=== PATIENT | female | born 1945 | race Caucasian/White ===

== ENCOUNTER 2017-05-29 00:51 | Inpatient (IN) | payer MEDICARE, MEDICAID ==
[2017-05-29] MEDS ORDERED: NS 0.9% 1000 ML* 1,000 ML IV SCH (01:30)
[2017-05-29 01:50] LABS: Hematocrit 33 % (35-47); Hemoglobin 10.8 g/dl (12.0-16.0); Mean Corpuscular HGB Conc 33 g/dl (31-36); Mean Corpuscular Hemoglobin 31 pg (27-31); Mean Corpuscular Volume 93 fL (80-97); Mean Platelet Volume 8 um3 (7.4-10.4); Red Blood Count 3.54 10^6/ul (4.0-5.4); Red Cell Distribution Width 16 % (10.5-15); White Blood Count 6.8 10^3/ul (3.5-10.8)
[2017-05-29 02:04] LABS: ALT 17 U/L (7-52); AST 16 U/L (13-39); Albumin 3.9 g/dL (3.2-5.2); Alkaline Phosphatase 51 U/L (34-104); Anion Gap 7 mmol/L (2-11); BUN/Creatinine Ratio 25.5 (8-20); Blood Urea Nitrogen 26 mg/dL (6-24); C Reactive Protein < 1.00 mg/L (< 5.00); CO2 Carbon Dioxide 28 mmol/L (22-32); Calcium 9.3 mg/dL (8.6-10.3); Chloride 97 mmol/L (101-111); Creatine Kinase 62 U/L (10-223); EGFR African American 68.3 (>60); EGFR Non-African American 53.1 (>60); Globulin 3.1 g/dL (2-4); Glucose 83 mg/dL (70-100); Lipase 15 U/L (11.0-82.0); Magnesium 1.9 mg/dL (1.9-2.7); Potassium 4.2 mmol/L (3.5-5.0); Sodium 132 mmol/L (133-145)
[2017-05-29 02:05] LABS: Troponin I 0.02 ng/mL (<0.04)
--- NOTE | 2017-05-29 02:15 | HP ---
H&P (Free Text) History and Physical: PCP: Mario Gordon MD Cardiology: Drew Perez MD Date/Time of Evaluation: 05/29/2017 CC: SOB HPI: Mrs Randhawa is a 71YO female HX CAD/stent x14, DM2 presenting with 2 days of increasing SOB, severe with lying flat and mild/mod with sitting up. She has had some mild nausea without emesis, subjective fevers without chills, sweats, generalized weakness, light-headedness without syncope, normal bowel/bladder, no rash/open wounds, and no cough/congestion. She has had to remove her rings 2nd swelling. She denies HX of similar. PMedHx CAD/LA/stent x14 chronic diastolic HF DM2 HX thyroid CA s/p thyroidectomy on surveillance for concern of recurrence hypothyroidism, post-surgical HTN HLD GERD depression Ambulatory Orders Nursing to reconcile. Levothyroxine TAB* [Synthroid 100 MCG TAB*] 200 mcg PO DAILY 03/16/14 metFORMIN* [Glucophage*] 500 mg PO BID 03/16/14 zzInsulin inj LISPRO* [Humalog*] 125 units SUBCUT DAILY 03/16/14 Aspirin EC Low Dose* [Ecotrin EC Low Dose*] 81 mg PO DAILY 03/12/16 Losartan Potassium 100 mg PO DAILY 03/12/16 Nitroglycerin TAB 0.4 MG* 0.4 mg SL Q5M PRN 03/12/16 Ranolazine [Ranexa] 1,000 mg PO BID 03/12/16 Isosorbide Mononitrate [Isosorbide Mononitrate ER] 60 mg PO 04/20/16 Lubiprostone (NF) [Amitiza (NF)] 8 mcg PO Q12HR 04/20/16 Benzonatate CAP* [Tessalon 100 MG CAP*] 200 mg PO TID PRN 05/29/17 Budesonide/Formote 160/4.5(NF) [Symbicort 160/4.5 (NF)] 1 puff INH PRN 05/29/17 Cholecalciferol [Vitamin D] 2,000 unit PO DAILY 05/29/17 Clopidogrel TAB* [Plavix TAB*] 75 mg PO DAILY 05/29/17 Esomeprazole Magnesium [Nexium] 40 mg PO DAILY 05/29/17 Gabapentin CAP(*) [Neurontin 300 CAP(*)] 600 mg PO TID 05/29/17 Hydrochlorothiazide TAB* [Hydrodiuril TAB*] 25 mg PO DAILY 05/29/17 Lovastatin [Altoprev] 80 mg PO BEDTIME 05/29/17 Metoprolol Succinate XL TAB* [Toprol XL TAB*] 25 mg PO BEDTIME 05/29/17 Metoprolol Succinate XL TAB* [Toprol XL TAB*] 50 mg PO DAILY 05/29/17 Rosuvastatin Calcium 20 mg PO BEDTIME 05/29/17 Sitagliptin Phosphate [Januvia] 100 mg PO DAILY 05/29/17 buPROPion TAB* [Wellbutrin TAB*] 300 mg PO BID 05/29/17 Allergies Morphine Allergy (Severe, Verified 05/29/17 00:56) Hives Penicillins Allergy (Severe, Verified 05/29/17 00:56) Rash And Itching Propoxyphene [From Darvon] Allergy (Verified 05/29/17 00:56) Hives PSurgHx OU cataract extractions tonsillectomy thyroidectomy for CA cardiac stents x14 lumbar surgery hysterectomy B TKA R bunionectomy SocHx: quit smoking ~15years ago w/ 30PYHX, no significant alcohol, denies recreational drug use; lives with a male friend; full code status FamHx: Mother: of CVA in her 80s; Father: HX CAD, of lung CA in his 60s; Brother: of [place] in his 50s; Brother2: CAD/CABG, cardiomyopathy/AICD; Sister: pacer ROS: as above, otherwise reviewed and all were negative Constitutional: NAD, normally developed, obese elderly white female Vital Signs Temp 36.4 C 05/29/17 01:00 Pulse 52 05/29/17 02:00 Resp 18 05/29/17 02:35 BP 163/65 05/29/17 02:00 Pulse Ox 96 05/29/17 02:00 Intake & Output 05/28/17 05/28/17 05/29/17 11:59 23:59 11:59 Weight 104.326 kg HEENM: atraumatic; sclera/conjunctiva: non-icteric/clear; hearing: clinically intact; oropharynx: clear, mucosa moist Neck: soft tissue: non-tender; thyroid: normal Pulmonary: clear to auscultation bilaterally, good aeration, no accessory muscle use CV: RR/RR, normal S1S2, no carotid bruit, no jugular venous distention, 2+ B DP/ PT, trace BLE edema Abdominal: soft, non-distended, non-tender, no rebound/guarding/rigidity, normoactive bowel sounds, no hepatosplenomegaly or masses, no costovertebral angle tenderness Musculoskeletal: general: grossly intact; gait: stable Integumental: normal appearance and texture of exposed skin Psychiatric orientation: AA&O to PPS affect: calm mood: cooperative eye contact: good content: reliable responses: timely insight: good Testing: Lab Results 05/29/17 05/29/17 05/29/17 Range/Units 01:33 01:33 01:33 WBC 6.8 (3.5-10.8) 10^3/ul RBC 3.54 L (4.0-5.4) 10^6/ul Hgb 10.8 L (12.0-16.0) g/dl Hct 33 L (35-47) % MCV 93 (80-97) fL MCH 31 (27-31) pg MCHC 33 (31-36) g/dl RDW 16 H (10.5-15) % Plt Count 192 (150-450) 10^3/ul MPV 8 (7.4-10.4) um3 Neut % (Auto) 51.8 (38-83) % Lymph % (Auto) 35.9 (25-47) % Rowan % (Auto) 9.7 H (1-9) % Eos % (Auto) 2.0 (0-6) % Baso % (Auto) 0.6 (0-2) % Absolute Neuts (auto) 3.5 (1.5-7.7) 10^3/ul Absolute Lymphs (auto) 2.5 (1.0-4.8) 10^3/ul Absolute Monos (auto) 0.7 (0-0.8) 10^3/ul Absolute Eos (auto) 0.1 (0-0.6) 10^3/ul Absolute Basos (auto) 0 (0-0.2) 10^3/ul Absolute Nucleated RBC 0 10^3/ul Nucleated RBC % 0 INR (Anticoag Therapy) 0.92 (0.89-1.11) APTT 49.8 H (26.0-36.3) seconds Sodium 132 L (133-145) mmol/L Potassium 4.2 (3.5-5.0) mmol/L Chloride 97 L (101-111) mmol/L Carbon Dioxide 28 (22-32) mmol/L Anion Gap 7 (2-11) mmol/L BUN 26 H (6-24) mg/dL Creatinine 1.02 H (0.51-0.95) mg/dL Est GFR ( Amer) 68.3 (>60) Est GFR (Non-Af Amer) 53.1 (>60) BUN/Creatinine Ratio 25.5 H (8-20) Glucose 83 (70-100) mg/dL Lactic Acid (0.5-2.0) mmol/L Calcium 9.3 (8.6-10.3) mg/dL Magnesium 1.9 (1.9-2.7) mg/dL Total Bilirubin 0.40 (0.2-1.0) mg/dL AST 16 (13-39) U/L ALT 17 (7-52) U/L Alkaline Phosphatase 51 (34-104) U/L Total Creatine Kinase 62 (10-223) U/L CK-MB (CK-2) 1.8 (0.6-6.3) ng/mL Troponin I 0.02 (<0.04) ng/mL C-Reactive Protein < 1.00 (< 5.00) mg/L B-Natriuretic Peptide ( - 100) pg/mL Total Protein 7.0 (6.4-8.9) g/dL Albumin 3.9 (3.2-5.2) g/dL Globulin 3.1 (2-4) g/dL Albumin/Globulin Ratio 1.3 (1-3) Lipase 15 (11.0-82.0) U/L TSH 2.00 (0.34-5.60) mcIU/mL 05/29/17 05/29/17 Range/Units 01:33 01:33 WBC (3.5-10.8) 10^3/ul RBC (4.0-5.4) 10^6/ul Hgb (12.0-16.0) g/dl Hct (35-47) % MCV (80-97) fL MCH (27-31) pg MCHC (31-36) g/dl RDW (10.5-15) % Plt Count (150-450) 10^3/ul MPV (7.4-10.4) um3 Neut % (Auto) (38-83) % Lymph % (Auto) (25-47) % Rowan % (Auto) (1-9) % Eos % (Auto) (0-6) % Baso % (Auto) (0-2) % Absolute Neuts (auto) (1.5-7.7) 10^3/ul Absolute Lymphs (auto) (1.0-4.8) 10^3/ul Absolute Monos (auto) (0-0.8) 10^3/ul Absolute Eos (auto) (0-0.6) 10^3/ul Absolute Basos (auto) (0-0.2) 10^3/ul Absolute Nucleated RBC 10^3/ul Nucleated RBC % INR (Anticoag Therapy) (0.89-1.11) APTT (26.0-36.3) seconds Sodium (133-145) mmol/L Potassium (3.5-5.0) mmol/L Chloride (101-111) mmol/L Carbon Dioxide (22-32) mmol/L Anion Gap (2-11) mmol/L BUN (6-24) mg/dL Creatinine (0.51-0.95) mg/dL Est GFR ( Amer) (>60) Est GFR (Non-Af Amer) (>60) BUN/Creatinine Ratio (8-20) Glucose (70-100) mg/dL Lactic Acid 1.6 (0.5-2.0) mmol/L Calcium (8.6-10.3) mg/dL Magnesium (1.9-2.7) mg/dL Total Bilirubin (0.2-1.0) mg/dL AST (13-39) U/L ALT (7-52) U/L Alkaline Phosphatase (34-104) U/L Total Creatine Kinase (10-223) U/L CK-MB (CK-2) (0.6-6.3) ng/mL Troponin I (<0.04) ng/mL C-Reactive Protein (< 5.00) mg/L B-Natriuretic Peptide 206 H ( - 100) pg/mL Total Protein (6.4-8.9) g/dL Albumin (3.2-5.2) g/dL Globulin (2-4) g/dL Albumin/Globulin Ratio (1-3) Lipase (11.0-82.0) U/L TSH (0.34-5.60) mcIU/mL ECG, personally reviewed: junctional bradycardia rate 37, no ischemia CXR, personally reviewed: mild pulmonary vascular congestion w/o focal infiltrate ECHO (03/14/2016): Conclusions: The study is technically limited due to patient body habitus. Off axis parasternal views , suboptimal for interrogation. Moderate concentric left ventricular hypertrophy is observed. The left ventricle appears hyperdynamic. Abnormal left ventricular diastolic filling is observed, consistent with impaired relaxation. The left atrium is mildly dilated. There is trace to mild mitral regurgitation. There is mild mitral stenosis. Moderate mitral annular calcification present. There is trace tricuspid regurgitation. Compared to report of study from 03/17/2014 there is no significant change. Impression: 71F HX CAD/stent x13, DM2, HTN, HLD presents with acute on chronic diastolic HF 2nd junctional bradycardia DIAGNOSIS & PLAN Primary symptomatic junctional bradycardia : D/C metoprolol : telemetry : trend troponin : maintain pacer pads w/ generator attached for emergency use : NPO x/ meds w/ sips H2O : consult cardiology in AM : supplemental oxygen : supportive care acute on chronic diastolic HF 2nd junctional bradycardia : furosemide diuresis : strict I&Os : daily weights Secondary CAD/LA/stent x14 : continue aspirin, clopidogrel, ranolazine DM2 : hold sitagliptin : update A1c : NPO x/ meds w/ sips H2O, as above : basal/correctional insulin HTN : continue losartan : hold HCTZ HLD : continue rosuvastatin hypothyroidism : continue levothyroxine GERD : continue esomeprazole depression : continue bupropion XL Admission Rational: inpatient for symptomatic bradycardia w/ 2nd AoC diastolic HF at risk of terminal decompensation; inappropriate for outpatient setting DVTp: SCDs Code Status: full HCP: daughter, Payton Mcmullen (primary); domestic partner, Rusty Jean Baptiste ( secondary)
--- NOTE | 2017-05-29 03:37 | ED ---
Satya Urbina Rebecca, scribed for Luis Ventura MD on 05/29/17 at 0128 . Shortness of Breath - HPI Summary HPI Summary: Pt is a 71 y/o F who presents to ED c/o SOB. SOB has been present for the last 2 nights, characterized as dyspnea at rest. Sx aggravated by laying down, alleviated by nothing. Additionally c/o bilateral hand numbness and edema. Denies calf pain and chest pain. No prior similar episodes. Takes Metoprolol 25 mg 3x per day. PMHx [place]. - History of Current Complaint Chief Complaint: EDShortnessOfBreath Time Seen by Provider: 05/29/17 01:22 Hx Obtained From: Patient Onset/Duration: Lasting Days - 2 days, Still Present Timing: Intermittent Episodes Lasting: - Present at night Dyspnea At: Rest Aggrevating Factors: Recumbent Position - Laying down Alleviating Factors: Nothing Associated Signs & Symptoms: Edema - Allergy/Home Medications Allergies/Adverse Reactions: Allergies Allergy/AdvReac Type Severity Reaction Status Date / Time Morphine Allergy Severe Hives Verified 05/29/17 00:56 Penicillins Allergy Severe Rash And Verified 05/29/17 00:56 Itching Propoxyphene [From Darvon] Allergy Hives Verified 05/29/17 00:56 PMH/Surg Hx/FS Hx/Imm Hx Endocrine/Hematology History: Reports: Hx Diabetes Cardiovascular History: Reports: Hx Angina, Hx Coronary Artery Disease - 14 STENTS, Hx Hypercholesterolemia, Hx Hypertension, Hx Myocardial Infarction Denies: Hx Congestive Heart Failure, Hx Pacemaker/ICD Respiratory History: Denies: Hx Asthma History: Denies: Hx Renal Disease Sensory History: Denies: Hx Hearing Aid Psychiatric History: Denies: Hx Panic Disorder - Cancer History Cancer Type, Location and Year: THYROID 2009 - Surgical History Surgery Procedure, Year, and Place: THYROIDECTOMY -BILATERAL CATARACTS. 05/04/11 -4 CARDIAC STENTS [facility]. 01/20/16-2 CARDIAC STENTS RESOLUTE INTEGRITY-ALL STENTS APPROVE FOR 1.5 OR 3T AND WILL BE SCANNED IN NORMAL MODE-INFO IN OTHER FACILITY INFO. BACK SURGERY MANY YEARS [id number] KNEE REPLACEMENT-BILATERAL FEET SURGERY Infectious Disease History: No Infectious Disease History: Denies: Traveled Outside the [place] in Last 30 Days - Family History Known Family History: Positive: Cardiac Disease - Brother with CAD/[place] at 50 - Social History Alcohol Use: None Substance Use Type: Reports: None Hx Tobacco Use: Yes Smoking Status (MU): Former Smoker Type: Cigarettes Have You Smoked in the Last Year: No Review of Systems Negative: Chest Pain Positive: Shortness Of Breath Positive: Edema, Other - Denies calf pain Positive: Numbness - Bilateral hand numbness All Other Systems Reviewed And Are Negative: Yes Physical Exam - Summary Physical Exam Summary: General: well-appearing, no pain distress Skin: warm, color reflects adequate perfusion, dry Head: normal Eyes: EOMI, ALEXA ENT: normal Neck: supple, nontender Respiratory: CTA, breath sounds present Cardiovascular: Bradycardic Abdomen: soft, nontender Bowel: present Musculoskeletal: strength/ROM intact, bilateral pedal edema Neurological: normal, sensory/motor intact, A&O x3 Psychological: affect/mood appropriate Triage Information Reviewed: Yes Vital Signs On Initial Exam: Initial Vitals Temp Pulse Resp BP Pulse Ox 97.6 F 59 16 157/121 97 05/29/17 00:56 05/29/17 00:56 05/29/17 00:56 05/29/17 00:56 05/29/17 00:56 Vital Signs Reviewed: Yes Diagnostics - Vital Signs Vital Signs Temp Pulse Resp BP Pulse Ox 05/29/17 01:00 97.6 F 59 16 157/121 98 05/29/17 00:56 97.6 F 59 16 157/121 97 - Laboratory Lab Results: Lab Results 05/29/17 05/29/17 05/29/17 Range/Units 01:33 01:33 01:33 WBC 6.8 (3.5-10.8) 10^3/ul RBC 3.54 L (4.0-5.4) 10^6/ul Hgb 10.8 L (12.0-16.0) g/dl Hct 33 L (35-47) % MCV 93 (80-97) fL MCH 31 (27-31) pg MCHC 33 (31-36) g/dl RDW 16 H (10.5-15) % Plt Count 192 (150-450) 10^3/ul MPV 8 (7.4-10.4) um3 Neut % (Auto) 51.8 (38-83) % Lymph % (Auto) 35.9 (25-47) % Coles % (Auto) 9.7 H (1-9) % Eos % (Auto) 2.0 (0-6) % Baso % (Auto) 0.6 (0-2) % Absolute Neuts (auto) 3.5 (1.5-7.7) 10^3/ul Absolute Lymphs (auto) 2.5 (1.0-4.8) 10^3/ul Absolute Monos (auto) 0.7 (0-0.8) 10^3/ul Absolute Eos (auto) 0.1 (0-0.6) 10^3/ul Absolute Basos (auto) 0 (0-0.2) 10^3/ul Absolute Nucleated RBC 0 10^3/ul Nucleated RBC % 0 INR (Anticoag Therapy) 0.92 (0.89-1.11) APTT 49.8 H (26.0-36.3) seconds Sodium 132 L (133-145) mmol/L Potassium 4.2 (3.5-5.0) mmol/L Chloride 97 L (101-111) mmol/L Carbon Dioxide 28 (22-32) mmol/L Anion Gap 7 (2-11) mmol/L BUN 26 H (6-24) mg/dL Creatinine 1.02 H (0.51-0.95) mg/dL Est GFR ( Amer) 68.3 (>60) Est GFR (Non-Af Amer) 53.1 (>60) BUN/Creatinine Ratio 25.5 H (8-20) Glucose 83 (70-100) mg/dL Lactic Acid (0.5-2.0) mmol/L Calcium 9.3 (8.6-10.3) mg/dL Magnesium 1.9 (1.9-2.7) mg/dL Total Bilirubin 0.40 (0.2-1.0) mg/dL AST 16 (13-39) U/L ALT 17 (7-52) U/L Alkaline Phosphatase 51 (34-104) U/L Total Creatine Kinase 62 (10-223) U/L CK-MB (CK-2) 1.8 (0.6-6.3) ng/mL Troponin I 0.02 (<0.04) ng/mL C-Reactive Protein < 1.00 (< 5.00) mg/L B-Natriuretic Peptide ( - 100) pg/mL Total Protein 7.0 (6.4-8.9) g/dL Albumin 3.9 (3.2-5.2) g/dL Globulin 3.1 (2-4) g/dL Albumin/Globulin Ratio 1.3 (1-3) Lipase 15 (11.0-82.0) U/L TSH 2.00 (0.34-5.60) mcIU/mL 05/29/17 05/29/17 Range/Units 01:33 01:33 WBC (3.5-10.8) 10^3/ul RBC (4.0-5.4) 10^6/ul Hgb (12.0-16.0) g/dl Hct (35-47) % MCV (80-97) fL MCH (27-31) pg MCHC (31-36) g/dl RDW (10.5-15) % Plt Count (150-450) 10^3/ul MPV (7.4-10.4) um3 Neut % (Auto) (38-83) % Lymph % (Auto) (25-47) % Coles % (Auto) (1-9) % Eos % (Auto) (0-6) % Baso % (Auto) (0-2) % Absolute Neuts (auto) (1.5-7.7) 10^3/ul Absolute Lymphs (auto) (1.0-4.8) 10^3/ul Absolute Monos (auto) (0-0.8) 10^3/ul Absolute Eos (auto) (0-0.6) 10^3/ul Absolute Basos (auto) (0-0.2) 10^3/ul Absolute Nucleated RBC 10^3/ul Nucleated RBC % INR (Anticoag Therapy) (0.89-1.11) APTT (26.0-36.3) seconds Sodium (133-145) mmol/L Potassium (3.5-5.0) mmol/L Chloride (101-111) mmol/L Carbon Dioxide (22-32) mmol/L Anion Gap (2-11) mmol/L BUN (6-24) mg/dL Creatinine (0.51-0.95) mg/dL Est GFR ( Amer) (>60) Est GFR (Non-Af Amer) (>60) BUN/Creatinine Ratio (8-20) Glucose (70-100) mg/dL Lactic Acid 1.6 (0.5-2.0) mmol/L Calcium (8.6-10.3) mg/dL Magnesium (1.9-2.7) mg/dL Total Bilirubin (0.2-1.0) mg/dL AST (13-39) U/L ALT (7-52) U/L Alkaline Phosphatase (34-104) U/L Total Creatine Kinase (10-223) U/L CK-MB (CK-2) (0.6-6.3) ng/mL Troponin I (<0.04) ng/mL C-Reactive Protein (< 5.00) mg/L B-Natriuretic Peptide 206 H ( - 100) pg/mL Total Protein (6.4-8.9) g/dL Albumin (3.2-5.2) g/dL Globulin (2-4) g/dL Albumin/Globulin Ratio (1-3) Lipase (11.0-82.0) U/L TSH (0.34-5.60) mcIU/mL Result Diagrams: 05/29/17 01:33 05/29/17 01:33 Lab Statement: Any lab studies that have been ordered have been reviewed, and results considered in the medical decision making process. - Radiology CXR Xray Interpretation: Positive (See Comments) - CHF with cephalizationof vasculature Radiology Interpretation Completed By: ED Physician - EKG 0120 Cardiac Rate: Bradycardia - [address] Segment: Normal Ectopy: None EKG Interpretation: Junctional rhythm at 33 bpm Course/Dx - Course Course Of Treatment: ADMIT DUE TO SYMPTOMATIC JUNCTIONAL BRADYCARDIA. PACER PADS PLACED ON PATIENT IN ED. - Diagnoses Provider Diagnoses: Bradycardia, Junctional cardiac arrhythmia, CHF (congestive heart failure) - Physician Notifications Discussed Care of Patient With: Ricardo Miller Time Discussed With Above Provider: 02:12 Instructed by Provider To: Other - Accepts pt for admission. - Critical Care Time Critical Care Time: 30-74 min Discharge - Discharge Plan Condition: Guarded Disposition: ADMITTED TO [facility] documentation as recorded by the Satya victor Rebecca accurately reflects the service I personally performed and the decisions made by , Luis Ventura MD.
[2017-05-29] MEDS ORDERED: Furosemide IV* 10 MG/ML VIAL (40 MG) IV ONE (03:59)
[2017-05-29] MEDS: Insulin LISPRO* 1 UNITS UNIT SUBCUT SCH ×6 (04:35→21:26)
[2017-05-29 05:05] LABS: Urine Bilirubin Negative (Negative); Urine Glucose Negative (Negative); Urine Nitrite Negative (Negative)
[2017-05-29] MEDS: Levothyroxine TAB* 100 MCG TAB PO SCH (06:02)
[2017-05-29 06:07] LABS: Hematocrit 33 % (35-47); Hemoglobin 10.7 g/dl (12.0-16.0); Mean Corpuscular HGB Conc 33 g/dl (31-36); Mean Corpuscular Hemoglobin 31 pg (27-31); Mean Corpuscular Volume 94 fL (80-97); Mean Platelet Volume 8 um3 (7.4-10.4); Red Blood Count 3.49 10^6/ul (4.0-5.4); Red Cell Distribution Width 16 % (10.5-15); White Blood Count 6.8 10^3/ul (3.5-10.8)
[2017-05-29 06:25] LABS: Troponin I 0.01 ng/mL (<0.04)
[2017-05-29 06:26] LABS: BUN/Creatinine Ratio 25.8 (8-20); Calcium 9.4 mg/dL (8.6-10.3); EGFR African American 72.4 (>60); EGFR Non-African American 56.3 (>60); Potassium 4.1 mmol/L (3.5-5.0)
--- NOTE | 2017-05-29 07:48 | RAD ---
INDICATION: Shortness of breath. COMPARISON: Comparison is made with prior chest x-ray studies from March 15, 2012 and March 12, 2016. TECHNIQUE: A portable view of the chest was obtained. FINDINGS: Cardiac and mediastinal contours appear to be within normal limits. The lungs are clear. No pleural effusion is seen. IMPRESSION: NO EVIDENCE FOR ACUTE DISEASE.
[2017-05-29] MEDS: Gabapentin CAP(*) 300 MG PO SCH ×3 (08:00→21:25)
[2017-05-29] MEDS: BuPROPion XL* 300 MG TAB.XL PO SCH (08:00)
[2017-05-29] MEDS: Aspirin EC Low Dose* 81 MG TAB.EC PO SCH (08:00)
[2017-05-29] MEDS: Clopidogrel TAB* 75 MG PO SCH (08:00)
[2017-05-29] MEDS: Losartan TAB* 25 MG PO SCH (08:00)
[2017-05-29] MEDS: Furosemide IV* 10 MG/ML 2 ML VIAL (20 MG) IV SCH ×2 (08:00→12:15)
[2017-05-29] MEDS: CMCS: Pantoprazole TAB (NF) 40 MG TAB PO SCH (08:01)
[2017-05-29] MEDS ORDERED: Albuterol 2.5 MG/3 ML NEB.SOL* (0.083%) INH PRN (08:18)
[2017-05-29] MEDS ORDERED: Perflutren Lipid Microsphere* 3 ML VIAL ONE (09:31)
[2017-05-29] MEDS: RANOLAZINE 1000 MG PO SCH ×2 (09:45→21:28)
[2017-05-29] MEDS: LUBIPROSTONE 8 MCG PO SCH ×2 (09:55→21:27)
[2017-05-29] MEDS: Ranolazine (NF) 500 MG TAB PO SCH ×2 (09:57→10:21)
[2017-05-29] MEDS ORDERED: Acetaminophen TAB* 325 MG PO PRN (11:47)
[2017-05-29] MEDS ORDERED: hydrALAZINE IV* 20 MG/ML VIAL IV SLOW PU PRN (11:48)
--- NOTE | 2017-05-29 13:23 | ECHO ---
Patient: MARY SWAIN [facility] Rec#: [id number] : 1945 Date: 05/29/2017 Age: 71y Height: 170.18 cm / 67.0 in Weight: 113.4 kg / 249.9 lbs Sex: F BSA: 2.22 Room#: ICU 2 Admit Date#: 05/29/2017 Type: Inpatient Referring: Brandi Laughlin MD Reading: Dalia Luke MD Channel Director: Brittnee Talley RDCS,RDMS CC: Sade Gordon MD Transthoracic Echocardiogram Indication: CHF, SOB BP: 128/43 HR: 55 Rhythm: Bradycardia Findings History: CAD, PCI, CHF, DM, HTN, HLD Technical Comments: The study quality is fair. Completed 1015 Left Ventricle: The left ventricular chamber size is normal. Mild concentric left ventricular hypertrophy is observed. Basal interventricular septum shows moderate thickening. There is normal left ventricular systolic function. The estimated ejection fraction is 55-60%. Abnormal left ventricular diastolic filling is observed, consistent with impaired relaxation. Left Atrium: The left atrium is mildly dilated. Right Ventricle: The right ventricular chamber size and systolic function are within normal limits. Right Atrium: The right atrial cavity size is normal. Aortic Valve: The aortic valve structure is not well visualized. There is aortic annular calcification. There is no evidence of aortic regurgitation. There is mild aortic stenosis. The mean gradient of the aortic valve is 11 mmHg. The aortic valve area, by peak velocities, is calculated at 1.7 cm2. Mitral Valve: Moderate mitral annular calcification present. The mitral valve leaflets are mildly thickened. Mitral valve leaflet mobility is mildly restricted. There is mild mitral regurgitation. There is mild mitral stenosis. The mitral valve area, by pressure half time, is calculated at 2.5 cm2. Tricuspid Valve: The tricuspid valve leaflets are normal. There is trace tricuspid regurgitation. Unable to estimate the right ventricular systolic pressure. Pulmonic Valve: The pulmonic valve structure is not well visualized. Pericardium: There is no significant pericardial effusion. Aorta: The ascending aorta is not well visualized. There is no dilatation of the aortic arch. The aortic root is normal in size. There is plaque visualized in the transverse aorta. Pulmonary Artery: The main pulmonary artery is not well visualized. Venous: The inferior vena cava is dilated. There is less than 50% respiratory change in the inferior vena cava dimension. Contrast: Definity was used to optimize study. A total of 4 ml was used Conclusions Mild concentric left ventricular hypertrophy is observed. The left ventricular chamber size is lower limits of normal. There is normal left ventricular systolic function. The estimated ejection fraction is 55-60%. Abnormal left ventricular diastolic filling is observed, consistent with impaired relaxation. The right ventricular chamber size and systolic function are within normal limits. There is mild aortic stenosis: mean gradient is 11 mmHg, EVY by peak velocity is 1.7 cm2. Moderate mitral annular calcification present. Mitral valve leaflet mobility is mildly restricted, atnerior leaflet moves well. There is mild mitral regurgitation. There is mild mitral stenosis, mean gradient 3.7 mmHg, MVA P 1/2 is 2.5 cm2. There is trace tricuspid regurgitation. Compared with prior echo of 03/14/16, LVH previously moderate, LVEF is stable, MV deceleration time has progressed minimally, previously 309 ms. Mild new, peak gradient has increased from 10 to 19 mmmHg. Measurements Name Value Normal Range RVIDd (AP) 2D 3.2 cm (0.9 - 2.6) RVDdMajor (2D) 3.7 cm (2.2 - 4.4) RAd ISD 4CH 4.2 cm (3.4 - 4.9) RA (A4C)W 3.6 cm (2.9 - 4.6) IVSd (2D) 1.8 cm (0.6 - 1) LVPWd (2D) 1.2 cm (0.6 - 1) LVIDd (2D) 3.7 cm (3.6 - 5.4) LVIDs (2D) 2.4 cm - LV FS (2D) 36 % (25 - 45) Aortic Annulus 2 cm (1.4 - 2.6) Ao root diameter (2D) 2.4 cm (2.1 - 3.5) Aortic arch 2.5 cm (1.8 - 3.4) LA dimension (AP) 2D 4.1 cm (2.3 - 3.8) LAd ISD 4CH 5.9 cm (2.9 - 5.3) LA ISD 4CH W 4.3 cm (2.5 - 4.5) Name Value Normal Range LA ESV SP 4CH (A/L) 91.69 ml - LA ESV SP 2CH (A/L) 71.58 ml - LA ESV BP (A/L) 81.14 ml - LA ESV BP (A/L) index 36.4 ml/m2 - LA ESV SP 4CH (MOD) 87.54 ml - LA ESV SP 2CH (MOD) 68.74 ml - Name Value Normal Range MV E-wave Vmax 1.2 m/sec - MV deceleration time 330 msec - MV A-wave Vmax 1.4 m/sec - MV E:A ratio 0.9 ratio - P. vein S-wave Vmax 0.4 m/sec - P. vein D-wave Vmax 0.4 m/sec - P. vein S:D Vmax ratio 1 ratio - P. vein A-wave duration 166 msec - LV septal e' Vmax 0.05 m/sec - LV lateral e' Vmax 0.06 m/sec - LV E:e' septal ratio 24 ratio - LV E:e' lateral ratio 20 ratio - Name Value Normal Range AV Vmax 2.2 m/sec - AV VTI 57 cm - AV peak gradient 19 mmHg - AV mean gradient 11 mmHg - LVOT diameter 2 cm - LVOT Vmax 1.2 m/sec - LVOT VTI 30 cm - LVOT peak gradient 6 mmHg - LVOT mean gradient 2.9 mmHg - DOI (VTI) 0.5 ratio - EVY (continuity Vmax) 1.7 cm2 - EVY (continuity VTI) 1.7 cm2 - Name Value Normal Range MV Vmax 1.6 m/sec - MV VTI 63 cm - MV peak gradient 10 mmHg - MV mean gradient 3.7 mmHg - MV PHT 89 msec - MVA (PHT) 2.5 cm2 - MVA (continuity VTI) 1.5 cm2 - Name Value Normal Range RAP 8 mmHg - IVC diameter 2.6 cm - Name Value Normal Range PV Vmax 1.3 m/sec - PV peak gradient 7 mmHg -
[2017-05-29] MEDS ORDERED: Dextrose 50% Syringe 50 ML* 25 GM/50 ML SYRINGE IV PUSH PRN (13:38)
[2017-05-29] MEDS ORDERED: Insulin LISPRO* FOR INSULIN PUMP SUBCUT SCH (15:00)
--- NOTE | 2017-05-29 16:09 | PN ---
Subjective Date of Service: 05/29/17 Interval History: HOSPITALIST PROGRESS NOTE Patient seen and examined at bedside. She feels better this AM, as long as her HOB is elevated. She tells me a couple months ago she started to have progressive dyspnea on exertion, followed by PND and orthopnea over the past week. Denies CP or pressure. Describes episodes of her "heart flopping" in her chest and then returning to normal. Family History: Unchanged from Admission Social History: Unchanged from Admission Past Medical History: Unchanged from Admission Objective Active Medications: Acetaminophen (Tylenol Tab*) 650 mg PO Q6H PRN PRN Reason: pain/fever Last Admin: 05/29/17 12:15 Dose: 650 mg Albuterol (Ventolin 2.5 Mg/3 Ml Neb.Betty*) 2.5 mg INH Q4H PRN PRN Reason: SOB/WHEEZING Aspirin (Aspirin Ec Low Dose*) 81 mg PO DAILY [facility] Last Admin: 05/29/17 08:00 Dose: 81 mg Atorvastatin Calcium (Lipitor*) 40 mg PO BEDTIME JB PRN Reason: Protocol Bupropion HCl (Bupropion Xl*) 300 mg PO DAILY [facility] Last Admin: 05/29/17 08:00 Dose: 300 mg Clopidogrel Bisulfate (Plavix Tab*) 75 mg PO DAILY [facility] Last Admin: 05/29/17 08:00 Dose: 75 mg Dextrose (D50w Syringe 50 Ml*) 12.5 gm IV PUSH .FOR FS < 60 - SS PRN PRN Reason: FS < 60 Furosemide (Lasix Iv*) 20 mg IV 0800,1200 [facility] Last Admin: 05/29/17 12:15 Dose: 20 mg Gabapentin (Neurontin Cap(*)) 600 mg PO TID [facility] Last Admin: 05/29/17 12:15 Dose: 600 mg Hydralazine HCl (Apresoline Iv*) 5 mg IV SLOW PU Q6H PRN PRN Reason: SBP>180 Last Admin: 05/29/17 12:15 Dose: 5 mg Insulin Human Lispro (Humalog*) 0 units SUBCUT AC JB PRN Reason: Protocol Insulin Human Lispro (Humalog*) 0 units SUBCUT ACHS JB PRN Reason: Protocol Insulin Human Lispro (Humalog*) 0 units SUBCUT .SEE PROTOCOL JB PRN Reason: Protocol Levothyroxine Sodium (Synthroid Tab*) 200 mcg PO 0600 [facility] Last Admin: 05/29/17 06:02 Dose: 200 mcg Losartan Potassium (Cozaar Tab*) 100 mg PO DAILY [facility] Last Admin: 05/29/17 08:00 Dose: 100 mg Lubiprostone (Amitiza (Nf)) 8 mcg PO Q12HR [facility] Last Admin: 05/29/17 09:55 Dose: 8 mcg Pantoprazole Sodium (Protonix Tab (Nf)) 40 mg PO DAILY [facility] Last Admin: 05/29/17 08:01 Dose: 40 mg Ranolazine (Ranexa) 1,000 mg PO BID [facility] Last Admin: 05/29/17 09:45 Dose: 1,000 mg Vital Signs 05/29/17 05/29/17 05/29/17 10:58 11:00 11:12 Temperature 98.4 F Pulse Rate 55 Respiratory 15 14 Rate Blood Pressure 163/64 (mmHg) O2 Sat by Pulse 95 Oximetry Oxygen Devices in Use Now: Nasal Cannula Appearance: Pleasant elderly lady sitting up in bed in [facility]. Eyes: No Scleral Icterus Ears/Nose/Mouth/Throat: Mucous Membranes Moist Neck: Trachea Midline Respiratory: Symmetrical Chest Expansion and Respiratory Effort, - - BS+ bilaterally with bilateral crackles Cardiovascular: RRR - Normal S1 and S2 Abdominal: NL Sounds; No Tenderness; No Distention Extremities: - - Mild bilateral LE edema Neurological: Alert and Oriented x 3, NL Muscle Strength and Tone Lines/Tubes/Other Access: Clean, Dry and Intact Peripheral IV Nutrition: Taking PO's Result Diagrams: 05/29/17 05:45 05/29/17 05:45 Assess/Plan/Problems-Billing Assessment: Mrs. Randhawa is a 71yo F with PMH of CAD s/p 14 stents (last one in January 2016) , HLD, HTN, diastolic CHF, type 2 DM, thyroid CA s/p thyroidectomy with post surgical hypothyroidism, GERD, depression, obesity, who presented to ED with c/ o dyspnea, found to have CHF exacerbation and significant bradycardia. - Patient Problems (1) Acute diastolic CHF (congestive heart failure) Comment: - Echo shows EF 55-60%, mild , mild MR. - Continue diuresis with Furosemide. - Monitor I/Os and daily weights. - Dietary education. (2) Bradycardia Comment: - There was concern for junctional bradycardia on admission and she's now in sinus bradycardia. - Metoprolol on hold, but with her h/o significant CAD with 14 stents and episodes of "heart flopping around", she'll need beta-blockers again. Cardiology considering pacemaker placement. - Continue to monitor on Telemetry. (3) CAD (coronary artery disease) Comment: - Continue Aspirin, Plavix, and Atorvastatin. (4) Diabetes Comment: - Continue insulin pump with current settings and cover with Lispro SS. - A1c is 8.5. (5) HTN (hypertension) Comment: - Elevated. - Continue Losartan, add Amlodipine and Hydralazine PRN. (6) DVT prophylaxis Comment: - SQ heparin and SCDs. (7) Full code status Status and Disposition: Inpatient.
[2017-05-29] MEDS: amLODIPine TAB* 5 MG PO SCH (17:15)
[2017-05-29] MEDS ORDERED: Furosemide TAB* 40 MG PO SCH (20:00)
[2017-05-29] MEDS ORDERED: Insulin GLARGINE(*) 1 UNITS UNIT SUBCUT SCH (21:00)
[2017-05-29] MEDS: Atorvastatin* 40 MG TAB PO SCH (21:25)
[2017-05-29] MEDS: Heparin VIAL(*) 5000 UNITS/ML VIAL (FIVE THOUSAND) SUBCUT SCH (21:28)
--- NOTE | 2017-05-29 22:36 | CONS ---
CC: Bebeto Perez MD; Primary Care Physician; Hospitalist * CARDIOLOGY CONSULTATION: DATE OF CONSULT: 05/29/17 REASON FOR CONSULTATION: Shortness of breath and bradycardia. HISTORY OF PRESENT ILLNESS: Mrs. Randhawa is a 71-year-old woman followed by my partner, Dr. Perez, with extensive atherosclerotic heart disease and multiple atherosclerotic procedures. The patient states that for 2 months, she has had exertional dyspnea and over the last 2 days, it has progressed to include orthopnea and PND. She presented to the emergency department yesterday and was found in to be in a junctional bradycardia and on clinical exam, there was concern for congestive heart failure. Her beta-nadya was held and she overnight resumed normal sinus rhythm and she was treated with intravenous Lasix and she said there is some improvement in her exertional dyspnea, but she still got winded just getting from the bed to the chair next to the bed in the ICU. The patient does take nitroglycerin occasionally, but she has not taken any in the last 2 months. The patient has occasional flip-flops, but is vague about if these come on. It does not sound like there has been any recent progression or any sustained palpitations. The patient now realizes she eats salty foods things such as tomato soup and other processed foods that are naturally high in salt, but she does not think she has changed her diet recently. Her was present during the exam and concurred with the above reports. PAST MEDICAL HISTORY: 1. The patient has a past medical history of pamunkey atherosclerotic heart disease: In 2006, multiple stents to the right coronary artery, occluded the same year and stayed on medical management, dependent on collateral flow. In 2010, dyspnea on exertion with abnormal stress test and cardiac catheterization at [facility] with eventual transfer to [facility]: LAD less than 50%, left main patent, circumflex non-dominant nominal disease, right coronary artery dominant large PDA with a 90% occlusion, mid and distal RCA and PDA due to severe in-stent restenosis. Distal PDA collateralized from the left. Underwent angioplasty to the PDA, unable to deploy stents, eventually 4 stents placed in the PDA and right coronary artery. 2. Hypertension. 3. Dyslipidemia. 4. Diabetes, insulin dependent. 5. Thyroid disease. 6. Obesity. 7. Reflux. 8. COPD/asthma. 9. Depression. PAST SURGICAL HISTORY: 1. Thyroidectomy. 2. Lumbar surgery. 3. Total knee replacement. 4. Multiple cardiac interventions. MEDICATIONS: Current inpatient medications include: 1. Albuterol inhaler. 2. Tylenol p.r.n. 3. Aspirin 81 mg a day. 4. Lipitor 40 mg a day. 5. Bupropion 300 mg a day. 6. Plavix 75 mg a day. 7. IV Lasix 20 mg since admission. 8. Neurontin 600 mg t.i.d. 9. Subcutaneous heparin. 10. Hydralazine p.r.n. 11. Humalog insulin. 12. Lispro insulin. 13. Synthroid 200 mcg a day. 14. Amitiza 8 mcg q.12 hours. 15. Protonix 40 mg a day. 16. Ranexa 1000 mg b.i.d. ALLERGIES: Include MORPHINE, PENICILLIN and DARVON. FAMILY HISTORY: Significant for diabetes with her brother and sister. Lung cancer (father). Brother with lymphoma. Coronary artery disease (mother of a heart attack, 2 brothers with coronary artery disease). SOCIAL HISTORY: The patient stopped smoking over a decade ago. Lives with her . No active alcohol intake. REVIEW OF SYSTEMS: See history of present illness. No recent dietary changes or travel. She denies recent fevers, chills, sweats, change in bowel or bladder habits. She does admit that her Symbicort, she has not been using regularly because of friends telling her she can develop osteoporosis. She states she has been using other medications regularly including her hydrochlorothiazide. The patient denies bloody stools or black stool. Other review of systems negative. PHYSICAL EXAMINATION: On exam, the patient is 5 feet 7 inches, weighs 249 pounds with a BMI of 39. Vitals on presentation to the emergency department, blood pressure 157/121, pulse was 59, respiratory rate 16, she was afebrile, oxygen saturation 97%. Currently, blood pressure 137/78, pulse is 60, oxygen saturation is 95%, respiratory rate is 14. General Appearance: Morbidly obese elderly woman, lying at 70 degrees and appears reasonably comfortable. Psychologically, pleasant and cooperative. Neurologically, awake, alert, and oriented to person, place, and time. Cranial nerves II through XII intact. Grossly normal sensory and motor function on bed examination, ambulation not observed. HEENT: Pupils are equal and round. Mucous membranes moist. Neck without appreciable increased JVP, although thick palpable carotid pulses without audible bruits. Breath sounds crackles in the bases bilaterally and some fine wheezes in the apex of the lungs. Coronary: Distant S1, S2, regular, did not appreciate murmurs or rubs. Abdomen: Distended and obese, nontender with active bowel sounds. Lower extremities are thick with trace edema. DIAGNOSTIC STUDIES/LAB DATA: Cardiac catheterization, [address] Perez, left main patent LAD, 25% to 30% occlusion, circumflex non-dominant mild disease up to 40% in OM branch; right coronary artery, multiple stents noted, acute OM branch stented, but obstructed with [id number] collateral and competitive flow from collateralization from diagonal branch off the LAD. [place] right coronary artery, mild in-stent restenosis, mid port vessel more distally, significant in-stent stenosis at 65% to 70% followed by a 90% lesion near the posterior left ventricular branch, status post balloon angioplasty and ION drug-eluting stent. Echocardiogram today shows mild left ventricular hypertrophy, left ventricular diameter lower limits of normal, ejection fraction 55% to 60% with abnormal diastolic fillings, mild aortic stenosis, mean gradient 11 mmHg, mitral annular calcification, mildly restricted mitral leaflets, mild mitral insufficiency; mild mitral stenosis, mean gradient 3.7 mmHg. ECG on admission today, 1:20 in the morning shows evidence of sick sinus syndrome with wandering atrial pacer and junctional escape beats at a rate of 37 beats per minute. At 7 o'clock this morning, ECG shows normal sinus rhythm, 55 beats per minute, QRS axis 0, normal AV and IV conduction times and normal ST segments, early transition of her R-waves. Labs, white count 6.8, hemoglobin 10.7, hematocrit 33, platelets 192. INR 0.92 , PTT 50. Sodium 134, potassium 4.1, chloride 98, BUN 25, creatinine 0.97, glucose 115, hemoglobin A1c 8.5, AST 16, ALT 17, troponin 0.02, 0.01, BNP of 206 , TSH 2.0. Urinalysis, leukocyte esterase negative. Chest x-ray reported as no acute disease. Pulmonary function test from 08/10/16 showed FEV1 at 81% of predicted, FVC 92% of predicted, diffusion capacity 81% of predicted and interpretation by Dr. Mcclain showed mild obstructive ventilatory defect with reversibility on bronchodilators. IMPRESSION AND PLAN: In summary, Taylor Randhawa is a 71-year-old woman presenting with a 2-month history of progressive dyspnea on exertion which escalated over the last 48 hours with orthopnea and PND. In the ED, she was found to have evidence of sick sinus syndrome with intermittent junctional beats and this has resolved with beta-blockers held. The patient on exam has evidence of congestive heart failure with some clinical improvement with diuresis. Confounding factors include renal insufficiency. She has evidence of diastolic dysfunction and left sided valvular disease on echo. I think congestive heart failure is the patient's primary problem and it is diastolic related to left ventricular diastolic dysfunction, valvular heart and renal insufficiency. I recommend converting her outpatient hydrochlorothiazide to oral Lasix, I agree with the IV Lasix given today. She may need potassium and/or magnesium replacement. Dietary education for salt in food should provided to the patient and her . The sick sinus syndrome was likely contributing to her symptoms, but I do not think it was the full answer especially considering that she remains very dyspneic despite being in sinus rhythm. There may be a chronotropic incompetence that we have not been able to evaluate to date. I do not feel there is an urgent need for a pacemaker and I do not think she has not demonstrated that she can lie flat yet, but after discussions with her regular operations accountant, Dr. Perez, he feels she will need beta-nadya for protection for her extensive atherosclerotic heart disease and risk of overwhelming her collateral flow, so ultimately she will benefit from a pacemaker implantation, but I do not think it needs to be done urgently, especially considering her normal troponins and lack of using nitroglycerin over the last couple of months despite the above dyspnea and stress. The patient's anemia is mild, but it is new and I think it should worked up as this could also be contributing to her symptoms. It may be delusional, but she is certainly at risk for other etiologies including loss on chronic anticoagulation. With the wheezing in the apices, there may be a contribution of her dyspnea from obstructive disease and I would like to resume her Symbicort round the clock for a couple of months and see how she does. To further summarize, I think the patient's predominant symptomatology is congestive heart failure as above. I would like to more aggressively diurese her. I would like to ambulate her off her beta-nadya on a low level stress test to look for the possibility of chronotropic incompetence and and look at her functional ability and look for inducible ischemia by EKG criteria. If she is able to be discharged to home after this, we could then bring her in electively for a pacemaker implantation. Additional recommendations will be made pending response to the above measures. The patient was quite hypertensive on admission as well and hypertensive heart disease and elevated LVEDP could well be contributing and I agree with Dr. Christensen that more aggressive antihypertensive regimen may also decrease diastolic and exertional failure. [id number]/[facility] #: [id number] MTDD
[2017-05-30] MEDS: Levothyroxine TAB* 100 MCG TAB PO SCH (05:14)
[2017-05-30] MEDS: Heparin VIAL(*) 5000 UNITS/ML VIAL (FIVE THOUSAND) SUBCUT SCH ×2 (05:15→12:50)
[2017-05-30 05:35] LABS: BUN/Creatinine Ratio 24.7 (8-20); Calcium 9.2 mg/dL (8.6-10.3); EGFR Non-African American 59.1 (>60); Potassium 4.3 mmol/L (3.5-5.0)
[2017-05-30 06:02] LABS: Ferritin 19.6 ng/mL (11-307)
[2017-05-30 06:05] LABS: Folate 17.68 ng/mL (>3.99)
[2017-05-30] MEDS: Furosemide IV* 10 MG/ML VIAL (40 MG) IV SCH ×2 (09:02→12:54)
[2017-05-30] MEDS: BuPROPion XL* 300 MG TAB.XL PO SCH (09:05)
[2017-05-30] MEDS: Aspirin EC Low Dose* 81 MG TAB.EC PO SCH (09:05)
[2017-05-30] MEDS: Gabapentin CAP(*) 300 MG PO SCH ×3 (09:05→21:05)
[2017-05-30] MEDS: amLODIPine TAB* 5 MG PO SCH (09:05)
[2017-05-30] MEDS: Losartan TAB* 25 MG PO SCH (09:05)
[2017-05-30] MEDS: CMCS: Pantoprazole TAB (NF) 40 MG TAB PO SCH (09:05)
[2017-05-30] MEDS: Clopidogrel TAB* 75 MG PO SCH (09:05)
[2017-05-30] MEDS: LUBIPROSTONE 8 MCG PO SCH ×2 (09:06→21:09)
[2017-05-30] MEDS: RANOLAZINE 1000 MG PO SCH ×2 (09:07→21:08)
[2017-05-30] MEDS: Mometasone/Formoter 200/5 MDI INH SCH ×2 (09:08→19:48)
[2017-05-30] MEDS: Insulin LISPRO* 1 UNITS UNIT SUBCUT SCH ×7 (09:26→21:11)
--- NOTE | 2017-05-30 15:51 | PN ---
Subjective Date of Service: 05/30/17 Interval History: Patient feels much better 4 L net negative UOP yesterday laid flat for 10 minutes, conversational on room air 02 sats maintain 95% no chest pain tele: sr Medications Active Medications: Acetaminophen (Tylenol Tab*) 650 mg PO Q6H PRN PRN Reason: pain/fever Last Admin: 05/29/17 12:15 Dose: 650 mg Albuterol (Ventolin 2.5 Mg/3 Ml Neb.Betty*) 2.5 mg INH Q4H PRN PRN Reason: SOB/WHEEZING Amlodipine Besylate (Norvasc Tab*) 10 mg PO DAILY [facility] Last Admin: 05/30/17 09:05 Dose: 10 mg Aspirin (Aspirin Ec Low Dose*) 81 mg PO DAILY [facility] Last Admin: 05/30/17 09:05 Dose: 81 mg Atorvastatin Calcium (Lipitor*) 40 mg PO BEDTIME [facility] PRN Reason: Protocol Last Admin: 05/29/17 21:25 Dose: 40 mg Bupropion HCl (Bupropion Xl*) 300 mg PO DAILY [facility] Last Admin: 05/30/17 09:05 Dose: 300 mg Clopidogrel Bisulfate (Plavix Tab*) 75 mg PO DAILY [facility] Last Admin: 05/30/17 09:05 Dose: 75 mg Dextrose (D50w Syringe 50 Ml*) 12.5 gm IV PUSH .FOR FS < 60 - SS PRN PRN Reason: FS < 60 Furosemide (Lasix Iv*) 40 mg IV DAILY@0900,1400 [facility] Last Admin: 05/30/17 12:54 Dose: 40 mg Gabapentin (Neurontin Cap(*)) 600 mg PO TID [facility] Last Admin: 05/30/17 12:49 Dose: 600 mg Heparin Sodium (Porcine) (Heparin Vial(*)) 5,000 units SUBCUT ONCE ONE Stop: 05/30/17 22:01 Hydralazine HCl (Apresoline Iv*) 5 mg IV SLOW PU Q6H PRN PRN Reason: SBP>180 Last Admin: 05/29/17 12:15 Dose: 5 mg Insulin Human Lispro (Humalog*) 0 units SUBCUT AC JB PRN Reason: Protocol Last Admin: 05/30/17 12:48 Dose: 4 unit Insulin Human Lispro (Humalog*) 0 units SUBCUT ACHS [facility] PRN Reason: Protocol Last Admin: 05/30/17 11:54 Dose: 6 units Insulin Human Lispro (Humalog*) 0 units SUBCUT .SEE PROTOCOL JB PRN Reason: Protocol Levothyroxine Sodium (Synthroid Tab*) 200 mcg PO 0600 [facility] Last Admin: 05/30/17 05:14 Dose: 200 mcg Losartan Potassium (Cozaar Tab*) 100 mg PO DAILY [facility] Last Admin: 05/30/17 09:05 Dose: 100 mg Lubiprostone (Amitiza (Nf)) 8 mcg PO Q12HR [facility] Last Admin: 05/30/17 09:06 Dose: 8 mcg Mometasone Furoate/Formoterol Fumar (Dulera 200/5 Mdi*) 2 puff INH BID [facility] PRN Reason: Protocol Last Admin: 05/30/17 09:08 Dose: 2 puff Pantoprazole Sodium (Protonix Tab (Nf)) 40 mg PO DAILY [facility] Last Admin: 05/30/17 09:05 Dose: 40 mg Ranolazine (Ranexa) 1,000 mg PO BID [facility] Last Admin: 05/30/17 09:07 Dose: 1,000 mg Objective Vital Signs: Temp Pulse Resp BP Pulse Ox 98.2 F 62 20 117/66 96 05/30/17 11:34 05/30/17 11:34 05/30/17 14:31 05/30/17 11:34 05/30/17 11:34 Oxygen Devices in Use Now: Nasal Cannula Appearance: obese, pleasant Neck: Trachea Midline, - - uncertain jvp Respiratory: Symmetrical Chest Expansion and Respiratory Effort, - - b/l basilar crackles Cardiovascular: RRR - distant Abdominal: NL Sounds; No Tenderness; No Distention Extremities: No Clubbing, Cyanosis Neurological: Alert and Oriented x 3 Laboratory Results: 05/29/17 05:45 05/30/17 05:00 INR (Anticoag Therapy) 0.92 (0.89-1.11) 05/29/17 01:33 APTT 49.8 seconds (26.0-36.3) H 05/29/17 01:33 Total Bilirubin 0.40 mg/dL (0.2-1.0) 05/29/17 01:33 AST 16 U/L (13-39) 05/29/17 01:33 ALT 17 U/L (7-52) 05/29/17 01:33 Alkaline Phosphatase 51 U/L (34-104) 05/29/17 01:33 CK-MB (CK-2) 1.8 ng/mL (0.6-6.3) 05/29/17 01:33 B-Natriuretic Peptide 206 pg/mL (-100) H 05/29/17 01:33 Total Protein 7.0 g/dL (6.4-8.9) 05/29/17 01:33 Albumin 3.9 g/dL (3.2-5.2) 05/29/17 01:33 Globulin 3.1 g/dL (2-4) 05/29/17 01:33 Albumin/Globulin Ratio 1.3 (1-3) 05/29/17 01:33 TSH 2.00 mcIU/mL (0.34-5.60) 05/29/17 01:33 05/29/17 05/29/17 01:33 05:45 Troponin I 0.02 0.01 Assessment/Plan HISTORY OF PRESENT ILLNESS: Mrs. Randhawa is a 71-year-old woman extensive atherosclerotic heart disease and multiple PCI and known collaterals, DM on insulin pump, HTN, obesity has had exertional dyspnea for months, had an episode of exertional syncope 2 months ago. She was admitted with new onset ADHF (diastolic HF) and junctional escape rhythm while on modest dose of 75 mg toprol. - I think patient will need a beta-nadya usp given her known residual obstructive CAD. The exertional syncope 2 months ago is concerning for bradycardia related symptoms. I think the junctional rhythm was probably accumulating to fluid accumulation. Her breathing status significantly improved and is stable enough to receive a permanent pacemaker tomorrow. She is on aspirin and plavix. I discontinued the SQ heparin prophylaxis after tonight. Dr. Allison will adjust the insulin infusion. Can continue with diuresis, she will need a loop diuretic in place of a thiazide at discharge. Discussed with Dr. Luke and Dr. Allison regarding pacemaker tomorrow Thank you for allowing me to participate in the cardiovascular care of this patient. Please do not hesitate to contact me with questions or concerns.
--- NOTE | 2017-05-30 17:25 | PN ---
Subjective Date of Service: 05/30/17 Interval History: HOSPITALIST PROGRESS NOTE Patient seen and examined at bedside. She feels better today. Breathing is easier, but still has dyspnea on exertion. When I saw her in AM she could not lay flat yet, but when evaluated by Dr. Mitchell in the afternoon, she was able to tolerate it well. Family History: Unchanged from Admission Social History: Unchanged from Admission Past Medical History: Unchanged from Admission Objective Active Medications: Acetaminophen (Tylenol Tab*) 650 mg PO Q6H PRN PRN Reason: pain/fever Last Admin: 05/29/17 12:15 Dose: 650 mg Albuterol (Ventolin 2.5 Mg/3 Ml Neb.Betty*) 2.5 mg INH Q4H PRN PRN Reason: SOB/WHEEZING Amlodipine Besylate (Norvasc Tab*) 10 mg PO DAILY [facility] Last Admin: 05/30/17 09:05 Dose: 10 mg Aspirin (Aspirin Ec Low Dose*) 81 mg PO DAILY [facility] Last Admin: 05/30/17 09:05 Dose: 81 mg Atorvastatin Calcium (Lipitor*) 40 mg PO BEDTIME JB PRN Reason: Protocol Last Admin: 05/29/17 21:25 Dose: 40 mg Bupropion HCl (Bupropion Xl*) 300 mg PO DAILY [facility] Last Admin: 05/30/17 09:05 Dose: 300 mg Clopidogrel Bisulfate (Plavix Tab*) 75 mg PO DAILY [facility] Last Admin: 05/30/17 09:05 Dose: 75 mg Dextrose (D50w Syringe 50 Ml*) 12.5 gm IV PUSH .FOR FS < 60 - SS PRN PRN Reason: FS < 60 Furosemide (Lasix Iv*) 40 mg IV DAILY@0900,1400 [facility] Last Admin: 05/30/17 12:54 Dose: 40 mg Gabapentin (Neurontin Cap(*)) 600 mg PO TID [facility] Last Admin: 05/30/17 12:49 Dose: 600 mg Heparin Sodium (Porcine) (Heparin Vial(*)) 5,000 units SUBCUT ONCE ONE Stop: 05/30/17 22:01 Hydralazine HCl (Apresoline Iv*) 5 mg IV SLOW PU Q6H PRN PRN Reason: SBP>180 Last Admin: 05/29/17 12:15 Dose: 5 mg Dextrose (D10w 1000 Ml Bag*) 1,000 mls @ 50 mls/hr IV PER RATE [facility] Insulin Human Lispro (Humalog*) 0 units SUBCUT AC JB PRN Reason: Protocol Last Admin: 05/30/17 12:48 Dose: 4 unit Insulin Human Lispro (Humalog*) 0 units SUBCUT ACHS JB PRN Reason: Protocol Last Admin: 05/30/17 16:56 Dose: 2 units Insulin Human Lispro (Humalog*) 0 units SUBCUT .SEE PROTOCOL JB PRN Reason: Protocol Levothyroxine Sodium (Synthroid Tab*) 200 mcg PO 0600 [facility] Last Admin: 05/30/17 05:14 Dose: 200 mcg Losartan Potassium (Cozaar Tab*) 100 mg PO DAILY JB Last Admin: 05/30/17 09:05 Dose: 100 mg Lubiprostone (Amitiza (Nf)) 8 mcg PO Q12HR [facility] Last Admin: 05/30/17 09:06 Dose: 8 mcg Mometasone Furoate/Formoterol Fumar (Dulera 200/5 Mdi*) 2 puff INH BID [facility] PRN Reason: Protocol Last Admin: 05/30/17 09:08 Dose: 2 puff Pantoprazole Sodium (Protonix Tab (Nf)) 40 mg PO DAILY [facility] Last Admin: 05/30/17 09:05 Dose: 40 mg Ranolazine (Ranexa) 1,000 mg PO BID [facility] Last Admin: 05/30/17 09:07 Dose: 1,000 mg Vital Signs 05/30/17 05/30/17 05/30/17 11:28 11:34 12:49 Temperature 98.2 F Pulse Rate 62 Respiratory 20 20 18 Rate Blood Pressure 117/66 (mmHg) O2 Sat by Pulse 96 Oximetry Oxygen Devices in Use Now: Nasal Cannula Appearance: Pleasant elderly lady sitting up in bed in [facility]. Eyes: No Scleral Icterus Ears/Nose/Mouth/Throat: Mucous Membranes Moist Neck: Trachea Midline Respiratory: Symmetrical Chest Expansion and Respiratory Effort, - - BS+ bilaterally with bibasilar crackles Cardiovascular: RRR - Normal S1 and S2 Abdominal: NL Sounds; No Tenderness; No Distention Extremities: - - Trace bilateral LE edema Neurological: Alert and Oriented x 3, NL Muscle Strength and Tone Lines/Tubes/Other Access: Clean, Dry and Intact Peripheral IV Nutrition: Taking PO's Result Diagrams: 05/29/17 05:45 05/30/17 05:00 Assess/Plan/Problems-Billing Assessment: Mrs. Randhawa is a 71yo F with PMH of CAD s/p 14 stents (last one in January 2016) , HLD, HTN, diastolic CHF, type 2 DM, thyroid CA s/p thyroidectomy with post surgical hypothyroidism, GERD, depression, obesity, who presented to ED with c/ o dyspnea, found to have CHF exacerbation and significant bradycardia. - Patient Problems (1) Acute diastolic CHF (congestive heart failure) Comment: - Echo shows EF 55-60%, mild , mild MR. - Continue diuresis with Furosemide. - Monitor I/Os and daily weights. - Dietary education. (2) Bradycardia Comment: - There was concern for junctional bradycardia on admission and she's now in sinus bradycardia. - Metoprolol on hold, but with her h/o significant CAD with 14 stents and episodes of "heart flopping around", she'll need beta-blockers again. - Continue to monitor on Telemetry. - D/w Dr. Mitchell - since she can now lay flat, will plan for pacemaker placement tomorrow. (3) CAD (coronary artery disease) Comment: - Continue Aspirin, Plavix, and Atorvastatin. (4) Diabetes Comment: - Continue insulin pump with current settings and cover with Lispro SS. - A1c is 8.5. - As she will be NPO after MN, I discussed with Dr. Pisano - his recommendation is to continue her current insulin pump settings, start D10W at 50ml/h at midnight , and check FS q4h starting at midnight. (5) HTN (hypertension) Comment: - Better controlled. - Continue Losartan, Amlodipine and Hydralazine PRN. (6) DVT prophylaxis Comment: - SQ heparin on hold tonight for procedure tomorrow. - Continue SCDs. (7) Full code status Status and Disposition: Inpatient.
[2017-05-30] MEDS: Atorvastatin* 40 MG TAB PO SCH (21:05)
[2017-05-30] MEDS ORDERED: Heparin VIAL(*) 5000 UNITS/ML VIAL (FIVE THOUSAND) SUBCUT ONE (22:00)
[2017-05-30] MEDS ORDERED: D10W 1000 ML BAG* 1,000 ML IV SCH (23:59)
[2017-05-31] MEDS ORDERED: Insulin LISPRO* FOR INSULIN PUMP SUBCUT SCH
[2017-05-31] MEDS ORDERED: D5W 1000 ML BAG* 1,000 ML IV SCH (05:00)
[2017-05-31 05:35] LABS: EGFR African American 69.9 (>60); EGFR Non-African American 54.3 (>60); Potassium 3.9 mmol/L (3.5-5.0)
[2017-05-31] MEDS: Levothyroxine TAB* 100 MCG TAB PO SCH (05:50)
[2017-05-31] MEDS ORDERED: NS 0.9% 1000 ML* 1,000 ML IV SCH (07:00)
[2017-05-31] MEDS: Insulin LISPRO* 1 UNITS UNIT SUBCUT SCH ×7 (07:45→22:32)
[2017-05-31] MEDS: Mometasone/Formoter 200/5 MDI INH SCH ×2 (08:27→19:51)
[2017-05-31] MEDS: Losartan TAB* 25 MG PO SCH (11:13)
[2017-05-31] MEDS: CMCS: Pantoprazole TAB (NF) 40 MG TAB PO SCH (11:13)
[2017-05-31] MEDS: Aspirin EC Low Dose* 81 MG TAB.EC PO SCH (11:13)
[2017-05-31] MEDS: Gabapentin CAP(*) 300 MG PO SCH ×3 (11:13→21:21)
[2017-05-31] MEDS: RANOLAZINE 1000 MG PO SCH ×2 (11:14→21:22)
[2017-05-31] MEDS: LUBIPROSTONE 8 MCG PO SCH ×2 (11:14→21:23)
[2017-05-31] MEDS: BuPROPion XL* 300 MG TAB.XL PO SCH (11:14)
[2017-05-31] MEDS: amLODIPine TAB* 5 MG PO SCH (11:14)
[2017-05-31] MEDS: Clopidogrel TAB* 75 MG PO SCH (12:07)
[2017-05-31] MEDS: Furosemide IV* 10 MG/ML VIAL (40 MG) IV SCH ×2 (12:07→14:59)
[2017-05-31] MEDS ORDERED: Clindamycin 900 MG IVPREMIX(* 900 MG/50 ML SDV IV ONE (14:45)
[2017-05-31] MEDS ORDERED: Midazolam* 1 MG/ML 5 ML VIAL (5 MG) ONE ×2 (15:36→16:59)
[2017-05-31] MEDS ORDERED: fentaNYL* 50 MCG/ML 2 ML VIAL (100 MCG VIAL) ONE (15:36)
[2017-05-31] MEDS ORDERED: Iohexol 300 (CONTRAST) 10 ML SDV ONE (15:37)
[2017-05-31] MEDS ORDERED: Lidocaine 1% INJ* 10 MG/ML 30 ML SDV ONE ×2 (15:37→16:32)
[2017-05-31] MEDS ORDERED: Naloxone* 0.4 MG/ML 1 ML VIAL ONE (15:38)
[2017-05-31] MEDS ORDERED: Flumazenil* 0.1 MG/ML 5 ML MDV ONE (15:38)
--- NOTE | 2017-05-31 16:03 | PN ---
Subjective Date of Service: 05/31/17 Interval History: HOSPITALIST PROGRESS NOTE Patient seen and examined at bedside. She feels much better today. Was able to lay flat to sleep, ambulating around the unit without dyspnea. Denies CP or palpitations. Family History: Unchanged from Admission Social History: Unchanged from Admission Past Medical History: Unchanged from Admission Objective Active Medications: Acetaminophen (Tylenol Tab*) 650 mg PO Q6H PRN PRN Reason: pain/fever Last Admin: 05/29/17 12:15 Dose: 650 mg Albuterol (Ventolin 2.5 Mg/3 Ml Neb.Betty*) 2.5 mg INH Q4H PRN PRN Reason: SOB/WHEEZING Amlodipine Besylate (Norvasc Tab*) 10 mg PO DAILY [facility] Last Admin: 05/31/17 11:14 Dose: 10 mg Aspirin (Aspirin Ec Low Dose*) 81 mg PO DAILY [facility] Last Admin: 05/31/17 11:13 Dose: 81 mg Atorvastatin Calcium (Lipitor*) 40 mg PO BEDTIME JB PRN Reason: Protocol Last Admin: 05/30/17 21:05 Dose: 40 mg Bupropion HCl (Bupropion Xl*) 300 mg PO DAILY [facility] Last Admin: 05/31/17 11:14 Dose: 300 mg Clopidogrel Bisulfate (Plavix Tab*) 75 mg PO DAILY [facility] Last Admin: 05/31/17 12:07 Dose: Not Given Dextrose (D50w Syringe 50 Ml*) 12.5 gm IV PUSH .FOR FS < 60 - SS PRN PRN Reason: FS < 60 Furosemide (Lasix Iv*) 40 mg IV DAILY@0900,1400 [facility] Last Admin: 05/31/17 14:59 Dose: Not Given Gabapentin (Neurontin Cap(*)) 600 mg PO TID [facility] Last Admin: 05/31/17 13:59 Dose: 600 mg Hydralazine HCl (Apresoline Iv*) 5 mg IV SLOW PU Q6H PRN PRN Reason: SBP>180 Last Admin: 05/29/17 12:15 Dose: 5 mg Dextrose (D5w 1000 Ml Bag*) 1,000 mls @ 50 mls/hr IV PER RATE [facility] Last Admin: 05/31/17 04:50 Dose: 50 mls/hr Insulin Human Lispro (Humalog*) 0 units SUBCUT AC JB PRN Reason: Protocol Last Admin: 05/31/17 13:12 Dose: Not Given Insulin Human Lispro (Humalog*) 0 units SUBCUT ACHS JB PRN Reason: Protocol Last Admin: 05/31/17 13:08 Dose: 1.5 units Insulin Human Lispro (Humalog*) 0 units SUBCUT .SEE PROTOCOL JB PRN Reason: Protocol Levothyroxine Sodium (Synthroid Tab*) 200 mcg PO 0600 JB Last Admin: 05/31/17 05:50 Dose: 200 mcg Losartan Potassium (Cozaar Tab*) 100 mg PO DAILY [facility] Last Admin: 05/31/17 11:13 Dose: 100 mg Lubiprostone (Amitiza (Nf)) 8 mcg PO Q12HR JB Last Admin: 05/31/17 11:14 Dose: 8 mcg Mometasone Furoate/Formoterol Fumar (Dulera 200/5 Mdi*) 2 puff INH BID JB PRN Reason: Protocol Last Admin: 05/31/17 08:27 Dose: 2 puff Pantoprazole Sodium (Protonix Tab (Nf)) 40 mg PO DAILY [facility] Last Admin: 05/31/17 11:13 Dose: 40 mg Ranolazine (Ranexa) 1,000 mg PO BID [facility] Last Admin: 05/31/17 11:14 Dose: 1,000 mg Vital Signs 05/31/17 05/31/17 05/31/17 11:20 11:28 11:30 Temperature 97.6 F Pulse Rate 67 Respiratory 4 16 16 Rate Blood Pressure 131/73 (mmHg) O2 Sat by Pulse 94 Oximetry Oxygen Devices in Use Now: None Appearance: Pleasant elderly lady sitting up in bed in [facility]. Eyes: No Scleral Icterus Ears/Nose/Mouth/Throat: Mucous Membranes Moist Neck: Trachea Midline Respiratory: Symmetrical Chest Expansion and Respiratory Effort, - - BS+ bilaterally with minimal bibasilar rales Cardiovascular: RRR - Normal S1 and S2 Abdominal: NL Sounds; No Tenderness; No Distention Extremities: No Edema Neurological: Alert and Oriented x 3, NL Muscle Strength and Tone Lines/Tubes/Other Access: Clean, Dry and Intact Peripheral IV Nutrition: - - NPO Result Diagrams: 05/29/17 05:45 05/31/17 05:04 Assess/Plan/Problems-Billing Assessment: Mrs. Randhawa is a 71yo F with PMH of CAD s/p 14 stents (last one in January 2016) , HLD, HTN, diastolic CHF, type 2 DM, thyroid CA s/p thyroidectomy with post surgical hypothyroidism, GERD, depression, obesity, who presented to ED with c/ o dyspnea, found to have CHF exacerbation and significant bradycardia. - Patient Problems (1) Acute diastolic CHF (congestive heart failure) Comment: - Echo shows EF 55-60%, mild , mild MR. - Responded well to diuresis with Furosemide - will d/c IV for now, and resume PO after pacer placement. - Monitor I/Os and daily weights. - Dietary education. (2) Bradycardia Comment: - There was concern for junctional bradycardia on admission and she's now in sinus bradycardia. - Metoprolol on hold, but with her h/o significant CAD with 14 stents and episodes of "heart flopping around", she'll need beta-blockers again. - For pacer placement today. (3) CAD (coronary artery disease) Comment: - Continue Aspirin, Plavix, and Atorvastatin. (4) Diabetes Comment: - Continue insulin pump with current settings and cover with Lispro SS. - A1c is 8.5. (5) HTN (hypertension) Comment: - Better controlled. - Continue Losartan, Amlodipine and Hydralazine PRN. (6) DVT prophylaxis Comment: - SQ heparin on hold for now for procedure. - Continue SCDs. (7) Full code status Status and Disposition: Inpatient.
[2017-05-31] MEDS ORDERED: diPHENhydraMINE IV* 50 MG/ML 1 ml VIAL (BENADRYL) ONE (16:52)
[2017-05-31] MEDS ORDERED: Acetaminophen TAB* 325 MG PO PRN (17:55)
--- NOTE | 2017-05-31 19:03 | RAD ---
HISTORY: Status post device implant COMPARISONS: May 29, 2017 VIEWS:1: Single frontal portable view of the chest at 6:45 PM FINDINGS: LINES AND TUBES: A left-sided pacemaker is noted. Leads are intact. CARDIOMEDIASTINAL SILHOUETTE: The cardiomediastinal silhouette is normal for portable technique. PLEURA: The costophrenic angles are sharp. No pleural abnormalities are noted. There is no appreciable pneumothorax. LUNG PARENCHYMA: The lungs are clear. ABDOMEN: The upper abdomen is clear. There is no subphrenic gas. BONES AND SOFT TISSUES: No bone or soft tissue abnormalities are noted. IMPRESSION: STATUS POST PACEMAKER PLACEMENT. NO ACTIVE CARDIOPULMONARY DISEASE.
--- NOTE | 2017-05-31 19:20 | PN ---
Subjective Date of Service: 05/31/17 - CC: SOB Interval History: Breathing continues to improve. Able to lie flat. I initially saw the patient at 7:45 AM, discussed risks and benefits and details of pacemaker implantation. Pt and amenable to proceding. The patient is now s/p dual chamber pacer implant, no complications. Medications Active Medications: Acetaminophen (Tylenol Tab*) 650 mg PO Q4H PRN PRN Reason: PAIN Albuterol (Ventolin 2.5 Mg/3 Ml Neb.Betty*) 2.5 mg INH Q4H PRN PRN Reason: SOB/WHEEZING Amlodipine Besylate (Norvasc Tab*) 10 mg PO DAILY [facility] Last Admin: 05/31/17 11:14 Dose: 10 mg Aspirin (Aspirin Ec Low Dose*) 81 mg PO DAILY [facility] Last Admin: 05/31/17 11:13 Dose: 81 mg Atorvastatin Calcium (Lipitor*) 40 mg PO BEDTIME [facility] PRN Reason: Protocol Last Admin: 05/30/17 21:05 Dose: 40 mg Bupropion HCl (Bupropion Xl*) 300 mg PO DAILY [facility] Last Admin: 05/31/17 11:14 Dose: 300 mg Dextrose (D50w Syringe 50 Ml*) 12.5 gm IV PUSH .FOR FS < 60 - SS PRN PRN Reason: FS < 60 Furosemide (Lasix Iv*) 40 mg IV DAILY@0900,1400 [facility] Last Admin: 05/31/17 14:59 Dose: Not Given Gabapentin (Neurontin Cap(*)) 600 mg PO TID [facility] Last Admin: 05/31/17 13:59 Dose: 600 mg Hydralazine HCl (Apresoline Iv*) 5 mg IV SLOW PU Q6H PRN PRN Reason: SBP>180 Last Admin: 05/29/17 12:15 Dose: 5 mg Dextrose (D5w 1000 Ml Bag*) 1,000 mls @ 50 mls/hr IV PER RATE [facility] Last Admin: 05/31/17 04:50 Dose: 50 mls/hr Clindamycin HCl/Dextrose (Cleocin 600 Mg Ivpremix(*) Sdv) 600 mg in 50 mls @ 100 mls/hr IV Q6H [facility] Insulin Human Lispro (Humalog*) 0 units SUBCUT AC JB PRN Reason: Protocol Last Admin: 05/31/17 13:12 Dose: Not Given Insulin Human Lispro (Humalog*) 0 units SUBCUT ACHS JB PRN Reason: Protocol Last Admin: 05/31/17 13:08 Dose: 1.5 units Insulin Human Lispro (Humalog*) 0 units SUBCUT .SEE PROTOCOL JB PRN Reason: Protocol Levothyroxine Sodium (Synthroid Tab*) 200 mcg PO 0600 [facility] Last Admin: 05/31/17 05:50 Dose: 200 mcg Losartan Potassium (Cozaar Tab*) 100 mg PO DAILY [facility] Last Admin: 05/31/17 11:13 Dose: 100 mg Lubiprostone (Amitiza (Nf)) 8 mcg PO Q12HR [facility] Last Admin: 05/31/17 11:14 Dose: 8 mcg Mometasone Furoate/Formoterol Fumar (Dulera 200/5 Mdi*) 2 puff INH BID [facility] PRN Reason: Protocol Last Admin: 05/31/17 08:27 Dose: 2 puff Pantoprazole Sodium (Protonix Tab (Nf)) 40 mg PO DAILY [facility] Last Admin: 05/31/17 11:13 Dose: 40 mg Ranolazine (Ranexa) 1,000 mg PO BID [facility] Last Admin: 05/31/17 11:14 Dose: 1,000 mg Objective Vital Signs: Temp Pulse Resp BP Pulse Ox 97.4 F 64 16 136/58 92 05/31/17 18:29 05/31/17 18:29 05/31/17 18:29 05/31/17 18:29 05/31/17 18:29 Oxygen Devices in Use Now: Nasal Cannula Appearance: obese, pleasant, lying, comfortable. Eyes: No Scleral Icterus, PERRLA Ears/Nose/Mouth/Throat: Clear Oropharnyx, Mucous Membranes Moist Neck: NL Appearance and Movements; NL JVP, Trachea Midline, - Respiratory: Symmetrical Chest Expansion and Respiratory Effort, Clear to Auscultation, - - b/l basilar crackles Cardiovascular: RRR - distant, no murmers appreciated Abdominal: NL Sounds; No Tenderness; No Distention Extremities: No Clubbing, Cyanosis Skin: No Rash or Ulcers Neurological: Alert and Oriented x 3 Lines/Tubes/Other Access: Clean, Dry and Intact Peripheral IV Laboratory Results: 05/31/17 05:04 INR (Anticoag Therapy) 0.92 (0.89-1.11) 05/29/17 01:33 APTT 49.8 seconds (26.0-36.3) H 05/29/17 01:33 Total Bilirubin 0.40 mg/dL (0.2-1.0) 05/29/17 01:33 AST 16 U/L (13-39) 05/29/17 01:33 ALT 17 U/L (7-52) 05/29/17 01:33 Alkaline Phosphatase 51 U/L (34-104) 05/29/17 01:33 CK-MB (CK-2) 1.8 ng/mL (0.6-6.3) 05/29/17 01:33 B-Natriuretic Peptide 206 pg/mL (-100) H 05/29/17 01:33 Total Protein 7.0 g/dL (6.4-8.9) 05/29/17 01:33 Albumin 3.9 g/dL (3.2-5.2) 05/29/17 01:33 Globulin 3.1 g/dL (2-4) 05/29/17 01:33 Albumin/Globulin Ratio 1.3 (1-3) 05/29/17 01:33 TSH 2.00 mcIU/mL (0.34-5.60) 05/29/17 01:33 Diagnostic Imaging: CXR post implant: good A and V lead placement, no pneumothorax. EKG Data: A pacing. Assessment/Plan HISTORY OF PRESENT ILLNESS: Mrs. Randhawa is a 71-year-old woman extensive atherosclerotic heart disease and multiple PCI and known collaterals, DM on insulin pump, HTN, obesity admitted for progressive SOB found in both CHF and junctional bradycardia. Beta nadya initially held, aggressive diereses and now PO dual chamber pacemaker implantation. -Will resume metoprolol. -Will likely need out patient lasix (to replace HCTZ), but with hyponatremia and at or close to euvolemic can decrease dose.
[2017-05-31 20:15] LABS: Hematocrit 35 % (35-47); Hemoglobin 11.3 g/dl (12.0-16.0); Mean Corpuscular HGB Conc 32 g/dl (31-36); Mean Corpuscular Hemoglobin 30 pg (27-31); Mean Corpuscular Volume 94 fL (80-97); Mean Platelet Volume 8 um3 (7.4-10.4); Red Blood Count 3.75 10^6/ul (4.0-5.4); Red Cell Distribution Width 16 % (10.5-15)
[2017-05-31 20:29] LABS: EGFR Non-African American 48.2 (>60)
[2017-05-31] MEDS: Clindamycin 600 MG IVPREMIX(* 600 MG/50 ML SDV IV SCH (21:11)
[2017-05-31] MEDS: Atorvastatin* 40 MG TAB PO SCH (21:21)
[2017-05-31] MEDS: Heparin VIAL(*) 5000 UNITS/ML VIAL (FIVE THOUSAND) SUBCUT SCH (21:25)
[2017-06-01] MEDS: Clindamycin 600 MG IVPREMIX(* 600 MG/50 ML SDV IV SCH ×3 (02:00→15:46)
[2017-06-01 04:58] LABS: Calcium 8.9 mg/dL (8.6-10.3); EGFR African American 69.9 (>60); EGFR Non-African American 54.3 (>60)
[2017-06-01 05:28] LABS: Potassium 4.1 mmol/L (3.5-5.0)
[2017-06-01] MEDS: Levothyroxine TAB* 100 MCG TAB PO SCH (05:45)
--- NOTE | 2017-06-01 08:13 | RAD ---
INDICATION: Status post pacemaker placement. COMPARISON: Comparison is made with prior chest x-ray studies from May 29, 2017 and May 31, 2017. TECHNIQUE: Dual-energy PA and lateral views of the chest were obtained. FINDINGS: There is a dual-chamber transvenous pacemaker present. The heart is within normal limits in size. Mediastinal and hilar contours appear to be within normal limits. The lungs are clear. No pleural effusion or pneumothorax is seen. There is flattening of the diaphragms suggestive of chronic obstructive pulmonary disease. IMPRESSION: STATUS POST CARDIAC PACEMAKER PLACEMENT, NO EVIDENCE FOR ACUTE FINDING.
[2017-06-01] MEDS: Insulin LISPRO* 1 UNITS UNIT SUBCUT SCH ×4 (08:15→13:06)
[2017-06-01] MEDS: Heparin VIAL(*) 5000 UNITS/ML VIAL (FIVE THOUSAND) SUBCUT SCH (08:16)
[2017-06-01] MEDS: Losartan TAB* 25 MG PO SCH (08:16)
[2017-06-01] MEDS: Gabapentin CAP(*) 300 MG PO SCH ×2 (08:16→15:46)
[2017-06-01] MEDS: Aspirin EC Low Dose* 81 MG TAB.EC PO SCH (08:17)
[2017-06-01] MEDS: amLODIPine TAB* 5 MG PO SCH (08:17)
[2017-06-01] MEDS: Mometasone/Formoter 200/5 MDI INH SCH (08:31)
[2017-06-01] MEDS ORDERED: Metoprolol Succinate XL TAB* 25 MG PO SCH (09:00)
[2017-06-01 09:03] LABS: Magnesium 2.1 mg/dL (1.9-2.7)
[2017-06-01] MEDS: CMCS: Pantoprazole TAB (NF) 40 MG TAB PO SCH (09:13)
[2017-06-01] MEDS: LUBIPROSTONE 8 MCG PO SCH (09:13)
[2017-06-01] MEDS: BuPROPion XL* 300 MG TAB.XL PO SCH (09:13)
[2017-06-01] MEDS: RANOLAZINE 1000 MG PO SCH (09:17)
[2017-06-01] MEDS ORDERED: Bisacodyl EC TAB* 5 MG PO SCH (10:00)
[2017-06-01] MEDS ORDERED: Polyethylene Glycol 3350* 17 GM PACKET PO SCH (10:00)
[2017-06-01 12:07] VITALS: BP 132/52
--- NOTE | 2017-06-01 12:23 | PN ---
Subjective Date of Service: 06/01/17 - CC: SOB Interval History: Breathing continues to improve, she loves her pacemaker. No new c/o. Lot's of pacemaker related questions. Pt seen with her , daughter Eileen and niece. Medications Active Medications: Acetaminophen (Tylenol Tab*) 650 mg PO Q4H PRN PRN Reason: PAIN Last Admin: 06/01/17 05:45 Dose: 650 mg Albuterol (Ventolin 2.5 Mg/3 Ml Neb.Betty*) 2.5 mg INH Q4H PRN PRN Reason: SOB/WHEEZING Amlodipine Besylate (Norvasc Tab*) 10 mg PO DAILY [facility] Last Admin: 06/01/17 08:17 Dose: 10 mg Aspirin (Aspirin Ec Low Dose*) 81 mg PO DAILY [facility] Last Admin: 06/01/17 08:17 Dose: 81 mg Atorvastatin Calcium (Lipitor*) 40 mg PO BEDTIME JB PRN Reason: Protocol Last Admin: 05/31/17 21:21 Dose: 40 mg Bisacodyl (Dulcolax Ec Tab*) 10 mg PO DAILY [facility] Last Admin: 06/01/17 10:53 Dose: 10 mg Bupropion HCl (Bupropion Xl*) 300 mg PO DAILY [facility] Last Admin: 06/01/17 09:13 Dose: 300 mg Dextrose (D50w Syringe 50 Ml*) 12.5 gm IV PUSH .FOR FS < 60 - SS PRN PRN Reason: FS < 60 Gabapentin (Neurontin Cap(*)) 600 mg PO TID [facility] Last Admin: 06/01/17 08:16 Dose: 600 mg Heparin Sodium (Porcine) (Heparin Vial(*)) 5,000 units SUBCUT Q12HR [facility] Last Admin: 06/01/17 08:16 Dose: 5,000 units Hydralazine HCl (Apresoline Iv*) 5 mg IV SLOW PU Q6H PRN PRN Reason: SBP>180 Last Admin: 05/29/17 12:15 Dose: 5 mg Clindamycin HCl/Dextrose (Cleocin 600 Mg Ivpremix(*) Sdv) 600 mg in 50 mls @ 100 mls/hr IV Q6H [facility] Last Admin: 06/01/17 08:14 Dose: 100 mls/hr Insulin Human Lispro (Humalog*) 0 units SUBCUT AC JB PRN Reason: Protocol Last Admin: 06/01/17 09:12 Dose: 5 unit Insulin Human Lispro (Humalog*) 0 units SUBCUT ACHS JB PRN Reason: Protocol Last Admin: 06/01/17 08:15 Dose: 3 units Insulin Human Lispro (Humalog*) 0 units SUBCUT .SEE PROTOCOL JB PRN Reason: Protocol Levothyroxine Sodium (Synthroid Tab*) 200 mcg PO 0600 [facility] Last Admin: 06/01/17 05:45 Dose: 200 mcg Losartan Potassium (Cozaar Tab*) 100 mg PO DAILY [facility] Last Admin: 06/01/17 08:16 Dose: 100 mg Lubiprostone (Amitiza (Nf)) 8 mcg PO Q12HR [facility] Last Admin: 06/01/17 09:13 Dose: 8 mcg Metoprolol Succinate (Toprol Xl Tab*) 25 mg PO DAILY [facility] Last Admin: 06/01/17 08:17 Dose: 25 mg Mometasone Furoate/Formoterol Fumar (Dulera 200/5 Mdi*) 2 puff INH BID [facility] PRN Reason: Protocol Last Admin: 06/01/17 08:31 Dose: 2 puff Pantoprazole Sodium (Protonix Tab (Nf)) 40 mg PO DAILY [facility] Last Admin: 06/01/17 09:13 Dose: 40 mg Polyethylene Glycol/Electrolytes (Miralax*) 17 gm PO DAILY [facility] Last Admin: 06/01/17 10:53 Dose: 17 gm Ranolazine (Ranexa) 1,000 mg PO BID [facility] Last Admin: 06/01/17 09:17 Dose: Not Given Objective Vital Signs: Temp Pulse Resp BP Pulse Ox 97.4 F 62 14 132/52 97 06/01/17 11:36 06/01/17 11:36 06/01/17 12:00 06/01/17 11:36 06/01/17 11:36 Oxygen Devices in Use Now: Nasal Cannula Appearance: obese, pleasant, lying, comfortable. Eyes: No Scleral Icterus, PERRLA Ears/Nose/Mouth/Throat: Clear Oropharnyx, Mucous Membranes Moist Neck: NL Appearance and Movements; NL JVP, Trachea Midline, - Respiratory: Symmetrical Chest Expansion and Respiratory Effort, - - b/l basilar crackles, improved. Cardiovascular: RRR - distant, no murmers appreciated Abdominal: NL Sounds; No Tenderness; No Distention Extremities: No Clubbing, Cyanosis Skin: No Rash or Ulcers, - - Incision Left subclavian fossa no hematoma, miminal eccymosis, no evidence of infection. Neurological: Alert and Oriented x 3 Lines/Tubes/Other Access: Clean, Dry and Intact Peripheral IV Laboratory Results: 05/31/17 19:44 06/01/17 04:15 INR (Anticoag Therapy) 1.03 (0.89-1.11) 05/31/17 19:44 APTT 46.9 seconds (26.0-36.3) H 05/31/17 19:44 Total Bilirubin 0.40 mg/dL (0.2-1.0) 05/29/17 01:33 AST 16 U/L (13-39) 05/29/17 01:33 ALT 17 U/L (7-52) 05/29/17 01:33 Alkaline Phosphatase 51 U/L (34-104) 05/29/17 01:33 CK-MB (CK-2) 1.8 ng/mL (0.6-6.3) 05/29/17 01:33 B-Natriuretic Peptide 206 pg/mL (-100) H 05/29/17 01:33 Total Protein 7.0 g/dL (6.4-8.9) 05/29/17 01:33 Albumin 3.9 g/dL (3.2-5.2) 05/29/17 01:33 Globulin 3.1 g/dL (2-4) 05/29/17 01:33 Albumin/Globulin Ratio 1.3 (1-3) 05/29/17 01:33 TSH 2.00 mcIU/mL (0.34-5.60) 05/29/17 01:33 Diagnostic Imaging: CXR post implant 06/01/17: good A and V lead placement, no pneumothorax. EKG Data: Monitor: A pace, [place] QRS alternating with SVT and V tracking. Pacemaker interogation: A sense: 1.6 mv Apace: 1.125 V @ 0.4 ms A impedance: 380 Oms. V sense: 12.4 mF V pace: 0.625V @ 0.4 ms V impedence: 741 Ohms Assessment/Plan HISTORY OF PRESENT ILLNESS: Mrs. Randhawa is a 71-year-old woman extensive atherosclerotic heart disease and multiple PCI and known collaterals, DM on insulin pump, HTN, obesity admitted for progressive SOB found in both CHF and junctional bradycardia. Beta nadya initially held, aggressive diereses and now PO dual chamber pacemaker implantation. Metoprolol resumed at lower dose, SVT noted. -Pacer site, CXR and thresholds good. Recommendations: OK to discharge from a cardiac standpoint. Increase metoprolol XL to 50 mg/day Replace PO lasix for PO HCTZ as out patient. Daily outpatient weights. Needs wound check with me next week. 4 days of oral Clindamycin. Resume Plavix Saturday. ASA and other usual meds OK.
--- NOTE | 2017-06-02 07:34 | DS ---
CC: Dr. Sade Gordon; Dr. Perez; Dr. Luke DISCHARGE SUMMARY: DATE OF ADMISSION: 05/29/17 DATE OF DISCHARGE: 06/01/17 PRIMARY CARE PROVIDER: Dr. Sade Gordon. DEVELOPMENT GEOLOGIST: Dr. Perez. CONSULTING DEVELOPMENT GEOLOGIST: Dr. Luke. DISCHARGE DIAGNOSES: 1. Acute diastolic congestive heart failure exacerbation. 2. Junctional bradycardia, status post pacemaker placement. SECONDARY DIAGNOSES: 1. Coronary artery disease, status post 14 stents. 2. Hyperlipidemia. 3. Hypertension. 4. Diastolic congestive heart failure. 5. Type 2 diabetes. 6. Thyroid carcinoma, status post thyroidectomy with postsurgical hypothyroidism. 7. Gastroesophageal reflux disease. 8. Depression. 9. Obesity with a BMI of 38. MEDICATION LIST: 1. Lispro insulin, on insulin pump with current settings of 3.5 units an hour from midnight to 11 a .m., 2.5 units an hour from 11 a.m. to 3 p.m., and 2.75 units an hour from 3 p.m. to midnight, and t o continue correctional insulin with carb counting like she was doing before. 2. Isosorbide mononitrate 60 mg p.o. daily. 3. Symbicort 160/4.5 one puff inhaled b.i.d. 4. Bupropion XL 300 mg p.o. daily. 5. Cholecalciferol 2000 units p.o. daily. 6. Lovastatin 80 mg p.o. at bedtime. 7. Nexium 40 mg p.o. daily. 8. Januvia 100 mg p.o. daily. 9. Metoprolol succinate 50 mg p.o. daily. 10. Gabapentin 600 mg p.o. t.i.d. 11. Benzonatate 200 mg p.o. t.i.d. as needed for cough. 12. Losartan 100 mg p.o. daily. 13. Nitroglycerin 0.4 mg sublingual q.5 minutes p.r.n. chest pain. 14. Amitiza 8 mcg p.o. q.12h. 15. Levothyroxine 200 mcg p.o. daily. 16. Metformin 500 mg p.o. b.i.d. 17. Ranexa 1000 mg p.o. b.i.d. 18. Aspirin 81 mg p.o. daily. 19. Plavix 75 mg p.o. daily to be resumed on June 03, 2017. NEW MEDICATIONS: 1. Amlodipine 5 mg p.o. daily. 2. Potassium chloride 20 mEq p.o. daily. 3. Furosemide 20 mg p.o. daily. 4. Clindamycin 300 mg p.o. q.6h. for 4 more days. 5. Hydrochlorothiazide was discontinued. HOSPITAL COURSE: Ms. Randhawa is a 71-year-old lady with a past medical history as stated above, evelin t presented to the emergency room with complaints of a couple of months of progressive exertional dy spnea that had progressed to orthopnea and PND for a couple of days prior to admission. The shortne ss of breath became more severe on the day she presented to the hospital, and she was found to be br adycardic and in the emergency room, there was concern for junctional bradycardia. For more details of her presentation, I refer you to her history and physical. The patient was admitted to the intensive care unit and she underwent a transthoracic echocardiogram that showed mild concentric LVH with normal left ventricular systolic function, ejection fraction o f 55% to 60% with abnormal left ventricular diastolic filling observed consistent with impaired rela xation. There was mild aortic stenosis, moderate mitral calcification, with mild mitral regurgitati on, and mild mitral stenosis. The patient was diuresed with furosemide with a good response. Initially, the plan was to continue diuresis and probably pursue a pacemaker as outpatient as at [facility] point, the patient was not able to lay flat, but with further diuresis, she was able to be release d from supplemental oxygen and able to lay flat for a procedure. She was seen in consultation by Dr. Luke and in summary she felt that the patient was 71-year-old woman presenting with a 2-month history of progressive dyspnea on exertion which escalated over the last 48 hours with orthopnea and PND. In the emergency room, she was found to have evidence of sick sinus syndrome with intermittent junctional beats and this has resolved with discontinuation of bet a- nadya. The patient on exam had evidence of congestive heart failure with some clinical improve ment with diuresis. Confounding factors include renal insufficiency. She has evidence of diastolic dysfunction and left-sided valvular disease on echo. Dr. Luke felt that congestive heart failur e was the patient's primary problem and it is diastolic related to left ventricular diastolic dysfun ction, valvular heart, and renal insufficiency. She recommended converting her outpatient hydrochlo rothiazide to oral Lasix with potassium supplementation. Dietary education was fundamental to the anish collins and her . The sick sinus syndrome was likely contributing to her symptoms, but Dr. Luke felt it was not the full answer, especially considering she remained dyspneic despite being in sinus rhythm. It was f elt after discussion with Dr. Perez that the patient would need beta nadya for protection for her extensive atherosclerotic heart disease, so Dr. Luke felt that ultimately the patient would bene fit from a pacemaker implantation. Initially, she did not think this needed to be done urgently jannette ecially considering her normal troponins and lack of use of nitroglycerin over the last couple of mo nths. The patient continued to improve and then the plan changed to have a pacemaker placed as inpatient a nd this was performed on May [address] Luke. The patient underwent a dual-chamber pacemaker i mplantation and did well after the procedure. Dr. Luke recommended resuming her metoprolol. On telemetry, there was concern for possible episode of V-tach, but in reviewing the rhythm with Dr. Glynn okeefe, the impression was that she had SVT with ventricular pacing. She also recommended transition ing from hydrochlorothiazide to p.o. Lasix as outpatient and to receive 4 more days of clindamycin. The patient will be discharged home today. She will see Dr. Luke next week for pacemaker check a nd then she will resume her followup with Dr. Perez. PHYSICAL EXAMINATION: Vital Signs: Temperature 97.4, heart rate is 65, respiratory rate 16, oxygen saturation 95% on room air, blood pressure is 132/52. General: The patient is a pleasant, obese la dy, sitting up in bed in no acute distress. CVS: Normal S1 and S2. Regular rate and rhythm. Ches t: Breath sounds present bilaterally with minimal crackles in both bases. Abdomen: Obese, bowel s ounds are present. Extremities: No edema. Neuro: She is alert and oriented x3, able to move all 4 extremities. DIET: Consistent carb, heart healthy diet. Avoid caffeine. ACTIVITY: As tolerated. The patient received education about the physical limitations in the postop period after pacemaker p lacement. DISPOSITION: To home. STATUS WHILE IN THE HOSPITAL: Inpatient. Please keep in mind that this is a summarized version of this patient's hospital stay. If you need more information, please feel free to call me at [phone] or please obtain the full medical carmen rds. TIME SPENT: Approximately 50 minutes was spent to complete this discharge. [id number]/[facility] #: [id number]
--- NOTE | 2017-06-03 09:58 | OP ---
CC: Dr. Bebeto Perez; primary care physician, Nahomy Gordon MD * DUAL-CHAMBER PACEMAKER IMPLANTATION: DATE OF OPERATION: 05/31/17 - ROOM #441 DATE OF : 41 SURGEON: Dalia Luke MD ANESTHESIA: MAC. PROCEDURE: Dual-chamber pacemaker implantation. PRE-OP DIAGNOSIS: Sick sinus syndrome, symptomatic. POST-OP DIAGNOSIS: Sick sinus syndrome, symptomatic. INDICATIONS: Risks and benefits of the procedure have been discussed with the patient in the presence of her and daughter, they were amenable to proceeding. Questions were answered. On the day of procedure additional questions were answered. DESCRIPTION OF PROCEDURE: The patient's right hand and the left subclavian fossa was prepped and draped in the usual sterile fashion. Following a time- out procedure, the patient received 10 cc of radiopaque dye in the left upper extremity outlying the left axillary and left subclavian vein. Following this the patient received 15 cc of 1% lidocaine for local anesthesia and additionally the patient received 25 mg of Benadryl as well as 5 mg of Versed and 75 mcg of Fentanyl for sedation. Using a 10-blade knife a 2.5 cm incision was made in left subclavian fossa and using Bovie and blunt dissection the incision was then extended . Additional lidocaine was infused medially and using blunt dissection a small pocket was fashioned. Using a modified Seldinger technique and fluoroscopic guidance, the left subclavian vein was cannulated and a guidewire inserted using fluoroscopic guidance and the procedure repeated using a second guidewire. Using an introducer technique, the right ventricular lead was guided into the right ventricular apex, was actively fixed in placed. Pacing thresholds were high and required repositioning. Using the second guidewire and an introducer technique the right atrial lead was guided into the right atrial appendage actively fixed in place, but thresholds were not adequate. The lead was then repositioned with good pacing and sensing thresholds. Following this both leads were sutured in place to the pocket using 0 silk suture. The pocket was copiously irrigated. Leads were attached to the generator. The generator was placed in the pocket and the incision was closed with 2 layers of absorbable suture, 2-0 followed by 4-0 followed by quyen and an external dressing. FINDINGS: The system is a Chel[employer]ile MRI compatible system. The device is a Medtronic Advisa DRMRI model 82DR01, serial number [id number]. The ventricular lead is a Medtronic model 5076-52, serial number [id number], R- wave were sensed at 11 millivolts with a ventricular lead impedance of 1222 ohms and ventricular pacing threshold of 1.1 volts at 0.5 milliseconds. The atrial lead is a Medtronic model 5076-45 serial number [id number] with P-waves sensed at 3.5 millivolts and atrial lead impedance of 452 ohms and an atrial pacing threshold of 1.2 volts at 0.5 milliseconds. The patient's estimated blood loss is less than 5 cc. The patient was hemodynamically stable throughout the procedure. She would intermittently wake up and require additional sedation but this was done easily without complications. The patient was stable in Recovery and on transfer to floor. [id number]/[facility] #: [id number] [facility] MEDICAL CENTERMiranda
== END 2017-06-01 15:19 | disposition home health service (06) | DRG 242 ==
LOC: ED 00:51 → ICU 02:15 → OBSVTOIN 08:14 → MEDTELE 05-30 10:53
PROVIDERS: ADMIT Hospitalist; ATTEND Internal Medicine
PROC: 02H63JZ Insertion of Pacemaker Lead into Right Atrium, Percutaneous Approach (ICD-10-PCS; 2017-05-31)
PROC: 02HK3JZ Insertion of Pacemaker Lead into Right Ventricle, Percutaneous Approach (ICD-10-PCS; 2017-05-31)
PROC: 0JH606Z Insertion of Pacemaker, Dual Chamber into Chest Subcutaneous Tissue and Fascia, Open Approach (ICD-10-PCS; principal; 2017-05-31 14:00)
DX: I49.5 Sick sinus syndrome (principal); I50.33 Acute on chronic diastolic (congestive) heart failure; I47.2 Ventricular tachycardia; E66.01 Morbid (severe) obesity due to excess calories; E11.9 Type 2 diabetes mellitus without complications; F32.9 Major depressive disorder, single episode, unspecified; D64.9 Anemia, unspecified; J44.9 Chronic obstructive pulmonary disease, unspecified; I08.0 Rheumatic disorders of both mitral and aortic valves; Z88.0 Allergy status to penicillin; Z88.5 Allergy status to narcotic agent; Z88.8 Allergy status to other drugs, medicaments and biological substances; I25.10 Atherosclerotic heart disease of native coronary artery without angina pectoris; Z95.5 Presence of coronary angioplasty implant and graft; E78.5 Hyperlipidemia, unspecified; Z79.4 Long term (current) use of insulin; K21.9 Gastro-esophageal reflux disease without esophagitis; Z96.659 Presence of unspecified artificial knee joint; Z83.3 Family history of diabetes mellitus; Z80.1 Family history of malignant neoplasm of trachea, bronchus and lung; Z80.7 Family history of other malignant neoplasms of lymphoid, hematopoietic and related tissues; Z82.49 Family history of ischemic heart disease and other diseases of the circulatory system; Z87.891 Personal history of nicotine dependence; Z68.39 Body mass index [BMI] 39.0-39.9, adult; N28.9 Disorder of kidney and ureter, unspecified; I11.0 Hypertensive heart disease with heart failure; Z85.850 Personal history of malignant neoplasm of thyroid; E89.0 Postprocedural hypothyroidism; Y83.6 Removal of other organ (partial) (total) as the cause of abnormal reaction of the patient, or of later complication, without mention of misadventure at the time of the procedure; Z79.52 Long term (current) use of systemic steroids; Z79.82 Long term (current) use of aspirin; Z79.02 Long term (current) use of antithrombotics/antiplatelets
CPT/HCPCS: 33208; 36415; 71010; 71020; 80048; 80053; 81003; 82550; 82553; 82565; 82607; 82668; 82728; 82746; 83036; 83540; 83550; 83605; 83690; 83735; 83880; 84443; 84484; 84520; 85025; 85027; 85610; 85730; 86140; 87641; 93005; 93306; 94640; 94760; 99156; 99157; A9270-GY; C1785; C1898; C8929; G0378; J0360; J1200; J1644; J1940; J2001; J2250; J2310; J3010; Q9967

== ENCOUNTER 2017-06-01 19:12 | Emergency (ER) | payer MEDICARE, MEDICAID ==
--- NOTE | 2017-06-01 20:01 | ED ---
Damien Urbina Benjamin, scribed for Forest Del Cid MD on 06/01/17 at 1954 . HPI Diabetic - HPI Summary HPI Summary: 71yo female BIBA for confusion and altered mental status today. Pt is diabetic, and per family, EMS told her she had low blood glucose level. BG was 34 at scene, then was subsequently brought up to 56 then 82. Pt never had similar episode before. Pt states that symptoms are resolved and that she feels fine now. - History Of Current Complaint Chief Complaint: EDDiabeticProb Time Seen by Provider: 06/01/17 19:46 Hx Obtained From: Patient Onset/Duration: Lasting Hours, Resolved Timing: Constant Severity Initially: Moderate Severity Currently: None Character: Comatose, Confused Aggravating: Other - low BG Alleviating: EMS Treatment Associated Signs & Symptoms: Decreased Level of Conciousness Related History: DM II, Insulin Requiring, Insulin Pump - Allergies/Home Medications Allergies/Adverse Reactions: Allergies Allergy/AdvReac Type Severity Reaction Status Date / Time Morphine Allergy Severe Hives Verified 05/29/17 00:56 Penicillins Allergy Severe Rash And Verified 05/29/17 00:56 Itching Propoxyphene [From Darvon] Allergy Hives Verified 05/29/17 00:56 PMH/Surg Hx/FS Hx/Imm Hx Endocrine/Hematology History: Reports: Hx Diabetes, Hx Thyroid Disease - thyroidectomy Cardiovascular History: Reports: Hx Angina, Hx Coronary Artery Disease - 14 STENTS, Hx Hypercholesterolemia, Hx Hypertension, Hx Myocardial Infarction, Hx Pacemaker/ICD, Other Cardiovascular Problems/Disorders - CAD Denies: Hx Congestive Heart Failure Respiratory History: Denies: Hx Asthma GI History: Reports: Hx Gastroesophageal Reflux Disease History: Denies: Hx Renal Disease Sensory History: Reports: Hx Contacts or Glasses Denies: Hx Hearing Aid Opthamlomology History: Reports: Hx Contacts or Glasses Psychiatric History: Reports: Hx Depression Denies: Hx Panic Disorder - Cancer History Cancer Type, Location and Year: THYROID 2009 - Surgical History Surgery Procedure, Year, and Place: THYROIDECTOMY -BILATERAL CATARACTS. 05/04/11 -4 CARDIAC STENTS XIENCE V. 01/20/16-2 CARDIAC STENTS RESOLUTE INTEGRITY-ALL STENTS APPROVE FOR 1.5 OR 3T AND WILL BE SCANNED IN NORMAL MODE-INFO IN OTHER FACILITY INFO. BACK SURGERY MANY YEARS [id number] KNEE REPLACEMENT-BILATERAL FEET SURGERY Infectious Disease History: Denies: Hx of Known/Suspected MRSA, Traveled Outside the [place] in Last 30 Days - Family History Known Family History: Positive: Cardiac Disease - Brother with CAD/VA at 50 - Social History Occupation: Retired Lives: With Family Alcohol Use: None Substance Use Type: Reports: None Hx Tobacco Use: Yes Smoking Status (MU): Former Smoker Type: Cigarettes Have You Smoked in the Last Year: No Review of Systems Constitutional: Negative Eyes: Negative ENT: Negative Cardiovascular: Negative Respiratory: Negative Gastrointestinal: Negative Genitourinary: Negative Musculoskeletal: Negative Skin: Negative Neurological: Other - AMS earlier, now resolved Psychological: Normal All Other Systems Reviewed And Are Negative: Yes Physical Exam Triage Information Reviewed: Yes Vital Signs On Initial Exam: Initial Vitals Temp Pulse Resp BP Pulse Ox 96.4 F 64 16 147/77 99 06/01/17 19:37 06/01/17 19:37 06/01/17 19:37 06/01/17 19:37 06/01/17 19:37 Vital Signs Reviewed: Yes Appearance: Positive: Well-Appearing, No Pain Distress Skin: Positive: Warm Head/Face: Positive: Normal Head/Face Inspection Eyes: Positive: ALEXA ENT: Positive: Hearing grossly normal Neck: Positive: Supple Respiratory/Lung Sounds: Positive: Breath Sounds Present Cardiovascular: Positive: RRR Abdomen Description: Positive: Nontender, Soft Musculoskeletal: Positive: Strength/ROM Intact Neurological: Positive: Alert, Oriented to Person Place, Time Diagnostics - Vital Signs Vital Signs Temp Pulse Resp BP Pulse Ox 06/01/17 19:37 96.4 F 64 16 147/77 99 - Laboratory Lab Results: Lab Results 06/01/17 Range/Units 19:23 POC Glucose (mg/dL) 82 (74-106) mg/dL Result Diagrams: 06/01/17 20:00 06/01/17 20:00 Lab Statement: Any lab studies that have been ordered have been reviewed, and results considered in the medical decision making process. Re-Evaluation - Re-Evaluation First Eval Change: Improved Diabetic Course/Dx - Diagnoses Provider Diagnoses: Hypoglycemia Discharge - Discharge Plan Condition: Stable Disposition: HOME Patient Education Materials: Hypoglycemia in a Person with Diabetes (ED) Referrals: Sade Gordon MD [Primary Care Provider] - The documentation as recorded by the scribe, Quezaad,Artis accurately reflects the service I personally performed and the decisions made by me, Forest Del Cid MD.
[2017-06-01 20:12] LABS: Hematocrit 34 % (35-47); Hemoglobin 11.2 g/dl (12.0-16.0); Mean Corpuscular HGB Conc 33 g/dl (31-36); Mean Corpuscular Hemoglobin 30 pg (27-31); Mean Corpuscular Volume 92 fL (80-97); Mean Platelet Volume 8 um3 (7.4-10.4); Red Blood Count 3.73 10^6/ul (4.0-5.4); Red Cell Distribution Width 16 % (10.5-15); White Blood Count 11.6 10^3/ul (3.5-10.8)
[2017-06-01 20:29] LABS: EGFR African American 63.3 (>60); EGFR Non-African American 49.2 (>60); Potassium 3.5 mmol/L (3.5-5.0)
[2017-06-01 20:34] LABS: Albumin 3.9 g/dL (3.2-5.2); BUN/Creatinine Ratio 22.9 (8-20); Calcium 9.2 mg/dL (8.6-10.3); Globulin 3.6 g/dL (2-4); Total Bilirubin 0.5 mg/dL (0.2-1.0); Total Protein 7.5 g/dL (6.4-8.9)
[2017-06-01 21:05] VITALS: BP 131/53
== END 2017-06-01 21:16 | disposition home or self-care (01) ==
LOC: ED 19:12
DX: E11.649 Type 2 diabetes mellitus with hypoglycemia without coma (principal); Z79.4 Long term (current) use of insulin; I25.10 Atherosclerotic heart disease of native coronary artery without angina pectoris; I10 Essential (primary) hypertension; E78.00 Pure hypercholesterolemia, unspecified; I25.2 Old myocardial infarction; Z95.0 Presence of cardiac pacemaker; K21.9 Gastro-esophageal reflux disease without esophagitis; Z88.5 Allergy status to narcotic agent; Z88.0 Allergy status to penicillin; F32.9 Major depressive disorder, single episode, unspecified; Z87.891 Personal history of nicotine dependence; Z85.850 Personal history of malignant neoplasm of thyroid
CPT/HCPCS: 36415; 80053; 85025; 96360; 96372; 99285

== ENCOUNTER 2017-12-08 23:42 | Observation (INO) | payer MEDICARE, MEDICAID ==
[2017-12-09] MEDS: Aspirin Low Dose CHEW TAB* 81 MG PO ONE ×2 (00:18→00:19)
[2017-12-09] MEDS ORDERED: Nitroglycerin 2% OINT* 1 GM PAK TOPICAL ONE (00:22)
[2017-12-09 00:24] LABS: Hematocrit 37 % (35-47); Hemoglobin 12.1 g/dl (12.0-16.0); Mean Corpuscular HGB Conc 33 g/dl (31-36); Mean Corpuscular Hemoglobin 29 pg (27-31); Mean Corpuscular Volume 89 fL (80-97); Mean Platelet Volume 8 um3 (7.4-10.4); Platelet Count 251 10^3/ul (150-450); Red Blood Count 4.13 10^6/ul (4.0-5.4); Red Cell Distribution Width 18 % (10.5-15); White Blood Count 6.9 10^3/ul (3.5-10.8)
[2017-12-09 00:35] LABS: EGFR Non-African American 52.5 (>60)
[2017-12-09] MEDS ORDERED: Acetaminophen TAB* 325 MG PO ONE (00:51)
[2017-12-09] MEDS ORDERED: Heparin DRIP 25,000 UNITS(*) 25,000 UNITS/500 ML BAG IVPB SCH (01:00)
[2017-12-09] MEDS ORDERED: Heparin VIAL(*) 5000 UNITS/ML VIAL (FIVE THOUSAND) IV SCH (01:00)
[2017-12-09 01:03] LABS: ABS Basophils 0 10^3/ul (0-0.2); ABS Eosinophils 0.1 10^3/ul (0-0.6); ABS Lymphocytes 3.2 10^3/ul (1.0-4.8); ABS Monocytes 0.6 10^3/ul (0-0.8); ABS Neutrophils 2.9 10^3/ul (1.5-7.7); ABS Nucleated RBC 0 10^3/ul; Eosinophil % 2.1 % (0-6); Lymphocyte % 46.6 % (25-47); Nucleated Red Blood Cells % 0.1
[2017-12-09] MEDS ORDERED: Iodixanol* (CONTRAST) 320 MG/ML 100 ML SDV IV ONE (02:32)
--- NOTE | 2017-12-09 02:41 | ED ---
Pam Urbina Thomas, scribed for Yuri Castellano on 12/09/17 at 0014 . HPI Chest Pain - HPI Summary HPI Summary: The patient is a 71 year old female complaining of substernal chest pain that began one hour prior to arrival. The pain radiates to her back and jaw. The pain is rated 7/10. She took SL NTG x3 prior to arrival to no relief of her pain. She took ASA 81 this morning. The patient denies dizziness, nausea, shortness of breath, and diaphoresis. Past medical history includes MT, DM, HTN , and HLD. Past surgical history includes stents and pacer. - History of Current Complaint Chief Complaint: EDChestPainROMI Time Seen by Provider: 12/09/17 00:01 Hx Obtained From: Patient Onset/Duration: Started Hours Ago - 1, Still Present Current Severity: Severe Pain Intensity: 7 Pain Scale Used: 0-10 Numeric Chest Pain Location: Discrete at: - Substernal Chest Pain Radiates: Yes Chest Pain Radiates To:: Back, Jaw Alleviating Factor(s): Nothing - NTG does not alleviate Associated Signs and Symptoms: Positive: Chest Pain. Negative: Other: Related History: Obesity - Additional Pertinent History Primary Care Physician: [id number] - Allergy/Home Medications Allergies/Adverse Reactions: Allergies Allergy/AdvReac Type Severity Reaction Status Date / Time Morphine Allergy Severe Hives Verified 09/05/17 09:57 Penicillins Allergy Severe Rash And Verified 09/05/17 09:57 Itching Propoxyphene [From Darvon] Allergy Hives Verified 09/05/17 09:57 PMH/Surg Hx/FS Hx/Imm Hx Endocrine/Hematology History: Reports: Hx Diabetes, Hx Thyroid Disease - thyroidectomy Cardiovascular History: Reports: Hx Angina, Hx Coronary Artery Disease - 14 STENTS, Hx Hypercholesterolemia, Hx Hypertension, Hx Myocardial Infarction, Hx Pacemaker/ICD, Other Cardiovascular Problems/Disorders - CAD Denies: Hx Congestive Heart Failure Respiratory History: Denies: Hx Asthma GI History: Reports: Hx Gastroesophageal Reflux Disease History: Denies: Hx Renal Disease Sensory History: Reports: Hx Contacts or Glasses Denies: Hx Hearing Aid Opthamlomology History: Reports: Hx Contacts or Glasses Psychiatric History: Reports: Hx Depression Denies: Hx Panic Disorder - Cancer History Cancer Type, Location and Year: THYROID 2009 - Surgical History Surgery Procedure, Year, and Place: THYROIDECTOMY -BILATERAL CATARACTS. 05/04/11 -4 CARDIAC STENTS XIENCE V. 01/20/16-2 CARDIAC STENTS RESOLUTE INTEGRITY-ALL STENTS APPROVE FOR 1.5 OR 3T AND WILL BE SCANNED IN NORMAL MODE-INFO IN OTHER FACILITY INFO. BACK SURGERY MANY YEARS [id number] KNEE REPLACEMENT-BILATERAL FEET SURGERY. PACEMAKER Infectious Disease History: No Infectious Disease History: Denies: Hx of Known/Suspected MRSA, Traveled Outside the [place] in Last 30 Days - Family History Known Family History: Positive: Cardiac Disease - Brother with CAD/MT at 50 - Social History Alcohol Use: None Substance Use Type: Reports: None Hx Tobacco Use: Yes Smoking Status (MU): Former Smoker Type: Cigarettes Have You Smoked in the Last Year: No Review of Systems Negative: Skin Diaphoresis Positive: Chest Pain Negative: Shortness Of Breath Negative: Nausea Neurological: Negative - dizziness All Other Systems Reviewed And Are Negative: Yes Physical Exam - Summary Physical Exam Summary: Appearance: Well appearing, no pain distress Skin: warm, dry, reflects adequate perfusion Head/face: normal Eyes: EOMI, ALEXA ENT: normal Neck: supple, non-tender Respiratory: CTA, breath sounds present Cardiovascular: RRR, pulses symmetrical Abdomen: non-tender, soft Bowel: present Musculoskeletal: normal, strength/ROM intact Neuro: normal, sensory motor intact, A&Ox3 Triage Information Reviewed: Yes Vital Signs On Initial Exam: Initial Vitals Temp Pulse Resp BP Pulse Ox 97.3 F 62 18 160/99 97 12/08/17 23:51 12/08/17 23:51 12/08/17 23:51 12/08/17 23:51 12/08/17 23:51 Vital Signs Reviewed: Yes Diagnostics - Vital Signs Vital Signs Temp Pulse Resp BP Pulse Ox 12/09/17 00:08 96 12/08/17 23:51 97.3 F 62 18 160/99 97 - Laboratory Lab Results: Lab Results 12/09/17 12/09/17 12/09/17 Range/Units 00:04 00:04 00:04 WBC 6.9 (3.5-10.8) 10^3/ul RBC 4.13 (4.0-5.4) 10^6/ul Hgb 12.1 (12.0-16.0) g/dl Hct 37 (35-47) % MCV 89 (80-97) fL MCH 29 (27-31) pg MCHC 33 (31-36) g/dl RDW 18 H (10.5-15) % Plt Count 251 (150-450) 10^3/ul MPV 8 (7.4-10.4) um3 Neut % (Auto) 41.5 (38-83) % Lymph % (Auto) 46.6 (25-47) % Swift % (Auto) 9.1 H (1-9) % Eos % (Auto) 2.1 (0-6) % Baso % (Auto) 0.7 (0-2) % Absolute Neuts (auto) 2.9 (1.5-7.7) 10^3/ul Absolute Lymphs (auto) 3.2 (1.0-4.8) 10^3/ul Absolute Monos (auto) 0.6 (0-0.8) 10^3/ul Absolute Eos (auto) 0.1 (0-0.6) 10^3/ul Absolute Basos (auto) 0 (0-0.2) 10^3/ul Absolute Nucleated RBC 0 10^3/ul Nucleated RBC % 0.1 APTT (26.0-36.3) seconds Sodium 132 L (133-145) mmol/L Potassium 4.5 (3.5-5.0) mmol/L Chloride 97 L (101-111) mmol/L Carbon Dioxide 28 (22-32) mmol/L Anion Gap 7 (2-11) mmol/L BUN 24 (6-24) mg/dL Creatinine 1.03 H (0.51-0.95) mg/dL Est GFR ( Amer) 67.6 (>60) Est GFR (Non-Af Amer) 52.5 (>60) BUN/Creatinine Ratio 23.3 H (8-20) Glucose 273 H (70-100) mg/dL Lactic Acid 1.5 (0.5-2.0) mmol/L Calcium 10.2 (8.6-10.3) mg/dL Total Bilirubin 0.30 (0.2-1.0) mg/dL AST 17 (13-39) U/L ALT 20 (7-52) U/L Alkaline Phosphatase 67 (34-104) U/L Troponin I 0.01 (<0.04) ng/mL Total Protein 7.7 (6.4-8.9) g/dL Albumin 4.3 (3.2-5.2) g/dL Globulin 3.4 (2-4) g/dL Albumin/Globulin Ratio 1.3 (1-3) 12/09/17 Range/Units 00:04 WBC (3.5-10.8) 10^3/ul RBC (4.0-5.4) 10^6/ul Hgb (12.0-16.0) g/dl Hct (35-47) % MCV (80-97) fL MCH (27-31) pg MCHC (31-36) g/dl RDW (10.5-15) % Plt Count (150-450) 10^3/ul MPV (7.4-10.4) um3 Neut % (Auto) (38-83) % Lymph % (Auto) (25-47) % Swift % (Auto) (1-9) % Eos % (Auto) (0-6) % Baso % (Auto) (0-2) % Absolute Neuts (auto) (1.5-7.7) 10^3/ul Absolute Lymphs (auto) (1.0-4.8) 10^3/ul Absolute Monos (auto) (0-0.8) 10^3/ul Absolute Eos (auto) (0-0.6) 10^3/ul Absolute Basos (auto) (0-0.2) 10^3/ul Absolute Nucleated RBC 10^3/ul Nucleated RBC % APTT 53.8 H (26.0-36.3) seconds Sodium (133-145) mmol/L Potassium (3.5-5.0) mmol/L Chloride (101-111) mmol/L Carbon Dioxide (22-32) mmol/L Anion Gap (2-11) mmol/L BUN (6-24) mg/dL Creatinine (0.51-0.95) mg/dL Est GFR ( Amer) (>60) Est GFR (Non-Af Amer) (>60) BUN/Creatinine Ratio (8-20) Glucose (70-100) mg/dL Lactic Acid (0.5-2.0) mmol/L Calcium (8.6-10.3) mg/dL Total Bilirubin (0.2-1.0) mg/dL AST (13-39) U/L ALT (7-52) U/L Alkaline Phosphatase (34-104) U/L Troponin I (<0.04) ng/mL Total Protein (6.4-8.9) g/dL Albumin (3.2-5.2) g/dL Globulin (2-4) g/dL Albumin/Globulin Ratio (1-3) Result Diagrams: 12/09/17 00:04 12/09/17 00:04 Lab Statement: Any lab studies that have been ordered have been reviewed, and results considered in the medical decision making process. - Radiology CXR Xray Interpretation: No Acute Changes - Negative CXR Radiology Interpretation Completed By: ED Physician - EKG 23:57 Cardiac Rate: NL EKG Rhythm: Sinus Rhythm - at 67 BPM EKG Interpretation: ST changes in the lateral leads. Chest Pain Course/Dx - Course Assessment/Plan: The patient is a 71 year old female complaining of substernal chest pain that began one hour prior to arrival. Past medical history includes MT, DM, HTN, and HLD. Past surgical history includes stents and pacer. In the ED course the patient was given ASA, heparin, and NTG. Bloodwork was obtained. EKG shows sinus rhythm with ST changes in the lateral leads. CXR is negative. The patient is diagnosed with ACS and chest pain. The patient will be admitted by Dr. Serna. 35 minutes of critical care time. - Chest Pain Differential Diagnosis/HQI/PQRI: Acute MT, ACS, CHF, Lower Respiratory Infection , Pulmonary Edema - Diagnoses Provider Diagnoses: ACS (acute coronary syndrome), Chest pain - Provider Notifications Discussed Care Of Patient With: Steve Sheridan Time Discussed With Above Provider: 00:15 Instructed by Provider To: Other - I asked Dr. Sheridan to look at the EKG. He does not think that the EKG is a STEMI. The patient will be admitted to Dr. Serna, hospitalist. - Critical Care Time Critical Care Time: 30-74 min - 35 minutes Discharge - Discharge Plan Condition: Fair Disposition: ADMITTED TO [facility] Referrals: Sade Gordon MD [Primary Care Provider] - The documentation as recorded by the Pam victor Thomas accurately reflects the service I personally performed and the decisions made by me, Yuri Castellano.
[2017-12-09] MEDS ORDERED: Al Hydrox/Mg Hydrox/Simet LIQ* 30 ML UDC PO PRN (03:57)
[2017-12-09] MEDS ORDERED: Docusate CAP* 100 MG PO PRN (03:57)
[2017-12-09] MEDS ORDERED: Senna TAB PO PRN (03:57)
[2017-12-09] MEDS ORDERED: Acetaminophen TAB* 325 MG PO PRN (03:57)
[2017-12-09] MEDS ORDERED: Ondansetron INJ* 2 MG/ML VIAL IV PRN (03:57)
[2017-12-09] MEDS ORDERED: CMCS Pantoprazole TAB (NF) 40 MG TAB PO SCH (06:00)
[2017-12-09] MEDS ORDERED: Levothyroxine TAB* 100 MCG TAB PO SCH (06:00)
--- NOTE | 2017-12-09 07:58 | RAD ---
Indication: Chest pain. Single frontal view of the chest performed at 0025 hours was reviewed. Comparison is made with previous exam dated July 17, 2017. No mediastinal shift is noted. Heart is of normal size and configuration. Lung humphries appear clear. IMPRESSION: NO ACTIVE CARDIOPULMONARY DISEASE IS NOTED.
--- NOTE | 2017-12-09 08:16 | RAD ---
HISTORY: Chest pain, back pain COMPARISONS: March 15, 2012 TECHNIQUE: Multiple contiguous axial CT scans of the chest were obtained after the administration of nonionic intravenous contrast, timed to the pulmonary arterial phase of contrast enhancement.. Coronal and sagittal multiplanar reformations are also submitted for review. FINDINGS: NECK AND THYROID: The lower neck and thyroid are unremarkable. CHEST WALL: There is no lower cervical, axillary, or supraclavicular lymphadenopathy by size criteria. A left-sided pacemaker is noted. HEART AND PERICARDIUM: Coronary and valvular cardiac calcifications are noted. AORTA AND PULMONARY VASCULATURE: There is no pulmonary arterial filling defect to suggest pulmonary embolism. There is no linear filling defect within the aorta to suggest aortic dissection. There is atherosclerosis of the thoracic aorta. MEDIASTINUM: There is no mediastinal lymphadenopathy by size criteria. ZOIE: There is no hilar lymphadenopathy by size criteria. AIRWAY AND ESOPHAGUS: The airway is unremarkable, without endobronchial filling defect. The esophagus is grossly normal. LUNG PARENCHYMA: There is mild interlobular epididymis change. PLEURA: No pleural abnormalities are noted. UPPER ABDOMEN: There is a 1.5 cm left adrenal nodule measuring 2 Hounsfield units consistent with an adenoma. There is a punctate nonobstructing left renal calyceal stone. BONES AND SOFT TISSUES: No bone or soft tissue abnormalities are noted. OTHER: None. IMPRESSION: 1. NO PULMONARY ARTERIAL FILLING DEFECT TO SUGGEST PULMONARY EMBOLISM. 2. EMPHYSEMA. 3. ATHEROSCLEROSIS. 4. LEFT ADRENAL ADENOMA, STABLE. 5. PUNCTATE LEFT RENAL CALYCEAL STONE.
[2017-12-09] MEDS ORDERED: Isosorbide Mononitrate ER TAB* 60 MG PO SCH (09:00)
[2017-12-09] MEDS ORDERED: LUBIPROSTONE 8 MCG PO SCH (09:00)
[2017-12-09] MEDS ORDERED: CMC:Ranolazine (NF) 500 MG TAB PO SCH (09:00)
[2017-12-09] MEDS ORDERED: BuPROPion XL* 300 MG TAB.XL PO SCH (09:00)
[2017-12-09] MEDS ORDERED: Losartan TAB* 25 MG PO SCH (09:00)
[2017-12-09] MEDS ORDERED: Clopidogrel TAB* 75 MG PO SCH (09:00)
[2017-12-09] MEDS ORDERED: Aspirin EC Low Dose* 81 MG TAB.EC PO SCH (09:00)
[2017-12-09] MEDS ORDERED: amLODIPine TAB* 5 MG PO SCH (09:00)
[2017-12-09] MEDS ORDERED: Metoprolol Succinate XL TAB* 50 MG PO SCH (09:00)
[2017-12-09] MEDS ORDERED: Mometasone/Formoter 200/5 MDI INH SCH (09:00)
[2017-12-09] MEDS: Gabapentin CAP(*) 300 MG PO SCH ×2 (10:08→14:06)
--- NOTE | 2017-12-09 10:26 | HP ---
CC: Sade Gordon MD; Bebeto Perez MD HISTORY AND PHYSICAL: DATE OF ADMISSION: 12/09/17 TIME OF EVALUATION: 0200. PRIMARY CARE PHYSICIAN: Saed Gordon MD CROP PULLER: Bebeto Perez MD CHIEF COMPLAINT: Chest pain. HISTORY OF PRESENT ILLNESS: This is a 71-year-old female with a past medical history of coronary artery disease, status post 14 stents, who presents to the emergency room with acute onset of chest pain. The patient states this evening she was watching TV when she became acutely uncomfortable with chest pain radiating to her back and up into her jaw. She did have some nausea and feeling of heartburn. No shortness of breath or diaphoresis. She took 3 nitro and still had a discomfort and came to the emergency room for further evaluation. In the emergency room, she was given 81 mg of aspirin, Tylenol, and an inch of nitro paste. She still has the back discomfort, but the chest discomfort has resolved. The patient states she has gained about 5 pounds over the past few weeks. She denies any leg swelling, but states her rings are tight. No fevers or chills. No recent viral illness, abdominal pain, or urinary symptoms. She states that she does not have a medication list, but no med changes to last admission back in May except for decreasing her Klor-Con. She states she is not sure when her last nuclear stress test was, but she had a very hard time doing it and was very reluctant to have it done again. Otherwise , review of systems is negative. The patient was referred to the hospitalist service for further evaluation. PAST MEDICAL HISTORY: 1. History of diastolic congestive heart failure. 2. History of sick sinus syndrome, status post pacemaker placement in May 2017. 3. Coronary artery disease, status post 14 stents. 4. Hyperlipidemia. 5. Hypertension. 6. Diabetes. 7. History of thyroid carcinoma, status post thyroidectomy with postsurgical hypothyroidism. 8. GERD. 9. Depression. 10. Morbid obesity. 11. Peripheral neuropathy. 12. COPD. MEDICATIONS: From her discharge summary from 05/27/17: 1. Insulin pump with continued correctional insulin scale. 2. Isosorbide mononitrate 60 mg p.o. daily. 3. Symbicort 160/4.5 mg one puff inhaled b.i.d. 4. Bupropion XL 200 mg p.o. daily. 5. Cholecalciferol 1000 units p.o. daily. 6. Rosuvastatin 80 mg p.o. at bedtime. 7. Nexium 40 mg daily. 8. Januvia 100 mg p.o. daily. 9. Metoprolol succinate 50 mg p.o. daily. 10. Gabapentin 600 mg p.o. t.i.d. 11. Benzonatate 200 mg p.o. t.i.d., as needed for cough. 12. Losartan 100 mg p.o. daily. 13. Nitro 0.4 mg sublingual q.5 minutes as needed for chest pain. 14. Amitiza 8 mcg p.o. q.12. 15. Levothyroxine 200 mg p.o. daily. 16. Metformin 500 mg p.o. b.i.d. 17. Ranexa 1000 mg p.o. b.i.d. 18. Aspirin 81 mg p.o. daily. 19. Plavix 75 mg p.o. daily. 20. Amlodipine 5 mg daily. 21. Potassium chloride 20 mEq p.o. daily. 22. Lasix 20 mg p.o. daily. ALLERGIES: MORPHINE, PENICILLIN, PROPOXYPHENE. FAMILY HISTORY: Mother in her 80s from a stroke. Father from lung cancer in his 60s. She has a significant family history with her brother having an OR in his 50s, her other brother has coronary artery disease and a sister with pacemaker. SOCIAL HISTORY: The patient lives at home with her partner, Lucas. She is independent in her ADLs. Lucas is her healthcare proxy. She quit smoking 16 years ago, [id number] history, no alcohol use, no illicit drug use. CODE STATUS: I discussed this with her. She is hesitant to be a full code, her partner wants her to be. She is a full code for now. I gave her MOLST form to review. REVIEW OF SYSTEMS: A 14-point review of systems as mentioned in the HPI, otherwise negative. PHYSICAL EXAMINATION GENERAL: No acute distress. Resting comfortably with her at the bedside. VITAL SIGNS: Temp 97.3, pulse rate 60, respiratory rate 17, oxygen saturation 98% on 2 L, blood pressure 143/60. HEENT: Head: Normocephalic. Pupils equal and reactive. Oropharynx: Mucous membranes are moist. NECK: Supple. No lymphadenopathy. RESPIRATORY: Diminished breath sounds. No wheezing, rhonchi, or rales. CARDIAC: Regular rate and rhythm. Soft systolic murmur heard throughout. ABDOMEN: Soft, nontender, nondistended EXTREMITIES: No clubbing, cyanosis. Trace edema. NEUROLOGIC: Alert and oriented x3. No gross focal neurologic deficits. DIAGNOSTIC STUDIES/LAB DATA: White count 6.9, hemoglobin 12.1, hematocrit 37, platelets 251. PTT is 53. Sodium 132, potassium 4.5, chloride 97, bicarb 28, BUN 24, creatinine 1.03, glucose 273. Troponin 0.01. Chest x-ray: Mildly prominent interstitial markings. EKG: Unable to obtain in the computer or paper chart at this time. We are repeating it now. Dr. Castellano had Dr. Sheridan review the EKG and it was found unremarkable per Dr. Sheridan. ASSESSMENT AND PLAN: This is a 71-year-old female with past medical history of known coronary disease with multiple stents presents to the emergency room with chest pain radiating into her back and her jaw. Chest pain. Assessment: Still with persistent back pain, concern for dissection. Her blood pressures are creeping up as well. Also, concern for unstable angina versus non -ST elevation myocardial infarction. The patient will start her on heparin drip in the emergency room. Plan: We will get a CT of the chest to rule out dissection prior to admission. We will trend her troponins and obtain an echo and consider consulting Cardiology if any abnormalities are seen. Will order stress test if she rules out for ACS. CHRONIC MEDICAL PROBLEMS: 1. Diabetes: As mentioned, we will continue and have her manage her insulin pump and resume her home medication list. 2. FEN. We will keep her n.p.o. 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 3. DVT prophylaxis. The patient is currently on a heparin drip. She was moderate risk. 4. Code status. The patient initially is a Full Code. I recommend discussing with her partner and her primary to readdress this. I gave her a blank MOLST form. PATIENT TIME: Greater than 70 minutes was spent doing the history and physical , more than half the time spent in direct patient contact. [id number]/[facility] #: [id number] [facility] HOSPITALMiranda
--- NOTE | 2017-12-09 12:16 | CONS ---
CC: Dr. Sade Gordon, [facility] on [facility] in [place] * CARDIOLOGY CONSULTATION: DATE OF CONSULT: 12/09/17 REASON FOR CONSULT: Asked by Dr. Munira Serna to see the patient for evaluation of chest discomfort as the patient refusing Lexiscan stress test. HISTORY OF PRESENT ILLNESS: The patient is a pleasant 71-year-old female, known to me from a prior cardiac history. She states that she was in the usual state of health, lying in a slightly recumbent position at 12 midnight, watching TV, and developed the onset of chest discomfort, like a pressure burning discomfort, also going to the back. With it, she denied any profound diaphoresis or nausea or vomiting, but did admit to having a sour taste in her mouth. She has history of regurgitation as well, but was concerned because in the past with one of her heart attacks, she had the same acid taste symptom as well. She tried multiple nitroglycerin without relief and quickly presented to the emergency room. She received more nitroglycerin and Tylenol. Her discomfort, she believes, continued for some 2 hours. Her stated that it was better, but not completely relieved but eventually as of now, she has no discomfort. Overnight, her cardiac enzyme showed troponins of 0.01 x3. Her EKG showed no acute ST-segment changes and on repeat this morning, did not show any progression. Her cardiac history is extensive in nature and I would refer you to my office note for complete details. Back in 2010, she underwent multiple interventions at the [facility] with placements of stents in her distal right coronary artery with multiple bare-metal stents placed. She had restenosis and underwent drug-eluting stents following that at the [facility]. In March of 2012, she presented to [facility] and was found to have significant in-stent restenosis in the distal portion of the right coronary artery into the posterior left ventricular branch with total occlusion of an acute marginal branch, supplying a [id number] septal perforated area with excellent collateralization to mid diagonal branch of the LAD. This appeared to be a chronic collateralization. She underwent intervention to distal right coronary artery with again a drug-eluting stent. In 2015, she presented in [facility] with acute coronary syndrome and cardiac catheterization revealed a high-grade stenosis involving the superior limb of the distal obtuse marginal branch with 100% occlusion of the right PDA with well- established collaterals from left to right. She underwent PTCA and placement of 2.5 x 12 mm long Resolute drug-eluting stent in the superior portion of the third OM. She underwent iFR measurement of the distal right coronary artery and was found to be non-significant and as such, no further intervention was done. Since that time to now, she has not been hospitalized to undergo any cardiac catheterizations. She also has history of sick sinus syndrome with junctional bradycardia and required a permanent pacemaker placement in 2017, most recently checked the pacemaker was working well. Her last echocardiogram from May 2017 showed normal LV function. She has mild aortic stenosis with mild mitral regurgitation , mild mitral stenosis. Her last stress test from 2015 showed regadenoson with no evidence of ischemia or infarction with an EF of 72%. PAST MEDICAL HISTORY: Significant for essential hypertension. She has reported history of underlying asthma and chronic obstructive lung disease. She has a history of hypothyroidism as well as hyperlipidemia and insulin- requiring diabetes mellitus. MEDICATIONS: From home when I last saw her in September included: 1. Clopidogrel 75 mg a day. 2. Isosorbide mononitrate 60 mg a day. 3. Ranexa 1000 mg twice a day. 4. Metoprolol 25 mg twice a day. 5. Metformin 1000 mg twice a day. 6. Humalog. 7. Gabapentin 600 mg t.i.d. p.r.n. 8. Levothyroxine 200 mcg a day. 9. Aspirin 81 mg a day. 10. Losartan 100 mg a day. 11. Bupropion 300 mg a day. 12. Amitiza 8 mcg twice a day. 13. Crestor 20 mg a day. 14. Norvasc 5 mg a day. 15. Lasix 20 mg a day. 16. Vitamin D. 17. Potassium supplement. ALLERGIES: DARVON, PENICILLIN, MORPHINE. SOCIAL HISTORY: The patient is a nonsmoker, but did smoke in the past. She is , lives with her and retired. She denies any excessive alcohol or drug usage. REVIEW OF SYSTEMS: Per HPI. PHYSICAL EXAMINATION: When I see her, reveals an obese female, in no acute distress. Vital signs reveal blood pressure 119/74, pulse is 59, respirations 14, O2 saturation 100% on room air, afebrile. Neck is supple. There is no increased JVP. Carotid with good upstroke and volume. There were no definite bruits or transmitted murmur. Conjunctivae pink. Sclerae clear. Lungs reveal no accessory muscle usage. There is fair excursion. There are no active rales , rhonchi, or wheezes. Heart reveals no visible heaves, no palpable heaves or thrills. Regular rate and rhythm are noted. Soft systolic murmur at the right upper sternal border is noted without change. Abdomen is obese, soft, nontender. Extremities are without edema. Peripheral pulses are intact. Femoral pulses present on the right without bruit. Neuro: The patient is alert , oriented, with normal mentation. Musculoskeletal: The patient moves all extremities appropriate. Psychological: The patient with normal affect. DIAGNOSTIC STUDIES/LAB DATA: Laboratory results revealed hemoglobin and hematocrit of 12.1 and 37, platelet count 251,000, white count 6900. Sodium 132 , potassium 4.5, chloride 97, bicarb 28, BUN and creatinine 24 and 1.03. Troponins 0.01 x3. Her cholesterol profile reveals a total cholesterol of 133, triglycerides of 80, LDL of 65, HDL of 51. LFTs show SGOT of 17, SGPT of 20, total bili of 0.3. CTA of the chest, no pulmonary filling defects to suggest pulmonary embolism, emphysema noted, left atrial adenoma reported as stable and punctate left renal calculi stones noted. Chest x-ray report revealed no active cardiopulmonary disease. OVERALL ASSESSMENT: Taylor presents with atypical sounding symptoms, but disconcerting in nature given the fact that she has had multiple presentations of acute coronary syndrome. Clearly, the current one does not seem to show any progression in her EKG or any cardiac enzymes suggestive of an issue. At this point in time, she is now willing after I discussed with her to proceed with Lexiscan stress test and we will adjust management pending results. If there is a profound area of reversible ischemia, a consideration for need of cardiac catheterization may be entertained. If there are no areas of large ischemia, I would perhaps presume more aggressive therapy for gastroesophageal reflux. [id number]/[facility] #: [id number]/[facility] #: [id number] MAGALY
--- NOTE | 2017-12-09 12:16 | CONS ---
CC: Sade Gordon MD ADDENDUM: SOCIAL HISTORY: The patient is a nonsmoker, but did smoke in the past. She is , lives with h er and retired. She denies any excessive alcohol or drug usage. REVIEW OF SYSTEMS: Per HPI. PHYSICAL EXAMINATION: When I see her, reveals an obese female, in no acute distress. Vital signs re veal blood pressure 119/74, pulse is 59, respirations 14, O2 saturation 100% on room air, afebrile. Neck is supple. There is no increased JVP. Carotid with good upstroke and volume. There were no de finite bruits or transmitted murmur. Conjunctivae pink. Sclerae clear. Lungs reveal no accessory m uscle usage. There is fair excursion. There are no active rales, rhonchi, or wheezes. Heart reveal s no visible heaves, no palpable heaves or thrills. Regular rate and rhythm are noted. Soft systoli c murmur at the right upper sternal border is noted without change. Abdomen is obese, soft, nontende r. Extremities are without edema. Peripheral pulses are intact. Femoral pulses present on the righ t without bruit. Neuro: The patient is alert, oriented, with normal mentation. Musculoskeletal: Th e patient moves all extremities appropriate. Psychological: The patient with normal affect. DIAGNOSTIC STUDIES/LAB DATA: Laboratory results revealed hemoglobin and hematocrit of 12.1 and 37, p latelet count 251,000, white count 6900. Sodium 132, potassium 4.5, chloride 97, bicarb 28, BUN and creatinine 24 and 1.03. Troponins 0.01 x3. Her cholesterol profile reveals a total cholesterol of 13 3, triglycerides of 80, LDL of 65, HDL of 51. LFTs show SGOT of 17, SGPT of 20, total bili of 0.3. CTA of the chest, no pulmonary filling defects to suggest pulmonary embolism, emphysema noted, left a trial adenoma reported as stable and punctate left renal calculi stones noted. Chest x-ray report re vealed no active cardiopulmonary disease. OVERALL ASSESSMENT: Taylor presents with atypical sounding symptoms, but disconcerting in nature given the fact that she has had multiple presentations of acute coronary syndrome. Clearly, the current o ne does not seem to show any progression in her EKG or any cardiac enzymes suggestive of an issue. A t this point in time, she is now willing after I discussed with her to proceed with Lexiscan stress t est and we will adjust management pending results. If there is a profound area of reversible ischemi a, a consideration for need of cardiac catheterization may be entertained. If there are no areas of large ischemia, I would perhaps presume more aggressive therapy for gastroesophageal reflux. [id number]/[facility] #: [id number]
[2017-12-09] MEDS ORDERED: Dextrose 50% Syringe 50 ML* 25 GM/50 ML SYRINGE IV PUSH PRN (12:18)
[2017-12-09] MEDS ORDERED: Regadenoson* 0.4 MG/5 ML SYRINGE ONE (12:19)
[2017-12-09] MEDS ORDERED: Aminophylline IV* 25 MG/ML 10 ML VIAL ONE (12:19)
--- NOTE | 2017-12-09 14:19 | PN ---
Hospitalist Progress Note Date of Service: 12/09/17 I have seen and examined Ms. Randhawa with her at the bedside. She presented with atypical chest pain, though the pain is also not consistent with a GI source, and given her extensive cardiac history, she undergoing a stress test. ACS ruled out with troponins and ekg. Cardiology following. Will follow up results of stress test. We discussed her code status, and she wishes to be DNR. A MOLST was completed to reflect this.
--- NOTE | 2017-12-09 14:23 | RAD ---
Edited for charges. INDICATION: Chest pain. COMPARISON: Comparison is made with prior study from February 28, 2016. Technique: A single day myocardial perfusion stress study was performed. Initially the resting study was performed. The patient was given an intravenous injection of 10.2 mCi of technetium 99m tetrofosmin and and the heart was imaged in multiple projections. The patient returned later in the day and under the direction of Dr. Perez, the patient was given intervenous injection of Lexiscan. Subsequently the patient was given intravenous injection of 25.7 mCi of technetium 99m tetrofosmin and the heart was imaged in multiple projections. Images were reconstructed in the axial, sagittal and coronal planes and in a 3- D format. FINDINGS: There appears to be normal wall motion and myocardial thickening. The left ventricular ejection fraction was calculated to be 67%. Review of the images demonstrates mild decreased activity in the anterior wall on the post pharmacologic stress images which appears less prominent on the resting set of images suggestive of a small area of ischemia. IMPRESSION: FINDINGS SUGGESTIVE OF A SMALL AREA OF ISCHEMIA IN THE ANTERIOR WALL. ASSESSMENT: Low risk. Based on imaging criteria from ACC/AHA 2002 Guideline Update for the Management of Patients With Chronic Stable Angina Table 23. Noninvasive Risk Stratification. MTDD
[2017-12-09 15:41] VITALS: BP 144/56
[2017-12-09] MEDS ORDERED: Atorvastatin* 10 MG TAB PO SCH (17:00)
--- NOTE | 2017-12-10 10:52 | DS ---
DISCHARGE SUMMARY: DATE OF ADMISSION: 12/09/17 DATE OF DISCHARGE: 12/09/17 PRIMARY CARE PHYSICIAN: Dr. Sade Gordon. GOLF BALL INSPECTOR: Dr. Perez. ATTENDING PHYSICIAN: Dr. Madiha Solorzano. PRINCIPAL DISCHARGE DIAGNOSIS: Gastroesophageal reflux disease. SECONDARY DISCHARGE DIAGNOSES: 1. Coronary artery disease. 2. Chronic diastolic heart failure. 3. Sick sinus syndrome, status post pacemaker. 4. Hyperlipidemia. 5. Hypertension. 6. Type 1 diabetes, with insulin pump. 7. Thyroid carcinoma, status post thyroidectomy. 8. Depression. 9. Obesity. 10. Peripheral neuropathy. MEDICATIONS CHANGED ON THIS ADMISSION: New medications: 1. Pantoprazole 40 mg b.i.d. 2. Maalox 30 mL q.6 p.r.n. indigestion. Discontinued medications on this admission: 1. Nexium daily. Home medications unchanged from admission: 1. Insulin pump with continued correctional insulin scale. 2. Imdur 60 mg daily. 3. Symbicort 1 puff b.i.d. 4. Bupropion XL 200 mg daily. 5. Cholecalciferol 1000 units daily. 6. Rosuvastatin 80 mg at bedtime. 7. Januvia 100 mg daily. 8. Metoprolol succinate 50 mg daily. 9. Gabapentin 600 mg t.i.d. 10. Losartan 100 mg daily. 11. Nitro 0.4 sublingual q.5 minutes p.r.n. chest pain. 12. Amitiza 8 mcg q.12. 13. Levothyroxine 200 mcg daily. 14. Metformin 500 mg b.i.d. 15. Ranexa 1000 mg b.i.d. 16. Aspirin 81 mg daily. 17. Plavix 75 mg daily. 18. Amlodipine 5 mg daily. 19. KCl 20 mEq daily. 20. Lasix 20 mg daily. HOSPITAL COURSE BY PROBLEM: 1. Atypical chest pain. Ms. Randhawa was admitted for an acute coronary syndrome rule out, serial troponins and an EKG ruled out ACS; however, given her extensive coronary artery disease history, she was seen by Dr. Perez, who recommended a nuclear stress test. Nuclear stress test on 12/09/17 showed findings suggestive of a small area of ischemia in the anterior wall. This was discussed with Dr. Perez, who did not believe this to be the cause of Ms. Randhawa's chest pain. He suggested increasing her GERD medications and following up with him closely. As such, I am considering her a Nexium failure and discontinuing her Nexium and switching to Protonix b.i.d. instead of once daily, which she was taking with Nexium. I am recommending that she do this for 1 month and if her heartburn persists, she should follow up with her primary care physician for consideration of an EGD. I am also prescribing Maalox p.r.n. I encouraged her to avoid spicy foods and caffeine and to remain upright for 30 minutes after meals and provided education on gastroesophageal reflux disease. Still I emphasized the need for attention to chest pain and should her pain returns despite nitro and Maalox, she should return to the emergency department. I have arranged for followup with Dr. Perez in 1 week from today. Regarding her coronary artery disease, I continued her home medications of Ranexa, aspirin, statin, Plavix, Imdur, metoprolol, and p.r.n. nitroglycerin. 2. Coronary artery disease, status post 14 stents, managed as above. 3. Type 1 diabetes with an insulin pump. She was maintained on her home insulin regimen. This was not changed at this admission. 4. Sick sinus syndrome, status post pacemaker noted. 5. Postsurgical hypothyroidism. She was continued on her home dose of levothyroxine. 6. Chronic diastolic heart failure. She was euvolemic on this admission and continued on her usual dose of Lasix. CODE STATUS: A code discussion was had with her on this admission and she decided that she would like to be DNR/DNI. I completed the new MOLST with her and her . FOLLOWUP NEEDED: Ms. Randhawa is being discharged with 1-month supply of b.i.d. PPI after which she should follow up with her primary care provider to evaluate the efficacy of the PPI and if it is not effective, she should be referred for an EGD. I have arranged followup with Dr. Perez for her for 1 week from today. I instructed her to come to the emergency department with any further chest pain that does not resolve with nitro and Maalox. [id number]/[facility] #: [id number] [facility] CENTERMiranda
== END 2017-12-09 17:47 | disposition home or self-care (01) ==
LOC: ED 23:42 → INTOOBSV 12-09 03:57 → MEDTELE 12-09 03:57
PROVIDERS: ADMIT Pediatrics; ATTEND Internal Medicine
DX: R07.9 Chest pain, unspecified (principal); Z87.891 Personal history of nicotine dependence; I24.9 Acute ischemic heart disease, unspecified
CPT/HCPCS: 36415; 71045; 71275; 78452; 80053; 80061; 83605; 84484; 85025; 85730; 93005; 93017; 94640; 96374; 99284; A9270-GY; A9502; G0378; J0280; J1644; J2785; Q9967

== ENCOUNTER 2018-05-06 09:23 | Inpatient (IN) | payer MEDICARE, MEDICAID ==
[~2018-05-06 09:23] MED LIST: Buffered Lidocaine 0.9% SYRIN* 5 ML/SYR SYRINGE INTRADERM ONE; Famotidine IV* 10 MG/ML 2 ML (20 mg) IV ONE
[2018-05-06] MEDS ORDERED: Famotidine IV* 10 MG/ML 2 ML (20 mg) ONE (09:46)
[2018-05-06] MEDS ORDERED: Clindamycin 900 MG IVPREMIX(* 900 MG/50 ML SDV IV ONE (09:46)
[2018-05-06] MEDS ORDERED: Ondansetron ODT TAB* 4 MG ONE (09:55)
[2018-05-06] MEDS ORDERED: Propofol* 10 MG/ML 20 ML BTL IV PUSH ONE (09:55)
[2018-05-06] MEDS ORDERED: Lidocaine 2% PF * 5 ML VIAL ONE (09:55)
[2018-05-06] MEDS ORDERED: Dexamethasone IV* 4 MG/ML 1 ML (4 MG) ONE (09:55)
[2018-05-06] MEDS ORDERED: Phenylephrine INJ* 10 MG/ML 1 ML VIAL (10 MG) ONE (09:55)
[2018-05-06] MEDS ORDERED: Cisatracurium* 2 MG/ML MDV 5 ML ONE (09:56)
[2018-05-06] MEDS ORDERED: Midazolam* 1 MG/ML 5 ML VIAL (5 MG) ONE (09:56)
[2018-05-06] MEDS ORDERED: fentaNYL* 50 MCG/ML 2 ML VIAL (100 MCG VIAL) ONE ×2 (09:56→17:02)
[2018-05-06] MEDS ORDERED: KETAMINE HCL* 50 MG/ML 10 ML VIAL ONE (09:56)
[2018-05-06] MEDS ORDERED: Lidocaine 1% MPF wEPI 200,000* 30 ML SDV ONE (10:39)
[2018-05-06] MEDS ORDERED: Bacitracin IV* 50,000 UNITS INJ ONE (10:39)
[2018-05-06] MEDS ORDERED: Thrombin 5,000 UNITS* 1 APPLIC KIT - topical use - TOPICAL ONE (10:39)
[2018-05-06] MEDS ORDERED: VASOPRESSIN 20 UNITS/ML 1 ML VIAL ONE (12:53)
[2018-05-06] MEDS ORDERED: DiMENhydriNATE IV* 50 MG/ML VIAL IV PUSH PRN (13:11)
[2018-05-06] MEDS ORDERED: Naloxone* 0.4 MG/ML 1 ML VIAL IV PRN (13:11)
[2018-05-06] MEDS ORDERED: fentaNYL* 50 MCG/ML 2 ML VIAL (100 MCG VIAL) IV PRN (13:11)
[2018-05-06] MEDS ORDERED: Ondansetron 40 MG VIAL* 2 MG/ML 20 ML VIAL IV PRN (13:53)
[2018-05-06] MEDS ORDERED: Albuterol HFA INHALER* 8 gm MDI INH PRN (13:58)
[2018-05-06] MEDS ORDERED: Nitroglycerin TAB 0.4 MG* 0.4 MG TAB SL PRN (13:58)
[2018-05-06] MEDS ORDERED: Ketorolac INJ* 30 MG/ML 1 ML VIAL ONE (14:53)
[2018-05-06] MEDS ORDERED: EPHEDrine (Pressors)* 50 MG/ML VIAL ONE (15:02)
[2018-05-06] MEDS ORDERED: diPHENhydraMINE IV* 50 MG/ML 1 ml VIAL (BENADRYL) ONE (15:28)
[2018-05-06] MEDS: Gabapentin CAP(*) 300 MG PO SCH ×2 (17:16→19:42)
[2018-05-06] MEDS: Atorvastatin* 40 MG TAB PO SCH (18:11)
[2018-05-06] MEDS: Mometasone/Formoter 200/5 MDI INH SCH (20:27)
[2018-05-06] MEDS: Metoprolol Succinate XL TAB* 25 MG PO SCH (20:27)
[2018-05-06] MEDS: CMC:Ranolazine (NF) 500 MG TAB PO SCH (20:28)
[2018-05-06] MEDS: Acetaminophen TAB* 325 MG PO PRN (23:04)
[2018-05-07] MEDS ORDERED: traMADol TAB* 50 MG ONE (00:21)
[2018-05-07] MEDS: Acetaminophen TAB* 325 MG PO PRN ×4 (02:58→20:41)
[2018-05-07] MEDS: traMADol TAB* 50 MG PO PRN ×5 (04:37→22:09)
[2018-05-07] MEDS: Levothyroxine TAB* 100 MCG TAB PO SCH (04:51)
[2018-05-07] MEDS: Losartan TAB* 25 MG PO SCH (08:45)
[2018-05-07] MEDS: Gabapentin CAP(*) 300 MG PO SCH ×3 (08:45→20:40)
[2018-05-07] MEDS: Isosorbide Mononitrate ER TAB* 60 MG PO SCH (08:46)
[2018-05-07] MEDS: BuPROPion XL* 300 MG TAB.XL PO SCH (08:46)
[2018-05-07] MEDS: CMC:Ranolazine (NF) 500 MG TAB PO SCH ×2 (08:46→20:40)
[2018-05-07] MEDS: Omeprazole CAP* 20 MG PO SCH (08:47)
[2018-05-07] MEDS: Metoprolol Succinate XL TAB* 25 MG PO SCH ×2 (08:47→20:40)
[2018-05-07] MEDS: amLODIPine TAB* 5 MG PO SCH (08:47)
[2018-05-07] MEDS: Furosemide TAB* 20 MG PO SCH (08:47)
[2018-05-07] MEDS: Potassium Chlor TAB* 20 MEQ TAB.ER PO SCH (08:47)
[2018-05-07] MEDS: Mometasone/Formoter 200/5 MDI INH SCH ×2 (08:48→20:39)
[2018-05-07] MEDS: Atorvastatin* 40 MG TAB PO SCH (17:49)
--- NOTE | 2018-05-08 00:45 | OP ---
DATE OF OPERATION: 05/06/18 - ROOM #338 DATE OF : 41 PRIMARY SURGEON: Andrea Diez MD. SOD STRIPPER: SHARON Savage. ANESTHESIA: General. PRE-OP DIAGNOSIS: Lumbar spinal stenosis, L2-L3. POST-OP DIAGNOSIS: Lumbar spinal stenosis, L2-L3. OPERATIVE PROCEDURE: Decompression with lumbar laminectomy, L2-L3. DESCRIPTION OF PROCEDURE: After satisfactory general anesthesia was obtained, the patient was placed on the operating table in the prone position with the chest supported on the Michael frame and the back slightly flexed. The lumbar region was then clipped, prepped and draped in a sterile manner for lumbar laminectomy and the skin incision outlined from L2 to L3. The had had a previous large decompression below the L2 level. The large spinous process of L2 was skeletonized and self- retaining retractors were placed to facilitate exposure. The spinous process of L2 was then removed with a combination of Midas Luis drill and Leksell rongeurs. The inferior aspect over the remaining portion of the base of the spinous process of L2 and medial facet complex were then thinned out with the Midas Luis drill. There was noted to be marked facet hypertrophy at this level with her facets practically meeting in the midline. Kerrison rongeurs were then used to perform a decompression at this level. This was carried superiorly until the ligamentum flavum was detached. The ligamentum flavum was thickened and very vertically oriented. The decompression was then carried out inferiorly and a remaining ridge of bone at L3 was encountered. In the trying to get beneath this ridge of bone left from her decompression, the dura was noted to be quite adherent and an open was made in the dura inferiorly. Attempts were made to go out laterally to get to normal dura to enable repair of this area; however, the dura beneath the vestigial remaining portions of L3 appeared to be densely adherent. The decision was made at this point to not try to dissect further inferiorly due to a lack any type of normal tissue plane. A piece of DuraGen artificial dura was cut to fit over her exposed nerve roots. DuraSeal tissue adhesive was then placed on top of the DuraGen. It was felt that a satisfactory decompression had been achieved at this level. The fascia was then tightly reapproximated with interrupted 0 Vicryl sutures. The subcutaneous tissues were reapproximated with 3-0 Vicryl suture and the skin was closed with a running locking nylon suture. The estimated blood loss was less than 50 cc and the final sponge, padding and needle counts were correct. The patient was taken to the recovery room, extubated and in stable condition. [id number]/[facility] #: [id number] MTDD
[2018-05-08] MEDS: traMADol TAB* 50 MG PO PRN ×5 (03:55→23:25)
[2018-05-08] MEDS: Levothyroxine TAB* 100 MCG TAB PO SCH (05:42)
[2018-05-08] MEDS: Acetaminophen TAB* 325 MG PO PRN ×4 (07:39→23:26)
[2018-05-08] MEDS: Mometasone/Formoter 200/5 MDI INH SCH ×2 (08:13→19:51)
--- NOTE | 2018-05-08 09:26 | PN ---
Progress Note - Progress Note Date of Service: 05/08/18 SOAP: Subjective: [S/p L2-3 decompression complicated with CSF leak repaired immediately. Patient reports mild headache yesterday with sitting up. Denies headache and nausea today. Complains of low back and buttock pain. No headache with sitting up this AM. Eating and drinking without difficulty. ] Objective: [ Vital Signs: Temp Pulse Resp BP Pulse Ox 99.3 F 60 20 127/47 93 05/08/18 07:15 05/08/18 08:13 05/08/18 09:38 05/08/18 07:15 05/08/18 08:13 General: Alert and laying supine in bed. No acute pain. Neuro: Motor and sensory intact ] Assessment: [Satisfactory post-op.] Plan: [1. Discontinue elliott catheter today. 2. PT consult. 3. Up out of bed. 4. Raise HOB 5. Continue pain management.]
[2018-05-08] MEDS: CMC:SitaGLIPtin (NF) 100 MG TAB PO SCH (09:36)
[2018-05-08] MEDS: amLODIPine TAB* 5 MG PO SCH (09:37)
[2018-05-08] MEDS: CMC:Ranolazine (NF) 500 MG TAB PO SCH ×2 (09:37→20:30)
[2018-05-08] MEDS: Furosemide TAB* 20 MG PO SCH (09:37)
[2018-05-08] MEDS: Metoprolol Succinate XL TAB* 25 MG PO SCH ×2 (09:37→20:28)
[2018-05-08] MEDS: Omeprazole CAP* 20 MG PO SCH (09:38)
[2018-05-08] MEDS: BuPROPion XL* 300 MG TAB.XL PO SCH (09:38)
[2018-05-08] MEDS: Gabapentin CAP(*) 300 MG PO SCH ×3 (09:38→20:31)
[2018-05-08] MEDS: Potassium Chlor TAB* 20 MEQ TAB.ER PO SCH (09:39)
[2018-05-08] MEDS: Isosorbide Mononitrate ER TAB* 60 MG PO SCH (09:44)
[2018-05-08] MEDS: Losartan TAB* 25 MG PO SCH (09:47)
[2018-05-08] MEDS: Methocarbamol TAB* 500 MG PO PRN ×2 (12:45→20:32)
[2018-05-08] MEDS: Clopidogrel TAB* 75 MG PO SCH (15:02)
[2018-05-08] MEDS: Aspirin EC TAB* 81 MG TAB.EC PO SCH (15:02)
[2018-05-08] MEDS: Polyethylene Glycol 3350* 17 GM PACKET PO PRN (15:02)
[2018-05-08 16:21] LABS: ABS Basophils 0.1 10^3/ul (0-0.2); ABS Eosinophils 0 10^3/ul (0-0.6); ABS Lymphocytes 1.8 10^3/ul (1.0-4.8); ABS Monocytes 1.2 10^3/ul (0-0.8); ABS Nucleated RBC 0 10^3/ul; Eosinophil % 0.4 % (0-6); Hematocrit 35 % (35-47); Hemoglobin 11.7 g/dl (12.0-16.0); Lymphocyte % 16.4 % (25-47); Mean Corpuscular HGB Conc 33 g/dl (31-36); Mean Corpuscular Hemoglobin 31 pg (27-31); Mean Corpuscular Volume 94 fL (80-97); Mean Platelet Volume 8.3 um3 (7.4-10.4); Nucleated Red Blood Cells % 0; Platelet Count 193 10^3/ul (150-450); Red Blood Count 3.73 10^6/ul (4.00-5.40); Red Cell Distribution Width 17 % (10.5-15); White Blood Count 11.1 10^3/ul (3.5-10.8)
[2018-05-08 16:36] LABS: EGFR Non-African American 53.6 (>60)
[2018-05-08] MEDS: Atorvastatin* 40 MG TAB PO SCH (17:10)
--- NOTE | 2018-05-08 18:17 | CONS ---
CC: Dr. Diez; Dr. Jerry De La Fuente; Dr. Sade Gordon * CONSULTATION REPORT: DATE OF CONSULT: 05/08/18 CONSULTING PROVIDER: Dr. Diez. MY ATTENDING WHILE IN THE HOSPITAL: Dr. Jerry De La Fuente. PRIMARY CARE PROVIDER: Dr. Sade Gordon REASON FOR CONSULTATION: Co-management of comorbid medical conditions, status post spinal surgery. HISTORY OF PRESENT ILLNESS: Ms. Randhawa is a 71-year-old female with past medical history significant for coronary artery disease, status post 14 stents; type 1 diabetes mellitus, on insulin pump; sick sinus syndrome; diastolic heart failure; hyperlipidemia; hypertension and lumbar spinal stenosis who is currently admitted, status post L2-L3 decompression with Dr. Diez, complicated by CSF leak with initial headache, particularly with sitting up and persistent lower extremity pain shooting down her the back of her legs bilaterally with left lower extremity weakness, particularly with hip flexion and dorsiflexion of the foot. The patient states the patient has gotten worse since her surgery and has significantly changed in character. The patient denies saddle anesthesia, loss of bowel control. The patient has a Aslmeron catheter inserted. The patient denies fevers, chills, nausea, vomiting. The patient has not had a headache since yesterday. The patient denies chest pain, shortness of breath. The patient has not had bowel movement in 3 days. The patient is currently on Amitiza and MiraLAX, which she has not been receiving while in the hospital. The patient is currently on significant amount of opioid pain medication as well as muscle relaxants. The patient's blood sugars have been moderately well controlled. The patient takes Januvia and metformin at home. The patient has an insulin pump, which implies both carb counting and sliding scale with an unknown predetermined ratio, which is controlled by the patient's violin maker hand, Dr. Durbin in [place]. This information sign will be found on the patient's insulin pump. The patient's blood pressure has been low at 85/73 and then 99/36 today. The patient had no other episodes of hypotension. The patient is currently asymptomatic. The patient was able to stand up with physical therapy, but was unable to participate meaningfully due to pain. The patient did not take her clopidogrel 5 days prior to surgery and took her aspirin up until surgery. PAST MEDICAL HISTORY: Coronary artery disease, status post 14 stents, normal stress test in November 2017; sick sinus syndrome, status post pacemaker; diastolic congestive heart failure; hyperlipidemia; hypertension; diabetes mellitus type 1; history of thyroid carcinoma, status post thyroidectomy, postsurgical hypothyroidism; GERD; depression; morbid obesity; peripheral neuropathy; COPD; lumbar spinal stenosis; previous decompression at L4-L5 and L5 -S1. MEDICATIONS: Reconciliation for this hospitalization: 1. Levothyroxine 200 mcg p.o. q.a.m. 2. Metformin 1000 mg p.o. b.i.d. 3. Insulin lispro 125 units subcutaneous daily via insulin pump. 4. Aspirin 81 mg p.o. q.a.m. 5. Nitroglycerin 0.4 mg sublingual q.5 minutes as needed. 6. Amitiza 8 mcg p.o. q.12 hours. 7. Metoprolol succinate 25 mg p.o. b.i.d. 8. Gabapentin 600 mg p.o. t.i.d. 9. Januvia 100 mg p.o. q.a.m. 10. Vitamin D 2000 units p.o. q.a.m. 11. Symbicort 1 puff inhalation b.i.d. 12. Bupropion 300 mg p.o. q.a.m. 13. Amlodipine 5 mg p.o. q.a.m. 14. Losartan 200 mg p.o. q.a.m. 15. Rosuvastatin 20 mg p.o. q.p.m. 16. Nexium 40 mg p.o. q.a.m. 17. Ranolazine 1000 mg p.o. b.i.d. 18. Imdur 60 mg p.o. q.a.m. 19. Tramadol 50 mg p.o. b.i.d. 20. Albuterol 2 puffs inhalation q.4 hours as needed. 21. Potassium chloride 20 mEq p.o. q.a.m. 22. Furosemide 20 mg p.o. q.a.m. 23. Clopidogrel 75 mg p.o. q.a.m. ALLERGIES: MORPHINE, PENICILLIN, RIFAXIMIN. FAMILY HISTORY: Based on previous records, the patient's mother was in her 80s from stroke. The patient's father of lung cancer in 60s. The patient had a brother who had OK in his 50s as well as a brother with a coronary artery disease and a sister with pacemaker. SOCIAL HISTORY: The patient lives with her , Lucas. The patient had a significant 50-year smoking history, quit smoking 16 years ago. The patient denies alcohol or drug use. The patient would like her surrogate decision maker to be her , Lucas. REVIEW OF SYSTEMS: A 14-point review of systems was reviewed and is negative, except as above in the HPI. PHYSICAL EXAMINATION: General: The patient is a 72-year-old female, who appears her stated age, sitting in the bed, in moderate distress from increased pain. Vitals: At the time of evaluation, temperature 98.9, pulse rate 62, respiratory rate 19, oxygen saturation 92% on room air, blood pressure 99/36. HEENT: Head is normocephalic, atraumatic. Sclerae anicteric. No conjunctival injection. Oral mucosa dry. No pharyngeal erythema, discharge or exudate. Neck: Supple, nontender. No lymphadenopathy. No carotid bruit auscultated. Scars consistent with previous thyroidectomy. No JVD. Cardiac: Regular rate and rhythm. No clicks, murmurs, gallops or rubs. Pulses are 2+ in the bilateral dorsalis pedis, posterior tibialis and radial areas. Trace edema in the bilateral lower extremities. Respiratory: Clear to auscultation bilaterally. No wheezes, rales or rhonchi. Good air exchange bilaterally. Abdomen: Soft, nontender, nondistended. Bowel sounds present and hypoactive in all 4 quadrants. No hepatosplenomegaly. No abdominal bruits auscultated. No hepatojugular reflux. Skin: Surgical incision in the lower back not visualized due to pain. No other rash or ulcers. Genitourinary: Salmeron catheter in place draining clear yellow urine. No suprapubic or CVA tenderness. Neuro: Cranial nerves II through XII intact. 4-/5 strength with hip flexion and foot dorsiflexion in the left leg, 5/5 in the right leg. No other focal deficits. No baseline decrease in sensation to light touch bilateral feet. Reflexes 1+ in bilateral biceps and Achilles areas and not detectable in bilateral patellar areas. Psychiatric: Pleasant and cooperative. ASSESSMENT AND PLAN/IMPRESSION: Ms. Randhawa is a 72-year-old female with past medical history significant for type 1 diabetes mellitus; coronary artery disease, status post 14 stents; history of sick sinus syndrome; history of diastolic congestive heart failure; hypertension; hyperlipidemia and lumbar spinal stenosis who is status post L2-L3 decompression surgery. The patient has had relatively uncontrolled blood sugars and significantly increased pain in her left lower extremity after surgery as well as headaches related to a spinal leak. 1. Postoperative state management per primary team. The patient has new weakness and pain in her left lower extremity to my exam. This has been discussed with the primary team and steroids will not be instituted at this time. It is unlikely the patient will need repeat surgery. The patient's headache has resolved likely due to resolution of the CSF leak. Continue pain control, bowel regimen of Amitiza, docusate, MiraLAX and Temodar. We will order labs to monitor for acute blood loss anemia as well as acute kidney injury and other postoperative complications. Physical therapy and occupational therapy when tolerated. 2. Coronary artery disease, status post 14 stents. The patient had a preoperative clearance from her outpatient trust advisor, Dr. Bebeto Perez who stated that she should not have her aspirin stopped and should have her Plavix resumed as soon as possible after surgery. This will be resumed today. Continue statin, amlodipine, Imdur, losartan, metoprolol, nitroglycerin as needed and ranolazine. 3. History of sick sinus syndrome, status post pacemaker. It is noted the patient is in paced rhythm on telemetry monitoring. Continue telemetry monitoring. 4. History of diastolic congestive heart failure. The patient appears euvolemic. We will use fluids judiciously. The patient is eating and drinking well. No shortness of breath. 5. Diabetes mellitus type 1. The patient's blood glucoses have been between 173 and 356. Continue control with the patient's insulin pump. The patient takes Januvia and metformin at home. Januvia will be continued at this time and metformin will be resumed after results of BMP are available to assess for acute kidney injury. The patient has not received contrast during this hospitalization. 6. History of thyroid carcinoma. Postsurgical hypothyroidism. Continue levothyroxine. 7. Gastroesophageal reflux disease. The patient will be switched to pantoprazole from home. Nexium while in the hospital. We would recommend this be a long-term change due to interaction between clopidogrel and esomeprazole, which decreases the effectiveness, which is an important interaction due to the patient's numerous stents. 8. Constipation. Continue Amitiza, MiraLAX, docusate and tea. Encouraged ambulation when tolerated. 9. Depression. Continue bupropion. 10. Peripheral neuropathy. Continue gabapentin. 11. Chronic obstructive pulmonary disease. Continue Symbicort. 12. DVT prophylaxis. SCDs only at this time. 13. FEN. The patient will have a consistent carbohydrate diet with no fluids indicated at this time. 14. Disposition. The patient is admitted inpatient. Disposition per primary team. TIME SPENT: Approximately 75 minutes were spent on this consult, 45 of which was spent [id number] with the patient obtaining history and physical and discussing treatment plan. Thank you very much for this consult. SHARON BATISTA [id number]/[facility] #: [id number] MAGALY
[2018-05-08] MEDS: Docusate CAP* 100 MG PO SCH (20:28)
[2018-05-08] MEDS: metFORMIN* 1,000 MG TAB PO SCH (20:30)
[2018-05-08] MEDS: NF:Lubiprostone (NF) 8 MCG CAP PO SCH (21:42)
[2018-05-09] MEDS: Methocarbamol TAB* 500 MG PO PRN ×2 (04:44→13:32)
[2018-05-09] MEDS: Levothyroxine TAB* 100 MCG TAB PO SCH (06:03)
[2018-05-09] MEDS: traMADol TAB* 50 MG PO PRN ×3 (06:04→16:49)
--- NOTE | 2018-05-09 07:39 | PN ---
Progress Note - Progress Note Date of Service: 05/09/18 SOAP: Subjective: []POD # 3 C/O leg pain LT > RT Having difficulty with transfers No c/o headache Objective: []Dressing dry Wound flat Neuro intact Assessment: []Very slow progress Plan: []Cont to mobilize
[2018-05-09] MEDS: Mometasone/Formoter 200/5 MDI INH SCH ×2 (08:12→19:44)
[2018-05-09] MEDS ORDERED: Clopidogrel TAB* 75 MG PO SCH (09:00)
[2018-05-09] MEDS: Losartan TAB* 25 MG PO SCH (10:16)
[2018-05-09] MEDS: Docusate CAP* 100 MG PO SCH ×2 (10:17→21:42)
[2018-05-09] MEDS: Gabapentin CAP(*) 300 MG PO SCH ×3 (10:17→21:43)
[2018-05-09] MEDS: Metoprolol Succinate XL TAB* 25 MG PO SCH ×2 (10:18→22:03)
[2018-05-09] MEDS: Aspirin EC TAB* 81 MG TAB.EC PO SCH (10:18)
[2018-05-09] MEDS: Potassium Chlor TAB* 20 MEQ TAB.ER PO SCH (10:18)
[2018-05-09] MEDS: amLODIPine TAB* 5 MG PO SCH (10:18)
[2018-05-09] MEDS: Furosemide TAB* 20 MG PO SCH (10:18)
[2018-05-09] MEDS: metFORMIN* 1,000 MG TAB PO SCH (10:18)
[2018-05-09] MEDS: Clopidogrel TAB* 75 MG PO SCH (10:18)
[2018-05-09] MEDS: CMC:Ranolazine (NF) 500 MG TAB PO SCH ×2 (10:40→22:03)
[2018-05-09] MEDS: Acetaminophen TAB* 325 MG PO PRN ×2 (10:40→20:01)
[2018-05-09] MEDS: Isosorbide Mononitrate ER TAB* 60 MG PO SCH (10:40)
[2018-05-09] MEDS: CMC:SitaGLIPtin (NF) 100 MG TAB PO SCH (10:40)
[2018-05-09] MEDS: BuPROPion XL* 300 MG TAB.XL PO SCH (10:41)
[2018-05-09] MEDS: NF:Lubiprostone (NF) 8 MCG CAP PO SCH ×2 (10:41→22:08)
[2018-05-09] MEDS: CMC:Pantoprazole TAB (NF) 40 MG TAB PO SCH (10:41)
--- NOTE | 2018-05-09 13:54 | PN ---
Subjective Date of Service: 05/09/18 Interval History: Patient is continuing to have significant pain B/L LE and groin. Patient also has feeling of constipation and has not had a BM in 4 days. Patient denies CP, SOB, N/V, Dizziness, Palpitations, F/C, new weakness, numbness or tingling, saddle anesthesia, or loss of bowel or bladder control. Family History: Unchanged from Admission Social History: Unchanged from Admission Past Medical History: Unchanged from Admission Objective Active Medications: Acetaminophen (Tylenol Tab*) 650 mg PO Q4H PRN PRN Reason: PAIN Last Admin: 05/09/18 10:40 Dose: 650 mg Albuterol (Ventolin Hfa Inhaler*) 2 puff INH Q4HR PRN PRN Reason: Asthma Last Admin: 05/07/18 08:16 Dose: 2 puff Amlodipine Besylate (Norvasc Tab*) 5 mg PO QAM [facility] Last Admin: 05/09/18 10:18 Dose: 5 mg Aspirin (Aspirin Ec Tab*) 81 mg PO DAILY [facility] Last Admin: 05/09/18 10:18 Dose: 81 mg Atorvastatin Calcium (Lipitor*) 40 mg PO QPM [facility]; Protocol Last Admin: 05/08/18 17:10 Dose: 40 mg Bupropion HCl ([facility]ion Xl*) [facility] Last Admin: 05/09/18 10:41 Dose: 300 mg Clopidogrel Bisulfate (Plavix Tab*) 75 mg PO DAILY [facility] Last Admin: 05/09/18 10:18 Dose: 75 mg Docusate Sodium (Colace Cap*) 200 mg PO BID [facility] Last Admin: 05/09/18 10:17 Dose: 200 mg Furosemide (Lasix Tab*) 20 mg PO QAM [facility] Last Admin: 05/09/18 10:18 Dose: 20 mg Gabapentin (Neurontin Cap(*)) 600 mg PO TID [facility] Last Admin: 05/09/18 13:31 Dose: 600 mg Isosorbide Mononitrate (Imdur Er Tab*) 60 [facility] Last Admin: 05/09/18 10:40 Dose: 60 mg Levothyroxine Sodium (Synthroid Tab*) 200 mcg PO 0600 [facility] Last Admin: 05/09/18 06:03 Dose: 200 mcg Losartan Potassium (Cozaar Tab*) 100 mg PO DAILY [facility] Last Admin: 05/09/18 10:16 Dose: 100 mg Lubiprostone (Amitiza (Nf)) 8 mcg PO Q12HR [facility] Last Admin: 05/09/18 10:41 Dose: Not Given Metformin HCl (Glucophage*) 1,000 mg PO BID [facility] Last Admin: 05/09/18 10:18 Dose: 1,000 mg Methocarbamol (Robaxin Tab*) 500 mg PO TID PRN PRN Reason: muscle spasms Last Admin: 05/09/18 13:32 Dose: 500 mg Metoprolol Succinate (Toprol Xl Tab*) 25 mg PO BID [facility] Last Admin: 05/09/18 10:18 Dose: 25 mg Mometasone Furoate/Formoterol Fumar (Dulera 200/5 Mdi*) 2 puff INH BID [facility]; Protocol Last Admin: 05/09/18 08:12 Dose: 2 puff Nitroglycerin (Nitroglycerin Tab 0.4 Mg*) 0.4 mg SL Q5M PRN PRN Reason: PAIN - CHEST Ondansetron HCl (Zofran 40 Mg Vial*) 4 mg IV Q6H PRN PRN Reason: NAUSEA/VOMITING Pantoprazole Sodium (Protonix Tab (Nf)) 40 mg PO DAILY [facility] Last Admin: 05/09/18 10:41 Dose: 40 mg Polyethylene Glycol/Electrolytes (Miralax*) 17 gm PO DAILY PRN PRN Reason: CONSTIPATION Last Admin: 05/08/18 15:02 Dose: 17 gm Potassium Chloride (Klor Con Er Tab*) 20 meq PO QAM [facility] Last Admin: 05/09/18 10:18 Dose: 20 meq Ranolazine (Ranexa (Nf)) 1,000 mg PO BID [facility] Last Admin: 05/09/18 10:40 Dose: 1,000 mg Sitagliptin Phosphate (Januvia (Nf)) 100 mg PO QAM [facility]; Protocol Last Admin: 05/09/18 10:40 Dose: 100 mg Tramadol HCl (Ultram*) 50 mg PO Q4H PRN PRN Reason: PAIN Last Admin: 05/09/18 10:16 Dose: 50 mg Vital Signs - 8 hr 05/09/18 05/09/18 05/09/18 06:04 07:45 08:12 Temperature 98.4 F Pulse Rate 60 79 Respiratory 18 16 14 Rate Blood Pressure 110/36 (mmHg) O2 Sat by Pulse 93 93 Oximetry 05/09/18 05/09/18 05/09/18 08:16 10:16 10:17 Temperature Pulse Rate Respiratory 16 18 18 Rate Blood Pressure (mmHg) O2 Sat by Pulse Oximetry 05/09/18 05/09/18 05/09/18 10:36 12:09 13:31 Temperature Pulse Rate Respiratory 18 18 18 Rate Blood Pressure (mmHg) O2 Sat by Pulse Oximetry 05/09/18 13:32 Temperature Pulse Rate Respiratory 18 Rate Blood Pressure (mmHg) O2 Sat by Pulse Oximetry Oxygen Devices in Use Now: None Appearance: Patient is a 72yo female who appears stated age and is sitting in the chair in NAD. Eyes: No Scleral Icterus, PERRLA Ears/Nose/Mouth/Throat: NL Teeth, Lips, Gums, Clear Oropharnyx, Mucous Membranes Moist Neck: NL Appearance and Movements; NL JVP, Trachea Midline Respiratory: Symmetrical Chest Expansion and Respiratory Effort, Clear to Auscultation Cardiovascular: NL Sounds; No Murmurs; No JVD, RRR, No Edema Abdominal: No Hepatosplenomegaly, - - Hypoactive bowel sounds. Lymphatic: No Cervical Adenopathy Extremities: No Edema, No Clubbing, Cyanosis Skin: No Rash or Ulcers, No Nodules or Sclerosis Neurological: Alert and Oriented x 3, NL Sensation, - - CN II-XII intact. Result Diagrams: 05/08/18 16:06 05/08/18 16:06 Assess/Plan/Problems-Billing Assessment: Patient is a 72yo female with a PMH for CAD, DM I, CHF, SSS, HLD, HTN, COPD here after a lumbar decompression complicated by CSF leak which has resolved who still has uncontrolled pain. Patient initially had uncontrolled blood sugars which have improved with the reintroduction of oral medications. - Patient Problems (1) Post-operative state Current Visit: Yes Status: Acute Code(s): Z98.890 - OTHER SPECIFIED POSTPROCEDURAL STATES SNOMED Code(s): 63879975 Comment: Managment per primary team. Monitor H/H. VSS. Pain uncontrolled. Unable to tolerate steroids. Complicated by CSF leak. Bowel regimen with Miralax, Docusate , Amitizia if available, and Senna. Salmeron removed without urination yet. (2) CAD (coronary artery disease) Current Visit: No Status: Acute Code(s): I25.10 - ATHSCL HEART DISEASE OF [place] CORONARY ARTERY W/O ANG PCTRS SNOMED Code(s): 61894916 Comment: No CP. Continue ASA, Plavix, Ranolazine, Atorvastatin, Metoprolol, Losartan, and Imdur. S/P 14 stents. (3) Diabetes Current Visit: No Status: Acute Code(s): E11.9 - TYPE 2 DIABETES MELLITUS WITHOUT COMPLICATIONS SNOMED Code(s): 95777716 Comment: Continue insulin pump with current settings and Januvia and metformin. Improved control after reintroduction of oral meds. (4) COPD (chronic obstructive pulmonary disease) Current Visit: Yes Status: Acute Code(s): J44.9 - CHRONIC OBSTRUCTIVE PULMONARY DISEASE, UNSPECIFIED SNOMED Code(s): 23213282 Comment: No exacerbation. Continue dulera and albuterol. (5) HLD (hyperlipidemia) Current Visit: Yes Status: Acute Code(s): E78.5 - HYPERLIPIDEMIA, UNSPECIFIED SNOMED Code(s): 50151836 Comment: Continue Lipitor. (6) Postsurgical hypothyroidism Current Visit: Yes Status: Acute Code(s): E89.0 - POSTPROCEDURAL HYPOTHYROIDISM SNOMED Code(s): 80252388 Comment: Continue levothyroxine. (7) GERD (gastroesophageal reflux disease) Current Visit: No Status: Acute Code(s): K21.9 - GASTRO-ESOPHAGEAL REFLUX DISEASE WITHOUT ESOPHAGITIS SNOMED Code(s): 541155538 Comment: Continue Omeprazole. (8) HTN (hypertension) Current Visit: No Status: Acute Code(s): I10 - ESSENTIAL (PRIMARY) HYPERTENSION SNOMED Code(s): 96209871 Comment: Normotensive. Continue medications as above. (9) DVT prophylaxis Current Visit: No Status: Acute Code(s): CGI0492 - SNOMED Code(s): 029594510 Comment: Heparin SubQ. SCDs (10) Full code status Current Visit: No Status: Acute Code(s): Z78.9 - OTHER SPECIFIED HEALTH STATUS SNOMED Code(s): 969713969 Status and Disposition: Inpatient. Disposition per primary team.
[2018-05-09] MEDS: Atorvastatin* 40 MG TAB PO SCH (16:49)
[2018-05-09] MEDS: Senna TAB PO PRN (16:49)
[2018-05-09] MEDS ORDERED: LORazepam INJ* 2 MG/ML 1 ML VIAL IV PUSH PRN (18:01)
--- NOTE | 2018-05-09 18:33 | RAD ---
Indication: Mental status change. Shivering. Comparison: December 09, 2017 CT. Technique: Upright AP 1814 hours mild prominence of interstitial markings. Mild patchy alveolar infiltrate throughout the RIGHT upper lung zone. Negative for pleural effusion or pneumothorax. RIGHT atrial and RIGHT ventricular level pacemaker leads. Probable RIGHT coronary artery stent. Negative for cardiomegaly. Unremarkable central pulmonary vasculature. Negative for free air beneath the diaphragm. Report: Suggestion of mild alveolar infiltrate at the RIGHT upper lung zone concerning for pneumonia.
[2018-05-09 18:36] LABS: ABS Basophils 0.1 10^3/ul (0-0.2); ABS Eosinophils 0 10^3/ul (0-0.6); ABS Lymphocytes 1.4 10^3/ul (1.0-4.8); ABS Monocytes 1.2 10^3/ul (0-0.8); ABS Neutrophils 11.2 10^3/ul (1.5-7.7); ABS Nucleated RBC 0 10^3/ul; Eosinophil % 0.2 % (0-6); Hematocrit 39 % (35-47); Lymphocyte % 10.1 % (25-47); Mean Corpuscular HGB Conc 34 g/dl (31-36); Mean Corpuscular Hemoglobin 32 pg (27-31); Mean Corpuscular Volume 94 fL (80-97); Mean Platelet Volume 8.3 um3 (7.4-10.4); Nucleated Red Blood Cells % 0; Platelet Count 205 10^3/ul (150-450); Red Blood Count 4.09 10^6/ul (4.00-5.40); Red Cell Distribution Width 17 % (10.5-15); White Blood Count 13.9 10^3/ul (3.5-10.8)
[2018-05-09 18:48] LABS: EGFR Non-African American 47.1 (>60)
[2018-05-09] MEDS ORDERED: Dextrose 50% Syringe 50 ML* 25 GM/50 ML SYRINGE IV PUSH PRN (18:56)
[2018-05-09 18:57] LABS: Urine Appearance Clear; Urine Blood Negative (Negative); Urine Color Yellow; Urine Ketones Negative (Negative); Urine Protein 1+(30 mg/dL) (Negative); Urine Red Blood Cell Absent (Absent); Urine Specific Gravity 1.016 (1.010-1.030); Urine Urobilinogen Negative (Negative); Urine White Blood Cell Trace(0-5/hpf) (Absent)
[2018-05-09] MEDS: NS 0.9% 1000 ML* 1,000 ML IV SCH (19:51)
[2018-05-09] MEDS: cefTRIAXone(*) 1 GM in NS 0.9% 50 ML* 50 ML IVPB SCH (19:57)
--- NOTE | 2018-05-09 20:03 | PN ---
Hospitalist Progress Note Date of Service: 05/09/18 Paged at 1755 for tremors and subjective chills. At that time patient was alert and fully oriented with blood sugar consistent with previous. Due to chills and post-operative state Septic workup was obtained including urinalysis, CXR, Blood Cultures, and lactic acid obtained. CXR showed infiltrate and CAP treatment started. Lactic acid 2.2, fluids started and metformin stopped in the setting of worsening renal function. Paged again at 1374 for mental status change. Patient was still talking and alert but confused about details or where she is. Tremor decreased and patient not as subjectively cold. FSBG 90. AMS likely due to hypoglycemia. No vital sign abnormalities. Given juice and instructed to recheck Q1H for 3 hours. Insulin Pump discontinued and SSI ordered Q4H as well as carbohydrate counting for meals. Discussed Case with Dr. Miller the Event Specialist Food Demonstrator.
[2018-05-09] MEDS ORDERED: Insulin LISPRO* 1 UNITS UNIT SUBCUT SCH (21:00)
[2018-05-09] MEDS: Insulin LISPRO* 1 UNITS UNIT SUBCUT SCH (21:40)
[2018-05-09] MEDS: Azithromycin IV(*) 500 MG in NS 0.9% 250 ML* 250 ML IVPB SCH (21:53)
[2018-05-10] MEDS: Insulin LISPRO* 1 UNITS UNIT SUBCUT SCH ×9 (02:49→21:52)
[2018-05-10] MEDS ORDERED: Insulin LISPRO* 1 UNITS UNIT SUBCUT ONE ×2 (05:13→06:00)
[2018-05-10] MEDS: Senna TAB PO PRN (05:20)
[2018-05-10] MEDS: traMADol TAB* 50 MG PO PRN ×4 (05:21→22:17)
[2018-05-10] MEDS: Levothyroxine TAB* 100 MCG TAB PO SCH (05:21)
[2018-05-10] MEDS: Mometasone/Formoter 200/5 MDI INH SCH ×2 (07:52→19:15)
[2018-05-10] MEDS: NS 0.9% 1000 ML* 1,000 ML IV SCH (09:00)
[2018-05-10] MEDS: Gabapentin CAP(*) 300 MG PO SCH ×3 (09:01→21:35)
[2018-05-10] MEDS: Clopidogrel TAB* 75 MG PO SCH (09:02)
[2018-05-10] MEDS: BuPROPion XL* 300 MG TAB.XL PO SCH (09:02)
[2018-05-10] MEDS: Docusate CAP* 100 MG PO SCH ×2 (09:02→21:35)
[2018-05-10] MEDS: Aspirin EC TAB* 81 MG TAB.EC PO SCH (09:02)
[2018-05-10] MEDS: Losartan TAB* 25 MG PO SCH (09:02)
[2018-05-10] MEDS: Furosemide TAB* 20 MG PO SCH (09:02)
[2018-05-10] MEDS: Potassium Chlor TAB* 20 MEQ TAB.ER PO SCH (09:02)
[2018-05-10] MEDS: CMC:Ranolazine (NF) 500 MG TAB PO SCH ×2 (09:02→22:05)
[2018-05-10] MEDS: CMC:Pantoprazole TAB (NF) 40 MG TAB PO SCH (09:02)
[2018-05-10] MEDS: CMC:SitaGLIPtin (NF) 100 MG TAB PO SCH (09:03)
[2018-05-10] MEDS: Isosorbide Mononitrate ER TAB* 60 MG PO SCH (09:03)
[2018-05-10] MEDS: Acetaminophen TAB* 325 MG PO PRN ×3 (09:03→19:14)
[2018-05-10] MEDS: Metoprolol Succinate XL TAB* 25 MG PO SCH ×2 (09:03→21:51)
[2018-05-10] MEDS: Polyethylene Glycol 3350* 17 GM PACKET PO PRN (09:03)
[2018-05-10] MEDS: amLODIPine TAB* 5 MG PO SCH (09:07)
[2018-05-10] MEDS: NF:Lubiprostone (NF) 8 MCG CAP PO SCH (09:14)
[2018-05-10] MEDS: Bisacodyl SUPP* 10 MG SUPP PR PRN (09:32)
[2018-05-10] MEDS: LUBIPROSTONE 8 MCG PO SCH ×2 (12:29→22:05)
[2018-05-10] MEDS: Atorvastatin* 40 MG TAB PO SCH (17:56)
--- NOTE | 2018-05-10 18:03 | PN ---
Subjective Date of Service: 05/10/18 Interval History: Patient reports she is doing better today but getting OOB was "exhausting and now I am very tired". She did get OOB with PT and walked around the room and did well and sat in a chair for a while, she did have to be put back in bed with the easy stand. She reports now she is exhausted. She denies any LE numbness, tingling, loss of bowel/bladder. Good ROM in LEs. Per her confusion that was present yesterday has resolved. reports her appetite is improving. no SOB/CP, orthopnea. No LE edema. Family History: Unchanged from Admission Social History: Unchanged from Admission Past Medical History: Unchanged from Admission Objective Active Medications: Acetaminophen (Tylenol Tab*) 650 mg PO Q4H PRN PRN Reason: PAIN Last Admin: 05/10/18 15:02 Dose: 650 mg Albuterol (Ventolin Hfa Inhaler*) 2 puff INH Q4HR PRN PRN Reason: Asthma Last Admin: 05/07/18 08:16 Dose: 2 puff Amlodipine Besylate (Norvasc Tab*) 5 mg PO QAM [facility] Last Admin: 05/10/18 09:07 Dose: 5 mg Aspirin (Aspirin Ec Tab*) 81 mg PO DAILY [facility] Last Admin: 05/10/18 09:02 Dose: 81 mg Atorvastatin Calcium (Lipitor*) 40 mg PO QPM [facility]; Protocol Last Admin: 05/09/18 16:49 Dose: 40 mg Bisacodyl (Dulcolax Supp*) 10 mg [place] DAILY PRN PRN Reason: CONSTIPATION Last Admin: 05/10/18 09:32 Dose: 10 mg Bupropion HCl (Bupropion Xl*) 300 mg PO QAM [facility] Last Admin: 05/10/18 09:02 Dose: 300 mg Clopidogrel Bisulfate (Plavix Tab*) 75 mg PO DAILY [facility] Last Admin: 05/10/18 09:02 Dose: 75 mg Dextrose (D50w Syringe 50 Ml*) 12.5 gm IV PUSH .FOR FS < 60 - SS PRN PRN Reason: FS < 60 Docusate Sodium (Colace Cap*) 200 mg PO BID [facility] Last Admin: 05/10/18 09:02 Dose: 200 mg Furosemide (Lasix Tab*) 20 mg PO QAM [facility] Last Admin: 05/10/18 09:02 Dose: 20 mg Gabapentin (Neurontin Cap(*)) 600 mg PO TID [facility] Last Admin: 05/10/18 15:02 Dose: 600 mg Ceftriaxone Sodium 1 gm/ (Sodium Chloride) 50 mls @ 200 mls/hr IVPB Q24H [facility] Last Admin: 05/09/18 19:57 Dose: 200 mls/hr Azithromycin 500 mg/ Sodium (Chloride) 250 mls @ 250 mls/hr IVPB Q24H [facility] Last Admin: 05/09/18 21:53 Dose: 250 mls/hr Sodium Chloride (Ns 0.9% 1000 Ml*) 1,000 mls @ 100 mls/hr IV PER RATE [facility] Last Admin: 05/10/18 09:00 Dose: 100 mls/hr Insulin Human Lispro (Humalog*) 0 units SUBCUT ACHS [facility]; Protocol Last Admin: 05/10/18 14:59 Dose: 9 units Insulin Human Lispro (Humalog*) 0 units SUBCUT AC [facility]; Protocol Last Admin: 05/10/18 15:01 Dose: 6 unit Isosorbide Mononitrate (Imdur Er Tab*) 60 mg PO QAM [facility] Last Admin: 05/10/18 09:03 Dose: 60 mg Levothyroxine Sodium (Synthroid Tab*) 200 mcg PO 0600 [facility] Last Admin: 05/10/18 05:21 Dose: 200 mcg Lorazepam (Ativan Inj*) 0.5 mg IV PUSH Q4H PRN PRN Reason: ANXIETY Losartan Potassium (Cozaar Tab*) 100 mg PO DAILY [facility] Last Admin: 05/10/18 09:02 Dose: 100 mg Lubiprostone (Amitiza (Nf)) 8 mcg PO Q12HR [facility] Last Admin: 05/10/18 12:29 Dose: 8 mcg Methocarbamol (Robaxin Tab*) 500 mg PO TID PRN PRN Reason: muscle spasms Last Admin: 05/09/18 13:32 Dose: 500 mg Metoprolol Succinate (Toprol Xl Tab*) 25 mg PO BID [facility] Last Admin: 05/10/18 09:03 Dose: 25 mg Mometasone Furoate/Formoterol Fumar (Dulera 200/5 Mdi*) 2 puff INH BID [facility]; Protocol Last Admin: 05/10/18 07:52 Dose: 2 puff Nitroglycerin (Nitroglycerin Tab 0.4 Mg*) 0.4 mg SL Q5M PRN PRN Reason: PAIN - CHEST Ondansetron HCl (Zofran 40 Mg Vial*) 4 mg IV Q6H PRN PRN Reason: NAUSEA/VOMITING Pantoprazole Sodium (Protonix Tab (Nf)) 40 mg PO DAILY [facility] Last Admin: 05/10/18 09:02 Dose: 40 mg Polyethylene Glycol/Electrolytes (Miralax*) 17 gm PO DAILY PRN PRN Reason: CONSTIPATION Last Admin: 05/10/18 09:03 Dose: 17 gm Potassium Chloride (Klor Con Er Tab*) 20 meq PO QAM [facility] Last Admin: 05/10/18 09:02 Dose: 20 meq Ranolazine (Ranexa (Nf)) 1,000 mg PO BID [facility] Last Admin: 05/10/18 09:02 Dose: 1,000 mg Senna (Senokot Tab*) 1 tab PO DAILY PRN PRN Reason: CONSTIPATION Last Admin: 05/10/18 05:20 Dose: 1 tab Sitagliptin Phosphate (Januvia (Nf)) 100 mg PO QAM [facility]; Protocol Last Admin: 05/10/18 09:03 Dose: 100 mg Tramadol HCl (Ultram*) 50 mg PO Q4H PRN PRN Reason: PAIN Last Admin: 05/10/18 12:35 Dose: 50 mg Vital Signs - 8 hr 05/10/18 05/10/18 05/10/18 10:32 11:00 11:25 Temperature 98.1 F Pulse Rate 66 Respiratory 16 16 Rate Blood Pressure 136/47 127/37 (mmHg) O2 Sat by Pulse 94 Oximetry 05/10/18 05/10/18 05/10/18 12:35 14:35 15:02 Temperature Pulse Rate Respiratory 16 16 16 Rate Blood Pressure (mmHg) O2 Sat by Pulse Oximetry 05/10/18 15:18 Temperature 97.8 F Pulse Rate 59 Respiratory 20 Rate Blood Pressure 114/32 (mmHg) O2 Sat by Pulse 99 Oximetry Oxygen Devices in Use Now: Nasal Cannula Appearance: elderly female laying in bed in NAD. A+O x3 Eyes: No Scleral Icterus, PERRLA Ears/Nose/Mouth/Throat: NL Teeth, Lips, Gums, Mucous Membranes Moist Neck: NL Appearance and Movements; NL JVP Respiratory: Symmetrical Chest Expansion and Respiratory Effort, Clear to Auscultation Cardiovascular: NL Sounds; No Murmurs; No JVD, RRR, No Edema Abdominal: NL Sounds; No Tenderness; No Distention, - - obese Extremities: No Edema, No Clubbing, Cyanosis Skin: No Rash or Ulcers, No Nodules or Sclerosis Neurological: Alert and Oriented x 3, NL Sensation, NL Muscle Strength and Tone Lines/Tubes/Other Access: Clean, Dry and Intact Peripheral IV Nutrition: Taking PO's Result Diagrams: 05/09/18 18:24 05/09/18 18:24 Microbiology and Other Data: Microbiology 05/09/18 18:15 Urine Culture - Preliminary Urine Enterococcus Faecalis Assess/Plan/Problems-Billing Assessment: Patient is a 72yo female with a PMH for CAD, DM I, CHF, SSS, HLD, HTN, COPD here after a lumbar decompression complicated by CSF leak which has resolved who still has uncontrolled pain. - Patient Problems (1) Status post lumbar spine surgery for decompression of spinal cord Comment: - complicated with a CSF leak (repaired) - Dispo per NS team - No WAYNE/Nausea - pt OOB today, Little reserve and tired easily - pain controlled (2) Pneumonia Comment: - concern for pneumonia on 05/09 with confusion, leukocytosis, elevated lactic and chest xray showing "suggestion of mild alveolar infiltrate at the right upper lung zone concerning for pneumonia". - yesterday developed confusion, leukocytosis, elevated lactic last night and was started on azithro and ceftriaxone with concerning chest xray. Also has had a positive urine cx that was sent last evening. -Patient is much better today and has had resolution of confusion. On room air. Little reserve. Plan to recheck lactic acid now and send labs in am. - continue NS @ 75 ml/hr - continue ceftriaxone - Blood cx pending (3) ARF (acute renal failure) Comment: - appears to be above baseline, continue IVFs. - Hold lasix - recheck BMP in am (4) UTI (urinary tract infection) Comment: - positive enterococcus UTI, awaiting RADHA and blood cx - continue ceftriaxone, start Vanco - await RADHA (5) Diabetes Comment: - type 2 on insulin pump with Januvia and metformin at home. Insulin pump DC last evening after she was confused (now resolved). Continues to have uncontrolled FSBG. Plan to DC oral med Januvia (metformin already on hold0 and start Lantus this evening. - FSBG AC+HS. (6) COPD (chronic obstructive pulmonary disease) Comment: No exacerbation. Continue dulera and albuterol. (7) HLD (hyperlipidemia) Comment: Continue Lipitor. (8) CAD (coronary artery disease) Comment: No CP. Continue ASA, Plavix, Ranolazine, Atorvastatin, Metoprolol, Losartan, and Imdur. S/P 14 stents. (9) HTN (hypertension) Comment: Normotensive. Continue medications as stated above Hold lasix (10) GERD (gastroesophageal reflux disease) Comment: Continue Omeprazole. (11) DVT prophylaxis Comment: Heparin SubQ. SCDs (12) Full code status Status and Disposition: Inpatient. Disposition per primary team.
[2018-05-10] MEDS: Azithromycin IV(*) 500 MG in NS 0.9% 250 ML* 250 ML IVPB SCH (18:16)
[2018-05-10] MEDS ORDERED: NS 0.9% 1000 ML* 1,000 ML IV SCH ×2 (18:17→19:09)
[2018-05-10] MEDS ORDERED: Vancomycin per Pharmacy* NOTE FOLLOW UP SCH (19:00)
[2018-05-10] MEDS: cefTRIAXone(*) 1 GM in NS 0.9% 50 ML* 50 ML IVPB SCH (19:18)
[2018-05-10] MEDS ORDERED: Insulin GLARGINE(*) 1 UNITS UNIT SUBCUT SCH ×2 (21:00)
[2018-05-10] MEDS ORDERED: Vancomycin(*) 1,500 MG in NS 0.9% 250 ML* 250 ML IVPB ONE (21:00)
[2018-05-10] MEDS: Phenazopyridine TAB* 100 MG PO SCH (21:34)
[2018-05-11] MEDS: traMADol TAB* 50 MG PO PRN ×3 (04:08→17:55)
[2018-05-11] MEDS: Levothyroxine TAB* 100 MCG TAB PO SCH (05:01)
[2018-05-11 05:42] LABS: ABS Basophils 0 10^3/ul (0-0.2); ABS Eosinophils 0 10^3/ul (0-0.6); ABS Lymphocytes 1.3 10^3/ul (1.0-4.8); ABS Monocytes 1.2 10^3/ul (0-0.8); ABS Neutrophils 8.9 10^3/ul (1.5-7.7); ABS Nucleated RBC 0 10^3/ul; Eosinophil % 0.2 % (0-6); Hematocrit 32 % (35-47); Hemoglobin 10.7 g/dl (12.0-16.0); Lymphocyte % 11.2 % (25-47); Mean Corpuscular HGB Conc 34 g/dl (31-36); Mean Corpuscular Hemoglobin 32 pg (27-31); Mean Corpuscular Volume 95 fL (80-97); Mean Platelet Volume 8.7 um3 (7.4-10.4); Nucleated Red Blood Cells % 0; Platelet Count 178 10^3/ul (150-450); Red Blood Count 3.39 10^6/ul (4.00-5.40); Red Cell Distribution Width 16 % (10.5-15); White Blood Count 11.4 10^3/ul (3.5-10.8)
[2018-05-11] MEDS: Acetaminophen TAB* 325 MG PO PRN ×2 (05:58→21:02)
[2018-05-11 06:07] LABS: EGFR Non-African American 69.1 (>60)
[2018-05-11] MEDS ORDERED: Vancomycin(*) 1,000 MG in NS 0.9% 250 ML* 250 ML IVPB SCH (09:00)
[2018-05-11] MEDS: Insulin GLARGINE(*) 1 UNITS UNIT SUBCUT SCH (09:33)
[2018-05-11] MEDS: Insulin LISPRO* 1 UNITS UNIT SUBCUT SCH ×7 (09:33→21:06)
[2018-05-11] MEDS: Phenazopyridine TAB* 100 MG PO SCH ×3 (09:34→21:04)
[2018-05-11] MEDS: Metoprolol Succinate XL TAB* 25 MG PO SCH ×2 (09:34→21:03)
[2018-05-11] MEDS: Aspirin EC TAB* 81 MG TAB.EC PO SCH (09:34)
[2018-05-11] MEDS: Potassium Chlor TAB* 20 MEQ TAB.ER PO SCH (09:34)
[2018-05-11] MEDS: Losartan TAB* 25 MG PO SCH (09:34)
[2018-05-11] MEDS: Gabapentin CAP(*) 300 MG PO SCH ×3 (09:35→21:02)
[2018-05-11] MEDS: Clopidogrel TAB* 75 MG PO SCH (09:35)
[2018-05-11] MEDS: amLODIPine TAB* 5 MG PO SCH (09:35)
[2018-05-11] MEDS: Docusate CAP* 100 MG PO SCH ×2 (09:35→21:03)
[2018-05-11] MEDS: LUBIPROSTONE 8 MCG PO SCH ×2 (09:35→21:19)
[2018-05-11] MEDS: BuPROPion XL* 300 MG TAB.XL PO SCH (09:36)
[2018-05-11] MEDS: CMC:Ranolazine (NF) 500 MG TAB PO SCH ×2 (09:37→21:19)
[2018-05-11] MEDS: CMC:Pantoprazole TAB (NF) 40 MG TAB PO SCH (09:37)
[2018-05-11] MEDS: Mometasone/Formoter 200/5 MDI INH SCH ×2 (09:37→19:14)
[2018-05-11] MEDS: Isosorbide Mononitrate ER TAB* 60 MG PO SCH (09:37)
--- NOTE | 2018-05-11 09:56 | PN ---
Subjective Date of Service: 05/11/18 Interval History: Pt c/o pulling pain in her back when she moves left arm. also left leg feels weaker to pt Family History: Unchanged from Admission Social History: Unchanged from Admission Past Medical History: Unchanged from Admission Objective Active Medications: Acetaminophen (Tylenol Tab*) 650 mg PO Q4H PRN PRN Reason: PAIN Last Admin: 05/11/18 05:58 Dose: 650 mg Albuterol (Ventolin Hfa Inhaler*) 2 puff INH Q4HR PRN PRN Reason: Asthma Last Admin: 05/07/18 08:16 Dose: 2 puff Amlodipine Besylate (Norvasc Tab*) 5 mg PO QAM [facility] Last Admin: 05/10/18 09:07 Dose: 5 mg Aspirin (Aspirin Ec Tab*) 81 mg PO DAILY [facility] Last Admin: 05/10/18 09:02 Dose: 81 mg Atorvastatin Calcium (Lipitor*) 40 mg PO QPM [facility]; Protocol Last Admin: 05/10/18 17:56 Dose: 40 mg Bisacodyl (Dulcolax Supp*) 10 mg [place] DAILY PRN PRN Reason: CONSTIPATION Last Admin: 05/10/18 09:32 Dose: 10 mg Bupropion HCl (Bupropion Xl*) 300 mg PO QAM [facility] Last Admin: 05/10/18 09:02 Dose: 300 mg Clopidogrel Bisulfate (Plavix Tab*) 75 mg PO DAILY [facility] Last Admin: 05/10/18 09:02 Dose: 75 mg Dextrose (D50w Syringe 50 Ml*) 12.5 gm IV PUSH .FOR FS < 60 - SS PRN PRN Reason: FS < 60 Docusate Sodium (Colace Cap*) 200 mg PO BID [facility] Last Admin: 05/10/18 21:35 Dose: 200 mg Gabapentin (Neurontin Cap(*)) 600 mg PO TID [facility] Last Admin: 05/10/18 21:35 Dose: 600 mg Heparin Sodium (Porcine) (Heparin Vial(*)) 5,000 units SUBCUT Q8HR [facility] Vancomycin HCl 1,000 mg/ (Sodium Chloride) 250 mls @ 166.667 mls/hr IVPB Q12H [facility] Levofloxacin/Dextrose (Levaquin 500 Mg Ivpremix(*)) 500 mg in 100 mls @ 100 mls /hr IVPB Q24H [facility] Insulin Glargine (Lantus(*)) 30 units SUBCUT Q24H [facility] Insulin Human Lispro (Humalog*) 0 units SUBCUT ACHS [facility]; Protocol Last Admin: 05/10/18 21:52 Dose: 9 units Insulin Human Lispro (Humalog*) 0 units SUBCUT AC [facility]; Protocol Last Admin: 05/10/18 17:58 Dose: 6 unit Isosorbide Mononitrate (Imdur Er Tab*) 60 mg PO QAM [facility] Last Admin: 05/10/18 09:03 Dose: 60 mg Levothyroxine Sodium (Synthroid Tab*) 200 mcg PO 0600 [facility] Last Admin: 05/11/18 05:01 Dose: 200 mcg Lorazepam (Ativan Inj*) 0.5 mg IV PUSH Q4H PRN PRN Reason: ANXIETY Losartan Potassium (Cozaar Tab*) 100 mg PO DAILY [facility] Last Admin: 05/10/18 09:02 Dose: 100 mg Lubiprostone (Amitiza (Nf)) 8 mcg PO Q12HR [facility] Last Admin: 05/10/18 22:05 Dose: 8 mcg Metoprolol Succinate (Toprol Xl Tab*) 25 mg PO BID [facility] Last Admin: 05/10/18 21:51 Dose: 25 mg Mometasone Furoate/Formoterol Fumar (Dulera 200/5 Mdi*) 2 puff INH BID [facility]; Protocol Last Admin: 05/10/18 19:15 Dose: 2 puff Nitroglycerin (Nitroglycerin Tab 0.4 Mg*) 0.4 mg SL Q5M PRN PRN Reason: PAIN - CHEST Ondansetron HCl (Zofran 40 Mg Vial*) 4 mg IV Q6H PRN PRN Reason: NAUSEA/VOMITING Pantoprazole Sodium (Protonix Tab (Nf)) 40 mg PO DAILY [facility] Last Admin: 05/10/18 09:02 Dose: 40 mg Pharmacy Profile Note (Vancomycin Trough Check) 1 note FOLLOW UP ONCE ONE Stop: 05/12/18 08:31 Phenazopyridine HCl (Pyridium Tab*) 100 mg PO TID [facility] Last Admin: 05/10/18 21:34 Dose: 100 mg Polyethylene Glycol/Electrolytes (Miralax*) 17 gm PO DAILY PRN PRN Reason: CONSTIPATION Last Admin: 05/10/18 09:03 Dose: 17 gm Potassium Chloride (Klor Con Er Tab*) 20 meq PO QAM [facility] Last Admin: 05/10/18 09:02 Dose: 20 meq Ranolazine (Ranexa (Nf)) 1,000 mg PO BID [facility] Last Admin: 05/10/18 22:05 Dose: 1,000 mg Senna (Senokot Tab*) 1 tab PO DAILY PRN PRN Reason: CONSTIPATION Last Admin: 05/10/18 05:20 Dose: 1 tab Tramadol HCl (Ultram*) 50 mg PO Q4H PRN PRN Reason: PAIN Last Admin: 05/11/18 04:08 Dose: 50 mg Vital Signs - 8 hr 05/11/18 05/11/18 05/11/18 03:36 04:08 06:13 Temperature 98.8 F Pulse Rate 68 Respiratory 16 18 18 Rate Blood Pressure 152/94 (mmHg) O2 Sat by Pulse 95 Oximetry 05/11/18 05/11/18 07:16 07:49 Temperature 98.0 F Pulse Rate 64 Respiratory 16 16 Rate Blood Pressure 138/46 (mmHg) O2 Sat by Pulse 95 95 Oximetry Oxygen Devices in Use Now: None Appearance: 72 yo F in nAD, aAOx3, poor recall of recent events, was not aware of PNA dx Eyes: No Scleral Icterus, PERRLA Ears/Nose/Mouth/Throat: NL Teeth, Lips, Gums, Mucous Membranes Moist Neck: NL Appearance and Movements; NL JVP, Trachea Midline Respiratory: Symmetrical Chest Expansion and Respiratory Effort, Clear to Auscultation Cardiovascular: NL Sounds; No Murmurs; No JVD, RRR Abdominal: NL Sounds; No Tenderness; No Distention, No Hepatosplenomegaly Lymphatic: No Cervical Adenopathy Extremities: No Edema, No Clubbing, Cyanosis Skin: No Nodules or Sclerosis, - - post op incision covered with dressings in lumbar area-not removed Neurological: Alert and Oriented x 3, - - left LE minimally weaker than R, but also pt is experiencing pain with movement of L LE that may be the reason of subjective weakness Result Diagrams: 05/11/18 05:13 05/11/18 05:13 Microbiology and Other Data: Microbiology 05/09/18 18:15 Urine Culture - Preliminary Urine Enterococcus Faecalis Assess/Plan/Problems-Billing Assessment: Patient is a 72yo female with a PMH for CAD, DM I, CHF, SSS, HLD, HTN, COPD here after a lumbar decompression complicated by CSF leak which has resolved who still has uncontrolled pain. - Patient Problems (1) Hyponatremia Comment: worsening of chronic. will d/c IVF and cont to hold Lasix (2) ARF (acute renal failure) Comment: resolved ofter gentle IVF. will d/c Salmeron today, check post void residuals Lasix held on 05/10/18, will cont to hold, but d/c IVF (3) GERD (gastroesophageal reflux disease) Comment: protonix (4) Pneumonia Comment: Dx of pneumonia on 05/09 with encephalopathy, leukocytosis, elevated lactic and chest xray showing "suggestion of mild alveolar infiltrate at the right upper lung zone concerning for pneumonia". Levaquin started on , Ceftriaxone and Vanc d/c'd (5) UTI (urinary tract infection) Comment: positive enterococcus UTI. Will d/c Vanc/Ceftriaxone and start Levaquin (6) CAD (coronary artery disease) Comment: No CP. Continue ASA, Plavix, Ranolazine, Atorvastatin, Metoprolol, Losartan, and Imdur. S/P 14 stents. (7) Diabetes Comment: - type 2 on insulin pump with Januvia and metformin at home. -insulin pump d/c'd when pt was confused on 05/09/18 -will cont Lantus for now with increased dose -plan to restart insulin pump in AM (8) DVT prophylaxis Comment: Heparin SubQ. SCDs Status and Disposition: Inpatient. Disposition per primary team.
[2018-05-11] MEDS: Levofloxacin 500 MG IVPREMIX(* 500 MG/100 ML BAG IVPB SCH (11:40)
[2018-05-11] MEDS: Heparin VIAL(*) 5000 UNITS/ML VIAL (FIVE THOUSAND) SUBCUT SCH ×2 (13:32→21:20)
[2018-05-11] MEDS ORDERED: Insulin GLARGINE(*) 1 UNITS UNIT SUBCUT ONE (14:26)
--- NOTE | 2018-05-11 14:58 | PN ---
Progress Note - Progress Note Date of Service: 05/11/18 SOAP: Subjective: []Finally beginning to improve Sitting up in chair Had large BM yesterday Still c/o groin spasms with movement Objective: []Dressing dry Neuro intact Catheter in place Assessment: []Making slow post op progress Plan: []Increase activity
[2018-05-11] MEDS: Atorvastatin* 40 MG TAB PO SCH (17:55)
[2018-05-12] MEDS: Heparin VIAL(*) 5000 UNITS/ML VIAL (FIVE THOUSAND) SUBCUT SCH ×3 (05:45→22:07)
[2018-05-12] MEDS: Levothyroxine TAB* 100 MCG TAB PO SCH (05:46)
[2018-05-12] MEDS: traMADol TAB* 50 MG PO PRN ×2 (05:47→16:19)
[2018-05-12 06:11] LABS: ABS Basophils 0 10^3/ul (0-0.2); ABS Eosinophils 0 10^3/ul (0-0.6); ABS Lymphocytes 1.3 10^3/ul (1.0-4.8); ABS Neutrophils 8.5 10^3/ul (1.5-7.7); ABS Nucleated RBC 0 10^3/ul; Eosinophil % 0.3 % (0-6); Hematocrit 32 % (35-47); Hemoglobin 10.6 g/dl (12.0-16.0); Lymphocyte % 11.9 % (25-47); Mean Corpuscular HGB Conc 34 g/dl (31-36); Mean Corpuscular Hemoglobin 32 pg (27-31); Mean Corpuscular Volume 95 fL (80-97); Mean Platelet Volume 8.6 um3 (7.4-10.4); Nucleated Red Blood Cells % 0; Platelet Count 171 10^3/ul (150-450); Red Blood Count 3.33 10^6/ul (4.00-5.40); Red Cell Distribution Width 16 % (10.5-15); White Blood Count 10.8 10^3/ul (3.5-10.8)
[2018-05-12 06:55] LABS: EGFR Non-African American 76.7 (>60)
[2018-05-12] MEDS: Mometasone/Formoter 200/5 MDI INH SCH ×2 (07:43→21:41)
[2018-05-12] MEDS ORDERED: Vancomycin Trough Check NOTE FOLLOW UP ONE (08:30)
[2018-05-12] MEDS: Acetaminophen TAB* 325 MG PO PRN ×2 (09:15→17:56)
[2018-05-12] MEDS: Gabapentin CAP(*) 300 MG PO SCH ×3 (09:16→21:25)
[2018-05-12] MEDS: amLODIPine TAB* 5 MG PO SCH (09:18)
[2018-05-12] MEDS: Aspirin EC TAB* 81 MG TAB.EC PO SCH (09:18)
[2018-05-12] MEDS: BuPROPion XL* 300 MG TAB.XL PO SCH (09:18)
[2018-05-12] MEDS: Clopidogrel TAB* 75 MG PO SCH (09:19)
[2018-05-12] MEDS: Docusate CAP* 100 MG PO SCH ×2 (09:19→21:26)
[2018-05-12] MEDS: Isosorbide Mononitrate ER TAB* 60 MG PO SCH (09:20)
[2018-05-12] MEDS: Losartan TAB* 25 MG PO SCH (09:20)
[2018-05-12] MEDS: LUBIPROSTONE 8 MCG PO SCH ×2 (09:21→21:26)
[2018-05-12] MEDS: CMC:Pantoprazole TAB (NF) 40 MG TAB PO SCH (09:22)
[2018-05-12] MEDS: Metoprolol Succinate XL TAB* 25 MG PO SCH ×2 (09:22→21:25)
[2018-05-12] MEDS: Phenazopyridine TAB* 100 MG PO SCH ×2 (09:23→14:34)
[2018-05-12] MEDS: Potassium Chlor TAB* 20 MEQ TAB.ER PO SCH (09:23)
[2018-05-12] MEDS: Insulin GLARGINE(*) 1 UNITS UNIT SUBCUT SCH (09:24)
[2018-05-12] MEDS: CMC:Ranolazine (NF) 500 MG TAB PO SCH ×2 (09:24→21:26)
--- NOTE | 2018-05-12 09:49 | PN ---
Progress Note - Progress Note Date of Service: 05/12/18 SOAP: Subjective: [S/p L2-3 decompression complicated with CSF leak. Persistent low back incisional pain and intermittent sharp pain in the lower extremities and groin, worse with movement. Was up to chair yesterday, requires assistance. States that she is feeling unwell in general today. Denies headache, nausea, dizziness. ] Objective: [ Vital Signs: Temp Pulse Resp BP Pulse Ox 99.8 F 105 18 153/47 90 05/12/18 07:34 05/12/18 07:34 05/12/18 09:16 05/12/18 07:34 05/12/18 07:34 General: Resting comfortably upon entrance to room. Neuro: Alert and oriented. Speech is clear. Strength 5/5 bilateral dorsiflextion , plantarflexion, quadriceps and hip flexors. Difficulty lifting leg straight off bed. Sensation intact. Incision: Intact and without swelling or drainage. ] Assessment: [Slow progress post-operatively. Will likely require CINDY. ] Plan: [1. Physical therapy 2. Encourage up out of bed to chair at least BID. 3. Continue pain management.]
[2018-05-12] MEDS: Insulin LISPRO* 1 UNITS UNIT SUBCUT SCH ×6 (10:28→17:41)
[2018-05-12] MEDS: Levofloxacin 500 MG IVPREMIX(* 500 MG/100 ML BAG IVPB SCH (10:30)
--- NOTE | 2018-05-12 16:58 | PN ---
Subjective Date of Service: 05/12/18 Interval History: Pt feels better. Needs 2 person assist with walking. Failed Salmeron discontinuation yesterday Family History: Unchanged from Admission Social History: Unchanged from Admission Past Medical History: Unchanged from Admission Objective Active Medications: Acetaminophen (Tylenol Tab*) 650 mg PO Q4H PRN PRN Reason: PAIN Last Admin: 05/12/18 09:15 Dose: 650 mg Albuterol (Ventolin Hfa Inhaler*) 2 puff INH Q4HR PRN PRN Reason: Asthma Last Admin: 05/07/18 08:16 Dose: 2 puff Amlodipine Besylate (Norvasc Tab*) 5 mg PO QAM [facility] Last Admin: 05/12/18 09:18 Dose: 5 mg Aspirin (Aspirin Ec Tab*) 81 mg PO DAILY [facility] Last Admin: 05/12/18 09:18 Dose: 81 mg Atorvastatin Calcium (Lipitor*) 40 mg PO QPM [facility]; Protocol Last Admin: 05/11/18 17:55 Dose: 40 mg Bisacodyl (Dulcolax Supp*) 10 mg [place] DAILY PRN PRN Reason: CONSTIPATION Last Admin: 05/10/18 09:32 Dose: 10 mg Bupropion HCl (Bupropion Xl*) 300 mg PO QAM [facility] Last Admin: 05/12/18 09:18 Dose: 300 mg Clopidogrel Bisulfate (Plavix Tab*) 75 mg PO DAILY [facility] Last Admin: 05/12/18 09:19 Dose: 75 mg Dextrose (D50w Syringe 50 Ml*) 12.5 gm IV PUSH .FOR FS < 60 - SS PRN PRN Reason: FS < 60 Docusate Sodium (Colace Cap*) 200 mg PO BID [facility] Last Admin: 05/12/18 09:19 Dose: 200 mg Gabapentin (Neurontin Cap(*)) 600 mg PO TID [facility] Last Admin: 05/12/18 14:30 Dose: 600 mg Heparin Sodium (Porcine) (Heparin Vial(*)) 5,000 units SUBCUT Q8HR [facility] Last Admin: 05/12/18 14:34 Dose: 5,000 units Levofloxacin/Dextrose (Levaquin 500 Mg Ivpremix(*)) 500 mg in 100 mls @ 100 mls /hr IVPB Q24H [facility] Last Admin: 05/12/18 10:30 Dose: 100 mls/hr Insulin Glargine (Lantus(*)) 30 units SUBCUT Q24H [facility] Last Admin: 05/12/18 09:24 Dose: 30 units Insulin Human Lispro (Humalog*) 0 units SUBCUT ACHS [facility]; Protocol Last Admin: 05/12/18 14:31 Dose: 12 units Insulin Human Lispro (Humalog*) 0 units SUBCUT AC [facility]; Protocol Last Admin: 05/12/18 14:33 Dose: 8 unit Isosorbide Mononitrate (Imdur Er Tab*) 60 mg PO QAM [facility] Last Admin: 05/12/18 09:20 Dose: 60 mg Levothyroxine Sodium (Synthroid Tab*) 200 mcg PO 0600 [facility] Last Admin: 05/12/18 05:46 Dose: 200 mcg Lorazepam (Ativan Inj*) 0.5 mg IV PUSH Q4H PRN PRN Reason: ANXIETY Last Admin: 05/11/18 11:46 Dose: 0.5 mg Losartan Potassium (Cozaar Tab*) 100 mg PO DAILY [facility] Last Admin: 05/12/18 09:20 Dose: 100 mg Lubiprostone (Amitiza (Nf)) 8 mcg PO Q12HR [facility] Last Admin: 05/12/18 09:21 Dose: 8 mcg Metoprolol Succinate (Toprol Xl Tab*) 25 mg PO BID [facility] Last Admin: 05/12/18 09:22 Dose: 25 mg Mometasone Furoate/Formoterol Fumar (Dulera 200/5 Mdi*) 2 puff INH BID [facility]; Protocol Last Admin: 05/12/18 07:43 Dose: 2 puff Nitroglycerin (Nitroglycerin Tab 0.4 Mg*) 0.4 mg SL Q5M PRN PRN Reason: PAIN - CHEST Pantoprazole Sodium (Protonix Tab (Nf)) 40 mg PO DAILY [facility] Last Admin: 05/12/18 09:22 Dose: 40 mg Polyethylene Glycol/Electrolytes (Miralax*) 17 gm PO DAILY PRN PRN Reason: CONSTIPATION Last Admin: 05/10/18 09:03 Dose: 17 gm Potassium Chloride (Klor Con Er Tab*) 20 meq PO QAM [facility] Last Admin: 05/12/18 09:23 Dose: 20 meq Ranolazine (Ranexa (Nf)) 1,000 mg PO BID [facility] Last Admin: 05/12/18 09:24 Dose: 1,000 mg Senna (Senokot Tab*) 1 tab PO DAILY PRN PRN Reason: CONSTIPATION Last Admin: 05/10/18 05:20 Dose: 1 tab Tramadol HCl (Ultram*) 50 mg PO Q4H PRN PRN Reason: PAIN Last Admin: 05/12/18 16:19 Dose: 50 mg Vital Signs - 8 hr 05/12/18 05/12/18 05/12/18 09:16 11:18 14:24 Temperature 97.9 F Pulse Rate 67 Respiratory 18 16 18 Rate Blood Pressure 144/42 (mmHg) O2 Sat by Pulse 93 Oximetry 05/12/18 05/12/18 05/12/18 14:26 14:30 16:19 Temperature Pulse Rate Respiratory 18 18 18 Rate Blood Pressure (mmHg) O2 Sat by Pulse Oximetry Oxygen Devices in Use Now: None Appearance: 72 yo F in nAD, aAOx3 Eyes: No Scleral Icterus, PERRLA Ears/Nose/Mouth/Throat: NL Teeth, Lips, Gums, Mucous Membranes Moist Neck: NL Appearance and Movements; NL JVP, Trachea Midline Respiratory: Symmetrical Chest Expansion and Respiratory Effort, Clear to Auscultation Cardiovascular: NL Sounds; No Murmurs; No JVD, RRR Abdominal: NL Sounds; No Tenderness; No Distention, No Hepatosplenomegaly Lymphatic: No Cervical Adenopathy Extremities: No Edema, No Clubbing, Cyanosis Skin: No Nodules or Sclerosis, - - back incision covered, not examined Neurological: Alert and Oriented x 3, - - left LE at 4+/5, otherwise motor strength is intact Result Diagrams: 05/12/18 05:35 05/12/18 05:35 Microbiology and Other Data: Microbiology 05/09/18 18:15 Urine Culture - Preliminary Urine Enterococcus Faecalis Assess/Plan/Problems-Billing Assessment: Patient is a 72yo female with a PMH for CAD, DM I, CHF, SSS, HLD, HTN, COPD here after a lumbar decompression complicated by CSF leak which has resolved who still has uncontrolled pain. - Patient Problems (1) Hyponatremia Comment: worsening of chronic, likley due to elevated glucose (2) ARF (acute renal failure) Comment: resolved ofter gentle IVF. (3) GERD (gastroesophageal reflux disease) Comment: protonix (4) Pneumonia Comment: Dx of pneumonia on 6/29 with encephalopathy, leukocytosis, elevated lactic and chest xray showing "suggestion of mild alveolar infiltrate at the right upper lung zone concerning for pneumonia". Levaquin started on 05/11/18, Ceftriaxone and Vanc d/c'd (5) UTI (urinary tract infection) Comment: positive enterococcus UTI. Levaquin (6) CAD (coronary artery disease) Comment: No CP. Continue ASA, Plavix, Ranolazine, Atorvastatin, Metoprolol, Losartan, and Imdur. S/P 14 stents. (7) Diabetes Comment: - type 2 on insulin pump with Januvia and metformin at home. -insulin pump d/c'd when pt was confused on 05/09/18 -will cont Lantus for now with increased dose -plan to restart insulin pump as soon as family brings it from home (8) Urinary retention Comment: acut post op, failed Salmeron discontinuation trial 3 times. will cont Salmeron for now. Likely will go to STR with Salmeron [facility] (9) DVT prophylaxis Comment: Heparin SubQ. SCDs Status and Disposition: Inpatient. Disposition per primary team.
[2018-05-12] MEDS: Atorvastatin* 40 MG TAB PO SCH (18:02)
[2018-05-13] MEDS: Acetaminophen TAB* 325 MG PO PRN ×4 (05:41→22:19)
[2018-05-13] MEDS: Levothyroxine TAB* 100 MCG TAB PO SCH (05:42)
[2018-05-13] MEDS: Heparin VIAL(*) 5000 UNITS/ML VIAL (FIVE THOUSAND) SUBCUT SCH ×3 (05:47→22:16)
[2018-05-13 06:57] LABS: ABS Basophils 0 10^3/ul (0-0.2); ABS Eosinophils 0 10^3/ul (0-0.6); ABS Lymphocytes 1.5 10^3/ul (1.0-4.8); ABS Nucleated RBC 0 10^3/ul; Eosinophil % 0.4 % (0-6); Hematocrit 32 % (35-47); Hemoglobin 10.9 g/dl (12.0-16.0); Lymphocyte % 16.1 % (25-47); Mean Corpuscular HGB Conc 34 g/dl (31-36); Mean Corpuscular Hemoglobin 32 pg (27-31); Mean Corpuscular Volume 93 fL (80-97); Mean Platelet Volume 8.6 um3 (7.4-10.4); Nucleated Red Blood Cells % 0; Platelet Count 196 10^3/ul (150-450); Red Blood Count 3.44 10^6/ul (4.00-5.40); Red Cell Distribution Width 17 % (10.5-15); White Blood Count 9.5 10^3/ul (3.5-10.8)
[2018-05-13 07:15] LABS: EGFR Non-African American 84.6 (>60)
[2018-05-13] MEDS: Insulin LISPRO* 1 UNITS UNIT SUBCUT SCH ×3 (07:20→16:48)
[2018-05-13] MEDS: traMADol TAB* 50 MG PO PRN ×3 (08:24→20:10)
[2018-05-13] MEDS: Mometasone/Formoter 200/5 MDI INH SCH ×2 (09:01→20:43)
[2018-05-13] MEDS: Losartan TAB* 25 MG PO SCH (10:53)
[2018-05-13] MEDS: Potassium Chlor TAB* 20 MEQ TAB.ER PO SCH (10:53)
[2018-05-13] MEDS: Docusate CAP* 100 MG PO SCH ×2 (10:54→20:10)
[2018-05-13] MEDS: Gabapentin CAP(*) 300 MG PO SCH ×3 (10:54→20:09)
[2018-05-13] MEDS: LUBIPROSTONE 8 MCG PO SCH ×2 (10:54→20:10)
[2018-05-13] MEDS: Aspirin EC TAB* 81 MG TAB.EC PO SCH (10:54)
[2018-05-13] MEDS: CMC:Pantoprazole TAB (NF) 40 MG TAB PO SCH (10:54)
[2018-05-13] MEDS: Clopidogrel TAB* 75 MG PO SCH (10:54)
[2018-05-13] MEDS: Metoprolol Succinate XL TAB* 25 MG PO SCH ×2 (10:54→20:10)
[2018-05-13] MEDS: amLODIPine TAB* 5 MG PO SCH (10:55)
[2018-05-13] MEDS: BuPROPion XL* 300 MG TAB.XL PO SCH (10:55)
[2018-05-13] MEDS: Isosorbide Mononitrate ER TAB* 60 MG PO SCH (10:55)
[2018-05-13] MEDS: Insulin GLARGINE(*) 1 UNITS UNIT SUBCUT SCH ×2 (10:59→12:09)
[2018-05-13] MEDS: Levofloxacin 500 MG IVPREMIX(* 500 MG/100 ML BAG IVPB SCH (11:00)
[2018-05-13] MEDS: CMC:Ranolazine (NF) 500 MG TAB PO SCH ×2 (11:19→20:11)
--- NOTE | 2018-05-13 15:16 | PN ---
Subjective Date of Service: 05/13/18 Interval History: Pt feels better and stronger. Being evaluated for PMRU today Family History: Unchanged from Admission Social History: Unchanged from Admission Past Medical History: Unchanged from Admission Objective Active Medications: Acetaminophen (Tylenol Tab*) 650 mg PO Q4H PRN PRN Reason: PAIN Last Admin: 05/13/18 10:55 Dose: 650 mg Albuterol (Ventolin Hfa Inhaler*) 2 puff INH Q4HR PRN PRN Reason: Asthma Last Admin: 05/07/18 08:16 Dose: 2 puff Amlodipine Besylate (Norvasc Tab*) 5 mg PO QAM [facility] Last Admin: 05/13/18 10:55 Dose: 5 mg Aspirin (Aspirin Ec Tab*) 81 mg PO DAILY [facility] Last Admin: 05/13/18 10:54 Dose: 81 mg Atorvastatin Calcium (Lipitor*) 40 mg PO QPM [facility]; Protocol Last Admin: 05/12/18 18:02 Dose: 40 mg Bisacodyl (Dulcolax Supp*) 10 mg UT DAILY PRN PRN Reason: CONSTIPATION Last Admin: 05/10/18 09:32 Dose: 10 mg Bupropion HCl (Bupropion Xl*) 300 mg PO QAM [facility] Last Admin: 05/13/18 10:55 Dose: 300 mg Clopidogrel Bisulfate (Plavix Tab*) 75 mg PO DAILY [facility] Last Admin: 05/13/18 10:54 Dose: 75 mg Dextrose (D50w Syringe 50 Ml*) 12.5 gm IV PUSH .FOR FS < 60 - SS PRN PRN Reason: FS < 60 Docusate Sodium (Colace Cap*) 200 mg PO BID [facility] Last Admin: 05/13/18 10:54 Dose: 200 mg Gabapentin (Neurontin Cap(*)) 600 mg PO TID [facility] Last Admin: 05/13/18 14:56 Dose: 600 mg Heparin Sodium (Porcine) (Heparin Vial(*)) 5,000 units SUBCUT Q8HR [facility] Last Admin: 05/13/18 14:57 Dose: 5,000 units Levofloxacin/Dextrose (Levaquin 500 Mg Ivpremix(*)) 500 mg in 100 mls @ 100 mls /hr IVPB Q24H [facility] Last Admin: 05/13/18 11:00 Dose: 100 mls/hr Insulin Glargine (Lantus(*)) 30 units SUBCUT Q24H [facility] Last Admin: 05/13/18 12:09 Dose: 30 units Insulin Human Lispro (Humalog*) 0 units SUBCUT AC [facility]; Protocol Last Admin: 05/13/18 12:42 Dose: Not Given Isosorbide Mononitrate (Imdur Er Tab*) 60 mg PO QAM [facility] Last Admin: 05/13/18 10:55 Dose: 60 mg Levothyroxine Sodium (Synthroid Tab*) 200 mcg PO 0600 [facility] Last Admin: 05/13/18 05:42 Dose: 200 mcg Lorazepam (Ativan Inj*) 0.5 mg IV PUSH Q4H PRN PRN Reason: ANXIETY Last Admin: 05/11/18 11:46 Dose: 0.5 mg Losartan Potassium (Cozaar Tab*) 100 mg PO DAILY [facility] Last Admin: 05/13/18 10:53 Dose: 100 mg Lubiprostone (Amitiza (Nf)) 8 mcg PO Q12HR [facility] Last Admin: 05/13/18 10:54 Dose: 8 mcg Metoprolol Succinate (Toprol Xl Tab*) 25 mg PO BID [facility] Last Admin: 05/13/18 10:54 Dose: 25 mg Mometasone Furoate/Formoterol Fumar (Dulera 200/5 Mdi*) 2 puff INH BID [facility]; Protocol Last Admin: 05/13/18 09:01 Dose: 2 puff Nitroglycerin (Nitroglycerin Tab 0.4 Mg*) 0.4 mg SL Q5M PRN PRN Reason: PAIN - CHEST Pantoprazole Sodium (Protonix Tab (Nf)) 40 mg PO DAILY [facility] Last Admin: 05/13/18 10:54 Dose: 40 mg Polyethylene Glycol/Electrolytes (Miralax*) 17 gm PO DAILY PRN PRN Reason: CONSTIPATION Last Admin: 05/10/18 09:03 Dose: 17 gm Potassium Chloride (Klor Con Er Tab*) 20 meq PO QAM [facility] Last Admin: 05/13/18 10:53 Dose: 20 meq Ranolazine (Ranexa (Nf)) 1,000 mg PO BID [facility] Last Admin: 05/13/18 11:19 Dose: 1,000 mg Senna (Senokot Tab*) 1 tab PO DAILY PRN PRN Reason: CONSTIPATION Last Admin: 05/10/18 05:20 Dose: 1 tab Tramadol HCl (Ultram*) 50 mg PO Q4H PRN PRN Reason: PAIN Last Admin: 05/13/18 14:57 Dose: 50 mg Vital Signs - 8 hr 05/13/18 05/13/18 05/13/18 07:48 08:24 09:03 Temperature Pulse Rate 60 Respiratory 18 18 Rate Blood Pressure 151/53 (mmHg) O2 Sat by Pulse 92 Oximetry 05/13/18 05/13/18 05/13/18 10:00 10:54 11:19 Temperature 98.5 F Pulse Rate 66 Respiratory 16 16 24 Rate Blood Pressure 141/44 (mmHg) O2 Sat by Pulse 95 Oximetry 05/13/18 05/13/18 05/13/18 13:54 14:56 14:57 Temperature Pulse Rate Respiratory 16 16 16 Rate Blood Pressure (mmHg) O2 Sat by Pulse Oximetry Oxygen Devices in Use Now: None Appearance: 72 yo F in nAD, aAOx3 Eyes: No Scleral Icterus, PERRLA Ears/Nose/Mouth/Throat: NL Teeth, Lips, Gums, Mucous Membranes Moist Neck: NL Appearance and Movements; NL JVP, Trachea Midline Respiratory: Symmetrical Chest Expansion and Respiratory Effort, - - mild bibasiliar crackles noted Cardiovascular: NL Sounds; No Murmurs; No JVD, RRR Abdominal: NL Sounds; No Tenderness; No Distention Lymphatic: No Cervical Adenopathy Extremities: No Edema, No Clubbing, Cyanosis Skin: No Nodules or Sclerosis, - - lumbar spine incision not examined Neurological: Alert and Oriented x 3, - - L LE at 4+/5 Result Diagrams: 05/13/18 06:09 05/13/18 06:09 Microbiology and Other Data: Microbiology 05/09/18 18:15 Urine Culture - Preliminary Urine Enterococcus Faecalis Assess/Plan/Problems-Billing Assessment: Patient is a 72yo female with a PMH for CAD, DM I, CHF, SSS, HLD, HTN, COPD here after a lumbar decompression complicated by CSF leak which has resolved who still has uncontrolled pain. - Patient Problems (1) Hyponatremia Comment: improving (2) ARF (acute renal failure) Comment: resolved after gentle IVF. today pt has crackles on lung exam-will restart home Lasix (3) GERD (gastroesophageal reflux disease) Comment: protonix (4) Pneumonia Comment: Dx of pneumonia on 05/09 with encephalopathy, leukocytosis, elevated lactic and chest xray showing "suggestion of mild alveolar infiltrate at the right upper lung zone concerning for pneumonia". Levaquin started on 05/11/18, Ceftriaxone and Vanc d/c'd (5) UTI (urinary tract infection) Comment: positive enterococcus UTI. Levaquin (6) CAD (coronary artery disease) Comment: No CP. Continue ASA, Plavix, Ranolazine, Atorvastatin, Metoprolol, Losartan, and Imdur. S/P 14 stents. (7) Diabetes Comment: - type 2 on insulin pump with Januvia and metformin at home. -insulin pump d/c'd when pt was confused on 05/09/18, restarted on 05/12/18. will restart metformin today (8) Urinary retention Comment: acut post op, failed Salmeron discontinuation trial 3 times. will cont Salmeron for now. Likely will go to STR with Salmeron in place (9) DVT prophylaxis Comment: Heparin SubQ. SCDs Status and Disposition: Inpatient. Disposition per primary team.
[2018-05-13] MEDS: metFORMIN* 1,000 MG TAB PO SCH (16:40)
[2018-05-13] MEDS: Atorvastatin* 40 MG TAB PO SCH (16:41)
[2018-05-13] MEDS: Furosemide TAB* 20 MG PO SCH (16:41)
[2018-05-14] MEDS: traMADol TAB* 50 MG PO PRN (00:27)
[2018-05-14] MEDS: Acetaminophen TAB* 325 MG PO PRN ×3 (06:07→21:02)
[2018-05-14] MEDS: Levothyroxine TAB* 100 MCG TAB PO SCH (06:09)
[2018-05-14] MEDS: Heparin VIAL(*) 5000 UNITS/ML VIAL (FIVE THOUSAND) SUBCUT SCH ×3 (06:09→21:04)
[2018-05-14] MEDS: Losartan TAB* 25 MG PO SCH (08:16)
[2018-05-14] MEDS: Docusate CAP* 100 MG PO SCH ×2 (08:16→21:03)
[2018-05-14] MEDS: Clopidogrel TAB* 75 MG PO SCH (08:16)
[2018-05-14] MEDS: Aspirin EC TAB* 81 MG TAB.EC PO SCH (08:16)
[2018-05-14] MEDS: metFORMIN* 1,000 MG TAB PO SCH ×2 (08:16→16:49)
[2018-05-14] MEDS: Gabapentin CAP(*) 300 MG PO SCH ×3 (08:16→21:02)
[2018-05-14] MEDS: Potassium Chlor TAB* 20 MEQ TAB.ER PO SCH (08:17)
[2018-05-14] MEDS: LUBIPROSTONE 8 MCG PO SCH ×2 (08:17→21:02)
[2018-05-14] MEDS: Isosorbide Mononitrate ER TAB* 60 MG PO SCH (08:17)
[2018-05-14] MEDS: BuPROPion XL* 300 MG TAB.XL PO SCH (08:17)
[2018-05-14] MEDS: CMC:Pantoprazole TAB (NF) 40 MG TAB PO SCH (08:17)
[2018-05-14] MEDS: Furosemide TAB* 20 MG PO SCH (08:17)
[2018-05-14] MEDS: Metoprolol Succinate XL TAB* 25 MG PO SCH ×2 (08:17→21:02)
[2018-05-14] MEDS: amLODIPine TAB* 5 MG PO SCH (08:17)
[2018-05-14] MEDS: CMC:Ranolazine (NF) 500 MG TAB PO SCH ×2 (08:17→21:03)
[2018-05-14] MEDS: Mometasone/Formoter 200/5 MDI INH SCH ×3 (08:18→19:20)
[2018-05-14] MEDS: Levofloxacin 500 MG IVPREMIX(* 500 MG/100 ML BAG IVPB SCH (10:40)
--- NOTE | 2018-05-14 14:30 | PN ---
Subjective Date of Service: 05/14/18 Interval History: Pt feels :"so much better". the post op back pain is "just a twitch" today. Salmeron was discontinued. Pt walked with assistance today Family History: Unchanged from Admission Social History: Unchanged from Admission Past Medical History: Unchanged from Admission Objective Active Medications: Acetaminophen (Tylenol Tab*) 650 mg PO Q4H PRN PRN Reason: PAIN Last Admin: 05/14/18 13:55 Dose: 650 mg Albuterol (Ventolin Hfa Inhaler*) 2 puff INH Q4HR PRN PRN Reason: Asthma Last Admin: 05/07/18 08:16 Dose: 2 puff Amlodipine Besylate (Norvasc Tab*) 5 mg PO QAM [facility] Last Admin: 05/14/18 08:17 Dose: 5 mg Aspirin (Aspirin Ec Tab*) 81 mg PO DAILY [facility] Last Admin: 05/14/18 08:16 Dose: 81 mg Atorvastatin Calcium (Lipitor*) 40 mg PO QPM [facility]; Protocol Last Admin: 05/13/18 16:41 Dose: 40 mg Bisacodyl (Dulcolax Supp*) 10 mg OR DAILY PRN PRN Reason: CONSTIPATION Last Admin: 05/10/18 09:32 Dose: 10 mg Bupropion HCl (Bupropion Xl*) 300 mg PO QAM [facility] Last Admin: 05/14/18 08:17 Dose: 300 mg Clopidogrel Bisulfate (Plavix Tab*) 75 mg PO DAILY [facility] Last Admin: 05/14/18 08:16 Dose: 75 mg Dextrose (D50w Syringe 50 Ml*) 12.5 gm IV PUSH .FOR FS < 60 - SS PRN PRN Reason: FS < 60 Docusate Sodium (Colace Cap*) 200 mg PO BID [facility] Last Admin: 05/14/18 08:16 Dose: 200 mg Furosemide (Lasix Tab*) 20 mg PO DAILY [facility] Last Admin: 05/14/18 08:17 Dose: 20 mg Gabapentin (Neurontin Cap(*)) 600 mg PO TID [facility] Last Admin: 05/14/18 13:54 Dose: 600 mg Heparin Sodium (Porcine) (Heparin Vial(*)) 5,000 units SUBCUT Q8HR [facility] Last Admin: 05/14/18 13:55 Dose: 5,000 units Isosorbide Mononitrate (Imdur Er Tab*) 60 mg PO QAM [facility] Last Admin: 05/14/18 08:17 Dose: 60 mg Levofloxacin (Levaquin Tab*) 500 mg PO Q24H [facility] Stop: 05/16/18 23:59 Levothyroxine Sodium (Synthroid Tab*) 200 mcg PO 0600 [facility] Last Admin: 05/14/18 06:09 Dose: 200 mcg Lorazepam (Ativan Inj*) 0.5 mg IV PUSH Q4H PRN PRN Reason: ANXIETY Last Admin: 05/11/18 11:46 Dose: 0.5 mg Losartan Potassium (Cozaar Tab*) 100 mg PO DAILY [facility] Last Admin: 05/14/18 08:16 Dose: 100 mg Lubiprostone (Amitiza (Nf)) 8 mcg PO Q12HR [facility] Last Admin: 05/14/18 08:17 Dose: 8 mcg Metformin HCl (Glucophage*) 1,000 mg PO 0800,1700 [facility] Last Admin: 05/14/18 08:16 Dose: 1,000 mg Metoprolol Succinate (Toprol Xl Tab*) 25 mg PO BID [facility] Last Admin: 05/14/18 08:17 Dose: 25 mg Mometasone Furoate/Formoterol Fumar (Dulera 200/5 Mdi*) 2 puff INH BID [facility]; Protocol Last Admin: 05/14/18 08:18 Dose: 2 puff Nitroglycerin (Nitroglycerin Tab 0.4 Mg*) 0.4 mg SL Q5M PRN PRN Reason: PAIN - CHEST Pantoprazole Sodium (Protonix Tab (Nf)) 40 mg PO DAILY [facility] Last Admin: 05/14/18 08:17 Dose: 40 mg Polyethylene Glycol/Electrolytes (Miralax*) 17 gm PO DAILY PRN PRN Reason: CONSTIPATION Last Admin: 05/10/18 09:03 Dose: 17 gm Potassium Chloride (Klor Con Er Tab*) 20 meq PO QAM [facility] Last Admin: 05/14/18 08:17 Dose: 20 meq Ranolazine (Ranexa (Nf)) 1,000 mg PO BID [facility] Last Admin: 05/14/18 08:17 Dose: 1,000 mg Senna (Senokot Tab*) 1 tab PO DAILY PRN PRN Reason: CONSTIPATION Last Admin: 05/10/18 05:20 Dose: 1 tab Vital Signs - 8 hr 07/04/18 07/04/18 07/04/18 07:36 08:16 10:43 Temperature 98.1 F Pulse Rate 60 Respiratory 18 16 15 Rate Blood Pressure 146/43 (mmHg) O2 Sat by Pulse 94 Oximetry 05/14/18 05/14/18 11:37 13:54 Temperature 97.7 F Pulse Rate 58 Respiratory 16 16 Rate Blood Pressure 128/48 (mmHg) O2 Sat by Pulse 98 Oximetry Oxygen Devices in Use Now: None Appearance: 72 yo F in nAD, aAOx3 Eyes: No Scleral Icterus, PERRLA Ears/Nose/Mouth/Throat: NL Teeth, Lips, Gums, Mucous Membranes Moist Neck: NL Appearance and Movements; NL JVP Respiratory: Symmetrical Chest Expansion and Respiratory Effort, Clear to Auscultation Cardiovascular: NL Sounds; No Murmurs; No JVD, RRR Abdominal: NL Sounds; No Tenderness; No Distention Lymphatic: No Cervical Adenopathy Extremities: No Edema, No Clubbing, Cyanosis Skin: No Rash or Ulcers, No Nodules or Sclerosis, - - post op incision not inspected Neurological: Alert and Oriented x 3, NL Muscle Strength and Tone Result Diagrams: 05/13/18 06:09 05/13/18 06:09 Microbiology and Other Data: Microbiology 05/09/18 18:15 Urine Culture - Preliminary Urine Enterococcus Faecalis Assess/Plan/Problems-Billing Assessment: Patient is a 72yo female with a PMH for CAD, DM I, CHF, SSS, HLD, HTN, COPD here after a lumbar decompression complicated by CSF leak which has resolved who still has uncontrolled pain. - Patient Problems (1) Pneumonia Comment: Dx of pneumonia on 05/09 with encephalopathy, leukocytosis, elevated lactic and chest xray showing "suggestion of mild alveolar infiltrate at the right upper lung zone concerning for pneumonia". Levaquin started on 05/11/18, Ceftriaxone and Vanc d/c'd. Plan for 1 more day PO Levaquin , then d/c (2) Diabetes Comment: - type 2 on insulin pump with Januvia and metformin at home. -insulin pump d/c'd when pt was confused on 05/09/18, restarted on 05/12/18. Metformin restarted on 05/13/18 (3) Hyponatremia Comment: improving (4) ARF (acute renal failure) Comment: resolved after gentle IVF. (5) GERD (gastroesophageal reflux disease) Comment: protonix (6) UTI (urinary tract infection) Comment: positive enterococcus UTI. Levaquin (7) CAD (coronary artery disease) Comment: No CP. Continue ASA, Plavix, Ranolazine, Atorvastatin, Metoprolol, Losartan, and Imdur. S/P 14 stents. (8) Urinary retention Comment: acut post op, failed Salmeron discontinuation trial 3 times. D/c'd today again by neurosurgical service. cont to monitor (9) DVT prophylaxis Comment: Heparin SubQ. SCDs Status and Disposition: Inpatient. Disposition per primary team. Will sign off. Meds for home unchanged from admission Last dose of Levaquin on 05/15/18 please call with questions
[2018-05-14] MEDS: Atorvastatin* 40 MG TAB PO SCH (16:49)
[2018-05-15] MEDS: Levothyroxine TAB* 100 MCG TAB PO SCH (05:48)
[2018-05-15] MEDS: Acetaminophen TAB* 325 MG PO PRN ×2 (05:49→09:51)
[2018-05-15] MEDS: Heparin VIAL(*) 5000 UNITS/ML VIAL (FIVE THOUSAND) SUBCUT SCH ×2 (05:50→14:35)
[2018-05-15] MEDS: Bisacodyl SUPP* 10 MG SUPP PR PRN (07:39)
[2018-05-15] MEDS: Gabapentin CAP(*) 300 MG PO SCH ×2 (07:41→14:34)
[2018-05-15] MEDS: Clopidogrel TAB* 75 MG PO SCH (07:41)
[2018-05-15] MEDS: Furosemide TAB* 20 MG PO SCH (07:41)
[2018-05-15] MEDS: metFORMIN* 1,000 MG TAB PO SCH ×2 (07:41→17:12)
[2018-05-15] MEDS: Docusate CAP* 100 MG PO SCH (07:42)
[2018-05-15] MEDS: CMC:Pantoprazole TAB (NF) 40 MG TAB PO SCH (07:42)
[2018-05-15] MEDS: Aspirin EC TAB* 81 MG TAB.EC PO SCH (07:42)
[2018-05-15] MEDS: Mometasone/Formoter 200/5 MDI INH SCH (08:27)
[2018-05-15] MEDS: BuPROPion XL* 300 MG TAB.XL PO SCH (09:50)
[2018-05-15] MEDS: amLODIPine TAB* 5 MG PO SCH (09:50)
[2018-05-15] MEDS: Potassium Chlor TAB* 20 MEQ TAB.ER PO SCH (09:50)
[2018-05-15] MEDS: Isosorbide Mononitrate ER TAB* 60 MG PO SCH (09:50)
[2018-05-15] MEDS: CMC:Ranolazine (NF) 500 MG TAB PO SCH (09:51)
[2018-05-15] MEDS: Metoprolol Succinate XL TAB* 25 MG PO SCH (09:51)
[2018-05-15] MEDS: LUBIPROSTONE 8 MCG PO SCH (09:51)
[2018-05-15] MEDS: Losartan TAB* 25 MG PO SCH (09:51)
[2018-05-15] MEDS ORDERED: Levofloxacin TAB* 500 MG PO SCH (10:00)
--- NOTE | 2018-05-15 13:33 | PN ---
Progress Note - Progress Note Date of Service: 05/15/18 SOAP: Subjective: []No events ON. Feels better. Ambulates, Voids. No H/A Objective: []VSS Wound s,c,d AAOx3, PATRICIA 4-5/5 Sensory grossly intact ti light touch. Assessment: []72 yof sp lumbar decompression Plan: []Monitor VS, Neurochecks. Appreciate IM consult. DC planning. Balbir Peralta MD
[2018-05-15 16:45] VITALS: BP 148/49
[2018-05-15] MEDS: Atorvastatin* 40 MG TAB PO SCH (17:12)
== END 2018-05-15 17:30 | disposition home health service (06) | DRG 518 ==
LOC: OR 09:23 → SSU 13:42 → OBSVTOIN 05-07 07:43
PROVIDERS: ADMIT Neurological Surgery; ATTEND Neurological Surgery
PROC: 01NB0ZZ Release Lumbar Nerve, Open Approach (ICD-10-PCS; principal; 2018-05-07)
PROC: 00QT0ZZ Repair Spinal Meninges, Open Approach (ICD-10-PCS; 2018-05-07)
DX: M48.062 Spinal stenosis, lumbar region with neurogenic claudication (principal); J18.9 Pneumonia, unspecified organism; G93.40 Encephalopathy, unspecified; I50.32 Chronic diastolic (congestive) heart failure; G96.0 Cerebrospinal fluid leak; E87.1 Hypo-osmolality and hyponatremia; N17.9 Acute kidney failure, unspecified; N39.0 Urinary tract infection, site not specified; I25.10 Atherosclerotic heart disease of native coronary artery without angina pectoris; F32.9 Major depressive disorder, single episode, unspecified; E78.2 Mixed hyperlipidemia; G47.00 Insomnia, unspecified; I25.9 Chronic ischemic heart disease, unspecified; I11.0 Hypertensive heart disease with heart failure; J43.9 Emphysema, unspecified; K21.9 Gastro-esophageal reflux disease without esophagitis; E10.65 Type 1 diabetes mellitus with hyperglycemia; E89.0 Postprocedural hypothyroidism; K59.00 Constipation, unspecified; Z96.659 Presence of unspecified artificial knee joint; I08.3 Combined rheumatic disorders of mitral, aortic and tricuspid valves; E10.36 Type 1 diabetes mellitus with diabetic cataract; E66.01 Morbid (severe) obesity due to excess calories; E10.42 Type 1 diabetes mellitus with diabetic polyneuropathy; Z82.3 Family history of stroke; Z80.1 Family history of malignant neoplasm of trachea, bronchus and lung; Z95.0 Presence of cardiac pacemaker; Z85.850 Personal history of malignant neoplasm of thyroid; Z82.49 Family history of ischemic heart disease and other diseases of the circulatory system; Z87.891 Personal history of nicotine dependence; Z95.5 Presence of coronary angioplasty implant and graft; Z88.5 Allergy status to narcotic agent; Z88.0 Allergy status to penicillin; Z88.8 Allergy status to other drugs, medicaments and biological substances; Z83.3 Family history of diabetes mellitus; Z68.36 Body mass index [BMI] 36.0-36.9, adult; Z90.710 Acquired absence of both cervix and uterus; R51 Headache; B95.2 Enterococcus as the cause of diseases classified elsewhere; R33.9 Retention of urine, unspecified
CPT/HCPCS: 36415; 71045; 80048; 80202; 81003; 81015; 83605; 85025; 87040; 87077; 87086; 87186; 93005; 94640; A9270-GY; G8978-GP-CL; G8979-GP-CI; G8987-GO-CM; G8988-GO-CI; G8989-GO-CI; J0456; J0696; J1100; J1200; J1644; J1885; J1956; J2001; J2060; J2250; J2704; J3010; J3370

== ENCOUNTER 2018-07-09 13:57 | Inpatient (IN) | payer MEDICARE, MEDICAID ==
--- OUTSIDE RECORDS SUMMARY | 2018-07-09 14:36 | XMS REPORT ---
:1945 External Reference #:[id number] Author Organization [employer] Address [address] [place] [address] [place] [address] Phone [phone] Care Team Providers Name Role Phone Sade Gordon MD Primary Care Physician Unavailable Payers Type Date Identification Numbers Payment Provider Subscriber Medicare Primary Effective: Policy Number: Medicare Taylor Radnhawa 2000 [id number] PayID: [id number] [address] [place] [address] Medigap Part B Policy Number: [id number] Medicaid Taylor Randhawa PayID: [id number] [address] [place] [address] Commercial Effective: 2015 Policy Number: 100% [facility] Taylor Carmona Edis Expires: 2017 PayID: [id number] [address] Problems Date Description Provider Status Onset: 03/26/2012 Coronary arteriosclerosis Jill Plata M.D. Active Onset: 03/26/2012 Type II diabetes mellitus Jill Plata M.D. Active uncontrolled Onset: 03/26/2012 Depressive disorder Jill Plata M.D. Active Onset: 03/26/2012 Mixed hyperlipidemia Jill Plata M.D. Active Onset: 03/26/2012 Insomnia Jill Plata M.D. Active Onset: 03/26/2012 Obesity Jill Plata M.D. Active Onset: 03/27/2012 History of malignant neoplasm of Jill Plata M.D. Active thyroid Onset: 09/02/2013 Chronic ischemic heart disease Bebeto Perez M.D., [facility], Active [facility] Onset: 09/02/2013 Essential hypertension Bebeto Perez M.D., [facility], Active [facility] Onset: 09/02/2013 Hyperlipidemia Bebeto Perez M.D., [facility], Active [facility] Onset: 03/09/2014 Preoperative cardiovascular Bebeto Perez M.D., [facility], Active examination [facility] Onset: 09/22/2015 Chronic ischemic heart disease, Bebeto Perez M.D., [facility], Active unspecified [facility] Onset: 02/29/2016 Heart murmur Bebeto Perez M.D., [facility], Active [facility] Onset: 02/29/2016 Mitral valve disorder Bebeto Perez M.D., [facility], Active [facility] Onset: 03/19/2016 Dyspnea Bebeto Perez M.D., [facility], Active [facility] Onset: 08/10/2016 Full respiratory system Soledad Mcclain MD Active examination Onset: 08/10/2016 Emphysema, unspecified Soledad Mcclain MD Active Onset: 06/07/2017 Cardiac pacemaker in situ Dalia Luke M.D. Active Onset: 07/11/2017 Chronic diastolic heart failure Bebeto Perez M.D., [facility], Active [facility] Onset: 09/11/2017 Unspecified diastolic (congestive) Bebeto Perez M.D., [facility] , Active heart failure [facility] Onset: 12/30/2017 Chest pain Bebeto Perez M.D., [facility], Active [facility] Onset: 04/16/2018 Neurogenic claudication Andrea Diez M.D. Active co-occurrent and due to spinal stenosis of lumbar region Onset: 05/21/2018 Convalescence after surgery Andrea Diez M.D. Active Family History Date Family Member(s) Problem(s) Comments General Heart Disease General Diabetes General Cancer Father Lung cancer at age 62 Father due to cancer () Mother Heart issues at ?84 or 89 Children 5 Siblings 6 2 brothers have passed ; 1 from lymp cancer ; other from CAD Other siblings w/heart issues , still alive Social History Type Date Description Comments Marital Status Lives With Occupation Retired Cigarette Use Quit 14 years ago as of 2016 ETOH Use Denies alcohol use Smoking Patient is a former smoker Recreational Drug Use Denies Drug Use Smoking Heavy tobacco smoker (more than 1 1/2 PPD x 20+ years 10 cigarettes/day) Daily Caffeine Consumes on average 3 cups of 1/2 caff decaff coffee per day Exercise Type/Frequency Does not exercise Allergies, Adverse Reactions, Alerts Date Description Reaction Status Severity Comments 03/25/2012 Darvon active 03/25/2012 Penicillin active 03/25/2012 Morphine active Medications Medication Date Status Form Strength Qnty SIG Indications Ordering Provider Tramadol HCL 05/21 Active Tablets 50mg 60tab 1 by mouth Z48.89 s every 6 Shafer, hours as M.D. needed pain Clopidogrel 03/19 Active Tablets 75mg 90tab 1 by mouth R06.02 Bebeto Bisulfate s every day Thaddeus Perez, [facility] Isosorbide 03/09 Active Tablets ER 60mg 90tab 1 by mouth Bebeto Mononitrate 24HR s every day Thaddeus Perez, [facility] Nitrostat 06/18 Active Tablets Sub 0.4mg 25tab 1 sl Pedro S. s q5mins x3 Mitchell, as needed DO [facility] for chest pain, if no relief call 911 Etouch Ultra Test 09/22 Active Strips 500un test as 250.02 Jill Strips its directed Plata, up to 4-5 M.D. times a day Onetouch Lancets 09/22 Active Misc 500un test 4-5 250.02 Jill its times x Plata, per day M.D. Ranexa 09/03 Active Tablets ER 1000mg 180ta 1 by mouth Bebeto 12HR bs twice a [place], roland Travis, [facility] BD Pen Iva 05/05 Active Misc 31G X 8 540un for use Jill Short/Ultrafine/ mm its with Plata, 1G X 5/16" insulin M.D. pens as directed Metoprolol Active Tablets ER 25mg 270ta take 1 tab Bebeto Succinate ER /0000 24HR bs in the [place], morning M.D., and 1 tab F[facility], [facility] Metformin HCL Active Tablets 1000mg 60tab 1 po bid Unknown /0000 s Humalog Active 100Units/ use via Unknown /0000 ML pump max 125 per day Gabapentin Active Tablets 600mg 1 tab po [place], /0000 tid prn MD [place] Levothyroxine Active Tablets 200mcg 30tab 1 by mouth 244.0 Unknown Sodium /0000 s every day Aspirin Active Tablets 81mg 1 by mouth Unknown /0000 every day Losartan Active Tablets 100mg 1 by mouth Unknown Potassium /0000 every day Bupropion HCL ER Active Tablets ER 300mg one tab [place], (XL) / 24HR daily MD [place] Amitiza Active Capsules 8mcg twice [place], / daily EUSEBIO Yun Crestor Active Tablets 20mg 1 by mouth Unknown /0000 every day Norvasc Active Tablets 5mg 1 tablet Unknown /0000 by mouth every day Lasix Active Tablets 20mg 1 by mouth Unknown /0000 every day Vitamin D3 Active Capsules 5000Unit 1 by mouth Unknown Maximum Strength /0000 every day Klor-Con Active Tablets ER 20Meq 1 by mouth Unknown /0000 every day Maalox Max Active Suspension 400-400-4 30ml by Unknown /0000 0mg/5ML mouth every 4 hours as needed heartburn Januvia Active Tablets 100mg 1 by mouth Unknown /0000 every day Symbicort Active Aerosol 160-4.5mc 2 puff Unknown /0000 g/Act twice a day Nexium Active Capsules DR 40mg 1 by mouth Unknown /0000 every day Tramadol HCL 04/17 Hx Tablets 50mg 60tab 1 by mouth s every 6 Shafer, - hours as M.D. 06/13 /2017 pain Sulfamethoxazole/ 08/14 Hx Tablets 800-160mg 60tab 1 by mouth M86.172 Aj Trimethoprim s twice D. - daily [place], 07/27 M.D. /2015 Hydrochlorothiazi 06/30 Hx Tablets 25mg 30tab one pill a Bebeto de s day Cindy Perez M.D., 06/03 [facility] Clopidogrel 03/19 Hx Tablets 300mg 1tabs take one R06.02 Bebeto Bisulf today Cindy Perez M.D., 08/26 [facility] [place] 08/10 Hx Tablets 5-325mg 30tab 1 by mouth Romeo s twice a Michael, - day as Thaddeus 02/25 pain Atorvastatin 01/24 Hx Tablets 80mg 90tab 1 by mouth Bebeto Christianson s every day Cindy Perez M.D., 07/27 [facility] Clopidogrel 05/12 Hx Tablets 75mg 90tab 1 tab by Bebeto Sneed s mouth Chris, - every day MTrinaDTrina, 02/25 [facility] Naproxen 12/02 Hx Tablets 500mg 60tab 1 po bid s prn Cindy Renae M.D. 03/21 [place] 12/02 Hx Tablets 5-325mg 60tab 1-2 tabs s po q4-6 h [place], - prn pain Kavin.DTrina 03/08 Aspirin 09/02 Hx Tablets 81mg 1 po qd Cindy Perez M.D., 12/02 [facility] Clopidogrel 03/25 Hx Tablets 75mg 90tab 1 tab by Bebeto s mouth Chris, - every day Thaddeus, 05/12 [facility] Onetouch Ultra 09/22 Hx Strips 450un test as 250.02 Jill its directed Boni - up to five M.D. 09/22 times a day Novolog Flexpen 09/22 Hx Solution 100Unit/M 20Fle 20 units 250.02 L xpens sq tid Cindy Plata M.D. 09/02 Onetouch Lancets 09/22 Hx Misc 450un test 3 x 250.02 its per day Cindy Plata M.D. 09/22 Accu-Chek Comfort 09/19 Hx Strips 150un five times Mian Curve Test Strips /2011 its a day Cindy Patel M.D.,FACP 09/22 Novolog Flexpen 09/17 Hx Solution 100Unit/M 5unit 20 units 250.02 L s sq tid Cindy Plata M.D. 09/22 Wellbutrin XL 09/17 Hx Tablets ER 150mg 180ta 1 po bid 311 24HR bs Cindy Plata M.D. 09/02 Combivent 08/25 Hx Aerosol 18-103mcg 1unit 2 puff q 6 [place] /2011 / s hours as Chad knowles M.D. 12/02 Levemir Flexpen 08/15 Hx Solution 100Unit/M 30uni Inject 32 L ts Units Boni, - Under The M.DTrina 09/02 Skin In The Morning And 40 Units In The Evening Ureacin-20 08/05 Hx Cream 20% 1box apply on 700 soles of Boni, - feet every M.D. 09/02 Levothyroxine 08/05 Hx Tablets 175mcg 90tab 1 po daily 244.0 Jill Sodium /2011 s Cindy Plata M.D. 09/02 Accu-Chek 06/26 Hx Strips 4boxe check BS 250.02 Jill Advantage Test /2011 s 4-5 times Boni, Strips - /day M.D. 09/22 Accu-Chek 06/26 Hx Misc 4boxe test 4-5 250.02 Jill Softclix Lancets /2011 s times a Boni, - day M.D. 09/22 Wellbutrin SR 06/18 Hx Tablets ER 100mg 60tab 1 po bid 311 Jill /2012 12HR s Cindy Plata M.D. 09/17 Wellbutrin SR 05/19 Hx Tablets ER 100mg 30tab 1 po qd 311 Jill /2012 12HR s Cindy Plata M.D. 08/05 Levothyroxine 05/19 Hx Tablets 150mcg 90tab 1 po qd 244.0 Jill Sodium s Cindy Plata M.D. 09/18 Micardis HCT 05/19 Hx Tablets 80-12.5mg 30tab 1 po daily 782.3 Jill /2012 s Cindy Plata M.D. 06/18 Lunesta 05/19 Hx Tablets 2mg 30tab 1 po hs as s needed Cindy Plata M.D. 09/02 Levothyroxine 05/19 Hx Tablets 150mcg 30tab Take One 244.0 Jill s Tablet By Cindy Plata Mouth Thaddeus 06/24 Every Day Levothyroxine 04/20 Hx Tablets 175mcg 40tab 1 po qod Jill s Cindy Plata M.D. 06/24 Ambien 04/10 Hx Tablets 10mg 30tab 1 po qhs 780.52 s prn Cindy Sharma insomnia Thaddeus 05/19 Plavix 03/25 Hx Tablets 75mg 90tab 1 po qd Cindy Townsend M.D., 03/25 [facility] Ambien 03/25 Hx Tablets 5mg 30tab as needed 780.52 Jill /2012 s before Cindy Plata M.D. 04/10 Ibuprofen 10/09 Hx Tablets 600mg 90tab 1 po tid s Cindy Lovett M.D. 09/02 Vicodin 05/29 Hx Tablets 5-500mg 60tab 1-2 by s megan Fernandes - every 4-6 M.DTrina needed for pain Levothyroxine Hx Tablets 200mcg 90tab 1 po qd Unknown Sodium / s - 05/[address] 40mg 90cap 1 po qd Jill / iCndy Rivera M.D. 02/25 Renexa Hx 1000mg 2x daily Unknown /0000 - 09/17 Micardis Hx Tablets 80mg 30tab 1 po qd Unknown /0000 s - 08/05 Levemir Hx Solution 100Unit/M 6pens take 32 Jill L units sq Plata, - Am and 40 M.D. 08/15 units Nitroglycerin Hx Tab 0.4mg 1Bott 1 under Unknown /0000 le tounge, - march repeat 06/18 Citalopram Hx Tablets 40mg 30tab 1 po qd Unknown Hydrobromide / s - 05/19 Novolog Hx Solution 100Unit/M 1bott 20 units Jill /0000 L le tid as Boni, - directed M.D. 09/22 Lovastatin Hx Tablets 40mg 180ta 2 tabs by Bebeto /0000 bs mouth [place], - every day M.D., 03/15 [facility] Aspirin Hx Tablets DR 325mg 1 po qd Unknown / - 09/02 Isosorbide Hx Tablets ER 30mg 90tab 1 tab by Bebeto Mononitrate ER /0000 24HR s mouth [place], - every day M.D., 03/09 [facility] Fish Oil Hx Capsules 1000mg 1 po bid Unknown Burp-Less /0000 - 12/02 Micardis HCT Hx Tablets 80-25mg 90tab 1 tab by Bebeto /0000 s mouth [place], - every day M.D., 06/30 [facility] Micardis HCT Hx Tablets 80-12.5mg 90tab Take One Jill /0000 s Tablet By Boni, - Mouth M.D. 09/17 Novolog Hx Solution 100Unit/M 1bott uses 250.02 Unknown /0000 L le novolog - insulin 12/02 Levothyroxine Hx Tablets 200mcg 90tab 1 po qd 244.0 Unknown Sodium / s - 03/[address] 60mg 90cap 1 po bid Unknown / Part s - 03/16 Tramadol HCL Hx Tablets 50mg 1 tab po [place], /0000 qid Cindy Tang MD 03/21 Escitalopram Hx Tablets 20mg 1 tab po [place], Oxalate daily Cindy Tang MD 09/21 Lipitor 00/00 Hx Tablets 80mg 30tab 1 by mouth Unknown /0000 s every - night at 03/21 Lovastatin 00/00 Hx Tablets 40mg 30tab 2 by mouth Unknown /0000 s every - night at 01/24 Trazodone HCL 00/00 Hx Tablets 50mg 30tab 1-2 Unknown /0000 s tablets at - bedtime as 09/21 Hydrochlorothiazi 00/ Hx Tablets 25mg 1 by mouth Unknown de /0000 every day - 02/25 Amitiza / Hx Capsules 8mcg 1 by mouth Unknown /0000 twice a - day 02/25 Brilinta / Hx Tablets 90mg 1 tab by Unknown /0000 mouth - twice a Duloxetine HCL 00/[address] 60mg 1 by mouth Unknown /0000 Part bid - 08/13 Cephalexin 00 Hx Tablets 500mg 1 tab po Unknown /0000 qid - 08/13 Bactrim DS Hx Tablets 800-160mg 1 by mouth Unknown /0000 twice a - day 07/27 Lovastatin 00/00 Hx Tablets 40mg take one Unknown /0000 tab PO - daily 06/[address] 40mg 1 by mouth Unknown Sodium /0000 twice - daily 12/29 Lovastatin 00/00 Hx Tablets 40mg take 2 Unknown /0000 tablet by - mouth at 12/28 Influenza Virus 00 Active Injection Unknown Vaccine /0000 Immunizations CPT Code Status Date Vaccine Lot # [id number] Given 08/05/2012 Zoster (Zostavax) [id number] Given 07/11/2012 Pneumonia Vaccine [id number] Given 07/11/2012 Influenza Virus 3Yrs & Over [id number] Ordered 07/11/2012 Pneumonia Vaccine Vital Signs Date Vital Result Comment 06/13/2018 Height 67 inches 5'7" Weight 232.00 lb BP Systolic Sitting 122 mmHg BP Diastolic Sitting 80 mmHg Pain Level 4 BMI (Body Mass Index) 36.3 kg/m2 05/21/2018 Height 67 inches 5'7" Weight 232.00 lb BP Systolic Sitting 124 mmHg BP Diastolic Sitting 70 mmHg Body Temperature 98.0 F BMI (Body Mass Index) 36.3 kg/m2 04/30/2018 Height 67 inches 5'7" Weight 232.00 lb Heart Rate 68 /min BP Systolic Sitting 122 mmHg lue lg cuff BP Diastolic Sitting 62 mmHg lue lg cuff BP Systolic Standing 122 mmHg lue lg cuff BP Diastolic Standing 62 mmHg lue lg cuff Respiratory Rate 20 /min BMI (Body Mass Index) 36.3 kg/m2 Ejection Fraction 55-60% echo 05/29/17 04/16/2018 Height 67 inches 5'7" Weight 232.00 lb BP Systolic Sitting 124 mmHg BP Diastolic Sitting 80 mmHg Pain Level 6 BMI (Body Mass Index) 36.3 kg/m2 03/26/2018 Height 67 inches 5'7" Weight 232.00 lb BP Systolic Sitting 140 mmHg BP Diastolic Sitting 80 mmHg Pain Level 7 BMI (Body Mass Index) 36.3 kg/m2 12/30/2017 Height 67 inches 5'7" Weight 232.00 lb Heart Rate 64 /min BP Systolic Sitting 137 mmHg lue large cuff BP Diastolic Sitting 78 mmHg lue large cuff BP Systolic Standing 138 mmHg lue large cuff BP Diastolic Standing 80 mmHg lue large cuff Respiratory Rate 18 /min BMI (Body Mass Index) 36.3 kg/m2 Ejection Fraction 55-60% 10/01/2017 Height 67 inches 5'7" Weight 228.00 lb stated by pt, Heart Rate 62 /min BP Systolic Sitting 132 mmHg lue large cuff BP Diastolic Sitting 78 mmHg lue large cuff BP Systolic Standing 124 mmHg lue large cuff BP Diastolic Standing 70 mmHg lue large cuff Respiratory Rate 18 /min BMI (Body Mass Index) 35.7 kg/m2 Ejection Fraction 55-60% echo 05/29/17 09/11/2017 Height 67 inches 5'7" Weight 222.00 lb pt states weighed earlier today Heart Rate 66 /min BP Systolic Sitting 118 mmHg rue large cuff BP Diastolic Sitting 48 mmHg rue large cuff BP Systolic Standing 90 mmHg rue large cuff BP Diastolic Standing 40 mmHg rue large cuff Respiratory Rate 20 /min BMI (Body Mass Index) 34.8 kg/m2 Ejection Fraction 55-60% echo 05/29/17 07/11/2017 Height 67 inches 5'7" Weight 226.00 lb w/shoes Heart Rate 60 /min 60 standing BP Systolic Sitting 124 mmHg Ra lg cuff BP Diastolic Sitting 60 mmHg Ra lg cuff BP Systolic Standing 120 mmHg Ra lg cuff BP Diastolic Standing 58 mmHg Ra lg cuff BMI (Body Mass Index) 35.4 kg/m2 Ejection Fraction 55-60% Echo 05/29/17 06/07/2017 Height 67 inches 5'7" Weight 237.00 lb Heart Rate 64 /min BP Systolic Sitting 112 mmHg Lue large cuff BP Diastolic Sitting 68 mmHg Lue large cuff BP Systolic Standing 112 mmHg Lue BP Diastolic Standing 66 mmHg Lue Respiratory Rate 16 /min BMI (Body Mass Index) 37.1 kg/m2 Ejection Fraction 55-60% 05/29/17 09/26/2016 Height 67 inches 5'7" Weight 241.00 lb w/ shoes Heart Rate 80 /min reg BP Systolic Sitting 116 mmHg Lue, lg cuff BP Diastolic Sitting 74 mmHg Lue, lg cuff BP Systolic Standing 114 mmHg Lue BP Diastolic Standing 70 mmHg Lue Respiratory Rate 16 /min BMI (Body Mass Index) 37.7 kg/m2 Ejection Fraction > 65% as of 03/14/16 echo 08/28/2016 Height 67 inches 5'7" Weight 240.00 lb Heart Rate 72 /min BP Systolic Sitting 124 mmHg BP Diastolic Sitting 60 mmHg Respiratory Rate 14 /min Body Temperature 97.7 F BMI (Body Mass Index) 37.6 kg/m2 08/15/2016 Height 67 inches 5'7" Weight 235.00 lb Heart Rate 60 /min BP Systolic 128 mmHg BP Diastolic 64 mmHg Respiratory Rate 14 /min O2 % BldC Oximetry 96 % BMI (Body Mass Index) 36.8 kg/m2 08/14/2016 Height 67 inches 5'7" Weight 235.00 lb Heart Rate 62 /min BP Systolic Sitting 124 mmHg BP Diastolic Sitting 60 mmHg Respiratory Rate 16 /min Body Temperature 97.9 F BMI (Body Mass Index) 36.8 kg/m2 08/10/2016 Height 67 inches 5'7" Weight 235.00 lb Heart Rate 50 /min BP Systolic Sitting 142 mmHg BP Diastolic Sitting 80 mmHg Respiratory Rate 18 /min O2 % BldC Oximetry 96 % BMI (Body Mass Index) 36.8 kg/m2 03/19/2016 Height 67 inches 5'7" Weight 232.00 lb Heart Rate 72 /min 76 BP Systolic Sitting 136 mmHg right arm, large cuff BP Diastolic Sitting 76 mmHg right arm, large cuff BP Systolic Standing 124 mmHg right arm, large cuff BP Diastolic Standing 74 mmHg right arm, large cuff Respiratory Rate 16 /min BMI (Body Mass Index) 36.3 kg/m2 Ejection Fraction >65% 03/14/16 02/29/2016 Height 67 inches 5'7" Weight 232.00 lb Heart Rate 78 /min 82 BP Systolic Sitting 144 mmHg right arm, large cuff BP Diastolic Sitting 82 mmHg right arm, large cuff BP Systolic Standing 122 mmHg right arm, large cuff BP Diastolic Standing 78 mmHg right arm, large cuff Respiratory Rate 20 /min BMI (Body Mass Index) 36.3 kg/m2 Ejection Fraction 65% 03/17/14 02/27/2016 Height 67 inches 5'7" Weight 233.00 lb Heart Rate 72 /min 76 BP Systolic Sitting 140 mmHg right arm, reg cuff BP Diastolic Sitting 80 mmHg right arm, reg cuff BP Systolic Standing 146 mmHg right arm, reg cuff BP Diastolic Standing 84 mmHg right arm, reg cuff Respiratory Rate 20 /min BMI (Body Mass Index) 36.5 kg/m2 Ejection Fraction 65% 03/17/14 09/22/2015 Height 67 inches 5'7" Weight 230.00 lb per patient Heart Rate 66 /min 70 BP Systolic Sitting 124 mmHg right arm, large cuff BP Diastolic Sitting 76 mmHg right arm, large cuff BP Systolic Standing 118 mmHg right arm, large cuff BP Diastolic Standing 76 mmHg right arm, large cuff Respiratory Rate 16 /min BMI (Body Mass Index) 36.0 kg/m2 Ejection Fraction >65% 03/17/14 08/31/2015 Height 67 inches 5'7" Weight 220.00 lb Pain Level 7 BMI (Body Mass Index) 34.5 kg/m2 08/10/2015 Height 67 inches 5'7" Weight 220.00 lb Heart Rate 69 /min BP Systolic 116 mmHg BP Diastolic 64 mmHg BMI (Body Mass Index) 34.5 kg/m2 09/24/2014 Height 67 inches 5'7" Weight 227.00 lb Heart Rate 76 /min 78 BP Systolic 132 mmHg Home BP Cuff BP Diastolic 82 mmHg Home BP Cuff BP Systolic Sitting 124 mmHg left arm, large BP Diastolic Sitting 84 mmHg left arm, large BP Systolic Standing 120 mmHg left arm, large cuff BP Diastolic Standing 80 mmHg left arm, large cuff Respiratory Rate 16 /min BMI (Body Mass Index) 35.5 kg/m2 03/22/2014 Height 67 inches 5'7" Weight 230.00 lb Heart Rate 70 /min 74 BP Systolic Sitting 140 mmHg left arm, large cuff BP Diastolic Sitting 84 mmHg left arm, large cuff BP Systolic Standing 142 mmHg left arm, large cuff BP Diastolic Standing 84 mmHg left arm, large cuff Respiratory Rate 16 /min BMI (Body Mass Index) 36.0 kg/m2 03/09/2014 Height 67 inches 5'7" Weight 222.00 lb with shoes Heart Rate 76 /min BP Systolic Sitting 174 mmHg Ra lg cuff BP Diastolic Sitting 90 mmHg Ra lg cuff BP Systolic Standing 160 mmHg Ra lg cuff BP Diastolic Standing 90 mmHg Ra lg cuff Respiratory Rate 17 /min BMI (Body Mass Index) 34.8 kg/m2 12/02/2013 Heart Rate 72 /min BP Systolic 126 mmHg BP Diastolic 80 mmHg 09/02/2013 Heart Rate 7880 /min BP Systolic Sitting 122 mmHg right arm, large cuff BP Diastolic Sitting 78 mmHg right arm, large cuff BP Systolic Standing 118 mmHg right arm, large cuff BP Diastolic Standing 78 mmHg right arm, large cuff Respiratory Rate 16 /min 09/17/2012 Height 66 inches 5'6" Weight 225.00 lb Heart Rate 76 /min BP Systolic Sitting 142 mmHg BP Diastolic Sitting 90 mmHg BMI (Body Mass Index) 36.3 kg/m2 08/05/2012 Height 66 inches 5'6" Weight 218.00 lb Heart Rate 84 /min BP Systolic Sitting 120 mmHg BP Diastolic Sitting 72 mmHg BMI (Body Mass Index) 35.2 kg/m2 06/18/2012 Height 66 inches 5'6" Weight 223.00 lb Heart Rate 76 /min BP Systolic Sitting 120 mmHg BP Diastolic Sitting 70 mmHg BMI (Body Mass Index) 36.0 kg/m2 05/19/2012 Height 66 inches 5'6" Weight 224.00 lb Heart Rate 80 /min BP Systolic Sitting 130 mmHg BP Diastolic Sitting 80 mmHg BMI (Body Mass Index) 36.2 kg/m2 04/10/2012 Height 66 inches 5'6" Weight 218.00 lb Heart Rate 72 /min BP Systolic Sitting 120 mmHg l BP Diastolic Sitting 68 mmHg l BMI (Body Mass Index) 35.2 kg/m2 03/25/2012 Height 66 inches 5'6" Weight 218.00 lb Heart Rate 68 /min BP Systolic Sitting 116 mmHg BP Diastolic Sitting 62 mmHg BMI (Body Mass Index) 35.2 kg/m2 Results Test Date Test Result H/L Range Note Laboratory test finding 05/06/2018 Point of Care 201 mg/dL High 70-100 1 Glucose Laboratory test finding 05/06/2018 Point of Care 173 mg/dL High 70-100 2 Glucose Laboratory test finding 05/06/2018 Point of Care 179 mg/dL High 70-100 3 Glucose Laboratory test finding 05/06/2018 Point of Care 195 mg/dL High 70-100 4 Glucose CBC No Diff 04/29/2018 White Blood Count 6.7 10^3/uL 3.5-10.8 Red Blood Count 4.19 10^6/uL 4.00-5.40 Hemoglobin 13.5 g/dL 12.0-16.0 Hematocrit 39 % 35-47 Mean Corpuscular Volume 94 fL 80-97 Mean Corpuscular Hemoglobin 32 pg High 27-31 Mean Corpuscular HGB Conc 34 g/dL 31-36 Red Cell Distribution Width 18 % High 10.5-15 Platelet Count 213 10^3/uL 150-450 Mean Platelet Volume 8.7 um3 7.4-10.4 Basic Metabolic Panel 04/29/2018 Sodium 138 mmol/L 135-145 Potassium 4.5 mmol/L 3.5-5.0 Chloride 100 mmol/L Low 101-111 Co2 Carbon Dioxide 27 mmol/L 22-32 Anion Gap 11 mmol/L 2-11 Glucose 246 mg/dL High 70-100 Blood Urea Nitrogen 32 mg/dL High 6-24 Creatinine 1.08 mg/dL High 0.51-0.95 BUN/Creatinine Ratio 29.6 High 8-20 Calcium 9.9 mg/dL 8.6-10.3 Egfr Non- 49.6 >60 Egfr 63.8 >60 5 Basic Metabolic Panel 07/12/2017 Sodium 135 mmol/L 133-145 Potassium 4.4 mmol/L 3.5-5.0 Chloride 99 mmol/L Low 101-111 Co2 Carbon Dioxide 29 mmol/L 22-32 Anion Gap 7 mmol/L 2-11 Glucose 103 mg/dL High 70-100 Blood Urea Nitrogen 19 mg/dL 6-24 Creatinine 1.01 mg/dL High 0.51-0.95 BUN/Creatinine Ratio 18.8 8-20 Calcium 10.2 mg/dL 8.6-10.3 Egfr Non- 53.7 >60 Egfr 69.1 >60 6 Laboratory test finding 07/12/2017 B-Type Natriuretic Peptide 102 pg/mL High 7 BNP Laboratory test finding 10/09/2016 Alt 24 U/L 7-52 8 Ast 22 U/L 13-39 8 Lipid Profile (Trig/Chol/HDL) 10/09/2016 Triglycerides 124 mg/dL 8, 9 Cholesterol 135 mg/dL 8, 10 HDL Cholesterol 44.8 mg/dL 8, 11 LDL Cholesterol 65 mg/dL 8, 12 Comp Metabolic Panel 10/09/2016 Sodium 135 mmol/L 133-145 8 Potassium 4.3 mmol/L 3.5-5.0 8 Chloride 100 mmol/L Low 101-111 8 Co2 Carbon Dioxide 29 mmol/L 22-32 8 Anion Gap 6 mmol/L 2-11 8 Glucose 75 mg/dL 70-100 8 Blood Urea Nitrogen 16 mg/dL 6-24 8 Creatinine 0.74 mg/dL 0.51-0.95 8 BUN/Creatinine Ratio 21.6 High 8-20 8 Calcium 9.4 mg/dL 8.6-10.3 8 Total Protein 7.0 g/dL 6.4-8.9 8 Albumin 3.8 g/dL 3.2-5.2 8 Globulin 3.2 g/dL 2-4 8 Albumin/Globulin Ratio 1.2 1-3 8 Total Bilirubin 0.40 mg/dL 0.2-1.0 8 Alkaline Phosphatase 60 U/L 34-104 8 Egfr Non- 77.1 >60 8 Egfr 99.2 >60 8, 13 Laboratory test 10/09/2016 TSH (Thyroid Stim 0.21 mcIU/mL Low 0.34-5.60 8 , 14 finding Horm) Hemoglobin A1c (Glyco HGB) 8.1 % High Less than 6.0 8, 15 Vitamin D Total 25(Oh) 38.5 ng/mL 30-50 8, 16 C-Peptide 0.5 ng/mL 1.1 - 4.4 8, 17 Islet Antigen 2 Antibody 0.00 nmol/L <=0.02 8, 18 Laboratory test finding 08/28/2016 Point of Care Glucose 201 mg/dL High 74 -106 19 Laboratory test finding 08/27/2016 Point of Care Glucose 143 mg/dL High 74 -106 20 Laboratory test finding 08/27/2016 Point of Care Glucose 270 mg/dL High 74 -106 21 Laboratory test finding 08/24/2016 Point of Care Glucose 205 mg/dL High 74 -106 22 Laboratory test finding 08/24/2016 Point of Care Glucose 372 mg/dL High 74 -106 23 Laboratory test finding 08/23/2016 Point of Care Glucose 330 mg/dL High 74 -106 24 Laboratory test finding 08/23/2016 Point of Care Glucose 347 mg/dL High 74 -106 25 Laboratory test finding 08/22/2016 Point of Care Glucose 104 mg/dL 74- 106 26 Laboratory test finding 08/22/2016 Point of Care Glucose 131 mg/dL High 74 -106 27 Laboratory test finding 08/21/2016 Point of Care Glucose 110 mg/dL High 74 -106 28 Laboratory test finding 08/21/2016 Point of Care Glucose 236 mg/dL High 74 -106 29 Laboratory test finding 08/14/2016 C Reactive Protein < 1.00 mg/L < 5.00 30 Arterial Blood Gas 08/10/2016 Fio2 21 PH Arterial 7.40 7.35-7.45 Pco2 Arterial 36 mmHg 35-45 Po2 Arterial 91 mmHg 80-100 O2 Saturation Arterial 96.5 % 95-98 Base Excess Arterial -2.0 -2.0-2.0 31 Hco3 Arterial 23.3 mmol/L 19-31 Laboratory test 08/07/2016 Point of Care Glucose 70 mg/dL Low 74-106 32 finding Laboratory test 03/19/2016 D Dimer Quantitative < 200 ng/mL Less Than 230 33 finding Laboratory test 02/27/2016 Troponin-I (TnI) 0.01 ng/mL <0.03 34 finding Creatine Kinase(CK) 104 U/L 10-223 CKMB 02/27/2016 CKMB ng/mL 3.9 ng/mL 0.6-6.3 Comp Metabolic Panel 02/27/2016 Sodium 131 mmol/L Low 133-145 Potassium 4.5 mmol/L 3.5-5.0 Chloride 98 mmol/L Low 101-111 Co2 Carbon Dioxide 27 mmol/L 22-32 Anion Gap 6 mmol/L 2-11 Glucose 193 mg/dL High 70-100 Blood Urea Nitrogen 30 mg/dL High 6-24 Creatinine 0.80 mg/dL 0.51-0.95 BUN/Creatinine Ratio 37.5 High 8-20 Calcium 9.5 mg/dL 8.6-10.3 Total Protein 6.9 g/dL 6.4-8.9 Albumin 4.0 g/dL 3.2-5.2 Globulin 2.9 g/dL 2-4 Albumin/Globulin Ratio 1.4 1-3 Total Bilirubin 0.50 mg/dL 0.2-1.0 Alkaline Phosphatase 74 U/L 34-104 Alt 18 U/L 7-52 Ast 16 U/L 13-39 Egfr Non- 70.5 >60 Egfr 90.7 >60 35 CBC Auto Diff 02/27/2016 White Blood Count 6.0 10^3/uL 3.5-10.8 Red Blood Count 3.98 10^6/uL Low 4.0-5.4 Hemoglobin 12.8 g/dL 12.0-16.0 Hematocrit 38 % 35-47 Mean Corpuscular Volume 94 fL 80-97 Mean Corpuscular Hemoglobin 32 pg High 27-31 Mean Corpuscular HGB Conc 34 g/dL 31-36 Red Cell Distribution Width 14 % 10.5-15 Platelet Count 219 10^3/uL 150-450 Mean Platelet Volume 8 um3 7.4-10.4 Abs Neutrophils 3.7 10^3/uL 1.5-7.7 Abs Lymphocytes 1.7 10^3/uL 1.0-4.8 Abs Monocytes 0.5 10^3/uL 0-0.8 Abs Eosinophils 0.1 10^3/uL 0-0.6 Abs Basophils 0 10^3/uL 0-0.2 Abs Nucleated RBC 0 10^3/uL Granulocyte % 61.1 % 38-83 Lymphocyte % 28.6 % 25-47 Monocyte % 7.7 % 1-9 Eosinophil % 1.9 % 0-6 Basophil % 0.7 % 0-2 Nucleated Red Blood Cells % 0 Laboratory test finding 03/12/2014 B Type Natriuretic Peptide 199 pg/mL 36, 37 D Dimer Quantitative 343 ng/mL High Less Than 230 36, 38 Basic Metabolic Panel 03/12/2014 Sodium 134 mmol/L 133-145 36 Potassium 4.4 mmol/L 3.7-5.6 36 Chloride 101 mmol/L 101-111 36 Co2 Carbon Dioxide 27 mmol/L 22-32 36 Anion Gap 6 mmol/L 2-11 36 Glucose 230 mg/dL High 70-100 36 Blood Urea Nitrogen 16 mg/dL 6-24 36 Creatinine 0.71 mg/dL 0.51-0.95 36 BUN/Creatinine Ratio 22.5 High 8-20 36 Calcium 9.6 mg/dL 8.6-10.3 36 Egfr Non- 81.4 >60 36 Egfr 104.7 >60 36, 39 Laboratory test finding 09/04/2013 Alt 33 U/L 14-54 Ast 25 U/L 12-42 Lipid Profile (Trig/Chol/HDL) 09/04/2013 Triglycerides 105 mg/dL 40-200 Cholesterol 162 mg/dL Less than 200 HDL Cholesterol 43 mg/dL 40-60 40 Cholesterol/HDL Ratio 3.8 Average 1-4.44 LDL Cholesterol 98.0 Less Than 100 41 Laboratory test finding 09/17/2012 TSH (Thyroid Stimulating 2.42 MIU/ML 0.34-5.60 Horm) Free T4 1.05 NG/ML 0.61-1.24 Laboratory test 09/17/2012 Free T3 3.02 pg/mL 2.39-6.79 finding Laboratory test 08/04/2012 Hemoglobin A1c 8.7 % High Less Than 6.0 42 finding Urine Microalbumin 08/04/2012 Microalbumin (MG/L) 9.0 mg/L Random Urine Creatinine 83.7 mg/dL Maury Alb/Creatinine Ratio 10.8 UG/MG Less Than 30 43 Liver Function Panel 08/04/2012 Total Protein 6.7 GM/DL 6.2-8.1 Albumin 4.3 GM/DL 3.2-5.2 Globulin 2.4 GM/DL 2-4 Albumin/Globulin Ratio 1.8 1-3 Bilirubin Total 0.7 mg/dL 0.4-1.5 44 Bilirubin Direct 0.1 mg/dL 0.1-0.5 Indirect Bilirubin 0.6 mg/dL 0.3-1.0 45 Alkaline Phosphatase 85 U/L 30-110 Alt (SGPT) 36 U/L 14-54 Ast (Sgot) 25 U/L 12-42 Laboratory test finding 08/04/2012 CPK (Creatine Kinase) 64 U/L 0-170 Vitamin D, 25 Hydroxy 08/04/2012 25-Hydroxy Vitamin D2 <4.0 ng/mL () 25-Hydroxy Vitamin D3 49 ng/mL () 25-Hydroxy Vitamin D Total 49 ng/mL () 46 PTH Intact, Inc Total Calcium 08/04/2012 PTH Intact 1.9 PMOL/L 1.3-9.3 Calcium For Pthi 9.5 mg/dL 8.1-9.9 47 Laboratory test finding 08/04/2012 TSH 2.13 MIU/ML 0.34-5.60 Thyroxine Free 1.08 ng/dL 0.61-1.24 T3 Free 3.62 pg/mL 2.39-6.79 Laboratory test finding 05/16/2012 TSH 3.58 MIU/ML 0.34-5.60 Thyroxine Free 0.75 ng/dL 0.61-1.24 T3 Free 2.70 pg/mL 2.39-6.79 Laboratory test finding 04/22/2012 Potassium 4.9 mmol/L 3.5-5.0 Laboratory test finding 04/18/2012 TSH 0.02 MIU/ML Low 0.34-5.60 Thyroxine Free 1.41 ng/dL High 0.61-1.24 T3 Free 3.10 pg/mL 2.39-6.79 Lipid Profile (Trig/Chol/HDL) 04/18/2012 Triglyceride 84 mg/dL 40-200 Cholesterol 124 mg/dL Less Than 200 48 High Density Lipoprotein 36 mg/dL Low 40-60 49 Cholesterol/HDL Ratio 3.44 AVERAGE 1-4.44 Low Density Lipoprotein 71 mg/dL Less Than 100 50 Comp Metabolic Panel 04/18/2012 Sodium 130 mmol/L Low 135-145 Potassium 5.5 mmol/L High 3.5-5.0 Chloride 98 mmol/L Low 101-111 Co2 (Carbon Dioxide) 25.0 mmol/L 22-32 Anion Gap 7.0 mmol/L 2-11 51 Glucose 226 mg/dL High 70-100 BUN 22 mg/dL 6-24 Creatinine 0.8 mg/dL 0.50-1.40 One Over Creatinine 1.25 BUN/Creatinine Ratio 27.5 High 8-20 Calcium 9.4 mg/dL 8.1-9.9 Total Protein 6.4 GM/DL 6.2-8.1 Albumin 3.7 GM/DL 3.2-5.2 Globulin 2.7 GM/DL 2-4 Albumin/Globulin Ratio 1.4 1-3 Bilirubin Total 0.6 mg/dL 0.4-1.5 52 Alkaline Phosphatase 94 U/L 30-110 Alt (SGPT) 18 U/L 14-54 Ast (Sgot) 22 U/L 12-42 eGFR Non- 71.3 > 60 eGFR 91.7 > 60 53 Laboratory test finding 04/10/2012 Hemoglobin A1c 7.5 High 5-7 1 Elect Equip Maint Eng: [id number] 2 Elect Equip Maint Eng: [id number] 3 Elect Equip Maint Eng: [id number] 4 Elect Equip Maint Eng: [id number] 5 Because ethnic data is not always readily available, this report includes an eGFR for both -Americans and non- Americans. The National Kidney Disease Education Program (NKDEP) does not endorse the use of the MDRD equation for patients that are not between the ages of 18 and 70, are , have extremes of body size, muscle mass, or nutritional status, or are non- or non-. According to the National Kidney Foundation, irrespective of diagnosis, the stage of the disease is based on the level of kidney function: Stage Description GFR(mL/min/1.73 m(2)) 1 Kidney damage with normal or decreased GFR 90 2 Kidney damage with mild decrease in GFR 60-89 3 Moderate decrease in GFR 30-59 4 Severe decrease in GFR 15-29 5 Kidney failure <15 (or dialysis) 6 Because ethnic data is not always readily available, this report includes an eGFR for both -Americans and non- Americans. The National Kidney Disease Education Program (NKDEP) does not endorse the use of the MDRD equation for patients that are not between the ages of 18 and 70, are , have extremes of body size, muscle mass, or nutritional status, or are non- or non-. According to the National Kidney Foundation, irrespective of diagnosis, the stage of the disease is based on the level of kidney function: Stage Description GFR(mL/min/1.73 m(2)) 1 Kidney damage with normal or decreased GFR 90 2 Kidney damage with mild decrease in GFR 60-89 3 Moderate decrease in GFR 30-59 4 Severe decrease in GFR 15-29 5 Kidney failure <15 (or dialysis) 7 >100 to <200 pg/mL: likely compensated congestive heart failure (CHF) 200 to 400 pg/mL: likely moderate CHF >400 pg/mL: likely moderate to severe CHF 8 FASTING 9 Desirable <150 Borderline high 150-199 High 200-499 Very High >500 10 Desirable <200 Borderline high 200-239 High >239 11 Low <40 Desirable: 40-60 High: >60 12 Desirable: <100 mg/dL Near Optimal: 100-129 mg/dL Borderline High: 130-159 mg/dL High: 160-189 mg/dL Very High: >189 mg/dL 13 Because ethnic data is not always readily available, this report includes an eGFR for both -Americans and non- Americans. The National Kidney Disease Education Program (NKDEP) does not endorse the use of the MDRD equation for patients that are not between the ages of 18 and 70, are , have extremes of body size, muscle mass, or nutritional status, or are non- or non-. According to the National Kidney Foundation, irrespective of diagnosis, the stage of the disease is based on the level of kidney function: Stage Description GFR(mL/min/1.73 m(2)) 1 Kidney damage with normal or decreased GFR 90 2 Kidney damage with mild decrease in GFR 60-89 3 Moderate decrease in GFR 30-59 4 Severe decrease in GFR 15-29 5 Kidney failure <15 (or dialysis) 14 FASTING 15 Therapeutic target for the treatment of diabetes Mellitus patients is <7% HBA1C, and in selective patients <6.0%.Please refer to [place] [employer] Diabetic care guidelines for further information. 16 FASTING 17 Test Performed by: [place] [address] Sap Basis Administrator: Luis Escobedo II, M.D., Ph.D. 18 ADDITIONAL INFORMATION This test was developed and its performance characteristics determined by [facility] in a manner consistent with CLIA requirements. This test has not been cleared or approved by the U.S. Food and Drug Administration. Test Performed by: [place] [address] Sap Basis Administrator: Luis Escobedo II, M.D., Ph.D. 19 Elect Equip Maint Eng: [id number] MOLIVIATIS GITA 20 Elect Equip Maint Eng: [id number] MOLIVIATIS GITA 21 Elect Equip Maint Eng: [id number] MOLIVIATIS GITA 22 Elect Equip Maint Eng: [id number] MOLIVIATIS GITA 23 Elect Equip Maint Eng: [id number] MOLIVIATIS GITA 24 Elect Equip Maint Eng: [id number] MEIXELL ROMELIA 25 Elect Equip Maint Eng: [id number] MEIXELL ROMELIA 26 Elect Equip Maint Eng: [id number] PARLETT EBONY R 27 Elect Equip Maint Eng: [id number] PARLETT EBONY R 28 Elect Equip Maint Eng: [id number] RANDI PELAYO 29 Elect Equip Maint Eng: [id number] RANDI PELAYO 30 Acute inflammation: >10.00 31 Reference ranges based on room air. 32 Elect Equip Maint Eng: YUE PELAYO 33 Please note: The following may produce a false positive D Dimer test: - Rheumatoid factor greater than 60 IU/ml - Plasma hemoglobin greater than 0.05 gm/dl - Bilirubin greater than 50 mg/dl - Lipids greater than 1000 mg/dl - FDP greater than 20 ug/ml 34 Reference Range and Interpretation: TnI (ng/mL) Interpretation Less Than 0.03 ng/mL Not supportive of diagnosis of VA 0.03 - 0.50 ng/mL Indeterminate: suggest serial studies if clinically indicated. Greater than 0.5 ng/mL Consistent with diagnosis of VA 35 Because ethnic data is not always readily available, this report includes an eGFR for both -Americans and non- Americans. The National Kidney Disease Education Program (NKDEP) does not endorse the use of the MDRD equation for patients that are not between the ages of 18 and 70, are , have extremes of body size, muscle mass, or nutritional status, or are non- or non-. According to the National Kidney Foundation, irrespective of diagnosis, the stage of the disease is based on the level of kidney function: Stage Description GFR(mL/min/1.73 m(2)) 1 Kidney damage with normal or decreased GFR 90 2 Kidney damage with mild decrease in GFR 60-89 3 Moderate decrease in GFR 30-59 4 Severe decrease in GFR 15-29 5 Kidney failure <15 (or dialysis) 36 Verbal to CRYSTAL by [id number] at 0928 on 03/12/14.~Results read back accurately. 37 >100 to <200 pg/mL: likely compensated congestive heart failure (CHF) 200 to 400 pg/mL: likely moderate CHF >400 pg/mL: likely moderate to severe CHF [facility] 38 Please note: The following may produce a false positive D Dimer test: - Rheumatoid factor greater than 60 IU/ml - Plasma hemoglobin greater than 0.05 gm/dl - Bilirubin greater than 50 mg/dl - Lipids greater than 1000 mg/dl - FDP greater than 20 ug/ml 39 Because ethnic data is not always readily available, this report includes an eGFR for both -Americans and non- Americans. The National Kidney Disease Education Program (NKDEP) does not endorse the use of the MDRD equation for patients that are not between the ages of 18 and 70, are , have extremes of body size, muscle mass, or nutritional status, or are non- or non-. According to the National Kidney Foundation, irrespective of diagnosis, the stage of the disease is based on the level of kidney function: Stage Description GFR(mL/min/1.73 m(2)) 1 Kidney damage with normal or decreased GFR 90 2 Kidney damage with mild decrease in GFR 60-89 3 Moderate decrease in GFR 30-59 4 Severe decrease in GFR 15-29 5 Kidney failure <15 (or dialysis) 40 HDL Interpretation: Undesirable: High Risk: Less than 40 mg/dL Desirable: Low Risk: Greater than 60 mg/dL 41 LDL Interpretation: Low Risk Optimal Level: LDL Less than 100 mg/dL Near or Above Optimal: LDL 100-129 mg/dL Borderline High Risk: LDL 130-159 mg/dL High Risk: LDL 160-189 mg/dL Very High Risk: LDL Greater than 189 mg/dL 42 THERAPEUTIC TARGET FOR THE TREATMENT OF DIABETES MELLITUS PATIENTS IS <7% HBA1C, AND IN SELECTIVE PATIENTS <6.0%. PLEASE REFER TO [place] [employer] DIABETIC CARE GUIDELINES FOR FURTHER INFORMATION. 43 MICROALBUMINURIA IN A RANDOM SAMPLE IS DEFINED : MICROALBUMIN/CREATININE RATIO OF 30-299 ug/mg. . 44 A metabolite of Naproxen, O-desmethylnaproxen, has been shown to interfere with the Jendrassik-Funkley method for measuring total bilirubin. Samples from patients who have taken Naproxen have shown spurious elevation in total bilirubin levels. 45 Please note updated reference range, effective 06/01/10 46 -- REFERENCE VALUE -- 25-HYDROXY D TOTAL (D2+D3) Optimum levels in the normal population are 25-80 Test Performed by: [address] [address] Sap Basis Administrator: Pan Maravilla III, M.D. 47 Please note change in reference range effective 08 . 48 CHOLESTEROL INTERPRETATION: Desirable: Less than 200 MG/DL Borderline-High Risk: 200-239 MG/DL High-Risk: 240 MG/DL and over 49 HDL INTERPRETATION: Undesirable: High Risk: Less than 40 MG/DL Desirable: Low Risk: Greater than 60 MG/DL 50 LDL INTERPRETATION: Low Risk Optimal Level: LDL Less than 100 MG/DL Near or Above Optimal: LDL 100-129 MG/DL Borderline High Risk: LDL 130-159 MG/DL High Risk: LDL 160-189 MG/DL Very High Risk: LDL Greater than 189 MG/DL 51 Anion gap measurement may be of limited value in the presence of any alkalosis, especially in a combined acid base disorder. . 52 A metabolite of Naproxen, O-desmethylnaproxen, has been shown to interfere with the Jendrassik-Leyla method for measuring total bilirubin. Samples from patients who have taken Naproxen have shown spurious elevation in total bilirubin levels. 53 Because ethnic data is not always readily available, this report includes an eGFR for both -Americans and non- Americans. The National Kidney Disease Education Program (NKDEP) does not endorse the use of the MDRD equation for patients that are not between the ages of 18 and 70, are , have extremes of body size, muscle mass, or nutritional status, or are non- or non-. According to the National Kidney Foundation, irrespective of diagnosis, the stage of the disease is based on the level of kidney function: Stage Description GFR(mL/min/1.73 m(2)) 1 Kidney damage with normal or decreased GFR 90 2 Kidney damage with mild decrease in GFR 60-89 3 Moderate decrease in GFR 30-59 4 Severe decrease in GFR 15-29 5 Kidney failure <15 (or dialysis) Procedures Date CPT Code Description Status 06/09/2018 45210 Pace Maker Eval W/Iterative Adjment Dual Lead Completed 05/06/2018 47738 Grijalva/Facet/Foraminotomy;Vertebral Segment; Lumbar Completed 05/06/2018 59968 Grijalva/Facet/Foraminotomy;Vertebral Segment; Lumbar Completed 04/30/2018 95928 EKG Tracing & Interpretation Completed 12/30/2017 01312 EKG Tracing & Interpretation Completed 12/09/2017 44659 Treadmill Interp/Report Only Completed 12/09/2017 03731 Stress Test Supervsn W/Out I/R Completed 12/09/2017 81660 EKG, Interpretation Only Completed 12/08/2017 88246 EKG, Interpretation Only Completed 12/06/2017 33216 Pace Maker Eval W/Iterative Adjment Dual Lead Completed 12/06/2017 13990 Pace Maker Eval W/Iterative Adjment Dual Lead Completed 09/11/2017 00861 EKG Tracing & Interpretation Completed 08/30/2017 24217 Pace Maker Eval W/Iterative Adjment Dual Lead Completed 08/30/2017 45030 Pace Maker Eval W/Iterative Adjment Dual Lead Completed 07/30/2017 58821 Pace Maker Eval W/Iterative Adjment Dual Lead Completed 07/09/2017 42494 Pacemaker Check Remote Up To 90Days Completed Single,Dual,Multiple Lead 07/09/2017 02667 Icd Eval Sing,Dual,Multi Lead Remote Recpt Transm Tech Completed Rev Tech S 06/01/2017 49932 EKG, Interpretation Only Completed 05/31/2017 60300 Perm Pacemaker Av Sequential Atrial And Ventricular Completed 05/29/2017 65893 ECHO Transthorasic Realtime 2D W Doppler & Color Flow Completed Hosp 05/29/2017 18140 EKG, Interpretation Only Completed 08/28/2016 83784 Apply Total Contact Leg Cast Completed 08/24/2016 67920 Hyperbaric Oxygen Therapy By Physician Completed 08/23/2016 10945 Hyperbaric Oxygen Therapy By Physician Completed 08/22/2016 65615 Hyperbaric Oxygen Therapy By Physician Completed 08/21/2016 52059 Hyperbaric Oxygen Therapy By Physician Completed 08/21/2016 68566 Removal Devitalization Tissue Wound Less Than Equal 20 Completed Square 08/14/2016 80488 Removal Devitalization Tissue Wound Less Than Equal 20 Completed Square 08/10/2016 72995 Diffusing Capacity Completed 08/10/2016 55392 Plethysmography Determination Lung Volumes & Per Airway Completed Resist 08/10/2016 84203 Pulmonary Function><Bronchodil Completed 08/09/2016 15723 Apply Total Contact Leg Cast Completed 08/07/2016 27130 Removal Devitalization Tissue Wound Less Than Equal 20 Completed Square 08/02/2016 54895 Removal Devitalization Tissue Wound Less Than Equal 20 Completed Square 07/24/2016 70607 Removal Devitalization Tissue Wound Less Than Equal 20 Completed Square 03/14/2016 89326 ECHO Transthorasic Realtime 2D W Doppler & Color Flow Completed Hosp 02/28/2016 64933 Treadmill Interp/Report Only Completed 02/28/2016 23832 Stress Test Supervsn W/Out I/R Completed 02/27/2016 32115 EKG Tracing & Interpretation Completed 09/22/2015 25092 EKG Tracing & Interpretation Completed 08/10/2015 94052 FX Metatarsal Care Completed 09/24/2014 76628 EKG Tracing & Interpretation Completed 03/17/2014 65872 ECHO Transthorasic Realtime 2D W Doppler & Color Flow Completed Hosp 03/17/2014 76407 Treadmill Interp/Report Only Completed 03/17/2014 45394 Stress Test Supervsn W/Out I/R Completed 03/09/2014 98418 EKG Tracing & Interpretation Completed 01/01/2014 09762 Rad Exam; Foot Limited Completed 01/01/2014 79452 Rad Exam; Foot Limited Completed 12/09/2013 30397 Rad Exam; Foot Limited Completed 12/02/2013 55496 FX Metatarsal Care Completed 12/02/2013 86791 FX Metatarsal Care Completed 09/02/2013 26384 EKG Tracing & Interpretation Completed 02/11/2013 00634 EKG Tracing & Interpretation Completed 06/20/2012 Bone Mineral Density Test Completed 04/15/2012 Diabetic Foot Exam Completed 04/03/2012 Diabetic Retinal Eye Exam Completed 10/09/2011 22388 Rad Shoulder Comp, Min. 2 Views Completed 10/09/2011 73658 Rad Shoulder Comp, Min. 2 Views Completed 10/09/2011 26766 Rad Shoulder Comp, Min. 2 Views Completed 09/18/2011 99965 Closed trtmt prox humeral fx Completed 09/06/2011 72567 Rad Shoulder Comp, Min. 2 Views Completed 09/06/2011 93176 Closed trtmt prox humeral fx Completed 06/13/2011 93394 Rad Exam; Ankle Comp Completed 05/29/2011 84857 CLSD TX Distal Fib FX (Lateral Malleolus) w/o Completed manipulation Encounters Type Date Location Provider CPT E/M Dx Office Visit 05/14/2018 donal Carbajal M.D. 44398 E11.9 9:19a Hospitalists B95.2 N39.0 Office Visit 05/13/2018 9:18a donal Carbajal, 28272 E11.9 Hospitalists M.D. N39.0 B95.2 Office Visit 05/12/2018 9:07a [facility], Laura Augustin, 03046 E11.9 Hospitalists M.DTrina N17.9 E87.1 B95.2 N39.0 J18.9 Office Visit 05/11/2018 1:15p [facility], Laura Augustin, 21564 M54.5 Hospitalists M.DTrina E87.1 N39.0 B95.2 Office Visit 05/10/2018 9:06a [facility],pc Karla Chapman, OPS MANAGER 13721 E11.9 Hospitalists N39.0 M79.662 Office Visit 05/08/2018 9:06a [facility],pc Luis Alexander, 20000 M79.662 Hospitalists [place] E11.9 I25.10 Z98.1 Office Visit 04/30/2018 3:20p [facility] Molly Perez M.D., 73283 Z01.810 Butadiene Convertor Operator AT [facility] Z95.0 I25.10 M48.062 Office Visit 04/16/2018 1:50p Neurosurgery Services Andrea Diez, 89012 M48.062 Of [facility] Office Visit 03/26/2018 1:45p Neurosurgery Services Susie Kan PA-C 44916 M48.062 Of [facility] M51.36 R09.89 Z95.0 Office Visit 12/30/2017 11:20a [facility] Molly Perez M.D., 17387 R07.9 [employer]adiene Convertor Operator AT [facility] I10 E78.2 I25.10 Office Visit 12/09/2017 3:14p [facility] Molly Perez M.D., 22020 Butadiene Convertor Operator AT [facility] Office Visit 10/01/2017 10:30a [facility] Of Nurse Visit 46741 I10 [employer] Convertor Operator [place] [facility] Office Visit 09/30/2017 10:00a [facility] Molly Perez M.D., 71657 I10 [employer]adiene Convertor Operator AT [facility] Office Visit 09/11/2017 11:40a [facility] Of Bebeto Perez M.D., 84797 R06.02 Butadiene Convertor Operator AT [facility] Z95.0 I25.9 E78.5 I50.30 I10 Office Visit 07/11/2017 3:40p [facility] Of Bebeto Perez M.D., 24069 Z95.0 [employer]ene Convertor Operator AT [facility] I25.10 I50.32 R06.02 Office Visit 06/07/2017 11:30a [facility] Of Dalia Luke M.D. 60358 R00.1 [facility] Z95.0 I25.10 E16.2 I50.9 Office Visit 06/01/2017 2:08p [facility], Brandi Allison, 71427 R00.1 Hospitalists Thaddeus I50.33 I25.10 E11.9 Office Visit 05/31/2017 2:06p [facility], Brandi Allison, 42045 R00.1 Hospitalists Thaddeus I25.10 I50.33 E11.9 Office Visit 05/30/2017 2:06p [facility], Brandi Allison, 04446 R00.1 Hospitalists Thaddeus I25.10 I50.33 E11.9 Office Visit 05/29/2017 3:46p [facility] Of Dalia Luke M.D. 05267 Z95.0 [facility] I49.5 I50.30 Office Visit 05/29/2017 [facility] [address] R00.1 Assoc, Hospitalists Thaddeus I25.10 I50.33 E11.9 Office Visit 09/26/2016 2:00p [facility] Of [facility] Bebeto Perez M.D., 31171 I10 AT [facility] I25.10 E78.2 E66.9 Office Visit 09/11/2016 8:26a [facility] AT Andrea Chen, 41031 E11.621 [facility] Thaddeus Office Visit 08/28/2016 8:50a [facility] Devorah Johnson 01404 E11.621 Infectious Diseases Thaddeus Calzada Office Visit 08/15/2016 12:00p [facility] [place] [address] Z01.811 Services Of [employer] Convertor Operator Office Visit [facility]/14[facility]2016 [facility] [address]159 M86.172 Infectious Diseases Thaddeus Calzada E11.40 Office Visit 08/10/2016 7:30a [facility]ology [place] [address] J43.9 Services Of [employer] Convertor Operator Z01.811 E11.621 L97.529 Office Visit 07/24/2016 11:33a W[facility] Care [facility] AT Andrea Jhon MulliganGustavo, 65975 E11.621 [facility] Thadedus Office Visit 03/19/2016 3:00p [facility] Molly Perez M.D., 81243 I34.0 [employer] Convertor Operator AT [facility] I25.10 I34.2 R06.02 Office Visit 03/12/2016 2:40p [facility], Kim Hernandez N.P. 14304 R07.9 Hospitalists I25.10 K21.9 Office Visit 02/29/2016 9:40a [facility] Molly Perez M.D., 74007 I25.9 [employer] Convertor Operator AT [facility] I34.0 Office Visit 02/27/2016 10:40a [facility] Bebeto Perez M.D., 23850 I10 AT [facility] HEALTH, FSCAI E78.5 I25.9 Office Visit 09/22/2015 11:00a [facility] Molly Perez M.D., 93107 I25.9 [employer] AT [facility], [facility] I10 E78.5 E66.9 Office Visit 09/24/2014 3:20p [facility] Molly Perez M.D., 92307 414.9 [employer] [facility] AT [facility], [facility]SC[facility] 401.9 272.4 Office Visit 03/22/2014 3:15p [facility] Molly Perez M.D., 88524 V72.81 [employer] AT [facility], [facility]SC[facility] 414.9 401.9 272.4 Office Visit 03/09/2014 3:30p [facility] Molly Perez M.D., 33874 414.9 [employer] AT [facility], [facility]SC[facility] 401.9 272.4 V72.81 Office Visit 09/02/2013 2:45p [facility] Of Bebeto Perez M.D., 72497 414.9 [facility] AT [facility], FSCAI 401.9 272.4 Office Visit 02/11/2013 3:30p [facility] Bebeto Perez M.D., 17669 414.9 [facility] AT [facility], FSCAI 401.9 Office Visit 09/17/2012 10:10a [facility] Internal Medicine Jill Plata M.D. 74277 244.0 - Amigo 787.02 401.9 311 799.81 Office Visit 08/05/2012 10:30a [facility] Internal Medicine Jill Plata 63407 250.02 - Kimberly Travis 244.0 700 787.02 733.90 401.9 V04.89 Office Visit 06/18/2012 12:10p [facility] Internal Medicine Jill Plata 53389 250.02 - Kimberly Travis 311 781.91 Office Visit 05/19/2012 10:00a [facility] Internal Medicine Jill Plata 96915 250.02 - Kimberly Vale.Elizabeth 311 244.0 782.3 327.02 Office Visit 04/10/2012 10:30a [facility] Internal Medicine Jill Plata 02281 250.02 - Kimberly Travis 272.2 780.52 V10.87 244.0 735.4 Office Visit 03/25/2012 10:00a [facility] Internal Medicine Jill Plata 66003 250.02 - Amigo Kavin.Elizabeth 311 401.9 414.01 272.2 780.52 278.00 Office Visit 10/09/2011 1:45p [facility] Quincy Carrillo 06552 812.03 Of Reuben Vera 812.09 Office Visit 09/21/2011 9:00a [facility] Shanique Adorno 78200 812.00 Of Richard Travis Office Visit 09/18/2011 9:00a [facility] Aldair Fernandes M.D. 72715 812.09 Of Richard 812.00 Office Visit 09/06/2011 9:30a [facility] uQincy Carrillo 75665 812.09 Of Reuben Vera 812.00 Plan of Care 06/13/2018 - Andrea Diez M.D.Z48.89 Encounter for other specified surgical aftercareFollow up:As needed
--- NOTE | 2018-07-09 15:01 | RAD ---
INDICATION: Left ankle injury. TECHNIQUE: 2 views of the left ankle were obtained. FINDINGS: There is diffuse soft tissue swelling. There is an oblique slightly comminuted intra-articular fracture of the medial malleolus. The distal fragment is displaced lateral relative to the proximal fragment. There is also an oblique intra-articular fracture of the distal fibula. The distal fragment is displaced lateral and posterior approximately one half shaft diameter. There is widening of the ankle mortise and medial subluxation of the tibia relative to the talus. IMPRESSION: BIMALLEOLAR FRACTURE SUBLUXATION OF THE ANKLE.
[2018-07-09] MEDS ORDERED: NS 0.9% 1000 ML* 1,000 ML IV ONE (15:16)
[2018-07-09 15:33] LABS: ABS Basophils 0 10^3/ul (0-0.2); ABS Eosinophils 0.1 10^3/ul (0-0.6); ABS Lymphocytes 0.9 10^3/ul (1.0-4.8); ABS Monocytes 0.6 10^3/ul (0-0.8); ABS Nucleated RBC 0 10^3/ul; Eosinophil % 0.5 % (0-6); Hematocrit 39 % (35-47); Lymphocyte % 8.9 % (25-47); Mean Corpuscular HGB Conc 34 g/dl (31-36); Mean Corpuscular Hemoglobin 33 pg (27-31); Mean Corpuscular Volume 98 fL (80-97); Mean Platelet Volume 7.6 um3 (7.4-10.4); Nucleated Red Blood Cells % 0; Platelet Count 225 10^3/ul (150-450); Red Blood Count 3.93 10^6/ul (4.00-5.40); Red Cell Distribution Width 15 % (10.5-15); White Blood Count 10.6 10^3/ul (3.5-10.8)
[2018-07-09 15:45] LABS: INR 0.98 (0.77-1.02)
[2018-07-09 15:49] LABS: EGFR Non-African American 37.1 (>60)
[2018-07-09] MEDS ORDERED: Magnesium Sulfate 2 GM IV* 2 GM/50 ML BAG IVPB ONE (15:55)
[2018-07-09] MEDS ORDERED: Albuterol 0.5% CONC NEB.SOL* 5 MG/ML 20 ml BOT INH ONE (15:56)
[2018-07-09] MEDS ORDERED: fentaNYL* 50 MCG/ML 2 ML VIAL (100 MCG VIAL) IV SLOW PU ONE (15:58)
--- NOTE | 2018-07-09 16:09 | ED ---
Complex/Multi-Sys Presentation - HPI Summary HPI Summary: Patient presents with multiple symptoms today. She is here in the ED for left ankle pain and swelling after falling prior to arrival. She denies change in numbness of her feet as she does have diabetic neuropathy. Denies weakness or tingling but does have swelling and bruising and has difficulty moving her toes without pain. She denies any other injury to this area including her knee hip or back as a result of fall. This was her initial chief complaint however upon asking more questions she reveals she believes she had lightheadedness and possibly syncopized prior to the event of falling - reports feeling very weak before this happened. Currently she denies numbness, tingling, weakness or WAYNE, change in vision, slurred speech. She admits she's had progressive weakness over the past couple of days and had planned on going to her doctor's office today to have this evaluated. She's also had B/L lower extremity weakness and back pain since her surgery April [address] Diez. Initially she reported she felt better after surgery but now states she is concerned her legs are feeling weak. Difficult to discern if this is generalized body weakness or focal weakness of the lower extremities. reports she did not need her walker after surgery but has been relying on it heavily the past few weeks. She denies any change in bowel or bladder habits. She reports a one time episode of vomiting yesterday although admits this is not abnormal for her and she takes nausea medicine as needed. She's not quite sure but thinks she may have gastroparesis. She's also had multiple stents placed, has CHF, and COPD - uses breathing tx's at home but feels breathing is fine now. She reports she handled anesthesia well during her surgery in April. She has an allergy to morphine which includes body wide itching. She's had fentanyl in the past without difficulty. She admits her mouth is very dry today and she's not sure why. She has taken her pain meds which include gabapentin and others. Denies head injury with fall. - History Of Current Complaint Chief Complaint: EDExtremityLower Time Seen by Provider: 07/09/18 14:20 Hx Obtained From: Patient, Family/Paper Hanger - - Allergies/Home Medications Allergies/Adverse Reactions: Allergies Allergy/AdvReac Type Severity Reaction Status Date / Time morphine Allergy Severe Hives Verified 05/06/18 10:03 Penicillins Allergy Severe Rash And Verified 05/06/18 10:03 Itching propoxyphene Allergy Severe Hives Verified 05/06/18 10:03 PMH/Surg Hx/FS Hx/Imm Hx Previously Healthy: Yes Endocrine/Hematology History: Reports: Hx Diabetes - Insulin pump, and oral diabetic medications, Hx Thyroid Disease - Thyroid cancer 2009, Thyroidectomy Cardiovascular History: Reports: Hx Angina, Hx Congestive Heart Failure - 2017, Diastolic congestive heart failure, Hx Coronary Artery Disease - 14 stents placed, Hx Hypercholesterolemia, Hx Hypertension, Hx Myocardial Infarction, Hx Pacemaker/ICD - A2DR[address] SORIANO [employer] PACEMAKER, Sick Sinus Syndrome, Other Cardiovascular Problems/Disorders - CAD Denies: Hx Peripheral Vascular Disease, Hx Rheumatic Fever, Hx Valvular Heart Disease Respiratory History: Reports: Hx Asthma, Hx Chronic Obstructive Pulmonary Disease (COPD), Other Respiratory Problems/Disorders - wants her to have a sleep study done for sleep apnea Denies: Hx Pulmonary Edema, Hx Pulmonary Embolism GI History: Reports: Hx Gastroesophageal Reflux Disease - on medication, Hx Hiatal Hernia, Hx Irritable Bowel - on medication Denies: Other GI Disorders History: Reports: Other Problems/Disorders - urinates frequently, states due to furosemide Denies: Hx Dialysis, Hx Renal Disease Musculoskeletal History: Reports: Hx Arthritis Denies: Hx Tendonitis, Other Musculoskeletal History Sensory History: Reports: Hx Cataracts - Bilateral, removed 05/05/07, Hx Contacts or Glasses - Glasses, Hx Vision Problem Denies: Hx Hearing Aid, Hx Hearing Problem Opthamlomology History: Reports: Hx Cataracts - Bilateral, removed 05/05/07, Hx Contacts or Glasses - Glasses, Hx Vision Problem Neurological History: Reports: Hx Nerve Disease - Diabetic Neuropathy Denies: Other Neuro Impairments/Disorders Psychiatric History: Reports: Hx Depression - on medication Denies: Hx Panic Disorder - Cancer History Cancer Type, Location and Year: THYROID 2009 Hx Chemotherapy: Yes - Thyroid cancer Hx Radiation Therapy: No - Surgical History Surgery Procedure, Year, and Place: A2DR01 ADVISA DR SORIANO [employer] PAC[facility] . THYROIDECTOMY 2009. BILATERAL CATARACTS 2006. 05/04/11-4 CARDIAC STENTS [facility] V. 01/20/16-2 CARDIAC STENTS RESOLUTE INTEGRITY-ALL STENTS APPROVE FOR 1.5 OR 3T AND WILL BE SCANNED IN NORMAL MODE-INFO IN OTHER FACILITY INFO. BACK SURGERY MANY YEARS [id number] KNEE REPLACEMENT-BILATERAL FOOT SURGERY-Bunionectomy. Hysterectomy Hx Anesthesia Reactions: No Infectious Disease History: No Infectious Disease History: Denies: Hx of Known/Suspected MRSA, Traveled Outside the [place] in Last 30 Days - Family History Known Family History: Positive: Cardiac Disease - Brother with CAD/MA at 50 - Social History Occupation: Retired Lives: With Family - Alcohol Use: Occasionally Hx Substance Use: No Substance Use Type: Reports: None Hx Tobacco Use: Yes - not currently Smoking Status (MU): Former Smoker Type: Cigarettes Amount Used/How Often: 1 -2 PPD for 40 years Have You Smoked in the Last Year: No Review of Systems Positive: Fatigue Eyes: Negative ENT: Negative Cardiovascular: Negative Negative: Chest Pain Respiratory: Negative Negative: Shortness Of Breath Gastrointestinal: Negative Negative: Abdominal Pain, Vomiting, Diarrhea, Nausea Genitourinary: Negative Positive: Arthralgia, Myalgia, Decreased ROM, Edema Positive: Bruising Positive: Weakness - generalized Psychological: Normal All Other Systems Reviewed And Are Negative: Yes Physical Exam Triage Information Reviewed: Yes Vital Signs On Initial Exam: Initial Vitals Temp Pulse Resp BP Pulse Ox 97.5 F 63 17 99/43 95 07/09/18 14:08 07/09/18 14:08 07/09/18 14:08 07/09/18 14:08 07/09/18 14:08 Vital Signs Reviewed: Yes Appearance: Positive: Ill-Appearing - appears to have generalized pallor, dry oral mucosa, Pain Distress - mild to moderate Skin: Positive: Warm, Skin Color Reflects Adequate Perfusion, Dry - ecchymosis, edema about the Lt ankle - no skin breakdown Head/Face: Positive: Normal Head/Face Inspection Eyes: Positive: Normal, EOMI, ALEXA, Conjunctiva Clear ENT: Positive: Hearing grossly normal, Pharynx normal - mucosa very dry. Negative: Nasal congestion Dental: Positive: Other - DENTURES. Negative: Dental Fracture @ Neck: Positive: Supple, Nontender Respiratory/Lung Sounds: Positive: Clear to Auscultation, Breath Sounds Present. Negative: Rales, Rhonchi, Wheezes Cardiovascular: Positive: Pulses are Symmetrical in both Upper and Lower Extremities, S1 - paced, S2. Negative: Leg Edema Left, Leg Edema Right Abdomen Description: Positive: Nontender, Soft Musculoskeletal: Positive: Limited @ - Lt ankle - pain w/ moving toes (can wiggle) - does not move ankle which is edematous and deformed, Pain @ - ankle TTP Neurological: Positive: Sensory/Motor Intact - admits to baseline neuropathy, Alert, Oriented to Person Place, Time, CN Intact II-III, Facial Symmetry, Speech Normal - No slurring but lip gets caught on dentures as mouth is very dry - pt reports this occurs from time to time. Negative: Pronator Drift Present Psychiatric: Positive: Normal Diagnostics - Vital Signs Vital Signs Temp Pulse Resp BP Pulse Ox 07/09/18 14:08 97.5 F 63 17 99/43 95 - Laboratory Lab Results: Lab Results 07/09/18 07/09/18 07/09/18 Range/Units 15:23 15:23 15:23 WBC 10.6 (3.5-10.8) 10^3/ul RBC 3.93 L (4.00-5.40) 10^6/ul Hgb 13.0 (12.0-16.0) g/dl Hct 39 (35-47) % MCV 98 H (80-97) fL MCH 33 H (27-31) pg MCHC 34 (31-36) g/dl RDW 15 (10.5-15) % Plt Count 225 (150-450) 10^3/ul MPV 7.6 (7.4-10.4) um3 Neut % (Auto) 85.0 H (38-83) % Lymph % (Auto) 8.9 L (25-47) % [place] % (Auto) 5.3 (0-7) % Eos % (Auto) 0.5 (0-6) % Baso % (Auto) 0.3 (0-2) % Absolute Neuts (auto) 9.0 H (1.5-7.7) 10^3/ul Absolute Lymphs (auto) 0.9 L (1.0-4.8) 10^3/ul Absolute Monos (auto) 0.6 (0-0.8) 10^3/ul Absolute Eos (auto) 0.1 (0-0.6) 10^3/ul Absolute Basos (auto) 0 (0-0.2) 10^3/ul Absolute Nucleated RBC 0 10^3/ul Nucleated RBC % 0 INR (Anticoag Therapy) 0.98 (0.77-1.02) APTT 49.3 H (26.0-36.3) seconds Sodium 129 L (135-145) mmol/L Potassium 6.5 H* (3.5-5.0) mmol/L Chloride 95 L (101-111) mmol/L Carbon Dioxide 23 (22-32) mmol/L Anion Gap 11 (2-11) mmol/L BUN 31 H (6-24) mg/dL Creatinine 1.39 H (0.51-0.95) mg/dL Est GFR ( Amer) 44.8 (>60) Est GFR (Non-Af Amer) 37.1 (>60) BUN/Creatinine Ratio 22.3 H (8-20) Glucose 283 H (70-100) mg/dL Calcium 9.2 (8.6-10.3) mg/dL Magnesium 1.4 L (1.9-2.7) mg/dL Total Bilirubin 0.50 (0.2-1.0) mg/dL AST 10 L (13-39) U/L ALT 10 (7-52) U/L Alkaline Phosphatase 56 (34-104) U/L Troponin I Pending Total Protein 7.2 (6.4-8.9) g/dL Albumin 4.0 (3.2-5.2) g/dL Globulin 3.2 (2-4) g/dL Albumin/Globulin Ratio 1.3 (1-3) TSH Pending Result Diagrams: 07/09/18 15:23 07/09/18 15:23 Lab Statement: Any lab studies that have been ordered have been reviewed, and results considered in the medical decision making process. Complex Multi-Symp Course/Dx Course Of Treatment: Patient presented with left ankle pain and deformity after falling prior to arrival. This was initially her main complaint however after further investigation, she reports she's had progressive weakness over the past few weeks especially today. She reports lightheadedness with possible syncope prior to falling however she does not recall the details. She had a doctor's appointment today to follow up with Dr. Diez status post spine surgery in April 2018. She also plan to see her PCP today for her generalized weakness symptoms. Patient's ankle x-ray reveals a bimalleolar fracture of the left ankle with mild displacement. Discussed with Dr. Wilkins in regards to her other medical issues and she agrees to reduce and splint the ankle here in the emergency department prior to admission. Patient will be admitted as she appears dehydrated. Labs indicate normal H&H however she has a sodium of 129, potassium 6.5, chloride 95, bun 31, creatinine 1.39, magnesium 1.4, AST 10, troponin 0.01, TSH 1.56. She's also had an EKG, chest x-ray and brain CT (fall on plavix) ordered however results are pending. To initially treat her hyperkalemia, continuous albuterol was ordered. She was also ordered to have 500 mL of normal saline (a lower quantity was ordered due to her CHF). She reports an allergy to morphine of itching and so fentanyl 50 g was ordered ( Dr. Wilkins aware and approved). Dr. Wilkins, Dr. Hdz and myself will reduce ankle prior to admission - conscious sedation as appropriate however will take other medical conditions into consideration. Discussed w/ Dr. Chowdhury who agrees to admit. - Diagnoses Provider Diagnoses: Closed bimalleolar fracture of left ankle, Hyperkalemia, Hyponatremia, Hypomagnesemia, Generalized weakness, Syncope Discharge - Sign-Out/Discharge Documenting (check all that apply): Patient Departure - Discharge Plan Condition: Guarded Disposition: ADMITTED TO [facility] - Billing Disposition and Condition Condition: GUARDED Disposition: Admitted to [facility]
--- NOTE | 2018-07-09 16:14 | RAD ---
INDICATION: Syncope COMPARISON: May 09, 2018 TECHNIQUE: An AP portable view obtained at 1600 hours is submitted. FINDINGS: Bones/Soft Tissues: There are no acute bony findings. There is left-sided cardiac pacemaker, unchanged Cardiomediastinal: The cardiomediastinal silhouette is normal. Lungs: There are no infiltrates. Pleura: There are no pleural effusions. Other: None IMPRESSION: NO ACTIVE DISEASE.
[2018-07-09] MEDS ORDERED: Sodium Polystyrene ORAL.SOL* 15 GM/60 ML BTL PO ONE ×2 (16:42→21:17)
[2018-07-09] MEDS ORDERED: oxyCODONE TAB* 5 MG TAB PO PRN (16:53)
[2018-07-09] MEDS ORDERED: NS 0.9% 1000 ML* 1,000 ML IV SCH (17:00)
[2018-07-09] MEDS ORDERED: Lidocaine 1% INJ* 10 MG/ML 30 ML SDV INJ ONE (17:09)
[2018-07-09] MEDS ORDERED: traMADol TAB* 50 MG PO PRN (17:17)
[2018-07-09] MEDS ORDERED: Dextrose 50% Syringe 50 ML* 25 GM/50 ML SYRINGE IV PUSH PRN (17:27)
--- NOTE | 2018-07-09 17:40 | RAD ---
INDICATION: Traumatic displaced bimalleolar fracture status post external reduction. COMPARISON: Comparison is made with the prior study of the same date. TECHNIQUE: 3 views of the left ankle were obtained. FINDINGS: The bones are visualized through a plaster cast limiting much of the bony detail. The patient is status post external reduction of the previously noted bimalleolar fracture subluxation. The bones are in improved alignment and positioning. IMPRESSION: STATUS POST EXTERNAL REDUCTION AND IMPROVED ALIGNMENT AND POSITIONING.
--- NOTE | 2018-07-09 19:36 | CONSULT ---
Consult Consult: Orthopedic Surgery Consultation Date: 07/09/2018 Requesting Service: ER Chief Complaint: Left ankle pain. History: 72-year-old female who fell on the grass because she was lightheaded. She had immediate pain and deformity of the left ankle. No prior problems with the left ankle. She was brought into the emergency room by EMS. The pain is located at the left ankle and is constant moderate, sharp. Pain worse with ankle ROM and lessened when rested. Review of Systems: 14 pt ROS negative except for recent weakness and lightheadedness. PMH: CAD s/p 14 stents, sick sinus syndrome, pacemaker, CHF, HL, HTN, DM, h/o thyroid ca, GERD, depression, COPD, peripheral neuropathy, PSH: Recent lumbar spine surgery [place] [facility] [place], thyroidectomy, L TKA, multiple cardiac procedures and stents Medications: Levothyroxine, metformin, insulin, aspirin, nitroglycerin, metoprolol, amitiza, gabapentin, januvia, vitamin D, Symbicort, bupropion, amlodipine, losartan, rosuvastatin, Nexium, Ranolazine, Imdur, tramadol, albuterol, potassium, furosemide, Plavix Allergies:morphine, PCN, rifaximin SH: Lives with Lucas. Former smoker. No alcohol. FH: stroke, lung cancer, CAD Physical Examination: Constitutional: Temp Pulse Resp BP Pulse Ox 97.4 F 60 19 126/55 94 07/09/18 18:32 07/09/18 18:32 07/09/18 18:32 07/09/18 18:32 07/09/18 18:32 General appearance is healthy and non-septic in no acute distress. Cardiovascular: Pulse examination demonstrates positive pedal pulses with brisk capillary refill. There are no varicosities. Abdomen: Soft and nontender Lymphatic: No lymphadenopathy appreciated. Skin: Bilateral upper and lower extremity examination demonstrates no ulcerative lesions. Psychiatric / Neurological: Appropriate affect. Alert and oriented to person, place and time. There is no significant abnormality in coordination appreciated. Normoreflexive deep tendon reflex of the affected extremity. Musculoskeletal: Bilateral upper extremities and contralateral lower extremity show full range of motion with no evidence of instability and no tenderness with palpation and 5 /5 strength. There is no gross deformity. There is a deformity at the ankle Skin intact 5/5 motor strength with intact sensation to light touch There is no global swelling, edema, or varicosities. TTP at ankle Palpable DP pulse. Flexes and extends ankle and toes. Imaging: X-rays were obtained, and independently interpreted and show an ankle fracture dislocation Labs: WBC 10.6 HCT 39 Platelets 225 Cr 1.39 INR 0.98 Impression and Plan: Left ankle fracture dislocation. Verbal consent was obtained for an ankle hematoma block, ankle closed reduction and placement of a short leg plaster splint. The procedure was well tolerated and post-reduction xrays showed satisfactory alignment. We discussed both nonoperative and operative treatment options. My recommendation is surgical intervention. We discussed the risks/benefits and pros/cons of both options. After this discussion, we came to the decision that we would move forward with surgery. For now, nonweightbearing in the affected extremity, rest and elevation. We will make a plan for surgical fixation once she is cleared medically. I recommend chemical DVT prophylaxis. Samy Collins MD
--- NOTE | 2018-07-09 19:54 | HP ---
CC: Dr. Gordon * HISTORY AND PHYSICAL: DATE OF ADMISSION: 07/09/18 PROVIDER: Thi Ordaz NP ATTENDING PHYSICIAN: Brisa Chowdhury DO * (report dictated by Thi Ordaz NP). PRIMARY CARE PROVIDER: Dr. Gordon. CHIEF COMPLAINT: Fall, left ankle pain, generalized weakness. HISTORY OF PRESENT ILLNESS: Ms. Randhawa is a 72-year-old female with a past medical history of coronary artery disease, status post 14 stents; history of diastolic congestive heart failure; sick sinus syndrome, status post pacemaker; hyperlipidemia; hypertension; insulin-dependent type 2 diabetes; history of thyroid carcinoma, status post thyroidectomy with postsurgical hypothyroidism; morbid obesity; COPD; and recent decompressive lumbar laminectomy L2-L3 on 05/[address] Diez, who presented to the emergency department today with report of fall with subsequent left ankle pain and generalized weakness for 2 to 3 days. Ms. Randhawa reports today she was on her way to a doctor's appointment in which she was to see her primary care provider as well as Dr. Diez for a followup. The patient reports that both followup appointments were due to that over the past several weeks she has had increased generalized weakness, over the course of the last 3 days she feels that her weakness in her lower extremities has worsened. She also reports that she has noted she has been hyperglycemic with blood sugar in the 200s. Today, she ambulated with her walker out to get into the passenger's side of the car when she let go of her walker and went to reach to get into the car and she tripped landing on her left ankle. In the emergency department, she was found to have a left bimalleolar fracture and subluxation of the ankle. As well, she was found to have sodium of 129, potassium of 6.5, and a creatinine above her baseline at 1.39. In the emergency department, she was seen and evaluated and her is at the bedside. Again, she reports over the past 2 to 3 days, she has had increased generalized weakness. She denies any low back pain, numbness or weakness in her legs. Denies incontinence of urine or stool. She denies any fevers or chills. No upper respiratory symptoms such as cough, runny nose, headache, or sore throat. The patient reports "dark urine;" however, she denies increased urinary frequency or burning with urination. No noted hematuria. Denies abdominal pain. No nausea, vomiting, diarrhea. She reports at her baseline since taking the tramadol after her back surgery she reports constipation. She denies shortness of breath, cough, or chest pain. Denies lower extremity swelling or orthopnea. Denies body aches. She reports good appetite. PAST MEDICAL HISTORY: 1. Lumbar spinal stenosis L2-L3, status post decompressive lumbar laminectomy 05/07/18. 2. History of coronary artery disease, status post 14 stents. 3. Hyperlipidemia. 4. Hypertension. 5. Insulin-dependent type 2 diabetes in which she uses an insulin pump. 6. History of thyroid carcinoma, status post thyroidectomy with postsurgical hypothyroidism. 7. History of sick sinus syndrome, status post pacemaker placement in May 2017. 8. Diastolic congestive heart failure. 9. GERD. 10. Depression. 11. Morbid obesity. 12. Peripheral neuropathy. 13. COPD. MEDICATIONS: Home medications: 1. Lispro insulin pump. 2. Metformin 1000 mg p.o. b.i.d. 3. Norvasc 5 mg p.o. q.a.m. 4. Tramadol 50 mg p.o. b.i.d. 5. Januvia 100 mg p.o. q.a.m. 6. Rosuvastatin 20 mg p.o. q.p.m. 7. Ranolazine 1000 mg p.o. b.i.d. 8. Potassium chloride 20 mEq p.o. q.a.m. 9. Nitroglycerin 0.4 mg sublingual q.5 minutes p.r.n. 10. Nexium 40 mg p.o. q.a.m. 11. Metoprolol succinate XL 25 mg p.o. b.i.d. 12. Lubiprostone 8 mcg p.o. q.8 hours. 13. Losartan potassium 100 mg p.o. q.a.m. 14. Synthroid 200 mcg p.o. q.a.m. 15. Isosorbide mononitrate 60 mg p.o. q.a.m. 16. Gabapentin 600 mg p.o. t.i.d. 17. Lasix 20 mg p.o. q.a.m. 18. Plavix 75 mg p.o. q.a.m. 19. Vitamin D3 of 2000 units p.o. q.a.m. 20. Symbicort 160/4.5 one puff INH b.i.d. 21. Bupropion XL 300 mg p.o. q.a.m. 22. Aspirin 81 mg p.o. q.a.m. 23. Albuterol HFA inhaler 2 puffs INH q.4 hours p.r.n. ALLERGIES: MORPHINE causes severe hives; PENICILLIN, rash and itching; and PROPOXYPHENE causes severe hives. FAMILY HISTORY: The patient's mother in her 80s from a CVA. Father had lung cancer, dying in his 60s. The patient has significant family history with her brother having an PR in his 50s and another brother with coronary artery disease. She reports her sister has a pacemaker. SOCIAL HISTORY: The patient reports she quit smoking approximately 16 years ago , having a 50-pack year history. Denies alcohol use. She currently lives at home with her , Lucas, who is her healthcare proxy. The patient reports that she is a DNR. REVIEW OF SYSTEMS: A 14-point review of systems was performed. All the pertinent positives and negatives are mentioned in the history of present illness. Otherwise are negative. PHYSICAL EXAMINATION GENERAL APPEARANCE: A 72-year-old female, lying in the emergency department stretcher, alert and oriented x3, in no acute distress. VITAL SIGNS: Temperature 97.5, heart rate 63, respirations 18, pulse oximetry 98 % on room air, blood pressure 130/72. HEENT: Head is normocephalic, atraumatic. Pupils are equal and reactive to light. Oropharynx is clear. Dry mucous membranes. NECK: Supple. LUNGS: Clear to auscultation bilaterally. Good aeration throughout. No accessory muscle use. CARDIAC: S1, S2. Regular rate and rhythm. No murmur, rub, or gallop appreciated. No lower extremity edema noted. ABDOMEN: Obese, soft, nontender, nondistended. Normal bowel sounds throughout. No CVA tenderness. EXTREMITIES: The patient's left ankle is resting on a pillow with an ice pack. She is able to wiggle her toes. Extremity is warm and pink and well perfused. There is noted generalized edema of the ankle and foot. 2+ DP pulses bilaterally. All other extremities, she has full range of motion. Strength is 5 /5 throughout. She is guarded with her left ankle. NEURO: Alert and oriented x3. No gross focal deficits noted. Speech is clear. Tongue is midline. No facial droop noted. [employer] Equipment [employer]r are equal. Finger-to- nose test intact. No pronator drift. DIAGNOSTIC STUDIES/LAB DATA: WBC is 10.6, RBC 3.93, HGB 13.0, HCT 39, MCV 98, MCH 33, MCHC 34, RDW 15, platelet count 225. INR 0.98, PTT 49.3. Sodium 129, potassium 6.5, chloride 95, carbon dioxide 23, anion gap 11, BUN 31, creatinine 1.39, glucose 283, calcium 9.2, magnesium 1.9. Total bilirubin 0.50, AST 10, ALT 10, alkaline phosphatase 56. Troponin 0.01. Total protein 7.2, albumin 4.0. TSH 1.56. Ankle x-ray, impression: Bimalleolar fracture and subluxation of the left ankle. EKG pending. ASSESSMENT AND PLAN: Ms. Randhawa is a 72-year-old female with a complex past medical history who had a mechanical fall today while getting in her car, unfortunately suffering a fractured left ankle. As well, Ms. Randhawa reports 2 to 3 days of not feeling well with generalized weakness, found to be hyponatremic, hyperkalemic and acute kidney injury. 1. Left ankle fracture. Disposition per orthopedic team. Dr. Collins is seeing the patient in the emergency department and will reduce the ankle and recommends surgery. Pain management, the patient reports that she has tolerated tramadol well in the past. The patient recently had spinal surgery in which she did have some slow recovery after surgery and her hospitalization was complicated by developing pneumonia as well as CSF leak. The patient's preoperative risk score places her at a class 4 risk placing her at 11% risk of major cardiac event. The patient's last echocardiogram was in May 2017, which showed an EF of 50% to 55% with normal left ventricular systolic function, but did show abnormal left ventricular diastolic filling consistent with impaired relaxation, there is mild aortic stenosis and mild mitral stenosis and regurgitation with trace tricuspid regurgitation. The patient reports she occasionally has angina, which she has had for many years. She denies any worsening symptoms of chest pain or shortness of breath with exertion. No recent episodes of congestive heart failure. The patient certainly is at high risk due to her comorbidities, but I do not recommend any further cardiac testing at this time. However, due to the patient's hyperkalemia, this should be resolved prior to going to surgery. I will continue to monitor her on telemetry to optimize her cardiac function. 2. Hyperkalemia. The patient will be monitored on telemetry. The emergency department gave her an albuterol nebulizer. She will receive 15 g of Kayexalate and repeat her potassium this evening. Repeat EKG in the morning. The patient does take potassium chloride as a daily supplement. This will be held. 3. Acute renal failure. The patient's creatinine is 1.39, much above her baseline of 0.68, suspect in the setting of dehydration. The patient appears very dry on exam and also presents with a sodium of 129. Plan to give IV fluids overnight and repeat BMP in the morning. Due to being a very hot week with 90-degree weather, the patient also reports that she only drinks 2 small glasses of water a day. 4. Hypomagnesemia. Plan to replace magnesium. Repeat level in the morning. 5. Insulin-dependent type 2 diabetes. Plan to hold the patient's insulin pump , start fingerstick blood glucose a.c. and h.s. with lispro sliding scale. The patient reports that she has been hyperglycemic the last 2 to 3 days, unclear at this point if she has an infection; however, there is no obvious infection noted on evaluation or during exam. We will send urine and blood cultures to further investigate. Hold oral diabetic medications, metformin, and Januvia. 6. Coronary artery disease. The patient has had significant cardiac disease with reporting 14 stents. Her med rec needs to be completed; however, in reviewing with the patient, she will continue on her beta-nadya, isosorbide mononitrate, Norvasc, and plan to hold her Plavix and aspirin for surgery. 7. Hypertension. Her blood pressures are stable in the emergency department systolically in the 120s and 130s on my evaluation. We will continue her home medications. 8. Hypothyroidism. TSH within normal limits. Continue Synthroid 200 mcg p.o. q.a.m. 9. Peripheral neuropathy. Continue gabapentin 600 mg p.o. t.i.d. 10. History of diastolic congestive heart failure. At this time, she appears dry. Plan to hold daily Lasix. 11. Gastroesophageal reflux disease. Continue Nexium. 12. Chronic obstructive pulmonary disease. Does not appear to be in exacerbation. Continue Symbicort and albuterol HFA inhaler p.r.n. 13. Depression. Continue bupropion XL 300 mg p.o. q.a.m. 14. Hyperlipidemia. Continue rosuvastatin or may auto sub. 15. DVT prophylaxis: Heparin subcu. 16. Code status: DNR. TIME SPENT: Approximately 75 minutes was spent on this admission. THI ORDAZ NP [id number]/CPS #: [id number] MAGALY
[2018-07-09] MEDS ORDERED: Magnesium Sulfate 1 GM IV* 1 GM/100 ML BAG IV ONE (20:00)
[2018-07-09] MEDS ORDERED: Insulin LISPRO* 1 UNITS UNIT SUBCUT SCH (21:00)
[2018-07-09 21:09] LABS: EGFR Non-African American 46.6 (>60)
[2018-07-09] MEDS: Metoprolol Succinate XL TAB* 25 MG PO SCH (21:25)
[2018-07-09] MEDS: Gabapentin CAP(*) 300 MG PO SCH (21:26)
[2018-07-09] MEDS: Heparin VIAL(*) 5000 UNITS/ML VIAL (FIVE THOUSAND) SUBCUT SCH (21:27)
--- NOTE | 2018-07-09 21:47 | RAD ---
EXAM: CT Head Without Intravenous Contrast EXAM DATE/TIME: 07/09/2018 9:01 PM CLINICAL HISTORY: 72 years old, female; Signs and symptoms; Syncope and collapse; Additional info: Fall on plavix, syncope TECHNIQUE: Axial computed tomography images of the head/brain without intravenous contrast. All CT scans at this facility use at least one of these dose optimization techniques: automated exposure control; mA and/or kV adjustment per patient size (includes targeted exams where dose is matched to clinical indication); or iterative reconstruction. COMPARISON: BRAIN [facility] CT BRAIN W/W 09/06/2017 2:37 PM FINDINGS: Brain: Decreased attenuation of the supratentorial white matter is likely secondary to chronic microvascular ischemia. No hemorrhage. Ventricles: Ventricular and subarachnoid spaces are age appropriate. Bones/joints: Unremarkable. No acute fracture. Soft tissues: Unremarkable. Vasculature: Intracranial vascular calcification. Sinuses: Unremarkable as visualized. No acute sinusitis. Mastoid air cells: Unremarkable as visualized. No mastoid effusion. IMPRESSION: No acute intracranial abnormality.
[2018-07-09] MEDS: Acetaminophen TAB* 325 MG PO PRN (22:37)
[2018-07-10] MEDS: oxyCODONE/Acetamin 5/325 MG* TAB PO PRN ×4 (02:24→21:25)
[2018-07-10 02:28] LABS: Urine Appearance Clear; Urine Blood Negative (Negative); Urine Color Yellow; Urine Ketones Negative (Negative); Urine Protein Negative (Negative); Urine Red Blood Cell Absent (Absent); Urine Specific Gravity 1.013 (1.010-1.030); Urine Urobilinogen Negative (Negative); Urine White Blood Cell 1+(6-10/hpf) (Absent)
[2018-07-10 05:13] LABS: ABS Basophils 0 10^3/ul (0-0.2); ABS Eosinophils 0.1 10^3/ul (0-0.6); ABS Lymphocytes 1.7 10^3/ul (1.0-4.8); ABS Monocytes 0.6 10^3/ul (0-0.8); ABS Neutrophils 3.9 10^3/ul (1.5-7.7); ABS Nucleated RBC 0 10^3/ul; Eosinophil % 1.3 % (0-6); Hematocrit 32 % (35-47); Hemoglobin 10.9 g/dl (12.0-16.0); Lymphocyte % 26.4 % (25-47); Mean Corpuscular HGB Conc 35 g/dl (31-36); Mean Corpuscular Hemoglobin 33 pg (27-31); Mean Corpuscular Volume 96 fL (80-97); Mean Platelet Volume 7.6 um3 (7.4-10.4); Nucleated Red Blood Cells % 0.1; Platelet Count 182 10^3/ul (150-450); Red Blood Count 3.29 10^6/ul (4.00-5.40); Red Cell Distribution Width 15 % (10.5-15); White Blood Count 6.3 10^3/ul (3.5-10.8)
[2018-07-10 05:28] LABS: EGFR Non-African American 70.1 (>60)
[2018-07-10] MEDS: Levothyroxine TAB* 100 MCG TAB PO SCH (06:25)
[2018-07-10] MEDS: Heparin VIAL(*) 5000 UNITS/ML VIAL (FIVE THOUSAND) SUBCUT SCH ×3 (06:26→20:40)
[2018-07-10] MEDS ORDERED: Magnesium Sulfate 1 GM IV* 1 GM/100 ML BAG IV ONE (07:06)
[2018-07-10] MEDS: Isosorbide Mononitrate ER TAB* 60 MG PO SCH (08:05)
[2018-07-10] MEDS: BuPROPion XL* 300 MG TAB.XL PO SCH (08:06)
[2018-07-10] MEDS: Metoprolol Succinate XL TAB* 25 MG PO SCH ×2 (08:06→21:07)
[2018-07-10] MEDS: Gabapentin CAP(*) 300 MG PO SCH ×3 (08:07→21:06)
[2018-07-10] MEDS: amLODIPine TAB* 5 MG PO SCH (08:08)
--- NOTE | 2018-07-10 08:09 | PN ---
Subjective Date of Service: 07/10/18 Interval History: . Patient reports she had a hard time sleeping d/t pain but overall states she is "doing well". She denies CP/SOB. Denies fever/chills. Denies any difficulty urinating. Denies dysuria. No abdominal pain. Denies N/V/D. Objective Active Medications: Acetaminophen (Tylenol Tab*) 650 mg PO Q6H PRN PRN Reason: FEVER/PAIN Last Admin: 07/09/18 22:37 Dose: 650 mg Amlodipine Besylate ([facility]asc Tab*) [facility] [place] Admin: 07/10/18 08:08 Dose: 5 mg Bupropion HCl (Bupropion Xl*) [facility] [place] Last Admin: 07/10/18 08:06 Dose: 300 mg Dextrose (D50w Syringe 50 Ml*) 12.5 gm IV PUSH .FOR FS < 60 - SS PRN PRN Reason: FS < 60 Gabapentin (Neurontin Cap(*)) 600 mg PO TID [facility] Last Admin: 07/10/18 08:07 Dose: 600 mg Heparin Sodium (Porcine) (Heparin Vial(*)) 5,000 units SUBCUT Q8HR [facility] Last Admin: 07/10/18 06:26 Dose: 5,000 units Isosorbide Mononitrate (Imdur Er Tab*) [facility] [place] Admin: 07/10/18 08:05 Dose: 60 mg Levothyroxine Sodium (Synthroid Tab*) 200 mcg PO QA@0600 [facility] Last Admin: 07/10/18 06:25 Dose: 200 mcg Metoprolol Succinate (Toprol Xl Tab*) 25 mg PO BID [facility] Last Admin: 07/10/18 08:06 Dose: 25 mg Oxycodone/Acetaminophen (Percocet 5/325 Tab*) 1 tab PO Q6H PRN PRN Reason: PAIN Last Admin: 07/10/18 08:04 Dose: 1 tab Vital Signs - 8 hr 07/10/18 07/10/18 07/10/18 02:24 03:58 04:27 Temperature 97.5 F Pulse Rate 70 Respiratory 16 20 18 Rate Blood Pressure 140/54 (mmHg) O2 Sat by Pulse 95 Oximetry 07/10/18 07/10/18 07/10/18 07:32 08:04 08:07 Temperature 97.4 F Pulse Rate 69 Respiratory 16 20 20 Rate Blood Pressure 140/54 (mmHg) O2 Sat by Pulse 94 Oximetry Oxygen Devices in Use Now: None Appearance: elderly female laying in bed in NAD, A+O x3 Eyes: No Scleral Icterus, PERRLA Ears/Nose/Mouth/Throat: NL Teeth, Lips, Gums, Mucous Membranes Moist Neck: NL Appearance and Movements; NL JVP Respiratory: Symmetrical Chest Expansion and Respiratory Effort, Clear to Auscultation Cardiovascular: NL Sounds; No Murmurs; No JVD, RRR, No Edema Abdominal: NL Sounds; No Tenderness; No Distention, - - obese Extremities: No Edema - left ankle in cast reseting on pillow - extremity is warm and well perfused. wiggles toes. , No Clubbing, Cyanosis, - Neurological: Alert and Oriented x 3, NL Sensation, NL Muscle Strength and Tone Lines/Tubes/Other Access: Clean, Dry and Intact Peripheral IV Nutrition: Taking PO's Result Diagrams: 07/10/18 05:02 07/10/18 05:02 Additional Lab and Data: Lab Results 07/09/18 07/09/18 07/09/18 Range/Units 15:23 15:23 15:23 WBC 10.6 (3.5-10.8) 10^3/ul RBC 3.93 L (4.00-5.40) 10^6/ul Hgb 13.0 (12.0-16.0) g/dl Hct 39 (35-47) % MCV 98 H (80-97) fL MCH 33 H (27-31) pg MCHC 34 (31-36) g/dl RDW 15 (10.5-15) % Plt Count 225 (150-450) 10^3/ul MPV 7.6 (7.4-10.4) um3 Neut % (Auto) 85.0 H (38-83) % Lymph % (Auto) 8.9 L (25-47) % [place] % (Auto) 5.3 (0-7) % Eos % (Auto) 0.5 (0-6) % Baso % (Auto) 0.3 (0-2) % Absolute Neuts (auto) 9.0 H (1.5-7.7) 10^3/ul Absolute Lymphs (auto) 0.9 L (1.0-4.8) 10^3/ul Absolute Monos (auto) 0.6 (0-0.8) 10^3/ul Absolute Eos (auto) 0.1 (0-0.6) 10^3/ul Absolute Basos (auto) 0 (0-0.2) 10^3/ul Absolute Nucleated RBC 0 10^3/ul Nucleated RBC % 0 INR (Anticoag Therapy) 0.98 (0.77-1.02) APTT 49.3 H (26.0-36.3) seconds Sodium 129 L (135-145) mmol/L Potassium 6.5 H* (3.5-5.0) mmol/L Chloride 95 L (101-111) mmol/L Carbon Dioxide 23 (22-32) mmol/L Anion Gap 11 (2-11) mmol/L BUN 31 H (6-24) mg/dL Creatinine 1.39 H (0.51-0.95) mg/dL Est GFR ( Amer) 44.8 (>60) Est GFR (Non-Af Amer) 37.1 (>60) BUN/Creatinine Ratio 22.3 H (8-20) Glucose 283 H (70-100) mg/dL Calcium 9.2 (8.6-10.3) mg/dL Magnesium 1.4 L (1.9-2.7) mg/dL Total Bilirubin 0.50 (0.2-1.0) mg/dL AST 10 L (13-39) U/L ALT 10 (7-52) U/L Alkaline Phosphatase 56 (34-104) U/L Troponin I Pending Total Protein 7.2 (6.4-8.9) g/dL Albumin 4.0 (3.2-5.2) g/dL Globulin 3.2 (2-4) g/dL Albumin/Globulin Ratio 1.3 (1-3) TSH Pending Assess/Plan/Problems-Billing Assessment: Ms. Randhawa is a 72-year-old female with a past medical history of coronary artery disease, status post 14 stents; history of diastolic congestive heart failure; sick sinus syndrome, status post pacemaker; hyperlipidemia; hypertension; insulin-dependent type 2 diabetes; history of thyroid carcinoma, status post thyroidectomy with postsurgical hypothyroidism; morbid obesity; COPD ; and recent decompressive lumbar laminectomy L2-L3 on 05/07/[address] Diez , who presented to the emergency department today with report of fall with subsequent left ankle pain and generalized weakness for 2 to 3 days. - Patient Problems (1) Ankle fracture, left Comment: - Plan for OR today. Dispo per Ortho team - the patient is medically optimized to proceed with surgery. Electrolyte abnormalities have resolved. - NPO - start gentle IVFs (2) Weakness Comment: - unclear etiology of weakness prior to her fall - no obvious sign of infection. She appeared very dehydrated on admission and presented with hyperkalemia which could contributed to her not feeling well. Today besides her left ankle pain she reports she feels better. (3) Electrolyte abnormality Comment: Hyperkalemia resolved - suspect secondary to dehysration, potassium supplementation Mag replaced this am. Repeat BMP + Mg in am (4) ARF (acute renal failure) Comment: resolved after gentle IVF. (5) GERD (gastroesophageal reflux disease) Comment: protonix (6) CAD (coronary artery disease) Comment: No CP. Continue Hold ASA/Plavix for surgery restrated as soon as Ortho clears. Continue Atorvastatin, Metoprolol, norvasc, Ranolazine and Imdur - hold losartan and lasix (7) COPD (chronic obstructive pulmonary disease) Comment: No exacerbation. Continue dulera and albuterol. (8) Diabetes Comment: - type 2 on insulin pump with Januvia and metformin at home. -insulin pump d/c'd - continue lispro SS with FSBG Q4 hr (9) HLD (hyperlipidemia) Comment: Continue Lipitor. (10) HTN (hypertension) Comment: stable continue norvasc, Imdur, BB (11) DVT prophylaxis Comment: HSQ - hold prior to surgery Status and Disposition: Inpatient with fx left ankle requiring surgical intervention. Disposition to be decided post-op
[2018-07-10] MEDS ORDERED: Dextrose 50% Syringe 50 ML* 25 GM/50 ML SYRINGE IV PUSH PRN (08:15)
[2018-07-10] MEDS: Insulin LISPRO* 1 UNITS UNIT SUBCUT SCH ×4 (09:35→22:28)
[2018-07-10] MEDS: NS 0.9% 1000 ML* 1,000 ML IV SCH (13:00)
--- NOTE | 2018-07-10 13:41 | PN ---
Cardiology Progress Note Date of Service: 07/10/18 attention coders please do not bill for this encounter patient needs ankle surgery, not pacemaker dependent no changes or precautions for pacemaker needed
[2018-07-10] MEDS ORDERED: fentaNYL* 50 MCG/ML 2 ML VIAL (100 MCG VIAL) IV ONE ×2 (15:13→15:16)
[2018-07-10] MEDS ORDERED: Morphine VIAL* 10 MG/ML 1 ML VIAL ONE (15:13)
[2018-07-10] MEDS ORDERED: fentaNYL* 50 MCG/ML 2 ML VIAL (100 MCG VIAL) ONE ×2 (15:20→16:47)
[2018-07-10] MEDS ORDERED: Clindamycin 900 MG IVPREMIX(* 900 MG/50 ML SDV IV ONE (16:09)
[2018-07-10] MEDS ORDERED: Rocuronium* 10 MG/ML VIAL ONE (16:47)
[2018-07-10] MEDS ORDERED: Etomidate* 2 MG/ML 10 ML VIAL ONE (16:49)
[2018-07-10] MEDS ORDERED: Ropivacaine* 2 MG/ML 20 ML VIAL (0.2%) ONE (17:01)
[2018-07-10] MEDS ORDERED: ROPIVACAINE 5 MG/ML 30 ML BTL (0.5%) ONE (17:01)
[2018-07-10] MEDS ORDERED: HYDROmorphone INJ1* 1 MG/ML SYRINGE ONE (17:57)
[2018-07-10] MEDS ORDERED: Propofol* 10 MG/ML 20 ML BTL IV PUSH ONE (18:13)
[2018-07-10] MEDS ORDERED: Lidocaine 2% PF * 5 ML VIAL ONE (18:13)
[2018-07-10] MEDS ORDERED: Phenylephrine INJ* 10 MG/ML 1 ML VIAL (10 MG) ONE (18:13)
[2018-07-10] MEDS ORDERED: fentaNYL* 50 MCG/ML 2 ML VIAL (100 MCG VIAL) IV PRN (18:22)
[2018-07-10] MEDS ORDERED: DiMENhydriNATE IV* 50 MG/ML VIAL IV PUSH PRN (18:22)
[2018-07-10] MEDS ORDERED: HYDROmorphone INJ1* 1 MG/ML SYRINGE IV PRN (18:22)
[2018-07-10] MEDS ORDERED: diPHENhydraMINE IV* 50 MG/ML 1 ml VIAL (BENADRYL) IV PRN (18:22)
[2018-07-10] MEDS ORDERED: Ondansetron INJ* 2 MG/ML VIAL IV PRN (18:22)
[2018-07-10] MEDS ORDERED: Naloxone* 0.4 MG/ML 1 ML VIAL IV PRN (18:22)
[2018-07-10] MEDS ORDERED: Sugammadex * 200 MG/2 ML VIAL IV PUSH ONE (18:28)
[2018-07-10] MEDS ORDERED: Ondansetron INJ* 2 MG/ML VIAL ONE (18:35)
[2018-07-10] MEDS ORDERED: HYDROmorphone INJ* 1 MG/ML CARPUJECT SYRINGE IV SLOW PU PRN (19:04)
--- NOTE | 2018-07-10 19:13 | OP ---
Operative Report - Blank - Operative Report Date of Operation: 07/10/18 Note: PATIENT: Taylor Randhawa DATE OF : 1945 DATE OF SURGERY: 07/10/2018 SURGEON: Samy Collins MD [place] DISPENSER: SHARON Webb, whos assistance was necessary for positioning, retraction, help with instrumentation, and closure. ANESTHESIOLOGIST: Dr. Montez PREOPERATIVE DIAGNOSIS: Left bimalleolar ankle fracture POSTOPERATIVE DIAGNOSIS: Left bimalleolar ankle fracture OPERATION: 1. Left bimalleolar ankle fracture open reduction and internal fixation. 2. Left distal tibia-fibula syndesmosis open reduction and internal fixation. ANESTHESIA: GETA IMPLANTS: Arthrex ankle fracture set plates and screws TOURNIQUET TIME: Less than 1 hour with a well-padded thigh tourniquet at 250mmHg SPECIMENS: none ESTIMATED BLOOD LOSS: minimal COMPLICATIONS: none STATUS: Stable from the operating room to the recovery room and then back to the medical floor INDICATIONS FOR PROCEDURE: Taylor sustained a left bimalleolar ankle fracture dislocation. Both operative and non operative treatment alternatives were reviewed. Further, the nature and risks of surgery were reviewed in careful detail, in the office as well as the pre-operative holding area. Our discussions regarding the risks of surgery included, but were not limited to, infection, wound problems, nerve injury, neuroma, RSD, persistent symptoms, blood clot, nonunion, malunion, post- traumatic arthritis, hardware failure, failure of the surgery, and even the remote chance of catastrophic complication, including loss of limb. DESCRIPTION OF PROCEDURE: The patient was seen in the preoperative holding unit and informed written consent was obtained. The appropriate extremity was marked. The patient was then brought to the operating room and carefully positioned on the operating room table. Anesthesia was induced. All bony prominences were padded with great care. A well-padded thigh tourniquet was placed. A chlorhexidine based pre- scrub was performed followed by a chloraprep prep and drape in standard sterile fashion. A surgical safety pause was then conducted in which we confirmed the appropriate patient, extremity, planned procedure, availability of equipment, indication and administration of prophylactic antibiotics, and DVT prophylaxis in the form of a compression boot on the non-surgical extremity. I began with Esmarch exsanguination of the limb and inflated the tourniquet. I then utilized a laterally based incision overlying the distal fibula. Great care was taken to protect the superficial peroneal nerve, which was not visualized within the field of view. I dissected down through the soft tissue layers to expose the distal fibula. I then exposed the fracture. There was significant comminution of the fracture. Her bone was of very poor quality. Fracture hematoma was removed. I gained adequate reduction, given the degree of comminution, utilizing a pointed reduction clamp. I placed an anatomic Arthrex plate laterally and then confirmed the reduction and the position of the plate fluoroscopically. I placed screws to hold the plate to the bone. Given the very poor quality of her bone, diabetes, and likely difficulty with weightbearing restrictions, I decided to place syndesmotic screws. A large pointed reduction clamp was used to hold the syndesmosis reduced and two 3.5 mm syndesmotic screws were placed. The provisional fixation was removed and then I again confirmed fluoroscopically the appropriate position of the plate and screw lengths. At this point, I provisionally tacked the lateral incision closed while I turned my attention medially. I made an approximately 4cm incision over the medial malleolus. The fracture was exposed and hematoma was removed. Again, there was significant comminution of the fracture. Reduction of the medial malleolar fracture was obtained with a pointed reduction clamp. I placed guidewires for 4.0 mm cannulated screws. I confirmed the position of the guidewires fluoroscopically. I then overdrilled one of the wires and placed a partially threaded 4.0 mm cannulated screw. I then removed the guidewires and obtained fluoroscopic images. At this point, we irrigated copiously and then closed in layers meticulously utilizing 3-0 Monocryl for the deep and subdermal layers and quyen for the skin. A sterile dressing was then applied followed by a splint with the ankle in a neutral position. The patient was then awakened from anesthesia and transferred to the recovery room in stable condition. There were no complications. All needle and sponge counts were correct at the end of the case. ATTESTATION: I attest I was present and scrubbed and performed the critical portions of the procedure myself. POSTOPERATIVE PLAN: The postop plan is for [id number] for an anticipated duration of 8 weeks. From months 2-3, WBAT in the boot. Months 3-4 in regular shoes with an ankle brace. Follow-up will be in 2 weeks.
[2018-07-10] MEDS ORDERED: RANOLAZINE 500 MG PO SCH (21:00)
[2018-07-10] MEDS: Atorvastatin* 40 MG TAB PO SCH (21:06)
[2018-07-11] MEDS: oxyCODONE/Acetamin 5/325 MG* TAB PO PRN ×3 (01:25→19:57)
[2018-07-11] MEDS: Insulin LISPRO* 1 UNITS UNIT SUBCUT SCH ×6 (01:25→19:58)
[2018-07-11] MEDS ORDERED: HYDROmorphone INJ1* 1 MG/ML SYRINGE IV SLOW PU PRN (01:31)
[2018-07-11] MEDS: Clindamycin 600 MG IVPREMIX(* 600 MG/50 ML SDV IV SCH ×2 (01:39→11:11)
[2018-07-11] MEDS: Heparin VIAL(*) 5000 UNITS/ML VIAL (FIVE THOUSAND) SUBCUT SCH ×3 (04:57→20:04)
[2018-07-11] MEDS: Levothyroxine TAB* 100 MCG TAB PO SCH (05:10)
[2018-07-11 05:40] LABS: ABS Basophils 0 10^3/ul (0-0.2); ABS Eosinophils 0.1 10^3/ul (0-0.6); ABS Lymphocytes 1.3 10^3/ul (1.0-4.8); ABS Monocytes 0.9 10^3/ul (0-0.8); ABS Neutrophils 5.3 10^3/ul (1.5-7.7); ABS Nucleated RBC 0 10^3/ul; Eosinophil % 1.3 % (0-6); Hematocrit 34 % (35-47); Hemoglobin 11.4 g/dl (12.0-16.0); Lymphocyte % 16.7 % (25-47); Mean Corpuscular HGB Conc 33 g/dl (31-36); Mean Corpuscular Hemoglobin 33 pg (27-31); Mean Corpuscular Volume 99 fL (80-97); Nucleated Red Blood Cells % 0.1; Platelet Count 158 10^3/ul (150-450); Red Blood Count 3.46 10^6/ul (4.00-5.40); Red Cell Distribution Width 15 % (10.5-15); White Blood Count 7.5 10^3/ul (3.5-10.8)
[2018-07-11 05:59] LABS: EGFR Non-African American 76.7 (>60)
[2018-07-11] MEDS ORDERED: Magnesium Sulfate IV* 3 GM in NS 0.9% 100 ML* 100 ML IVPB ONE (07:28)
--- NOTE | 2018-07-11 07:58 | RAD ---
INDICATION: Left ankle ORIF COMPARISON: July 09, 2018 FINDINGS: 60.2 seconds of fluoroscopy were provided for the orthopedics department. Fluoroscopic spot imaging of the left ankle were obtained for operative control. CPT II Codes: G9500 (fluoro time doc)
[2018-07-11] MEDS: Metoprolol Succinate XL TAB* 25 MG PO SCH ×2 (09:05→19:56)
[2018-07-11] MEDS: amLODIPine TAB* 5 MG PO SCH (09:06)
[2018-07-11] MEDS: Isosorbide Mononitrate ER TAB* 60 MG PO SCH (09:06)
[2018-07-11] MEDS: Gabapentin CAP(*) 300 MG PO SCH ×3 (09:06→19:56)
[2018-07-11] MEDS: BuPROPion XL* 300 MG TAB.XL PO SCH (09:06)
[2018-07-11] MEDS: Acetaminophen TAB* 325 MG PO PRN ×2 (09:42→15:52)
--- NOTE | 2018-07-11 11:19 | PN ---
Progress Note - Progress Note Date of Service: 07/11/18 SOAP: Subjective: [Pt seen lying in bed today. Complains of some pain in the left ankle. States that medications are helping to manage the pain. Denies any chest pain, SOB, nausea or vomiting. ] Objective: [General: A&O x3, NAD MSK, LLE: Dressing is c/d/i. Pt is able to wiggle toes. Full sensation to light touch in all toes. Cap refill is less than 2 secs. ] Vital Signs Temp 98.0 F 07/11/18 07:52 Pulse 77 07/11/18 07:52 Resp 18 07/11/18 10:39 BP 126/57 07/11/18 07:52 Pulse Ox 96 07/11/18 08:00 Intake & Output 07/10/18 07/11/18 07/11/18 18:59 06:59 18:59 Intake Total 0 699.1 0 Output Total 800 30 Balance -800 669.1 0 Intake: IV Fluids 699.1 ABX - CLINDAMYCIN 54.1 LR 500 NS (0.9%) 145 Oral 0 0 0 Output: Urine 800 0 Estimated Blood Loss 30 Other: Estimated Void Large # Bowel Movements 0 # Voids 1 0 Assessment: [S/P 1. Left bimalleolar ankle fracture open reduction and internal fixation. 2. Left distal tibia-fibula syndesmosis open reduction and internal fixation.] Plan: [Continue with current pain medication NWB LLE Heparin for anticoagulation Hospitalist to evaluate ]
[2018-07-11] MEDS ORDERED: Insulin GLARGINE(*) 1 UNITS UNIT SUBCUT ONE (11:21)
--- NOTE | 2018-07-11 11:21 | PN ---
Subjective Date of Service: 07/11/18 Interval History: patient reports she feels better today compared to last night but reports left ankle pain 4/10. She denies fever/chills. Reports her appetite is improving. no abdominal pain/N/V/D. Denies difficulty urinating. She does not feel that she will be able to go home and would like to go to rehab Objective Active Medications: Acetaminophen (Tylenol Tab*) 650 mg PO Q6H PRN PRN Reason: FEVER/PAIN Last Admin: 07/11/18 09:42 Dose: 650 mg Amlodipine Besylate (Norvasc Tab*) 5 mg PO QAM [facility] Last Admin: 07/11/18 09:06 Dose: 5 mg Atorvastatin Calcium (Lipitor*) 40 mg PO QPM [facility]; Protocol Last Admin: 07/10/18 21:06 Dose: 40 mg Bupropion HCl (Bupropion Xl*) 300 mg PO QAM [facility] Last Admin: 07/11/18 09:06 Dose: 300 mg Dextrose (D50w Syringe 50 Ml*) 12.5 gm IV PUSH .FOR FS < 60 - SS PRN PRN Reason: FS < 60 Gabapentin (Neurontin Cap(*)) 600 mg PO TID [facility] Last Admin: 07/11/18 09:06 Dose: 600 mg Heparin Sodium (Porcine) (Heparin Vial(*)) 5,000 units SUBCUT Q8HR [facility] Last Admin: 07/11/18 04:57 Dose: Not Given Hydromorphone HCl (Dilaudid Inj1s*) 0.5 mg IV SLOW PU Q4H PRN PRN Reason: PAIN Last Admin: 07/11/18 09:02 Dose: 0.5 mg Sodium Chloride (Ns 0.9% 1000 Ml*) 1,000 mls @ 75 mls/hr IV PER RATE [facility] Last Admin: 07/10/18 13:00 Dose: 75 mls/hr Insulin Human Lispro (Humalog*) 0 units SUBCUT Q4H [facility]; Protocol Last Admin: 07/11/18 09:06 Dose: 15 units Isosorbide Mononitrate (Imdur Er Tab*) 60 mg PO QAM [facility] Last Admin: 07/11/18 09:06 Dose: 60 mg Levothyroxine Sodium (Synthroid Tab*) 200 mcg PO QAM@0600 [facility] Last Admin: 07/11/18 05:10 Dose: 200 mcg Metoprolol Succinate (Toprol Xl Tab*) 25 mg PO BID [facility] Last Admin: 07/11/18 09:05 Dose: 25 mg Oxycodone/Acetaminophen (Percocet 5/325 Tab*) 1 tab PO Q4H PRN PRN Reason: PAIN Last Admin: 07/11/18 05:32 Dose: 1 tab Vital Signs - 8 hr 07/11/18 07/11/18 07/11/18 03:48 03:49 05:32 Temperature Pulse Rate Respiratory 14 14 18 Rate Blood Pressure (mmHg) O2 Sat by Pulse Oximetry 07/11/18 07/11/18 07/11/18 07:52 08:00 08:18 Temperature 98.0 F Pulse Rate 77 Respiratory 20 18 18 Rate Blood Pressure 126/57 (mmHg) O2 Sat by Pulse 96 96 Oximetry 07/11/18 07/11/18 07/11/18 09:02 09:06 10:03 Temperature Pulse Rate Respiratory 18 18 18 Rate Blood Pressure (mmHg) O2 Sat by Pulse Oximetry 07/11/18 10:39 Temperature Pulse Rate Respiratory 18 Rate Blood Pressure (mmHg) O2 Sat by Pulse Oximetry Oxygen Devices in Use Now: Nasal Cannula Result Diagrams: 07/11/18 05:25 07/11/18 05:25 Additional Lab and Data: Lab Results 07/09/18 07/09/18 07/09/18 Range/Units 15:23 15:23 15:23 WBC 10.6 (3.5-10.8) 10^3/ul RBC 3.93 L (4.00-5.40) 10^6/ul Hgb 13.0 (12.0-16.0) g/dl Hct 39 (35-47) % MCV 98 H (80-97) fL MCH 33 H (27-31) pg MCHC 34 (31-36) g/dl RDW 15 (10.5-15) % Plt Count 225 (150-450) 10^3/ul MPV 7.6 (7.4-10.4) um3 Neut % (Auto) 85.0 H (38-83) % Lymph % (Auto) 8.9 L (25-47) % [place] % (Auto) 5.3 (0-7) % Eos % (Auto) 0.5 (0-6) % Baso % (Auto) 0.3 (0-2) % Absolute Neuts (auto) 9.0 H (1.5-7.7) 10^3/ul Absolute Lymphs (auto) 0.9 L (1.0-4.8) 10^3/ul Absolute Monos (auto) 0.6 (0-0.8) 10^3/ul Absolute Eos (auto) 0.1 (0-0.6) 10^3/ul Absolute Basos (auto) 0 (0-0.2) 10^3/ul Absolute Nucleated RBC 0 10^3/ul Nucleated RBC % 0 INR (Anticoag Therapy) 0.98 (0.77-1.02) APTT 49.3 H (26.0-36.3) seconds Sodium 129 L (135-145) mmol/L Potassium 6.5 H* (3.5-5.0) mmol/L Chloride 95 L (101-111) mmol/L Carbon Dioxide 23 (22-32) mmol/L Anion Gap 11 (2-11) mmol/L BUN 31 H (6-24) mg/dL Creatinine 1.39 H (0.51-0.95) mg/dL Est GFR ( Amer) 44.8 (>60) Est GFR (Non-Af Amer) 37.1 (>60) BUN/Creatinine Ratio 22.3 H (8-20) Glucose 283 H (70-100) mg/dL Calcium 9.2 (8.6-10.3) mg/dL Magnesium 1.4 L (1.9-2.7) mg/dL Total Bilirubin 0.50 (0.2-1.0) mg/dL AST 10 L (13-39) U/L ALT 10 (7-52) U/L Alkaline Phosphatase 56 (34-104) U/L Troponin I Pending Total Protein 7.2 (6.4-8.9) g/dL Albumin 4.0 (3.2-5.2) g/dL Globulin 3.2 (2-4) g/dL Albumin/Globulin Ratio 1.3 (1-3) TSH Pending Microbiology and Other Data: Microbiology 07/10/18 02:15 Urine Culture - Final Urine 07/10/18 05:02 Aerobic Blood Culture - Preliminary Blood Venous No Growth Day 1 Anaerobic Blood Culture - Preliminary No Growth Day 1 07/09/18 20:40 Aerobic Blood Culture - Preliminary Blood Venous No Growth Day 1 Assess/Plan/Problems-Billing Assessment: Ms. Randhawa is a 72-year-old female with a past medical history of coronary artery disease, status post 14 stents; history of diastolic congestive heart failure; sick sinus syndrome, status post pacemaker; hyperlipidemia; hypertension; insulin-dependent type 2 diabetes; history of thyroid carcinoma, status post thyroidectomy with postsurgical hypothyroidism; morbid obesity; COPD ; and recent decompressive lumbar laminectomy L2-L3 on 05/07/[address] Diez , who presented to the emergency department today with report of fall with subsequent left ankle pain and generalized weakness for 2 to 3 days. - Patient Problems (1) Ankle fracture, left Comment: - POD #1 Dispo per Ortho team - PT/OT - Pain management, bowel regimen - HH stable (2) Weakness Comment: - Resolved - unclear etiology of weakness prior to her fall - no obvious sign of infection. She appeared very dehydrated on admission and presented with hyperkalemia which could contributed to her not feeling well. (3) Electrolyte abnormality Comment: Hyperkalemia resolved - suspect secondary to dehydration and potassium supplementation Mag replaced this am. Repeat BMP + Mg in am (4) ARF (acute renal failure) Comment: resolved after gentle IVF. (5) GERD (gastroesophageal reflux disease) Comment: protonix (6) CAD (coronary artery disease) Comment: Stable Ok to restart ASA/Plavix per Ortho Continue Atorvastatin, Metoprolol, norvasc, Ranolazine and Imdur - hold losartan and lasix (7) COPD (chronic obstructive pulmonary disease) Comment: No exacerbation. Continue dulera and albuterol. (8) Diabetes Comment: - type 2 on insulin pump with Januvia and metformin at home - hold for now - Continue lispro SS with FSBG ACHS - one time dose lantus 5 units given today - consider restarting pump tomorrow (9) HLD (hyperlipidemia) Comment: Continue Lipitor. (10) HTN (hypertension) Comment: stable continue norvasc, Imdur, BB (11) DVT prophylaxis Comment: HSQ Status and Disposition: Inpatient with fx left ankle requiring surgical intervention. Disposition to be decided post-op
[2018-07-11] MEDS ORDERED: Aspirin 81 mg CHEW TAB* 81 MG TAB.CHEW PO ONE (12:45)
[2018-07-11] MEDS ORDERED: Clopidogrel TAB* 75 MG PO ONE (12:45)
--- NOTE | 2018-07-11 13:09 | RAD ---
INDICATION: Left knee pain COMPARISON: None TECHNIQUE: AP and crosstable lateral views were obtained. FINDINGS: There is left knee arthroplasty. The prosthesis appears normally seated. Soft tissues are intact IMPRESSION: LEFT KNEE ARTHROPLASTY. NO FINDINGS OF HARDWARE FAILURE.
[2018-07-11] MEDS: NS 0.9% 1000 ML* 1,000 ML IV SCH (16:32)
[2018-07-11] MEDS: Atorvastatin* 40 MG TAB PO SCH (18:00)
--- NOTE | 2018-07-11 18:27 | RAD ---
INDICATION: Hypoxia COMPARISON: Most recent comparison chest x-rays dated July 09, 2018 TECHNIQUE: Single AP portable view of the chest was obtained. FINDINGS: Image quality is compromised due to the relative inferiority of a portable chest x-ray. Again seen is a left upper chest cardiac pacemaker with 2 leads overlying the heart. The heart and mediastinum exhibit normal size and contour. Pulmonary vasculature appears engorged and indistinct. The lungs are otherwise adequately aerated. Visualized bones are normal for the patient's age. IMPRESSION: In the correct clinical setting chest x-ray findings could be compatible with pulmonary edema.
[2018-07-11] MEDS ORDERED: Furosemide IV* 10 MG/ML VIAL (40 MG) IV ONE (20:01)
[2018-07-12 05:42] LABS: ABS Basophils 0.1 10^3/ul (0-0.2); ABS Eosinophils 0 10^3/ul (0-0.6); ABS Lymphocytes 1.5 10^3/ul (1.0-4.8); ABS Monocytes 0.9 10^3/ul (0-0.8); ABS Nucleated RBC 0 10^3/ul; Eosinophil % 0.5 % (0-6); Hematocrit 31 % (35-47); Hemoglobin 10.6 g/dl (12.0-16.0); Lymphocyte % 15.8 % (25-47); Mean Corpuscular HGB Conc 35 g/dl (31-36); Mean Corpuscular Hemoglobin 33 pg (27-31); Mean Corpuscular Volume 96 fL (80-97); Mean Platelet Volume 7.9 um3 (7.4-10.4); Nucleated Red Blood Cells % 0; Platelet Count 176 10^3/ul (150-450); Red Blood Count 3.21 10^6/ul (4.00-5.40); Red Cell Distribution Width 15 % (10.5-15); White Blood Count 9.5 10^3/ul (3.5-10.8)
[2018-07-12 05:59] LABS: EGFR Non-African American 87.5 (>60)
[2018-07-12] MEDS: Levothyroxine TAB* 100 MCG TAB PO SCH (06:08)
[2018-07-12] MEDS: Heparin VIAL(*) 5000 UNITS/ML VIAL (FIVE THOUSAND) SUBCUT SCH ×3 (06:08→20:49)
[2018-07-12] MEDS ORDERED: Magnesium Sulfate 2 GM IV* 2 GM/50 ML BAG IVPB ONE (08:11)
[2018-07-12] MEDS: oxyCODONE/Acetamin 5/325 MG* TAB PO PRN ×4 (09:48→21:38)
[2018-07-12] MEDS: Metoprolol Succinate XL TAB* 25 MG PO SCH ×2 (09:49→20:48)
[2018-07-12] MEDS: Aspirin EC TAB* 81 MG TAB.EC PO SCH (09:49)
[2018-07-12] MEDS: BuPROPion XL* 300 MG TAB.XL PO SCH (09:49)
[2018-07-12] MEDS: Gabapentin CAP(*) 300 MG PO SCH ×3 (09:49→20:47)
[2018-07-12] MEDS: amLODIPine TAB* 5 MG PO SCH (09:49)
[2018-07-12] MEDS: Isosorbide Mononitrate ER TAB* 60 MG PO SCH (09:49)
[2018-07-12] MEDS: Clopidogrel TAB* 75 MG PO SCH (09:49)
[2018-07-12] MEDS: Insulin LISPRO* 1 UNITS UNIT SUBCUT SCH ×4 (09:51→21:04)
--- NOTE | 2018-07-12 17:22 | PN ---
Subjective Date of Service: 07/12/18 Interval History: Patient seen and examined. States her pain is controlled, but is tired. Denies SOB, no chest pain, no fevers or chills. Has not been OOB yet. at bedside. Remains on O2 for episodes of hypoxia to 82% on RA. Objective Active Medications: Acetaminophen (Tylenol Tab*) 650 mg PO Q6H PRN PRN Reason: FEVER/PAIN Last Admin: 07/11/18 15:52 Dose: 650 mg Amlodipine Besylate (Norvasc Tab*) 5 mg PO [facility] Last Admin: 07/12/18 09:49 Dose: 5 mg Aspirin (Aspirin Ec Tab*) 81 mg PO [facility] Last Admin: 07/12/18 09:49 Dose: 81 mg Atorvastatin Calcium (Lipitor*) 40 mg PO QPM [facility]; Protocol Last Admin: 07/11/18 18:00 Dose: 40 mg Bupropion HCl (Bupropion Xl*) 300 mg PO [facility] Last Admin: 07/12/18 09:49 Dose: 300 mg Clopidogrel Bisulfate (Plavix Tab*) 75 mg PO [facility] Last Admin: 07/12/18 09:49 Dose: 75 mg Dextrose (D50w Syringe 50 Ml*) 12.5 gm IV PUSH .FOR FS < 60 - SS PRN PRN Reason: FS < 60 Gabapentin (Neurontin Cap(*)) 600 mg PO TID [facility] Last Admin: 07/12/18 13:08 Dose: 600 mg Heparin Sodium (Porcine) (Heparin Vial(*)) 5,000 units SUBCUT Q8HR [facility] Last Admin: 07/12/18 13:08 Dose: 5,000 units Hydromorphone HCl (Dilaudid Inj1s*) 0.5 mg IV SLOW PU Q4H PRN PRN Reason: PAIN Last Admin: 07/11/18 09:02 Dose: 0.5 mg Insulin Human Lispro (Humalog*) 0 units SUBCUT [facility]; Protocol Last Admin: 07/12/18 13:08 Dose: 12 units Isosorbide Mononitrate (Imdur Er Tab*) 60 mg PO [facility] Last Admin: 07/12/18 09:49 Dose: 60 mg Levothyroxine Sodium (Synthroid Tab*) 200 mcg PO QAM@0600 [facility] Last Admin: 07/12/18 06:08 Dose: 200 mcg Metoprolol Succinate (Toprol Xl Tab*) 25 mg PO BID [facility] Last Admin: 07/12/18 09:49 Dose: 25 mg Oxycodone/Acetaminophen (Percocet 5/325 Tab*) 1 tab PO Q4H PRN PRN Reason: PAIN Last Admin: 07/12/18 09:48 Dose: 1 tab Vital Signs - 8 hr 07/12/18 07/12/18 07/12/18 09:48 09:49 10:57 Temperature 98.1 F Pulse Rate 68 Respiratory 18 18 20 Rate Blood Pressure 131/51 (mmHg) O2 Sat by Pulse 91 Oximetry 07/12/18 07/12/18 07/12/18 13:08 15:18 16:00 Temperature 98.5 F Pulse Rate 73 Respiratory 20 20 Rate Blood Pressure 136/49 (mmHg) O2 Sat by Pulse 100 96 Oximetry 07/12/18 16:09 Temperature Pulse Rate Respiratory 18 Rate Blood Pressure (mmHg) O2 Sat by Pulse Oximetry Oxygen Devices in Use Now: Nasal Cannula Appearance: Alert, but confused Eyes: No Scleral Icterus, PERRLA Ears/Nose/Mouth/Throat: NL Teeth, Lips, Gums, Mucous Membranes Moist Neck: NL Appearance and Movements; NL JVP, Trachea Midline Respiratory: Symmetrical Chest Expansion and Respiratory Effort, - - diminished bases Cardiovascular: NL Sounds; No Murmurs; No JVD, RRR, No Edema Abdominal: NL Sounds; No Tenderness; No Distention Extremities: No Clubbing, Cyanosis, - - splint LLE, good pulses, brisk cap refill Skin: No Rash or Ulcers Neurological: NL Sensation, - - weakness, forgetful, difficulty following commands Nutrition: Taking PO's Result Diagrams: 07/12/18 05:33 07/12/18 05:33 Additional Lab and Data: Lab Results 07/09/18 07/09/18 07/09/18 Range/Units 15:23 15:23 15:23 WBC 10.6 (3.5-10.8) 10^3/ul RBC 3.93 L (4.00-5.40) 10^6/ul Hgb 13.0 (12.0-16.0) g/dl Hct 39 (35-47) % MCV 98 H (80-97) fL MCH 33 H (27-31) pg MCHC 34 (31-36) g/dl RDW 15 (10.5-15) % Plt Count 225 (150-450) 10^3/ul MPV 7.6 (7.4-10.4) um3 Neut % (Auto) 85.0 H (38-83) % Lymph % (Auto) 8.9 L (25-47) % [place] % (Auto) 5.3 (0-7) % Eos % (Auto) 0.5 (0-6) % Baso % (Auto) 0.3 (0-2) % Absolute Neuts (auto) 9.0 H (1.5-7.7) 10^3/ul Absolute Lymphs (auto) 0.9 L (1.0-4.8) 10^3/ul Absolute Monos (auto) 0.6 (0-0.8) 10^3/ul Absolute Eos (auto) 0.1 (0-0.6) 10^3/ul Absolute Basos (auto) 0 (0-0.2) 10^3/ul Absolute Nucleated RBC 0 10^3/ul Nucleated RBC % 0 INR (Anticoag Therapy) 0.98 (0.77-1.02) APTT 49.3 H (26.0-36.3) seconds Sodium 129 L (135-145) mmol/L Potassium 6.5 H* (3.5-5.0) mmol/L Chloride 95 L (101-111) mmol/L Carbon Dioxide 23 (22-32) mmol/L Anion Gap 11 (2-11) mmol/L BUN 31 H (6-24) mg/dL Creatinine 1.39 H (0.51-0.95) mg/dL Est GFR ( Amer) 44.8 (>60) Est GFR (Non-Af Amer) 37.1 (>60) BUN/Creatinine Ratio 22.3 H (8-20) Glucose 283 H (70-100) mg/dL Calcium 9.2 (8.6-10.3) mg/dL Magnesium 1.4 L (1.9-2.7) mg/dL Total Bilirubin 0.50 (0.2-1.0) mg/dL AST 10 L (13-39) U/L ALT 10 (7-52) U/L Alkaline Phosphatase 56 (34-104) U/L Troponin I Pending Total Protein 7.2 (6.4-8.9) g/dL Albumin 4.0 (3.2-5.2) g/dL Globulin 3.2 (2-4) g/dL Albumin/Globulin Ratio 1.3 (1-3) TSH Pending Microbiology and Other Data: Microbiology 07/10/18 02:15 Urine Culture - Final Urine 07/10/18 05:02 Aerobic Blood Culture - Preliminary Blood Venous No Growth Day 1 Anaerobic Blood Culture - Preliminary No Growth Day 1 07/09/18 20:40 Aerobic Blood Culture - Preliminary Blood Venous No Growth Day 1 Assess/Plan/Problems-Billing Assessment: This is a 72-year-old female with a past medical history of coronary artery disease, status post 14 stents; history of diastolic congestive heart failure; sick sinus syndrome, status post pacemaker; hyperlipidemia; hypertension; insulin-dependent type 2 diabetes; history of thyroid carcinoma, status post thyroidectomy with postsurgical hypothyroidism; morbid obesity; COPD; and recent decompressive lumbar laminectomy L2-L3 on 05/07/[address] Diez, who presented to the emergency department with report of fall with ankle pain and weakness x 2-3 days, found to have left ankle fracture, currently s/p ORIF. - Patient Problems (1) Ankle fracture, left Code(s): S82.892A - OTH FRACTURE OF LEFT LOWER LEG, INIT FOR CLOS FX SNOMED Code(s): 67313052 Comment: - POD2, POC as per ortho - PT/OT recommends [place] albrecht on surgical side and is forgetful - Pain control, bowel regimen (2) Acute diastolic CHF (congestive heart failure) Code(s): I50.31 - ACUTE DIASTOLIC (CONGESTIVE) HEART FAILURE SNOMED Code(s): 523973185 Comment: - Had diastolic HF in 05/2017 with mild and mild MR, EF of 55-60% at that time - Currently hypoxic with vascular congestion on CXR, had lasix last night - Will order BNP, and continue lasix IV - Daily weights and strict I&Os (3) Weakness Code(s): R53.1 - WEAKNESS SNOMED Code(s): 93014897 Comment: - Etiology unclear, likely chronic disease and deconditioning since lumbar spine surgery - PT recommends STR (4) CAD (coronary artery disease) Code(s): I25.10 - ATHSCL HEART DISEASE OF [place] CORONARY ARTERY W/O ANG PCTRS SNOMED Code(s): 16360206 Comment: - No chest pain but is hypoxic - Restart ASA/Plavix per Ortho - Continue Atorvastatin, Metoprolol, norvasc, Ranolazine and Imdur, hold losartan - Restart lasix, as I am concern for acute on chronic HF, follow BNP and titrate O2 (5) COPD (chronic obstructive pulmonary disease) Code(s): J44.9 - CHRONIC OBSTRUCTIVE PULMONARY DISEASE, UNSPECIFIED SNOMED Code(s): 52818488 Comment: - No exacerbation. Continue dulera and albuterol PRN (6) Diabetes Code(s): E11.9 - TYPE 2 DIABETES MELLITUS WITHOUT COMPLICATIONS SNOMED Code(s) : 08869847 Comment: - type 2 on insulin pump with Januvia and metformin at home - hold for now - Continue lispro SS with FSBG ACHS - one time dose lantus 5 units given 07/11 - Restart pump in AM (7) HLD (hyperlipidemia) Code(s): E78.5 - HYPERLIPIDEMIA, UNSPECIFIED SNOMED Code(s): 22045388 Comment: - Continue Lipitor (8) HTN (hypertension) Current Visit: Yes Status: Chronic Code(s): I10 - ESSENTIAL (PRIMARY) HYPERTENSION SNOMED Code(s): 69958210 Comment: stable continue norvasc, Imdur, BB (9) Hyponatremia Code(s): E87.1 - HYPO-OSMOLALITY AND HYPONATREMIA SNOMED Code(s): 00516326 Comment: - Acute on chronic, improving (10) DVT prophylaxis Code(s): TQA0775 - SNOMED Code(s): 391832125 Comment: - HSQ (11) Full code status Code(s): Z78.9 - OTHER SPECIFIED HEALTH STATUS SNOMED Code(s): 044576296 Status and Disposition: Remain inpatient, will need STR as DC.
[2018-07-12] MEDS: Atorvastatin* 40 MG TAB PO SCH (17:38)
--- NOTE | 2018-07-12 19:28 | PN ---
Progress Note - Progress Note Date of Service: 07/12/18 SOAP: Subjective: Pt seen and examined at bedside. Pain well controlled. No new c/o. Denies F/C, N /T. Vital Signs: Temp Pulse Resp BP Pulse Ox 98.5 F 73 20 136/49 96 07/12/18 15:18 07/12/18 15:18 07/12/18 17:38 07/12/18 15:18 07/12/18 16:00 Laboratory Last Values WBC 9.5 10^3/ul (3.5-10.8) 07/12/18 05:33 RBC 3.21 10^6/ul (4.00-5.40) L 07/12/18 05:33 Hgb 10.6 g/dl (12.0-16.0) L 07/12/18 05:33 Hct 31 % (35-47) L 07/12/18 05:33 MCV 96 fL (80-97) 07/12/18 05:33 MCH 33 pg (27-31) H 07/12/18 05:33 MCHC 35 g/dl (31-36) 07/12/18 05:33 RDW 15 % (10.5-15) 07/12/18 05:33 Plt Count 176 10^3/ul (150-450) 07/12/18 05:33 MPV 7.9 um3 (7.4-10.4) 07/12/18 05:33 Neut % (Auto) 73.6 % (38-83) 07/12/18 05:33 Lymph % (Auto) 15.8 % (25-47) L 07/12/18 05:33 [place] % (Auto) 9.4 % (0-7) H 07/12/18 05:33 Eos % (Auto) 0.5 % (0-6) 07/12/18 05:33 Baso % (Auto) 0.7 % (0-2) 07/12/18 05:33 Absolute Neuts (auto) 7.0 10^3/ul (1.5-7.7) 07/12/18 05:33 Absolute Lymphs (auto) 1.5 10^3/ul (1.0-4.8) 07/12/18 05:33 Absolute Monos (auto) 0.9 10^3/ul (0-0.8) H 07/12/18 05:33 Absolute Eos (auto) 0 10^3/ul (0-0.6) 07/12/18 05:33 Absolute Basos (auto) 0.1 10^3/ul (0-0.2) 07/12/18 05:33 Absolute Nucleated RBC 0 10^3/ul 07/12/18 05:33 Nucleated RBC % 0 07/12/18 05:33 INR (Anticoag Therapy) 0.98 (0.77-1.02) 07/09/18 15:23 APTT 49.3 seconds (26.0-36.3) H 07/09/18 15:23 Sodium 133 mmol/L (135-145) L 07/12/18 05:33 Potassium 3.7 mmol/L (3.5-5.0) 07/12/18 05:33 Chloride 98 mmol/L (101-111) L 07/12/18 05:33 Carbon Dioxide 28 mmol/L (22-32) 07/12/18 05:33 Anion Gap 7 mmol/L (2-11) 07/12/18 05:33 BUN 12 mg/dL (6-24) 07/12/18 05:33 Creatinine 0.66 mg/dL (0.51-0.95) 07/12/18 05:33 Est GFR ( Amer) 105.9 (>60) 07/12/18 05:33 Est GFR (Non-Af Amer) 87.5 (>60) 07/12/18 05:33 BUN/Creatinine Ratio 18.2 (8-20) 07/12/18 05:33 Glucose 287 mg/dL (70-100) H 07/12/18 05:33 POC Glucose (mg/dL) 276 mg/dL (70-100) H 07/12/18 16:39 Calcium 8.8 mg/dL (8.6-10.3) 07/12/18 05:33 Magnesium 1.4 mg/dL (1.9-2.7) L 07/12/18 05:33 Total Bilirubin 0.50 mg/dL (0.2-1.0) 07/09/18 15:23 AST 10 U/L (13-39) L 07/09/18 15:23 ALT 10 U/L (7-52) 07/09/18 15:23 Alkaline Phosphatase 56 U/L (34-104) 07/09/18 15:23 Troponin I 0.01 ng/mL (<0.04) 07/09/18 15:23 B-Natriuretic Peptide 342 pg/mL (-100) H 07/12/18 05:30 Total Protein 7.2 g/dL (6.4-8.9) 07/09/18 15:23 Albumin 4.0 g/dL (3.2-5.2) 07/09/18 15:23 Globulin 3.2 g/dL (2-4) 07/09/18 15:23 Albumin/Globulin Ratio 1.3 (1-3) 07/09/18 15:23 TSH 1.56 mcIU/mL (0.34-5.60) 07/09/18 15:23 Urine Color Yellow 07/10/18 02:15 Urine Appearance Clear 07/10/18 02:15 Urine pH 5.0 (5-9) 07/10/18 02:15 Ur Specific [place] 1.013 (1.010-1.030) 07/10/18 02:15 Urine Protein Negative (Negative) 07/10/18 02:15 Urine Ketones Negative (Negative) 07/10/18 02:15 Urine Blood Negative (Negative) 07/10/18 02:15 Urine Nitrate Negative (Negative) 07/10/18 02:15 Urine Bilirubin Negative (Negative) 07/10/18 02:15 Urine Urobilinogen Negative (Negative) 07/10/18 02:15 Ur Leukocyte Esterase 1+ (Negative) A 07/10/18 02:15 Urine WBC (Auto) 1+(6-10/hpf) (Absent) A 07/10/18 02:15 Urine RBC (Auto) Absent (Absent) 07/10/18 02:15 Ur Squamous Epith Cells Present (Absent) A 07/10/18 02:15 Urine Bacteria 1+ (Absent) A 07/10/18 02:15 Hyaline Casts Present (Absent) A 07/10/18 02:15 Urine Glucose 1+(50 mg/dl) (Negative) A 07/10/18 02:15 Objective: Splint intact, NVI Assessment: s/p ORIF left ankle bimall fx Plan: NWB LLE Pain control DVT prophylaxis - Heparin Appreciate hospitalist input
[2018-07-12] MEDS: Furosemide IV* 10 MG/ML VIAL (40 MG) IV SCH (20:47)
[2018-07-12] MEDS: Magnesium Chloride EC TAB* 64 MG PO SCH (20:48)
[2018-07-13] MEDS: Heparin VIAL(*) 5000 UNITS/ML VIAL (FIVE THOUSAND) SUBCUT SCH ×3 (05:56→22:04)
[2018-07-13] MEDS: Levothyroxine TAB* 100 MCG TAB PO SCH (05:56)
[2018-07-13] MEDS: oxyCODONE/Acetamin 5/325 MG* TAB PO PRN (05:57)
[2018-07-13] MEDS: Acetaminophen TAB* 325 MG PO SCH ×3 (09:37→20:22)
[2018-07-13] MEDS: Gabapentin CAP(*) 300 MG PO SCH ×3 (09:38→20:23)
[2018-07-13] MEDS: amLODIPine TAB* 5 MG PO SCH (09:38)
[2018-07-13] MEDS: Metoprolol Succinate XL TAB* 25 MG PO SCH ×2 (09:38→20:23)
[2018-07-13] MEDS: Isosorbide Mononitrate ER TAB* 60 MG PO SCH (09:39)
[2018-07-13] MEDS: Clopidogrel TAB* 75 MG PO SCH (09:39)
[2018-07-13] MEDS: Magnesium Chloride EC TAB* 64 MG PO SCH (09:39)
[2018-07-13] MEDS: BuPROPion XL* 300 MG TAB.XL PO SCH (09:39)
[2018-07-13] MEDS: Aspirin EC TAB* 81 MG TAB.EC PO SCH (09:39)
[2018-07-13] MEDS: Furosemide IV* 10 MG/ML VIAL (40 MG) IV SCH (09:40)
[2018-07-13] MEDS: Insulin LISPRO* 1 UNITS UNIT SUBCUT SCH ×5 (09:40→20:24)
--- NOTE | 2018-07-13 10:14 | PN ---
Progress Note - Progress Note Date of Service: 07/13/18 SOAP: Subjective: Pt seen and examined at bedside. Pain well controlled. No new c/o. Denies F/C, N /T. It has been noted that she has been having trouble with WB status and has placed weight on it overnight 2 times. The nursing staff it trying to stop this from occurring. Objective: A&O, NAD Splint intact, NVI, able to wiggle toes, cap refill less than 2 seconds. Vital Signs Temp 97.3 F 07/13/18 07:38 Pulse 74 07/13/18 07:38 Resp 20 07/13/18 09:38 BP 138/60 07/13/18 07:38 Pulse Ox 100 07/13/18 07:38 Intake & Output 07/12/18 07/13/18 07/13/18 18:59 06:59 18:59 Intake Total 685 800 120 Output Total 100 Balance 585 800 120 Weight 230 lb Intake: IV Fluids 85 Mag 50 NS (0.9%) 35 Oral 600 800 120 Output: Urine 100 Other: Estimated Void Medium # Voids 2 Assessment: s/p ORIF left ankle bimall fx Plan: NWB LLE Pain control DVT prophylaxis - Heparin Hospitalists co -managing Await placement for rehab facility as the pt is unsafe and unable to follow WB status.
[2018-07-13] MEDS ORDERED: Magnesium Sulfate IV* 3 GM in NS 0.9% 100 ML* 100 ML IVPB ONE (12:03)
[2018-07-13] MEDS ORDERED: Polyethylene Glycol 3350* 17 GM PACKET PO PRN (12:03)
--- NOTE | 2018-07-13 15:22 | PN ---
Subjective Date of Service: 07/13/18 Interval History: Patient seen and examined. Had periods of confusion overnight. Lengthy discussion with patient and her regarding delerium. Patient states pain was intolerable overnight and had received IV pain meds. She is currently alert with no acute complaints. States general fatigue and throbbing pain in LLE but no SOB or cough. Remains on O2 now at 2LPM Objective Active Medications: Acetaminophen (Tylenol Tab*) 650 mg PO Q6H [facility] Last Admin: 07/13/18 13:31 Dose: 650 mg Amlodipine Besylate ([facility]asc [facility]*) [facility] [place] Admin: 07/13/18 09:38 Dose: 5 mg Aspirin (Aspirin Ec Tab*) [facility] [place] Admin: 07/13/18 09:39 Dose: 81 mg Atorvastatin Calcium (Lipitor*) 40 mg PO QPM [facility]; Protocol Last Admin: 07/12/18 17:38 Dose: 40 mg Bupropion HCl (Bupropion Xl*) 300 mg PO [facility] Last Admin: 07/13/18 09:39 Dose: 300 mg Clopidogrel Bisulfate (Plavix Tab*) [facility] [place] Admin: 07/13/18 09:39 Dose: 75 mg Dextrose (D50w Syringe 50 Ml*) 12.5 gm IV PUSH .FOR FS < 60 - SS PRN PRN Reason: FS < 60 Furosemide (Lasix Iv*) 40 mg IV DAILY [facility] Last Admin: 07/13/18 09:40 Dose: 40 mg Gabapentin (Neurontin Cap(*)) 600 mg PO TID [facility] Last Admin: 07/13/18 13:30 Dose: 600 mg Heparin Sodium (Porcine) (Heparin Vial(*)) 5,000 units SUBCUT Q8HR [facility] Last Admin: 07/13/18 13:32 Dose: 5,000 units Insulin Human Lispro (Humalog*) [address] [facility]; Protocol Last Admin: 07/13/18 13:32 Dose: 12 units Isosorbide Mononitrate (Imdur Er Tab*) 60 [facility] [place] Admin: 07/13/18 09:39 Dose: 60 mg Levothyroxine Sodium (Synthroid Tab*) 200 mcg PO QA@0600 [facility] Last Admin: 07/13/18 05:56 Dose: 200 mcg Magnesium Chloride (Slow Mag Ec Tab*) 64 mg PO DAILY [facility] Last Admin: 07/13/18 09:39 Dose: 64 mg Metoprolol Succinate (Toprol Xl Tab*) 25 mg PO BID [facility] Last Admin: 07/13/18 09:38 Dose: 25 mg Polyethylene Glycol/Electrolytes (Miralax*) 17 gm PO DAILY PRN PRN Reason: CONSTIPATION Last Admin: 07/13/18 12:09 Dose: 17 gm Tramadol HCl (Ultram*) 50 mg PO Q6H PRN PRN Reason: PAIN Vital Signs - 8 hr 07/13/18 07/13/18 07/13/18 07:38 08:00 09:38 Temperature 97.3 F Pulse Rate 74 Respiratory 20 18 20 Rate Blood Pressure 138/60 (mmHg) O2 Sat by Pulse 100 100 Oximetry 07/13/18 07/13/18 07/13/18 11:20 11:47 13:30 Temperature 98.2 F Pulse Rate 69 Respiratory 18 18 18 Rate Blood Pressure 143/61 (mmHg) O2 Sat by Pulse 98 Oximetry Oxygen Devices in Use Now: Nasal Cannula Appearance: Alert, NAD Eyes: No Scleral Icterus, PERRLA Ears/Nose/Mouth/Throat: NL Teeth, Lips, Gums, Mucous Membranes Moist Neck: NL Appearance and Movements; NL JVP, Trachea Midline Respiratory: Symmetrical Chest Expansion and Respiratory Effort, - - diminished bases Cardiovascular: NL Sounds; No Murmurs; No JVD, RRR Abdominal: NL Sounds; No Tenderness; No Distention Extremities: - - dressing/splint CDI Neurological: Alert and Oriented x 3 Nutrition: Taking PO's Result Diagrams: 07/12/18 05:33 07/12/18 05:33 Additional Lab and Data: Lab Results 07/09/18 07/09/18 07/09/18 Range/Units 15:23 15:23 15:23 WBC 10.6 (3.5-10.8) 10^3/ul RBC 3.93 L (4.00-5.40) 10^6/ul Hgb 13.0 (12.0-16.0) g/dl Hct 39 (35-47) % MCV 98 H (80-97) fL MCH 33 H (27-31) pg MCHC 34 (31-36) g/dl RDW 15 (10.5-15) % Plt Count 225 (150-450) 10^3/ul MPV 7.6 (7.4-10.4) um3 Neut % (Auto) 85.0 H (38-83) % Lymph % (Auto) 8.9 L (25-47) % [place] % (Auto) 5.3 (0-7) % Eos % (Auto) 0.5 (0-6) % Baso % (Auto) 0.3 (0-2) % Absolute Neuts (auto) 9.0 H (1.5-7.7) 10^3/ul Absolute Lymphs (auto) 0.9 L (1.0-4.8) 10^3/ul Absolute Monos (auto) 0.6 (0-0.8) 10^3/ul Absolute Eos (auto) 0.1 (0-0.6) 10^3/ul Absolute Basos (auto) 0 (0-0.2) 10^3/ul Absolute Nucleated RBC 0 10^3/ul Nucleated RBC % 0 INR (Anticoag Therapy) 0.98 (0.77-1.02) APTT 49.3 H (26.0-36.3) seconds Sodium 129 L (135-145) mmol/L Potassium 6.5 H* (3.5-5.0) mmol/L Chloride 95 L (101-111) mmol/L Carbon Dioxide 23 (22-32) mmol/L Anion Gap 11 (2-11) mmol/L BUN 31 H (6-24) mg/dL Creatinine 1.39 H (0.51-0.95) mg/dL Est GFR ( Amer) 44.8 (>60) Est GFR (Non-Af Amer) 37.1 (>60) BUN/Creatinine Ratio 22.3 H (8-20) Glucose 283 H (70-100) mg/dL Calcium 9.2 (8.6-10.3) mg/dL Magnesium 1.4 L (1.9-2.7) mg/dL Total Bilirubin 0.50 (0.2-1.0) mg/dL AST 10 L (13-39) U/L ALT 10 (7-52) U/L Alkaline Phosphatase 56 (34-104) U/L Troponin I Pending Total Protein 7.2 (6.4-8.9) g/dL Albumin 4.0 (3.2-5.2) g/dL Globulin 3.2 (2-4) g/dL Albumin/Globulin Ratio 1.3 (1-3) TSH Pending Microbiology and Other Data: Microbiology 07/10/18 02:15 Urine Culture - Final Urine 07/10/18 05:02 Aerobic Blood Culture - Preliminary Blood Venous No Growth Day 1 Anaerobic Blood Culture - Preliminary No Growth Day 1 07/09/18 20:40 Aerobic Blood Culture - Preliminary Blood Venous No Growth Day 1 Assess/Plan/Problems-Billing Assessment: This is a 72-year-old female with a past medical history of coronary artery disease, status post 14 stents; history of diastolic congestive heart failure; sick sinus syndrome, status post pacemaker; hyperlipidemia; hypertension; insulin-dependent type 2 diabetes; history of thyroid carcinoma, status post thyroidectomy with postsurgical hypothyroidism; morbid obesity; COPD; and recent decompressive lumbar laminectomy L2-L3 on 05/07/[address] Diez, who presented to the emergency department with report of fall with ankle pain and weakness x 2-3 days, found to have left ankle fracture, currently s/p ORIF. - Patient Problems (1) Ankle fracture, left Code(s): S82.892A - OTH FRACTURE OF LEFT LOWER LEG, INIT FOR CLOS FX SNOMED Code(s): 68113334 Comment: - POD3, POC as per ortho - PT/OT recommends trena NWB on surgical side and is forgetful and has difficulty following commands when directed to not stand on affected side - Adjust pain control given overnight delerium. Dilaudid and percocet discontinued. - Place on standing tylenol and tramadol PRN (2) Acute diastolic CHF (congestive heart failure) Code(s): I50.31 - ACUTE DIASTOLIC (CONGESTIVE) HEART FAILURE SNOMED Code(s): 752353087 Comment: - Had diastolic HF in 05/2017 with mild and mild MR, EF of 55-60% at that time - Currently hypoxic with vascular congestion on CXR, had lasix last night - BNP slightly elevated at 343 but weaning oxygen and diuresing well - Daily weights and strict I&Os (3) Weakness Code(s): R53.1 - WEAKNESS SNOMED Code(s): 90288214 Comment: - Etiology unclear, likely chronic disease and deconditioning since lumbar spine surgery - PT recommends STR (4) CAD (coronary artery disease) Code(s): I25.10 - ATHSCL HEART DISEASE OF [place] CORONARY ARTERY W/O ANG PCTRS SNOMED Code(s): 06207641 Comment: - No chest pain but is hypoxic likely 2/2 mild HF - Restart ASA/Plavix per Ortho - Continue Atorvastatin, Metoprolol, norvasc, Ranolazine and Imdur, hold losartan - Lasix restarted, continue to wean O2 (5) COPD (chronic obstructive pulmonary disease) Code(s): J44.9 - CHRONIC OBSTRUCTIVE PULMONARY DISEASE, UNSPECIFIED SNOMED Code(s): 08409154 Comment: - No exacerbation. Continue dulera and albuterol PRN (6) Diabetes Code(s): E11.9 - TYPE 2 DIABETES MELLITUS WITHOUT COMPLICATIONS SNOMED Code(s) : 62997477 Comment: - type 2 on insulin pump with Januvia and metformin at home - hold for now - Continue lispro SS with FSBG ACHS - one time dose lantus 5 units given 07/11 - Restart pump in AM (7) HLD (hyperlipidemia) Code(s): E78.5 - HYPERLIPIDEMIA, UNSPECIFIED SNOMED Code(s): 81813174 Comment: - Continue Lipitor (8) HTN (hypertension) Code(s): I10 - ESSENTIAL (PRIMARY) HYPERTENSION SNOMED Code(s): 92922336 Comment: - Stable on norvasc, Imdur, BB (9) Hyponatremia Code(s): E87.1 - HYPO-OSMOLALITY AND HYPONATREMIA SNOMED Code(s): 14245300 Comment: - Acute on chronic, improving (10) DVT prophylaxis Code(s): TUC6392 - SNOMED Code(s): 043399279 Comment: - HSQ (11) Full code status Code(s): Z78.9 - OTHER SPECIFIED HEALTH STATUS SNOMED Code(s): 013775786 Status and Disposition: Remain inpatient, will need STR at [place].
[2018-07-13] MEDS: Atorvastatin* 40 MG TAB PO SCH (17:54)
[2018-07-14] MEDS: Acetaminophen TAB* 325 MG PO SCH ×4 (02:05→20:04)
[2018-07-14] MEDS: Levothyroxine TAB* 100 MCG TAB PO SCH (05:32)
[2018-07-14] MEDS: Heparin VIAL(*) 5000 UNITS/ML VIAL (FIVE THOUSAND) SUBCUT SCH ×3 (05:33→22:06)
[2018-07-14 09:05] LABS: EGFR Non-African American 94.1 (>60)
--- NOTE | 2018-07-14 09:12 | PN ---
Subjective Date of Service: 07/14/18 Interval History: Patient seen and examined. No acute overnight events. No further confusion since being off IV narcotics. Patient denies SOB, no chest pain, remains on O2 but down to 1.5 liters. Objective Active Medications: Acetaminophen (Tylenol Tab*) 650 mg PO Q6H [facility] Last Admin: 07/14/18 02:05 Dose: 650 mg Amlodipine Besylate ([facility]asc [facility]*) [facility] [place] Last Admin: 07/13/18 09:38 Dose: 5 mg Aspirin (Aspirin Ec Tab*) [facility] [place] Last Admin: 07/13/18 09:39 Dose: 81 mg Atorvastatin Calcium (Lipitor*) 40 mg PO QPM [facility]; Protocol Last Admin: 07/13/18 17:54 Dose: 40 mg Bupropion HCl (Bupropion Xl*) [facility] [place] Last Admin: 07/13/18 09:39 Dose: 300 mg Clopidogrel Bisulfate (Plavix Tab*) 75 mg PO [facility] [place] Last Admin: 07/13/18 09:39 Dose: 75 mg Dextrose (D50w Syringe 50 Ml*) 12.5 gm IV PUSH .FOR FS < 60 - SS PRN PRN Reason: FS < 60 Furosemide (Lasix Iv*) 40 mg IV DAILY [facility] Last Admin: 07/13/18 09:40 Dose: 40 mg Gabapentin (Neurontin Cap(*)) 600 mg PO TID [facility] Last Admin: 07/13/18 20:23 Dose: 600 mg Heparin Sodium (Porcine) (Heparin Vial(*)) 5,000 units SUBCUT Q8HR [facility] Last Admin: 07/14/18 05:33 Dose: 5,000 units Insulin Human Lispro (Humalog*) 0 units SUBCUT ACHS [facility]; Protocol Last Admin: 07/13/18 20:24 Dose: Not Given Isosorbide Mononitrate (Imdur Er Tab*) [facility] [place] Last Admin: 07/13/18 09:39 Dose: 60 mg Levothyroxine Sodium (Synthroid Tab*) 200 mcg PO QAM@0600 [facility] Last Admin: 07/14/18 05:32 Dose: 200 mcg Magnesium Chloride (Slow Mag Ec Tab*) 64 mg PO DAILY [facility] Last Admin: 07/13/18 09:39 Dose: 64 mg Metoprolol Succinate (Toprol Xl Tab*) 25 mg PO BID [facility] Last Admin: 07/13/18 20:23 Dose: 25 mg Polyethylene Glycol/Electrolytes (Miralax*) 17 gm PO DAILY PRN PRN Reason: CONSTIPATION Last Admin: 07/13/18 12:09 Dose: 17 gm Tramadol HCl (Ultram*) 50 mg PO Q6H PRN PRN Reason: PAIN Vital Signs - 8 hr 07/14/18 07/14/18 03:11 03:15 Temperature 98.4 F Pulse Rate 59 Respiratory 16 Rate Blood Pressure 118/58 (mmHg) O2 Sat by Pulse 97 Oximetry Oxygen Devices in Use Now: Nasal Cannula Appearance: alert, nad Eyes: No Scleral Icterus, PERRLA Ears/Nose/Mouth/Throat: Clear Oropharnyx, Mucous Membranes Moist Neck: NL Appearance and Movements; NL JVP, Trachea Midline Respiratory: Symmetrical Chest Expansion and Respiratory Effort, Clear to Auscultation Cardiovascular: NL Sounds; No Murmurs; No JVD, RRR Abdominal: NL Sounds; No Tenderness; No Distention Extremities: No Edema, - - splint and dressing CDI, brisk cap refill Neurological: Alert and Oriented x 3, NL Sensation, - - general weakness Nutrition: Taking PO's Result Diagrams: 07/12/18 05:33 07/12/18 05:33 Additional Lab and Data: Lab Results 07/09/18 07/09/18 07/09/18 Range/Units 15:23 15:23 15:23 WBC 10.6 (3.5-10.8) 10^3/ul RBC 3.93 L (4.00-5.40) 10^6/ul Hgb 13.0 (12.0-16.0) g/dl Hct 39 (35-47) % MCV 98 H (80-97) fL MCH 33 H (27-31) pg MCHC 34 (31-36) g/dl RDW 15 (10.5-15) % Plt Count 225 (150-450) 10^3/ul MPV 7.6 (7.4-10.4) um3 Neut % (Auto) 85.0 H (38-83) % Lymph % (Auto) 8.9 L (25-47) % [place] % (Auto) 5.3 (0-7) % Eos % (Auto) 0.5 (0-6) % Baso % (Auto) 0.3 (0-2) % Absolute Neuts (auto) 9.0 H (1.5-7.7) 10^3/ul Absolute Lymphs (auto) 0.9 L (1.0-4.8) 10^3/ul Absolute Monos (auto) 0.6 (0-0.8) 10^3/ul Absolute Eos (auto) 0.1 (0-0.6) 10^3/ul Absolute Basos (auto) 0 (0-0.2) 10^3/ul Absolute Nucleated RBC 0 10^3/ul Nucleated RBC % 0 INR (Anticoag Therapy) 0.98 (0.77-1.02) APTT 49.3 H (26.0-36.3) seconds Sodium 129 L (135-145) mmol/L Potassium 6.5 H* (3.5-5.0) mmol/L Chloride 95 L (101-111) mmol/L Carbon Dioxide 23 (22-32) mmol/L Anion Gap 11 (2-11) mmol/L BUN 31 H (6-24) mg/dL Creatinine 1.39 H (0.51-0.95) mg/dL Est GFR ( Amer) 44.8 (>60) Est GFR (Non-Af Amer) 37.1 (>60) BUN/Creatinine Ratio 22.3 H (8-20) Glucose 283 H (70-100) mg/dL Calcium 9.2 (8.6-10.3) mg/dL Magnesium 1.4 L (1.9-2.7) mg/dL Total Bilirubin 0.50 (0.2-1.0) mg/dL AST 10 L (13-39) U/L ALT 10 (7-52) U/L Alkaline Phosphatase 56 (34-104) U/L Troponin I Pending Total Protein 7.2 (6.4-8.9) g/dL Albumin 4.0 (3.2-5.2) g/dL Globulin 3.2 (2-4) g/dL Albumin/Globulin Ratio 1.3 (1-3) TSH Pending Microbiology and Other Data: Microbiology 07/10/18 02:15 Urine Culture - Final Urine 07/10/18 05:02 Aerobic Blood Culture - Preliminary Blood Venous No Growth Day 1 Anaerobic Blood Culture - Preliminary No Growth Day 1 07/09/18 20:40 Aerobic Blood Culture - Preliminary Blood Venous No Growth Day 1 Assess/Plan/Problems-Billing Assessment: This is a 72-year-old female with a past medical history of coronary artery disease, status post 14 stents; history of diastolic congestive heart failure; sick sinus syndrome, status post pacemaker; hyperlipidemia; hypertension; insulin-dependent type 2 diabetes; history of thyroid carcinoma, status post thyroidectomy with postsurgical hypothyroidism; morbid obesity; COPD; and recent decompressive lumbar laminectomy L2-L3 on 05/07/[address] Diez, who presented to the emergency department with report of fall with ankle pain and weakness x 2-3 days, found to have left ankle fracture, currently s/p ORIF. - Patient Problems (1) Ankle fracture, left Code(s): S82.892A - OTH FRACTURE OF LEFT LOWER LEG, INIT FOR CLOS FX SNOMED Code(s): 52696560 Comment: - POD4, POC as per ortho, progressing - Continue NWB on affected side, patient is coherent and delerium has resolved , will defer to PT for further recs on trena vs physical assist - Continue standing tylenol and tramadol PRN, pain well controlled (2) Acute diastolic CHF (congestive heart failure) Code(s): I50.31 - ACUTE DIASTOLIC (CONGESTIVE) HEART FAILURE SNOMED Code(s): 844800883 Comment: - Had diastolic HF in 05/2017 with mild and mild MR, EF of 55-60% at that time - Hypoxia improved with lasix, wean O2 - Patient was "missing" the bedpan, there is no accurate record of total void - Continue daily weights and strict I&Os, weight down to 223 today from 230 yesterday (3) Weakness Code(s): R53.1 - WEAKNESS SNOMED Code(s): 05275199 Comment: - Etiology unclear, likely chronic disease and deconditioning since lumbar spine surgery - PT recommends STR (4) CAD (coronary artery disease) Code(s): I25.10 - ATHSCL HEART DISEASE OF [place] CORONARY ARTERY W/O ANG PCTRS SNOMED Code(s): 67279314 Comment: - No chest pain but is hypoxic likely 2/2 mild HF - Restart ASA/Plavix per Ortho - Continue Atorvastatin, Metoprolol, norvasc, Ranolazine and Imdur, hold losartan - Lasix restarted, continue to wean O2 (5) COPD (chronic obstructive pulmonary disease) Code(s): J44.9 - CHRONIC OBSTRUCTIVE PULMONARY DISEASE, UNSPECIFIED SNOMED Code(s): 02211361 Comment: - No exacerbation. Continue dulera and albuterol PRN (6) Diabetes Code(s): E11.9 - TYPE 2 DIABETES MELLITUS WITHOUT COMPLICATIONS SNOMED Code(s) : 63186999 Comment: - Pump restarted with basal rate and bolus. Nursing staff instructed to let patient bolus herself based on BG and record. SS on top of pump if needed but BG has been stable (7) HLD (hyperlipidemia) Code(s): E78.5 - HYPERLIPIDEMIA, UNSPECIFIED SNOMED Code(s): 24879182 Comment: - Continue Lipitor (8) HTN (hypertension) Code(s): I10 - ESSENTIAL (PRIMARY) HYPERTENSION SNOMED Code(s): 82780985 Comment: - Stable on norvasc, Imdur, BB (9) Hyponatremia Code(s): E87.1 - HYPO-OSMOLALITY AND HYPONATREMIA SNOMED Code(s): 82056375 Comment: - Acute on chronic, improving - Check BMP today (10) DVT prophylaxis Code(s): RXF4615 - SNOMED Code(s): 693577012 Comment: - HSQ (11) Full code status Code(s): Z78.9 - OTHER SPECIFIED HEALTH STATUS SNOMED Code(s): 031620894 Status and Disposition: Remain inpatient, will need STR at [place].
[2018-07-14] MEDS: Metoprolol Succinate XL TAB* 25 MG PO SCH ×2 (09:41→20:04)
[2018-07-14] MEDS: amLODIPine TAB* 5 MG PO SCH (09:42)
[2018-07-14] MEDS: Isosorbide Mononitrate ER TAB* 60 MG PO SCH (09:42)
[2018-07-14] MEDS: Clopidogrel TAB* 75 MG PO SCH (09:42)
[2018-07-14] MEDS: Aspirin EC TAB* 81 MG TAB.EC PO SCH (09:46)
[2018-07-14] MEDS: Gabapentin CAP(*) 300 MG PO SCH ×3 (09:47→20:04)
[2018-07-14] MEDS: Magnesium Chloride EC TAB* 64 MG PO SCH (09:47)
[2018-07-14] MEDS: Furosemide IV* 10 MG/ML VIAL (40 MG) IV SCH (09:48)
[2018-07-14] MEDS: BuPROPion XL* 300 MG TAB.XL PO SCH (09:54)
[2018-07-14] MEDS: Insulin LISPRO* 1 UNITS UNIT SUBCUT SCH ×4 (10:46→20:27)
--- NOTE | 2018-07-14 11:07 | PN ---
Progress Note - Progress Note Date of Service: 07/14/18 SOAP: Subjective: Pt seen and examined at bedside. Minimal complaint of pain. Complains of muscle spasms in upper left leg. Denies CP, SOB, F/C. Vital Signs: Temp Pulse Resp BP Pulse Ox 97.9 F 74 16 155/58 98 07/14/18 08:04 07/14/18 08:04 07/14/18 09:47 07/14/18 08:04 07/14/18 08:04 Laboratory Last Values WBC 9.5 10^3/ul (3.5-10.8) 07/12/18 05:33 RBC 3.21 10^6/ul (4.00-5.40) L 07/12/18 05:33 Hgb 10.6 g/dl (12.0-16.0) L 07/12/18 05:33 Hct 31 % (35-47) L 07/12/18 05:33 MCV 96 fL (80-97) 07/12/18 05:33 MCH 33 pg (27-31) H 07/12/18 05:33 MCHC 35 g/dl (31-36) 07/12/18 05:33 RDW 15 % (10.5-15) 07/12/18 05:33 Plt Count 176 10^3/ul (150-450) 07/12/18 05:33 MPV 7.9 um3 (7.4-10.4) 07/12/18 05:33 Neut % (Auto) 73.6 % (38-83) 07/12/18 05:33 Lymph % (Auto) 15.8 % (25-47) L 07/12/18 05:33 [place] % (Auto) 9.4 % (0-7) H 07/12/18 05:33 Eos % (Auto) 0.5 % (0-6) 07/12/18 05:33 Baso % (Auto) 0.7 % (0-2) 07/12/18 05:33 Absolute Neuts (auto) 7.0 10^3/ul (1.5-7.7) 07/12/18 05:33 Absolute Lymphs (auto) 1.5 10^3/ul (1.0-4.8) 07/12/18 05:33 Absolute Monos (auto) 0.9 10^3/ul (0-0.8) H 07/12/18 05:33 Absolute Eos (auto) 0 10^3/ul (0-0.6) 07/12/18 05:33 Absolute Basos (auto) 0.1 10^3/ul (0-0.2) 07/12/18 05:33 Absolute Nucleated RBC 0 10^3/ul 07/12/18 05:33 Nucleated RBC % 0 07/12/18 05:33 INR (Anticoag Therapy) 0.98 (0.77-1.02) 07/09/18 15:23 APTT 49.3 seconds (26.0-36.3) H 07/09/18 15:23 Sodium 133 mmol/L (135-145) L 07/14/18 08:25 Potassium 3.8 mmol/L (3.5-5.0) 07/14/18 08:25 Chloride 94 mmol/L (101-111) L 07/14/18 08:25 Carbon Dioxide 30 mmol/L (22-32) 07/14/18 08:25 Anion Gap 9 mmol/L (2-11) 07/14/18 08:25 BUN 12 mg/dL (6-24) 07/14/18 08:25 Creatinine 0.62 mg/dL (0.51-0.95) 07/14/18 08:25 Est GFR ( Amer) 113.9 (>60) 07/14/18 08:25 Est GFR (Non-Af Amer) 94.1 (>60) 07/14/18 08:25 BUN/Creatinine Ratio 19.4 (8-20) 07/14/18 08:25 Glucose 280 mg/dL (70-100) H 07/14/18 08:25 POC Glucose (mg/dL) 285 mg/dL (70-100) H 07/14/18 07:21 Calcium 9.2 mg/dL (8.6-10.3) 07/14/18 08:25 Magnesium 1.7 mg/dL (1.9-2.7) L 07/14/18 08:25 Total Bilirubin 0.60 mg/dL (0.2-1.0) 07/14/18 08:25 AST 11 U/L (13-39) L 07/14/18 08:25 ALT 11 U/L (7-52) 07/14/18 08:25 Alkaline Phosphatase 57 U/L (34-104) 07/14/18 08:25 Troponin I 0.01 ng/mL (<0.04) 07/09/18 15:23 B-Natriuretic Peptide 342 pg/mL (-100) H 07/12/18 05:30 Total Protein 6.7 g/dL (6.4-8.9) 07/14/18 08:25 Albumin 3.4 g/dL (3.2-5.2) 07/14/18 08:25 Globulin 3.3 g/dL (2-4) 07/14/18 08:25 Albumin/Globulin Ratio 1.0 (1-3) 07/14/18 08:25 TSH 1.56 mcIU/mL (0.34-5.60) 07/09/18 15:23 Urine Color Yellow 07/10/18 02:15 Urine Appearance Clear 07/10/18 02:15 Urine pH 5.0 (5-9) 07/10/18 02:15 Ur Specific [place] 1.013 (1.010-1.030) 07/10/18 02:15 Urine Protein Negative (Negative) 07/10/18 02:15 Urine Ketones Negative (Negative) 07/10/18 02:15 Urine Blood Negative (Negative) 07/10/18 02:15 Urine Nitrate Negative (Negative) 07/10/18 02:15 Urine Bilirubin Negative (Negative) 07/10/18 02:15 Urine Urobilinogen Negative (Negative) 07/10/18 02:15 Ur Leukocyte Esterase 1+ (Negative) A 07/10/18 02:15 Urine WBC (Auto) 1+(6-10/hpf) (Absent) A 07/10/18 02:15 Urine RBC (Auto) Absent (Absent) 07/10/18 02:15 Ur Squamous Epith Cells Present (Absent) A 07/10/18 02:15 Urine Bacteria 1+ (Absent) A 07/10/18 02:15 Hyaline Casts Present (Absent) A 07/10/18 02:15 Urine Glucose 1+(50 mg/dl) (Negative) A 07/10/18 02:15 Objective: splint intact. Calves soft, nontender. NVI Assessment: s/p ORIF left ankle bimall fx Plan: NWB LLE Pain control - Will add Flexeril for spasms DVT prophylaxis - Heparin Hospitalists co-managing D/C when STR bed available
[2018-07-14] MEDS: Cyclobenzaprine TAB* 10 MG PO PRN (11:33)
[2018-07-14] MEDS: traMADol TAB* 50 MG PO PRN ×2 (12:35→20:03)
[2018-07-14] MEDS: Atorvastatin* 40 MG TAB PO SCH (18:07)
[2018-07-15] MEDS: Acetaminophen TAB* 325 MG PO SCH ×2 (02:29→08:05)
[2018-07-15] MEDS: traMADol TAB* 50 MG PO PRN ×2 (02:59→09:48)
[2018-07-15] MEDS: Cyclobenzaprine TAB* 10 MG PO PRN ×2 (02:59→12:12)
[2018-07-15] MEDS: Levothyroxine TAB* 100 MCG TAB PO SCH (05:40)
[2018-07-15] MEDS: Heparin VIAL(*) 5000 UNITS/ML VIAL (FIVE THOUSAND) SUBCUT SCH (05:40)
[2018-07-15 07:37] VITALS: BP 149/56
[2018-07-15] MEDS: Aspirin EC TAB* 81 MG TAB.EC PO SCH (08:03)
[2018-07-15] MEDS: Metoprolol Succinate XL TAB* 25 MG PO SCH (08:04)
[2018-07-15] MEDS: BuPROPion XL* 300 MG TAB.XL PO SCH (08:04)
[2018-07-15] MEDS: Magnesium Chloride EC TAB* 64 MG PO SCH (08:04)
[2018-07-15] MEDS: amLODIPine TAB* 5 MG PO SCH (08:04)
[2018-07-15] MEDS: Isosorbide Mononitrate ER TAB* 60 MG PO SCH (08:04)
[2018-07-15] MEDS: Gabapentin CAP(*) 300 MG PO SCH (08:05)
[2018-07-15] MEDS: Clopidogrel TAB* 75 MG PO SCH (08:05)
[2018-07-15] MEDS: Furosemide IV* 10 MG/ML VIAL (40 MG) IV SCH (08:06)
[2018-07-15] MEDS: Insulin LISPRO* 1 UNITS UNIT SUBCUT SCH ×2 (08:19→13:09)
--- NOTE | 2018-07-15 14:05 | PN ---
Progress Note - Progress Note Date of Service: 07/15/18 SOAP: Subjective: []Patient seen and examined at bedside. She feels very well, though states her splint seems to be rubbing proximally as well as on her lateral foot. Denies CP , SOB, dizziness, nausea, fever, chills. Objective: []General: NAD LLE: splint intact. No skin breakdown at areas of perceived rubbing, padding added and patient confirmed complete resolution of discomfort in these areas. Sensation intact and capillary refill brisk distally. RLE calf supple and nontender without erythema or edema Assessment: s/p ORIF left ankle bimall fx Plan: NWB LLE DVT prophylaxis - lovenox at [place] Hospitalists co-managing D/C to PMRU today Vital Signs Temp 98.1 F 07/15/18 07:36 Pulse 61 07/15/18 07:36 Resp 20 07/15/18 12:12 BP 149/56 07/15/18 07:36 Pulse Ox 95 07/15/18 07:36 Intake & Output 07/14/18 07/15/18 07/15/18 18:59 06:59 18:59 Intake Total 720 580 250 Output Total 1700 1650 750 Balance -980 -1070 -500 Weight 227 lb 11.2 oz Intake: Oral 720 580 250 Output: Urine 1700 1650 750 Other: Estimated Void Large # Bowel Movements 0 # Voids 1 Laboratory Last Values WBC 9.5 10^3/ul (3.5-10.8) 07/12/18 05:33 RBC 3.21 10^6/ul (4.00-5.40) L 07/12/18 05:33 Hgb 10.6 g/dl (12.0-16.0) L 07/12/18 05:33 Hct 31 % (35-47) L 07/12/18 05:33 MCV 96 fL (80-97) 07/12/18 05:33 MCH 33 pg (27-31) H 07/12/18 05:33 MCHC 35 g/dl (31-36) 07/12/18 05:33 RDW 15 % (10.5-15) 07/12/18 05:33 Plt Count 176 10^3/ul (150-450) 07/12/18 05:33 MPV 7.9 um3 (7.4-10.4) 07/12/18 05:33 Neut % (Auto) 73.6 % (38-83) 07/12/18 05:33 Lymph % (Auto) 15.8 % (25-47) L 07/12/18 05:33 Moca % (Auto) 9.4 % (0-7) H 07/12/18 05:33 Eos % (Auto) 0.5 % (0-6) 07/12/18 05:33 Baso % (Auto) 0.7 % (0-2) 07/12/18 05:33 Absolute Neuts (auto) 7.0 10^3/ul (1.5-7.7) 07/12/18 05:33 Absolute Lymphs (auto) 1.5 10^3/ul (1.0-4.8) 07/12/18 05:33 Absolute Monos (auto) 0.9 10^3/ul (0-0.8) H 07/12/18 05:33 Absolute Eos (auto) 0 10^3/ul (0-0.6) 07/12/18 05:33 Absolute Basos (auto) 0.1 10^3/ul (0-0.2) 07/12/18 05:33 Absolute Nucleated RBC 0 10^3/ul 07/12/18 05:33 Nucleated RBC % 0 07/12/18 05:33 INR (Anticoag Therapy) 0.98 (0.77-1.02) 07/09/18 15:23 APTT 49.3 seconds (26.0-36.3) H 07/09/18 15:23 Sodium 133 mmol/L (135-145) L 07/14/18 08:25 Potassium 3.8 mmol/L (3.5-5.0) 07/14/18 08:25 Chloride 94 mmol/L (101-111) L 07/14/18 08:25 Carbon Dioxide 30 mmol/L (22-32) 07/14/18 08:25 Anion Gap 9 mmol/L (2-11) 07/14/18 08:25 BUN 12 mg/dL (6-24) 07/14/18 08:25 Creatinine 0.62 mg/dL (0.51-0.95) 07/14/18 08:25 Est GFR ( Amer) 113.9 (>60) 07/14/18 08:25 Est GFR (Non-Af Amer) 94.1 (>60) 07/14/18 08:25 BUN/Creatinine Ratio 19.4 (8-20) 07/14/18 08:25 Glucose 280 mg/dL (70-100) H 07/14/18 08:25 POC Glucose (mg/dL) 176 mg/dL (70-100) H 07/15/18 11:55 Calcium 9.2 mg/dL (8.6-10.3) 07/14/18 08:25 Magnesium 1.7 mg/dL (1.9-2.7) L 07/14/18 08:25 Total Bilirubin 0.60 mg/dL (0.2-1.0) 07/14/18 08:25 AST 11 U/L (13-39) L 07/14/18 08:25 ALT 11 U/L (7-52) 07/14/18 08:25 Alkaline Phosphatase 57 U/L (34-104) 07/14/18 08:25 Troponin I 0.01 ng/mL (<0.04) 07/09/18 15:23 B-Natriuretic Peptide 342 pg/mL (-100) H 07/12/18 05:30 Total Protein 6.7 g/dL (6.4-8.9) 07/14/18 08:25 Albumin 3.4 g/dL (3.2-5.2) 07/14/18 08:25 Globulin 3.3 g/dL (2-4) 07/14/18 08:25 Albumin/Globulin Ratio 1.0 (1-3) 07/14/18 08:25 TSH 1.56 mcIU/mL (0.34-5.60) 07/09/18 15:23 Urine Color Yellow 07/10/18 02:15 Urine Appearance Clear 07/10/18 02:15 Urine pH 5.0 (5-9) 07/10/18 02:15 Ur Specific [place] 1.013 (1.010-1.030) 07/10/18 02:15 Urine Protein Negative (Negative) 07/10/18 02:15 Urine Ketones Negative (Negative) 07/10/18 02:15 Urine Blood Negative (Negative) 07/10/18 02:15 Urine Nitrate Negative (Negative) 07/10/18 02:15 Urine Bilirubin Negative (Negative) 07/10/18 02:15 Urine Urobilinogen Negative (Negative) 07/10/18 02:15 Ur Leukocyte Esterase 1+ (Negative) A 07/10/18 02:15 Urine WBC (Auto) 1+(6-10/hpf) (Absent) A 07/10/18 02:15 Urine RBC (Auto) Absent (Absent) 07/10/18 02:15 Ur Squamous Epith Cells Present (Absent) A 07/10/18 02:15 Urine Bacteria 1+ (Absent) A 07/10/18 02:15 Hyaline Casts Present (Absent) A 07/10/18 02:15 Urine Glucose 1+(50 mg/dl) (Negative) A 07/10/18 02:15
--- NOTE | 2018-07-15 14:31 | DS ---
CC: Dr. Chowdhury; Dr. Gordon; Dr. Samy Collins * DISCHARGE SUMMARY: DATE OF ADMISSION: 07/09/18 DATE OF DISCHARGE: 07/15/18 PRIMARY CARE PROVIDER: Dr. Sade Gordon. ATTENDING FOR THIS ADMISSION: Dr. Chowdhury. MY ATTENDING FOR TODAY: Dr. Chowdhury.* (DICTATED BY ALIE STEIN NP) HOSPITAL COURSE: This is a 72-year-old female patient with a complex past medical history of coronary artery disease with 14 stents in the past; diastolic heart failure; sick sinus syndrome, pacemaker; hyperlipidemia; hypertension; insulin- dependent diabetes mellitus; history of thyroid carcinoma , now in remission status post thyroidectomy; COPD; and also degenerative lumbar spinal disease, status post lumbar decompression. The patient had undergone a spinal surgery with Dr. Rg ponce on 05/07/18; however, the patient was at home recuperating from her surgery. For approximately 2 to 3 days prior to admission to the emergency department, she began having generalized weakness and falling. The patient states that she thinks she twisted her ankle at one point, which made her even further unsteady on her feet. Patient reports when she was on her way to a doctor's appointment, when she was trying to get out of her car, when she did, she felt weak again, fell getting out of the passenger side and when she let go off her walker and tripped landing on her left ankle. After the patient was unable to bear weight , she was brought into the ED. Imaging in the emergency department showed a left bimalleolar fracture and subluxation of the left ankle. She was also found to be hyponatremic, hyperkalemic, with [id number] renal insufficiency. The patient was admitted. She was seen by Orthopedics. The patient underwent an open reduction and internal fixation of her left lower extremity on 07/10/18. Patient's postoperative course had some mild complications. She was having some delirium, likely secondary to Dilaudid, pain medication, and anesthesia; however, this resolved within approximately 24 hours after the patient was taken off narcotics and placed on standing Tylenol and then only tramadol as needed. The patient will have to maintain non- weightbearing status on the affected side. Initially, she was having trouble understanding this; however, she has progressed much further over the last couple of days and is doing better with her ambulation and transfers. The patient was evaluated by [facility] given her recent spine surgery and now with a new fracture, it was determined she was a candidate for acute rehab in our [facility]. The patient will be transferred to that unit today. The patient was having desaturations also during the postoperative period and was placed on oxygen. X- ray imaging of her chest showed some congestion and some mild pulmonary edema. The patient received IV Lasix. She does take Lasix p.o. at home; however, she was probably slightly fluid overloaded from the IV fluids given during the surgery. The patient responded well to her Lasix. Her BNP was mildly elevated at 342 and she did have a little bit of a weight gain; however, as of yesterday , she had lost, she has gone down from 230 pounds to 223. Breathing improved; initially, she was on 5 L nasal cannula, she is currently down to 1 L today. PAST MEDICAL HISTORY: The patient's past medical history is as above. REVIEW OF SYSTEMS: Today, the patient is not complaining of any fever, fatigue , or chills. No headache, no shortness of breath, no chest pain, no abdominal pain, no nausea, no vomiting, no diarrhea or constipation. She is having spasm- like pain in the left lower extremity, but no further constitutional complaints. PHYSICAL EXAMINATION: On day of discharge, vital signs are blood pressure 149/ 56, heart rate 61, respiratory rate 20, O2 saturation 95% on 1 L, temperature is 98.1. HEENT: The patient is atraumatic, normocephalic. PERRLA with nonicteric sclerae. Neck is supple and nontender, no JVD noted, no carotid bruit auscultated. Cardiovascular: S1, S2 are present. Rate is regular, sinus rhythm. No murmurs, gallops, or rubs noted. The lungs are clear at the apices bilaterally, slightly diminished at the bases, with no wheezing, rhonchi, or rales noted. Abdomen is soft, nontender, nondistended. Positive bowel sounds in all 4 quadrants. No organomegaly appreciated. is deferred. Musculoskeletal: There is no clubbing, no cyanosis, and no edema. She does have a rigid splint and Miguel wrap to the lower extremity. She has brisk cap refill on the affected side. Again, she is non- weightbearing on the left lower extremity. Neurologic: She is currently grossly intact, alert and oriented x4. No acute focal deficits noted. Psychiatric: She is cooperative and appropriate. LABORATORY DATA/DIAGNOSTIC STUDIES: Laboratories dated 07/12/18: WBC is 9.5, RBC is 3.21, hemoglobin 10.6, hematocrit 31, platelets 176. Sodium 133, which was improved from 129; potassium 3.8; chloride 94; BUN 12; creatinine 0.62, down from 1.39; GFR is 94.1; glucose is 191; calcium 9.2. Magnesium initially was 1.4, has been repleted multiple times, today is 1.7, and she is currently on supplementation. AST is 11, ALT 11, alk phos 57, protein 6.7, albumin 3.4, globulin 3.3, and TSH is 1.56. Chest x-ray, as noted above, with mild pulmonary congestion. Imaging of the ankle at admission showed diffuse tissue swelling, there is an oblique slightly comminuted intra-articular fracture of the medial malleolus, the distal fragment is displaced lateral relative to the proximal fragment, there is also an oblique intra-articular fracture of the distal fibula. The distal fragment is displaced lateral and posterior approximately one-half shaft diameter. DISCHARGE DIAGNOSES: 1. Status post mechanical fall with bimalleolar left lower extremity fracture, status post open reduction internal fixation. 2. Acute diastolic heart failure, now resolved. 3. General weakness and deconditioning, likely secondary to chronic disease, recent surgeries. 4. History of coronary heart disease, stable on home medications. 5. Chronic obstructive pulmonary disease, not in acute exacerbation. 6. Insulin-dependent diabetes mellitus, currently on insulin pump. 7. History of hyperlipidemia, maintained on Lipitor. 8. History of hypertension, stable on Norvasc, Imdur, and a beta-nadya. 9. [id number] hyponatremia, at baseline. DISPOSITION: The patient will be discharged to [facility] today. I have spoken with Soniya, the patient has been accepted. DISCHARGE MEDICATIONS: Include: 1. Tylenol 650 mg q.6 hours. 2. Albuterol inhaler 2 puffs q.4 hours as needed. 3. Baby aspirin 81 mg daily. 4. Bupropion XL 300 mg daily. 5. Symbicort 160/4.5 one puff inhaled 2 times a day. 6. Vitamin D3 2000 units daily. 7. Plavix 75 mg daily. 8. Flexeril 10 mg 3 times a day as needed. 9. Furosemide 20 mg daily. 10. Gabapentin 600 mg 3 times a day. 11. Isosorbide mononitrate 60 mg in the morning. 12. Levothyroxine 200 mcg in the morning. 13. Losartan 100 mg in the morning. 14. Amitiza 8 mcg p.o. q.8 hours. 15. Slow-Mag 64 mg daily. 16. Metoprolol succinate XL 25 mg 2 times a day. 17. Nexium 40 mg daily. 18. Nitro 0.4 mg sublingual q.5 minutes as needed. 19. MiraLax 17 g daily. 20. Potassium chloride 20 mEq daily. 21. Ranolazine 1000 mg 2 times a day. 22. Rosuvastatin 20 mg in the evening. 23. Januvia 100 mg daily. 24. Tramadol 50 mg q.6 hours as needed. 25. Metformin 1000 mg 2 times a day. 26. Insulin pump per patient's prior dosing schedule. The patient was discharged to [facility] in stable condition. All questions were answered. The patient stated her understanding of her discharge instructions and followups. The patient is instructed to follow up with the [facility] human resources compliance manager today for rehabilitation. The patient should also follow up with Dr. Gordon, her primary care provider, after she is released from rehab and also Orthopedics in 10 to 14 days for wound check and evaluation of surgical sites. ALIE STEIN NP [id number]/[facility] #: [id number] [facility]ICAL CENTERMiranda
== END 2018-07-15 12:59 | DRG 492 ==
LOC: ED 13:57 → MEDTELE 16:54
PROVIDERS: ADMIT Hospitalist; ATTEND Hospitalist
PROC: 0QSH04Z Reposition Left Tibia with Internal Fixation Device, Open Approach (ICD-10-PCS; 2018-07-10)
PROC: 0SSG04Z Reposition Left Ankle Joint with Internal Fixation Device, Open Approach (ICD-10-PCS; 2018-07-10)
PROC: 0QSK04Z Reposition Left Fibula with Internal Fixation Device, Open Approach (ICD-10-PCS; principal; 2018-07-10 17:30)
DX: S82.842A Displaced bimalleolar fracture of left lower leg, initial encounter for closed fracture (principal); I50.31 Acute diastolic (congestive) heart failure; E87.1 Hypo-osmolality and hyponatremia; N17.9 Acute kidney failure, unspecified; W18.39XA Other fall on same level, initial encounter; Y92.481 Parking lot as the place of occurrence of the external cause; I11.0 Hypertensive heart disease with heart failure; I25.10 Atherosclerotic heart disease of native coronary artery without angina pectoris; J44.9 Chronic obstructive pulmonary disease, unspecified; E11.9 Type 2 diabetes mellitus without complications; Z79.4 Long term (current) use of insulin; E78.5 Hyperlipidemia, unspecified; Z95.5 Presence of coronary angioplasty implant and graft; I49.5 Sick sinus syndrome; Z95.0 Presence of cardiac pacemaker; M48.061 Spinal stenosis, lumbar region without neurogenic claudication; Z85.850 Personal history of malignant neoplasm of thyroid; E87.5 Hyperkalemia; E03.9 Hypothyroidism, unspecified; E66.01 Morbid (severe) obesity due to excess calories; Z68.31 Body mass index [BMI] 31.0-31.9, adult; R53.1 Weakness; E86.0 Dehydration; Z79.84 Long term (current) use of oral hypoglycemic drugs; Z79.02 Long term (current) use of antithrombotics/antiplatelets; Z79.82 Long term (current) use of aspirin; Z79.899 Other long term (current) drug therapy; Z09 Encounter for follow-up examination after completed treatment for conditions other than malignant neoplasm; Z88.5 Allergy status to narcotic agent; Z88.0 Allergy status to penicillin; Z88.8 Allergy status to other drugs, medicaments and biological substances; Z82.3 Family history of stroke; Z82.49 Family history of ischemic heart disease and other diseases of the circulatory system; Z80.1 Family history of malignant neoplasm of trachea, bronchus and lung; Z87.891 Personal history of nicotine dependence
CPT/HCPCS: 36415; 70450; 71045; 76000; 80048; 80053; 81003; 81015; 83735; 83880; 84443; 84484; 85025; 85610; 85730; 87040; 87086; 93005; 99284; A9270-GY; G8978-GP-CM; G8979-GP-CI; G8987-GO-CL; G8988-GO-CI; J1170; J1644; J1940; J2270; J2405; J2704; J2795; J3010; J3475; J7611

== ENCOUNTER 2018-07-15 11:11 | Inpatient (IN) | payer MEDICARE, MEDICAID ==
--- OUTSIDE RECORDS SUMMARY | 2018-07-15 13:17 | XMS REPORT ---
:1945 External Reference #:[id number] Author Organization [employer] Address [address] [place] [address] [place] [address] Phone [phone] Care Team Providers Name Role Phone Sade Gordon MD Primary Care Physician Unavailable Payers Type Date Identification Numbers Payment Provider Subscriber Medicare Primary Effective: Policy Number: Medicare Taylor Randhawa 2000 [id number] PayID: [id number] [address] [place] [address] Medigap Part B Policy Number: [id number] Medicaid Taylor Randhawa PayID: [id number] [address] [place] [address] Commercial Effective: 2015 Policy Number: 100% [employer] Taylor Carmona Edis Expires: 2017 PayID: [id number] [address] Problems Date Description Provider Status Onset: 03/26/2012 [...] Chronic ischemic heart disease Bebeto Perez M.D., [facility], Active [facility] Onset: 09/02/2013 Essential hypertension Bebeto Perez M.D., [facility], Active [facility] Onset: 09/02/2013 Hyperlipidemia Bebeto Perez M.D., [facility], Active [facility] Onset: 03/09/2014 Preoperative cardiovascular Bebeto Perez M.D., [facility], Active examination [facility] Onset: 09/22/2015 Chronic ischemic heart disease, Bebeto Perez M.D., [facility], Active unspecified [facility] Onset: 02/29/2016 Heart murmur Bebeto Perez M.D., [facility], Active [facility] Onset: 02/29/2016 Mitral valve disorder Bebeto Perez M.D., [facility], Active [facility] Onset: 03/19/2016 Dyspnea Bebeto Perez M.D., [facility], Active [facility] Onset: 08/10/2016 Full respiratory system Soledad Mcclain MD Active examination Onset: 08/10/2016 Emphysema, unspecified Soledad Mcclain MD Active Onset: 06/07/2017 Cardiac pacemaker in situ Dalia Luke M.D. Active Onset: 07/11/2017 Chronic diastolic heart failure Bebeto Perez M.D., [facility], Active [facility] Onset: 09/11/2017 Unspecified diastolic (congestive) Bebeto Perez M.D., [facility] , Active heart failure [facility] Onset: 12/30/2017 Chest pain Bebeto Perez M.D., [facility], Active [facility] Onset: 04/16/2018 Neurogenic claudication Andrea [...] 1 by mouth Z48.89 s every 6 Rg, hours as M.D. needed pain Clopidogrel 03/19 Active Tablets 75mg 90tab 1 by mouth R06.02 Bebeto Bisulfate s every day Thaddeus Perez, [facility] Isosorbide 03/09 Active Tablets ER 60mg 90tab 1 by mouth Bebeto Mononitrate 24HR s every day Thaddeus Perez, [facility], [facility] Nitrostat 06/18 Active Tablets Sub 0.4mg 25tab 1 sl Pedro S. s q5mins x3 Mitchell, as needed DO [facility] for chest pain, if no relief call [...] 12HR bs twice a Flork, roland Travis, [facility] BD Pen Mcgrann 05/05 Active Misc 31G X 8 540un for use Jill Short/Ultrafine/ mm its with Plata, 1G X 5/16" insulin M.D. pens as directed Metoprolol Active Tablets ER 25mg 270ta take 1 tab Bebeto Succinate ER /0000 24HR bs in the Stefek, morning M.D., and 1 tab FACC, in the [facility] [place] Metformin HCL Active Tablets 1000mg 60tab 1 po bid Unknown /0000 s Humalog Active 100Units/ use via Unknown /0000 ML pump max 125 per day Gabapentin Active Tablets 600mg 1 tab po Walker, /0000 tid prn MD Clyde Levothyroxine Active Tablets 200mcg 30tab 1 by mouth 244.0 Unknown Sodium /0000 s every day Aspirin Active Tablets 81mg 1 by mouth Unknown /0000 every day Losartan Active Tablets 100mg 1 by mouth Unknown Potassium /0000 every day Bupropion HCL ER Active Tablets ER 300mg one tab Walker, (XL) / 24HR daily MD Clyde Amitiza Active Capsules 8mcg twice Gen[place], / daily EUSEBIO Yun Crestor Active Tablets [...] 60tab 1 by mouth s every 6 [place], - hours as M.D. 06/13 /2017 pain Sulfamethoxazole/ 08/14 Hx Tablets 800-160mg 60tab 1 by mouth M86.172 Aj Trimethoprim s twice D. - daily Papoqueen, 07/27 M.D. /2015 Hydrochlorothiazi 06/30 Hx Tablets 25mg 30tab one pill a Bebeto de s day Cindy Perez M.D., 06/03 [facility] Clopidogrel 03/19 Hx Tablets 300mg 1tabs take one R06.02 Bebeto Bisulf today Cindy Perez M.D., 08/26 [facility] [place] 08/10 Hx Tablets 5-325mg 30tab 1 by mouth Romeo s twice a Michael, - day as Thaddeus 02/25 pain Atorvastatin 01/24 Hx Tablets 80mg 90tab 1 by mouth Bebeto Christianson s every day Cindy Perez M.D., 07/27 [facility] Clopidogrel 05/12 Hx Tablets 75mg 90tab 1 tab by Bebeto Sneed s mouth Chris, - every day MTrinaDTrina, 02/25 [facility] Naproxen 12/02 Hx Tablets 500mg 60tab 1 po bid s prn Cindy Renae M.D. 03/21 [place] 12/02 Hx Tablets 5-325mg 60tab 1-2 tabs s po q4-6 h Batool, - prn pain Kavin.DTrina 03/08 Aspirin 09/02 Hx Tablets 81mg 1 po qd Cindy Perez M.D., 12/02 [facility] Clopidogrel 03/25 Hx Tablets 75mg 90tab 1 tab by Bebeto s mouth Chris, - every day Thaddeus, 05/12 [facility] Onetouch Ultra 09/22 Hx Strips 450un [...] Aerosol 18-103mcg 1unit 2 puff q 6 Ibrahima /2011 / s hours as Chad knowles [...] 1 po qd Cindy Townsend M.D., 03/25 [facility] Ambien 03/25 Hx Tablets 5mg 30tab [...] 40mg 90cap 1 po qd Jill / Cindy Rivera M.D. 02/25 Renexa Hx 1000mg 2x [...] mouth Stefek, - every day M.D., 03/15 [facility] Aspirin Hx Tablets DR 325mg 1 po qd Unknown / - 09/02 Isosorbide Hx Tablets ER 30mg 90tab 1 tab by Bebeto Mononitrate ER /0000 24HR s mouth Stefek, - every day M.D., 03/09 [facility] Fish Oil Hx Capsules 1000mg 1 po bid Unknown Burp-Less /0000 - 12/02 Micardis HCT Hx Tablets 80-25mg 90tab 1 tab by Bebeto /0000 s mouth Stefek, - every day M.D., 06/30 [facility] Micardis HCT Hx Tablets 80-12.5mg 90tab [...] HCL Hx Tablets 50mg 1 tab po Walker, /0000 qid Cindy Tagn MD 03/21 Escitalopram Hx Tablets 20mg 1 tab po Walker, Oxalate daily Cindy Tang MD 09/21 Lipitor [...] CPT Code Status Date Vaccine Lot # [id number] Given 08/05/2012 Zoster (Zostavax) [id number] Given 07/11/2012 Pneumonia Vaccine 36757 Given 07/11/2012 Influenza Virus 3Yrs & Over 92008 Ordered 07/11/2012 Pneumonia Vaccine Vital Signs Date [...] 04/10/2012 Hemoglobin A1c 7.5 High 5-7 1 Limousine Driver: [id number] 2 Limousine Driver: [id number] Limousine Driver: [id number] 4 Limousine Driver: [id number] 5 Because ethnic data is not always [...] and in selective patients <6.0%.Please refer to [place] [employer] Diabetic care guidelines for further information. 16 FASTING 17 Test Performed by: [place] [address] Conservation Policy Analyst: Luis Escobedo II, M.D., Ph.D. 18 ADDITIONAL INFORMATION This test was developed and its performance characteristics determined by [facility] in a manner consistent with CLIA requirements. This test has not been cleared or approved by the U.S. Food and Drug Administration. Test Performed by: [place] [address] Conservation Policy Analyst: Luis Escobedo II, M.D., Ph.D. 19 Limousine Driver: [id number] MOLIVIATIS GITA 20 Limousine Driver: [id number] MOLIVIATIS GITA 21 Limousine Driver: [id number] MOLIVIATIS GITA 22 Limousine Driver: [id number] MOLIVIATIS GITA 23 Limousine Driver: [id number] MOLIVIATIS GITA 24 Limousine Driver: [id number] MEIXELL ROMELIA 25 Limousine Driver: [id number] MEIXELL ROMELIA 26 Limousine Driver: [id number] PARLETT EBONY R 27 Limousine Driver: [id number] PARLETT EBONY R 28 Limousine Driver: [id number] RANDI PELAYO 29 Limousine Driver: [id number] RANDI PELAYO 30 Acute inflammation: >10.00 31 Reference ranges based on room air. 32 Limousine Driver: YUE PELAYO 33 Please note: The following [...] 0.03 ng/mL Not supportive of diagnosis of [place] 0.03 - 0.50 ng/mL Indeterminate: suggest serial studies if clinically indicated. Greater than 0.5 ng/mL Consistent with diagnosis of [place] 35 Because ethnic data is not always [...] (or dialysis) 36 Verbal to CRYSTAL by [id number] at 0928 on 03/12/14.~Results read back accurately. [...] IN SELECTIVE PATIENTS <6.0%. PLEASE REFER TO [place] [employer] DIABETIC CARE GUIDELINES FOR FURTHER INFORMATION. 43 MICROALBUMINURIA IN A RANDOM SAMPLE IS DEFINED : MICROALBUMIN/CREATININE RATIO OF 30-299 ug/mg. . 44 A metabolite of Naproxen, O-desmethylnaproxen, has been shown to interfere with the Jendrassik-Lonetree method for measuring total bilirubin. Samples from patients who have taken Naproxen have shown spurious elevation in total bilirubin levels. 45 Please note updated reference range, effective 06/01/10 46 -- REFERENCE VALUE -- 25-HYDROXY D TOTAL (D2+D3) Optimum levels in the normal population are 25-80 Test Performed by: [address] [address] Conservation Policy Analyst: Pan Maravilla III, M.D. 47 Please note [...] has been shown to interfere with the Jendrassik-Lonetree method for measuring total bilirubin. Samples from [...] Procedures Date CPT Code Description Status 06/09/2018 94883 Pace Maker Eval W/Iterative Adjment Dual Lead Completed 06/09/2018 79499 Pace Maker Eval W/Iterative Adjment Dual Lead Completed 05/06/2018 82359 Grijalva/Facet/Foraminotomy;Vertebral Segment; Lumbar Completed 05/06/2018 04040 Grijalva/Facet/Foraminotomy;Vertebral Segment; Lumbar Completed 04/30/2018 88778 EKG Tracing & Interpretation Completed 12/30/2017 40171 EKG Tracing & Interpretation Completed 12/09/2017 29175 EKG, Interpretation Only Completed 12/09/2017 13838 Stress Test Supervsn W/Out I/R Completed 12/09/2017 17305 Treadmill Interp/Report Only Completed 12/08/2017 54742 EKG, Interpretation Only Completed 12/06/2017 15025 Pace Maker Eval W/Iterative Adjment Dual Lead Completed 12/06/2017 20029 Pace Maker Eval W/Iterative Adjment Dual Lead Completed 09/11/2017 03017 EKG Tracing & Interpretation Completed 08/30/2017 32376 Pace Maker Eval W/Iterative Adjment Dual Lead Completed 08/30/2017 75923 Pace Maker Eval W/Iterative Adjment Dual Lead Completed 07/30/2017 03333 Pace Maker Eval W/Iterative Adjment Dual Lead Completed 07/09/2017 85736 Pacemaker Check Remote Up To 90Days Completed Single,Dual,Multiple Lead 07/09/2017 75606 Icd Eval Sing,Dual,Multi Lead Remote Recpt Transm Tech Completed Rev Tech S 06/01/2017 34995 EKG, Interpretation Only Completed 05/31/2017 40170 Perm Pacemaker Av Sequential Atrial And Ventricular Completed 05/29/2017 47802 ECHO Transthorasic Realtime 2D W Doppler & Color Flow Completed Hosp 05/29/2017 53907 EKG, Interpretation Only Completed 08/28/2016 24840 Apply Total Contact Leg Cast Completed 08/24/2016 84191 Hyperbaric Oxygen Therapy By Physician Completed 08/23/2016 50443 Hyperbaric Oxygen Therapy By Physician Completed 08/22/2016 31881 Hyperbaric Oxygen Therapy By Physician Completed 08/21/2016 91491 Hyperbaric Oxygen Therapy By Physician Completed 08/21/2016 26113 Removal Devitalization Tissue Wound Less Than Equal 20 Completed Square 08/14/2016 41391 Removal Devitalization Tissue Wound Less Than Equal 20 Completed Square CM 08/10/2016 56198 Diffusing Capacity Completed 08/10/2016 91673 Plethysmography Determination Lung Volumes & Per Airway Completed Resist 08/10/2016 41997 Pulmonary Function><Bronchodil Completed 08/09/2016 17706 Apply Total Contact Leg Cast Completed 08/07/2016 79083 Removal Devitalization Tissue Wound Less Than Equal 20 Completed Square CM 08/02/2016 45860 Removal Devitalization Tissue Wound Less Than Equal 20 Completed Square 07/24/2016 38107 Removal Devitalization Tissue Wound Less Than Equal 20 Completed Square CM 03/14/2016 96876 ECHO Transthorasic Realtime 2D W Doppler & Color Flow Completed Hosp 02/28/2016 09721 Treadmill Interp/Report Only Completed 02/28/2016 43460 Stress Test Supervsn W/Out I/R Completed 02/27/2016 60644 EKG Tracing & Interpretation Completed 09/22/2015 38124 EKG Tracing & Interpretation Completed 08/10/2015 19498 FX Metatarsal Care Completed 09/24/2014 30130 EKG Tracing & Interpretation Completed 03/17/2014 07365 ECHO Transthorasic Realtime 2D W Doppler & Color Flow Completed Hosp 03/17/2014 23157 Treadmill Interp/Report Only Completed 03/17/2014 37427 Stress Test Supervsn W/Out I/R Completed 03/09/2014 20168 EKG Tracing & Interpretation Completed 01/01/2014 72566 Rad Exam; Foot Limited Completed 01/01/2014 15751 Rad Exam; Foot Limited Completed 12/09/2013 84374 Rad Exam; Foot Limited Completed 12/02/2013 64785 FX Metatarsal Care Completed 12/02/2013 66802 FX Metatarsal Care Completed 09/02/2013 32783 EKG Tracing & Interpretation Completed 02/11/2013 76297 EKG Tracing & Interpretation Completed 06/20/2012 Bone Mineral Density Test Completed 04/15/2012 Diabetic Foot Exam Completed 04/03/2012 Diabetic Retinal Eye Exam Completed 10/09/2011 10578 Rad Shoulder Comp, Min. 2 Views Completed 10/09/2011 80834 Rad Shoulder Comp, Min. 2 Views Completed 10/09/2011 29244 Rad Shoulder Comp, Min. 2 Views Completed 09/18/2011 07628 Closed trtmt prox humeral fx Completed 09/06/2011 03586 Rad Shoulder Comp, Min. 2 Views Completed 09/06/2011 45054 Closed trtmt prox humeral fx Completed 06/13/2011 90362 Rad Exam; Ankle Comp Completed 05/29/2011 78982 CLSD TX Distal Fib FX (Lateral Malleolus) w/o Completed manipulation Encounters Type Date Location Provider CPT E/M Dx Office Visit 05/14/2018 [place] donal Nieves M.D. 02382 E11.9 9:19a Hospitalists B95.2 N39.0 Office Visit 05/13/2018 9:18a [facility], Laura Holderhn, 01884 E11.9 Hospitalists M.D. N39.0 B95.2 Office Visit 05/12/2018 9:07a [facility], Laura Holderhn, 81197 E11.9 Hospitalists M.D. N17.9 E87.1 B95.2 N39.0 J18.9 Office Visit 05/11/2018 1:15p [facility], Laura Holderhn, 25149 M54.5 Hospitalists M.D. E87.1 N39.0 B95.2 Office Visit 05/10/2018 9:06a [facility], [place] [address] E11.9 Hospitalists N39.0 M79.662 Office Visit 05/08/2018 9:06a [facility], Luis Alexander, 22252 M79.662 Hospitalists [place] E11.9 I25.10 Z98.1 Office Visit 04/30/2018 3:20p [facility] Molly Perez M.D., 98537 Z01.810 [employer] AT [facility] Z95.0 I25.10 M48.062 Office Visit 04/16/2018 1:50p [facility] Andrea Diez, 30001 M48.062 Of [place] Travis Office Visit 03/26/2018 1:45p [facility] Susie Kan PA-C 75724 M48.062 Of [facility] M51.36 R09.89 Z95.0 Office Visit 12/30/2017 11:20a [facility] Molly Perez M.D., 35003 R07.9 [employer] AT [facility] I10 E78.2 I25.10 Office Visit 12/09/2017 3:14p [facility] Molly Perez M.D., 31160 [employer] AT [facility] Office Visit 10/01/2017 10:30a [facility] [place] [address] I10 [employer] AT [facility] Office Visit 09/30/2017 10:00a [facility] Molly Perez M.D., 96446 I10 [employer] AT [facility] Office Visit 09/11/2017 11:40a [facility] Of Bebeto Perez M.D., 61346 R06.02 [employer] AT [facility] Z95.0 I25.9 E78.5 I50.30 I10 Office Visit 07/11/2017 3:40p [facility] Of Bebeto Perez M.D., 39677 Z95.0 [employer] AT [facility] I25.10 I50.32 R06.02 Office Visit 06/07/2017 11:30a [facility] Of Dalia Luke M.D. 54213 R00.1 [facility] Z95.0 I25.10 E16.2 I50.9 Office Visit 06/01/2017 2:08p [facility], Brandi Allison, 64840 R00.1 Hospitalists Thaddeus I50.33 I25.10 E11.9 Office Visit 05/31/2017 2:06p [facility], Brandi Allison, 17611 R00.1 Hospitalists [place] I25.10 I50.33 E11.9 [facility] Visit 05/30/2017 [facility], 27291 R00.1 Hospitalists [place] I25.10 I50.33 E11.9 Office Visit 05/29/2017 3:46p [facility] Of Dalia Luke M.D. 67062 Z95.0 [facility] I49.5 I50.30 Office Visit 05/29/2017 2:05p [facility] [place] [address] R00.1 Assoc, Hospitalists [place] I25.10 I50.33 E11.9 Office Visit 09/26/2016 2:00p [facility] Of [facility] Bebeto Perez M.D., 82996 I10 AT [facility] I25.10 E78.2 E66.9 Office Visit 09/11/2016 8:26a [facility] AT Andrea Chen, 56364 E11.621 [facility] MNiki Office Visit 08/28/2016 8:50a [facility] Aj Johnson 43951 E11.621 Infectious Diseases Thaddeus Calzada Office Visit 08/15/2016 12:00p [facility] [place] [address] Z01.811 Services Of [employer] Office Visit 08/14/2016 11:30a [facility] Aj Johnson 99771 M86.172 Infectious Diseases Thaddeus Calzada E11.40 Office Visit 08/10/2016 7:30a [facility] [place] [address] J43.9 Services Of [employer] Z01.811 E11.621 L97.529 Office Visit 07/24/2016 11:33a [facility] AT Andrea KevinTrina MulliganLake, 86512 E11.621 [facility] Thaddeus Office Visit 03/19/2016 3:00p [facility] Molly Perez M.D., 03484 I34.0 [employer] AT [facility] I25.10 I34.2 R06.02 Office Visit 03/12/2016 2:40p [facility], Kim Hernandez N.P. 88784 R07.9 Hospitalists I25.10 K21.9 Office Visit 02/29/2016 9:40a [facility] Molly Perez M.D., 10008 I25.9 [employer] AT [facility] I34.0 Office Visit 02/27/2016 10:40a [facility] Of [facility] Bbeeto Perez M.D., 43840 I10 AT [facility], [facility] E78.5 I25.9 Office Visit 09/22/2015 11:00a [facility] Molly Perez M.D., 47808 I25.9 [employer] AT [facility] I10 E78.5 E66.9 Office Visit 09/24/2014 3:20p [facility] Molly Perez M.D., 80324 414.9 [employer] AT [facility] 401.9 272.4 Office Visit 03/22/2014 3:15p [facility] Molly Perez M.D., 18706 V72.81 [employer] AT [facility] 414.9 401.9 272.4 Office Visit 03/09/2014 3:30p [facility] Of Bebeto Perez M.D., 27040 414.9 [facility] AT [facility] 401.9 272.4 V72.81 Office Visit 09/02/2013 2:45p [facility] Of Bebeto Perez M.D., 47035 414.9 [facility] AT [facility] 401.9 272.4 Office Visit 02/11/2013 3:30p [facility] Of Bebeto Perez M.D., 76697 414.9 [facility] AT [facility] 401.9 Office Visit 09/17/2012 10:10a [facility] Jill Plata M.D. 13587 244.0 - [place] 787.02 401.9 311 799.81 Office Visit 08/05/2012 10:30a [facility] Jill Plata 80298 250.02 - [place] M.DTrina 244.0 700 787.02 733.90 401.9 V04.89 Office Visit 06/18/2012 12:10p [facility] Jill Plata 42132 250.02 - [place] M.DTrina 311 781.91 Office Visit 05/19/2012 10:00a [facility] Jill Plata 81100 250.02 - [place] M.DTrina 311 244.0 782.3 327.02 Office Visit 04/10/2012 10:30a [facility] Jill Plata 76830 250.02 - [place] Kavin.Elizabeth 272.2 780.52 V10.87 244.0 735.4 Office Visit 03/25/2012 10:00a [facility] Jill Plata 25441 250.02 - [place] M.DTrina 311 401.9 414.01 272.2 780.52 278.00 Office Visit 10/09/2011 1:45p Orth[facility] Services Quincy Carrillo 30869 812.03 Of Reuben Vera 812.09 Office Visit 09/21/2011 9:00a [facility] Shanique Adorno, 46697 812.00 Of Richard Travis Office Visit 09/18/2011 9:00a [facility] Aldair Fernandes M.D. 33585 812.09 Of Richard 812.00 Office Visit 09/06/2011 9:30a [facility] Quincy Carrillo 24140 812.09 Of Richard Monroy R.P.A.-Mario 812.00 Plan of Care 06/13/2018 - Andrea Diez M.D.Z48.89 Encounter for other specified surgical aftercareFollow up:As needed
[2018-07-15] MEDS ORDERED: Bisacodyl SUPP* 10 MG SUPP PR PRN (13:33)
[2018-07-15] MEDS ORDERED: Dextrose 50% Syringe 50 ML* 25 GM/50 ML SYRINGE IV PUSH PRN (13:44)
[2018-07-15] MEDS ORDERED: HYDROcodone/ACETAMIN 5-325 MG* 1 TAB PO PRN (14:18)
[2018-07-15] MEDS: Acetaminophen TAB* 325 MG PO PRN (14:56)
[2018-07-15] MEDS: Gabapentin CAP(*) 300 MG PO SCH ×2 (14:57→21:12)
[2018-07-15] MEDS: Heparin VIAL(*) 5000 UNITS/ML VIAL (FIVE THOUSAND) SUBCUT SCH ×2 (15:08→21:11)
[2018-07-15] MEDS ORDERED: Insulin LISPRO* 1 UNITS UNIT SUBCUT SCH (16:30)
[2018-07-15] MEDS ORDERED: HYDROcodone/ACETAMIN 5-325 MG* 1 TAB PO ONE (16:51)
[2018-07-15] MEDS: Atorvastatin* 40 MG TAB PO SCH (17:09)
[2018-07-15] MEDS: Nystatin TOP POWDER* 15 GM BTL TOPICAL SCH (21:11)
[2018-07-15] MEDS: Docusate CAP* 100 MG PO SCH (21:12)
[2018-07-15] MEDS: Methocarbamol TAB* 500 MG PO PRN (21:13)
[2018-07-15] MEDS: Metoprolol Succinate XL TAB* 25 MG PO SCH (21:24)
--- NOTE | 2018-07-15 21:34 | HP ---
ADMISSION HISTORY AND PHYSICAL: DATE OF ADMISSION: 07/15/18. REASON FOR ADMISSION: Left ankle fracture. HISTORY OF PRESENT ILLNESS: Taylor Randhawa is a 72-year-old female. She has medical history significant for diabetes mellitus as well as coronary artery disease. She has had multiple stents placed in the past. She also has a history of congestive heart failure. She has a history of COPD as well and developed thyroid cancer and had a thyroidectomy and now has hypothyroidism. She also had back surgery with Dr. Diez in April of this year. The patient was going to the doctor's office on 07/09/18. While she was walking out to her van, she fell and injured her left foot. She states she could not get up and put weight on her left ankle. Her longtime boyfriend called 911 and the patient was brought to the emergency room. She had x-rays taken of her left ankle and it showed a bimalleolar fracture. She was admitted to the hospital. She was seen by Dr. Collins. She underwent a left bimalleolar open reduction and internal fixation with a left distal tibiofibular syndesmosis ORIF as well. Postoperatively, the patient was put on heparin for DVT prophylaxis and made nonweightbearing. She has had a lot of difficulty maintaining her nonweightbearing status. She has felt to have physical therapy and occupational therapy needs to refill. She is now being admitted for inpatient rehab, so that she might return to independent living. PAST MEDICAL HISTORY: Significant for the aforementioned coronary artery disease. She has had multiple stents in the past. She has a history of hypertension, hyperlipidemia, and diabetes mellitus. She now uses an insulin pump. She has a history of thyroid cancer and has had hypothyroidism since surgery for that. She had a pacemaker placed in 2017. She has a history of congestive heart failure, depression, morbid obesity, COPD, and diabetic peripheral neuropathy. MEDICATIONS: Current medications include: 1. Norvasc. 2. Aspirin. 3. Lipitor. 4. Wellbutrin. 5. Plavix. 6. Lasix. 7. Neurontin. 8. Heparin for DVT prophylaxis. 9. Imdur. 10. Synthroid. 11. Magnesium. 12. Toprol-XL. 13. Tramadol. ALLERGIES: Include MORPHINE, which caused hives and PENICILLIN. She also had difficulty with DARVOCET. SOCIAL HISTORY: She is a nonsmoker, nondrinker. She lives with her in a Ranch-style house. There are 3 steps to enter. REVIEW OF SYSTEMS: The patient reports no current shortness of breath or chest pain. PHYSICAL EXAMINATION VITAL SIGNS: The patient's temperature is 97.9, blood pressure is 122/34, pulse is 65, respirations 22. HEENT: Her extraocular movements are intact. Tongue is midline. NECK: Supple. LUNGS: Lung sounds are clear to auscultation bilaterally. HEART: Heart sounds are regular. S1, S2 are audible. ABDOMEN: Soft and nontender. EXTREMITIES: Her left ankle is in a splint. She can wiggle her toes on her left foot. Peripheral pulses are intact. NEUROLOGIC: She is awake, alert, oriented. Muscle strength is about 5/5. She may have some diminished sensation in her right foot. Her functional exam, her transfers are dependent. ASSESSMENT: Left ankle fracture, now nonweightbearing in a patient with diabetic peripheral neuropathy, diabetes, and coronary artery disease. PLAN/RECOMMENDATIONS: Integrate her into a comprehensive and therapeutic rehab program on the following goals: 1. Physical Therapy will work with the patient. They are going to work on functional transfer training, ambulation training with a walker. 2. Occupational Therapy will see the patient, work on her activities of daily living including toileting and toilet transfers. 3. Heparin for DVT prophylaxis. 4. Adequate analgesia. We are going to try hydrocodone half a tab every 4 hours and see if she is able to tolerate that. She got very confused with oxycodone upstairs. 5. For her coronary artery disease and her stents, we are going to continue her on aspirin, Plavix, Lasix, Toprol-XL, Imdur, and Norvasc. 6. Continue gabapentin for diabetic peripheral neuropathy. 7. Continue Synthroid for hypothyroidism. 8. We will try her on Robaxin for her muscle spasms in her left hamstring muscle. 9. branch services manager will be closely involved to make sure that any services and equipment the patient requires are in place prior to discharge. 10. Continue Wellbutrin for depression. 11. Exam directives: The patient is a full code. 12. Home with appropriate services. ESTIMATED LENGTH OF STAY: 10 to 14 days. [id number]/[facility] #: [id number] [facility] [facility]AMPUSD
[2018-07-16] MEDS: Acetaminophen TAB* 325 MG PO PRN ×2 (00:18→08:29)
[2018-07-16 04:56] LABS: ABS Basophils 0 10^3/ul (0-0.2); ABS Eosinophils 0.1 10^3/ul (0-0.6); ABS Lymphocytes 2.4 10^3/ul (1.0-4.8); ABS Monocytes 0.7 10^3/ul (0-0.8); ABS Neutrophils 3.1 10^3/ul (1.5-7.7); ABS Nucleated RBC 0 10^3/ul; Eosinophil % 2.1 % (0-6); Hematocrit 32 % (35-47); Hemoglobin 11.1 g/dl (12.0-16.0); Lymphocyte % 37.2 % (25-47); Mean Corpuscular HGB Conc 34 g/dl (31-36); Mean Corpuscular Hemoglobin 33 pg (27-31); Mean Corpuscular Volume 96 fL (80-97); Mean Platelet Volume 7.5 um3 (7.4-10.4); Nucleated Red Blood Cells % 0.1; Platelet Count 296 10^3/ul (150-450); Red Blood Count 3.38 10^6/ul (4.00-5.40); Red Cell Distribution Width 15 % (10.5-15); White Blood Count 6.3 10^3/ul (3.5-10.8)
[2018-07-16] MEDS: Heparin VIAL(*) 5000 UNITS/ML VIAL (FIVE THOUSAND) SUBCUT SCH ×3 (06:09→21:11)
[2018-07-16] MEDS: Levothyroxine TAB* 100 MCG TAB PO SCH (06:11)
[2018-07-16] MEDS: traMADol TAB* 50 MG PO PRN ×2 (06:23→12:45)
[2018-07-16] MEDS: Methocarbamol TAB* 500 MG PO PRN ×2 (06:36→12:46)
[2018-07-16] MEDS: Magnesium Chloride EC TAB* 64 MG PO SCH (08:26)
[2018-07-16] MEDS: Clopidogrel TAB* 75 MG PO SCH (08:27)
[2018-07-16] MEDS: Docusate CAP* 100 MG PO SCH ×2 (08:27→21:06)
[2018-07-16] MEDS: Isosorbide Mononitrate ER TAB* 60 MG PO SCH (08:27)
[2018-07-16] MEDS: amLODIPine TAB* 5 MG PO SCH (08:27)
[2018-07-16] MEDS: Metoprolol Succinate XL TAB* 25 MG PO SCH ×2 (08:27→21:07)
[2018-07-16] MEDS: Aspirin EC TAB* 81 MG TAB.EC PO SCH (08:28)
[2018-07-16] MEDS: BuPROPion XL* 300 MG TAB.XL PO SCH (08:28)
[2018-07-16] MEDS: Gabapentin CAP(*) 300 MG PO SCH ×3 (08:28→21:07)
[2018-07-16] MEDS: Nystatin TOP POWDER* 15 GM BTL TOPICAL SCH ×2 (08:29→21:09)
[2018-07-16] MEDS: HYDROcodone/ACETAMIN 5-325 MG* 1 TAB PO PRN ×2 (08:34→21:07)
[2018-07-16] MEDS: Magnesium Hydroxide LIQ* 30 ML UDC PO PRN (08:34)
[2018-07-16] MEDS: Furosemide TAB* 40 MG PO SCH (09:20)
[2018-07-16] MEDS: Atorvastatin* 40 MG TAB PO SCH (17:11)
[2018-07-16] MEDS: Baclofen TAB* 10 MG PO PRN (17:12)
[2018-07-16] MEDS: Senna TAB PO PRN (21:06)
--- NOTE | 2018-07-16 23:06 | PN ---
Progress Note Date of Service: 07/16/18 Note: MARY SWAIN was visited. Therapy notes read and reviewed. She has done a little better mobilizing. She is taking a whole [place] without difficulty. She mobilized a little better today. She is still saying she is in 10/10 pain Current Medications: Active Medications Generic Name Dose Route Start Last Admin Trade Name Freq PRN Reason Stop Dose Admin Acetaminophen 650 mg 07/15/18 13:33 07/16/18 00:18 Tylenol Tab* PO 650 mg Q6H PRN Administration FEVER/PAIN Hydrocodone Bitart/Acetaminophen 0.5 tab 07/15/18 14:18 [place] 5-325 Tab* PO Q4H PRN PAIN - MODERATE TO SEVERE Hydrocodone Bitart/Acetaminophen 1 tab 07/15/18 16:49 07/16/18 21:07 [place] 5-325 Tab* PO 1 tab Q4H PRN Administration PAIN - SEVERE Amlodipine Besylate 5 mg 07/16/18 09:00 07/16/18 08:27 Norvasc Tab* PO 5 mg DAILY JB Administration Aspirin 81 mg 07/16/18 09:00 07/16/18 08:28 Aspirin Ec Tab* PO 81 mg DAILY JB Administration Atorvastatin Calcium 40 mg 07/15/18 17:00 07/16/18 17:11 Lipitor* PO 40 mg 1700 JB Administration Baclofen 5 mg 07/16/18 16:08 07/16/18 17:12 Lioresal Tab* PO 5 mg TID PRN Administration SPASMS Bisacodyl 10 mg 07/15/18 13:33 Dulcolax Supp* CT DAILY PRN CONSTIPATION Bupropion HCl 300 mg 07/16/18 09:00 07/16/18 08:28 Bupropion Xl* PO 300 mg DAILY JB Administration Clopidogrel Bisulfate 75 mg 07/16/18 09:00 07/16/18 08:27 Plavix Tab* PO 75 mg DAILY JB Administration Dextrose 12.5 gm 07/15/18 13:44 D50w Syringe 50 Ml* IV PUSH .FOR FS < 60 - SS PRN FS < 60 Docusate Sodium 100 mg 07/15/18 21:00 07/16/18 21:06 Colace Cap* PO 100 mg BID JB Administration Furosemide 40 mg 07/16/18 09:00 09/05/18 09:20 Lasix Tab* PO 40 mg DAILY JB Administration Gabapentin 600 mg 07/15/18 14:00 07/16/18 21:07 Neurontin Cap(*) PO 600 mg TID JB Administration Heparin Sodium (Porcine) 5,000 units 07/15/18 14:00 07/16/18 21:11 Heparin Vial(*) SUBCUT 5,000 units Q8HR JB Administration Isosorbide Mononitrate 60 mg 07/16/18 09:00 07/16/18 08:27 Imdur Er Tab* PO 60 mg DAILY JB Administration Levothyroxine Sodium 200 mcg 07/16/18 06:00 07/16/18 06:11 Synthroid Tab* PO 200 mcg DAILY@0600 JB Administration Magnesium Chloride 64 mg 07/16/18 09:00 07/16/18 08:26 Slow Mag Ec Tab* PO 64 mg DAILY JB Administration Magnesium Hydroxide 30 ml 07/15/18 13:33 07/16/18 08:34 Milk Of Magnesia Liq* PO 30 ml Q6H PRN Administration CONSTIPATION Metoprolol Succinate 25 mg 07/15/18 21:00 07/16/18 21:07 Toprol Xl Tab* PO 25 mg BID JB Administration Nystatin 1 applic 07/15/18 21:00 07/16/18 21:09 Nystatin Top Powder* TOPICAL 1 applic BID JB Administration Senna 2 tab 07/15/18 13:33 07/16/18 21:06 Senokot Tab* PO 2 tab BEDTIME PRN Administration CONSTIPATION Tramadol HCl 50 mg 07/15/18 13:43 07/16/18 12:45 Ultram* PO 50 mg Q6H PRN Administration PAIN - MODERATE Vital Signs: Vital Signs Temp Pulse Resp BP Pulse Ox 97.3 F 63 18 125/38 100 07/16/18 15:41 07/16/18 15:41 07/16/18 21:07 07/16/18 15:41 07/16/18 15:41 Lab Results: Laboratory Results - last 24 hr 07/16/18 07/16/18 07/16/18 04:39 04:39 07:38 WBC 6.3 RBC 3.38 L Hgb 11.1 L Hct 32 L MCV 96 MCH 33 H MCHC 34 RDW 15 Plt Count 296 MPV 7.5 Neut % (Auto) 48.3 Lymph % (Auto) 37.2 Hand % (Auto) 11.6 H Eos % (Auto) 2.1 Baso % (Auto) 0.8 Absolute Neuts (auto) 3.1 Absolute Lymphs (auto) 2.4 Absolute Monos (auto) 0.7 Absolute Eos (auto) 0.1 Absolute Basos (auto) 0 Absolute Nucleated RBC 0 Nucleated RBC % 0.1 Sodium 137 Potassium 3.6 Chloride 98 L Carbon Dioxide 30 Anion Gap 9 BUN 11 Creatinine 0.67 Est GFR ( Amer) 104.1 Est GFR (Non-Af Amer) 86.0 BUN/Creatinine Ratio 16.4 Glucose 178 H POC Glucose (mg/dL) 212 H Calcium 9.2 Total Bilirubin 0.50 AST 12 L ALT 11 Alkaline Phosphatase 57 Total Protein 6.6 Albumin 3.3 Globulin 3.3 Albumin/Globulin Ratio 1.0 07/16/18 07/16/18 07/16/18 12:03 16:34 20:01 WBC RBC Hgb Hct MCV MCH MCHC RDW Plt Count MPV Neut % (Auto) Lymph % (Auto) Hand % (Auto) Eos % (Auto) Baso % (Auto) Absolute Neuts (auto) Absolute Lymphs (auto) Absolute Monos (auto) Absolute Eos (auto) Absolute Basos (auto) Absolute Nucleated RBC Nucleated RBC % Sodium Potassium Chloride Carbon Dioxide Anion Gap BUN Creatinine Est GFR ( Amer) Est GFR (Non-Af Amer) BUN/Creatinine Ratio Glucose POC Glucose (mg/dL) 188 H 164 H 168 H Calcium Total Bilirubin AST ALT Alkaline Phosphatase Total Protein Albumin Globulin Albumin/Globulin Ratio Exam: GENERAL: In no distress. Alert and oriented LUNGS: clear bilat HEART: reg rhythm ABDOMEN: Soft, +BS EXTREMITIES: Left ankle in splint NEUROLOGIC: alert and oriented. Motor exam non focal Assessment/Plan: 1. Left bimalleolar ankle fracture: NWB left leg. PT/OT 2. CAD, S/P stents: ASA/Plavix/Imdur/Lasix/Toprol 3. Diabetes: insulin pump 4. DPN: Gabapentin 5. DVT Prophylaxis: Heparin S/Q 6. Advanced Directives: Full code 7. Hypothyroidism: Synthroid 8. Depression: Wellbutrin XL 9. CHF: stable on Lasix 07/16/18 23:17 07/16/18 23:20
[2018-07-17] MEDS: Levothyroxine TAB* 100 MCG TAB PO SCH (05:31)
[2018-07-17] MEDS: Heparin VIAL(*) 5000 UNITS/ML VIAL (FIVE THOUSAND) SUBCUT SCH ×3 (05:32→22:15)
[2018-07-17] MEDS: Baclofen TAB* 10 MG PO PRN ×3 (05:40→22:24)
[2018-07-17] MEDS: traMADol TAB* 50 MG PO PRN ×2 (06:56→13:25)
[2018-07-17] MEDS: BuPROPion XL* 300 MG TAB.XL PO SCH (08:19)
[2018-07-17] MEDS: Aspirin EC TAB* 81 MG TAB.EC PO SCH (08:19)
[2018-07-17] MEDS: Clopidogrel TAB* 75 MG PO SCH (08:19)
[2018-07-17] MEDS: Docusate CAP* 100 MG PO SCH ×2 (08:19→22:15)
[2018-07-17] MEDS: amLODIPine TAB* 5 MG PO SCH (08:19)
[2018-07-17] MEDS: Furosemide TAB* 40 MG PO SCH (08:20)
[2018-07-17] MEDS: Gabapentin CAP(*) 300 MG PO SCH ×3 (08:20→22:13)
[2018-07-17] MEDS: Metoprolol Succinate XL TAB* 25 MG PO SCH ×2 (08:21→22:14)
[2018-07-17] MEDS: Isosorbide Mononitrate ER TAB* 60 MG PO SCH (08:21)
[2018-07-17] MEDS: HYDROcodone/ACETAMIN 5-325 MG* 1 TAB PO PRN (08:22)
[2018-07-17] MEDS: Magnesium Chloride EC TAB* 64 MG PO SCH (08:22)
[2018-07-17] MEDS: Acetaminophen TAB* 325 MG PO PRN (09:20)
[2018-07-17] MEDS: Nystatin TOP POWDER* 15 GM BTL TOPICAL SCH ×2 (09:28→22:17)
[2018-07-17] MEDS ORDERED: HYDROcodone/ACETAMIN 5-325 MG* 1 TAB PO PRN (13:34)
--- NOTE | 2018-07-17 15:45 | PN ---
Progress Note Date of Service: 07/17/18 Note: MARY SWAIN was visited. Therapy notes read and reviewed. She is still saying she is in extreme pain although does not appear distressed in any way. She is tolerating [place] without confusion. WIll increase to 2 tabs every 4 hours as needed Current Medications: Active Medications Generic Name Dose Route Start Last Admin Trade Name Freq PRN Reason Stop Dose Admin Acetaminophen 650 mg 07/15/18 13:33 07/17/18 09:20 Tylenol Tab* PO 650 mg Q6H PRN Administration FEVER/PAIN Hydrocodone Bitart/Acetaminophen 2 tab 07/17/18 13:33 [place] 5-325 Tab* PO Q4H PRN PAIN - SEVERE Hydrocodone Bitart/Acetaminophen 1 tab 07/17/18 13:34 [place] 5-325 Tab* PO Q4H PRN PAIN - MODERATE TO SEVERE Amlodipine Besylate 5 mg 07/16/18 09:00 07/17/18 08:19 Norvasc Tab* PO 5 mg DAILY JB Administration Aspirin 81 mg 07/16/18 09:00 07/17/18 08:19 Aspirin Ec Tab* PO 81 mg DAILY JB Administration Atorvastatin Calcium 40 mg 07/15/18 17:00 07/16/18 17:11 Lipitor* PO 40 mg 1700 JB Administration Baclofen 5 mg 07/16/18 16:08 07/17/18 14:31 Lioresal Tab* PO 5 mg TID PRN Administration SPASMS Bisacodyl 10 mg 07/15/18 13:33 Dulcolax Supp* [place] DAILY PRN CONSTIPATION Bupropion HCl 300 mg 07/16/18 09:00 07/17/18 08:19 Bupropion Xl* PO 300 mg DAILY JB Administration Clopidogrel Bisulfate 75 mg 07/16/18 09:00 07/17/18 08:19 Plavix Tab* PO 75 mg DAILY JB Administration Dextrose 12.5 gm 07/15/18 13:44 D50w Syringe 50 Ml* IV PUSH .FOR FS < 60 - SS PRN FS < 60 Docusate Sodium 100 mg 07/15/18 21:00 07/17/18 08:19 Colace Cap* PO 100 mg BID JB Administration Furosemide 40 mg 07/16/18 09:00 07/17/18 08:20 Lasix Tab* PO 40 mg DAILY JB Administration Gabapentin 600 mg 07/15/18 14:00 07/17/18 13:25 Neurontin Cap(*) PO 600 mg TID JB Administration Heparin Sodium (Porcine) 5,000 units 07/15/18 14:00 07/17/18 14:31 Heparin Vial(*) SUBCUT 5,000 units Q8HR JB Administration Isosorbide Mononitrate 60 mg 07/16/18 09:00 07/17/18 08:21 Imdur Er Tab* PO 60 mg DAILY JB Administration Levothyroxine Sodium 200 mcg 07/16/18 06:00 07/17/18 05:31 Synthroid Tab* PO 200 mcg DAILY@0600 JB Administration Magnesium Chloride 64 mg 07/16/18 09:00 07/17/18 08:22 Slow Mag Ec Tab* PO 64 mg DAILY JB Administration Magnesium Hydroxide 30 ml 07/15/18 13:33 07/16/18 08:34 Milk Of Magnesia Liq* PO 30 ml Q6H PRN Administration CONSTIPATION Metoprolol Succinate 25 mg 07/15/18 21:00 07/17/18 08:21 Toprol Xl Tab* PO 25 mg BID JB Administration Nystatin 1 applic 07/15/18 21:00 07/17/18 09:28 Nystatin Top Powder* TOPICAL 1 applic BID JB Administration Senna 2 tab 07/15/18 13:33 07/16/18 21:06 Senokot Tab* PO 2 tab BEDTIME PRN Administration CONSTIPATION Tramadol HCl 50 mg 07/15/18 13:43 07/17/18 13:25 Ultram* PO 50 mg Q6H PRN Administration PAIN - MODERATE Vital Signs: Vital Signs Temp Pulse Resp BP Pulse Ox 98.2 F 63 16 118/60 99 07/17/18 05:39 07/17/18 05:39 07/17/18 13:31 07/17/18 05:39 07/17/18 05:39 Lab Results: Laboratory Results - last 24 hr 07/16/18 07/16/18 07/17/18 16:34 20:01 07:48 POC Glucose (mg/dL) 164 H 168 H 160 H Exam: GENERAL: In no distress. Alert and oriented LUNGS: clear bilat HEART: reg rhythm ABDOMEN: Soft, +BS EXTREMITIES: Left ankle in splint. Toes pink. NEUROLOGIC: alert and oriented. Motor exam non focal. Can wiggle toes on left foot Assessment/Plan: 1. Left bimalleolar ankle fracture: NWB left leg. PT/OT 2. CAD, S/P stents: ASA/Plavix/Imdur/Lasix/Toprol 3. Diabetes: insulin pump 4. DPN: Gabapentin 5. DVT Prophylaxis: Heparin S/Q 6. Advanced Directives: Full code 7. Hypothyroidism: Synthroid 8. Depression: Wellbutrin XL 9. CHF: stable on Lasix 10. Analgesia: [place] 1-2 tabs Q4 PRN 07/17/18 15:46
[2018-07-17] MEDS: Atorvastatin* 40 MG TAB PO SCH (17:00)
[2018-07-18] MEDS: Heparin VIAL(*) 5000 UNITS/ML VIAL (FIVE THOUSAND) SUBCUT SCH ×3 (06:21→21:16)
[2018-07-18] MEDS: Levothyroxine TAB* 100 MCG TAB PO SCH (06:22)
[2018-07-18] MEDS: Baclofen TAB* 10 MG PO PRN ×2 (06:22→20:21)
[2018-07-18] MEDS: HYDROcodone/ACETAMIN 5-325 MG* 1 TAB PO PRN ×3 (06:59→16:23)
[2018-07-18] MEDS: amLODIPine TAB* 5 MG PO SCH (09:59)
[2018-07-18] MEDS: BuPROPion XL* 300 MG TAB.XL PO SCH (09:59)
[2018-07-18] MEDS: Clopidogrel TAB* 75 MG PO SCH (09:59)
[2018-07-18] MEDS: Aspirin EC TAB* 81 MG TAB.EC PO SCH (09:59)
[2018-07-18] MEDS: Furosemide TAB* 40 MG PO SCH (09:59)
[2018-07-18] MEDS: Gabapentin CAP(*) 300 MG PO SCH ×3 (10:00→20:13)
[2018-07-18] MEDS: Nystatin TOP POWDER* 15 GM BTL TOPICAL SCH ×2 (10:00→20:30)
[2018-07-18] MEDS: Magnesium Chloride EC TAB* 64 MG PO SCH (10:00)
[2018-07-18] MEDS: Isosorbide Mononitrate ER TAB* 60 MG PO SCH (10:00)
[2018-07-18] MEDS: Metoprolol Succinate XL TAB* 25 MG PO SCH ×2 (10:00→20:20)
[2018-07-18] MEDS: Docusate CAP* 100 MG PO SCH ×2 (10:04→20:14)
--- NOTE | 2018-07-18 12:48 | PMRUTEAM ---
PMRU: Team Meeting Current Status: Nursing: Current Status Skin Deviations [Under L Rash breast] Skin Deviations [Abdomen] Previous Access Point Skin Deviations [L lower leg] Incision Skin Deviations [L knee] Abrasion Skin Deviation Description [ nystatin to be applied after am care Under L breast] Skin Deviation Description [ insulin pump Abdomen] Skin Deviation Description [L lazaro wrap in place lower leg] Skin Deviation Description [L scab healing well. open to air knee] Physical Therapy: Current Status Bed Mobility Assistance Supervision Transfer Moblility Assistance Contact Guard Assist Transfer/Bed Mobility Rolling Walker Recommended Devices Ambulation Assistance Contact Guard Assist Ambulation Assistive Devices Rolling Walker Number of Feet Patient 5' and 8' Ambulated Stairs Assistance Not Tested Stairs Recommended Devices One Rail Number of Stairs 3 Curb Not Tested Manual Wheelchair Control/ Bilateral UE's Technique Wheelchair Propulsion Ability Standby Assistance Wheelchair Distance (ft) 140' Occupational Therapy: Current Status Upper Body Dressing Min Assist Lower Body Dressing Total Assist Bathing Min Assist Toileting Max Asst Toilet Transfer Contact Guard Assist,Min Assist,2 Person Assist Eating Supervision Rec Therapy: Current Status Summary of Assessment and Pt. was open to conversation - engaged and Clinical Impression cooperative throughout. Pt. identified with interests and involvement in them prior to admission. Pt. was open to continued leisure visits. Pt. received pet therapy after our meeting. Treatment Goals Pt. will engage in leisure activities while on the unit. Treatment Plan Provide RT services and encourage involvement. Social Work: Current Status Discharge Plan return home with home care svs and family support Potential for Family Training pt's partner is attentive and involved. Anticipated Discharge Home Destination Discharge With home care svs and family support Goals: Physical Therapy: Initial Goals Bed Mobility Assistance Independent Transfer Mobility Assistance Independent Transfer/Bed Mobility Rolling Walker Recommended Devices Ambulation Independent Ambulation Recommended Devices Rolling Walker Ambulation Distance 50 Wheelchair Propulsion Ability Independent Wheelchair Distance (ft) 150 Stairs Assistance Independent Stair Recommended Devices Two Rails Number of Stairs 3 Physical Therapy: Updated Goals Transfer/Bed Mobility Rosmery Lift Recommended Devices Occupational Therapy: Initial Goals Goals to be Completed in (Days 14-21 days ) Upper Body Bathing Routine Independent Lower Body Bathing Routine Modified Independent with Upper Body Dressing Routine Independent Lower Body Dressing Routine Modified Independent with Toilet Hygeine and Clothing Modified Independent with Management Routine Toilet Transfer Routine Modified Independent with Tub Transfer Routine Modified Independent with Functional Transfers for ADL Modified Independent with Grooming Routine Modified Independent with Feeding Routine Modified Independent with Feeding Assistive Devices dentures Social Work: Goals Discharge Plan return home with home care svs and family support Potential for Family Training pt's partner is attentive and involved. Anticipated Discharge Home Destination Discharge With home care svs and family support Care Plan: Care Plan ADL's - Improve/Maintain Start: 07/16/18 00:00 Freq: DAILY Status: Active Target: Protocol: Activity Type Activity Date Activity User E-Sign Co-Sign Detail Recorded Client Recorded Date Recorded By Document 07/18/18 11:17 [id number] [id number] 07/18/18 11:18 [id number] 07/18/18 11:17 PMRU Outcome: ADL's/ADL Transfers Orders/Interventions Occupational Therapy Evaluation & Treatment Communication Tool in Patient Room Device Yes Address Deficits Secondary To: left ankle ORIF Patient to receive OT 5x/wk for 60-120 Therex min/day Self Care Management Group Therapy UE/LE ADL's with Assist Yes: Brandy ADL Transfers with Assist Yes: Brandy Toileting: Transfers,Clothing Management Yes: Brandy ,Hygeine w/Assist Light Kitchen/Laundry w/Assist No Progression Toward Outcome/Goals Progressing Outcome/Goals Met Pt participated well in ADL treatment session, able to complete SPT bed to recliner chair with Silviano x 2 this date during ADL routine. Cardiovascular- Improve/Maintain Start: 07/16/18 00:00 Freq: QSHIFT Status: Active Target: Protocol: Activity Type Activity Date Activity User E-Sign Co-Sign Detail Recorded Client Recorded Date Recorded By Document 07/18/18 01:14 [id number] 07/18/18 01:15 [id number] 07/18/18 01:14 PMRU Outcome: Cardiovascular Vital Signs q Shift for 48hrs Then BID Yes Daily Weight Ordered No Current Cardiovascular Outcome/Goal Maintain/ Achieve Baseline HR, BP , Perfusion Free of Abnormal Cardiac Symptoms Progression Toward Outcome/Goal Progressing Discharge Planning - Improve/Maintain Start: 07/16/18 00:00 Freq: DAILY Status: Active Target: Protocol: Activity Type Activity Date Activity User E-Sign Co-Sign Detail Recorded Client Recorded Date Recorded By Document 07/18/18 01:14 [id number] 07/18/18 01:15 [id number] 07/18/18 01:14 PMRU Outcome: Discharge Planning Update Patient Family No Outcome/Goals Demonstrates Understanding of Discharge Plan Progression Toward Outcome/Goals Progressing Education-Improve/Maintain Start: 07/16/18 00:00 Freq: QSHIFT Status: Active Target: Protocol: Activity Type Activity Date Activity User E-Sign Co-Sign Detail Recorded Client Recorded Date Recorded By Document 07/18/18 01:14 [id number] [id number] 07/18/18 01:15 [id number] 07/18/18 01:14 PMRU Outcome: Education Outcome/Goals Demonstrate/ Verbalize Understanding of Written Discharge Instructions Demonstrates Skills Encourage Questions Progression Toward Outcome/Goals Progressing /GI-Improve/Maintain Start: 07/16/18 00:00 Freq: QSHIFT Status: Active Target: Protocol: Activity Type Activity Date Activity User E-Sign Co-Sign Detail Recorded Client Recorded Date Recorded By Document 07/18/18 01:14 [id number] [email or web address] 07/18/18 01:15 [id number] 07/18/18 01:14 PMRU Outcome: Genitourinary/ Gastrointestinal Genitourinary- Outcome/Goals Maintain/ Achieve Urinary Continence Gastrointestinal-Outcome/Goals Maintain/ Achieve Bowel Regularity in Accordance with Pt's Baseline Prevent Constipation Progression Toward Outcome/Goals - Progressing Progression Toward Outcome/Goals - GI Progressing Medication Administration Start: 07/16/18 00:00 Freq: QSHIFT Status: Active Target: Protocol: Activity Type Activity Date Activity User E-Sign Co-Sign Detail Recorded Client Recorded Date Recorded By Document 07/18/18 01:14 [id number] [email or web address] 07/18/18 01:15 [id number] 07/18/18 01:14 PMRU Outcome: Medication Administration Assess Patient Knowledge/Teach Med Yes Education for all Meds Outcome/Goals Patient Independent with Medication Administration at Home Demonstrates Understanding Progression Towards Outcome/Goals Progressing Is Patient Going Home on Lovenox? No Metabolic Status- Improve/Maintain Start: 07/16/18 00:00 Freq: QSHIFT Status: Active Target: Protocol: Activity Type Activity Date Activity User E-Sign Co-Sign Detail Recorded Client Recorded Date Recorded By Document 07/18/18 01:14 [id number] 07/18/18 01:15 [id number] 07/18/18 01:14 PMRU Outcome: Metabolic Status Have Fingersticks Been Ordered Yes Fingerstick Order Frequency AC & HS Outcome/Goals Demonstrate Knowledge of Prevention/ Treatment of Metabolic Imbalances Progression Toward Outcome/Goals Progressing Mobility- Improve/Maintain Start: 07/15/18 17:11 Freq: DAILY Status: Active Target: Protocol: Activity Type Activity Date Activity User E-Sign Co-Sign Detail Recorded Client Recorded Date Recorded By Document 07/15/18 17:11 [id number] 07/15/18 17:12 [id number] 07/15/18 17:11 PMRU Outcome: Mobility Physical Therapy Evaluation and Yes Treatment Activity OOB with Assistance Yes WBAT Yes: LLE Device Yes Assistance Yes Patient to be seen 5x/wk for 60-120 min/ Therex day for: Mobility Training Gait Training W/C Mobility Balance Outcome/Goals Maintain/ Achieve Baseline Mobility Status Improve Mobility Status Demonstrates Proper Use of Assistive Devices Free from Complications of Immobility Bed Mobility Yes: independent Transfers Yes: independent with rolling walker. Gait x ft Yes: independent 50' with RW. W/C Mobility x ft Yes: independnet 150 ' Up/Down Stairs Yes: independet up/down 3 stairs with B rails. Neurological- Improve/Maintain Start: 07/16/18 00:00 Freq: QSHIFT Status: Active Target: Protocol: Activity Type Activity Date Activity User E-Sign Co-Sign Detail Recorded Client Recorded Date Recorded By Document 07/18/18 01:14 [id number] 07/18/18 01:15 [id number] 07/18/18 01:14 PMRU Outcome: Neurological Weakness/Aphasia Weakness Left Side Weakness/Aphasia Comment NWB to LLE Outcome/Goals Maintain/ Achieve Baseline Neurological Status Maintain/ Improve Strength/ROM Progression Toward Outcome/Goals Progressing Pain/Comfort- Improve/Maintain Start: 07/16/18 00:00 Freq: QSHIFT Status: Active Target: Protocol: Activity Type Activity Date Activity User E-Sign Co-Sign Detail Recorded Client Recorded Date Recorded By Document 07/18/18 01:14 [id number] 07/18/18 01:15 [id number] 07/18/18 01:14 PMRU Outcome: Pain/Comfort Outcome/Goals Demonstrates Knowledge and Use of Available Comfort Measures Maintain Comfort Level Allowing Patient to Fully Participate in Rehab Progression Toward Outcome/Goals Progressing Outcome/Goals Met Comment pt resting at this time Safety- Improve/Maintain Start: 07/16/18 00:00 Freq: QSHIFT Status: Active Target: Protocol: Activity Type Activity Date Activity User E-Sign Co-Sign Detail Recorded Client Recorded Date Recorded By Document 07/18/18 01:14 [id number] 07/18/18 01:15 [id number] 07/18/18 01:14 PMRU Outcome: Safety Outcome/Goals Remain Free of Injury or Harm Prevent Falls/ Injury Progression Toward Outcome/Goals Progressing Outcome/Goals Met Comment Pt medium risk Medicine Note: Length of Stay: 7 days Anticipated Discharge Destination: Home Tentative Discharge Date: 07/25/18 Discharged to: home
[2018-07-18] MEDS: Atorvastatin* 40 MG TAB PO SCH (16:23)
[2018-07-18] MEDS: traMADol TAB* 50 MG PO PRN (20:20)
--- NOTE | 2018-07-18 21:35 | PN ---
Progress Note Date of Service: 07/18/18 Note: MARY SWAIN was visited. Therapy notes read and reviewed. The patient was discussed in interdisciplinary plan of care rounds. Her pain is better controlled on 2 [place]. She seems to be moving better Current Medications: Active Medications Generic Name Dose Route Start Last Admin Trade Name Freq PRN Reason Stop Dose Admin Acetaminophen 650 mg 07/15/18 13:33 07/17/18 09:20 Tylenol Tab* PO 650 mg Q6H PRN Administration FEVER/PAIN Hydrocodone Bitart/Acetaminophen 2 tab 07/17/18 13:33 07/18/18 16:23 [place] 5-325 Tab* PO 2 tab Q4H PRN Administration PAIN - SEVERE Hydrocodone Bitart/Acetaminophen 1 tab 07/17/18 13:34 07/17/18 22:24 [place] 5-325 Tab* PO 1 tab Q4H PRN Administration PAIN - MODERATE TO SEVERE Amlodipine Besylate 5 mg 07/16/18 09:00 07/18/18 09:59 Norvasc Tab* PO 5 mg DAILY JB Administration Aspirin 81 mg 07/16/18 09:00 07/18/18 09:59 Aspirin Ec Tab* PO 81 mg DAILY JB Administration Atorvastatin Calcium 40 mg 07/15/18 17:00 07/18/18 16:23 Lipitor* PO 40 mg 1700 JB Administration Baclofen 5 mg 07/16/18 16:08 07/18/18 20:21 Lioresal Tab* PO 5 mg TID PRN Administration SPASMS Bisacodyl 10 mg 07/15/18 13:33 Dulcolax Supp* ME DAILY PRN CONSTIPATION Bupropion HCl 300 mg 07/16/18 09:00 07/18/18 09:59 Bupropion Xl* PO 300 mg DAILY JB Administration Clopidogrel Bisulfate 75 mg 07/16/18 09:00 07/18/18 09:59 Plavix Tab* PO 75 mg DAILY JB Administration Dextrose 12.5 gm 07/15/18 13:44 D50w Syringe 50 Ml* IV PUSH .FOR FS < 60 - SS PRN FS < 60 Docusate Sodium 100 mg 07/15/18 21:00 07/18/18 20:14 Colace Cap* PO 100 mg BID JB Administration Furosemide 40 mg 07/16/18 09:00 07/18/18 09:59 Lasix Tab* PO 40 mg DAILY JB Administration Gabapentin 600 mg 07/15/18 14:00 07/18/18 20:13 Neurontin Cap(*) PO 600 mg TID JB Administration Heparin Sodium (Porcine) 5,000 units 07/15/18 14:00 07/18/18 21:16 Heparin Vial(*) SUBCUT 5,000 units Q8HR JB Administration Isosorbide Mononitrate 60 mg 07/16/18 09:00 07/18/18 10:00 Imdur Er Tab* PO 60 mg DAILY JB Administration Levothyroxine Sodium 200 mcg 07/16/18 06:00 07/18/18 06:22 Synthroid Tab* PO 200 mcg DAILY@0600 JB Administration Magnesium Chloride 64 mg 07/16/18 09:00 07/18/18 10:00 Slow Mag Ec Tab* PO 64 mg DAILY JB Administration Magnesium Hydroxide 30 ml 07/15/18 13:33 07/16/18 08:34 Milk Of Magnesia Liq* PO 30 ml Q6H PRN Administration CONSTIPATION Metoprolol Succinate 25 mg 07/15/18 21:00 07/18/18 20:20 Toprol Xl Tab* PO 25 mg BID JB Administration Nystatin 1 applic 07/15/18 21:00 07/18/18 20:30 Nystatin Top Powder* TOPICAL Not Given BID JB Senna 2 tab 07/15/18 13:33 07/16/18 21:06 Senokot Tab* PO 2 tab BEDTIME PRN Administration CONSTIPATION Tramadol HCl 50 mg 07/15/18 13:43 07/18/18 20:20 Ultram* PO 50 mg Q6H PRN Administration PAIN - MODERATE Vital Signs: Vital Signs Temp Pulse Resp BP Pulse Ox 97.5 F 58 18 101/74 96 07/18/18 15:50 07/18/18 15:50 07/18/18 20:20 07/18/18 15:50 07/18/18 17:27 Lab Results: Laboratory Results - last 24 hr 07/17/18 07/18/18 07/18/18 22:11 07:48 11:52 POC Glucose (mg/dL) 196 H 183 H 164 H 07/18/18 07/18/18 16:25 20:48 POC Glucose (mg/dL) 176 H 137 H Exam: GENERAL: In no distress. Alert and oriented LUNGS: clear bilat HEART: reg rhythm ABDOMEN: Soft, +BS EXTREMITIES: Left ankle in splint. Toes pink. NEUROLOGIC: alert and oriented. Motor exam non focal. Can wiggle toes on left foot Assessment/Plan: 1. Left bimalleolar ankle fracture: NWB left leg. PT/OT 2. CAD, S/P stents: ASA/Plavix/Imdur/Lasix/Toprol 3. Diabetes: insulin pump 4. DPN: Gabapentin 5. DVT Prophylaxis: Heparin S/Q 6. Advanced Directives: Full code 7. Hypothyroidism: Synthroid 8. Depression: Wellbutrin XL 9. CHF: stable on Lasix 10. Analgesia: [place] 1-2 tabs Q4 PRN 07/18/18 21:36
[2018-07-19] MEDS: Heparin VIAL(*) 5000 UNITS/ML VIAL (FIVE THOUSAND) SUBCUT SCH ×3 (06:16→21:25)
[2018-07-19] MEDS: Levothyroxine TAB* 100 MCG TAB PO SCH (06:16)
[2018-07-19] MEDS: traMADol TAB* 50 MG PO PRN (06:44)
[2018-07-19] MEDS: HYDROcodone/ACETAMIN 5-325 MG* 1 TAB PO PRN ×3 (08:16→20:11)
[2018-07-19] MEDS: Gabapentin CAP(*) 300 MG PO SCH ×3 (09:16→20:12)
[2018-07-19] MEDS: Isosorbide Mononitrate ER TAB* 60 MG PO SCH (09:16)
[2018-07-19] MEDS: amLODIPine TAB* 5 MG PO SCH (09:17)
[2018-07-19] MEDS: BuPROPion XL* 300 MG TAB.XL PO SCH (09:17)
[2018-07-19] MEDS: Magnesium Chloride EC TAB* 64 MG PO SCH (09:17)
[2018-07-19] MEDS: Metoprolol Succinate XL TAB* 25 MG PO SCH ×2 (09:17→20:13)
[2018-07-19] MEDS: Clopidogrel TAB* 75 MG PO SCH (09:17)
[2018-07-19] MEDS: Aspirin EC TAB* 81 MG TAB.EC PO SCH (09:17)
[2018-07-19] MEDS: Docusate CAP* 100 MG PO SCH ×2 (09:17→20:13)
[2018-07-19] MEDS: Furosemide TAB* 40 MG PO SCH (09:17)
[2018-07-19] MEDS: Nystatin TOP POWDER* 15 GM BTL TOPICAL SCH ×2 (10:38→20:11)
[2018-07-19] MEDS: Magnesium Hydroxide LIQ* 30 ML UDC PO PRN (10:39)
[2018-07-19] MEDS: Senna TAB PO PRN (16:39)
[2018-07-19] MEDS: Atorvastatin* 40 MG TAB PO SCH (16:39)
--- NOTE | 2018-07-19 20:09 | PN ---
Progress Note Date of Service: 07/19/18 Note: MARY SWAIN was visited. Therapy notes read and reviewed. She feels ok as far as her pain is concerned. No complaints otherwise. Wants Miralax Current Medications: Active Medications Generic Name Dose Route Start Last Admin Trade Name Freq PRN Reason Stop Dose Admin Acetaminophen 650 mg 07/15/18 13:33 07/17/18 09:20 Tylenol Tab* PO 650 mg Q6H PRN Administration FEVER/PAIN Hydrocodone Bitart/Acetaminophen 2 tab 07/17/18 13:33 07/19/18 12:23 [place] 5-325 Tab* PO 2 tab Q4H PRN Administration PAIN - SEVERE Hydrocodone Bitart/Acetaminophen 1 tab 07/17/18 13:34 07/17/18 22:24 [place] 5-325 Tab* PO 1 tab Q4H PRN Administration PAIN - MODERATE TO SEVERE Amlodipine Besylate 5 mg 07/16/18 09:00 07/19/18 09:17 Norvasc Tab* PO 5 mg DAILY JB Administration Aspirin 81 mg 07/16/18 09:00 07/19/18 09:17 Aspirin Ec Tab* PO 81 mg DAILY JB Administration Atorvastatin Calcium 40 mg 07/15/18 17:00 07/19/18 16:39 Lipitor* PO 40 mg 1700 JB Administration Baclofen 5 mg 07/16/18 16:08 07/18/18 20:21 Lioresal Tab* PO 5 mg TID PRN Administration SPASMS Bisacodyl 10 mg 07/15/18 13:33 Dulcolax Supp* AR DAILY PRN CONSTIPATION Bupropion HCl 300 mg 07/16/18 09:00 07/19/18 09:17 Bupropion Xl* PO 300 mg DAILY JB Administration Clopidogrel Bisulfate 75 mg 07/16/18 09:00 07/19/18 09:17 Plavix Tab* PO 75 mg DAILY JB Administration Dextrose 12.5 gm 07/15/18 13:44 D50w Syringe 50 Ml* IV PUSH .FOR FS < 60 - SS PRN FS < 60 Docusate Sodium 100 mg 07/15/18 21:00 07/19/18 09:17 Colace Cap* PO 100 mg BID JB Administration Furosemide 40 mg 07/16/18 09:00 07/19/18 09:17 Lasix Tab* PO 40 mg DAILY JB Administration Gabapentin 600 mg 07/15/18 14:00 07/19/18 14:04 Neurontin Cap(*) PO 600 mg TID JB Administration Heparin Sodium (Porcine) 5,000 units 07/15/18 14:00 07/19/18 14:04 Heparin Vial(*) SUBCUT 5,000 units Q8HR JB Administration Isosorbide Mononitrate 60 mg 07/16/18 09:00 07/19/18 09:16 Imdur Er Tab* PO 60 mg DAILY JB Administration Levothyroxine Sodium 200 mcg 07/16/18 06:00 07/19/18 06:16 Synthroid Tab* PO 200 mcg DAILY@0600 JB Administration Magnesium Chloride 64 mg 07/16/18 09:00 07/19/18 09:17 Slow Mag Ec Tab* PO 64 mg DAILY JB Administration Magnesium Hydroxide 30 ml 07/15/18 13:33 07/19/18 10:39 Milk Of Magnesia Liq* PO 30 ml Q6H PRN Administration CONSTIPATION Metoprolol Succinate 25 mg 07/15/18 21:00 07/19/18 09:17 Toprol Xl Tab* PO 25 mg BID JB Administration Nystatin 1 applic 07/15/18 21:00 07/19/18 10:38 Nystatin Top Powder* TOPICAL Not Given BID JB Senna 2 tab 07/15/18 13:33 07/19/18 16:39 Senokot Tab* PO 2 tab BEDTIME PRN Administration CONSTIPATION Tramadol HCl 50 mg 07/15/18 13:43 07/19/18 06:44 Ultram* PO 50 mg Q6H PRN Administration PAIN - MODERATE Vital Signs: Vital Signs Temp Pulse Resp BP Pulse Ox 97.6 F 60 18 116/43 98 07/19/18 15:50 07/19/18 20:00 07/19/18 20:00 07/19/18 20:00 07/19/18 16:50 Lab Results: Laboratory Results - last 24 hr 07/18/18 07/19/18 07/19/18 20:48 09:24 12:11 POC Glucose (mg/dL) 137 H 184 H 144 H 07/19/18 07/19/18 16:30 19:54 POC Glucose (mg/dL) 170 H 150 H Exam: GENERAL: In no distress. Alert and oriented LUNGS: clear bilat HEART: reg rhythm ABDOMEN: Soft, +BS EXTREMITIES: Left ankle in splint. Toes pink. NEUROLOGIC: alert and oriented. Motor exam non focal. Can wiggle toes on left foot Assessment/Plan: 1. Left bimalleolar ankle fracture: NWB left leg. PT/OT 2. CAD, S/P stents: ASA/Plavix/Imdur/Lasix/Toprol 3. Diabetes: insulin pump 4. DPN: Gabapentin 5. DVT Prophylaxis: Heparin S/Q 6. Advanced Directives: Full code 7. Hypothyroidism: Synthroid 8. Depression: Wellbutrin XL 9. CHF: stable on Lasix 10. Analgesia: [place] 1-2 tabs Q4 PRN 07/19/18 20:09
[2018-07-20] MEDS: HYDROcodone/ACETAMIN 5-325 MG* 1 TAB PO PRN (05:57)
[2018-07-20] MEDS: Levothyroxine TAB* 100 MCG TAB PO SCH (05:58)
[2018-07-20] MEDS: Heparin VIAL(*) 5000 UNITS/ML VIAL (FIVE THOUSAND) SUBCUT SCH ×3 (06:00→21:21)
--- NOTE | 2018-07-20 08:12 | PN ---
Progress Note Date of Service: 07/20/18 Note: MARY SWAIN was visited. Nursing notes read and reviewed. She is moving ok , and her pain is well controlled. She has some urinary frequency. Will check U/ A Current Medications: Active Medications Generic Name Dose Route Start Last Admin Trade Name Freq PRN Reason Stop Dose Admin Acetaminophen 650 mg 07/15/18 13:33 07/17/18 09:20 Tylenol Tab* PO 650 mg Q6H PRN Administration FEVER/PAIN Hydrocodone Bitart/Acetaminophen 2 tab 07/17/18 13:33 07/20/18 05:57 Holiday 5-325 Tab* PO 2 tab Q4H PRN Administration PAIN - SEVERE Hydrocodone Bitart/Acetaminophen 1 tab 07/17/18 13:34 07/17/18 22:24 Holiday 5-325 Tab* PO 1 tab Q4H PRN Administration PAIN - MODERATE TO SEVERE Amlodipine Besylate 5 mg 07/16/18 09:00 07/19/18 09:17 Norvasc Tab* PO 5 mg DAILY JB Administration Aspirin 81 mg 07/16/18 09:00 07/19/18 09:17 Aspirin Ec Tab* PO 81 mg DAILY JB Administration Atorvastatin Calcium 40 mg 07/15/18 17:00 07/19/18 16:39 Lipitor* PO 40 mg 1700 JB Administration Baclofen 5 mg 07/16/18 16:08 07/18/18 20:21 Lioresal Tab* PO 5 mg TID PRN Administration SPASMS Bisacodyl 10 mg 07/15/18 13:33 Dulcolax Supp* [place] DAILY PRN CONSTIPATION Bupropion HCl 300 mg 07/16/18 09:00 07/19/18 09:17 Bupropion Xl* PO 300 mg DAILY JB Administration Clopidogrel Bisulfate 75 mg 07/16/18 09:00 07/19/18 09:17 Plavix Tab* PO 75 mg DAILY JB Administration Dextrose 12.5 gm 07/15/18 13:44 D50w Syringe 50 Ml* IV PUSH .FOR FS < 60 - SS PRN FS < 60 Docusate Sodium 100 mg 07/15/18 21:00 07/19/18 20:13 Colace Cap* PO 100 mg BID JB Administration Furosemide 40 mg 07/16/18 09:00 07/19/18 09:17 Lasix Tab* PO 40 mg DAILY JB Administration Gabapentin 600 mg 07/15/18 14:00 07/19/18 20:12 Neurontin Cap(*) PO 600 mg TID JB Administration Heparin Sodium (Porcine) 5,000 units 07/15/18 14:00 07/20/18 06:00 Heparin Vial(*) SUBCUT 5,000 units Q8HR JB Administration Isosorbide Mononitrate 60 mg 07/16/18 09:00 07/19/18 09:16 Imdur Er Tab* PO 60 mg DAILY JB Administration Levothyroxine Sodium 200 mcg 07/16/18 06:00 07/20/18 05:58 Synthroid Tab* PO 200 mcg DAILY@0600 JB Administration Magnesium Chloride 64 mg 07/16/18 09:00 07/19/18 09:17 Slow Mag Ec Tab* PO 64 mg DAILY JB Administration Magnesium Hydroxide 30 ml 07/15/18 13:33 07/19/18 10:39 Milk Of Magnesia Liq* PO 30 ml Q6H PRN Administration CONSTIPATION Metoprolol Succinate 25 mg 07/15/18 21:00 07/19/18 20:13 Toprol Xl Tab* PO 25 mg BID JB Administration Nystatin 1 applic 07/15/18 21:00 07/19/18 20:11 Nystatin Top Powder* TOPICAL Not Given BID [facility] Polyethylene Glycol/Electrolytes 17 gm 07/19/18 22:30 Miralax* PO DAILY PRN CONSTIPATION Senna 2 tab 07/15/18 13:33 07/19/18 16:39 Senokot Tab* PO 2 tab BEDTIME PRN Administration CONSTIPATION Tramadol HCl 50 mg 07/15/18 13:43 07/19/18 06:44 Ultram* PO 50 mg Q6H PRN Administration PAIN - MODERATE Vital Signs: Vital Signs Temp Pulse Resp BP Pulse Ox 97.6 F 60 18 116/43 98 07/19/18 15:50 07/19/18 20:00 07/20/18 05:57 07/19/18 20:00 07/19/18 16:50 Lab Results: Laboratory Results - last 24 hr 07/19/18 07/19/18 07/19/18 09:24 12:11 16:30 POC Glucose (mg/dL) 184 H 144 H 170 H 07/19/18 19:54 POC Glucose (mg/dL) 150 H Exam: GENERAL: In no distress. Alert and oriented LUNGS: clear bilat HEART: reg rhythm ABDOMEN: Soft, +BS EXTREMITIES: Left ankle in splint. Toes pink. NEUROLOGIC: alert and oriented. Motor exam non focal. Can wiggle toes on left foot Assessment/Plan: 1. Left bimalleolar ankle fracture: NWB left leg. PT/OT 2. CAD, S/P stents: ASA/Plavix/Imdur/Lasix/Toprol 3. Diabetes: insulin pump 4. DPN: Gabapentin 5. DVT Prophylaxis: Heparin S/Q 6. Advanced Directives: Full code 7. Hypothyroidism: Synthroid 8. Depression: Wellbutrin XL 9. CHF: stable on Lasix 10. Analgesia: Holiday 1-2 tabs Q4 PRN 07/20/18 08:12
[2018-07-20] MEDS: Gabapentin CAP(*) 300 MG PO SCH ×3 (08:29→21:22)
[2018-07-20] MEDS: Furosemide TAB* 40 MG PO SCH (08:30)
[2018-07-20] MEDS: traMADol TAB* 50 MG PO PRN (08:30)
[2018-07-20] MEDS: Magnesium Hydroxide LIQ* 30 ML UDC PO PRN (08:30)
[2018-07-20] MEDS: Polyethylene Glycol 3350* 17 GM PACKET PO PRN (08:30)
[2018-07-20] MEDS: Baclofen TAB* 10 MG PO PRN ×2 (08:30→16:47)
[2018-07-20] MEDS: Docusate CAP* 100 MG PO SCH ×2 (08:30→21:22)
[2018-07-20] MEDS: Metoprolol Succinate XL TAB* 25 MG PO SCH ×2 (08:30→21:22)
[2018-07-20] MEDS: amLODIPine TAB* 5 MG PO SCH (08:31)
[2018-07-20] MEDS: Isosorbide Mononitrate ER TAB* 60 MG PO SCH (08:31)
[2018-07-20] MEDS: BuPROPion XL* 300 MG TAB.XL PO SCH (08:31)
[2018-07-20] MEDS: Aspirin EC TAB* 81 MG TAB.EC PO SCH (08:31)
[2018-07-20] MEDS: Magnesium Chloride EC TAB* 64 MG PO SCH (08:31)
[2018-07-20] MEDS: Clopidogrel TAB* 75 MG PO SCH (08:31)
[2018-07-20] MEDS: Nystatin TOP POWDER* 15 GM BTL TOPICAL SCH ×2 (08:49→21:23)
[2018-07-20 11:09] LABS: Urine Appearance Clear; Urine Blood Negative (Negative); Urine Color Yellow; Urine Ketones Negative (Negative); Urine Protein Negative (Negative); Urine Red Blood Cell Trace(0-2/hpf) (Absent); Urine Specific Gravity 1.012 (1.010-1.030); Urine Urobilinogen Negative (Negative); Urine White Blood Cell 1+(6-10/hpf) (Absent)
[2018-07-20] MEDS: Atorvastatin* 40 MG TAB PO SCH (16:41)
[2018-07-20] MEDS ORDERED: Ciprofloxacin TAB* 250 MG PO ONE (21:40)
[2018-07-21] MEDS: Heparin VIAL(*) 5000 UNITS/ML VIAL (FIVE THOUSAND) SUBCUT SCH ×3 (06:17→21:40)
[2018-07-21] MEDS: Levothyroxine TAB* 100 MCG TAB PO SCH (06:18)
[2018-07-21] MEDS: Docusate CAP* 100 MG PO SCH ×2 (07:42→20:07)
[2018-07-21] MEDS: amLODIPine TAB* 5 MG PO SCH (07:42)
[2018-07-21] MEDS: HYDROcodone/ACETAMIN 5-325 MG* 1 TAB PO PRN ×4 (07:42→21:38)
[2018-07-21] MEDS: Metoprolol Succinate XL TAB* 25 MG PO SCH ×2 (07:42→20:07)
[2018-07-21] MEDS: Isosorbide Mononitrate ER TAB* 60 MG PO SCH (07:42)
[2018-07-21] MEDS: Aspirin EC TAB* 81 MG TAB.EC PO SCH (07:42)
[2018-07-21] MEDS: Furosemide TAB* 40 MG PO SCH (07:42)
[2018-07-21] MEDS: Clopidogrel TAB* 75 MG PO SCH (07:42)
[2018-07-21] MEDS: BuPROPion XL* 300 MG TAB.XL PO SCH (07:43)
[2018-07-21] MEDS: Ciprofloxacin TAB* 250 MG PO SCH ×2 (07:43→20:07)
[2018-07-21] MEDS: Gabapentin CAP(*) 300 MG PO SCH ×3 (07:43→20:07)
[2018-07-21] MEDS: Magnesium Hydroxide LIQ* 30 ML UDC PO PRN (07:43)
[2018-07-21] MEDS: Nystatin TOP POWDER* 15 GM BTL TOPICAL SCH ×2 (08:52→20:08)
[2018-07-21] MEDS: Magnesium Chloride EC TAB* 64 MG PO SCH (11:45)
--- NOTE | 2018-07-21 16:56 | PN ---
Progress Note Date of Service: 07/21/18 Note: MARY SWAIN was visited. Therapy notes read and reviewed. Urine culture showed no growth. Will d/c Cipro. Pain better, mobilizing better Current Medications: Active Medications Generic Name Dose Route Start Last Admin Trade Name Freq PRN Reason Stop Dose Admin Acetaminophen 650 mg 07/15/18 13:33 07/17/18 09:20 Tylenol Tab* PO 650 mg Q6H PRN Administration FEVER/PAIN Hydrocodone Bitart/Acetaminophen 2 tab 07/17/18 13:33 07/21/18 11:47 Schaller 5-325 Tab* PO 2 tab Q4H PRN Administration PAIN - SEVERE Hydrocodone Bitart/Acetaminophen 1 tab 07/17/18 13:34 07/17/18 22:24 Schaller 5-325 Tab* PO 1 tab Q4H PRN Administration PAIN - MODERATE TO SEVERE Amlodipine Besylate 5 mg 07/16/18 09:00 07/21/18 07:42 Norvasc Tab* PO 5 mg DAILY JB Administration Aspirin 81 mg 07/16/18 09:00 07/21/18 07:42 Aspirin Ec Tab* PO 81 mg DAILY JB Administration Atorvastatin Calcium 40 mg 07/15/18 17:00 07/20/18 16:41 Lipitor* PO 40 mg 1700 JB Administration Baclofen 5 mg 07/16/18 16:08 07/20/18 16:47 Lioresal Tab* PO 5 mg TID PRN Administration SPASMS Bisacodyl 10 mg 07/15/18 13:33 Dulcolax Supp* CT DAILY PRN CONSTIPATION Bupropion HCl 300 mg 07/16/18 09:00 07/21/18 07:43 Bupropion Xl* PO 300 mg DAILY JB Administration Ciprofloxacin 250 mg 07/21/18 09:00 07/21/18 07:43 Cipro Tab* PO 250 mg Q12HR JB Administration Clopidogrel Bisulfate 75 mg 07/16/18 09:00 07/21/18 07:42 Plavix Tab* PO 75 mg DAILY JB Administration Dextrose 12.5 gm 07/15/18 13:44 D50w Syringe 50 Ml* IV PUSH .FOR FS < 60 - SS PRN FS < 60 Docusate Sodium 100 mg 07/15/18 21:00 07/21/18 07:42 Colace Cap* PO 100 mg BID JB Administration Furosemide 40 mg 07/16/18 09:00 07/21/18 07:42 Lasix Tab* PO 40 mg DAILY JB Administration Gabapentin 600 mg 07/15/18 14:00 07/21/18 14:16 Neurontin Cap(*) PO 600 mg TID JB Administration Heparin Sodium (Porcine) 5,000 units 07/15/18 14:00 07/21/18 14:18 Heparin Vial(*) SUBCUT 5,000 units Q8HR JB Administration Isosorbide Mononitrate 60 mg 07/16/18 09:00 07/21/18 07:42 Imdur Er Tab* PO 60 mg DAILY JB Administration Levothyroxine Sodium 200 mcg 07/16/18 06:00 07/21/18 06:18 Synthroid Tab* PO 200 mcg DAILY@0600 JB Administration Magnesium Chloride 64 mg 07/21/18 12:00 07/21/18 11:45 Slow Mag Ec Tab* PO 64 mg DAILY@1200 JB Administration Magnesium Hydroxide 30 ml 07/15/18 13:33 07/21/18 07:43 Milk Of Magnesia Liq* PO 30 ml Q6H PRN Administration CONSTIPATION Metoprolol Succinate 25 mg 07/15/18 21:00 07/21/18 07:42 Toprol Xl Tab* PO 25 mg BID JB Administration Nystatin 1 applic 07/15/18 21:00 07/21/18 08:52 Nystatin Top Powder* TOPICAL Not Given BID [facility] Polyethylene Glycol/Electrolytes 17 gm 07/19/18 22:30 07/20/18 08:30 Miralax* PO 17 gm DAILY PRN Administration CONSTIPATION Senna 2 tab 07/15/18 13:33 07/19/18 16:39 Senokot Tab* PO 2 tab BEDTIME PRN Administration CONSTIPATION Tramadol HCl 50 mg 07/15/18 13:43 07/20/18 08:30 Ultram* PO 50 mg Q6H PRN Administration PAIN - MODERATE Vital Signs: Vital Signs Temp Pulse Resp BP Pulse Ox 98.2 F 60 18 136/44 94 07/21/18 06:21 07/21/18 06:21 07/21/18 16:07 07/21/18 06:21 07/21/18 06:21 Lab Results: Laboratory Results - last 24 hr 07/20/18 07/20/18 07/21/18 16:41 21:26 07:34 POC Glucose (mg/dL) 110 H 123 H 183 H 07/21/18 07/21/18 11:30 16:39 POC Glucose (mg/dL) 327 H 107 H Exam: GENERAL: In no distress. Alert and oriented LUNGS: clear bilat HEART: reg rhythm ABDOMEN: Soft, +BS EXTREMITIES: Left ankle in splint. Toes pink. NEUROLOGIC: alert and oriented. Motor exam non focal. Can wiggle toes on left foot Assessment/Plan: 1. Left bimalleolar ankle fracture: NWB left leg. PT/OT 2. CAD, S/P stents: ASA/Plavix/Imdur/Lasix/Toprol 3. Diabetes: insulin pump 4. DPN: Gabapentin 5. DVT Prophylaxis: Heparin S/Q 6. Advanced Directives: Full code 7. Hypothyroidism: Synthroid 8. Depression: Wellbutrin XL 9. CHF: stable on Lasix 10. Analgesia: Schaller 1-2 tabs Q4 PRN 11. Urinary frequency: Urine culture negative. D/C cipro 07/21/18 16:56
[2018-07-21] MEDS: Atorvastatin* 40 MG TAB PO SCH (17:23)
[2018-07-21] MEDS: Baclofen TAB* 10 MG PO PRN (17:38)
[2018-07-21] MEDS: Senna TAB PO PRN (20:16)
[2018-07-22] MEDS: Levothyroxine TAB* 100 MCG TAB PO SCH (05:19)
[2018-07-22] MEDS: Heparin VIAL(*) 5000 UNITS/ML VIAL (FIVE THOUSAND) SUBCUT SCH ×3 (05:19→21:00)
[2018-07-22] MEDS: Clopidogrel TAB* 75 MG PO SCH (07:58)
[2018-07-22] MEDS: Gabapentin CAP(*) 300 MG PO SCH ×3 (07:58→20:18)
[2018-07-22] MEDS: amLODIPine TAB* 5 MG PO SCH (07:58)
[2018-07-22] MEDS: BuPROPion XL* 300 MG TAB.XL PO SCH (07:58)
[2018-07-22] MEDS: Aspirin EC TAB* 81 MG TAB.EC PO SCH (07:58)
[2018-07-22] MEDS: Docusate CAP* 100 MG PO SCH ×2 (07:58→20:19)
[2018-07-22] MEDS: Furosemide TAB* 40 MG PO SCH (07:58)
[2018-07-22] MEDS: Nystatin TOP POWDER* 15 GM BTL TOPICAL SCH ×2 (07:59→21:00)
[2018-07-22] MEDS: Isosorbide Mononitrate ER TAB* 60 MG PO SCH (07:59)
[2018-07-22] MEDS: Metoprolol Succinate XL TAB* 25 MG PO SCH ×2 (07:59→20:18)
[2018-07-22] MEDS: HYDROcodone/ACETAMIN 5-325 MG* 1 TAB PO PRN ×2 (08:00→18:18)
[2018-07-22] MEDS: Polyethylene Glycol 3350* 17 GM PACKET PO PRN (08:06)
[2018-07-22] MEDS: Baclofen TAB* 10 MG PO PRN ×2 (11:59→16:59)
--- NOTE | 2018-07-22 12:47 | PMRUTEAM ---
PMRU: Team Meeting Current Status: Nursing: Current Status Skin Deviations [Under L Rash breast] Skin Deviations [Abdomen] Other Skin Deviations [L lower leg] Incision Skin Deviations [L knee] Abrasion Skin Deviation Description [ nystatin to be applied after am care Under L breast] Skin Deviation Description [ insulin pump Abdomen] Skin Deviation Description [L splint intact lower leg] Skin Deviation Description [L scabbed knee] Bladder Current Status continent Bowel Current Status continent Nutrition Current Status 75% of most meals Medication Current Status Pills whole with water, needs frequent reminders about when to take medication and what they are for. Physical Therapy: Current Status Bed Mobility Assistance Supervision Transfer Moblility Assistance Contact Guard Assist,Min Assist Transfer/Bed Mobility Rolling Walker Recommended Devices Ambulation Assistance Contact Guard Assist Ambulation Assistive Devices Rolling Walker Number of Feet Patient 6 Ambulated Stairs Assistance Not Tested Stairs Recommended Devices One Rail Number of Stairs 3 Curb Not Tested Manual Wheelchair Control/ Bilateral UE's Technique Wheelchair Propulsion Ability Minimum Assistance Wheelchair Distance (ft) 150 Objective Comments min A for steering w/c due to tendency to veer to L Occupational Therapy: Current Status Upper Body Dressing Supervision Upper Body Dressing Progress setupA Lower Body Dressing Min Assist Bathing Supervision Bathing Progress seated with min v/c's to maintain NWB when washing RLE Toileting Min Assist Toilet Transfer Contact Guard Assist Shower Transfer Progress N/A Eating Independent Rec Therapy: Current Status Summary of Assessment and RT assessment complete and pt. is aware of RT Clinical Impression services. Pt. has been engaged in leisure sessions in the afternoons along with visits from her and pet therapy. Treatment Goals Pt. will engage in leisure activities while on the unit. Treatment Plan Provide RT services and encourage involvement. Social Work: Current Status Discharge Plan return home with home care svs and family support Potential for Family Training pt's is scheduled for family training on 07/23 @ 8am Anticipated Discharge Home Destination Discharge With home care svs and family support Goals: Physical Therapy: Initial Goals Bed Mobility Assistance Independent Transfer Mobility Assistance Independent Transfer/Bed Mobility Rolling Walker Recommended Devices Ambulation Independent Ambulation Recommended Devices Rolling Walker Ambulation Distance 50 Wheelchair Propulsion Ability Independent Wheelchair Distance (ft) 150 Stairs Assistance Independent Stair Recommended Devices Two Rails Number of Stairs 3 Physical Therapy: Updated Goals Transfer/Bed Mobility Rosmery Lift Recommended Devices Occupational Therapy: Initial Goals Goals to be Completed in (Days 10-14 ) Upper Body Bathing Routine Independent Lower Body Bathing Routine Modified Independent with Upper Body Dressing Routine Independent Lower Body Dressing Routine Modified Independent with Toilet Hygeine and Clothing Modified Independent with Management Routine Toilet Transfer Routine Modified Independent with Tub Transfer Routine Modified Independent with Functional Transfers for ADL Modified Independent with Grooming Routine Modified Independent with Feeding Routine Modified Independent with Feeding Assistive Devices dentures Nursing: Goals Bladder Goal continent, independent with toileting Bowel Goal independent with toileting Nutrition Goal 100% of most meals Medication Goal Pills whole with water, understanding of medications Social Work: Goals Discharge Plan return home with home care svs and family support Potential for Family Training pt's is scheduled for family training on 07/23 @ 8am Anticipated Discharge Home Destination Discharge With home care svs and family support Care Plan: Care Plan ADL's - Improve/Maintain Start: 07/16/18 00:00 Freq: DAILY Status: Active Target: Protocol: Activity Type Activity Date Activity User E-Sign Co-Sign Detail Recorded Client Recorded Date Recorded By Document 07/22/18 11:14 [id number] [id number] 07/22/18 11:14 [id number] 07/22/18 11:14 PMRU Outcome: ADL's/ADL Transfers Orders/Interventions Occupational Therapy Evaluation & Treatment Communication Tool in Patient Room Device Yes Address Deficits Secondary To: left ankle ORIF Patient to receive OT 5x/wk for 60-120 Therex min/day Self Care Management Group Therapy UE/LE ADL's with Assist Yes: Brandy ADL Transfers with Assist Yes: Brandy Toileting: Transfers,Clothing Management Yes: Brandy ,Hygeine w/Assist Light Kitchen/Laundry w/Assist No Progression Toward Outcome/Goals Progressing Outcome/Goals Met Pt participated well. present to observe ADL treatment session, reports he will be able to assist at d/c. Plan for family training next date. Cardiovascular- Improve/Maintain Start: 07/16/18 00:00 Freq: QSHIFT Status: Active Target: Protocol: Activity Type Activity Date Activity User E-Sign Co-Sign Detail Recorded Client Recorded Date Recorded By Document 07/22/18 01:04 [id number] [id number] 07/22/18 01:04 [id number] 07/22/18 01:04 PMRU Outcome: Cardiovascular Vital Signs q Shift for 48hrs Then BID Yes Daily Weight Ordered No Current Cardiovascular Outcome/Goal Maintain/ Achieve Baseline HR, BP , Perfusion Free of Abnormal Cardiac Symptoms Progression Toward Outcome/Goal Progressing Discharge Planning - Improve/Maintain Start: 07/16/18 00:00 Freq: DAILY Status: Active Target: Protocol: Activity Type Activity Date Activity User E-Sign Co-Sign Detail Recorded Client Recorded Date Recorded By Document 07/22/18 00:00 [id number] [id number] 07/22/18 01:03 07/22/18 00:00 PMRU Outcome: Discharge Planning Update Patient Family No Outcome/Goals Demonstrates Understanding of Discharge Plan Progression Toward Outcome/Goals Progressing Education-Improve/Maintain Start: 07/16/18 00:00 Freq: QSHIFT Status: Active Target: Protocol: Activity Type Activity Date Activity User E-Sign Co-Sign Detail Recorded Client Recorded Date Recorded By Document 07/22/18 01:04 [id number] [id number] 07/22/18 01:04 [id number] 07/22/18 01:04 PMRU Outcome: Education Outcome/Goals Demonstrates Skills Encourage Questions Progression Toward Outcome/Goals Progressing /GI-Improve/Maintain Start: 07/16/18 00:00 Freq: QSHIFT Status: Active Target: Protocol: Activity Type Activity Date Activity User E-Sign Co-Sign Detail Recorded Client Recorded Date Recorded By Document 07/22/18 01:04 [id number] [id number] 07/22/18 01:04 [id number] 07/22/18 01:04 PMRU Outcome: Genitourinary/ Gastrointestinal Genitourinary- Outcome/Goals Maintain/ Achieve Urinary Continence Remain Free of Hospital- Acquired UTI Other Gastrointestinal-Outcome/Goals Maintain/ Achieve Bowel Regularity in Accordance with Pt's Baseline Prevent Constipation Progression Toward Outcome/Goals - Progressing Progression Toward Outcome/Goals - GI Progressing Medication Administration Start: 07/16/18 00:00 Freq: QSHIFT Status: Active Target: Protocol: Activity Type Activity Date Activity User E-Sign Co-Sign Detail Recorded Client Recorded Date Recorded By Document 07/22/18 01:04 [id number] [id number] 07/22/18 01:04 [id number] 07/22/18 01:04 PMRU Outcome: Medication Administration Assess Patient Knowledge/Teach Med Yes Education for all Meds Outcome/Goals Patient Independent with Medication Administration at Home Demonstrates Understanding Progression Towards Outcome/Goals Progressing Is Patient Going Home on Lovenox? No Metabolic Status- Improve/Maintain Start: 07/16/18 00:00 Freq: QSHIFT Status: Active Target: Protocol: Activity Type Activity Date Activity User E-Sign Co-Sign Detail Recorded Client Recorded Date Recorded By Document 07/22/18 01:04 [id number] [id number] 07/22/18 01:04 07/22/18 01:04 PMRU Outcome: Metabolic Status Have Fingersticks Been Ordered Yes Fingerstick Order Frequency AC & HS Outcome/Goals Maintain/ Improve Metabolic Status Demonstrate Knowledge of Prevention/ Treatment of Metabolic Imbalances Progression Toward Outcome/Goals Progressing Mobility- Improve/Maintain Start: 07/15/18 17:11 Freq: DAILY Status: Active Target: Protocol: Activity Type Activity Date Activity User E-Sign Co-Sign Detail Recorded Client Recorded Date Recorded By Document 07/15/18 17:11 [id number] [email or web address] 07/15/18 17:12 [id number] 07/15/18 17:11 PMRU Outcome: Mobility Physical Therapy Evaluation and Yes Treatment Activity OOB with Assistance Yes WBAT Yes: LLE Device Yes Assistance Yes Patient to be seen 5x/wk for 60-120 min/ Therex day for: Mobility Training Gait Training W/C Mobility Balance Outcome/Goals Maintain/ Achieve Baseline Mobility Status Improve Mobility Status Demonstrates Proper Use of Assistive Devices Free from Complications of Immobility Bed Mobility Yes: independent Transfers Yes: independent with rolling walker. Gait x ft Yes: independent 50' with RW. W/C Mobility x ft Yes: independnet 150 ' Up/Down Stairs Yes: independet up/down 3 stairs with B rails. Neurological- Improve/Maintain Start: 07/16/18 00:00 Freq: QSHIFT Status: Active Target: Protocol: Activity Type Activity Date Activity User E-Sign Co-Sign Detail Recorded Client Recorded Date Recorded By Document 07/22/18 01:04 [id number] [id number] 07/22/18 01:04 07/22/18 01:04 PMRU Outcome: Neurological Weakness/Aphasia Weakness Left Side Weakness/Aphasia Comment NWB to LLE Outcome/Goals Maintain/ Achieve Baseline Neurological Status Maintain/ Improve Strength/ROM Progression Toward Outcome/Goals Progressing Pain/Comfort- Improve/Maintain Start: 07/16/18 00:00 Freq: QSHIFT Status: Active Target: Protocol: Activity Type Activity Date Activity User E-Sign Co-Sign Detail Recorded Client Recorded Date Recorded By Document 07/22/18 01:04 [id number] [email or web address] 07/22/18 01:04 [id number] 07/22/18 01:04 PMRU Outcome: Pain/Comfort Outcome/Goals Demonstrates Knowledge and Use of Available Comfort Measures Achieves Acceptable Comfort/Pain Level as Determined by Patient/Condit Maintain Comfort Level Allowing Patient to Fully Participate in Rehab Progression Toward Outcome/Goals Progressing Safety- Improve/Maintain Start: 07/16/18 00:00 Freq: QSHIFT Status: Active Target: Protocol: Activity Type Activity Date Activity User E-Sign Co-Sign Detail Recorded Client Recorded Date Recorded By Document 07/22/18 01:04 [id number] [email or web address] 07/22/18 01:04 [id number] 07/22/18 01:04 PMRU Outcome: Safety Outcome/Goals Remain Free of Injury or Harm Prevent Falls/ Injury Progression Toward Outcome/Goals Progressing Medicine Note: Length of Stay: 2 days Anticipated Discharge Destination: Home Tentative Discharge Date: 06/23/18 Discharged to: Home
[2018-07-22] MEDS: Acetaminophen TAB* 325 MG PO PRN (12:53)
[2018-07-22] MEDS: Magnesium Chloride EC TAB* 64 MG PO SCH (13:14)
--- NOTE | 2018-07-22 16:18 | PN ---
Progress Note Date of Service: 07/22/18 Note: MARY SWAIN was visited. Therapy notes read and reviewed. She was discussed in interdisciplinary team rounds. She is moving better. Getting ready for discharge. They would like to do an x-ray prior to d/c. She was on Metformin and Januvia at home Current Medications: Active Medications Generic Name Dose Route Start Last Admin Trade Name Freq PRN Reason Stop Dose Admin Acetaminophen 650 mg 07/15/18 13:33 07/22/18 12:53 Tylenol Tab* PO 650 mg Q6H PRN Administration FEVER/PAIN Hydrocodone Bitart/Acetaminophen 2 tab 07/17/18 13:33 07/22/18 08:00 Jackson 5-325 Tab* PO 2 tab Q4H PRN Administration PAIN - SEVERE Hydrocodone Bitart/Acetaminophen 1 tab 07/17/18 13:34 07/17/18 22:24 Jackson 5-325 Tab* PO 1 tab Q4H PRN Administration PAIN - MODERATE TO SEVERE Amlodipine Besylate 5 mg 07/16/18 09:00 07/22/18 07:58 Norvasc Tab* PO 5 mg DAILY JB Administration Aspirin 81 mg 07/16/18 09:00 07/22/18 07:58 Aspirin Ec Tab* PO 81 mg DAILY JB Administration Atorvastatin Calcium 40 mg 07/15/18 17:00 07/21/18 17:23 Lipitor* PO 40 mg 1700 JB Administration Baclofen 5 mg 07/16/18 16:08 07/22/18 11:59 Lioresal Tab* PO 5 mg TID PRN Administration SPASMS Bisacodyl 10 mg 07/15/18 13:33 Dulcolax Supp* [place] DAILY PRN CONSTIPATION Bupropion HCl 300 mg 07/16/18 09:00 07/22/18 07:58 Bupropion Xl* PO 300 mg DAILY JB Administration Clopidogrel Bisulfate 75 mg 07/16/18 09:00 07/22/18 07:58 Plavix Tab* PO 75 mg DAILY JB Administration Dextrose 12.5 gm 07/15/18 13:44 D50w Syringe 50 Ml* IV PUSH .FOR FS < 60 - SS PRN FS < 60 Docusate Sodium 100 mg 07/15/18 21:00 07/22/18 07:58 Colace Cap* PO 100 mg BID JB Administration Furosemide 40 mg 07/16/18 09:00 07/22/18 07:58 Lasix Tab* PO 40 mg DAILY JB Administration Gabapentin 600 mg 07/15/18 14:00 07/22/18 14:08 Neurontin Cap(*) PO 600 mg TID JB Administration Heparin Sodium (Porcine) 5,000 units 07/15/18 14:00 07/22/18 14:10 Heparin Vial(*) SUBCUT 5,000 units Q8HR JB Administration Isosorbide Mononitrate 60 mg 07/16/18 09:00 07/22/18 07:59 Imdur Er Tab* PO 60 mg DAILY JB Administration Levothyroxine Sodium 200 mcg 07/16/18 06:00 07/22/18 05:19 Synthroid Tab* PO 200 mcg DAILY@0600 JB Administration Magnesium Chloride 64 mg 07/21/18 12:00 07/22/18 13:14 Slow Mag Ec Tab* PO 64 mg DAILY@1200 JB Administration Magnesium Hydroxide 30 ml 07/15/18 13:33 07/21/18 07:43 Milk Of Magnesia Liq* PO 30 ml Q6H PRN Administration CONSTIPATION Metoprolol Succinate 25 mg 07/15/18 21:00 07/22/18 07:59 Toprol Xl Tab* PO 25 mg BID JB Administration Nystatin 1 applic 07/15/18 21:00 07/22/18 07:59 Nystatin Top Powder* TOPICAL 1 applic BID JB Administration Polyethylene Glycol/Electrolytes 17 gm 07/19/18 22:30 07/22/18 08:06 Miralax* PO 17 gm DAILY PRN Administration CONSTIPATION Senna 2 tab 07/15/18 13:33 07/21/18 20:16 Senokot Tab* PO 2 tab BEDTIME PRN Administration CONSTIPATION Vital Signs: Vital Signs Temp Pulse Resp BP Pulse Ox 97.4 F 61 18 138/48 96 07/22/18 15:29 07/22/18 15:29 07/22/18 15:29 07/22/18 15:29 07/22/18 15:29 Lab Results: Laboratory Results - last 24 hr 07/21/18 07/21/18 16:39 20:10 POC Glucose (mg/dL) 107 H 180 H Exam: GENERAL: In no distress. Alert and oriented LUNGS: clear bilat HEART: reg rhythm ABDOMEN: Soft, +BS EXTREMITIES: Left ankle in splint. Toes pink. NEUROLOGIC: alert and oriented. Motor exam non focal. Can wiggle toes on left foot Assessment/Plan: 1. Left bimalleolar ankle fracture: NWB left leg. PT/OT 2. CAD, S/P stents: ASA/Plavix/Imdur/Lasix/Toprol 3. Diabetes: insulin pump. Will resume Metformin 4. DPN: Gabapentin 5. DVT Prophylaxis: Heparin S/Q 6. Advanced Directives: Full code 7. Hypothyroidism: Synthroid 8. Depression: Wellbutrin XL 9. CHF: stable on Lasix 10. Analgesia: Jackson 1-2 tabs Q4 PRN 07/22/18 16:18
[2018-07-22] MEDS: metFORMIN* 500 MG TAB PO SCH (16:58)
[2018-07-22] MEDS: Atorvastatin* 40 MG TAB PO SCH (16:58)
[2018-07-22] MEDS: Senna TAB PO PRN (20:19)
[2018-07-23 05:32] LABS: ABS Basophils 0.1 10^3/ul (0-0.2); ABS Eosinophils 0.2 10^3/ul (0-0.6); ABS Lymphocytes 2.3 10^3/ul (1.0-4.8); ABS Monocytes 0.5 10^3/ul (0-0.8); ABS Neutrophils 3.1 10^3/ul (1.5-7.7); ABS Nucleated RBC 0 10^3/ul; Eosinophil % 2.8 % (0-6); Hematocrit 34 % (35-47); Hemoglobin 11.4 g/dl (12.0-16.0); Lymphocyte % 37.5 % (25-47); Mean Corpuscular HGB Conc 34 g/dl (31-36); Mean Corpuscular Hemoglobin 33 pg (27-31); Mean Corpuscular Volume 97 fL (80-97); Mean Platelet Volume 7.2 um3 (7.4-10.4); Nucleated Red Blood Cells % 0; Platelet Count 440 10^3/ul (150-450); Red Blood Count 3.52 10^6/ul (4.00-5.40); Red Cell Distribution Width 15 % (10.5-15); White Blood Count 6.2 10^3/ul (3.5-10.8)
[2018-07-23] MEDS: Levothyroxine TAB* 100 MCG TAB PO SCH (05:39)
[2018-07-23] MEDS: Heparin VIAL(*) 5000 UNITS/ML VIAL (FIVE THOUSAND) SUBCUT SCH ×3 (05:39→20:59)
[2018-07-23 05:55] LABS: EGFR Non-African American 68.1 (>60)
[2018-07-23] MEDS: Docusate CAP* 100 MG PO SCH ×2 (08:05→20:17)
[2018-07-23] MEDS: Furosemide TAB* 40 MG PO SCH (08:05)
[2018-07-23] MEDS: amLODIPine TAB* 5 MG PO SCH (08:05)
[2018-07-23] MEDS: Clopidogrel TAB* 75 MG PO SCH (08:05)
[2018-07-23] MEDS: Aspirin EC TAB* 81 MG TAB.EC PO SCH (08:05)
[2018-07-23] MEDS: Gabapentin CAP(*) 300 MG PO SCH ×3 (08:05→20:17)
[2018-07-23] MEDS: metFORMIN* 500 MG TAB PO SCH ×2 (08:05→17:10)
[2018-07-23] MEDS: BuPROPion XL* 300 MG TAB.XL PO SCH (08:05)
[2018-07-23] MEDS: Nystatin TOP POWDER* 15 GM BTL TOPICAL SCH ×3 (08:06→20:06)
[2018-07-23] MEDS: HYDROcodone/ACETAMIN 5-325 MG* 1 TAB PO PRN ×3 (08:06→20:57)
[2018-07-23] MEDS: Isosorbide Mononitrate ER TAB* 60 MG PO SCH (08:06)
[2018-07-23] MEDS: Metoprolol Succinate XL TAB* 25 MG PO SCH ×2 (08:06→20:17)
[2018-07-23] MEDS: Magnesium Chloride EC TAB* 64 MG PO SCH (11:55)
[2018-07-23] MEDS: Atorvastatin* 40 MG TAB PO SCH (17:10)
--- NOTE | 2018-07-23 20:07 | PN ---
Progress Note Date of Service: 07/23/18 Note: MARY SWAIN was visited. Therapy notes read and reviewed. Pain is controlled. Blood sugars much better since metformin re-introduced. Will add Fidencio when she goes home Current Medications: Active Medications Generic Name Dose Route Start Last Admin Trade Name Freq PRN Reason Stop Dose Admin Acetaminophen 650 mg 07/15/18 13:33 07/22/18 12:53 Tylenol Tab* PO 650 mg Q6H PRN Administration FEVER/PAIN Hydrocodone Bitart/Acetaminophen 2 tab 07/17/18 13:33 07/23/18 11:50 [place] 5-325 Tab* PO 2 tab Q4H PRN Administration PAIN - SEVERE Hydrocodone Bitart/Acetaminophen 1 tab 07/17/18 13:34 07/17/18 22:24 [place] 5-325 Tab* PO 1 tab Q4H PRN Administration PAIN - MODERATE TO SEVERE Amlodipine Besylate 5 mg 07/16/18 09:00 07/23/18 08:05 Norvasc Tab* PO 5 mg DAILY JB Administration Aspirin 81 mg 07/16/18 09:00 07/23/18 08:05 Aspirin Ec Tab* PO 81 mg DAILY JB Administration Atorvastatin Calcium 40 mg 07/15/18 17:00 07/23/18 17:10 Lipitor* PO 40 mg 1700 JB Administration Baclofen 5 mg 07/16/18 16:08 07/22/18 16:59 Lioresal Tab* PO 5 mg TID PRN Administration SPASMS Bisacodyl 10 mg 07/15/18 13:33 Dulcolax Supp* [place] DAILY PRN CONSTIPATION Bupropion HCl 300 mg 07/16/18 09:00 07/23/18 08:05 Bupropion Xl* PO 300 mg DAILY JB Administration Clopidogrel Bisulfate 75 mg 07/16/18 09:00 07/23/18 08:05 Plavix Tab* PO 75 mg DAILY JB Administration Dextrose 12.5 gm 07/15/18 13:44 D50w Syringe 50 Ml* IV PUSH .FOR FS < 60 - SS PRN FS < 60 Docusate Sodium 100 mg 07/15/18 21:00 07/23/18 08:05 Colace Cap* PO 100 mg BID JB Administration Furosemide 40 mg 07/16/18 09:00 07/23/18 08:05 Lasix Tab* PO 40 mg DAILY JB Administration Gabapentin 600 mg 07/15/18 14:00 07/23/18 13:35 Neurontin Cap(*) PO 600 mg TID JB Administration Heparin Sodium (Porcine) 5,000 units 07/15/18 14:00 07/23/18 14:08 Heparin Vial(*) SUBCUT 5,000 units Q8HR JB Administration Isosorbide Mononitrate 60 mg 07/16/18 09:00 07/23/18 08:06 Imdur Er Tab* PO 60 mg DAILY JB Administration Levothyroxine Sodium 200 mcg 07/16/18 06:00 07/23/18 05:39 Synthroid Tab* PO 200 mcg DAILY@0600 JB Administration Magnesium Chloride 64 mg 07/21/18 12:00 07/23/18 11:55 Slow Mag Ec Tab* PO 64 mg DAILY@1200 JB Administration Magnesium Hydroxide 30 ml 07/15/18 13:33 07/21/18 07:43 Milk Of Magnesia Liq* PO 30 ml Q6H PRN Administration CONSTIPATION Metformin HCl 500 mg 07/22/18 17:00 07/23/18 17:10 Glucophage* PO 500 mg 0800,1700 JB Administration Metoprolol Succinate 25 mg 07/15/18 21:00 07/23/18 08:06 Toprol Xl Tab* PO 25 mg BID JB Administration Nystatin 1 applic 07/15/18 21:00 07/23/18 08:13 Nystatin Top Powder* TOPICAL Not Given BID [facility] Polyethylene Glycol/Electrolytes 17 gm 07/19/18 22:30 07/22/18 08:06 Miralax* PO 17 gm DAILY PRN Administration CONSTIPATION Senna 2 tab 07/15/18 13:33 07/22/18 20:19 Senokot Tab* PO 2 tab BEDTIME PRN Administration CONSTIPATION Vital Signs: Vital Signs Temp Pulse Resp BP Pulse Ox 97.9 F 61 18 120/39 98 07/23/18 15:12 07/23/18 15:12 07/23/18 17:59 07/23/18 15:12 07/23/18 17:59 Lab Results: Laboratory Results - last 24 hr 07/22/18 07/23/18 07/23/18 20:22 05:24 05:24 WBC 6.2 RBC 3.52 L Hgb 11.4 L Hct 34 L MCV 97 MCH 33 H MCHC 34 RDW 15 Plt Count 440 MPV 7.2 L Neut % (Auto) 50.2 Lymph % (Auto) 37.5 [place] % (Auto) 8.4 H Eos % (Auto) 2.8 Baso % (Auto) 1.1 Absolute Neuts (auto) 3.1 Absolute Lymphs (auto) 2.3 Absolute Monos (auto) 0.5 Absolute Eos (auto) 0.2 Absolute Basos (auto) 0.1 Absolute Nucleated RBC 0 Nucleated RBC % 0 Sodium 133 L Potassium 4.2 Chloride 100 L Carbon Dioxide 26 Anion Gap 7 BUN 12 Creatinine 0.82 Est GFR ( Amer) 82.5 Est GFR (Non-Af Amer) 68.1 BUN/Creatinine Ratio 14.6 Glucose 153 H POC Glucose (mg/dL) 213 H Calcium 9.3 Total Bilirubin 0.40 AST 15 ALT 15 Alkaline Phosphatase 69 Total Protein 7.1 Albumin 3.4 Globulin 3.7 Albumin/Globulin Ratio 0.9 L 07/23/18 07/23/18 07/23/18 07:23 12:00 16:25 WBC RBC Hgb Hct MCV MCH MCHC RDW Plt Count MPV Neut % (Auto) Lymph % (Auto) [place] % (Auto) Eos % (Auto) Baso % (Auto) Absolute Neuts (auto) Absolute Lymphs (auto) Absolute Monos (auto) Absolute Eos (auto) Absolute Basos (auto) Absolute Nucleated RBC Nucleated RBC % Sodium Potassium Chloride Carbon Dioxide Anion Gap BUN Creatinine Est GFR ( Amer) Est GFR (Non-Af Amer) BUN/Creatinine Ratio Glucose POC Glucose (mg/dL) 171 H 99 82 Calcium Total Bilirubin AST ALT Alkaline Phosphatase Total Protein Albumin Globulin Albumin/Globulin Ratio Exam: GENERAL: In no distress. Alert and oriented LUNGS: clear bilat HEART: reg rhythm ABDOMEN: Soft, +BS EXTREMITIES: Left ankle in splint. Toes pink. NEUROLOGIC: alert and oriented. Motor exam non focal. Can wiggle toes on left foot Assessment/Plan: 1. Left bimalleolar ankle fracture: NWB left leg. PT/OT 2. CAD, S/P stents: ASA/Plavix/Imdur/Lasix/Toprol 3. Diabetes: insulin pump/Metformin 4. DPN: Gabapentin 5. DVT Prophylaxis: Heparin S/Q 6. Advanced Directives: Full code 7. Hypothyroidism: Synthroid 8. Depression: Wellbutrin XL 9. CHF: stable on Lasix 10. Analgesia: [place] 1-2 tabs Q4 PRN 07/23/18 20:07
[2018-07-23] MEDS: Senna TAB PO PRN (20:17)
[2018-07-24] MEDS: Baclofen TAB* 10 MG PO PRN (06:35)
[2018-07-24] MEDS: Levothyroxine TAB* 100 MCG TAB PO SCH (06:35)
[2018-07-24] MEDS: Heparin VIAL(*) 5000 UNITS/ML VIAL (FIVE THOUSAND) SUBCUT SCH (06:36)
[2018-07-24 06:51] VITALS: BP 131/46
[2018-07-24] MEDS: Metoprolol Succinate XL TAB* 25 MG PO SCH (08:09)
[2018-07-24] MEDS: Aspirin EC TAB* 81 MG TAB.EC PO SCH (08:09)
[2018-07-24] MEDS: Isosorbide Mononitrate ER TAB* 60 MG PO SCH (08:10)
[2018-07-24] MEDS: BuPROPion XL* 300 MG TAB.XL PO SCH (08:10)
[2018-07-24] MEDS: Furosemide TAB* 40 MG PO SCH (08:10)
[2018-07-24] MEDS: metFORMIN* 500 MG TAB PO SCH (08:10)
[2018-07-24] MEDS: Docusate CAP* 100 MG PO SCH (08:10)
[2018-07-24] MEDS: amLODIPine TAB* 5 MG PO SCH (08:10)
[2018-07-24] MEDS: Clopidogrel TAB* 75 MG PO SCH (08:10)
[2018-07-24] MEDS: HYDROcodone/ACETAMIN 5-325 MG* 1 TAB PO PRN (08:12)
[2018-07-24] MEDS: Gabapentin CAP(*) 300 MG PO SCH (08:13)
[2018-07-24] MEDS: Nystatin TOP POWDER* 15 GM BTL TOPICAL SCH (08:15)
--- NOTE | 2018-07-24 10:02 | PN ---
Progress Note Date of Service: 07/24/18 Note: MARY SWAIN was visited. Therapy notes read and reviewed. She feels ready for discharge. Still needs steadying assistance for some ADLs while standing. Lucas understands this Current Medications: Active Medications Generic Name Dose Route Start Last Admin Trade Name Freq PRN Reason Stop Dose Admin Acetaminophen 650 mg 07/15/18 13:33 07/22/18 12:53 Tylenol Tab* PO 650 mg Q6H PRN Administration FEVER/PAIN Hydrocodone Bitart/Acetaminophen 2 tab 07/17/18 13:33 07/24/18 08:12 [place] 5-325 Tab* PO 2 tab Q4H PRN Administration PAIN - SEVERE Hydrocodone Bitart/Acetaminophen 1 tab 07/17/18 13:34 07/17/18 22:24 [place] 5-325 Tab* PO 1 tab Q4H PRN Administration PAIN - MODERATE TO SEVERE Amlodipine Besylate 5 mg 07/16/18 09:00 07/24/18 08:10 Norvasc Tab* PO 5 mg DAILY JB Administration Aspirin 81 mg 07/16/18 09:00 07/24/18 08:09 Aspirin Ec Tab* PO 81 mg DAILY JB Administration Atorvastatin Calcium 40 mg 07/15/18 17:00 07/23/18 17:10 Lipitor* PO 40 mg 1700 JB Administration Baclofen 5 mg 07/16/18 16:08 07/24/18 06:35 Lioresal Tab* PO 5 mg TID PRN Administration SPASMS Bisacodyl 10 mg 07/15/18 13:33 Dulcolax Supp* [place] DAILY PRN CONSTIPATION Bupropion HCl 300 mg 07/16/18 09:00 07/24/18 08:10 Bupropion Xl* PO 300 mg DAILY JB Administration Clopidogrel Bisulfate 75 mg 07/16/18 09:00 07/24/18 08:10 Plavix Tab* PO 75 mg DAILY JB Administration Dextrose 12.5 gm 07/15/18 13:44 D50w Syringe 50 Ml* IV PUSH .FOR FS < 60 - SS PRN FS < 60 Docusate Sodium 100 mg 07/15/18 21:00 07/24/18 08:10 Colace Cap* PO 100 mg BID JB Administration Furosemide 40 mg 07/16/18 09:00 07/24/18 08:10 Lasix Tab* PO 40 mg DAILY JB Administration Gabapentin 600 mg 07/15/18 14:00 07/24/18 08:13 Neurontin Cap(*) PO 600 mg TID JB Administration Heparin Sodium (Porcine) 5,000 units 07/15/18 14:00 07/24/18 06:36 Heparin Vial(*) SUBCUT 5,000 units Q8HR JB Administration Isosorbide Mononitrate 60 mg 07/16/18 09:00 07/24/18 08:10 Imdur Er Tab* PO 60 mg DAILY JB Administration Levothyroxine Sodium 200 mcg 07/16/18 06:00 07/24/18 06:35 Synthroid Tab* PO 200 mcg DAILY@0600 JB Administration Magnesium Chloride 64 mg 07/21/18 12:00 07/23/18 11:55 Slow Mag Ec Tab* PO 64 mg DAILY@1200 JB Administration Magnesium Hydroxide 30 ml 07/15/18 13:33 07/21/18 07:43 Milk Of Magnesia Liq* PO 30 ml Q6H PRN Administration CONSTIPATION Metformin HCl 500 mg 07/22/18 17:00 07/24/18 08:10 Glucophage* PO 500 mg 0800,1700 JB Administration Metoprolol Succinate 25 mg 07/15/18 21:00 07/24/18 08:09 Toprol Xl Tab* PO 25 mg BID JB Administration Nystatin 1 applic 07/15/18 21:00 07/23/18 20:06 Nystatin Top Powder* TOPICAL Not Given BID [facility] Polyethylene Glycol/Electrolytes 17 gm 07/19/18 22:30 07/22/18 08:06 Miralax* PO 17 gm DAILY PRN Administration CONSTIPATION Senna 2 tab 07/15/18 13:33 07/23/18 20:17 Senokot Tab* PO 2 tab BEDTIME PRN Administration CONSTIPATION Vital Signs: Vital Signs Temp Pulse Resp BP Pulse Ox 97.9 F 67 18 131/46 96 07/24/18 06:39 07/24/18 06:39 07/24/18 08:13 07/24/18 06:39 07/24/18 06:39 Lab Results: Laboratory Results - last 24 hr 07/23/18 07/23/18 07/23/18 12:00 16:25 20:17 POC Glucose (mg/dL) 99 82 153 H 07/24/18 07:15 POC Glucose (mg/dL) 165 H Exam: LUNGS: clear bilat HEART: reg rhythm ABDOMEN: Soft, +BS EXTREMITIES: Left ankle in splint. Toes pink. NEUROLOGIC: alert and oriented. Motor exam non focal. Can wiggle toes on left foot Assessment/Plan: 1. Left bimalleolar ankle fracture: NWB left leg. PT/OT. D/C today 2. CAD, S/P stents: ASA/Plavix/Imdur/Lasix/Toprol 3. Diabetes: insulin pump/Metformin. Restart Januvia at home 4. DPN: Gabapentin 5. DVT Prophylaxis: Heparin S/Q 6. Advanced Directives: Full code 7. Hypothyroidism: Synthroid 8. Depression: Wellbutrin XL 9. CHF: stable on Lasix 10. Analgesia: [place] 1-2 tabs Q4 PRN 07/24/18 10:02
--- NOTE | 2018-07-25 17:33 | DS ---
CC: Kamlesh Davis; Dr. Samy Collins * DISCHARGE SUMMARY: DATE OF ADMISSION: 07/15/18 DATE OF DISCHARGE: 07/24/18 DISCHARGE DIAGNOSES: 1. Left ankle fracture, status post open reduction internal fixation of same. 2. Chronic obstructive pulmonary disease. 3. Hypothyroidism. 4. Coronary artery disease, status post multiple stents. 5. Congestive heart failure. 6. Diabetes mellitus. 7. Status post pacemaker placement. 8. Diabetic peripheral neuropathy. HISTORY OF ILLNESS AND HOSPITAL COURSE: For a complete history of the events leading up to her rehab stay, please see the history and physical dictated by me on 07/15/18. While on the rehab unit, pain control was initially a big problem. The patient had gotten quite confused on the acute service from opioid analgesics. She was not receiving adequate analgesia with tramadol. She was started on a half of [place], which she seemed to tolerate. This was increased to 1 whole [place] and later 1 to 2 [place] as needed. This seemed to provide her adequate pain relief. The patient was complaining of urinary frequency. A urinalysis was checked, which initially was consistent with UTI, but her urine culture was negative. She was given 3 doses of Cipro and then this was stopped. The patient's metformin was added to her insulin pump for better blood sugar control. She also takes Januvia, which will be restarted when she goes home. The patient was otherwise medically stable. She was seen by both Physical and Occupational Therapy and made good gains with both disciplines. With physical therapy at the time of admission, the patient was dependent for transfers, unable to ambulate, unable to hop. With occupational therapy, on admission, the patient was moderate amount of assistance for upper body dressing, max assist of 2 people for lower body dressing, total assistance for toileting, total assistance for toilet transfers. By the time of discharge , the patient was independent in upper body dressing, required moderate assistance for lower body dressing and footwear, supervision for toilet transfers and toileting. With physical therapy, she was independent in transfers at the time of discharge, and she was able to hop about 5 feet independently. She was independent on wheelchair mobility. The patient's long- time domestic partner was brought in for family training prior to discharge. They both felt safe in her going home. She was discharged home 07/24/18. The patient was examined on the day of discharge by me and was stable DISCHARGE DIET: Consistent carbohydrate. DISCHARGE MEDICATIONS: 1. Amlodipine 5 mg daily. 2. [place] 1 to 2 tablets every 4 hours as needed for pain. 3. Aspirin 81 mg daily. 4. Lipitor 40 mg daily. 5. Baclofen 5 mg 3 times a day as needed for spasm. 6. Wellbutrin XL 300 mg daily. 7. Plavix 75 mg daily. 8. Lasix 40 mg daily. 9. Neurontin 600 mg 3 times daily. 10. Imdur ER 60 mg daily. 11. Synthroid 200 mcg daily. 12. Slow magnesium 64 mg daily. 13. Glucophage 500 mg at 8 a.m. and 5 p.m. 14. Toprol-XL 25 mg twice daily. 15. Senokot 2 tablets at bedtime. 16. Januvia 100 mg daily. SERVICES AFTER DISCHARGE: Through visiting nurse service, she will have home nursing, home physical therapy, home occupational therapy. Follow up with Dr. Samy Collins in 1 to 2 weeks. She will also follow up with Dr. Gordon at [facility]. Time for this discharge was approximately 55 minutes, greater than half of that spent with her partner discussing post-rehab medications and pain management, orthopedic follow-up and ongoing therapy [id number]/[facility] #: [id number] MTDD
== END 2018-07-24 11:00 | disposition home health service (06) | DRG 561 ==
LOC: PMRU 13:12
PROVIDERS: ADMIT Physical Medicine & Rehabilitation; ATTEND Physical Medicine & Rehabilitation
PROC: F07Z5ZZ Bed Mobility Treatment (ICD-10-PCS; principal; 2018-07-15)
PROC: F07Z9ZZ Gait Training/Functional Ambulation Treatment (ICD-10-PCS; 2018-07-15)
PROC: F07Z8ZZ Transfer Training Treatment (ICD-10-PCS; 2018-07-15)
PROC: F07Z4ZZ Wheelchair Mobility Treatment (ICD-10-PCS; 2018-07-15)
PROC: F08Z0ZZ Bathing/Showering Techniques Treatment (ICD-10-PCS; 2018-07-15)
PROC: F08Z1ZZ Dressing Techniques Treatment (ICD-10-PCS; 2018-07-15)
PROC: F08Z3ZZ Feeding/Eating Treatment (ICD-10-PCS; 2018-07-15)
DX: S82.842D Displaced bimalleolar fracture of left lower leg, subsequent encounter for closed fracture with routine healing (principal); E11.42 Type 2 diabetes mellitus with diabetic polyneuropathy; I11.0 Hypertensive heart disease with heart failure; I50.9 Heart failure, unspecified; E66.01 Morbid (severe) obesity due to excess calories; I25.10 Atherosclerotic heart disease of native coronary artery without angina pectoris; E78.5 Hyperlipidemia, unspecified; Z96.41 Presence of insulin pump (external) (internal); E89.0 Postprocedural hypothyroidism; F32.9 Major depressive disorder, single episode, unspecified; W18.30XD Fall on same level, unspecified, subsequent encounter; Z79.4 Long term (current) use of insulin; Z85.850 Personal history of malignant neoplasm of thyroid; Z95.5 Presence of coronary angioplasty implant and graft; Z95.0 Presence of cardiac pacemaker; Z68.35 Body mass index [BMI] 35.0-35.9, adult; Z79.02 Long term (current) use of antithrombotics/antiplatelets; Z79.82 Long term (current) use of aspirin; Z79.899 Other long term (current) drug therapy; Z88.5 Allergy status to narcotic agent; Z88.0 Allergy status to penicillin; Z88.8 Allergy status to other drugs, medicaments and biological substances
CPT/HCPCS: 36415; 80053; 81003; 81015; 85025; 87086; A9270-GY; J1644

== ENCOUNTER 2018-09-18 14:05 | Inpatient (IN) | payer MEDICARE, MEDICAID ==
--- OUTSIDE RECORDS SUMMARY | 2018-09-18 14:10 | XMS REPORT ---
:1945 External Reference #:[id number] Author Organization [facility] Address [address] [place] [address] [place] [address] Phone [phone] Care Team Providers Name Role Phone Sade Gordon MD Primary Care Physician Unavailable Payers Type Date Identification Numbers Payment Provider Subscriber Medicare Primary Policy Number: [id number] Medicare Taylor Carmona Edis PayID: [id number] [address] [place] [address] Medielliott Part B Effective: 2000 Policy Number: Medicare Taylor J Edis [id number] Expires: 2018 PayID: [id number] [address] [place] [address] Medigap Part B Policy Number: [id number] Medicaid Taylor J Edis PayID: [id number] [address] [place] [address] Commercial Effective: 2015 Policy Number: 100% [employer] Taylor J Edis Expires: 2017 PayID: [id number] [address] Problems Date Description Provider Status Onset: 03/26/2012 [...] Chronic ischemic heart disease Bebeto Perez M.D., [facility], Active [facility] Onset: 09/02/2013 Essential hypertension Bebeto Perez M.D., [facility], Active [facility] Onset: 09/02/2013 Hyperlipidemia Bebeto Perez M.D., [facility], Active [facility] Onset: 03/09/2014 Preoperative cardiovascular Bebeto Perez M.D., [facility], Active examination [facility] Onset: 09/22/2015 Chronic ischemic heart disease, Bebeto Perez M.D., [facility], Active unspecified [facility] Onset: 02/29/2016 Heart murmur Bebeto Perez M.D., [facility], Active [facility] Onset: 02/29/2016 Mitral valve disorder Bebeto Perez M.D., [facility], Active [facility] Onset: 03/19/2016 Dyspnea Bebeto Perez M.D., [facility], Active [facility] Onset: 08/10/2016 Full respiratory system Soledad Mcclain MD Active examination Onset: 08/10/2016 Emphysema, unspecified Soledad Mcclain MD Active Onset: 06/07/2017 Cardiac pacemaker in situ Dalia Luke M.D. Active Onset: 07/11/2017 Chronic diastolic heart failure Bebeto Perez M.D., [facility], Active [facility] Onset: 09/11/2017 Unspecified diastolic (congestive) Bebeto Perez M.D., [facility] , Active heart failure [facility] Onset: 12/30/2017 Chest pain Bebeto Perez M.D., [facility], Active [facility] Onset: 04/16/2018 Neurogenic claudication [...] Use Quit 14 years ago as of 2015 ETOH Use Denies alcohol use Smoking Patient [...] Tablets 50mg 60tab 1 by mouth Z48.89 Andrea s every 6 Rg, hours as M.D. needed pain Clopidogrel 03/19 Active Tablets 75mg 90tab 1 by mouth R06.02 Bebeto Bisulfate s every day Thaddeus Perez, [facility], [facility] Isosorbide 03/09 Active Tablets ER 60mg 90tab 1 by mouth Bebeto Mononitrate 24HR s every day Thaddeus Perez, [facility], [facility] Nitrostat 06/18 Active Tablets Sub 0.4mg 25tab 1 sl Pedro S. /2012 s q5mins x3 Mitchell, as needed DO [facility] for chest pain, if no relief call 911 Etouch Ultra Test 09/22 Active Strips 500un test as 250.02 Jill Strips its directed Plata, up to 4-5 M.D. times a day Onetouch Lancets 09/22 Active Misc 500un test 4-5 250.02 Jill its times x Plata, per day M.D. Ranexa 09/03 Active Tablets ER 1000mg 180ta 1 by mouth Beebto 12HR bs twice a [place], roland Travis, [facility], [facility] BD Pen [place] 05/05 Active Misc 31G X 8 540un for use Jill Short/Ultrafine/ mm its with Boni, 1G X 03/26" insulin M.D. pens as directed Metoprolol Active Tablets ER 25mg 270ta take 1 tab Bebeto Succinate ER /0000 24HR bs in the [place], morning M.D., and 1 tab FACC, in the [facility] evening Metformin HCL Active Tablets 1000mg 60tab 1 po bid Unknown / s Humalog Active 100Units/ use via Unknown /0000 ML pump max 125 per day Gabapentin Active Tablets 600mg 1 tab po Bollinger, tid prn MD Clyde Levothyroxine Active Tablets 200mcg 30tab 1 by mouth 244.0 Unknown Sodium / s every day Aspirin Active Tablets 81mg 1 by mouth Unknown /0000 every day Losartan Active Tablets 100mg 1 by mouth Unknown Potassium / every day Bupropion HCL ER Active Tablets ER 300mg one tab Bollinger, (XL) / 24HR daily MD Clyde Amitiza Active Capsules 8mcg twice [place], / daily EUSEBIO Yun Crestor Active Tablets [...] 60tab 1 by mouth s every 6 [place], - hours as M.D. 06/13 pain Sulfamethoxazole/ 08/14 Hx Tablets 800-160mg 60tab 1 by mouth M86.172 Aj Trimethoprim s twice D. - daily [place], 07/27 Kavin.Elizabeth Hydrochlorothiazi 06/30 Hx Tablets 25mg 30tab one pill a Bebeto duval s day Cindy Perez M.D., 06/03 [facility], [facility] Clopidogrel 03/19 Hx Tablets 300mg 1tabs take one R06.02 Bebeto Bisulfate today Cindy Perez M.D., 08/26 [facility], [facility] [place] 08/10 Hx Tablets 5-325mg 30tab 1 by mouth Romeo s twice a Michael, - day as Thaddeus 02/25 pain Atorvastatin 01/24 Hx Tablets 80mg 90tab 1 by mouth Bebeto Christianson s every day Cindy Perez M.D., 07/27 [facility], [facility] Clopidogrel 05/12 Hx Tablets 75mg 90tab 1 tab by Bebeto Bisulfate s mouth Chris, - every day M.DTrina, 02/25 [facility], [facility] Naproxen 12/02 Hx Tablets 500mg 60tab 1 po bid s prn Cindy Renae M.D. 03/21 [place] 12/02 Hx Tablets 5-325mg 60tab 1-2 tabs s po q4-6 h [place], - prn pain Kavin.DTrina 03/08 Aspirin 09/02 Hx Tablets 81mg 1 po qd Cindy Perez M.D., 12/02 [facility], [facility] Clopidogrel 03/25 Hx Tablets 75mg 90tab 1 tab by Bebeto s mouth Chris, - every day M.DTrina, 05/12 [facility], [facility] Onetouch Ultra 09/22 Hx Strips 450un test as 250.02 Jill its directed Boni, - up to five M.D. 09/22 times day Novolog Flexpen 09/22 Hx Solution 100Unit/M 20Fle 20 units 250.02 Jill /2012 L xpens sq tid Boni, Cindy Travis 09/02 Onetouch Lancets 09/22 Hx Misc 450un test 3 x 250.02 Jill /2012 its per day Cindy Plata M.D. 09/22 [...] Aerosol 18-103mcg 1unit 2 puff q 6 [place] /2011 / s hours as Chad knowles M.D. 12/02 Levemir Flexpen 08/15 Hx Solution 100Unit/M 30uni Inject 32 L ts Units Cindy Plata Under The M.DTrina 09/02 Skin In The Morning And 40 Units In The Evening Ureacin-20 08/05 Hx Cream 20% 1box apply on 700 soles of Cindy Plata feet every M.D. 09/02 Levothyroxine 08/05 Hx Tablets 175mcg 90tab 1 po daily 244.0 Jill Sodium s Cindy Plata M.D. 09/02 Accu-Chek 06/26 Hx Strips 4boxe check BS 250.02 Jill Advantage Test /2011 s 4-5 times Boni, Strips - /day M.D. 09/22 Accu-Chek 06/26 Hx Misc 4boxe test 4-5 250.02 Jill Softclix Lancets s times a Boni, - day M.D. 09/22 Wellbutrin SR 06/18 Hx Tablets ER 100mg 60tab 1 po bid 311 Jill /2012 12HR s Cindy Plata M.D. 09/17 Wellbutrin SR 05/19 Hx Tablets ER 100mg 30tab 1 po qd 311 Jill 12HR s Cindy Plata M.D. 08/05 Levothyroxine [...] 244.0 Jill s Tablet By Cindy Plata M.D. 06/24 Every Day Levothyroxine 04/20 Hx Tablets 175mcg 40tab 1 po qod Jill Cindy Rivera M.D. 06/24 Ambien 04/10 Hx Tablets 10mg 30tab 1 po qhs 780.52 s prn Cindy Sharma insomnia Thaddeus 05/19 Plavix 03/25 Hx Tablets 75mg 90tab 1 po qd Cindy Townsend M.D., 03/25 [facility] Ambien 03/25 Hx Tablets 5mg 30tab as needed 780.52 s before Cindy Plata sleep Thaddeus 04/10 Ibuprofen 10/09 Hx Tablets 600mg 90tab 1 po tid s prn Cindy Fernandes M.D. 09/02 Vicodin 05/29 Hx Tablets 5-500mg 60tab 1-2 by Aldair lukas Fernandes - every 4-6 M.DTrina 03/25 hours needed for pain Levothyroxine Hx Tablets 200mcg 90tab 1 po qd Unknown Sodium s - 05/[address] 40mg 90cap 1 po qd Jill / s Cindy Plata M.D. 02/25 Renexa Hx 1000mg 2x daily Unknown /0000 - 09/17 Micardis Hx Tablets 80mg 30tab 1 po qd Unknown / s - 08/05 Levemir Hx Solution 100Unit/M 6pens take 32 Jill /0000 L units sq Boni, - Am and 40 M.D. 08/15 units Nitroglycerin Hx Tab 0.4mg 1Bott 1 under Unknown /0000 le emae, - march repeat 06/18 Citalopram Hx Tablets 40mg 30tab 1 po qd Unknown Hydrobromide /0000 s - 05/19 Novolog Hx Solution 100Unit/M 1bott 20 units Jill /0000 L le tid as Boni, - directed M.D. 09/22 Lovastatin Hx Tablets 40mg 180ta 2 tabs by Bebeto /0000 bs mouth Stefe[place], - every day M.D., 03/15 [facility] Aspirin Hx Tablets DR 325mg 1 po qd Unknown / - 09/02 Isosorbide Hx Tablets ER 30mg 90tab 1 tab by Bebeto Mononitrate ER /0000 24HR s mouth Stefek, - every day M.D., 03/09 [facility] Fish Oil Hx Capsules 1000mg 1 po bid Unknown Burp-Less /0000 - 12/02 Micardis HCT Hx Tablets 80-25mg 90tab 1 tab by Bebeto /0000 s mouth Stefek, - every day M.D., 06/30 [facility] Micardis HCT Hx Tablets 80-12.5mg 90tab Take One Jill /0000 s Tablet By Boni - Mouth M.D. 09/17 Novolog Hx Solution 100Unit/M 1bott uses 250.02 Unknown /0000 L le novolog - insulin 12/02 Levothyroxine Hx Tablets 200mcg 90tab 1 po qd 244.0 Unknown Sodium / s - 03/[address] 60mg 90cap 1 po bid Unknown / Part s - 03/16 Tramadol HCL 00/00 Hx Tablets 50mg 1 tab po Bollinger, /0000 qid Cindy Tang MD 03/21 Escitalopram Hx Tablets 20mg 1 tab po [place]linger, Oxalate /0000 daily Cindy Tang MD 09/21 Lipitor Hx Tablets 80mg 30tab 1 by mouth Unknown /0000 s every - night at 03/21 Lovastatin Hx Tablets 40mg 30tab 2 by mouth Unknown /0000 s every - night at 01/24 Trazodone HCL 00 Hx Tablets 50mg 30tab 1-2 Unknown /0000 s tablets at - bedtime as 09/21 Hydrochlorothiazi Hx Tablets 25mg 1 by mouth Unknown de /0000 every day - 02/25 Amitiza Hx Capsules 8mcg 1 by mouth Unknown /0000 twice a - day 02/25 Brilinta 00/ Hx Tablets 90mg 1 tab by Unknown /0000 mouth - twice a Duloxetine HCL Hx Caps DR 60mg 1 by mouth Unknown /0000 Part bid - 08/13 Cephalexin 0000 Hx Tablets 500mg 1 tab po Unknown /0000 qid - 08/13 Bactrim DS 00 Hx Tablets 800-160mg 1 by mouth Unknown /0000 twice a - day 07/27 Lovastatin 00/00 Hx Tablets 40mg take one Unknown /0000 tab PO - daily 06/03 Pantoprazole 00/[address] 40mg 1 by mouth Unknown Sodium /0000 twice - daily 12/29 Lovastatin 0000 Hx Tablets 40mg take 2 Unknown /0000 tablet by - mouth at 12/28 Influenza Virus 0000 Active Injection Unknown Vaccine /0000 Immunizations CPT Code Status Date Vaccine Lot # [id number] Given 08/05/2012 Zoster (Zostavax) [id number] Given 07/11/2012 Pneumonia Vaccine 51429 Given 07/11/2012 Influenza Virus 3Yrs & Over 36[address] Ordered 07/11/2012 Pneumonia Vaccine Vital Signs Date Vital Result Comment 09/10/2018 Height 67 inches 5'7" Weight 240.00 lb Respiratory Rate 18 /min Pain Level 0 BMI (Body Mass Index) 37.6 kg/m2 09/09/2018 Height 67 inches 5'7" Weight 240.00 lb Heart Rate 72 /min Respiratory Rate 16 /min Body Temperature 98.2 F BMI (Body Mass Index) 37.6 kg/m2 09/05/2018 Heart Rate 68 /min BP Systolic 124 mmHg BP Diastolic 68 mmHg Respiratory Rate 16 /min Pain Level 0 08/08/2018 Heart Rate 76 /min Respiratory Rate 12 /min Body Temperature 97.8 F Pain Level 0 06/13/2018 Height 67 inches 5'7" Weight 232.00 [...] 200 ng/mL Less Than 230 33 finding CBC Auto Diff 02/27/2016 White Blood Count [...] 0-2 Nucleated Red Blood Cells % 0 Comp Metabolic Panel 02/27/2016 Sodium 131 mmol/L [...] Egfr Non- 70.5 >60 Egfr 90.7 >60 34 Laboratory test finding 02/27/2016 Troponin-I (TnI) 0.01 ng/mL <0.03 35 Creatine Kinase(CK) 104 U/L 10-223 CKMB 02/27/2016 CKMB ng/mL 3.9 ng/mL 0.6-6.3 Basic Metabolic Panel 03/12/2014 Sodium 134 mmol/L [...] 81.4 >60 36 Egfr 104.7 >60 36, 37 Laboratory test finding 03/12/2014 B Type Natriuretic Peptide 199 pg/mL 36, 38 D Dimer Quantitative 343 ng/mL High Less Than 230 36, 39 Laboratory test finding 09/04/2013 Alt 33 U/L 14-54 Ast 25 U/L 12-42 Lipid Profile (Trig/Chol/HDL) 09/04/2013 Triglycerides 105 mg/dL 40-200 Cholesterol 162 mg/dL Less than 200 HDL Cholesterol 43 mg/dL 40-60 40 Cholesterol/HDL Ratio 3.8 Average 1-4.44 LDL Cholesterol 98.0 Less Than 100 41 Laboratory test finding 09/17/2012 Free T3 3.02 pg/mL 2.39-6.79 Laboratory test finding 09/17/2012 TSH (Thyroid Stimulating 2.42 MIU/ML 0.34-5.60 Horm) Free T4 1.05 NG/ML 0.61-1.24 Laboratory test finding 08/04/2012 Hemoglobin A1c 8.7 % High Less Than 6.0 42 Urine Microalbumin 08/04/2012 Microalbumin (MG/L) 9.0 mg/L [...] 25 U/L 12-42 Laboratory test finding 08/04/2012 TSH 2.13 MIU/ML 0.34-5.60 Thyroxine Free 1.08 ng/dL 0.61-1.24 T3 Free 3.62 pg/mL 2.39-6.79 PTH Intact, Inc Total Calcium 08/04/2012 PTH Intact 1.9 PMOL/L 1.3-9.3 Calcium For Pthi 9.5 mg/dL 8.1-9.9 46 Vitamin D, 25 Hydroxy 08/04/2012 25-Hydroxy Vitamin D2 <4.0 ng/mL () 25-Hydroxy Vitamin D3 49 ng/mL () 25-Hydroxy Vitamin D Total 49 ng/mL () 47 Laboratory test finding 08/04/2012 CPK (Creatine Kinase) 64 U/L 0-170 Laboratory test finding 05/16/2012 TSH 3.58 MIU/ML [...] 04/10/2012 Hemoglobin A1c 7.5 High 5-7 1 Consumer Insights Intern: [id number] 2 Consumer Insights Intern: [id number] 3 Consumer Insights Intern: [id number] 4 Consumer Insights Intern: [id number] 5 Because ethnic data is not always [...] and in selective patients <6.0%.Please refer to [employer] Diabetic care guidelines for further information. 16 FASTING 17 Test Performed by: [facility] [address] [address] Telex Operator: Luis Escobedo II, M.D., Ph.D. 18 ADDITIONAL INFORMATION This test was developed and its performance characteristics determined by [facility] in a manner consistent with CLIA requirements. This test has not been cleared or approved by the U.S. Food and Drug Administration. Test Performed by: [address] [address] Telex Operator: Luis Escobedo II, M.D., Ph.D. 19 Consumer Insights Intern: [id number] MOLIVIATIS GITA 20 Consumer Insights Intern: [id number] MOLIVIATIS GITA 21 [employer] Insights Intern: [id number] MOLIVIATIS GITA 22 [employer] Insights Intern: [id number] MOLIVIATIS GITA 23 [employer] Insights Intern: [id number] MOLIVIATIS GITA 24 Consumer Insights Intern: [id number] MEIXELL ROMELIA 25 Consumer Insights Intern: [id number] MEIXELL ROMELIA 26 [employer] Insights Intern: [id number] PARLETT EBONY R 27 [employer] Insights Intern: [id number] PARLETT EBONY R 28 Consumer Insights Intern: [id number] MOLIVIATIS GITA 29 [employer] Insights Intern: [id number] MOLIVIATIS GITA 30 Acute inflammation: >10.00 31 Reference ranges based on room air. 32 Consumer Insights Intern: [id number] MOLIVIATIS GITA 33 Please note: The following may produce a false positive D Dimer test: - Rheumatoid factor greater than 60 IU/ml - Plasma hemoglobin greater than 0.05 gm/dl - Bilirubin greater than 50 mg/dl - Lipids greater than 1000 mg/dl - FDP greater than 20 ug/ml 34 Because ethnic data is not always readily [...] 15-29 5 Kidney failure <15 (or dialysis) 35 Reference Range and Interpretation: TnI (ng/mL) Interpretation Less Than 0.03 ng/mL Not supportive of diagnosis of ME 0.03 - 0.50 ng/mL Indeterminate: suggest serial studies if clinically indicated. Greater than 0.5 ng/mL Consistent with diagnosis of ME 36 Verbal to [facility] by TORREY at 0928 on 03/12/14.~Results read back accurately. 37 Because ethnic data is not always readily [...] 15-29 5 Kidney failure <15 (or dialysis) 38 >100 to <200 pg/mL: likely compensated congestive heart failure (CHF) 200 to 400 pg/mL: likely moderate CHF >400 pg/mL: likely moderate to severe CHF [place] [facility] 39 Please note: The following may produce a false positive D Dimer test: - Rheumatoid factor greater than 60 IU/ml - Plasma hemoglobin greater than 0.05 gm/dl - Bilirubin greater than 50 mg/dl - Lipids greater than 1000 mg/dl - FDP greater than 20 ug/ml 40 HDL Interpretation: Undesirable: High Risk: Less [...] IN SELECTIVE PATIENTS <6.0%. PLEASE REFER TO [place] DIABETIC CARE GUIDELINES FOR FURTHER [...] note updated reference range, effective 06/01/10 46 Please note change in reference range effective 08 . 47 -- REFERENCE VALUE -- 25-HYDROXY D TOTAL (D2+D3) Optimum levels in the normal population are 25-80 Test Performed by: [address] [address] Telex Operator: Pan Maravilla III, M.D. 48 CHOLESTEROL INTERPRETATION: Desirable: Less than 200 [...] dialysis) Procedures Date CPT Code Description Status 09/10/2018 93853 Short Leg Cast Completed 09/09/2018 01203 Walking Cast Completed 07/10/2018 30222 ORIF Open TX Bimalleolar Ankle FX Includes Internal Completed Fixation 07/10/2018 70286 ORIF Open TX Bimalleolar Ankle FX Includes Internal Completed Fixation 06/09/2018 17104 Pace Maker Eval W/Iterative Adjment Dual Lead Completed 06/09/2018 59849 Pace Maker Eval W/Iterative Adjment Dual Lead Completed 05/06/2018 25324 Grijalva/Facet/Foraminotomy;Vertebral Segment; Lumbar Completed 05/06/2018 61323 Grijalva/Facet/Foraminotomy;Vertebral Segment; Lumbar Completed 04/30/2018 44385 EKG Tracing & Interpretation Completed 12/30/2017 95691 EKG Tracing & Interpretation Completed 12/09/2017 17832 Treadmill Interp/Report Only Completed 12/09/2017 44287 Stress Test Supervsn W/Out I/R Completed 12/09/2017 71992 EKG, Interpretation Only Completed 12/08/2017 09005 EKG, Interpretation Only Completed 12/06/2017 45049 Pace Maker Eval W/Iterative Adjment Dual Lead Completed 12/06/2017 90586 Pace Maker Eval W/Iterative Adjment Dual Lead Completed 09/11/2017 23318 EKG Tracing & Interpretation Completed 08/30/2017 44049 Pace Maker Eval W/Iterative Adjment Dual Lead Completed 08/30/2017 06961 Pace Maker Eval W/Iterative Adjment Dual Lead Completed 07/30/2017 00876 Pace Maker Eval W/Iterative Adjment Dual Lead Completed 07/09/2017 34187 Icd Eval Sing,Dual,Multi Lead Remote Recpt Transm Tech Completed Rev Tech S 07/09/2017 15445 Pacemaker Check Remote Up To 90Days Completed Single,Dual,Multiple Lead 06/01/2017 80427 EKG, Interpretation Only Completed 05/31/2017 37955 Perm Pacemaker Av Sequential Atrial And Ventricular Completed 05/29/2017 03093 ECHO Transthorasic Realtime 2D W Doppler & Color Flow Completed Hosp 05/29/2017 40804 EKG, Interpretation Only Completed 08/28/2016 23747 Apply Total Contact Leg Cast Completed 08/24/2016 22472 Hyperbaric Oxygen Therapy By Physician Completed 08/23/2016 46060 Hyperbaric Oxygen Therapy By Physician Completed 08/22/2016 01312 Hyperbaric Oxygen Therapy By Physician Completed 08/21/2016 46962 Hyperbaric Oxygen Therapy By Physician Completed 08/21/2016 89841 Removal Devitalization Tissue Wound Less Than Equal 20 Completed Square CM 08/14/2016 39577 Removal Devitalization Tissue Wound Less Than Equal 20 Completed Square CM 08/10/2016 25070 Pulmonary Function><Bronchodil Completed 08/10/2016 41966 Plethysmography Determination Lung Volumes & Per Airway Completed Resist 08/10/2016 46169 Diffusing Capacity Completed 08/09/2016 58911 Apply Total Contact Leg Cast Completed 08/07/2016 55619 Removal Devitalization Tissue Wound Less Than Equal 20 Completed Square CM 08/02/2016 90062 Removal Devitalization Tissue Wound Less Than Equal 20 Completed Square CM 07/24/2016 55016 Removal Devitalization Tissue Wound Less Than Equal 20 Completed Square CM 03/14/2016 27411 ECHO Transthorasic Realtime 2D W Doppler & Color Flow Completed Hosp 02/28/2016 15278 Treadmill Interp/Report Only Completed 02/28/2016 74895 Stress Test Supervsn W/Out I/R Completed 02/27/2016 81333 EKG Tracing & Interpretation Completed 09/22/2015 30844 EKG Tracing & Interpretation Completed 08/10/2015 13450 FX Metatarsal Care Completed 09/24/2014 09904 EKG Tracing & Interpretation Completed 03/17/2014 97116 ECHO Transthorasic Realtime 2D W Doppler & Color Flow Completed Hosp 03/17/2014 45311 Treadmill Interp/Report Only Completed 03/17/2014 23417 Stress Test Supervsn W/Out I/R Completed 03/09/2014 11590 EKG Tracing & Interpretation Completed 01/01/2014 87370 Rad Exam; Foot Limited Completed 01/01/2014 18279 Rad Exam; Foot Limited Completed 12/09/2013 43749 Rad Exam; Foot Limited Completed 12/02/2013 86431 FX Metatarsal Care Completed 12/02/2013 40625 FX Metatarsal Care Completed 09/02/2013 49878 EKG Tracing & Interpretation Completed 02/11/2013 32290 EKG Tracing & Interpretation Completed 06/20/2012 Bone Mineral Density Test Completed 04/15/2012 Diabetic Foot Exam Completed 04/03/2012 Diabetic Retinal Eye Exam Completed 10/09/2011 79693 Rad Shoulder Comp, Min. 2 Views Completed 10/09/2011 61384 Rad Shoulder Comp, Min. 2 Views Completed 10/09/2011 62692 Rad Shoulder Comp, Min. 2 Views Completed 09/18/2011 45513 Closed trtmt prox humeral fx Completed 09/06/2011 93973 Rad Shoulder Comp, Min. 2 Views Completed 09/06/2011 24619 Closed trtmt prox humeral fx Completed 06/13/2011 32976 Rad Exam; Ankle Comp Completed 05/29/2011 88125 CLSD TX Distal Fib FX (Lateral Malleolus) w/o Completed manipulation Encounters Type Date Location Provider CPT E/M Dx Office Visit 07/15/2018 [facility] 97280 S82.842A 3:35p Assoc, Hospitalists BIRDIE Duran J44.9 Z79.4 E11.9 I10 Office Visit 07/14/2018 3:35p [facility] 15280 S82.842A Assoc, Hospitalists BIRDIE Duran J44.9 E11.9 I10 Office Visit 07/13/2018 3:34p [facility] 18653 S82.842A Assoc, Hospitalsteven Duran NP E11.9 I10 J44.9 Office Visit 07/12/2018 3:34p [facility] 47423 S82.842A Assoc, Hospitalists BIRDIE Duran R09.02 J44.9 E11.9 I10 Office Visit 07/11/2018 3:33p [facility], 80356 S82.842A Assoc, Hospitalists ASSISTED LIVING ASSISTANT E11.9 I10 E78.5 Office Visit 07/10/2018 3:33p [facility], 84555 S82.842A Assoc, Hospitalists ASSISTED LIVING ASSISTANT R53.1 E11.9 I10 Office Visit 07/09/2018 3:32p [facility], 01784 S82.842A Assoc,pc Hospitalists ASSISTED LIVING ASSISTANT N17.9 E87.5 E83.42 E11.9 I10 Office Visit 07/09/2018 1:58p [place] [address] S82.842A Of [facility] Office Visit 05/14/2018 9:19a [facility] Laura Charli, 48430 E11.9 Assoc,pc Hospitalists M.D. B95.2 N39.0 Office Visit 05/13/2018 9:18a [facility], Laura Charli, 57336 E11.9 Hospitalists M.D. N39.0 B95.2 Office Visit 05/12/2018 9:07a [facility], Laura Augustin, 68648 E11.9 Hospitalists M.DTrina N17.9 E87.1 B95.2 N39.0 J18.9 Office Visit 05/11/2018 1:15p [facility], Laura Augustin, 86314 M54.5 Hospitalists M.DTrina E87.1 N39.0 B95.2 Office Visit 05/10/2018 9:06a [facility], [place] [address] E11.9 Hospitalists N39.0 M79.662 Office Visit 05/08/2018 9:06a [facility], Luis Alexander, 39227 M79.662 Hospitalists [place] E11.9 I25.10 Z98.1 Office Visit 04/30/2018 3:20p [facility] Molly Perez M.D., 72594 Z01.810 [facility] AT [facility], [facility] Z95.0 I25.10 M48.062 Office Visit 04/16/2018 1:50p [facility] Andrea Diez, 59470 M48.062 Of [place] Office Visit 03/26/2018 1:45p [facility] Susie Kan PA-C 12183 M48.062 Of [facility] M51.36 R09.89 Z95.0 Office Visit 12/30/2017 11:20a [facility] Molly Perez M.D., 88415 R07.9 Superintendent [employer] AT [facility], [facility] I10 E78.2 I25.10 Office Visit 12/09/2017 3:14p [facility] Of Bebeto Perez M.D., 85783 Superintendent [employer] AT [facility] Office Visit 10/01/2017 10:30a [facility] [place] [address] I10 Superintendent [employer] AT [facility] Office Visit 09/30/2017 10:00a [facility] Of Bebeto Perez M.D., 90555 I10 Superintendent [employer]oring AT [facility] Office Visit 09/11/2017 11:40a [facility] Of Bebeto Perez M.D., 32449 R06.02 Superintendent [employer] AT [facility] Z95.0 I25.9 E78.5 I50.30 I10 Office Visit 07/11/2017 3:40p [facility] Of Bebeto Perez M.D., 81484 Z95.0 Superintendent [employer] AT [facility] I25.10 I50.32 R06.02 Office Visit 06/07/2017 11:30a [facility] Of Dalia Luke M.D. 54894 R00.1 Superintendent Stevedoring Z95.0 I25.10 E16.2 I50.9 Office Visit 06/01/2017 2:08p [facility]oc, Brandi Allison, 08485 R00.1 Hospitalists MNiki I50.33 I25.10 E11.9 Office Visit 05/31/2017 2:06p [facility] Brandi Allison, 12160 R00.1 Hospitalists MNiki I25.10 I50.33 E11.9 Office Visit 05/30/2017 2:06p [facility], Brandi Allison, 51593 R00.1 Hospitalists MNiki I25.10 I50.33 E11.9 Office Visit 05/29/2017 2:05p [facility] [place] [address] R00.1 Assoc, Hospitalists Thaddeus I25.10 I50.33 E11.9 Office Visit 05/29/2017 3:46p [facility] Dalia Luke M.D. 01870 Z95.0 Superintendent Stevedoring I49.5 I50.30 Office Visit 09/26/2016 2:00p [facility] Bebeto Perez M.D., 66662 I10 AT [facility], [facility] I25.10 E78.2 E66.9 Office Visit 09/11/2016 8:26a [facility] AT Andrea BrownTrina Chen, 83347 E11.621 [facility] M.D. Office Visit 08/28/2016 8:50a [facility] Devorah Johnson 73918 E11.621 Infectious Diseases Thaddeus Calzada Office Visit 08/15/2016 12:00p [facility] [place] [address] Z01.811 Services Of [facility] Office Visit 08/14/2016 11:30a [facility] Devorah Johnson 53755 M86.172 Infectious Diseases Thaddeus Calzada E11.40 Office Visit 08/10/2016 7:30a [facility] [place] [address] J43.9 Services Of [facility] Z01.811 E11.621 L97.529 Office Visit 07/24/2016 11:33a [facility] AT Andrea KevinTrina Chen, 64375 E11.621 [facility] M.D. Office Visit 03/19/2016 3:00p [facility] Molly Perez M.D., 76046 I34.0 [facility] AT [facility], [facility] I25.10 I34.2 R06.02 Office Visit 03/12/2016 2:40p [facility] Ass, Kim Hernandez N.P. 36023 R07.9 Hospitalists I25.10 K21.9 Office Visit 02/29/2016 9:40a [facility] Molly Perez M.D., 79800 I25.9 [facility] AT [facility], [facility] I34.0 Office Visit 02/27/2016 10:40a [facility] Bebeto Perez M.D., 36182 I10 AT [facility], [facility] E78.5 I25.9 Office Visit 09/22/2015 11:00a [facility] Molly Perez M.D., 90927 I25.9 [facility] AT [facility], [facility] I10 E78.5 E66.9 Office Visit 09/24/2014 3:20p [facility] Of Bebeto Perez M.D., 37810 414.9 Superintendent Ste[employer]oring AT [facility], [facility] 401.9 272.4 Office Visit 03/22/2014 3:15p [facility] Of Bebeto Perez M.D., 53685 V72.81 Superintendent Stevedoring AT [facility], [facility] 414.9 401.9 272.4 Office Visit 03/09/2014 3:30p [facility] Bebeto Perez M.D., 01300 414.9 Superintendent Stevedoring AT [facility], [facility] 401.9 272.4 V72.81 Office Visit 09/02/2013 2:45p [facility] Bebeto Perez M.D., 59039 414.9 Superintendent Stevedoring AT [facility], [facility] 401.9 272.4 Office Visit 02/11/2013 3:30p [facility] Bebeto Perez M.D., 57911 414.9 Superintendent Stevedoring AT [facility], [facility] 401.9 Office Visit 09/17/2012 10:10a [facility] Internal Medicine Jill Plata M.D. 75784 244.0 - Kimberly 787.02 401.9 311 799.81 Office Visit 08/05/2012 10:30a [facility] Internal Medicine Jill Plata 48116 250.02 - Kimberly Travis 244.0 700 787.02 733.90 401.9 V04.89 Office Visit 06/18/2012 12:10p [facility] Internal Medicine Jill Plata 64718 250.02 - Kimberly Travis 311 781.91 Office Visit 05/19/2012 10:00a [facility] Internal Medicine Jill Plata 37847 250.02 - Kimberly Travis 311 244.0 782.3 327.02 Office Visit 04/10/2012 10:30a [facility] Internal Medicine Jill Plata 63077 250.02 - Kimberly Travis 272.2 780.52 V10.87 244.0 735.4 Office Visit 03/25/2012 10:00a [facility] Internal Medicine Jill Plata 76396 250.02 - Kimberly Travis 311 401.9 414.01 272.2 780.52 278.00 Office Visit 10/09/2011 1:45p [facility] Quincy Carrillo 56005 812.03 Of Richard Monroy R.P.A.-Mario 812.09 Office Visit 09/21/2011 9:00a [facility] Shanique Adorno 22944 812.00 Of Richard Travis Office Visit 09/18/2011 9:00a [facility] Aldair Fernandes M.D. 06483 812.09 Of Richard 812.00 Office Visit 09/06/2011 9:30a [facility] Quincy Carrillo 67982 812.09 Of Richard Monroy R.P.A.-C 812.00 Plan of Care Future Appointment(s):09/30/2018 8:45 am - Samy Collins MD at [facility].09/10/2018 - Samy Collins, [id number] Displ bimalleol fx l low leg, subs for clos fx w routn healFollow up:Follow Up: as scheduled
--- OUTSIDE RECORDS SUMMARY | 2018-09-18 14:10 | XMS REPORT ---
:1945 External Reference #:[id number] Author Organization [facility] Address [address] [place] [address] [place] [address] Phone [phone] Care Team Providers Name Role Phone Sade Gordon MD Primary Care Physician Unavailable Payers Type Date Identification Numbers Payment Provider Subscriber Medicare Primary Policy Number: [id number] Medicare Taylor Carmona Edis PayID: [id number] [address] [facility] [place] [address] Medim[place]ham Part B Effective: 2000 Policy Number: Medicare Taylor J Edis [id number] Expires: 2018 PayID: [id number] [address] [place] [address] Medigap Part B Policy Number: [id number] Medicaid Taylor J Edis PayID: [id number] [address] [place] [address] Commercial Effective: 2015 Policy Number: 100% [facility] Taylor J Edis Expires: 2017 PayID: [id number] [address] Problems Date Description Provider Status Onset: 03/26/2012 [...] Chronic ischemic heart disease Bebeto Perez M.D., [facility], Active [facility] Onset: 09/02/2013 Essential hypertension Bebeto Perez M.D., [facility], Active [facility] Onset: 09/02/2013 Hyperlipidemia Bebeto Perez M.D., [facility], Active [facility] Onset: 03/09/2014 Preoperative cardiovascular Bebeto Perez M.D., [facility], Active examination [facility] Onset: 09/22/2015 Chronic ischemic heart disease, Bebeto Perez M.D., [facility], Active unspecified [facility] Onset: 02/29/2016 Heart murmur Bebeto Perez M.D., [facility], Active [facility] Onset: 02/29/2016 Mitral valve disorder Bebeto Perez M.D., [facility], Active [facility] Onset: 03/19/2016 Dyspnea Bebeto Perez M.D., [facility], Active [facility] Onset: 08/10/2016 Full respiratory system Soledad Mcclain MD Active examination Onset: 08/10/2016 Emphysema, unspecified Soledad Mcclain MD Active Onset: 06/07/2017 Cardiac pacemaker in situ Dalia Luke M.D. Active Onset: 07/11/2017 Chronic diastolic heart failure Bebeto Perez M.D., [facility], Active [facility] Onset: 09/11/2017 Unspecified diastolic (congestive) Bebeto Perez M.D., [facility] , Active heart failure [facility] Onset: 12/30/2017 Chest pain Bebeto Perez M.D., [facility], Active [facility] Onset: 04/16/2018 Neurogenic claudication Andrea Diez M.D. Active co-occurrent and due to spinal stenosis of lumbar region Onset: 05/21/2018 Convalescence after surgery Adnrea Diez M.D. Active Family History Date Family [...] Bebeto Bisulfate s every day Thaddeus Perez, [facility] Isosorbide 03/09 Active Tablets ER 60mg 90tab 1 by mouth Bebeto Mononitrate 24HR s every day Thaddeus Perez, [facility] Nitrostat 06/18 Active Tablets Sub 0.4mg 25tab 1 sl Pedro S. /2012 s q5mins x3 Mitchell, as needed DO [facility] for chest pain, if no relief call 911 Etouch Ultra Test 09/22 Active Strips 500un test as 250.02 Ijll Strips its directed Plata, up to 4-5 M.D. times a day Onetouch Lancets 09/22 Active Misc 500un test 4-5 250.02 Jill its times x Plata, per day M.D. Ranexa 09/03 Active Tablets ER 1000mg 180ta 1 by mouth Bebeto 12HR bs twice a Flork, roland Travis, [facility] BD Pen Gallion 05/05 Active Misc 31G X 8 540un [...] Gabapentin Active Tablets 600mg 1 tab po Glades, tid prn MD Clyde Levothyroxine Active Tablets 200mcg 30tab 1 by mouth 244.0 Unknown Sodium / s every day Aspirin Active Tablets 81mg 1 by mouth Unknown /0000 every day Losartan Active Tablets 100mg 1 by mouth Unknown Potassium / every day Bupropion HCL ER Active Tablets ER 300mg one tab Glades, (XL) / 24HR daily MD Clyde Amitiza Active Capsules 8mcg twice [place], / daily EUSEBIO Yun Crestor Active Tablets [...] 60tab 1 by mouth s every 6 [place], - hours as M.D. 06/13 pain Sulfamethoxazole/ 08/14 Hx Tablets 800-160mg 60tab 1 by mouth M86.172 Aj Trimethoprim s twice D. - daily [place]queen, 07/27 Kavin.Elizabeth Hydrochlorothiazi 06/30 Hx Tablets 25mg 30tab one pill a Bebeto duval s day Cindy Perez M.D., 06/03 [facility] Clopidogrel 03/19 Hx Tablets 300mg 1tabs take one R06.02 Bebeto Bisulfate today Cindy Perez M.D., 08/26 [facility] [place]side 08/10 Hx Tablets 5-325mg 30tab 1 by mouth Romeo s twice a Michael, - day as Thaddeus 02/25 pain Atorvastatin 01/24 Hx Tablets 80mg 90tab 1 by mouth Bebeto Christianson s every day Cindy Perez M.D., 07/27 [facility] Clopidogrel 05/12 Hx Tablets 75mg 90tab 1 tab by Bebeto Bisulfate s mouth Chris, - every day M.DTrina, 02/25 [facility] Naproxen 12/02 Hx Tablets 500mg 60tab 1 po bid s prn Cindy Renae M.D. 03/21 [place] 12/02 Hx Tablets 5-325mg 60tab 1-2 tabs s po q4-6 h [place], - prn pain Kavin.DTrina 03/08 Aspirin 09/02 Hx Tablets 81mg 1 po qd Cindy Perez M.D., 12/02 [facility] Clopidogrel 03/25 Hx Tablets 75mg 90tab 1 tab by Bebeto s mouth Chris, - every day M.DTrina, 05/12 [facility] Onetouch Ultra 09/22 Hx Strips 450un test [...] Aerosol 18-103mcg 1unit 2 puff q 6 [place] /2011 / s hours as Chad knowles [...] Tablets 75mg 90tab 1 po qd Cindy Townsedn M.D., 03/25 [facility] Ambien 03/25 Hx Tablets [...] mouth Stefek, - every day M.D., 03/15 [facility] Aspirin Hx Tablets DR 325mg 1 po qd Unknown / - 09/02 Isosorbide Hx Tablets ER 30mg 90tab 1 tab by Bebeto Mononitrate ER /0000 24HR s mouth Stefek, - every day M.D., 03/09 [facility] Fish Oil Hx Capsules 1000mg 1 po bid Unknown Burp-Less /0000 - 12/02 Micardis HCT Hx Tablets 80-25mg 90tab 1 tab by Bebeto /0000 s mouth Stefek, - every day M.D., 06/30 [facility] Micardis HCT Hx Tablets 80-12.5mg 90tab Take [...] 00/00 Hx Tablets 50mg 1 tab po Glades, /0000 qid Cindy Tang MD 03/21 Escitalopram Hx Tablets 20mg 1 tab po Glades, Oxalate /0000 daily Cindy Tang MD 09/21 [...] CPT Code Status Date Vaccine Lot # [id number] Given 08/05/2012 Zoster (Zostavax) [id number] 72536 Given 07/11/2012 Pneumonia Vaccine 69199 Given 07/11/2012 Influenza Virus 3Yrs & Over 24230 Ordered 07/11/2012 Pneumonia Vaccine Vital Signs Date Vital Result Comment 09/16/2018 Respiratory Rate 14 /min Pain Level 0 09/10/2018 Height 67 inches 5'7" Weight 240.00 [...] 04/10/2012 Hemoglobin A1c 7.5 High 5-7 1 Credit Analysis Manager: [id number] 2 Credit Analysis Manager: [id number] Credit Analysis Manager: [id number] 4 Credit Analysis Manager: [id number] 5 Because ethnic data is not always [...] and in selective patients <6.0%.Please refer to [place] [employer] Diabetic care guidelines for further information. 16 FASTING 17 Test Performed by: [address] [address] Acquisition Associate: Luis Escobedo II, M.D., Ph.D. 18 ADDITIONAL INFORMATION This test was developed and its performance characteristics determined by [facility] in a manner consistent with CLIA requirements. This test has not been cleared or approved by the U.S. Food and Drug Administration. Test Performed by: [address] [address] Acquisition Associate: Luis Escobedo II, M.D., Ph.D. 19 Credit Analysis Manager: [id number] MOLIVIATIS GITA 20 Credit Analysis Manager: [id number] MOLIVIATIS GITA 21 Credit Analysis Manager: [id number] MOLIVIATIS GITA 22 Credit Analysis Manager: [id number] MOLIVIATIS GITA 23 Credit Analysis Manager: [id number] MOLIVIATIS GITA 24 Credit Analysis Manager: [id number] MEIXELL ROMELIA 25 Credit Analysis Manager: [id number] MEIXELL ROMELIA 26 Credit Analysis Manager: [id number] PARLETT EBONY R 27 Credit Analysis Manager: [id number] PARLETT EBONY R 28 Credit Analysis Manager: [id number] MOLIVIATIS GITA 29 Credit Analysis Manager: [id number] MOLIVIATIS GITA 30 Acute inflammation: >10.00 31 Reference ranges based on room air. 32 Credit Analysis Manager: [id number] MOLIVIATIS GITA 33 Please note: The following [...] 0.03 ng/mL Not supportive of diagnosis of ID 0.03 - 0.50 ng/mL Indeterminate: suggest serial studies if clinically indicated. Greater than 0.5 ng/mL Consistent with diagnosis of ID 36 Verbal to WAI by TORREY at [...] IN SELECTIVE PATIENTS <6.0%. PLEASE REFER TO [place] [employer] DIABETIC CARE GUIDELINES FOR FURTHER INFORMATION. 43 MICROALBUMINURIA IN A RANDOM SAMPLE IS DEFINED : MICROALBUMIN/CREATININE RATIO OF 30-299 ug/mg. . 44 A metabolite of Naproxen, O-desmethylnaproxen, has been shown to interfere with the Jendrassik-Leoma method for measuring total bilirubin. Samples from patients who have taken Naproxen have shown spurious elevation in total bilirubin levels. 45 Please note updated reference range, effective 06/01/10 46 Please note change in reference range effective 08 . 47 -- REFERENCE VALUE -- 25-HYDROXY D TOTAL (D2+D3) Optimum levels in the normal population are 25-80 Test Performed by: [place] [address] Acquisition Associate: Pan Maravilla III, M.D. 48 CHOLESTEROL INTERPRETATION: [...] dialysis) Procedures Date CPT Code Description Status 09/16/2018 50768 Walking Cast Completed 09/10/2018 30530 Short Leg Cast Completed 09/09/2018 17110 Walking Cast Completed 07/10/2018 95993 ORIF Open TX Bimalleolar Ankle FX Includes Internal Completed Fixation 07/10/2018 78206 ORIF Open TX Bimalleolar Ankle FX Includes Internal Completed Fixation 06/09/2018 42890 Pace Maker Eval W/Iterative Adjment Dual Lead Completed 06/09/2018 24458 Pace Maker Eval W/Iterative Adjment Dual Lead Completed 05/12/2018 35181 EKG, Interpretation Only Completed 05/06/2018 27235 Grijalva/Facet/Foraminotomy;Vertebral Segment; Lumbar Completed 05/06/2018 76162 Grijalva/Facet/Foraminotomy;Vertebral Segment; Lumbar Completed 04/30/2018 77666 EKG Tracing & Interpretation Completed 12/30/2017 15643 EKG Tracing & Interpretation Completed 12/09/2017 26126 Treadmill Interp/Report Only Completed 12/09/2017 18117 Stress Test Supervsn W/Out I/R Completed 12/09/2017 03193 EKG, Interpretation Only Completed 12/08/2017 07182 EKG, Interpretation Only Completed 12/06/2017 57647 Pace Maker Eval W/Iterative Adjment Dual Lead Completed 12/06/2017 70790 Pace Maker Eval W/Iterative Adjment Dual Lead Completed 09/11/2017 53634 EKG Tracing & Interpretation Completed 08/30/2017 06346 Pace Maker Eval W/Iterative Adjment Dual Lead Completed 08/30/2017 68291 Pace Maker Eval W/Iterative Adjment Dual Lead Completed 07/30/2017 30670 Pace Maker Eval W/Iterative Adjment Dual Lead Completed 07/09/2017 03141 Icd Eval Sing,Dual,Multi Lead Remote Recpt Transm Tech Completed Rev Tech S 07/09/2017 73642 Pacemaker Check Remote Up To 90Days Completed Single,Dual,Multiple Lead 06/01/2017 08112 EKG, Interpretation Only Completed 05/31/2017 28289 Perm Pacemaker Av Sequential Atrial And Ventricular Completed 05/29/2017 76976 EKG, Interpretation Only Completed 05/29/2017 38372 ECHO Transthorasic Realtime 2D W Doppler & Color Flow Completed Hosp 08/28/2016 29279 Apply Total Contact Leg Cast Completed 08/24/2016 32231 Hyperbaric Oxygen Therapy By Physician Completed 08/23/2016 96184 Hyperbaric Oxygen Therapy By Physician Completed 08/22/2016 20826 Hyperbaric Oxygen Therapy By Physician Completed 08/21/2016 53137 Hyperbaric Oxygen Therapy By Physician Completed 08/21/2016 87620 Removal Devitalization Tissue Wound Less Than Equal 20 Completed Square CM 08/14/2016 89715 Removal Devitalization Tissue Wound Less Than Equal 20 Completed Square CM 08/10/2016 28860 Pulmonary Function><Bronchodil Completed 08/10/2016 94618 Plethysmography Determination Lung Volumes & Per Airway Completed [facility] 08/10/2016 07874 Diffusing Capacity Completed 08/09/2016 69014 Apply Total Contact Leg Cast Completed 08/07/2016 13714 Removal Devitalization Tissue Wound Less Than Equal 20 Completed Square CM 08/02/2016 02966 Removal Devitalization Tissue Wound Less Than Equal 20 Completed Square CM 07/24/2016 90479 Removal Devitalization Tissue Wound Less Than Equal 20 Completed Square CM 03/14/2016 09297 ECHO Transthorasic Realtime 2D W Doppler & Color Flow Completed Hosp 02/28/2016 96266 Treadmill Interp/Report Only Completed 02/28/2016 80531 Stress Test Supervsn W/Out I/R Completed 02/27/2016 78097 EKG Tracing & Interpretation Completed 09/22/2015 88414 EKG Tracing & Interpretation Completed 08/10/2015 57735 FX Metatarsal Care Completed 09/24/2014 58413 EKG Tracing & Interpretation Completed 03/17/2014 97570 ECHO Transthorasic Realtime 2D W Doppler & Color Flow Completed Hosp 03/17/2014 61050 Treadmill Interp/Report Only Completed 03/17/2014 82455 Stress Test Supervsn W/Out I/R Completed 03/09/2014 19804 EKG Tracing & Interpretation Completed 01/01/2014 47391 Rad Exam; Foot Limited Completed 01/01/2014 65231 Rad Exam; Foot Limited Completed 12/09/2013 99453 Rad Exam; Foot Limited Completed 12/02/2013 10312 FX Metatarsal Care Completed 12/02/2013 08021 FX Metatarsal Care Completed 09/02/2013 17074 EKG Tracing & Interpretation Completed 02/11/2013 27951 EKG Tracing & Interpretation Completed 06/20/2012 Bone Mineral Density Test Completed 04/15/2012 Diabetic Foot Exam Completed 04/03/2012 Diabetic Retinal Eye Exam Completed 10/09/2011 92847 Rad Shoulder Comp, Min. 2 Views Completed 10/09/2011 60029 Rad Shoulder Comp, Min. 2 Views Completed 10/09/2011 18712 Rad Shoulder Comp, Min. 2 Views Completed 09/18/2011 25270 Closed trtmt prox humeral fx Completed 09/06/2011 51476 Rad Shoulder Comp, Min. 2 Views Completed 09/06/2011 30130 Closed trtmt prox humeral fx Completed 06/13/2011 37809 Rad Exam; Ankle Comp Completed 05/29/2011 98766 CLSD TX Distal Fib FX (Lateral Malleolus) w/o Completed manipulation Encounters Type Date Location Provider CPT E/M Dx Office Visit 07/15/2018 [facility] 86291 S82.842A 3:35p Assoc, Hospitalists BIRDIE Duran J44.9 Z79.4 E11.9 I10 Office Visit 07/14/2018 3:35p [facility] 19698 S82.842A Assoc, Hospitalists BIRDIE Duran J44.9 E11.9 I10 Office Visit 07/13/2018 3:34p [facility] 70387 S82.842A Assoc, Hospitalists BIRDIE Duran E11.9 I10 J44.9 Office Visit 07/12/2018 3:34p [facility] 70445 S82.842A Assoc, Hospitalists BIRDIE Duran R09.02 J44.9 E11.9 I10 Office Visit 07/11/2018 3:33p [facility], [address] S82.842A Assoc, Hospitalists LANE ATTENDANT E11.9 I10 E78.5 Office Visit 07/10/2018 3:33p [facility], [address]12 S82.842A Assoc,pc Hospitalists LANE ATTENDANT R53.1 E11.9 I10 Office Visit 07/09/2018 3:32p [facility] Karla Chapman, [address]82.[address] Assoc, Hospitalists LANE ATTENDANT N17.9 E87.5 E83.42 E11.9 I10 Office Visit 07/09/2018 1:58p [place] [address] S82.842A Of C.M.A. Office Visit 05/14/2018 9:19a [facility] Laura Augustin, 44358 E11.9 Assoc,pc Hospitalists Thaddeus B95.2 N39.0 Office Visit 05/13/2018 9:18a [facility], Laura Augustin, 98705 E11.9 Hospitalists Thaddeus N39.0 B95.2 Office Visit 05/12/2018 9:07a [facility], Laura Augustin, 29507 E11.9 Hospitalists Thaddeus N17.9 E87.1 B95.2 N39.0 J18.9 Office Visit 05/11/2018 1:15p [facility], Laura Augustin, 94395 M54.5 Hospitalists Thaddeus E87.1 N39.0 B95.2 Office Visit 05/10/2018 9:06a [facility], Karla Chapman, LANE ATTENDANT 30518 E11.9 Hospitalists N39.0 M79.662 Office Visit 05/08/2018 9:06a [facility], Luis Alexander, 81021 M79.662 Hospitalists PA E11.9 I25.10 Z98.1 Office Visit 04/30/2018 3:20p [employer] [facility] Of Bebeto Perez M.D., 89966 Z01.810 [employer] AT [facility] Z95.0 I25.10 M48.062 Office Visit 04/16/2018 1:50p [facility] Andrea Diez, 49030 M48.062 Of Harrison Travis Office Visit 03/26/2018 1:45p [facility] Services Susie Kan PA-C 55445 M48.062 Of [employer] M51.36 R09.89 Z95.0 Office Visit 12/30/2017 11:20a [employer] [facility] Molly Perez M.D., 16170 R07.9 [employer] AT [facility] I10 E78.2 I25.10 Office Visit 12/09/2017 3:14p [employer] [facility] Molly Perez M.D., 85083 [employer] AT [facility] Office Visit 10/01/2017 10:30a [employer] [address] I10 [employer] [place] [facility] Office Visit 09/30/2017 10:00a [employer] [facility] Molly Perez M.D., 88401 I10 [employer] AT [facility] Office Visit 09/11/2017 11:40a [employer] [facility] Molly Perez M.D., 23199 R06.02 [employer] AT [facility] Z95.0 I25.9 E78.5 I50.30 I10 Office Visit 07/11/2017 3:40p [employer] [facility] Molly Perez M.D., 52514 Z95.0 [employer] AT [facility] I25.10 I50.32 R06.02 Office Visit 06/07/2017 11:30a [employer] [facility] Gardenia Luke M.D. 42733 R00.1 [employer] Z95.0 I25.10 E16.2 I50.9 Office Visit 06/01/2017 2:08p [facility], Brandi Allison, 64827 R00.1 Hospitalists Thaddeus I50.33 I25.10 E11.9 Office Visit 05/31/2017 2:06p [facility], Brandi Allison, 40836 R00.1 Hospitalists Thaddeus I25.10 I50.33 E11.9 Office Visit 05/30/2017 2:06p [facility], Brandi Allison, 66245 R00.1 Hospitalists Thaddeus I25.10 I50.33 E11.9 Office Visit 05/29/2017 2:[facility]p [facility] 24884 R00.1 Assoc, Hospitalists Thaddeus I25.10 I50.33 E11.9 Office Visit 05/29/2017 3:46p [employer] [facility] Of Dalia Luke M.D. 26429 Z95.0 [facility] I49.5 I50.30 Office Visit 09/26/2016 2:00p [employer] [facility] Of [facility] Bebeto Perez M.D., 23759 I10 AT [facility] I25.10 E78.2 E66.9 Office Visit 09/11/2016 8:26a [facility] AT Andrea Chen, 22363 E11.621 [facility] M.D. Office Visit 08/28/2016 8:50a [facility] Aj Johnson 63962 E11.621 Infectious Diseases Thaddeus Calzada Office Visit 08/15/2016 12:00p Pulmonology [place] [address] Z01.811 Services Of [facility] Office Visit 08/14/2016 11:30a [facility] Aj Johnson 61105 M86.172 Infectious Diseases Thaddeus Calzada E11.40 Office Visit 08/10/2016 7:30a [facility] [place] [address] J43.9 Services Of [facility] Z01.811 E11.621 L97.529 Office Visit 07/24/2016 11:33a [facility] AT Andrea Chen, 90558 E11.621 [facility] M.D. Office Visit 03/19/2016 3:00p [employer] [facility] Molly Perez M.D., 68397 I34.0 [facility] AT [facility] I25.10 I34.2 R06.02 Office Visit 03/12/2016 2:40p [facility], Kim Hernandez N.Drew. 70553 R07.9 Hospitalists I25.10 K21.9 Office Visit 02/29/2016 9:40a [employer] [facility] Molly Perez M.D., 48148 I25.9 [employer] AT [facility] I34.0 Office Visit 02/27/2016 10:40a [employer] [facility] Of [facility] Bebeto Perez M.D., 53876 I10 AT [facility] E78.5 I25.9 Office Visit 09/22/2015 11:00a [employer] [facility] Of Bebeto Perez M.D., 88533 I25.9 [employer] AT [facility], [facility] I10 E78.5 E66.9 Office Visit 09/24/2014 3:20p [employer] [facility] Of Bebeto Perez M.D., 10492 414.9 [employer] AT [facility], [facility] 401.9 272.4 Office Visit 03/22/2014 3:15p [employer] [facility] Of Bebeto Perez M.D., 16810 V72.81 [employer] AT [facility], [facility] 414.9 401.9 272.4 Office Visit 03/09/2014 3:30p [employer] [facility] Of Bebeto Perez M.D., 76575 414.9 [employer] AT [facility], [facility] 401.9 272.4 V72.81 Office Visit 09/02/2013 2:45p [employer] [facility] Of Bebeto Perez M.D., 84739 414.9 [employer] AT [facility], [facility] 401.9 272.4 Office Visit 02/11/2013 3:30p [employer] [facility] Of Bebeto Perez M.D., 94285 414.9 [employer] AT [facility], [facility] 401.9 Office Visit 09/17/2012 10:10a [facility] Internal Medicine Jill Plata M.D. 92347 244.0 - Kimberly 787.02 401.9 311 799.81 Office Visit 08/05/2012 10:30a [facility] Internal Medicine Jill Plata 10691 250.02 - Kimberly Travis 244.0 700 787.02 733.90 401.9 V04.89 Office Visit 06/18/2012 12:10p [facility] Internal Medicine Jill Plata 03983 250.02 - Kimberly Travis 311 781.91 Office Visit 05/19/2012 10:00a [facility] Internal Medicine Jill Plata 73809 250.02 - Kimberly Travis 311 244.0 782.3 327.02 Office Visit 04/10/2012 10:30a [facility] Internal Medicine Jill Plata 85687 250.02 - Kimberly Travis 272.2 780.52 V10.87 244.0 735.4 Office Visit 03/25/2012 10:00a [facility] Internal Medicine Jill Plata, 29999 250.02 - Kimberly Travis 311 401.9 414.01 272.2 780.52 278.00 Office Visit 10/09/2011 1:45p Orthopedic Services Quincy Carrillo 24686 812.03 Of Nik VeraPTrinaATrina-C 812.09 Office Visit 09/21/2011 9:00a [facility] Services Shanique Adorno 06038 812.00 Of Richard Travis Office Visit 09/18/2011 9:00a [facility] Aldair Fernandes M.D. 96051 812.09 Of Richard 812.00 Office Visit 09/06/2011 9:30a [facility] Quincy Carrillo 07010 812.09 Of Richard Monroy R.P.A.-C 812.00 Plan of Care Future Appointment(s):09/30/2018 8:45 am - Samy Collins MD at [facility].09/16/2018 - Samy Collins MDS82.842D Displ bimalleol fx l low leg, subs for clos fx w janeth healFollow up:Follow Up: as scheduled
--- OUTSIDE RECORDS SUMMARY | 2018-09-18 14:11 | XMS REPORT ---
:1945 External Reference #:[id number] Author Organization [facility] Address [address] [place] [address] [place] [address] Phone [phone] Care Team Providers Name Role Phone Sade Gordon MD Primary Care Physician Unavailable Payers Type Date Identification Numbers Payment Provider Subscriber Medicare Primary Policy Number: [id number] Medicare Taylor J Edis PayID: [id number] [address] [place] [address] Medimcewen Part B Effective: 2000 Policy Number: Medicare Taylor J Edis [id number] Expires: 2018 PayID: [id number] [address] [place] [address] Medigap Part B Policy Number: [id number] Medicaid Taylor Kristine Randhawa PayID: [id number] [address] [place] [address] Commercial Effective: 2015 Policy Number: 100% [facility] [employer] Taylor J Edis Expires: 2017 PayID: [id number] [address] Problems Date Description Provider Status Onset: 03/26/2012 [...] Chronic ischemic heart disease Bebeto Perez M.D., [facility], Active [facility] Onset: 09/02/2013 Essential hypertension Bebeto Perez M.D., [facility], Active [facility] Onset: 09/02/2013 Hyperlipidemia Bebeto Perez M.D., [facility], Active [facility] Onset: 03/09/2014 Preoperative cardiovascular Bebeto Perez M.D., [facility], Active examination [facility] Onset: 09/22/2015 Chronic ischemic heart disease, Bebeto Perez M.D., [facility], Active unspecified [facility] Onset: 02/29/2016 Heart murmur Bebeto Perez M.D., [facility], Active [facility] Onset: 02/29/2016 Mitral valve disorder Bebeto Perez M.D., [facility], Active [facility] Onset: 03/19/2016 Dyspnea Bebeto Perez M.D., [facility], Active [facility] Onset: 08/10/2016 Full respiratory system Soledad Mcclain MD Active examination Onset: 08/10/2016 Emphysema, unspecified Soledad Mcclain MD Active Onset: 06/07/2017 Cardiac pacemaker in situ Dalia Luke M.D. Active Onset: 07/11/2017 Chronic diastolic heart failure Bebeto Perez M.D., [facility], Active [facility] Onset: 09/11/2017 Unspecified diastolic (congestive) Bebeto Perez M.D., [facility] , Active heart failure [facility] Onset: 12/30/2017 Chest pain Bebeto Perez M.D., [facility], Active [facility] Onset: 04/16/2018 Neurogenic claudication [...] Bebeto Bisulfate s every day Thaddeus Perez, [facility], [facility] Isosorbide 03/09 Active Tablets ER 60mg 90tab 1 by mouth Bbeeto Mononitrate 24HR s every day Thaddeus Perez, [facility], [facility] Nitrostat 06/18 Active Tablets Sub 0.4mg 25tab 1 sl Pedro S. /2012 s q5mins x3 Mitchell, as needed DO [facility] for chest pain, if no relief [...] 12HR bs twice a Flork, roland Travis, [facility], [facility] BD Pen Zoe 05/05 Active Misc 31G X 8 540un [...] Gabapentin Active Tablets 600mg 1 tab po [place], tid prn MD Clyde Levothyroxine Active Tablets 200mcg 30tab 1 by mouth 244.0 Unknown Sodium / s every day Aspirin Active Tablets 81mg 1 by mouth Unknown /0000 every day Losartan Active Tablets 100mg 1 by mouth Unknown Potassium / every day Bupropion HCL ER Active Tablets ER 300mg one tab Yellow Medicine, (XL) / 24HR daily MD Clyde Amitiza Active Capsules 8mcg twice Carlos, / daily EUSEBIO Yun Crestor Active Tablets [...] 60tab 1 by mouth s every 6 [place], - hours as M.D. 06/13 pain Sulfamethoxazole/ 08/14 Hx Tablets 800-160mg 60tab 1 by mouth M86.172 Aj Trimethoprim s twice D. - daily [place], 07/27 Kavin.Elizabeth Hydrochlorothiazi 06/30 Hx Tablets 25mg 30tab one pill a Bebeto duval s day Cindy Perez M.D., 06/03 [facility], [facility] Clopidogrel 03/19 Hx Tablets 300mg 1tabs take one R06.02 Bebeto Bisulfate today Cindy Perez M.D., 08/26 [facility], [facility] [place] 08/10 Hx Tablets 5-325mg 30tab 1 by mouth Romeo s twice a Michael, - day as Thaddeus 02/25 pain Atorvastatin 01/24 Hx Tablets 80mg 90tab 1 by mouth Bebeto Christianson s every day Cindy Perez M.D., 07/27 [facility], [facility] Clopidogrel 05/12 Hx Tablets 75mg 90tab 1 tab by Bebeto Bisulfate s mouth Chris, - every day M.DTrina, 02/25 [facility] Naproxen 12/02 Hx Tablets 500mg 60tab 1 po bid s prn Cindy Renae M.D. 03/21 [place] 12/02 Hx Tablets 5-325mg 60tab 1-2 tabs s po q4-6 h [place], - prn pain Kavin.DTrina 03/08 Aspirin 09/02 Hx Tablets 81mg 1 po qd Cindy Perez M.D., 12/02 [facility], [facility] Clopidogrel 03/25 Hx Tablets 75mg 90tab 1 tab by Bebeto s mouth Chris, - every day M.DTrina, 05/12 [facility], [facility] Onetouch Ultra 09/22 Hx Strips 450un [...] Aerosol 18-103mcg 1unit 2 puff q 6 [place] /2011 / s hours as Chad knowles [...] Take One 244.0 Jill s Tablet By Cinyd Plata M.D. 06/24 Every Day Levothyroxine 04/20 Hx Tablets 175mcg 40tab 1 po qod Jill Cindy Rivera M.D. 06/24 Ambien 04/10 Hx Tablets 10mg 30tab 1 po qhs 780.52 s prn Cindy Sharma insomnia Thaddeus 05/19 Plavix 03/25 Hx Tablets 75mg 90tab 1 po qd Cindy Townsend M.D., 03/25 [facility] Ambien 03/25 Hx Tablets 5mg [...] mouth Stefek, - every day M.D., 03/15 [facility] Aspirin Hx Tablets DR 325mg 1 po qd Unknown / - 09/02 Isosorbide Hx Tablets ER 30mg 90tab 1 tab by Bebeto Mononitrate ER /0000 24HR s mouth Stefek, - every day M.D., 03/09 [facility] Fish Oil Hx Capsules 1000mg 1 po bid Unknown Burp-Less /0000 - 12/02 Micardis HCT Hx Tablets 80-25mg 90tab 1 tab by Bebeto /0000 s mouth Stefek, - every day M.D., 06/30 [facility] Micardis HCT Hx Tablets 80-12.5mg 90tab [...] 00/00 Hx Tablets 50mg 1 tab po Yellow Medicine, /0000 qid Cindy Tang MD 03/21 Escitalopram Hx Tablets 20mg 1 tab po [place], Oxalate /0000 daily Cindy Tang MD 09/21 [...] CPT Code Status Date Vaccine Lot # [id number] Given 08/05/2012 Zoster (Zostavax) [id number] Given 07/11/2012 Pneumonia Vaccine 37262 Given 07/11/2012 Influenza Virus 3Yrs & Over 00856 Ordered 07/11/2012 Pneumonia Vaccine Vital Signs Date Vital Result Comment 09/05/2018 Heart Rate 68 /min BP Systolic [...] 04/10/2012 Hemoglobin A1c 7.5 High 5-7 1 Table Worker Packager: [id number] 2 Table Worker Packager: [id number] 3 Table Worker Packager: [id number] 4 Table Worker Packager: [id number] 5 Because ethnic data is not always [...] and in selective patients <6.0%.Please refer to [place] [employer] Diabetic care guidelines for further information. 16 FASTING 17 Test Performed by: [place] [address] Monitoring Specialist: Luis Escobedo II, M.D., Ph.D. 18 ADDITIONAL INFORMATION This test was developed and its performance characteristics determined by [facility] in a manner consistent with CLIA requirements. This test has not been cleared or approved by the U.S. Food and Drug Administration. Test Performed by: [place] [address] Monitoring Specialist: Luis Escobedo II, M.D., Ph.D. 19 Table Worker Packager: [id number] MOLIVIATIS GITA 20 Table Worker Packager: [id number] MOLIVIATIS GITA 21 Table Worker Packager: [id number] MOLIVIATIS GITA 22 Table Worker Packager: [id number] MOLIVIATIS GITA 23 Table Worker Packager: [id number] MOLIVIATIS GITA 24 Table Worker Packager: [id number] MEIXELL ROMELIA 25 Table Worker Packager: [id number] MEIXELL ROMELIA 26 Table Worker Packager: [id number] PARLETT EBONY R 27 Table Worker Packager: [id number] PARLETT EBONY R 28 Table Worker Packager: [id number] MOLIVIATIS GITA 29 Table Worker Packager: [id number] MOLIVIATIS GITA 30 Acute inflammation: >10.00 31 Reference ranges based on room air. 32 Table Worker Packager: [id number] MOLIVIATIS GITA 33 Please note: The following [...] 0.03 ng/mL Not supportive of diagnosis of GA 0.03 - 0.50 ng/mL Indeterminate: suggest serial studies if clinically indicated. Greater than 0.5 ng/mL Consistent with diagnosis of GA 36 Verbal to CRYSTAL by TORREY at 0928 on 03/12/14.~Results read [...] IN SELECTIVE PATIENTS <6.0%. PLEASE REFER TO [place] [employer] DIABETIC CARE GUIDELINES FOR FURTHER [...] normal population are 25-80 Test Performed by: [facility] [address] [address] Monitoring Specialist: Pan Maravilla III, M.D. 48 CHOLESTEROL INTERPRETATION: [...] dialysis) Procedures Date CPT Code Description Status 07/10/2018 72616 ORIF Open TX Bimalleolar Ankle FX Includes Internal Completed Fixation 07/10/2018 86656 ORIF Open TX Bimalleolar Ankle FX Includes Internal Completed Fixation 06/09/2018 01903 Pace Maker Eval W/Iterative Adjment Dual Lead Completed 06/09/2018 99444 Pace Maker Eval W/Iterative Adjment Dual Lead Completed 05/06/2018 59386 Grijalva/Facet/Foraminotomy;Vertebral Segment; Lumbar Completed 05/06/2018 95628 Grijalva/Facet/Foraminotomy;Vertebral Segment; Lumbar Completed 04/30/2018 35318 EKG Tracing & Interpretation Completed 12/30/2017 23008 EKG Tracing & Interpretation Completed 12/09/2017 33963 Treadmill Interp/Report Only Completed 12/09/2017 03422 Stress Test Supervsn W/Out I/R Completed 12/09/2017 19438 EKG, Interpretation Only Completed 12/08/2017 38716 EKG, Interpretation Only Completed 12/06/2017 18672 Pace Maker Eval W/Iterative Adjment Dual Lead Completed 12/06/2017 22833 Pace Maker Eval W/Iterative Adjment Dual Lead Completed 09/11/2017 56584 EKG Tracing & Interpretation Completed 08/30/2017 03017 Pace Maker Eval W/Iterative Adjment Dual Lead Completed 08/30/2017 71621 Pace Maker Eval W/Iterative Adjment Dual Lead Completed 07/30/2017 26637 Pace Maker Eval W/Iterative Adjment Dual Lead Completed 07/09/2017 48197 Icd Eval Sing,Dual,Multi Lead Remote Recpt Transm Tech Completed Rev Tech S 07/09/2017 91964 Pacemaker Check Remote Up To 90Days Completed Single,Dual,Multiple Lead 06/01/2017 00435 EKG, Interpretation Only Completed 05/31/2017 36526 Perm Pacemaker Av Sequential Atrial And Ventricular Completed 05/29/2017 24115 ECHO Transthorasic Realtime 2D W Doppler & Color Flow Completed Hosp 05/29/2017 58144 EKG, Interpretation Only Completed 08/28/2016 25860 Apply Total Contact Leg Cast Completed 08/24/2016 38810 Hyperbaric Oxygen Therapy By Physician Completed 08/23/2016 67093 Hyperbaric Oxygen Therapy By Physician Completed 08/22/2016 25780 Hyperbaric Oxygen Therapy By Physician Completed 08/21/2016 57456 Hyperbaric Oxygen Therapy By Physician Completed 08/21/2016 43977 Removal Devitalization Tissue Wound Less Than Equal 20 Completed Square CM 08/14/2016 90078 Removal Devitalization Tissue Wound Less Than Equal 20 Completed Square 08/10/2016 38335 Pulmonary Function><Bronchodil Completed 08/10/2016 07488 Plethysmography Determination Lung Volumes & Per Airway Completed [facility] 08/10/2016 66829 Diffusing Capacity Completed 08/09/2016 88523 Apply Total Contact Leg Cast Completed 08/07/2016 14088 Removal Devitalization Tissue Wound Less Than Equal 20 Completed Square CM 08/02/2016 57695 Removal Devitalization Tissue Wound Less Than Equal 20 Completed Square CM 07/24/2016 52914 Removal Devitalization Tissue Wound Less Than Equal 20 Completed Square 03/14/2016 27503 ECHO Transthorasic Realtime 2D W Doppler & Color Flow Completed Hosp 02/28/2016 28820 Treadmill Interp/Report Only Completed 02/28/2016 85696 Stress Test Supervsn W/Out I/R Completed 02/27/2016 76860 EKG Tracing & Interpretation Completed 09/22/2015 60732 EKG Tracing & Interpretation Completed 08/10/2015 52216 FX Metatarsal Care Completed 09/24/2014 92103 EKG Tracing & Interpretation Completed 03/17/2014 14972 ECHO Transthorasic Realtime 2D W Doppler & Color Flow Completed Hosp 03/17/2014 27194 Treadmill Interp/Report Only Completed 03/17/2014 59929 Stress Test Supervsn W/Out I/R Completed 03/09/2014 62754 EKG Tracing & Interpretation Completed 01/01/2014 08345 Rad Exam; Foot Limited Completed 01/01/2014 88224 Rad Exam; Foot Limited Completed 12/09/2013 10060 Rad Exam; Foot Limited Completed 12/02/2013 12320 FX Metatarsal Care Completed 12/02/2013 27682 FX Metatarsal Care Completed 09/02/2013 16546 EKG Tracing & Interpretation Completed 02/11/2013 41331 EKG Tracing & Interpretation Completed 06/20/2012 Bone Mineral Density Test Completed 04/15/2012 Diabetic Foot Exam Completed 04/03/2012 Diabetic Retinal Eye Exam Completed 10/09/2011 40634 Rad Shoulder Comp, Min. 2 Views Completed 10/09/2011 10206 Rad Shoulder Comp, Min. 2 Views Completed 10/09/2011 27001 Rad Shoulder Comp, Min. 2 Views Completed 09/18/2011 57813 Closed trtmt prox humeral fx Completed 09/06/2011 77253 Rad Shoulder Comp, Min. 2 Views Completed 09/06/2011 00549 Closed trtmt prox humeral fx Completed 06/13/2011 55746 Rad Exam; Ankle Comp Completed 05/29/2011 60526 CLSD TX Distal Fib FX (Lateral Malleolus) w/o Completed manipulation Encounters Type Date Location Provider CPT E/M Dx Office Visit 07/15/2018 [facility] 09519 S82.842A 3:35p Assoc, Hospitalists BIRDIE Duran J44.9 Z79.4 E11.9 I10 Office Visit 07/14/2018 3:35p [facility] 73023 S82.842A Assoc, Hospitalists BIRDIE Duran J44.9 E11.9 I10 Office Visit 07/13/2018 3:34p [facility] 30073 S82.842A Assoc, Hospitalists BIRDIE Duran E11.9 I10 J44.9 Office Visit 07/12/2018 3:34p [facility] 43107 S82.842A Assoc, Hospitalists BIRIDE Duran R09.02 J44.9 E11.9 I10 Office Visit 07/11/2018 3:33p [facility] Chapman, 77943 S82.842A Assoc, Hospitalists GOLF COURSE MECHANIC E11.9 I10 E78.5 Office Visit 07/10/2018 3:33p [facility], 37612 S82.842A Assoc, Hospitalists GOLF COURSE MECHANIC R53.1 E11.9 I10 Office Visit 07/09[facility]2018 [facility] [address]505 S82.842A Assoc, Hospitalists GOLF COURSE MECHANIC N17.9 E87.5 E83.42 E11.9 I10 Office Visit 07/09/2018 1:58p [place] [address] S82.842A Of [facility] Office Visit 05/14/2018 9:19a [facility] Laura Augustin, 90610 E11.9 Assoc, Hospitalists Thaddeus B95.2 N39.0 Office Visit 05/13/2018 9:18a [facility] Laura Augustin, 18626 E11.9 Hospitalists M.D. N39.0 B95.2 Office Visit 05/12/2018 9:07a [facility] Laura Augustin, 99113 E11.9 Hospitalists M.D. N17.9 E87.1 B95.2 N39.0 J18.9 Office Visit 05/11/2018 1:15p [facility] Laura Augustin, 27031 M54.5 Hospitalists M.D. E87.1 N39.0 B95.2 Office Visit 05/10/2018 9:06a [facility] [address] E11.9 Hospitalists N39.0 M79.662 Office Visit 05/08/2018 9:06a [facility] Luis Alexander, 15297 M79.662 Hospitalists [place] E11.9 I25.10 Z98.1 Office Visit 04/30/2018 3:20p [facility] Molly Perez M.D., 64712 Z01.810 Operations Officer Trust Department AT [facility] Z95.0 I25.10 M48.062 Office Visit 04/16/2018 1:50p [facility] Andrea Diez, 40937 M48.062 Of Harrison Travis Office Visit 03/26/2018 1:45p [facility] Services Susie Kan PA-C 23820 M48.062 Of [facility] M51.36 R09.89 Z95.0 Office Visit 12/30/2017 11:20a [facility] Molly Perez M.D., 32203 R07.9 Operations Officer Trust Department AT [facility] I10 E78.2 I25.10 Office Visit 12/09/2017 3:14p [facility] Molly Perez M.D., 42588 Operations Officer Trust Department AT [facility] Office Visit 10/01/2017 10:30a [facility] [place] [address] I10 Operations Officer Trust Department AT [facility] Office Visit 09/30/2017 10:00a [facility] Molly Perez M.D., 72052 I10 Operations Officer Trust Department AT [facility] Office Visit 09/11/2017 11:40a [facility] Of Bebeto Perez M.D., 57039 R06.02 Operations Officer Trust Department AT [facility] Z95.0 I25.9 E78.5 I50.30 I10 Office Visit 07/11/2017 3:40p [facility] Of Bebeto Perez M.D., 55642 Z95.0 Operations Officer Trust Department AT [facility] I25.10 I50.32 R06.02 Office Visit 06/07/2017 11:30a [facility] Of Dalia Luke M.D. 38166 R00.1 [facility] Z95.0 I25.10 E16.2 I50.9 Office Visit 06/01/2017 2:08p [facility], Brandi Allison, 25175 R00.1 Hospitalists MNiki I50.33 I25.10 E11.9 Office Visit 05/31/2017 2:06p [facility], Brandi Allison, 05263 R00.1 Hospitalists M.DTrina I25.10 I50.33 E11.9 Office Visit 05/30/2017 2:06p [facility], Brandi Allison, 02961 R00.1 Hospitalists M.DTrina I25.10 I50.33 E11.9 Office Visit 05/29/2017 2:05p [facility], 50537 R00.1 Assoc, Hospitalists MNiki I25.10 I50.33 E11.9 Office Visit 05/29/2017 3:46p [facility] Of Dalia Luke M.D. 80775 Z95.0 [facility] I49.5 I50.30 Office Visit 09/26/2016 2:00p [facility] Of [facility] Bebeto Perez M.D., 37379 I10 AT [facility] I25.10 E78.2 E66.9 Office Visit 09/11/2016 8:26a [facility] Care Center AT Andrea Chen, 23997 E11.621 [facility] Thaddeus Office Visit 08/28/2016 8:50a [facility] Aj Johnson 59601 E11.621 Infectious Diseases Thaddeus Calzada Office Visit 08/15/2016 12:00p [facility] [place] [address] Z01.811 Services Of [facility] Office Visit 08/14/2016 11:30a [facility] Aj Johnson 63159 M86.172 Infectious Diseases Thaddeus Calzada E11.40 Office Visit 08/10/2016 7:30a [facility] [place] [address] J43.9 Services Of [facility] Z01.811 E11.621 L97.529 Office Visit 07/24/2016 11:33a Wound Care Center AT Andrea KevinTrina MulliganHardee, 93324 E11.621 [facility] Thaddeus Office Visit 03/19/2016 3:00p [facility] Molly Perez M.D., 15817 I34.0 Operations Officer Trust Department AT [facility] I25.10 I34.2 R06.02 Office Visit 03/12/2016 2:40p [facility], Kim Hernandez N.P. 61783 R07.9 Hospitalists I25.10 K21.9 Office Visit 02/29/2016 9:40a [facility] Molly Perez M.D., 31800 I25.9 [facility] AT [facility] I34.0 Office Visit 02/27/2016 10:40a [facility] Of [facility] Bebeto Perez M.D., 97482 I10 AT [facility] E78.5 I25.9 Office Visit 09/22/2015 11:00a [facility] Molly Perez M.D., 11965 I25.9 [facility] AT [facility] I10 E78.5 E66.9 Office Visit 09/24/2014 3:20p [facility] Molly Perez M.D., 16946 414.9 Operations Officer Trust Department AT [facility] 401.9 272.4 Office Visit 03/22/2014 3:15p [facility] Molly Perez M.D., 23092 V72.81 Operations Officer Trust Department AT [facility] 414.9 401.9 272.4 Office Visit 03/09/2014 3:30p [facility] Of Bebeto Perez M.D., 46694 414.9 [facility] AT [facility], [facility] 401.9 272.4 V72.81 Office Visit 09/02/2013 2:45p [facility] Of Bebeto Perez M.D., 53591 414.9 [facility] AT [facility], [facility] 401.9 272.4 Office Visit 02/11/2013 3:30p [facility] Of Bebeto Perez M.D., 20790 414.9 [facility] AT [facility], [facility] 401.9 Office Visit 09/17/2012 10:10a [facility] Internal Medicine Jill Plata M.D. 83811 244.0 - [place] 787.02 401.9 311 799.81 Office Visit 08/05/2012 10:30a [facility] Internal Medicine Jill Plata 18991 250.02 - [place] Travis 244.0 700 787.02 733.90 401.9 V04.89 Office Visit 06/18/2012 12:10p [facility] Internal Medicine Jill Plata 75271 250.02 - [place] Kavin.Elizabeth 311 781.91 Office Visit 05/19/2012 10:00a [facility] Internal Medicine Jill Plata 77623 250.02 - [place] Thaddeus 311 244.0 782.3 327.02 Office Visit 04/10/2012 10:30a [facility] Internal Medicine Jill Plata 98587 250.02 - Kimberly Travis 272.2 780.52 V10.87 244.0 735.4 Office Visit 03/25/2012 10:00a [facility] Internal Medicine Jill Plata 93484 250.02 - [place] 311 401.9 414.01 272.2 780.52 278.00 Office Visit 10/09/2011 1:45p [facility] Quincy Carrillo 60934 812.03 Of Reuben Vera 812.09 Office Visit 09/21/2011 9:00a [facility] Shanique Adorno, 04699 812.00 Of Richard Travis Office Visit 09/18/2011 9:00a [facility] Aldair Fernandes M.D. 80168 812.09 Of Richard 812.00 Office Visit 09/06/2011 9:30a [facility] Quincy Carrillo 16305 812.09 Of Reuben Vera 812.00 Plan of Care Future Appointment(s):09/30/2018 8:45 am - Samy Collins MD at [facility].09/05/2018 - Samy Collins, [id number] Displaced bimalleolar fracture of left lower leg, initNew Xrays:Ankle Left 3+VWSFollow up:Follow Up: 4 megkdF53.89 Encounter for other specified surgical aftercare
--- OUTSIDE RECORDS SUMMARY | 2018-09-18 14:11 | XMS REPORT ---
:1945 External Reference #:[id number] Author Organization [place] Address [address] [place] [address] [place] [address] Phone [phone] Care Team Providers Name Role Phone Sade Gordon MD Primary Care Physician Unavailable Payers Type Date Identification Numbers Payment Provider Subscriber Medicare Primary Policy Number: [id number] Medicare Taylor Carmona Edis PayID: [id number] [address] [place] [address] Mediwalsh Part B Effective: 2000 Policy Number: Medicare Taylor J Edis [id number] Expires: 2018 PayID: [id number] [address] [place] [address] Medigap Part B Policy Number: [id number] Medicaid Taylor J Edis PayID: [id number] [address] [place] [address] Commercial Effective: 2015 Policy Number: 100% [employer] Taylor J Edis Expires: 2017 PayID: [id number] [address] Problems Date Description Provider Status Onset: 03/26/2012 [...] Chronic ischemic heart disease Bebeto Perez M.D., [facility], Active [facility] Onset: 09/02/2013 Essential hypertension Bebeto Perez M.D., [facility], Active [facility] Onset: 09/02/2013 Hyperlipidemia Bebeto Perez M.D., [facility], Active [facility] Onset: 03/09/2014 Preoperative cardiovascular Bebeto Perez M.D., [facility], Active examination [facility] Onset: 09/22/2015 Chronic ischemic heart disease, Bebeto Perez M.D., [facility], Active unspecified [facility] Onset: 02/29/2016 Heart murmur Bebeto Perez M.D., [facility], Active [facility] Onset: 02/29/2016 Mitral valve disorder Bebeto Perez M.D., [facility], Active [facility] Onset: 03/19/2016 Dyspnea Bebeto Perez M.D., [facility], Active [facility] Onset: 08/10/2016 Full respiratory system Soledad Mcclain MD Active examination Onset: 08/10/2016 Emphysema, unspecified Soledad Mcclain MD Active Onset: 06/07/2017 Cardiac pacemaker in situ Dalia Luke M.D. Active Onset: 07/11/2017 Chronic diastolic heart failure Bebeto Perez M.D., [facility], Active [facility] Onset: 09/11/2017 Unspecified diastolic (congestive) Bebeto Perez M.D., [facility] , Active heart failure [facility] Onset: 12/30/2017 Chest pain Bebeto Perez M.D., [facility], Active [facility] Onset: 04/16/2018 Neurogenic claudication Andrea [...] Bebeto Bisulfate s every day Thaddeus Perez, [facility], [facility] Isosorbide 03/09 Active Tablets ER 60mg 90tab 1 by mouth Bebeto Mononitrate 24HR s every day Thaddeus Perez, [facility], [facility] Nitrostat 06/18 Active Tablets Sub 0.4mg 25tab 1 sl Pedro S. /2012 s q5mins x3 Mitchell, as needed DO [facility] for chest pain, if no relief call [...] 12HR bs twice a Flork, roland Travis, [facility], [facility] BD Pen [place] 05/05 Active Misc 31G X 8 540un [...] Gabapentin Active Tablets 600mg 1 tab po [place], tid prn MD Clyde Levothyroxine Active Tablets 200mcg 30tab 1 by mouth 244.0 Unknown Sodium / s every day Aspirin Active Tablets 81mg 1 by mouth Unknown /0000 every day Losartan Active Tablets 100mg 1 by mouth Unknown Potassium / every day Bupropion HCL ER Active Tablets ER 300mg one tab [place], (XL) / 24HR daily MD lCyde Amitiza Active Capsules 8mcg twice Clarkson, / daily EUSEBIO Yun Crestor Active Tablets [...] 60tab 1 by mouth s every 6 Adkins, - hours as M.D. 06/13 pain Sulfamethoxazole/ 08/14 Hx Tablets 800-160mg 60tab 1 by mouth M86.172 Aj Trimethoprim s twice D. - daily Macqueen, 07/27 Kavin.Elizabeth Hydrochlorothiazi 06/30 Hx Tablets 25mg 30tab one pill a Bebeto duval s day Cindy Perez M.D., 06/03 [facility], [facility] Clopidogrel 03/19 Hx Tablets 300mg 1tabs take one R06.02 Bebeto Bisulfate today Cindy Perez M.D., 08/26 [facility], [facility] Lueders 08/10 Hx Tablets 5-325mg 30tab 1 by mouth Romeo s twice a Michael, - day as Thaddeus 02/25 pain Atorvastatin 01/24 Hx Tablets 80mg 90tab 1 by mouth Bebeto Christianson s every day Cindy Perez M.D., 07/27 [facility], [facility] Clopidogrel 05/12 Hx Tablets 75mg 90tab 1 tab by Bebeto Bisulfate s mouth Chris, - every day M.DTrina, 02/25 [facility], [facility] Naproxen 12/02 Hx Tablets 500mg 60tab 1 po bid s prn Cindy Renae M.D. 03/21 [place] 12/02 Hx Tablets 5-325mg 60tab 1-2 tabs s po q4-6 h Batool, - prn pain Kavin.DTrina 03/08 Aspirin 09/02 Hx Tablets 81mg 1 po qd Cindy Perez M.D., 12/02 [facility], [facility] Clopidogrel 03/25 Hx Tablets 75mg 90tab 1 tab by Bebeto s mouth Chris, - every day M.DTrina, 05/12 [facility], [facility] Onetouch Ultra 09/22 Hx Strips 450un [...] Aerosol 18-103mcg 1unit 2 puff q 6 [place] /2011 / s hours as Chad knowles [...] 1 po qd Cindy Townsend M.D., 03/25 [facility] Ambien 03/25 Hx Tablets 5mg 30tab [...] mouth Stefek, - every day M.D., 03/15 [facility] Aspirin Hx Tablets DR 325mg 1 po qd Unknown / - 09/02 Isosorbide Hx Tablets ER 30mg 90tab 1 tab by Bebeto Mononitrate ER /0000 24HR s mouth Stefek, - every day M.D., 03/09 [facility] Fish Oil Hx Capsules 1000mg 1 po bid Unknown Burp-Less /0000 - 12/02 Micardis HCT Hx Tablets 80-25mg 90tab 1 tab by Bebeto /0000 s mouth Stefek, - every day M.D., 06/30 [facility] Micardis HCT Hx Tablets 80-12.5mg 90tab [...] 00/00 Hx Tablets 50mg 1 tab po [place], /0000 qid Cindy Tang MD 03/21 Escitalopram Hx Tablets 20mg 1 tab po [place], Oxalate /0000 daily Cindy Tang MD 09/21 [...] CPT Code Status Date Vaccine Lot # [id number] Given 08/05/2012 Zoster (Zostavax) [id number] Given 07/11/2012 Pneumonia Vaccine 46249 Given 07/11/2012 Influenza Virus 3Yrs & Over [address] Ordered 07/11/2012 Pneumonia Vaccine Vital Signs Date Vital Result Comment 09/09/2018 Height 67 inches 5'7" Weight 240.00 [...] Index) 35.7 kg/m2 Ejection Fraction 55-60% echo 7/19/17 09/11/2017 Height 67 inches 5'7" Weight 222.00 [...] 04/10/2012 Hemoglobin A1c 7.5 High 5-7 1 Plate Mill Hand: [id number] 2 Plate Mill Hand: [id number] 3 Plate Mill Hand: [id number] 4 Plate Mill Hand: [id number] 5 Because ethnic data is not always [...] and in selective patients <6.0%.Please refer to [place] [employer] Diabetic care guidelines for further information. 16 FASTING 17 Test Performed by: [facility] - [address] [address] Hvac Installer: Luis Escobedo II, M.D., Ph.D. 18 ADDITIONAL INFORMATION This test was developed and its performance characteristics determined by [facility] in a manner consistent with CLIA requirements. This test has not been cleared or approved by the U.S. Food and Drug Administration. Test Performed by: [address] [address] Hvac Installer: Luis Escobedo II, M.D., Ph.D. 19 Plate Mill Hand: [id number] MOLIVIATIS GITA 20 Plate Mill Hand: [id number] MOLIVIATIS GITA 21 Plate Mill Hand: [id number] MOLIVIATIS GITA 22 Plate Mill Hand: [id number] MOLIVIATIS GITA 23 Plate Mill Hand: [id number] MOLIVIATIS GITA 24 Plate Mill Hand: [id number] MEIXELL ROMELIA 25 Plate Mill Hand: [id number] MEIXELL ROMELIA 26 Plate Mill Hand: [id number] PARLETT EBONY R 27 Plate Mill Hand: [id number] PARLETT EBONY R 28 Plate Mill Hand: [id number] MOLIVIATIS GITA 29 Plate Mill Hand: [id number] MOLIVIATIS GITA 30 Acute inflammation: >10.00 31 Reference ranges based on room air. 32 Plate Mill Hand: [id number] MOLIVIATIS GITA 33 Please note: The following [...] 0.03 ng/mL Not supportive of diagnosis of HI 0.03 - 0.50 ng/mL Indeterminate: suggest serial studies if clinically indicated. Greater than 0.5 ng/mL Consistent with diagnosis of HI 36 Verbal to WAI by TORREY at [...] IN SELECTIVE PATIENTS <6.0%. PLEASE REFER TO [place] [employer] DIABETIC CARE GUIDELINES FOR FURTHER INFORMATION. 43 MICROALBUMINURIA IN A RANDOM SAMPLE IS DEFINED : MICROALBUMIN/CREATININE RATIO OF 30-299 ug/mg. . 44 A metabolite of Naproxen, O-desmethylnaproxen, has been shown to interfere with the Jendrjordanik-Tunnelton method for measuring total bilirubin. Samples from patients who have taken Naproxen have shown spurious elevation in total bilirubin levels. 45 Please note updated reference range, effective 06/01/10 46 Please note change in reference range effective 08 . 47 -- REFERENCE VALUE -- 25-HYDROXY D TOTAL (D2+D3) Optimum levels in the normal population are 25-80 Test Performed by: [address] [address] Hvac Installer: Pan Maravilla III, M.D. 48 CHOLESTEROL INTERPRETATION: [...] has been shown to interfere with the Jendrassik-Tunnelton method for measuring total bilirubin. Samples from [...] Procedures Date CPT Code Description Status 07/10/2018 40234 ORIF Open TX Bimalleolar Ankle FX Includes Internal Completed Fixation 07/10/2018 39264 ORIF Open TX Bimalleolar Ankle FX Includes Internal Completed Fixation 06/09/2018 77575 Pace Maker Eval W/Iterative Adjment Dual Lead Completed 06/09/2018 51477 Pace Maker Eval W/Iterative Adjment Dual Lead Completed 05/06/2018 10149 Grijalva/Facet/Foraminotomy;Vertebral Segment; Lumbar Completed 05/06/2018 77201 Grijalva/Facet/Foraminotomy;Vertebral Segment; Lumbar Completed 04/30/2018 91543 EKG Tracing & Interpretation Completed 12/30/2017 49315 EKG Tracing & Interpretation Completed 12/09/2017 32348 Treadmill Interp/Report Only Completed 12/09/2017 41848 Stress Test Supervsn W/Out I/R Completed 12/09/2017 10223 EKG, Interpretation Only Completed 12/08/2017 64471 EKG, Interpretation Only Completed 12/06/2017 02907 Pace Maker Eval W/Iterative Adjment Dual Lead Completed 12/06/2017 82010 Pace Maker Eval W/Iterative Adjment Dual Lead Completed 09/11/2017 26300 EKG Tracing & Interpretation Completed 08/30/2017 42760 Pace Maker Eval W/Iterative Adjment Dual Lead Completed 08/30/2017 04616 Pace Maker Eval W/Iterative Adjment Dual Lead Completed 07/30/2017 19306 Pace Maker Eval W/Iterative Adjment Dual Lead Completed 07/09/2017 84142 Icd Eval Sing,Dual,Multi Lead Remote Recpt Transm Tech Completed Rev Tech S 07/09/2017 61646 Pacemaker Check Remote Up To 90Days Completed Single,Dual,Multiple Lead 06/01/2017 76369 EKG, Interpretation Only Completed 05/31/2017 24770 Perm Pacemaker Av Sequential Atrial And Ventricular Completed 05/29/2017 27216 ECHO Transthorasic Realtime 2D W Doppler & Color Flow Completed Hosp 05/29/2017 76543 EKG, Interpretation Only Completed 08/28/2016 40685 Apply Total Contact Leg Cast Completed 08/24/2016 83522 Hyperbaric Oxygen Therapy By Physician Completed 08/23/2016 08364 Hyperbaric Oxygen Therapy By Physician Completed 08/22/2016 41686 Hyperbaric Oxygen Therapy By Physician Completed 08/21/2016 48437 Hyperbaric Oxygen Therapy By Physician Completed 08/21/2016 32661 Removal Devitalization Tissue Wound Less Than Equal 20 Completed Square CM 08/14/2016 43424 Removal Devitalization Tissue Wound Less Than Equal 20 Completed Square CM 08/10/2016 53880 Pulmonary Function><Bronchodil Completed 08/10/2016 08750 Plethysmography Determination Lung Volumes & Per Airway Completed Resist 08/10/2016 13776 Diffusing Capacity Completed 08/09/2016 24675 Apply Total Contact Leg Cast Completed 08/07/2016 75666 Removal Devitalization Tissue Wound Less Than Equal 20 Completed Square CM 08/02/2016 08795 Removal Devitalization Tissue Wound Less Than Equal 20 Completed Square CM 07/24/2016 60064 Removal Devitalization Tissue Wound Less Than Equal 20 Completed Square 03/14/2016 52107 ECHO Transthorasic Realtime 2D W Doppler & Color Flow Completed Hosp 02/28/2016 61882 Treadmill Interp/Report Only Completed 02/28/2016 88122 Stress Test Supervsn W/Out I/R Completed 02/27/2016 54779 EKG Tracing & Interpretation Completed 09/22/2015 53201 EKG Tracing & Interpretation Completed 08/10/2015 52878 FX Metatarsal Care Completed 09/24/2014 03063 EKG Tracing & Interpretation Completed 03/17/2014 92094 ECHO Transthorasic Realtime 2D W Doppler & Color Flow Completed Hosp 03/17/2014 28115 Treadmill Interp/Report Only Completed 03/17/2014 50453 Stress Test Supervsn W/Out I/R Completed 03/09/2014 43975 EKG Tracing & Interpretation Completed 01/01/2014 13429 Rad Exam; Foot Limited Completed 01/01/2014 86280 Rad Exam; Foot Limited Completed 12/09/2013 11059 Rad Exam; Foot Limited Completed 12/02/2013 60654 FX Metatarsal Care Completed 12/02/2013 54532 FX Metatarsal Care Completed 09/02/2013 00317 EKG Tracing & Interpretation Completed 02/11/2013 39722 EKG Tracing & Interpretation Completed 06/20/2012 Bone Mineral Density Test Completed 04/15/2012 Diabetic Foot Exam Completed 04/03/2012 Diabetic Retinal Eye Exam Completed 10/09/2011 70348 Rad Shoulder Comp, Min. 2 Views Completed 10/09/2011 61194 Rad Shoulder Comp, Min. 2 Views Completed 10/09/2011 40435 Rad Shoulder Comp, Min. 2 Views Completed 09/18/2011 06554 Closed trtmt prox humeral fx Completed 09/06/2011 06032 Rad Shoulder Comp, Min. 2 Views Completed 09/06/2011 80693 Closed trtmt prox humeral fx Completed 06/13/2011 00132 Rad Exam; Ankle Comp Completed 05/29/2011 37722 CLSD TX Distal Fib FX (Lateral Malleolus) w/o Completed manipulation Encounters Type Date Location Provider CPT E/M Dx Office Visit 07/15/2018 [facility] 23285 S82.842A 3:35p Assoc, Hospitalists BIRDIE Duran J44.9 Z79.4 E11.9 I10 Office Visit 07/14/2018 3:35p [facility] 82349 S82.842A Assoc, Hospitalists BIRDIE Duran J44.9 E11.9 I10 Office Visit 07/13/2018 3:34p [facility] 81925 S82.842A Assoc, Hospitalists BIRDIE Duran E11.9 I10 J44.9 Office Visit 07/12/2018 3:34p [facility] 93517 S82.842A Assoc, Hospitalists BIRDIE Duran R09.02 J44.9 E11.9 I10 Office Visit 07/11/2018 3:33p [facility], 68535 S82.842A Assoc, Hospitalists PUMP OPERATOR E11.9 I10 E78.5 Office Visit 07/10/2018 3:33p [facility], 42527 S82.842A Assoc, Hospitalists PUMP OPERATOR R53.1 E11.9 I10 Office Visit 07/09/2018 3:32p [facility], 58043 S82.842A Assoc, Hospitalists PUMP OPERATOR N17.9 E87.5 E83.42 E11.9 I10 Office Visit 07/09/2018 1:58p [place] [address] S82.842A Of [facility] Office Visit 05/14/2018 9:19a [facility] Laura Holderhn, 72337 E11.9 Assoc,pc Hospitalists M.D. B95.2 N39.0 Office Visit 05/13/2018 9:18a [facility],pc Laura Holderhn, 39507 E11.9 Hospitalists M.D. N39.0 B95.2 Office Visit 05/12/2018 9:07a [facility], Laura Holderhn, 80508 E11.9 Hospitalists M.DTrina N17.9 E87.1 B95.2 N39.0 J18.9 Office Visit 05/11/2018 1:15p [facility], Laura Charli, 09153 M54.5 Hospitalists M.DTrina E87.1 N39.0 B95.2 Office Visit 05/10/2018 9:06a [facility], [place] [address] E11.9 Hospitalists N39.0 M79.662 Office Visit 05/08/2018 9:06a [facility] Assoc,pc Luis Alexander, 43594 M79.662 Hospitalists [place] E11.9 I25.10 Z98.1 Office Visit 04/30/2018 3:20p [facility] Of Bebeto Perez M.D., 61430 Z01.810 Maple Sugar Maker AT [facility] Z95.0 I25.10 M48.062 Office Visit 04/16/2018 1:50p [facility] Andrea Diez, 77382 M48.062 Of [place] Travis Office Visit 03/26/2018 1:45p [facility]surgery Services SHANTANU SavageC 48448 M48.062 Of Maple Sugar Maker M51.36 R09.89 Z95.0 Office Visit 12/30/2017 11:20a [facility] Molly Perez M.D., 16410 R07.9 Maple Sugar Maker AT [facility] I10 E78.2 I25.10 Office Visit 12/09/2017 3:14p [facility] Molly Perez M.D., 79194 Maple Sugar Maker AT [facility], [facility] Office Visit 10/01/2017 10:30a [facility] [place] [address] I10 Maple Sugar Maker AT [facility] Office Visit 09/30/2017 10:00a [facility] Of Bebeto Perez M.D., 44623 I10 Maple Sugar Maker AT [facility], [facility] Office Visit 09/11/2017 11:40a [facility] Molly Perez M.D., 36760 R06.02 Maple Sugar Maker AT [facility], [facility] Z95.0 I25.9 E78.5 I50.30 I10 Office Visit 07/11/2017 3:40p [facility] Of Bebeto Perez M.D., 23028 Z95.0 Maple Sugar Maker AT [facility], [facility] I25.10 I50.32 R06.02 Office Visit 06/07/2017 11:30a [facility] Of Dalia Luke M.D. 16901 R00.1 [facility] Z95.0 I25.10 E16.2 I50.9 Office Visit 06/01/2017 2:08p [facility], Brandi Allison, 55237 R00.1 Hospitalists Thaddeus I50.33 I25.10 E11.9 Office Visit 05/31/2017 2:06p [facility], Brandi Allison, 27564 R00.1 Hospitalists Thaddeus I25.10 I50.33 E11.9 Office Visit 05/30/2017 2:06p [facility], Brandi Allison, 56676 R00.1 Hospitalists Thaddeus I25.10 I50.33 E11.9 Office Visit 05/29/2017 2:05[place] [address] R00.1 Assoc, Hospitalists Thaddeus I25.10 I50.33 E11.9 Office Visit 05/29/2017 3:46p [facility] Of Dalia Luke M.D. 79370 Z95.0 [facility] I49.5 I50.30 Office Visit 09/26/2016 2:00p [facility] Of [facility] Bebeto Perez M.D., 72934 I10 AT [facility], [facility] I25.10 E78.2 E66.9 Office Visit 09/11/2016 8:26a [facility] AT Andrea Chen, 34503 E11.621 [facility] M.D. Office Visit 08/28/2016 8:50a [facility] Devorah Johnson 85059 E11.621 Infectious Diseases Thaddeus Calzada Office Visit 08/15/2016 12:00p Pul[facility]ology [place] [address] Z01.811 Services Of [facility] Office Visit 08/14/2016 11:30a [facility] Devorah Johnson 83083 M86.172 Infectious Diseases Thaddeus Calzada E11.40 Office Visit 08/10/2016 7:30a [facility] [place] [address] J43.9 Services Of [facility] Z01.811 E11.621 L97.529 Office Visit 07/24/2016 11:33a [facility] AT Andrea Chen, 54336 E11.621 [facility] M.D. Office Visit 03/19/2016 3:00p [facility] Molly Perez M.D., 16662 I34.0 Maple Sugar Maker AT [facility], [facility] I25.10 I34.2 R06.02 Office Visit 03/12/2016 2:40p [facility] Ass, Bhaskar Mccartney.Drew. 56279 R07.9 Hospitalists I25.10 K21.9 Office Visit 02/29/2016 9:40a [facility] Molly Perez M.D., 64686 I25.9 [facility] AT [facility], [facility] I34.0 Office Visit 02/27/2016 10:40a [facility] Of [facility] Bebeto Perez M.D., 98434 I10 AT [facility], [facility] E78.5 I25.9 Office Visit 09/22/2015 11:00a [facility] Molly Perez M.D., 18247 I25.9 [facility] AT [facility], [facility] I10 E78.5 E66.9 Office Visit 09/24/2014 3:20p [facility] Molly Perez M.D., 33304 414.9 [facility] AT [facility], [facility] 401.9 272.4 Office Visit 03/22/2014 3:15p [facility] Of Bebeto Perez M.D., 48887 V72.81 Maple Sugar Maker AT [facility], [facility] 414.9 401.9 272.4 Office Visit 03/09/2014 3:30p [facility] Of Bebeto Perez M.D., 26721 414.9 Maple Sugar Maker AT [facility], [facility] 401.9 272.4 V72.81 Office Visit 09/02/2013 2:45p [facility] Of Bebeto Perez M.D., 36344 414.9 [facility] AT [facility] 401.9 272.4 Office Visit 02/11/2013 3:30p [facility] Of Bebeto Perez M.D., 97273 414.9 Maple Sugar Maker AT [facility] 401.9 Office Visit 09/17/2012 10:10a [facility] Internal Medicine Jill Plata M.D. 21268 244.0 - [place] 787.02 401.9 311 799.81 Office Visit 08/05/2012 10:30a [facility] Internal Medicine Jill Plata 04517 250.02 - [place] Thaddeus 244.0 700 787.02 733.90 401.9 V04.89 Office Visit 06/18/2012 12:10p [facility] Internal Medicine Jill Plata 53141 250.02 - [place] Kavin.DTrina 311 781.91 Office Visit 05/19/2012 10:00a [facility] Internal Medicine Jill Plata 89765 250.02 - [place] Thaddeus 311 244.0 782.3 327.02 Office Visit 04/10/2012 10:30a [facility] Internal Medicine Jill Plata 92274 250.02 - [place] Kavin.Elizabeth 272.2 780.52 V10.87 244.0 735.4 Office Visit 03/25/2012 10:00a [facility] Internal Medicine Jill Plata 95287 250.02 - [place] Kavin.DTrina 311 401.9 414.01 272.2 780.52 278.00 Office Visit 10/09/2011 1:45p Orthopedic Services Quincy Carrillo 25001 812.03 Of Richard Monroy R.P.A.-C 812.09 Office Visit 09/21/2011 9:00a [facility] Shanique Adorno 67555 812.00 Of Richard Travis Office Visit 09/18/2011 9:00a [facility] Aldair Fernandes M.D. 29872 812.09 Of Richard 812.00 Office Visit 09/06/2011 9:30a [facility] Quincy Carrillo 22999 812.09 Of Reuben Vera 812.00 Plan of Care Future Appointment(s):09/30/2018 8:45 am - Samy Collins MD at [facility] Of Richard
--- NOTE | 2018-09-18 14:24 | ED ---
GI/ HPI - HPI Summary HPI Summary: This patient is a 72 year old F [facility] her after being sent by her PCP. Pt states she is being treated for a UTI and today her culture came back. She has been taking Cipro but her PCP told her the bacteria is non responsive to this and suggested she come to the ED for IV abx. She has been on Cipro fot 3 days. Patient reports dysuria, increased frequency, urinary retention, and hematuria. Patient denies CP, SOB, and n/v/d.The patient rates the pain 2/10 in severity. We contacted [facility] and the culture was positive for ESBL e coli and is sensitive to macrobid and zosyn. They will refax the culture results as we did not get them the first time. - History of Current Complaint Chief Complaint: EDUrogenitalProblems Time Seen by Provider: 09/18/18 14:15 Stated Complaint: ABNORMAL LABS Hx Obtained From: Patient Onset/Duration: Started Days Ago, Still Present Timing: Constant Severity: Moderate Current Severity: Moderate Pain Intensity: 2 Location of Pain: Diffuse Associated Signs and Symptoms: Positive: Other: - dysuria, increased frequency, urinary retention, and hematuria. - Additional Pertinent History Primary Care Physician: [id number] - Allergy/Home Medications Allergies/Adverse Reactions: Allergies Allergy/AdvReac Type Severity Reaction Status Date / Time morphine Allergy Severe Hives Verified 09/18/18 14:29 Penicillins Allergy Severe Rash And Verified 09/18/18 14:29 Itching propoxyphene Allergy Severe Hives Verified 09/18/18 14:29 Home Medications: Home Medications Albuterol HFA INHALER* [Ventolin HFA Inhaler*] 2 puff INH Q4H PRN 09/18/18 [ History Confirmed 09/18/18] Ciprofloxacin TAB* [Cipro 250 MG Tab*] 250 mg PO BID 09/18/18 [History Confirmed 09/18/18] Esomeprazole(NF) [NexIUM(NF)] 40 mg PO DAILY 09/18/18 [History Confirmed ] Losartan TAB* [Cozaar TAB*] 100 mg PO DAILY 09/18/18 [History Confirmed 09/18/18 ] Lubiprostone (NF) [Amitiza (NF)] 8 mcg PO BID 09/18/18 [History Confirmed ] Ranolazine (NF) [Ranexa (NF)] 1,000 mg PO BID 09/18/18 [History Confirmed ] Rosuvastatin (NF) [Crestor (NF)] 20 mg PO QPM 09/18/18 [History Confirmed ] SitaGLIPtin (NF) [Januvia (NF)] 100 mg PO DAILY 09/18/18 [History Confirmed 06/28] PMH/Surg Hx/FS Hx/Imm Hx Endocrine/Hematology History: Reports: Hx Thyroid Disease - Thyroid cancer 2009 , Thyroidectomy Denies: Hx Diabetes - DM-2 Cardiovascular History: Reports: Hx Angina, Hx Auto Implanted Cardiovert Defib, Hx Congestive Heart Failure, Hx Coronary Artery Disease, Hx Hypercholesterolemia , Hx Hypertension, Hx Myocardial Infarction, Hx Pacemaker/ICD, Other Cardiovascular Problems/Disorders - CAD Denies: Hx Peripheral Vascular Disease, Hx Rheumatic Fever, Hx Valvular Heart Disease Respiratory History: Reports: Hx Asthma, Hx Chronic Obstructive Pulmonary Disease (COPD), Other Respiratory Problems/Disorders - Dr wants her to have a sleep study done for sleep apnea Denies: Hx Pulmonary Edema, Hx Pulmonary Embolism GI History: Reports: Hx Gastroesophageal Reflux Disease - on medication, Hx Hiatal Hernia, Hx Irritable Bowel - on medication Denies: Other GI Disorders History: Reports: Other Problems/Disorders - urinates frequently, states due to furosemide Denies: Hx Dialysis, Hx Renal Disease Musculoskeletal History: Reports: Hx Arthritis, Hx Back Problems - spinal surgery Denies: Hx Tendonitis, Other Musculoskeletal History Sensory History: Reports: Hx Cataracts - Bilateral, removed 05/05/07, Hx Contacts or Glasses - not at hospital, Hx Vision Problem Denies: Hx Hearing Aid, Hx Hearing Problem Opthamlomology History: Reports: Hx Cataracts - Bilateral, removed 05/05/07, Hx Contacts or Glasses - not at hospital, Hx Vision Problem Neurological History: Reports: Hx Nerve Disease - Diabetic Neuropathy Denies: Hx Dementia, Hx Seizures, Other Neuro Impairments/Disorders Psychiatric History: Reports: Hx Depression - on medication Denies: Hx Panic Disorder - Cancer History Cancer Type, Location and Year: THYROID 2009 Hx Chemotherapy: Yes - Thyroid cancer Hx Radiation Therapy: No - Surgical History Surgery Procedure, Year, and Place: [id number] [facility] [employer] [facility] . THYROIDECTOMY 2010. BILATERAL CATARACTS 2007. 05/04/11-4 CARDIAC STENTS [facility] V. 01/20/16-2 CARDIAC STENTS RESOLUTE INTEGRITY-ALL STENTS APPROVE FOR 1.5 OR 3T AND WILL BE SCANNED IN NORMAL MODE-INFO IN OTHER FACILITY INFO. BACK SURGERY MANY YEARS [id number] KNEE REPLACEMENT-BILATERAL FOOT SURGERY-Bunionectomy. Hysterectomy Hx Anesthesia Reactions: No Infectious Disease History: No Infectious Disease History: Denies: Hx of Known/Suspected MRSA, Traveled Outside the [place] in Last 30 Days - Family History Known Family History: Positive: Cardiac Disease - Brother with CAD/GA at 50 - Social History Alcohol Use: None Hx Substance Use: No Substance Use Type: Reports: None Hx Tobacco Use: Yes - not currently Smoking Status (MU): Former Smoker Type: Cigarettes Amount Used/How Often: 1 -2 PPD for 40 years Have You Smoked in the Last Year: No Review of Systems Negative: Chest Pain Negative: Shortness Of Breath Negative: Vomiting, Diarrhea, Nausea Genitourinary: Other - dysuria, increased frequency, urinary retention, and hematuria. All Other Systems Reviewed And Are Negative: Yes Physical Exam - Summary Physical Exam Summary: GENERAL: Patient is a well-developed and nourished F who is lying comfortable in the stretcher. Patient is not in any acute respiratory distress. HEAD AND FACE: Normocephalic EYES: PERRLA, EOMI x 2. EARS: Hearing grossly intact. MOUTH: Oropharynx within normal limits. NECK: Supple, trachea is midline, no adenopathy, no JVD, no carotid bruit. CHEST: Symmetric, no tenderness at palpation LUNGS: Clear to auscultation bilaterally. No wheezing or crackles. CVS: Regular rate and rhythm, S1 and S2 present, no murmurs or gallops appreciated. ABDOMEN: Soft, TTP suprapubic region. Bowel sounds are normal. No abdominal abnormal pulsations. EXTREMITIES: Full ROM in all major joints, no edema, no cyanosis or clubbing. There is a cast on the left leg NEURO: Alert and oriented x 3. No acute neurological deficits. Speech is normal and follows commands. SKIN: Dry and warm Triage Information Reviewed: Yes Vital Signs On Initial Exam: Initial Vitals Temp Pulse Resp BP Pulse Ox 98.7 F 62 18 98/57 96 09/18/18 14:07 09/18/18 14:07 09/18/18 14:07 09/18/18 14:07 09/18/18 14:07 Vital Signs Reviewed: Yes Diagnostics - Vital Signs Vital Signs Temp Pulse Resp BP Pulse Ox 09/18/18 14:07 98.7 F 62 18 98/57 96 - Laboratory Result Diagrams: 09/19/18 06:19 09/19/18 06:19 Lab Statement: Any lab studies that have been ordered have been reviewed, and results considered in the medical decision making process. GIGU Course/Dx - Course Assessment/Plan: This patient is a 72 year old F presenting for IV abx due to UA culture showing ESBL E coli. Work up remarkable for lactic at 3.9, BUN of 35 , creatinine of 1.16, and CRP of 22.2. I reviewed the records that were faxed from [facility] and the urine culture showed an E coli ESBL that was sensitive to macrobid, zosyn, and cefepime (dose dependent) and ertapenem. The patient is allergic to penicillin so cefepime will be used. Dx UTI. We discussed patient care with Dr. Chowdhury and she has agreed to admit the patient. - Diagnoses Provider Diagnoses: UTI (urinary tract infection) Discharge - Sign-Out/Discharge Documenting (check all that apply): Patient Departure - admitted - Discharge Plan Condition: Fair Disposition: ADMITTED TO [facility] - Billing Disposition and Condition Condition: FAIR Disposition: Admitted to [facility] - Attestation Statements Document Initiated by Kiera: Yes Documenting Scribe: Alistair Mendoza Provider For Whom Scribe is Documenting (Include Credential): Dian Napier MD Scribe Attestation: Alistair Urbina , scribed for Dian Napier MD on 09/19/18 at 0727. Scribe Documentation Reviewed: Yes Provider Attestation: The documentation as recorded by the Alistair victor accurately reflects the service I personally performed and the decisions made by me, Dian Napier MD
[2018-09-18 15:18] LABS: ABS Basophils 0 10^3/ul (0-0.2); ABS Eosinophils 0.1 10^3/ul (0-0.6); ABS Lymphocytes 1.6 10^3/ul (1.0-4.8); ABS Monocytes 0.7 10^3/ul (0-0.8); ABS Neutrophils 4.8 10^3/ul (1.5-7.7); ABS Nucleated RBC 0 10^3/ul; Hematocrit 39 % (35-47); Hemoglobin 12.9 g/dl (12.0-16.0); Lymphocyte % 22.2 % (25-47); Mean Corpuscular HGB Conc 34 g/dl (31-36); Mean Corpuscular Hemoglobin 33 pg (27-31); Mean Corpuscular Volume 98 fL (80-97); Mean Platelet Volume 8.2 fL (7.4-10.4); Nucleated Red Blood Cells % 0; Platelet Count 219 10^3/ul (150-450); Red Blood Count 3.92 10^6/ul (4.00-5.40); Red Cell Distribution Width 15 % (10.5-15); White Blood Count 7.3 10^3/ul (3.5-10.8)
[2018-09-18] MEDS ORDERED: Cefepime 2 GM in Dextrose(*) 2 GM/50 ML BAG IV ONE (15:22)
[2018-09-18] MEDS ORDERED: NS 0.9% 1000 ML* 1,000 ML IV ONE (15:22)
[2018-09-18 15:26] LABS: INR 0.99 (0.77-1.02)
[2018-09-18 15:38] LABS: EGFR Non-African American 45.7 (>60)
[2018-09-18] MEDS ORDERED: oxyCODONE/Acetamin 5/325 MG* TAB PO PRN (16:57)
[2018-09-18] MEDS ORDERED: Albuterol/Ipratropium NEB.SOL* Albuterol 2.5 MG/Ipratropium 0.5 MG 3 ML INH PRN (16:57)
[2018-09-18] MEDS ORDERED: Acetaminophen TAB* 325 MG PO PRN (16:57)
[2018-09-18] MEDS ORDERED: Baclofen TAB* 10 MG PO PRN (17:26)
[2018-09-18] MEDS ORDERED: Albuterol HFA INHALER* 8 gm MDI INH PRN (17:26)
[2018-09-18] MEDS ORDERED: Cyclobenzaprine TAB* 10 MG PO PRN (17:26)
[2018-09-18] MEDS ORDERED: Nitroglycerin TAB 0.4 MG* 0.4 MG TAB SL PRN (17:33)
[2018-09-18] MEDS ORDERED: Polyethylene Glycol 3350* 17 GM PACKET PO PRN (17:33)
[2018-09-18] MEDS: Mometasone/Formoter 200/5 MDI INH SCH (19:18)
[2018-09-18] MEDS: NS 0.9% 1000 ML* 1,000 ML IV SCH (19:57)
[2018-09-18] MEDS: Gabapentin CAP(*) 300 MG PO SCH (21:47)
[2018-09-18] MEDS: Heparin VIAL(*) 5000 UNITS/ML VIAL (FIVE THOUSAND) SUBCUT SCH (21:48)
[2018-09-18] MEDS: Metoprolol Succinate XL TAB* 25 MG PO SCH (21:48)
[2018-09-18] MEDS: Meropenem 1 GM PREMIX(*) 1 GM/50 ML BAG IV SCH (21:49)
[2018-09-18 22:33] LABS: Urine Appearance Cloudy; Urine Blood 3+ (Negative); Urine Color Yellow; Urine Ketones Negative (Negative); Urine Protein Negative (Negative); Urine Red Blood Cell 1+(3-5/hpf) (Absent); Urine Specific Gravity 1.006 (1.010-1.030); Urine Urobilinogen Negative (Negative); Urine White Blood Cell 3+(>20/hpf) (Absent)
--- NOTE | 2018-09-18 23:27 | HP ---
CC: Dr. Gordon; Dr. Freeman * HISTORY AND PHYSICAL: DATE OF ADMISSION: 09/18/18 PROVIDER: Luna Gonzalez NP PRIMARY CARE PHYSICIAN: Dr. Gordon. CONSULTING PHYSICIAN: Dr. Freeman. ATTENDING PHYSICIAN: Dr. Brisa Chowdhury * (dictated by Luna Gonzalez NP). CHIEF COMPLAINT: Urinary tract infection. HISTORY OF PRESENT ILLNESS: This is a 72-year-old female with a complex past medical history including diabetes, on an insulin pump, coronary artery disease , status post 14 stents, chronic diastolic heart failure with an EF of 55% to 60 %, sick sinus syndrome, status post pacemaker placement in May 2017, hypertension, hyperlipidemia, hypothyroidism, COPD, GERD, and depression who presented to the ED after being sent by her PCP for a UTI. The patient initially started having urinary symptoms on Saturday night including dysuria, frequency, hematuria, and suprapubic pain. She then went to her PCP on Saturday morning, who did a UA and sent out cultures and started her empirically on Cipro. Today, the culture results came back with ESBL E. coli resistant to Cipro and her PCP sent her to the ED for IV antibiotics. In the ED today, the patient continued to endorse dysuria, frequency, slight dizziness, general fatigue, suprapubic pain, and hematuria. She denied nausea, vomiting, and flank pain. She denied abdominal pain, shortness of breath, chest pain, headache, and fevers or chills. The culture results were obtained from [place] and it revealed that her UTI was dose dependent susceptible to cefepime, which she did receive 1 dose of in the ED. Of note, the patient was afebrile without leukocytosis. Her initial blood pressure was 98/54. She was given 1 L of normal saline in the ED, after which her blood pressure came up to the SBP of 130s to 160s. Her labs were notable for a lactic acid of 3.9 and a creatinine of 1.16, up from her baseline of 0.6 to 0.8. The hospitalist team was asked to evaluate this patient for admission. She will be admitted for IV antibiotics for her ESBL E. coli UTI. Urinalysis and urine culture were sent and are pending, and blood cultures are also pending. Also of note, the patient had an ORIF in July and the patient has a cast on her left ankle. She reports keeping the cast wet today. Ortho was consulted and recommended that the cast be removed. PAST MEDICAL HISTORY: 1. Diabetes, on an insulin pump. 2. Coronary artery disease, status post 14 stents. 3. Chronic diastolic heart failure with an EF of 55% to 60% as of 2016. 4. Sick sinus syndrome, status post pacemaker in May 2017. 5. Hypertension. 6. Hyperlipidemia. 7. COPD. 8. GERD. 9. Hypothyroidism. 10. Depression. PAST SURGICAL HISTORY: 1. Left ankle ORIF in July 2018. 2. Lumbar laminectomy. 3. Thyroidectomy. 4. Hysterectomy. 5. Tonsillectomy. MEDICATIONS: Home medications: 1. Humalog insulin in her insulin pump. 2. Tylenol 650 mg p.o. q.6 hours. 3. Aspirin 81 mg p.o. q.a.m. 4. Albuterol inhaler 2 puffs INH q.4 hours p.r.n. 5. Vitamin D3 2000 units p.o. q.a.m. 6. Symbicort 1 puff INH b.i.d. 7. Bupropion XL 300 mg p.o. daily. 8. Baclofen 5 mg p.o. t.i.d. p.r.n. 9. Atorvastatin 40 mg p.o. at 1700. 10. Furosemide 20 mg p.o. daily. 11. Flexeril 10 mg p.o. t.i.d. 12. Clopidogrel 75 mg p.o. daily. 13. [place] 5/325 one to two tabs p.o. q.6 hours p.r.n., max daily dose 6. 14. Gabapentin 600 mg p.o. t.i.d. 15. Losartan 100 mg p.o. daily. 16. Synthroid 200 mcg p.o. daily at 6 a.m. 17. Imdur 60 mg p.o. daily. 18. Lubiprostone 8 mcg p.o. b.i.d. 19. Januvia 100 mg p.o. daily. 20. Metoprolol succinate XL 25 mg p.o. b.i.d. 21. Magnesium 64 mg p.o. daily. 22. Ranexa 1000 mg p.o. b.i.d. 23. MiraLax 17 g p.o. daily p.r.n. 24. Nitroglycerin tab 0.4 mg sublingual q.5 minutes p.r.n. 25. Nexium 40 mg p.o. daily. 26. Potassium chloride 20 mEq p.o. q.a.m. 27. Metformin 1000 mg p.o. b.i.d. 28. Amlodipine 5 mg p.o. daily. 29. Ultram 50 mg p.o. q.6 hours p.r.n. ALLERGIES: The patient has an allergy to MORPHINE, reaction is hives. The patient has an allergy to PENICILLIN, reaction is also hives. FAMILY HISTORY: The patient endorses a family history of heart disease. Her brother had an WI and another brother had coronary artery disease and her sister has a pacemaker. The patient's mother had diabetes and the patient's brother had lymphoma. SOCIAL HISTORY: The patient is a former smoker. She quit smoking 14 years ago , but smoked 1 to 2 packs per day for 40 years. The patient does not drink alcohol or use illicit drugs. The patient would like to be a full code and the patient's medical decision maker is her partner, Lucas Jean Baptiste. REVIEW OF SYSTEMS: I performed a 14-point review of systems. All the pertinent positives and negatives are mentioned in the history of present illness. The remaining review of systems are negative. PHYSICAL EXAMINATION GENERAL APPEARANCE: The patient is alert, pleasant, appears to be in no acute distress. VITAL SIGNS: Temperature 97.7, heart rate 63, respiratory rate 18, O2 sat 98% on room air, blood pressure 142/54. HEENT: Normocephalic, atraumatic. Pupils are equal, round, and reactive to light and accommodation. Extraocular movements are intact. NECK: Supple. No lymphadenopathy noted. No JVD appreciated. RESPIRATORY: No accessory muscle use. Lungs are clear to auscultation. Normal work of breathing. CARDIAC: Regular rate and rhythm. S1 and S2 present. No murmurs, rubs, or gallops heard. ABDOMEN: Soft and nondistended. There are bowel sounds x4. The patient does endorse suprapubic pain to palpation. There is no rebound or guarding. EXTREMITIES: No lower extremity edema. DP and PT pulses are 2+ on the right lower extremity. Left lower extremity, unable to be examined as the patient has a cast in place on the left leg. MUSCULOSKELETAL: No clubbing or cyanosis noted. The patient exhibited 5/5 strength in bilateral upper extremities. NEUROLOGIC: The patient is alert and oriented x3. Speech is normal. Follows commands. PSYCH: The patient is calm and cooperative. SKIN: There are no rashes or abnormalities seen. Skin is dry and warm. DIAGNOSTIC STUDIES/LAB DATA: Labs: White blood cell count 7.3, RBC 3.92, hemoglobin 12.9, hematocrit 39, MCV 98, MCH 33, MCHC 34, RDW 15, platelet count 219, MPV 8.2, neutrophil percent 66.2, lymph percent 22.2, mono percent 9.0, eosinophil percent 2.0, baso percent 0.6. Coagulation, INR 0.99. Sodium 138, potassium 4.8, chloride 102, carbon dioxide 26, anion gap 10, BUN 35, creatinine 1.16, glucose 211, lactic acid 3.9, calcium 9.8. Total bilirubin 0.30, AST 14, ALT 15, alk phos 73. CRP 22.34. Total protein 8.0. Albumin 4.1 , globulin 3.9, albumin/globulin ratio 1.1. Blood cultures are pending, and urinalysis and culture are pending; however, we do have the results from her urine culture from her PCP on Saturday, please see chart for more details. Diagnostics: No diagnostics were completed at this time. IMPRESSION: The patient is a 72-year-old female with extensive past medical history, admitted for IV antibiotics for her extended-spectrum beta-lactamase Escherichia coli urinary tract infection. PLAN/RECOMMENDATIONS: 1. Extended-spectrum beta-lactamase Escherichia coli urinary tract infection. The patient continues to endorse dysuria, hematuria, frequency, and suprapubic pain. She is afebrile without leukocytosis. She does feel like she is retaining urine, so I have ordered a bladder scan and we can straight cath her if necessary or put in a [place]. The patient did receive 2 g of cefepime in the ED. The culture from her PCP lists that her UTI is dose dependent susceptible to cefepime with a higher dose, i.e., 2 g q.8 hours; however, it does indicate that this for a patient with normal renal function. As the patient does have an LUIS at the moment, we have switched her antibiotics going forward to meropenem. Of note, the patient's initial lactic acid was 3.9 and her initial blood pressure upon presentation was 98/57. She did receive 1 L of IV fluids in the ED and we will continue to hydrate her with normal saline at 75 mL an hour to resolve these issues. Followup lactic acid has been ordered for this evening as well as tomorrow morning and we will continue to trend. An ID consult has been placed as well due to the resistant nature of this UTI. New UA is pending and blood cultures are pending as well. 2. Status post left ankle open reduction and internal fixation with cast. Procedure was done at [facility] in July The patient reports that she wet the entire inside of her cast this morning in the shower and she reports that she has a wound from this procedure that is still not healed under the cast. I spoke to Dr. Freeman this evening who recommended we remove the cast, make the patient nonweightbearing overnight, get an x-ray of the ankle, and Dr. Freeman will see her in the morning to re-evalute her need for a cast or other type of brace. Original procedure was done with Dr. Munoz. 3. Diabetes. The patient has an insulin pump, which she can continue to use during her stay here. Paper order has been placed for that. The patient will have fingersticks a.c. We will also continue the patient's Januvia; however, we will hold her metformin as she already has an elevated lactic acid. I will also continue her gabapentin for her neuropathy. 4. Coronary artery disease, status post multiple stents. I will continue the patient's aspirin 81 mg p.o. in the morning. I will also continue the patient' s Plavix 75 mg daily. I will also continue her p.r.n. nitroglycerin tabs 0.4 mg. On exam, the patient denied any chest pain or shortness of breath. 5. Chronic diastolic heart failure. No evidence of acute exacerbation. The patient did not have any lower extremity edema, JVD, or rales. I will continue her heart failure regimen of metoprolol 25 mg p.o. b.i.d.; however, I have instituted hold parameters for a systolic blood pressure less than 90. Also, continue her losartan 100 mg but hold for a systolic blood pressure less than 100. As her blood pressure was initially in the 90s, I will hold her 20 mg p.o. Lasix for now, but please reevaluate in the morning. I am also holding her potassium supplement as long as I am holding the Lasix. 6. Hypertension. The patient's blood pressure has been labile from the 90s up until almost 160. I will continue her home losartan, Imdur, and metoprolol with hold parameters in place. I have held her amlodipine 5 mg at the moment, but consider restarting tomorrow if the patient is hypertensive. 7. Hyperlipidemia. I will continue the patient's atorvastatin. 8. Depression. I will continue the patient's bupropion. 9. Chronic obstructive pulmonary disease. I will continue the patient's p.r.n. albuterol. The patient takes Symbicort at home and I have put in for pharmacy Auto- Sub for an equivalent medication. There is no evidence of an acute COPD exacerbation on exam. The patient is not short of breath. No wheezing and is satting well on room air. 10. Hypothyroid. I will continue the patient's Synthroid 200 mcg p.o. daily. 11. Gastroesophageal reflux disease. I will continue the patient's PPI. 12. Acute kidney injury. As mentioned above, the patient does have an acute kidney injury with a creatinine of 1.16. The patient's baseline appears to be 0.6 to 0.8. I will continue gentle fluid hydration with normal saline at 75 mL a hour and continue to monitor. This is likely due to her urinary tract infection. 13. Diet: The patient will be on carb controlled diet. 14. DVT prophylaxis: Heparin subcu as the patient is high risk. 15. Code status: The patient would like to be a full code. 16. Disposition: Inpatient. Anticipate discharge to home when medically stable. TIME SPENT: Time spent for this admission was 60 minutes, 35 minutes were spent with the patient discussing medications, past medical history, and events leading up to the arrival today and performing a physical exam. The case has been reviewed with the attending, Dr. Chowdhury, who agrees with the plan of care. LUNA GONZALEZ, BIRDIE [id number]/[facility] #: [id number] MAGALY
[2018-09-19] MEDS: Levothyroxine TAB* 100 MCG TAB PO SCH (05:42)
[2018-09-19] MEDS: Heparin VIAL(*) 5000 UNITS/ML VIAL (FIVE THOUSAND) SUBCUT SCH ×3 (05:43→20:46)
[2018-09-19] MEDS: Meropenem 1 GM PREMIX(*) 1 GM/50 ML BAG IV SCH ×3 (05:43→21:24)
[2018-09-19 07:11] LABS: Hematocrit 33 % (35-47); Hemoglobin 11.3 g/dl (12.0-16.0); Mean Corpuscular HGB Conc 34 g/dl (31-36); Mean Corpuscular Hemoglobin 33 pg (27-31); Mean Corpuscular Volume 98 fL (80-97); Red Blood Count 3.42 10^6/ul (4.00-5.40); Red Cell Distribution Width 14 % (10.5-15); White Blood Count 5.6 10^3/ul (3.5-10.8)
[2018-09-19 07:18] LABS: EGFR Non-African American 65.4 (>60)
[2018-09-19 08:05] LABS: ABS Basophils 0 10^3/ul (0-0.2); ABS Eosinophils 0.1 10^3/ul (0-0.6); ABS Lymphocytes 1.6 10^3/ul (1.0-4.8); ABS Monocytes 0.5 10^3/ul (0-0.8); ABS Neutrophils 3.3 10^3/ul (1.5-7.7); ABS Nucleated RBC 0 10^3/ul; Eosinophil % 2.7 % (0-6); Lymphocyte % 28.9 % (25-47); Mean Platelet Volume 9.5 fL (7.4-10.4); Nucleated Red Blood Cells % 0.1; Platelet Count 113 10^3/ul (150-450)
[2018-09-19] MEDS: Mometasone/Formoter 200/5 MDI INH SCH ×2 (08:44→19:43)
[2018-09-19] MEDS: Clopidogrel TAB* 75 MG PO SCH (09:03)
[2018-09-19] MEDS: BuPROPion XL* 300 MG TAB.XL PO SCH (09:03)
[2018-09-19] MEDS: Aspirin EC TAB* 81 MG TAB.EC PO SCH (09:03)
[2018-09-19] MEDS: Metoprolol Succinate XL TAB* 25 MG PO SCH ×2 (09:03→20:45)
[2018-09-19] MEDS: Isosorbide Mononitrate ER TAB* 60 MG PO SCH (09:03)
[2018-09-19] MEDS: Magnesium Chloride EC TAB* 64 MG PO SCH (09:03)
[2018-09-19] MEDS: Losartan TAB* 25 MG PO SCH (09:04)
[2018-09-19] MEDS: Gabapentin CAP(*) 300 MG PO SCH ×3 (09:04→20:44)
[2018-09-19] MEDS: CMCS Pantoprazole TAB (NF) 40 MG TAB PO SCH (09:05)
[2018-09-19] MEDS: PTO SitaGLIPtin (NF) 100 MG TAB PO SCH (09:15)
--- NOTE | 2018-09-19 12:36 | PN ---
Progress Note - Progress Note Date of Service: 09/19/18 SOAP: Subjective: []Patient seen at bedside this am. Cast became wet overnight and was removed per orders from Dr. Freeman. Overall pain in left ankle well managed, essentially no complaints. Objective: [] Vital Signs Temp 98.1 F 09/19/18 07:37 Pulse 68 09/19/18 08:49 Resp 16 09/19/18 11:19 BP 135/56 09/19/18 07:37 Pulse Ox 95 09/19/18 08:49 Intake & Output 09/18/18 09/19/18 09/19/18 18:59 06:59 18:59 Intake Total 410 0 120 Balance 410 0 120 Weight 223 lb 5 oz Intake: IV Fluids 50 Oral 360 0 120 Other: Estimated Void Large # Bowel Movements 0 # Voids 5 left ankle: incisions well healed, minimal edema or tenderness, NVI distally, calf NT and soft. Assessment: []s/p ORIF left ankle, 07/2018 Plan: []Well padded short leg fiberglass walking cast applied this morning without difficulty. Patient voices that the cast is comfortable. She has walking shoe for ambulation WBAT LLE. Follow up as scheduled with Dr. Collins.
--- NOTE | 2018-09-19 14:53 | CONS ---
CONSULTATION REPORT: DATE OF CONSULT: 09/19/18 REQUESTING PROVIDER: Luna Stewart NP. CONSULTING SERVICE: Infectious Disease. REASON FOR CONSULTATION: Hemorrhagic cystitis. IMPRESSION: 1. Three to four days of gross hematuria, dysuria, frequency. An outpatient urine grew E. coli, which was an ESBL independent producer, resistant to Bactrim and fluoroquinolones. 2. Long-term use of anticoagulants. 3. Elevated C-reactive protein. 4. Normal postvoid residual. 5. Obesity. 6. Penicillin caused hives a few years back. RECOMMENDATIONS: 1. Agree with meropenem 1 g IV every 8 hours. We will follow her hematuria and urinary tract symptoms on this treatment. Assuming rapid resolution, she could have outpatient treatment in the form of oral fosfomycin, as there is no evidence of pyelonephritis. 2. Ultrasound kidney and bladder to rule out stone disease or obstruction. HISTORY OF PRESENT ILLNESS: This is a 72-year-old diabetic woman admitted with hematuria, developed a few nights ago included clot passage initially with an intense pain with urination and lower pelvic pain. She was seen by her outpatient primary physician, sent urine culture, started on ciprofloxacin, and results came back as above, so recommended she come to the hospital for IV treatment, which she did yesterday. She had persistence of the hematuria and urinary symptoms with some chills and sweats. No fever. Her appetite was off a little bit. Urinalysis here shows blood and leukocyte esterase. She is tolerating meropenem while she has had no fever. She continues to have some suprapubic pressure and pain, worse with urination, has not seen any blood in her urine today. Postvoid residual last night was 0. Has not had a urinary tract infection for a few years that she can recall. PAST MEDICAL HISTORY: 1. Insulin-dependent diabetes with insulin pump. 2. Obesity. 3. History of urinary tract infection. 4. Coronary artery disease status post PCI. 5. Chronic diastolic heart failure, ejection fraction 55% to 60%. 6. Sick sinus syndrome, status post pacemaker placement in 2016. 7. Hypertension. 8. Hyperlipidemia. 9. COPD. 10. Gastroesophageal reflux disease. 11. Hypothyroidism. 12. Depression. 13. Status post open reduction and internal fixation, left ankle in July 2018. 14. Status post lumbar laminectomy. 15. Status post thyroidectomy. 16. Status post hysterectomy. 17. Status post tonsillectomy. MEDICATIONS: 1. Tylenol. 2. Albuterol. 3. Aspirin. 4. Lipitor. 5. Baclofen. 6. Bupropion. 7. Plavix. 8. Flexeril. 9. Gabapentin. 10. Heparin subcutaneous injection. 11. Imdur. 12. Levothyroxine. 13. Valsartan. 14. Magnesium chloride. 15. Meropenem 1 g IV every 8 hours. 16. Metoprolol. 17. Pantoprazole. 18. Sitagliptin. ALLERGIES: MORPHINE and PENICILLIN, both caused hives. SOCIAL HISTORY: She lives with her . She has no travel or sick contacts. FAMILY HISTORY: No recurrent infections or tuberculosis. REVIEW OF SYSTEMS: All negative except as noted above to a 14-point review of systems. PHYSICAL EXAMINATION: Vital Signs: Temperature is 37, heart rate 60, respiratory rate 17, blood pressure 122/50, oxygen saturation 94% on room air. In general, she is awake, not in distress. Neurologic: She is oriented x3. Follows all commands. HEENT: There is no conjunctival hemorrhage. Oropharynx: Without lesions. Neck: Neck is supple without mass. Heart: Regular rate and rhythm without murmurs, rubs, or gallops. Lungs are clear to auscultation bilaterally. Abdomen: Soft, nontender, nondistended. There are bowel sounds present. There is no suprapubic or flank tenderness to palpation. Skin: There are no rashes or splinter hemorrhages. Musculoskeletal: There is no spine tenderness to palpation. LABORATORY DATA: White blood cell count 5, hemoglobin 11, platelets 113. Creatinine 0.8. Lactate was 4 down to 1. CRP 25. Please see impressions and recommendations outlined above. Thank you for asking me to see Ms. Randhawa in consultation. [id number]/[facility] #: [id number] MAGALY
[2018-09-19] MEDS: NS 0.9% 1000 ML* 1,000 ML IV SCH (16:33)
[2018-09-19] MEDS ORDERED: Atorvastatin* 40 MG TAB PO SCH (17:00)
--- NOTE | 2018-09-19 17:32 | PN ---
Subjective Date of Service: 09/19/18 Interval History: Pt seen and examined. Meds and labs reviewed. CC: Hematuria yesterday---mentions that her urine this AM was clear; Abd discomfort ROS: Denied WAYNE/dizziness, F/C, N/V, CP, SOB, increased cough, sputum production , abd pain, diarrhea, constipation, myalgias, arthralgias, throat pain, and new skin lesions. The rest of the 14 point ROS are unremarkable. PHYSICAL EXAM: GEN APPEARANCE: Awake, not in acute distress HEENT: NC/AT, PERRLA, moist oral mucosa, (-) throat erythema NECK: Soft, supple, (-) cervical LAD, (-)JVD HEART: S1S2 WNL, RRR, No MRG CHEST: CTA, BL, GAE, No W/R/R ABD: Soft, ND/NT, NABS 4x Q EXT: No C/C/E SKIN: Warm to touch PSYCH: No active psychosis, hallucinations, depression, SI/HI Objective Active Medications: Acetaminophen (Tylenol Tab*) 650 mg PO Q4H PRN PRN Reason: FEVER/PAIN Albuterol (Ventolin Hfa Inhaler*) 2 puff INH Q4H PRN PRN Reason: SHORTNESS OF BREATH Albuterol/Ipratropium (Duoneb (Albuterol 2.5 Mg/Ipratropium 0.5 Mg)) 1 neb INH RT.[id number] AWAKE PRN PRN Reason: sob/wheexing Aspirin (Aspirin Ec Tab*) 81 mg PO QAM [facility] Last Admin: 09/19/18 09:03 Dose: 81 mg Atorvastatin Calcium (Lipitor*) 40 mg PO 1700 [facility] Last Admin: 09/19/18 16:32 Dose: 40 mg Baclofen (Lioresal Tab*) 5 mg PO TID PRN PRN Reason: SPASMS Bupropion HCl (Bupropion Xl*) 300 mg PO DAILY [facility] Last Admin: 09/19/18 09:03 Dose: 300 mg Clopidogrel Bisulfate (Plavix Tab*) 75 mg PO DAILY [facility] Last Admin: 09/19/18 09:03 Dose: 75 mg Cyclobenzaprine HCl (Flexeril Tab*) 10 mg PO TID PRN PRN Reason: SPASMS - MUSCLE Gabapentin (Neurontin Cap(*)) 600 mg PO TID [facility] Last Admin: 09/19/18 13:54 Dose: 600 mg Heparin Sodium (Porcine) (Heparin Vial(*)) 5,000 units SUBCUT Q8HR [facility] Last Admin: 09/19/18 13:56 Dose: 5,000 units Sodium Chloride (Ns 0.9% 1000 Ml*) 1,000 mls @ 75 mls/hr IV PER RATE [facility] Last Admin: 09/19/18 16:33 Dose: 75 mls/hr Meropenem (Merrem 1 Gm Premix(*)) 1 gm in 50 mls @ 100 mls/hr IV Q8H [facility] Last Admin: 09/19/18 13:55 Dose: 100 mls/hr Isosorbide Mononitrate (Imdur Er Tab*) 60 mg PO DAILY [facility] Last Admin: 09/19/18 09:03 Dose: 60 mg Levothyroxine Sodium (Synthroid Tab*) 200 mcg PO DAILY@0600 [facility] Last Admin: 09/19/18 05:42 Dose: 200 mcg Losartan Potassium (Cozaar Tab*) 100 mg PO DAILY [facility] Last Admin: 09/19/18 09:04 Dose: 100 mg Magnesium Chloride (Slow Mag Ec Tab*) 64 mg PO DAILY [facility] Last Admin: 09/19/18 09:03 Dose: 64 mg Metoprolol Succinate (Toprol Xl Tab*) 25 mg PO BID [facility] Last Admin: 09/19/18 09:03 Dose: 25 mg Mometasone Furoate/Formoterol Fumar (Dulera 200/5 Mdi*) 1 puff INH BID [facility]; Protocol Last Admin: 09/19/18 08:44 Dose: 1 puff Nitroglycerin (Nitroglycerin Tab 0.4 Mg*) 0.4 mg SL Q5M PRN PRN Reason: PAIN - CHEST Oxycodone/Acetaminophen (Percocet 5/325 Tab*) 1 tab PO Q4H PRN PRN Reason: Pain Pantoprazole Sodium (Protonix Tab (Nf)) 40 mg PO DAILY [facility]; Protocol Last Admin: 09/19/18 09:05 Dose: 40 mg Polyethylene Glycol/Electrolytes (Miralax*) 17 gm PO DAILY PRN PRN Reason: CONSTIPATION Sitagliptin Phosphate (Januvia (Nf)) 100 mg PO DAILY [facility]; Protocol Last Admin: 11/09/18 09:15 Dose: Not Given Vital Signs - 8 hr 09/19/18 09/19/18 09/19/18 09:31 11:13 11:19 Temperature 97.8 F Pulse Rate 59 Respiratory 16 18 16 Rate Blood Pressure 113/76 (mmHg) O2 Sat by Pulse 96 Oximetry 09/19/18 09/19/18 09/19/18 13:54 15:25 16:43 Temperature 97.2 F Pulse Rate 64 Respiratory 16 22 16 Rate Blood Pressure 124/51 (mmHg) O2 Sat by Pulse 94 Oximetry Oxygen Devices in Use Now: None Result Diagrams: 09/19/18 06:19 09/19/18 06:19 Microbiology and Other Data: Microbiology 09/18/18 15:59 Aerobic Blood Culture - Preliminary Blood Venous No Growth Day 1 Anaerobic Blood Culture - Preliminary No Growth Day 1 09/18/18 15:04 Aerobic Blood Culture - Preliminary Blood Venous No Growth Day 1 Anaerobic Blood Culture - Preliminary No Growth Day 1 Assess/Plan/Problems-Billing Assessment: - Patient Problems (1) UTI (urinary tract infection) Current Visit: No Status: Acute Comment: #ESBL E. coli: -Continue Meropenem -D/W Dr. Cuevas: If pt consistently no longer has hematuria, pt can be D/Cd on PO fosfomycin since renal and bladder U/S did not show any evidence of nephrolithiasis nor clinical evidence of pyelonephritisfor total 10 treatment therapy (2) Abdominal discomfort Current Visit: Yes Status: Acute Code(s): R10.9 - UNSPECIFIED ABDOMINAL PAIN SNOMED Code(s): 35362657 Comment: -Unclear cause but maybe due to Abx causing bloating? -Pt denies diarrhea -Will obtain AXR -Continue watchful waiting (3) Ankle fracture, left Current Visit: No Status: Acute Code(s): S82.892A - OTH FRACTURE OF LEFT LOWER LEG, INIT FOR CLOS FX SNOMED Code(s): 90408131 Comment: -Pt was recasted this AM and was told LLE examined and was told not to worry about it -Will defer with ortho (4) Diabetes Current Visit: No Status: Chronic Code(s): E11.9 - TYPE 2 DIABETES MELLITUS WITHOUT COMPLICATIONS SNOMED Code(s): 97453955 Comment: -Well-controlled -Continue Sitagliptin -Continue watchful waiting (5) CAD (coronary artery disease) Current Visit: Yes Status: Acute Code(s): I25.10 - ATHSCL HEART DISEASE OF [place] CORONARY ARTERY W/O ANG PCTRS SNOMED Code(s): 96050748 Comment: -Continue ASA, statins, Metoprolol, Losartan, and Isosorbide mononitrate (6) Hypothyroidism Current Visit: Yes Status: Acute Code(s): E03.9 - HYPOTHYROIDISM, UNSPECIFIED SNOMED Code(s): 66071838 Comment: -Continue Levothyroxine -Will check TSH in AM (7) DVT prophylaxis Current Visit: No Status: Acute Code(s): [id number] - SNOMED Code(s): 784529544 Comment: -Continue Heparin SQq8H Status and Disposition: -For possible D/C in 1-2 days
--- NOTE | 2018-09-19 21:02 | CONS ---
ORTHOPEDIC CONSULTATION NOTE: DATE OF CONSULT: 09/19/18 Thank you for this orthopedic consultation. CHIEF COMPLAINT: Left ankle pain. HISTORY OF PRESENT ILLNESS: Ms. Randhawa is a 72-year-old female, who is admitted today to [facility] with a complex UTI. At the time of admission, she reports some chronic 4/10 pain in the left ankle. She had an open reduction and internal fixation of an ankle fracture with Dr. Collins 10 weeks ago in July. The patient reports she was unable to tolerate a fracture boot and was then in a walking cast. She reports she got the cast wet several times this week. I was consulted for orthopedic care of the wet cast. I did ask the patient's hospitalist team to immediately remove the cast. Patient reports minimal 1/10 pain in the left ankle with weight-bearing. PAST MEDICAL HISTORY: Recurrent complex UTIs; recent left ankle fracture; diabetes; coronary artery disease; chronic diastolic heart failure; hypertension ; hyperlipidemia; depression; COPD; hypothyroidism; GERD; acute kidney injury; sick sinus syndrome, status post pacemaker placement. PAST SURGICAL HISTORY: Left ankle ORIF, July 2018; lumbar laminectomy; thyroidectomy; hysterectomy; tonsillectomy; pacemaker placement; multiple stents placed. MEDICATIONS: Home medications: 1. Humalog. 2. Tylenol. 3. Aspirin. 4. Albuterol. 5. Vitamin D3. 6. Symbicort. 7. Bupropion. 8. Baclofen. 9. Atorvastatin. 10. Furosemide. 11. Flexeril. 12. Clopidogrel. 13. [place]. 14. Gabapentin. 15. Losartan. 16. Synthroid. 17. Imdur. 18. Lubiprostone. 19. Januvia. 20. Metoprolol. 21. Magnesium. 22. Ranexa. 23. MiraLAX. 24. Nitroglycerin. 25. Nexium. 26. Potassium. 27. Metformin. 28. Amlodipine. 29. Ultram. Please see admission H and P for all the doses. ALLERGIES: MORPHINE, reaction is hives; PENICILLIN, reaction is hives. FAMILY HISTORY: Mother with diabetes and siblings with lymphoma and heart disease. SOCIAL HISTORY: The patient lives with her . She walks with a walker. She has been in a walking cast. Former smoker, but quit 14 years ago. No alcohol or recreational drug use. REVIEW OF SYSTEMS: Fourteen systems reviewed with the patient today. Positive for left ankle pain and recent wet cast. Positive for the urinary tract symptoms. Otherwise, the patient reports review of systems is negative or not relevant. PHYSICAL EXAM: Vitals: Temperature 98.1, pulse 66, blood pressure 135/56. General: The patient is a well-nourished female, in no apparent distress. Alert and oriented x3. Pleasant mood and appropriate affect. Supportive at her bedside. Gait is not assessed. Left lower extremity: The patient's skin is intact. Her medial incision is healed. Her lateral incision has a small scab. There is no erythema. Minimal swelling. Dorsiflexion neutral , plantar flexion 20 degrees. 2+ palpable DP pulse. No significant edema. No hyperreflexia. DIAGNOSTIC STUDIES: Radiographs: Multiple new films from 09/18/18 of the left ankle shows healing distal bimalleolar fracture with intact hardware. ASSESSMENT AND PLAN: Ms. Randhawa is a 72-year-old female, now 10 weeks status post open reduction internal fixation of the left ankle fracture with my partner , Dr. Collins. I am called for wet cast and left ankle pain. The patient's incisions were healing quite well. There is no evidence of infection. I recommended a fracture boot but the patient and her adamantly opposed this. This causes her discomfort and she would rather a walking cast. I will have a walking cast placed immediately by one of our physician assistants. She can then be weightbearing as tolerated with a rolling walker on the left lower extremity. I would recommend mobilizing with PT immediately. She will follow up with Dr. Collins in 1 week for a recheck. I have discussed this case with Dr. Collins and he agrees with the treatment plan. Thank you for the orthopedic consultation. [id number]/[facility] #: [id number] MAGALY
[2018-09-20] MEDS: Levothyroxine TAB* 100 MCG TAB PO SCH (05:21)
[2018-09-20] MEDS: Heparin VIAL(*) 5000 UNITS/ML VIAL (FIVE THOUSAND) SUBCUT SCH (05:22)
[2018-09-20] MEDS: Meropenem 1 GM PREMIX(*) 1 GM/50 ML BAG IV SCH (05:22)
[2018-09-20 06:36] LABS: ABS Basophils 0 10^3/ul (0-0.2); ABS Eosinophils 0.2 10^3/ul (0-0.6); ABS Lymphocytes 1.6 10^3/ul (1.0-4.8); ABS Monocytes 0.5 10^3/ul (0-0.8); ABS Neutrophils 2.9 10^3/ul (1.5-7.7); ABS Nucleated RBC 0 10^3/ul; Eosinophil % 3.7 % (0-6); Hematocrit 34 % (35-47); Hemoglobin 11.4 g/dl (12.0-16.0); Lymphocyte % 31.3 % (25-47); Mean Corpuscular HGB Conc 34 g/dl (31-36); Mean Corpuscular Hemoglobin 33 pg (27-31); Mean Corpuscular Volume 96 fL (80-97); Mean Platelet Volume 7.8 fL (7.4-10.4); Nucleated Red Blood Cells % 0; Platelet Count 167 10^3/ul (150-450); Red Cell Distribution Width 14 % (10.5-15); White Blood Count 5.2 10^3/ul (3.5-10.8)
[2018-09-20 06:48] LABS: EGFR Non-African American 74.4 (>60)
[2018-09-20] MEDS: Mometasone/Formoter 200/5 MDI INH SCH (07:34)
[2018-09-20] MEDS: NS 0.9% 1000 ML* 1,000 ML IV SCH (07:51)
[2018-09-20] MEDS: Aspirin EC TAB* 81 MG TAB.EC PO SCH (07:57)
[2018-09-20] MEDS: Isosorbide Mononitrate ER TAB* 60 MG PO SCH (07:58)
[2018-09-20] MEDS: Clopidogrel TAB* 75 MG PO SCH (07:58)
[2018-09-20] MEDS: Magnesium Chloride EC TAB* 64 MG PO SCH (07:58)
[2018-09-20] MEDS: CMCS Pantoprazole TAB (NF) 40 MG TAB PO SCH (07:58)
[2018-09-20] MEDS: Metoprolol Succinate XL TAB* 25 MG PO SCH (07:58)
[2018-09-20] MEDS: BuPROPion XL* 300 MG TAB.XL PO SCH (07:58)
[2018-09-20] MEDS: Gabapentin CAP(*) 300 MG PO SCH (07:58)
[2018-09-20] MEDS: Losartan TAB* 25 MG PO SCH (07:58)
[2018-09-20] MEDS: PTO SitaGLIPtin (NF) 100 MG TAB PO SCH (08:09)
[2018-09-20 13:39] VITALS: BP 136/53
--- NOTE | 2018-09-21 05:17 | DS ---
CC: Dr. Chowdhury; Dr. Dian Napier; Dr. Aj Cuevas; Dr. Margarita Freeman; Dr. Sade Gordon DISCHARGE SUMMARY: DATE OF ADMISSION: DATE OF DISCHARGE: 09/20/18 DISCHARGE DIAGNOSES: 1. ESBL Escherichia coli urinary tract infection. 2. Status post left ankle open reduction internal fixation 10 weeks prior to admission. 3. Abdominal discomfort likely secondary to urinary tract infection as well as constipation. 4. Diabetes mellitus. 5. History of coronary artery disease. 6. History of hypothyroidism. DISCHARGE MEDICATIONS: 1. Albuterol HFA 2 puffs inhalation q.4 p.r.n. 2. Aspirin 81 mg p.o. q.a.m. 3. Atorvastatin 40 mg p.o. daily. 4. Baclofen 5 mg p.o. t.i.d. 5. Symbicort 160/4.5 one puff inhalation b.i.d. 6. Bupropion 300 mg p.o. daily. 7. Clopidogrel 75 mg p.o. daily. 8. Cyclobenzaprine 10 mg p.o. t.i.d. 9. Esomeprazole 40 mg p.o. daily. 10. Gabapentin 600 mg p.o. t.i.d. 11. Isosorbide mononitrate 60 mg p.o. daily. 12. Levothyroxine 200 mcg p.o. daily. 13. Losartan 100 mg p.o. daily. 14. Magnesium chloride 64 mg p.o. daily. 15. Metoprolol succinate XL 25 mg p.o. b.i.d. 16. Nitroglycerin 0.4 mg sublingual q.5 p.r.n. 17. Sitagliptin 100 mg p.o. daily. 18. Tylenol 650 mg p.o. q.6 p.r.n. 19. Amlodipine 5 mg p.o. daily. 20. Cholecalciferol 2000 units p.o. q.a.m. 21. Fosfomycin 3 g p.o. q.48 hours x3. 22. Lasix 20 mg p.o. daily. 23. [place] 5/325 one to two tabs p.o. q.4 p.r.n. 24. Floranex 1 tab p.o. daily, 12 tabs dispensed with 0 refills. 25. Amitiza 8 mcg p.o. b.i.d. 26. Metformin 1000 mg p.o. b.i.d. 27. Polyethylene glycol 17 g p.o. daily. 28. Potassium chloride 20 mEq p.o. q.a.m. 29. Ranolazine 1000 mg p.o. b.i.d. 30. Rosuvastatin 20 mg p.o. q.p.m. 31. Tramadol 50 mg p.o. q.6 p.r.n. 32. Insulin lispro 150 units subcu daily. HISTORY OF PRESENT ILLNESS/HOSPITAL COURSE: The patient is a 72-year-old lady with history of diabetes mellitus, on insulin pump; CAD, status post 14 stents; history of diastolic heart failure, who presented to the ED after being sent by PCP for UTI. The patient initially started having urinary tract symptoms on Saturday including the dysuria, frequency, and hematuria as well as suprapubic pain. She then went to her PCP the following day on Saturday morning, who did a urinalysis and sent out cultures and started her empirically on ciprofloxacin. However, on her day of admission, on 09/18/18, the results reportedly came back positive for ESBL E. coli that was resistant to ciprofloxacin. Hence, her PCP sent her to the ED to receive IV antibiotics. She was initially placed on meropenem and was also seen by Dr. Cuevas in consultation. He recommended that the meropenem be changed to fosfomycin p.o. when the patient has no evidence of pyelonephritis or hydronephrosis. A renal ultrasound was done per his recommendation on 09/19/18 and the patient has not had any hematuria for the last 2 days of her hospitalization stay and hence will be discharged per ID's recommendations. The patient was also seen on followup by Orthopedics by Dr. Margarita Freeman on 07/29, who mentioned that the patient has been offered a fracture boot. However , the patient and her had adamantly opposed to this given her left ankle fracture requiring ORIF, S/P 10 days prior to this admission. Instead, she will be placed in a walking cast and to follow up with Dr. Collins in 1 week. The patient had been advised to follow up and/or call her PCP within 3 days post discharge. She was advised that if her symptoms resume or develop new ones or feel unwell for any reason, to call her PCP first and if her PCP cannot entertain her due to scheduling issues alone to call [facility] if the issue is considered nonemergent. She was advised to call my office regarding any questions, concerns, or further clarifications regarding her discharge plans and/or prescriptions and to take her medications as prescribed. On review of systems, the patient currently denies any headache, dizziness, fevers, chills, nausea, vomiting, chest pain, shortness of breath, increased cough and/or sputum production, abdominal pain at this time. Denies any constipation, diarrhea, myalgias, arthralgias, throat pain, or new skin lesions. The rest of the 14-point review of systems is otherwise unremarkable. PHYSICAL EXAMINATION: Shows the most recent vital signs of records, blood pressure of 145/49, 18 per minute respiratory rate, 93% saturation on room air, 62 beats per minute heart rate. General Appearance: The patient is awake, alert, and oriented x3, not in acute distress. HEENT: Normocephalic, atraumatic. PERRLA. Extraocular muscles intact. Negative for icterus. Moist oral mucosa. Negative throat erythema. Neck is soft, supple with no cervical lymphadenopathy. No JVD. Heart: S1, S2 within normal limits. Regular rate and rhythm. No murmurs, rubs, or gallops. Chest: Clear to auscultation bilaterally, good air entry. No wheezes, rales or rhonchi. Abdomen is soft, nondistended, nontender. Normoactive bowel sounds x4 quadrants. Extremities: No cyanosis, clubbing, or edema. Psychiatric: No active psychosis, depression, suicidal or homicidal ideations. Skin is warm to touch. TIME SPENT: The total time spent evaluating the patient, reviewing pertinent data, and appropriate documentation is 50 minutes. [id number]/[facility] #: [id number] [facility] HOSPITALMiranda
== END 2018-09-20 13:15 | disposition home or self-care (01) | DRG 690 ==
LOC: ED 14:05 → MED 16:57
PROVIDERS: ADMIT Hospitalist; ATTEND Student in an Organized Health Care Education/Training Program
DX: N39.0 Urinary tract infection, site not specified (principal); I50.32 Chronic diastolic (congestive) heart failure; N17.9 Acute kidney failure, unspecified; I11.0 Hypertensive heart disease with heart failure; R31.9 Hematuria, unspecified; E11.9 Type 2 diabetes mellitus without complications; I25.10 Atherosclerotic heart disease of native coronary artery without angina pectoris; B96.20 Unspecified Escherichia coli [E. coli] as the cause of diseases classified elsewhere; E03.9 Hypothyroidism, unspecified; Z96.41 Presence of insulin pump (external) (internal); Z16.39 Resistance to other specified antimicrobial drug; I49.5 Sick sinus syndrome; E78.5 Hyperlipidemia, unspecified; F32.9 Major depressive disorder, single episode, unspecified; E66.9 Obesity, unspecified; Z68.35 Body mass index [BMI] 35.0-35.9, adult; X58.XXXD Exposure to other specified factors, subsequent encounter; Z95.0 Presence of cardiac pacemaker; Z95.5 Presence of coronary angioplasty implant and graft; Z79.4 Long term (current) use of insulin; Z79.1 Long term (current) use of non-steroidal anti-inflammatories (NSAID); Z79.82 Long term (current) use of aspirin; Z79.899 Other long term (current) drug therapy; Z88.5 Allergy status to narcotic agent; Z88.0 Allergy status to penicillin; Z82.49 Family history of ischemic heart disease and other diseases of the circulatory system; Z83.3 Family history of diabetes mellitus; Z80.7 Family history of other malignant neoplasms of lymphoid, hematopoietic and related tissues; Z87.891 Personal history of nicotine dependence; S82.892D Other fracture of left lower leg, subsequent encounter for closed fracture with routine healing
CPT/HCPCS: 36415; 74019; 76770; 80048; 80053; 81003; 81015; 83605; 83735; 84100; 84443; 85025; 85610; 85730; 86140; 87040; 87086; 94640; 99284; A9270-GY; G8978-GP-CL; G8979-GP-CK; G8980-GP-CK; J0692; J1644; J2185

== ENCOUNTER 2020-03-04 05:13 | Inpatient (IN) | payer MEDICARE, MEDICAID, OTHER ==
[2020-03-04] MEDS ORDERED: NS 0.9% 1000 ML** 1,000 ML IV ONE (05:18)
--- NOTE | 2020-03-04 05:34 | ED ---
Complex/Multi-Sys Presentation - HPI Summary HPI Summary: 74 y old F presenting to [facility] via EMS with a chief complaint of vomiting, AMS and slurred speech. Patient vomited at 03/04/20 at 2200, AMS subsequently onset. Patient reports feeling weak but denies pain. Patient has a PSHx of a right knee replacement in 2009, left knee replacement in 2013, pacemaker in 2017, and stents. Home Medications Medication Instructions Recorded Confirmed Type metFORMIN* [Glucophage 1000 MG TAB 1,000 mg PO . 1000MG AM/500MG PM 03/16/1401/28 History *] zzInsulin inj LISPRO* [zzHumaLOG 0 - 150 units SUBCUT DAILY 03/16/14 02/12/20 History inj*] Aspirin EC TAB* [Ecotrin EC Low 81 mg PO QAM 03/12/16 02/12/20 History Dose 81 MG*] Cholecalciferol (Vitamin D3) 2,000 unit PO QAM 05/29/17 02/12/20 History [Vitamin D3] Clopidogrel TAB* [Plavix TAB*] 75 mg PO DAILY tab 07/23/18 02/12/20 Rx Esomeprazole(NF) [Nexium(NF)] 40 mg PO DAILY 09/18/18 02/12/20 History Alendronate (NF) [Fosamax (NF)] 70 mg PO MONTHLY 06/01/19 02/12/20 History Calcium Carbonate/Vitamin D3 1 each PO DAILY 06/01/19 02/12/20 History [Calcium 600 + Vit D Tablet] Dulaglutide [Trulicity] 1.5 mg SQ WEEKLY 06/01/19 02/12/20 History Levothyroxine TAB* [Synthroid TAB*] 200 mcg PO DAILY 06/01/19 02/12/20 History Losartan/Hydrochlorothiazide 1 tab PO DAILY 06/01/19 02/12/20 History [Losartan Potassium/Hydroc 100-25 mg] Metoprolol Succinate XL TAB* 25 mg PO . 2 IN AM, 1 PM 06/01/19 02/12/20 History [Toprol XL TAB*] BuPROPion XL* [Bupropion XL*] 300 mg PO DAILY 12/03/19 02/12/20 History Budesonide/Formote 160/4.5(NF) 1 puff INH BID 12/03/19 02/12/20 History [Symbicort 160/4.5 (NF)] Ezetimibe TAB* [Zetia TAB*] 10 mg PO DAILY 12/03/19 02/12/20 History Gabapentin 600 mg PO . 2 IN AM/1 AT HS 12/03/19 02/12/20 History Isosorbide Mononitrate [Isosorbide 60 mg PO DAILY 12/03/19 02/12/20 History Mononitrate ER] Lubiprostone (NF) [Amitiza (NF)] 8 mcg PO DAILY 12/03/19 02/12/20 History Potassium Chloride [Klor-Con M20] 20 meq PO DAILY 12/03/19 02/12/20 History Tapentadol HCl [Nucynta] 50 mg PO Q4H PRN MDD 6 12/03/19 02/12/20 History amLODIPine TAB* [Norvasc 5 mg TAB*] 5 mg PO DAILY 12/03/19 02/12/20 History Polyethylene Glycol 3350* [Miralax 17 gm PO DAILY 02/12/20 02/12/20 History (17 GM DOSE GIO)] Ranolazine [Ranolazine ER] 1,000 mg PO QPM 02/12/20 02/12/20 History Ranolazine [Ranolazine ER] 2,000 mg PO QAM 02/12/20 02/12/20 History Cyclobenzaprine (NF) 5 mg PO TID PRN 02/29/20 History [Cyclobenzaprine 5 MG (NF)] - History Of Current Complaint Chief Complaint: EDAltMentalStatus Time Seen by Provider: 03/04/20 05:18 Hx Obtained From: Patient, EMS Onset/Duration: Still Present Timing: Hours Associated Signs And Symptoms: Positive: Weakness, Vomiting, Other - Slurred speech, AMS - Allergies/Home Medications Allergies/Adverse Reactions: Allergies Allergy/AdvReac Type Severity Reaction Status Date / Time morphine Allergy Severe Hives Verified 02/12/20 09:43 Penicillins Allergy Severe Rash And Verified 02/12/20 09:43 Itching propoxyphene Allergy Severe Hives Verified 02/12/20 09:43 rosuvastatin [From Crestor] Allergy Itching Verified 02/12/20 09:43 Home Medications: Home Medications metFORMIN* [Glucophage 1000 MG TAB *] 1,000 mg PO BID 05/06/14 [History Confirmed 03/04/20] zzInsulin inj LISPRO* [zzHumaLOG inj*] 0 units SUBCUT . DIRECTED 03/16/14 [ History Confirmed 03/04/20] Aspirin EC TAB* [Ecotrin EC Low Dose 81 MG*] 81 mg PO DAILY 03/12/16 [History Confirmed 03/04/20] Cholecalciferol (Vitamin D3) [Vitamin D3] 2,000 unit PO DAILY 05/29/17 [History Confirmed 03/04/20] Clopidogrel TAB* [Plavix TAB*] 75 mg PO DAILY tab 07/23/18 [Rx Confirmed ] Alendronate (NF) [Fosamax (NF)] 70 mg PO MONTHLY 06/01/19 [History Confirmed ] Metoprolol Succinate XL TAB* [Toprol XL TAB*] 25 mg PO BID 06/01/19 [History Confirmed 03/04/20] BuPROPion XL* [Bupropion XL*] 300 mg PO DAILY 12/03/19 [History Confirmed ] Budesonide/Formote 160/4.5(NF) [Symbicort 160/4.5 (NF)] 2 puff INH BID 12/03/19 [History Confirmed 03/04/20] Ezetimibe TAB* [Zetia TAB*] 10 mg PO DAILY 12/03/19 [History Confirmed 03/04/20] Isosorbide Mononitrate [Isosorbide Mononitrate ER] 60 mg PO DAILY 12/03/19 [ History Confirmed 03/04/20] Lubiprostone (NF) [Amitiza (NF)] 8 mcg PO BID 12/03/19 [History Confirmed ] Potassium Chloride [Klor-Con M20] 10 meq PO DAILY 12/03/19 [History Confirmed ] Tapentadol HCl [Nucynta] 50 mg PO Q6H PRN 12/03/19 [History Confirmed 03/04/20] amLODIPine TAB* [Norvasc 5 mg TAB*] 5 mg PO DAILY 12/03/19 [History Confirmed ] Ranolazine [Ranolazine ER] 1,000 mg PO BID 02/12/20 [History Confirmed 03/04/20] Cyclobenzaprine (NF) [Cyclobenzaprine 5 MG (NF)] 5 mg PO TID PRN 02/29/20 [ History Confirmed 03/04/20] Clotrimazole 1% TOPICAL (NF) [Lotrimin 1% TOPICAL (NF)] 1 applic TOPICAL BID [History Confirmed 03/04/20] Cyanocobalamin TAB* [Vitamin B12 TAB*] 500 mcg PO DAILY 03/04/20 [History Confirmed 03/04/20] Dexlansoprazole (NF) [Dexilant (NF)] 30 mg PO DAILY 03/04/20 [History Confirmed 03/04/20] Dulaglutide (NF) [Trulicity (NF)] 0.75 mg SUBCUT WEEKLY 03/04/20 [History Confirmed 03/04/20] Ferrous Sulfate TAB* 325 mg PO DAILY 03/04/20 [History Confirmed 03/04/20] Furosemide TAB* [Lasix TAB*] 20 mg PO DAILY 03/04/20 [History Confirmed 03/04/20 ] Gabapentin 600 mg PO BID 03/04/20 [History Confirmed 03/04/20] Hydrochlorothiazide TAB* [Hydrodiuril TAB*] 25 mg PO DAILY 03/04/20 [History Confirmed 03/04/20] Levalbuterol 0.63MG/3ML NEB* [Xopenex 0.63MG/3ML NEB*] 3 ml INH Q6H PRN [History Confirmed 03/04/20] Levothyroxine Sodium 150 mcg PO DAILY 03/04/20 [History Confirmed 03/04/20] Losartan Potassium 100 mg PO DAILY 03/04/20 [History Confirmed 03/04/20] Nitroglycerin TAB 0.4 MG* 0.4 mg SL Q5M PRN 03/04/20 [History Confirmed 03/04/20 ] Ondansetron TAB* [Zofran 4 MG Tab*] 8 mg PO Q8H PRN 03/04/20 [History Confirmed 03/04/20] Rosuvastatin (NF) [Crestor (NF)] 20 mg PO QPM 03/04/20 [History Confirmed ] Sulfamethox/Trimethoprim DS* [Bactrim DS 800/160 TAB*] 1 tab PO BID 03/04/20 [ History Confirmed 03/04/20] PMH/Surg Hx/FS Hx/Imm Hx Endocrine/Hematology History: Reports: Hx Diabetes, Hx Thyroid Disease - Thyroid cancer 2009, Thyroidectomy Cardiovascular History: Reports: Hx Angina, Hx Auto Implanted Cardiovert Defib, Hx Congestive Heart Failure, Hx Coronary Artery Disease, Hx Hypercholesterolemia , Hx Hypertension, Hx Myocardial Infarction, Hx Pacemaker/ICD - A2DR01 ADV[address] SORIANO [employer] PACEM[employer]ER 04/27 - MR CONDITONAL, Other Cardiovascular Problems/ Disorders - CAD Denies: Hx Peripheral Vascular Disease, Hx Rheumatic Fever, Hx Valvular Heart Disease Respiratory History: Reports: Hx Asthma, Hx Chronic Obstructive Pulmonary Disease (COPD), Other Respiratory Problems/Disorders - Dr wants her to have a sleep study done for sleep apnea Denies: Hx Pulmonary Edema, Hx Pulmonary Embolism GI History: Reports: Hx Gastroesophageal Reflux Disease - on medication, Hx Hiatal Hernia, Hx Irritable Bowel - on medication Denies: Other GI Disorders History: Reports: Other Problems/Disorders - urinates frequently, states due to furosemide Denies: Hx Dialysis, Hx Renal Disease Musculoskeletal History: Reports: Hx Arthritis, Hx Back Problems - spinal surgery Denies: Hx Tendonitis, Other Musculoskeletal History Sensory History: Reports: Hx Cataracts - Bilateral, removed 05/05/07, Hx Contacts or Glasses - not at hospital, Hx Vision Problem Denies: Hx Hearing Aid, Hx Hearing Problem Opthamlomology History: Reports: Hx Cataracts - Bilateral, removed 05/05/07, Hx Contacts or Glasses - not at hospital, Hx Vision Problem Neurological History: Reports: Hx Nerve Disease - Diabetic Neuropathy Denies: Hx Dementia, Hx Seizures, Other Neuro Impairments/Disorders - PAIN CLINIC PT Psychiatric History: Reports: Hx Depression - on medication Denies: Hx Panic Disorder - Cancer History Cancer Type, Location and Year: THYROID 2010 Hx Chemotherapy: Yes - Thyroid cancer Hx Radiation Therapy: No - Surgical History Surgery Procedure, Year, and Place: A2DR01 ADVISA DR SORIANO [employer] [facility] . THYROIDECTOMY 2009. BILATERAL CATARACTS 2006. 05/04/11-4 CARDIAC STENTS [facility] V. 01/20/16-2 CARDIAC STENTS RESOLUTE INTEGRITY-ALL STENTS APPROVE FOR 1.5 OR 3T AND WILL BE SCANNED IN NORMAL MODE-INFO IN OTHER FACILITY INFO. BACK SURGERY - 04/2018 & MANY YEARS [id number] KNEE REPLACEMENT- BILATERAL FOOT SURGERY-Bunionectomy. Lt ANKLE- 2018 Hx Anesthesia Reactions: No Infectious Disease History: No Infectious Disease History: Denies: Hx of Known/Suspected MRSA, Traveled Outside the [place] in Last 30 Days - Family History Known Family History: Positive: Cardiac Disease - Brother with CAD/[place] at 50 - Social History Alcohol Use: None Hx Substance Use: No Substance Use Type: Reports: None Hx Tobacco Use: Yes - not currently Smoking Status (MU): Former Smoker Type: Cigarettes Amount Used/How Often: 1 -2 PPD for 40 years Have You Smoked in the Last Year: No Review of Systems Constitutional: Negative Negative: Other - Pain. Positive: Vomiting Neurological/Mental Status: Other - positive - AMS Positive: Weakness, Slurred Speech All Other Systems Reviewed And Are Negative: Yes Physical Exam - Summary Physical Exam Summary: Appearance: Obese elderly woman lying in stretcher. Vital signs un-markable. Skin: Warm, dry, no obvious rash Eyes: sclera anicteric, no conjunctival pallor HENT: mucous membranes moist, pharynx appears normal Neck: Supple, nontender Respiratory: Clear to auscultation, no signs of respiratory distress Cardiovascular: Normal S1, S2. No murmurs. Normal distal pulses in tibial and radial bilaterally. Abdomen: Soft, nontender, normal active bowel sounds present Musculoskeletal: Normal, Strength/ROM Intact Neurological: Awake and alert. Patient is oriented to person and place. No focal motor deficits, no facial droops, fluent speech, appropriate conversations. No focal deficits otherwise. GCS 15. Psychiatric: affect is normal, does not appear anxious or depressed Triage Information Reviewed: Yes Vital Signs On Initial Exam: Initial Vitals Temp Pulse Resp BP Pulse Ox 98.1 F 70 16 173/57 98 03/04/20 05:13 03/04/20 05:13 03/04/20 05:13 03/04/20 05:13 03/04/20 05:13 Vital Signs Reviewed: Yes Procedures - Sedation Patient Received Moderate/Deep Sedation with Procedure: No Diagnostics - Vital Signs Vital Signs Temp Pulse Resp BP Pulse Ox 03/04/20 05:13 98.1 F 70 16 173/57 98 - Laboratory Result Diagrams: 03/04/20 05:31 03/04/20 05:31 Lab Statement: Any lab studies that have been ordered have been reviewed, and results considered in the medical decision making process. - Radiology CXR Radiology Interpretation Completed By: ED Physician Summary of Radiographic Findings: Imaging shows no acute process. Dr. Lee has viewed and interpreted this imaging pending official report. - CT Brain CT CT Interpretation Completed By: Radiologist Summary of CT Findings: IMPRESSION: No acute intracranial hemorrhage or significant mass effect. Dr. Lee has reviewed and interpreted this imaging report. - EKG 0528 Cardiac Rate: NL EKG Rhythm: Sinus Rhythm Summary of EKG Findings: NSR at 69 BPM, P waves, QRS complex, and T waves are within normal limits, T waves and intervals are normal, no ischemic changes. This is a normal EKG. ED physician has reviewed and interpreted this EKG. Complex Multi-Symp Course/Dx Course Of Treatment: 74 y old F presenting to [facility] via EMS with a chief complaint of vomiting and slurred speech. Patient reports feeling weak but denies pain. Patients PE is normal other than the following: obese elderly woman lying in stretcher, vital signs unmarkable, awake and alert. Patient is oriented to person and place, no focal motor deficits, no facial droops, fluent speech, appropriate conversations, no focal deficits otherwise. Patient's CXR shows no acute process. Patients Brain CT shows the following: IMPRESSION: No acute intracranial hemorrhage or significant mass effect. Patient has a 102 MCV , 35 MCH, 134 sodium, 5.2 potassium, 27 BUN, 1.00 creatinine, 27 BUN/creatinine ratio, 0.03 troponin I, 2.8 lactic acid. During ED course, patient received [address] Lee discussed the care of the patient with Dr. Augustin, who agreed to admit the patient. - Diagnoses Provider Diagnoses: Acute weakness, Acute vomiting - Physician Notifications Discussed Care Of Patient With: Laura Augustin Time Discussed With Above Provider: 07:00 Instructed by Provider To: Other - Dr. Lee discussed the care of the patient with Dr. Augustin, who agreed to admit. - Critical Care Time Critical Care Statement: Critical care time is provided exclusive of any time spent performing procedures. Discharge ED - Sign-Out/Discharge Documenting (check all that apply): Patient Departure - Admitted to [facility] - Discharge Plan Condition: Fair Disposition: ADMITTED TO [facility] - Billing Disposition and Condition Condition: FAIR Disposition: Admitted to [facility] - Attestation Statements Document Initiated by Scribe: Yes Documenting Scribe: Melony Davis Provider For Whom Scribe is Documenting (Include Credential): Jadon Lee Scribe Attestation: I, Melony Davis, scribed for Jadon Lee on 03/05/20 at 0107. Scribe Documentation Reviewed: Yes Provider Attestation: The documentation as recorded by the Melony victor accurately reflects the service I personally performed and the decisions made by Jadon vargas Status of Scribe Document: Viewed
[2020-03-04 05:41] LABS: ABS Lymphocytes 1.1 10^3/ul (1.0-4.8); ABS Monocytes 0.4 10^3/ul (0-0.8); ABS Neutrophils 5.2 10^3/ul (1.5-7.7); Eosinophil % 0.2 %; Hematocrit 41 % (35-47); Lymphocyte % 16.7 %; Mean Corpuscular HGB Conc 34 g/dL (31-36); Mean Corpuscular Hemoglobin 35 pg (27-31); Mean Corpuscular Volume 102 fL (80-97); Mean Platelet Volume 8.1 fL (7.4-10.4); Platelet Count 207 10^3/uL (150-450); Red Cell Distribution Width 14 % (10-15); White Blood Count 6.7 10^3/uL (3.5-10.8)
[2020-03-04 06:00] LABS: ALT 15 U/L (7-52); AST 15 U/L (13-39); Albumin 4.1 g/dL (3.2-5.2); Albumin/Globulin Ratio 1.3 (1-3); Alkaline Phosphatase 52 U/L (34-104); Blood Urea Nitrogen 27 mg/dL (6-24); CO2 Carbon Dioxide 25 mmol/L (22-32); Calcium 9.7 mg/dL (8.6-10.3); Chloride 101 mmol/L (101-111); EGFR African American 65.2 (>60); EGFR Non-African American 53.9 (>60); Globulin 3.1 g/dL (2-4); Glucose 181 mg/dL (70-100); Sodium 134 mmol/L (135-145); Total Protein 7.2 g/dL (6.4-8.9)
[2020-03-04 06:01] LABS: Anion Gap 8 mmol/L (2-11); Potassium 5.2 mmol/L (3.5-5.0)
[2020-03-04 06:05] LABS: Troponin I 0.03 ng/mL (<0.03)
[2020-03-04 06:28] LABS: Urine Appearance Clear; Urine Bilirubin Negative (Negative); Urine Blood Negative (Negative); Urine Color Yellow; Urine Glucose Negative (Negative); Urine Ketones Negative (Negative); Urine Nitrite Negative (Negative); Urine Protein Negative (Negative); Urine Specific Gravity 1.016 (1.010-1.030); Urine Urobilinogen Negative (Negative)
--- OUTSIDE RECORDS SUMMARY | 2020-03-04 06:35 | XMS REPORT | Continuity of Care Document ---
:1945 External Reference #:[id number] Author Name Samy Collins MD (transmitted by agent of provider Pauline Delgadillo) Address [address] [place] [id number] Care Team Providers Name Role Phone Sade Gordon MD - Care Team Information Contracts Director Family Medicine [facility] - Clinic/Center Care Team Information Contracts Director [phone] Problems Active Problems Provider Date Coronary arteriosclerosis Jill Plata M.D. Onset: 03/26/2012 Type II diabetes mellitus uncontrolled Jill Plata M.D. Onset: 03/26/2012 Depressive disorder Jill Plata M.D. Onset: 03/26/2012 Mixed hyperlipidemia Jill Plata M.D. Onset: 03/26/2012 Insomnia Jill Plata M.D. Onset: 03/26/2012 Obesity Jill Plata M.D. Onset: 03/26/2012 History of malignant neoplasm of Jill Plata M.D. Onset: 03/27/2012 thyroid Chronic ischemic heart disease Bebeto Perez M.D., [facility], Onset: 09/02/2013 [facility] Essential hypertension Bebeto Perez M.D., [facility], Onset: 09/02/[address] [facility] Hyperlipidemia Bebeto Perez M.D., [facility], Onset: 09/02/[address] [facility] Preoperative cardiovascular Bebeto Perez M.D., [facility], Onset: 03/09/2014 examination [facility] Chronic ischemic heart disease, Bebeto Perez M.D., [facility], Onset: 09/22/2015 unspecified [facility] Heart murmur Bebeto Perez M.D., [facility], Onset: 02/29/2016 [facility] Mitral valve disorder Bebeto Perez M.D., [facility], Onset: 02/29/2016 [facility] Dyspnea Bebeto Perez M.D., [facility], Onset: 03/19/2016 [facility] Full respiratory system examination Soledad Mcclain MD Onset: 08/10/2016 Emphysema, unspecified Soledad Mcclain MD Onset: 08/10/2016 Cardiac pacemaker in situ Dalia Luke M.D. Onset: 06/07/2017 Chronic diastolic heart failure Bebeto Perez M.D., [facility], Onset: 07/11/2017 [facility] Unspecified diastolic (congestive) Bebeto Perez M.D., [facility], Onset: 09/11/2017 heart failure [facility] Chest pain Bebeto Perez M.D., [facility], Onset: 12/30/2017 [facility] Neurogenic claudication co-occurrent Andrea Diez M.D. Onset: 04/16/2018 and due to spinal stenosis of lumbar region Convalescence after surgery Andrea Diez M.D. Onset: 05/21/2018 Aortic valve disorder Dalia Luke M.D. Onset: 01/23/2019 Premature beats Dalia Luke M.D. Onset: 01/23/2019 Sinus node dysfunction Dalia Luke M.D. Onset: 01/23/2019 Lumbar radiculopathy Andrea Diez M.D. Onset: 04/08/2019 Social History Type Date Description Comments Sex Unknown Tobacco Use Start: Unknown Quit 14 years ago as of 2015 ETOH Use Denies alcohol use Tobacco Use Start: Unknown End: Patient is a former Unknown smoker Recreational Drug Use Denies Drug Use Tobacco Use Start: Unknown Heavy tobacco smoker 1 1/2 PPD x 20+ (more than 10 years cigarettes/day) Smoking Status Reviewed: 01/08/20 Heavy tobacco smoker 1 1/2 PPD x 20+ (more than 10 years cigarettes/day) Exercise Type/Frequency Does not exercise Allergies, Adverse Reactions, Alerts Active Allergies Reaction Severity Comments Date Darvon 03/25/2012 Penicillin 03/25/2012 Morphine 03/25/2012 Brilinta SOB 12/31/2018 Medications Active Medications SIG Qnty Indications Ordering Date Provider Zetia 1 by mouth every 90tabs E78.2 Dalia Luke, 01/23/2019 10mg Tablets day M.D. Clopidogrel Bisulfate 1 by mouth every 90tabs Dalia Luke, 12/30/2018 day M.D. 75mg Tablets Crestor 1 by mouth every 90tabs Dalia Luke, 12/30/2018 40mg Tablets day M.D. Isosorbide 1 by mouth every 90tabs Dalia Luke, 03/09/2014 Mononitrate ER day M.D. 60mg Tablets ER 24HR Nitrostat 1 sl q5mins x3 25tabs Dalia Luke, 06/18/2013 0.4mg Tablets as needed for M.D. Sub chest pain, if no relief call 911 Etouch Ultra Test test as directed 500units 250.02 Jill Plata, 2011 Strips up to 4-5 times M.D. Strips a day Onetouch Lancets test 4-5 times x 500units 250.02 Jill Plata, 2011 Misc per day M.D. Ranexa 1 by mouth twice 180tabs Dalia Luke, 09/03/2012 1000mg Tablets a day M.D. ER 12HR BD Pen [place] for use with 540units Jill Plata, 05/05/2012 Short/Ultrafine/31G X insulin pens as M.D. 03/26" directed 31G X 8 mm Misc Trulicity once a week Unknown Nexium 1 by mouth every Unknown 40mg Capsules DR day Symbicort 2 puff twice a Unknown day 160-4.5mcg/Act Aerosol Klor-Con 1 by mouth every Unknown 20Meq Tablets day ER Vitamin D3 Maximum 1 by mouth every Unknown Strength day 5000Unit Capsules Lasix 1 by mouth every Unknown 20mg Tablets day Norvasc 1 tablet by Unknown 5mg Tablets mouth every day Amitiza twice daily Court Younger, 24mcg Capsules DIRECTOR OF BILLING-C Bupropion HCL ER (XL) one tab daily Clyde March, 300mg Tablets ER 24HR Losartan Potassium 1/2 by mouth Unknown every day 100mg Tablets Aspirin 1 by mouth every Unknown 81mg Tablets day Levothyroxine Sodium 1 by mouth every 30tabs 244.0 Unknown day 175mcg Tablets Gabapentin 1 tab po tid prn Clyde March, 600mg MD Tablets Humalog use via pump max Unknown 100Units/ML 125 per day Metformin HCL 1 po bid 60tabs Unknown 1000mg Tablets Metoprolol Succinate take 2 tab in 270tabs Bebeto Chris, ER the morning and Thaddeus, FACC, 25mg Tablets ER 24HR 1 tab in the [facility] evening Influenza Virus Unknown Vaccine Injection Immunizations CPT Code Status Date Vaccine Lot # [id number] Given 08/05/2012 Zoster (Zostavax) [id number] Given 07/11/2012 Pneumonia Vaccine [id number] Given 07/11/2012 Influenza Virus 3Yrs & Over [id number] Ordered 07/11/2012 Pneumonia Vaccine Vital Signs Date Vital Result Comment 01/08/2020 10:27am Heart Rate 76 /min BP Systolic 144 mmHg BP Diastolic 70 mmHg Body Temperature 97.6 F 10/19/2019 12:30pm Height 66 inches 5'6" Weight 230.00 lb Heart Rate 72 /min BP Systolic 142 mmHg BP Diastolic 80 mmHg Pain Level 10 Buttocks to legs BMI (Body Mass Index) 37.1 kg/m2 Results Description No Information Available Procedures Date Code Description Status 09/08/2019 53643 Pace Maker Eval W/Iterative Adjment Dual Lead Completed 09/08/2019 38108 Pace Maker Eval W/Iterative Adjment Dual Lead Completed 09/08/2019 93411 EKG Tracing & Interpretation Completed 06/20/2012 [id number] Bone Mineral Density Test Completed 04/15/2012 [id number] Diabetic Foot Exam Completed 04/03/2012 469508490 Diabetic Retinal Eye Exam Completed Medical Devices Description No Information Available Encounters Type Date Location Provider Dx Diagnosis Office Visit 01/08/2020 [facility] Karina, M19.171 Post- traumatic 10:15a at [facility] osteoarthritis, right ankle and foot M65.879 Other synovitis and tenosynovitis, unsp ankle and foot Office 10/19/2019 [facility] M47.26 Other spondylosis Visit 12:00[facility] Peralta MD with radiculopathy, lumbar region Office 09/11/2019 Neurosurgery Marla Ashley, M54.16 Radiculopathy, Visit 1:00[facility] HERRERA lumbar region G95.9 Disease of spinal cord, unspecified Office Visit 09/08/2019 2:00p [facility] Alisa Blackman, Z95.0 [facility] PACKER cardiac pacemaker I49.5 Sick sinus syndrome I25.10 Athscl heart disease of [place] coronary artery w/o ang pctrs I35.0 Nonrheumatic aortic (valve) stenosis I49.3 Ventricular premature depolarization I65.23 Occlusion and stenosis of bilateral carotid arteries Assessments Date Code Description Provider 01/08/2020 M19.171 Post-traumatic osteoarthritis, right Samy Collins MD ankle and foot 01/08/2020 M65.879 Other synovitis and tenosynovitis, Samy Collins MD unspecified ankle and foot 10/19/2019 M47.26 Other spondylosis with radiculopathy, Moira Peralta MD lumbar region 09/11/2019 M54.16 Radiculopathy, lumbar region SHARON Fenton 09/11/2019 G95.9 Spinal stenosis of lumbar region SHARON Fenton 09/08/2019 I49.5 Sick sinus syndrome Dalia Luke M.D. 09/08/2019 Z95.0 Presence of cardiac pacemaker Alisa Blackman NP 09/08/2019 I49.5 Sick sinus syndrome Ica Pacer Schedule 09/08/2019 Z95.0 Presence of cardiac pacemaker Dlaia Luke M.D. 09/08/2019 I49.5 Sick sinus syndrome Alisa Blackman NP 09/08/2019 Z95.0 Presence of cardiac pacemaker Ica Pacer Schedule 09/08/2019 I25.10 Atherosclerotic heart disease of [place] Alisa Blackman NP coronary artery with 09/08/2019 I35.0 Nonrheumatic aortic (valve) stenosis Alisa Blackman NP 09/08/2019 I49.3 Ventricular premature depolarization Alisa Blackman NP 09/08/2019 I65.23 Occlusion and stenosis of bilateral Alisa Blackman NP carotid arteries Plan of Treatment Future Appointment(s):01/26/2020 1:20 pm - Alisa Blackman NP at [facility]01/08/2020 - Samy Collins, MDM19.171 Post-traumatic osteoarthritis, right ankle and footNew Xrays:Inj/Aspir, Intermediate Joint/ Bursa W/ US, Ordered: 01/08/20Follow up:As [id number] Other synovitis and tenosynovitis, unspecified ankle and foot Functional Status Description No Information Available Mental Status Description No Information Available Referrals Refer to Reason for Referral Status Appt Date Soledad Mcclain MD Sent [address] [place] [phone]
[2020-03-04 07:59] LABS: C Reactive Protein < 1.00 mg/L (<8.01)
[2020-03-04] MEDS ORDERED: NS 0.9% 1000 ML** 1,000 ML IV SCH (08:00)
[2020-03-04] MEDS ORDERED: Dextrose 50% Syringe 50 ML* 25 GM/50 ML SYRINGE IV PUSH PRN (08:01)
[2020-03-04] MEDS ORDERED: Morphine INJ* 2 MG/ML 1 ML SYRINGE (TWO MG - NEW SYRINGE VERSION) IV PRN (08:29)
[2020-03-04] MEDS ORDERED: Acetaminophen TAB* 325 MG PO PRN (08:29)
[2020-03-04] MEDS ORDERED: Al Hydrox/Mg Hydrox/Simet LIQ* 30 ML UDC PO PRN (08:29)
[2020-03-04 09:02] LABS: Activated Partial Thrombo Time 54.1 seconds (26.0-38.0); INR 1.22 (0.82-1.09)
[2020-03-04 09:16] LABS: Urine Benzodiazepine Screen None Detected (None Detect); Urine Opiates Screen None Detected (None Detect)
--- NOTE | 2020-03-04 11:31 | HP ---
CC: Dr. Gordon; Dr. Sparks; Dr. Peralta; Dr. Freeman HISTORY AND PHYSICAL: DATE OF ADMISSION: 03/04/20 PRIMARY CARE PROVIDER: Dr. Gordon CHIEF COMPLAINT: "Could not wake up." HISTORY OF PRESENT ILLNESS: Terrance Randhawa is a 74-year-old female with history of chronic pain on multiple narcotic pain medications, who as per discussion with the patient's partner, Lucas, woke up in the middle of the night and "vomited a little bit". The patient's partner stated that due to her diabetes, she does it frequently and is not unusual. Today, in the morning, she "could not wake up." When she presented to the ED, she was altered. There was a question of left-sided facial droop, but on the physical evaluation by the ED provider, there was no notice of one-sided weakness. The patient gradually became more coherent and by the time I saw her an hour later, she is able to tell me that she is in the emergency department because she could not wake up. After the phone conversation with her partner, Lucas, the patient took a "muscle relaxant" that she took year-and-a- half ago and "the same thing happened." The patient's partner stated that the patient had not been taking muscle relaxants for the past [id number] due to the episode last time, but due to uncontrolled pain, she decided to do it last night. She also is on Nucynta as per Dr. Sparks's recommendation. They have been self isolating with her partner at home for the past several weeks and they have no visitors and no sick contacts. As per the patient's partner, the patient had not been ill recently. She had not complained of fever or shortness of breath. She did note to be desaturating when she was asleep, but when her wake up, oxygen saturation is 95% on room air. The patient herself apart from that she could not wake up, could not give me any further information. She stated that she had been taking her medications. Recollection of recent events is still poor. She is going to be admitted to the hospital with diagnosis of altered mental status. PAST MEDICAL HISTORY: Taken from medical records includes: 1. Diabetes, on insulin pump. 2. Coronary artery disease, status post 14 stents in the past. 3. History of chronic diastolic CHF with EF of 65% documented in 2019. 4. Spinal stenosis, status post lubar back surgery in May of 2017. 5. Hypertension. 6. Hyperlipidemia. 7. COPD, [id number] 8. Gastroesophageal reflux disease. 9. Hypothyroidism. 10. Depression. 11. History of left ankle ORIF in July of 2018. 12. Lumbar laminectomy complicated by small CSF leak in 2018. 13. Thyroidectomy. 14. Hysterectomy. 15. Tonsillectomy. 16. History of thyroid cancer. MEDICATIONS AT HOME: Are being reconciled right now. The patient unfortunately is unable to provide me with the list of her medications and we are getting fax from her primary care provider. I am aware that the patient is on insulin pump, which she currently has and we are going to discontinue it when she in the hospital. She is also on Nucynta 50 mg every 4 hours for pain. I am unsure which muscle relaxant she took. ALLERGIES: MORPHINE causes hives, PENICILLIN causes hives. FAMILY HISTORY: Unobtainable from this patient, who is still somewhat confused. Per medical records, the patient's mother in the 80s from CVA. Father had lung cancer dying in his 60s. SOCIAL HISTORY: The patient denies any tobacco, alcohol, or drug use. She lives with her significant other, Lucas Jean Baptiste, . He is her domestic partner. She wishes Lucas to be notified on any changes in her condition. She is a full code. She does not have a healthcare proxy. REVIEW OF SYSTEMS: Please see history of present illness. All the remaining 12 systems were attempted to be reviewed very difficult in this patient, who is still altered and forgetful and were otherwise negative. PHYSICAL EXAMINATION GENERAL: The patient is a pleasant 74-year-old female who knows that she is in the hospital. She knows that the year is 2019, but the month according to her was March, but it is February. The patient is appearing out of source and is slightly confused. Stated that she cannot remember everything and it was difficult for her to wake up. She is able to follow commands. VITAL SIGNS: Blood pressure of 158/73, heart rate of 71 and regular, respiratory rate 22, oxygen saturation 94% on room air, temperature of 98.1. HEENT: Head: Atraumatic and normocephalic. Eyes: Pupils are equal and reactive to light and accommodation. Oropharynx clear. Mucosa dry. NECK: Supple. No JVD. No bruits bilaterally. RESPIRATORY: Clear to auscultation bilaterally. CARDIOVASCULAR: Regular rate and rhythm. No murmur. ABDOMEN: Soft, nontender. Bowel sounds present in all 4 quadrants. EXTREMITIES: There is no edema. Pulses are +2 bilaterally. No clubbing or cyanosis. NEUROLOGIC: On neuro evaluation, cogwheel rigidity and tension tremors in bilateral upper extremities, which as per patient are chronic. Motor strength is 5/5 bilaterally. Cranial nerves II through XII grossly intact. Sensation is grossly intact. Speech clear. LABORATORY DATA: White blood cell count 6.7, hemoglobin 14.0, hematocrit 41, MCV of 102, and platelets of 207. Sodium is 134, potassium 5.2, chloride 101, carbon dioxide 25, BUN 27, creatinine 1.0. Liver function tests unremarkable. Creatinine of 1.0, lactic acid of 2.8, troponin of 0.03. C-reactive protein below 1, ammonia 38. The patient's urinalysis was unremarkable. Portable chest x-ray, impression: "Hyperinflated lungs with no focal airspace opacification. Prominent vascular markings could be related to mild pulmonary edema." Brain CT, impression: "No acute intracranial hemorrhage or significant mass effect." The patient's EKG showed normal sinus rhythm with heart rate of 69 beats per minute with no significant ST changes. ASSESSMENT AND PLAN: 1. Altered mental status in patient who has history of being on multiple chronic narcotics and did take a muscle relaxant last night. At this point, most likely the patient is suffering from toxic metabolic encephalopathy due to medications. I do not see any focal neurologic findings to suggest a stroke on evaluation, but once again upon presentation, there was a question of the patient having some left- sided weakness. At this point, I will continue neuro checks every 4 hours. We are going to place the patient on gentle intravenous hydration and observe. She is also going to be presented on monitoring and evaluation advisor bed. 2. In regards the patient's chronic pain management, the patient had been on Nucynta. She also is allergic to MORPHINE. We do not have Nucynta in the hospital. She also took an unknown muscle relaxant. I will ask Dr. Sparks to see the patient in evaluation. 3. In regards to the patient's diabetes, the patient's insulin pump is going to be held. She is going to be placed on Lantus and insulin sliding scale. 4. The patient has elevated lactic acid likely due to slight dehydration. We will repeat it after gentle intravenous fluids. 5. For the patient's COPD, she does not appear to be in exacerbation. 6. The patient has history of coronary disease, at this point no evidence of acute cardiac issues. 7. For DVT prophylaxis, the patient is going to be placed on heparin subcutaneously. 8. The patient's code status is full. Her surrogate is her partner, Lucas. Once again she herself cannot name a surrogate at this point due to alteration of her mentation. Her partner, Lucas wants to be notified about everything what is happening. She has no healthcare proxy on file. TIME SPENT: Approximately 72 minutes was spent on admission of this patient, more than half the time was spent [id number] with the patient during the interview and physical exam. [id number]/[facility] #: [id number] MAGALY
[2020-03-04] MEDS: Insulin LISPRO* 1 UNITS UNIT SUBCUT SCH ×2 (12:23→17:18)
[2020-03-04] MEDS: Insulin GLARGINE(*) 1 UNITS UNIT SUBCUT SCH (12:24)
[2020-03-04] MEDS: Heparin VIAL(*) 5000 UNITS/ML VIAL (FIVE THOUSAND) SUBCUT SCH ×2 (13:17→21:12)
--- NOTE | 2020-03-04 15:22 | CONSULT ---
Consult Consult: March 04, 2020 INPATIENT PAIN CONSULTATION Taylor Randhawa is a 74 year old female with a longstanding history of back pain. It usually radiates into her buttocks. She has an allergy to morphine and was on Tramadol for her pain. She began to see the Pain Clinic in May,. She had a SI joint injection and then had a epidural steroid injection. She was having more pain and was started on Nucynta by Dr. Gannon in November. Her tramadol was stopped. It appears based on [facility] that she may not have started Nucynta until late January. She was seen via telehealth February 11 complaining of more pain. Her Nucynta was increased to 50 mg tabs 6 times a day. The patient is also on a muscle relaxant from another provider. It appears she takes cyclobenzaprine, which she gets from another provider, but the patient cannot tell me for certain which muscle relaxant she takes. This morning, the patient' s significant other was awoken because the patient was shaking. He could not wake her or get her to move. He called 911 and she was brought to the ER. She had a CT of her head which was unrevealing. Her labs were unremarkable. She was admitted. I am asked to see her PAST MEDICAL HISTORY: DM, CAD, multiple stents, HTN, Thyroid Cancer, Pacemaker , Diabetic Peripheral Neuropathy, Lumbar laminectomy Allergies Allergy/AdvReac Type Severity Reaction Status Date / Time morphine Allergy Severe Hives Verified 02/12/20 09:43 Penicillins Allergy Severe Rash And Verified 02/12/20 09:43 Itching propoxyphene Allergy Severe Hives Verified 02/12/20 09:43 rosuvastatin [From Crestor] Allergy Itching Verified 02/12/20 09:43 Current Medications Acetaminophen (Tylenol Tab*) 650 mg PO Q4H PRN PRN Reason: PAIN-MILD/TEMP >/= 100.4 Al Hydrox/Mg Hydrox/Simethicone (Maalox Plus*) 30 ml PO Q6H PRN PRN Reason: INDIGESTION Dextrose (D50w Syringe 50 Ml*) 12.5 gm IV PUSH .FOR FS < 60 - SS PRN PRN Reason: FS < 60 Heparin Sodium (Porcine) (Heparin Vial(*)) 5,000 units SUBCUT Q8HR JB Last Admin: 04/24/20 13:17 Dose: 5,000 units Insulin Glargine (Lantus(*)) 10 units SUBCUT Q24H JB Last Admin: 03/04/20 12:24 Dose: 10 units Insulin Human Lispro (Humalog*) 0 units SUBCUT Q6HR JB; Protocol Last Admin: 03/04/20 12:23 Dose: 4 unit SOCIAL HISTORY: Non smoker, non drinker. Lives with SO in [place] Vital Signs Temp Pulse Resp BP Pulse Ox 97.4 F 61 20 140/82 96 03/04/20 10:47 03/04/20 10:47 03/04/20 10:47 03/04/20 10:47 03/04/20 10:47 EXAM: GENERAL: ALert, conversant LUNGS: CLear HEART: regular rhythm ABDOMEN: Soft, +BS EXTREMITIES: Normal tone NEUROLOGIC: Several myoclonic jerks noted in arms. Able to move legs with at least 4/5 strength ASSESSMENT: 1. Chronic low back pain 2. Altered Mental Status PLAN: Although it is unclear what caused the episode this morning, I think we should hold her Nucynta and avoid cyclobenzaprine. Given the jerking, am not sure tramadol is a good idea. As she gets hives from morphine, may want to try oxycodone 5 mg, 1/2 -1 pill every 6 hours if needed for pain. Will not write for any muscle relaxants. I believe she was on gabapentin in the past but had stopped. I will follow
[2020-03-04] MEDS ORDERED: oxyCODONE/Acetamin 5/325 MG* TAB PO PRN (15:47)
[2020-03-04] MEDS ORDERED: Ondansetron TAB* 4 MG PO PRN (16:12)
[2020-03-04] MEDS: Metoprolol Succinate XL TAB* 50 MG PO SCH (21:11)
[2020-03-04] MEDS: Gabapentin CAP(*) 300 MG PO SCH (21:12)
[2020-03-05] MEDS: Insulin LISPRO* 1 UNITS UNIT SUBCUT SCH ×3 (01:25→12:47)
[2020-03-05] MEDS: Heparin VIAL(*) 5000 UNITS/ML VIAL (FIVE THOUSAND) SUBCUT SCH ×2 (05:41→12:47)
--- NOTE | 2020-03-05 05:48 | PN ---
Hospitalist Progress Note Date of Service: 03/05/20 nurse called with concerns for possible blood in urine will check u/a and culture
[2020-03-05] MEDS ORDERED: Levothyroxine TAB* 150 MCG TAB PO SCH (06:00)
[2020-03-05 06:49] LABS: ABS Eosinophils 0.1 10^3/ul (0-0.6); ABS Lymphocytes 1.2 10^3/ul (1.0-4.8); ABS Monocytes 0.5 10^3/ul (0-0.8); ABS Neutrophils 6.7 10^3/ul (1.5-7.7); Eosinophil % 0.6 %; Hematocrit 38 % (35-47); Hemoglobin 13.3 g/dL (12.0-16.0); Lymphocyte % 13.9 %; Mean Corpuscular HGB Conc 35 g/dL (31-36); Mean Corpuscular Hemoglobin 35 pg (27-31); Mean Corpuscular Volume 101 fL (80-97); Mean Platelet Volume 8.4 fL (7.4-10.4); Platelet Count 188 10^3/uL (150-450); Red Blood Count 3.76 10^6 /uL (3.70-4.87); Red Cell Distribution Width 13 % (10-15); White Blood Count 8.5 10^3/uL (3.5-10.8)
[2020-03-05 07:02] LABS: Calcium 9.1 mg/dL (8.6-10.3); EGFR African American 70.1 (>60); EGFR Non-African American 57.9 (>60); Potassium 3.9 mmol/L (3.5-5.0)
[2020-03-05 07:49] LABS: Urine Bacteria Absent (Absent); Urine Red Blood Cell 3+(>10/hpf) (Absent); Urine White Blood Cell 3+(>20/hpf) (Absent)
[2020-03-05 07:50] LABS: Urine Appearance Turbid; Urine Color Red
[2020-03-05] MEDS ORDERED: Cyanocobalamin TAB* 500 MCG PO SCH (09:00)
[2020-03-05] MEDS ORDERED: amLODIPine TAB* 5 MG PO SCH (09:00)
[2020-03-05] MEDS ORDERED: Isosorbide Mononitrate ER TAB* 60 MG PO SCH (09:00)
[2020-03-05] MEDS ORDERED: Potassium Chlor TAB* 20 MEQ TAB.ER PO SCH (09:00)
[2020-03-05] MEDS ORDERED: Furosemide TAB* 20 MG PO SCH (09:00)
[2020-03-05] MEDS ORDERED: Aspirin EC TAB* 81 MG TAB.EC PO SCH (09:00)
[2020-03-05] MEDS ORDERED: Ferrous Sulfate TAB* 325 MG PO SCH (09:00)
[2020-03-05] MEDS ORDERED: Clopidogrel TAB* 75 MG PO SCH (09:00)
[2020-03-05] MEDS: Metoprolol Succinate XL TAB* 50 MG PO SCH (09:07)
[2020-03-05] MEDS: Gabapentin CAP(*) 300 MG PO SCH (09:07)
[2020-03-05] MEDS: Insulin GLARGINE(*) 1 UNITS UNIT SUBCUT SCH (09:09)
[2020-03-05] MEDS ORDERED: Magnesium Hydroxide LIQ* 30 ML UDC PO ONE (10:47)
--- NOTE | 2020-03-05 15:25 | PN ---
Progress Note - Progress Note Date of Service: 03/05/20 Note: INPATIENT PAIN-PROGRESS No further events. I am not sure what happened while she was sleeping early yesterday morning. Yesterday, she told me she took a muscle relaxant. Today, she says she did not take a muscle relaxant. She is supposed to be discharged later today. I think she should avoid Flexeril and lower her Nucynta to 4/day. She can follow up in Pain [facility]inic regarding injections Current Medications Acetaminophen (Tylenol Tab*) 650 mg PO Q4H PRN PRN Reason: PAIN-MILD/TEMP >/= 100.4 Al Hydrox/Mg Hydrox/Simethicone (Maalox Plus*) 30 ml PO Q6H PRN PRN Reason: INDIGESTION Amlodipine Besylate (Norvasc Tab*) 5 mg PO DAILY [facility] Last Admin: 03/05/20 09:08 Dose: 5 mg Aspirin (Aspirin Ec Tab*) 81 mg PO DAILY [facility] Last Admin: 03/05/20 09:08 Dose: 81 mg Clopidogrel Bisulfate (Plavix Tab*) 75 mg PO DAILY [facility] Last Admin: 03/05/20 09:09 Dose: 75 mg Cyanocobalamin (Vitamin B12 Tab*) 500 mcg PO DAILY [facility] Last Admin: 03/05/20 09:09 Dose: 500 mcg Dextrose (D50w Syringe 50 Ml*) 12.5 gm IV PUSH .FOR FS < 60 - SS PRN PRN Reason: FS < 60 Ferrous Sulfate (Ferrous Sulfate Tab*) 325 mg PO DAILY [facility] Last Admin: 03/05/20 09:09 Dose: 325 mg Furosemide (Lasix Tab*) 20 mg PO DAILY [facility] Last Admin: 03/05/20 09:07 Dose: 20 mg Gabapentin (Neurontin Cap(*)) 600 mg PO BID [facility] Last Admin: 03/05/20 09:07 Dose: 600 mg Heparin Sodium (Porcine) (Heparin Vial(*)) 5,000 units SUBCUT Q8HR [facility] Last Admin: 03/05/20 12:47 Dose: 5,000 units Insulin Glargine (Lantus(*)) 10 units SUBCUT Q24H [facility] Last Admin: 03/05/20 09:09 Dose: 10 units Insulin Human Lispro (Humalog*) 0 units SUBCUT Q6HR [facility]; Protocol Last Admin: 03/05/20 12:47 Dose: 2 unit Isosorbide Mononitrate (Imdur Er Tab*) 60 mg PO DAILY [facility] Last Admin: 03/05/20 09:07 Dose: 60 mg Levothyroxine Sodium (Synthroid Tab*) 150 mcg PO DAILY@0600 [facility] Last Admin: 03/05/20 05:41 Dose: 150 mcg Metoprolol Succinate (Toprol Xl Tab*) 25 mg PO BID [facility] Last Admin: 03/05/20 09:07 Dose: 25 mg Ondansetron HCl (Zofran Tab*) 8 mg PO Q8H PRN PRN Reason: NAUSEA Oxycodone/Acetaminophen (Percocet 5/325 Tab*) 0.5 tab PO Q6H PRN PRN Reason: PAIN - MODERATE Last Admin: 03/05/20 11:06 Dose: 0.5 tab Potassium Chloride (Klor Con Er Tab*) 10 meq PO DAILY [facility] Last Admin: 03/05/20 09:44 Dose: Not Given Vital Signs Temp Pulse Resp BP Pulse Ox 97.7 F 69 18 149/65 98 03/05/20 12:04 03/05/20 12:04 03/05/20 13:15 03/05/20 12:04 03/05/20 12:04 EXAM: GENERAL: alert and oriented LUNGS: Clear HEART: reg rhythm ABDOMEN: Soft NEUROLOGIC: Alert, oriented. Able to move her legs without difficulty ASSESSMENT: 1. Low Back Pain 2. Altered Mental Status PLAN: D/C cyclobenzaprine. Lower Nucynta to MDD=4. She can follow up with Pain Clinic. Will need to d/c Nucynta if this happens again
[2020-03-05 16:20] VITALS: BP 137/60
--- NOTE | 2020-03-05 19:58 | DS ---
CC: Dr. Sade Gordon; Dr. Cj Sparks* DISCHARGE SUMMARY: DATE OF ADMISSION: 03/04/20 DATE OF DISCHARGE: 03/05/20 PRIMARY CARE PROVIDER: Dr. Sade Gordon. ATTENDING PHYSICIAN: Dr. Brandi Christensen* (dictated by Barbara Melissa NP). PRIMARY DIAGNOSES: 1. Toxic encephalopathy, suspected medication related. 2. Hematuria. 3. Chronic pain. SECONDARY DIAGNOSES: 1. Insulin-dependent diabetes, on insulin pump. 2. Coronary artery disease. 3. Chronic heart failure with preserved ejection fraction. 4. Hypertension. 5. Hyperlipidemia. 6. Chronic obstructive pulmonary disease. 7. Gastroesophageal reflux disease. 8. Hypothyroidism. STUDIES WHILE IN THE HOSPITAL: 1. EKG on 03/04/20 shows normal sinus rhythm with a rate of 69 with a first- degree heart block and QTc 465. 2. Brain CT on 03/04/20 reads as no acute intracranial hemorrhage or significant mass effect. 3. Chest x-ray on 03/04/20 reads as hypoinflated lungs with no focal airspace opacification. Prominent vascular markings could be related to mild pulmonary edema. HISTORY OF PRESENT ILLNESS AND HOSPITAL COURSE: Ms. Randhawa is a 74-year-old female with past medical history of chronic pain, on narcotics; HFpEF; CAD; diabetes; hypertension, who presented to the emergency room on 03/04/20 with altered mental status. Please see the history and physical by Dr. Augustin for a complete summary of the events leading up to this hospitalization. In short, the patient was noted to be very lethargic in the morning and her significant other noted that he could not wake her up. The patient said on the day of admission that she took a muscle relaxer, which she was not taking frequently, but had been prescribed to her in the past. In the emergency room, she was noted to have normal labs, vitals were stable, though she was still noted to be altered and so she was admitted by the hospitalist service. Dr. Sparks was consulted. He has seen the patient on an outpatient basis in the past. At that point, he recommended avoiding Flexeril and managing pain with [place]. The patient's mental status gradually improved and as of this morning she is back at baseline mentation. When discussing the events from yesterday, the patient notes that she is not sure that she took a muscle relaxant, though she notes that it is possible that she could have. The Flexeril was with her other pills on her dresser and she may have taken it by accident. I did speak with the patient's significant other and he indicates that he thought she did take a muscle relaxer and that her mental status changes yesterday were very similar to what she experienced in the past when taking muscle relaxers. He indicated to me that he did throw out the remaining Flexeril and he felt comfortable taking her back home. Overnight, the patient did have an episode of bloody urine. The patient reports that there were clots in the urine. A urinalysis was done at that time , which did show red urine with 3+ wbc's and 3+ rbc's. There is a culture pending at this time, though there was no bacteria seen in the urinalysis. The cause of this hematuria is not entirely clear, but at this point the patient's H and H remained stable and there is little concern for significant blood loss. The patient is alert and oriented x4 with no focal neurological deficits. Heart has a regular rate and rhythm without murmurs, rubs, or gallops. Lungs are clear to auscultation without rhonchi, wheezes, or rales. There is no edema. Abdomen is soft, slightly tender to deep palpation in the right lower quadrant, though otherwise benign. Physical exam is otherwise benign. Ms. Randhawa is stable for discharge. Most recent vitals are as follows: Temp 97.7, heart rate 65, respiratory rate 17, oxygen saturation 98% on room air, blood pressure 137/60. DISCHARGE MEDICATIONS: Continued: 1. Amlodipine 5 mg p.o. daily. 2. Aspirin 81 mg p.o. daily. 3. Plavix 75 mg p.o. daily. 4. Vitamin B12 500 mcg p.o. daily. 5. Ferrous sulfate 325 mg p.o. daily. 6. Furosemide 20 mg p.o. daily. 7. Isosorbide mononitrate ER 60 mg p.o. daily. 8. Metoprolol succinate 25 mg p.o. b.i.d. 9. Ondansetron 8 mg p.o. q.8 hours p.r.n. nausea. 10. Potassium chloride 10 mEq p.o. daily. 11. Fosamax 70 mg p.o. weekly. 12. Symbicort 160/4.5 two puffs b.i.d. 13. Bupropion XL 300 mg p.o. daily. 14. Cholecalciferol 2000 units p.o. daily. 15. Clotrimazole 1% one application topically b.i.d. 16. Dexlansoprazole 30 mg p.o. daily. 17. Trulicity 0.75 mg subcu weekly. 18. Zetia 10 mg p.o. daily. 19. Gabapentin 600 mg p.o. b.i.d. 20. Hydrochlorothiazide 25 mg p.o. daily. 21. Xopenex 1 neb q.6 hours p.r.n. shortness of breath, wheezing. 22. Levothyroxine 150 mcg p.o. daily. 23. Losartan 100 mg p.o. daily. 24. Amitiza 8 mcg p.o. b.i.d. 25. Metformin 1000 mg p.o. b.i.d. 26. Nitro 0.4 mg sublingual q.5 minutes p.r.n. angina. 27. Ranolazine 1000 mg p.o. b.i.d. 28. Rosuvastatin 20 mg p.o. at bedtime. 29. Nucynta 50 mg p.o. q.6 hours p.r.n. pain, max daily dose 4. 30. Lispro sliding scale via insulin pump. Discontinued: Flexeril. DISCHARGE PLAN: Ms. Randhawa will be discharged home. Activity will be as tolerated. Diet will be diabetic. Medications are noted above. The patient can resume her usual medications. Per recommendations from Dr. Sparks, she should not take any more than 4 Nucynta per day. She should stop taking any further Flexeril, which her significant other has disposed off. She will need to follow up with the pain clinic as further adjustments may need to be made. Regarding her hematuria, the patient does need to follow up with Urology which I have spoken with the patient and with her significant other about. I have stressed the importance of followup and they are agreeable to this, so I would recommend an outpatient referral to Urology, which may need to be urgent if the patient continues to have hematuria. She should follow up with her primary care provider in the next 4 to 7 days. She has been advised to return to the emergency room or nearest hospital for any worsening of symptoms, shortness of breath, lightheadedness, dizziness, chest discomfort, high fevers, chills, night sweats, loss of consciousness, or any other worrisome signs or symptoms. DISCHARGE CONDITION: Stable. DISCHARGE DISPOSITION: Home. This is a summarized report of a complex medical history and hospital stay. For further details, please see the entire medical record. TIME SPENT: Approximately 45 minutes was spent on this discharge. BARBARA MELISSA, [employer] [id number]/[facility] #: [id number] MAGALY
== END 2020-03-05 17:40 | disposition home or self-care (01) | DRG 92 ==
LOC: ED 05:13 → MEDTELE 08:29
PROVIDERS: ADMIT Internal Medicine; ATTEND Internal Medicine
DX: G92 Toxic encephalopathy (principal); I50.32 Chronic diastolic (congestive) heart failure; T48.1X5A Adverse effect of skeletal muscle relaxants [neuromuscular blocking agents], initial encounter; R31.9 Hematuria, unspecified; G89.29 Other chronic pain; E11.9 Type 2 diabetes mellitus without complications; Z96.41 Presence of insulin pump (external) (internal); I25.10 Atherosclerotic heart disease of native coronary artery without angina pectoris; I11.0 Hypertensive heart disease with heart failure; E78.5 Hyperlipidemia, unspecified; J44.9 Chronic obstructive pulmonary disease, unspecified; E86.0 Dehydration; K21.9 Gastro-esophageal reflux disease without esophagitis; E03.9 Hypothyroidism, unspecified; F32.9 Major depressive disorder, single episode, unspecified; Y92.009 Unspecified place in unspecified non-institutional (private) residence as the place of occurrence of the external cause; Z95.5 Presence of coronary angioplasty implant and graft; Z79.4 Long term (current) use of insulin; Z85.850 Personal history of malignant neoplasm of thyroid; Z88.5 Allergy status to narcotic agent; Z88.0 Allergy status to penicillin; Z82.3 Family history of stroke; Z80.1 Family history of malignant neoplasm of trachea, bronchus and lung; Z79.84 Long term (current) use of oral hypoglycemic drugs; Z79.82 Long term (current) use of aspirin; Z79.899 Other long term (current) drug therapy; Z88.8 Allergy status to other drugs, medicaments and biological substances
CPT/HCPCS: 36415; 70450; 71046; 80048; 80053; 80307; 81003; 82140; 83605; 84443; 84484; 85025; 85610; 85730; 86140; 87077; 87086; 87186; 87635; 93005; 96360; 99284; A9270-GY; G0480; J1644; U0003

== ENCOUNTER 2020-10-19 10:18 | Inpatient (IN) ==
[2020-10-19] MEDS ORDERED: Clindamycin 600 MG/D5W BAG 600 MG/50 ML BAG IV ONE (11:02)
[2020-10-19 12:39] LABS: ABS Basophils 0.1 10^3/ul (0-0.2); ABS Lymphocytes 1.4 10^3/ul (1.0-4.8); ABS Neutrophils 11.5 10^3/ul (1.5-7.7); Eosinophil % 0.2 %; Hematocrit 38 % (35-47); Hemoglobin 12.9 g/dL (12.0-16.0); Lymphocyte % 10.3 %; Mean Corpuscular HGB Conc 34 g/dL (31-36); Mean Corpuscular Hemoglobin 34 pg (27-31); Mean Corpuscular Volume 101 fL (80-97); Mean Platelet Volume 7.9 fL (7.4-10.4); Platelet Count 240 10^3/uL (150-450); Red Blood Count 3.76 10^6 /uL (3.70-4.87); Red Cell Distribution Width 14 % (10-15)
[2020-10-19 13:03] LABS: Albumin 4.1 g/dL (3.2-5.2); Albumin/Globulin Ratio 1.1 (1-3); BUN/Creatinine Ratio 19.3 (8-20); C Reactive Protein 97.69 mg/L (<8.01); Calcium 9.9 mg/dL (8.6-10.3); EGFR African American 59.1 (>60); EGFR Non-African American 48.8 (>60); Globulin 3.9 g/dL (2-4); Potassium 4.3 mmol/L (3.5-5.0); Total Bilirubin 0.5 mg/dL (0.2-1.0)
[2020-10-19 14:09] LABS: Erythrocyte Sed Rate 105 mm/Hr (0-29)
[2020-10-19] MEDS ORDERED: Levalbuterol 0.63MG/3ML NEB UNIT OF USE INH PRN (14:12)
[2020-10-19] MEDS ORDERED: Albuterol HFA INHALER 8 gm MDI INH PRN (15:01)
[2020-10-19] MEDS ORDERED: Cefepime ADVAN 1 GM in NS 0.9% 50 ML 50 ML IVPB SCH (15:30)
[2020-10-19] MEDS ORDERED: Vancomycin 1,000 MG in NS 0.9% 250 ml 250 ML IVPB ONE (16:00)
[2020-10-19] MEDS ORDERED: Vancomycin per Pharmacy 1 EA NOTE FOLLOW UP PRN (16:11)
[2020-10-19] MEDS: Mometasone/Formoter 200/5 MDI INH SCH ×3 (16:39→21:00)
[2020-10-19] MEDS: Aspirin EC 81 mg TAB.EC (enteric coated) PO SCH (17:06)
[2020-10-19] MEDS: Cefepime 1 GM in Dextrose 1 GM/50 ML BAG IV SCH (17:07)
[2020-10-19] MEDS: CMC:Rosuvastatin 20 mg TAB (NF) PO SCH (18:20)
[2020-10-19] MEDS: Tapentadol 50 mg TAB (NF) PO PRN (18:22)
[2020-10-19] MEDS: Enoxaparin 40 MG/0.4 ML SYR SUBCUT SCH (20:29)
[2020-10-19] MEDS: CMC: Ranolazine 500 mg TAB (NF) PO SCH (20:29)
[2020-10-19] MEDS: LUBIPROSTONE 8 MCG PO SCH (20:30)
[2020-10-20] MEDS ORDERED: Dextrose 50% Syringe 50 ml 25 GM/50 ML SYRINGE IV PUSH PRN (00:07)
[2020-10-20] MEDS: Cefepime 1 GM in Dextrose 1 GM/50 ML BAG IV SCH ×2 (03:32→15:45)
[2020-10-20 06:25] LABS: Hematocrit 32 % (35-47); Hemoglobin 11.1 g/dL (12.0-16.0); Mean Corpuscular HGB Conc 35 g/dL (31-36); Mean Corpuscular Hemoglobin 35 pg (27-31); Mean Corpuscular Volume 100 fL (80-97); Mean Platelet Volume 8.1 fL (7.4-10.4); Platelet Count 207 10^3/uL (150-450); Red Blood Count 3.22 10^6 /uL (3.70-4.87); Red Cell Distribution Width 14 % (10-15); White Blood Count 9.2 10^3/uL (3.5-10.8)
[2020-10-20 06:48] LABS: BUN/Creatinine Ratio 23.6 (8-20); Calcium 8.4 mg/dL (8.6-10.3); EGFR Non-African American 50.4 (>60); Potassium 4.6 mmol/L (3.5-5.0)
[2020-10-20] MEDS: Mometasone/Formoter 200/5 MDI INH SCH ×2 (07:40→19:39)
[2020-10-20] MEDS: Vancomycin 1000 MG in NS 0.9% 250 ML IVPB SCH ×2 (08:44→18:14)
[2020-10-20] MEDS: CMC: Ranolazine 500 mg TAB (NF) PO SCH ×2 (08:49→21:12)
[2020-10-20] MEDS: Aspirin EC 81 mg TAB.EC (enteric coated) PO SCH (08:50)
[2020-10-20] MEDS: Isosorbide Mononit ER 60mg TAB PO SCH (08:51)
[2020-10-20] MEDS: LUBIPROSTONE 8 MCG PO SCH ×2 (08:54→21:09)
[2020-10-20] MEDS ORDERED: Potassium Chlor 20 meq TAB.ER PO SCH (09:00)
[2020-10-20] MEDS: Potassium Chlor 10 meq TAB PO SCH (10:32)
[2020-10-20 16:24] LABS: Urine Appearance Cloudy; Urine Bilirubin Negative (Negative); Urine Blood Negative (Negative); Urine Color Yellow; Urine Glucose Negative (Negative); Urine Ketones Negative (Negative); Urine Nitrite Negative (Negative); Urine Protein Negative (Negative); Urine Urobilinogen Negative (Negative)
[2020-10-20 16:29] LABS: Urine Bacteria Absent (Absent); Urine Red Blood Cell Trace(0-2/hpf) (Absent); Urine Squamous Epithelial Cell Present (Absent); Urine White Blood Cell 2+(11-20/hpf) (Absent)
[2020-10-20] MEDS: CMC:Rosuvastatin 20 mg TAB (NF) PO SCH (18:27)
[2020-10-20] MEDS: Enoxaparin 40 MG/0.4 ML SYR SUBCUT SCH (21:13)
[2020-10-21] MEDS: Cefepime 1 GM in Dextrose 1 GM/50 ML BAG IV SCH (03:48)
[2020-10-21] MEDS: Tapentadol 50 mg TAB (NF) PO PRN ×2 (05:03→20:47)
[2020-10-21 05:19] LABS: EGFR African American 46.1 (>60); EGFR Non-African American 38.1 (>60)
[2020-10-21 05:24] LABS: Vancomycin Trough 17.1 mcg/mL
[2020-10-21] MEDS ORDERED: Vancomycin Trough Check NOTE FOLLOW UP ONE (05:30)
[2020-10-21] MEDS: Vancomycin 1000 MG in NS 0.9% 250 ML IVPB SCH (06:17)
[2020-10-21] MEDS: Mometasone/Formoter 200/5 MDI INH SCH ×2 (08:00→19:55)
[2020-10-21] MEDS: Aspirin EC 81 mg TAB.EC (enteric coated) PO SCH (08:38)
[2020-10-21] MEDS: Isosorbide Mononit ER 60mg TAB PO SCH (08:40)
[2020-10-21] MEDS: Potassium Chlor 10 meq TAB PO SCH (08:40)
[2020-10-21] MEDS: CMC: Ranolazine 500 mg TAB (NF) PO SCH ×2 (08:40→19:55)
[2020-10-21] MEDS: LUBIPROSTONE 8 MCG PO SCH ×2 (11:16→19:55)
[2020-10-21] MEDS: cefTRIAXone 1 gm/50 mL NS BAG 1 GM/50 ML BAG IVPB SCH (13:58)
[2020-10-21] MEDS: CMC:Rosuvastatin 20 mg TAB (NF) PO SCH (17:21)
[2020-10-21] MEDS: Enoxaparin 40 MG/0.4 ML SYR SUBCUT SCH (19:54)
[2020-10-22 07:16] LABS: BUN/Creatinine Ratio 21.6 (8-20); C Reactive Protein 47.44 mg/L (<8.01); Calcium 8.3 mg/dL (8.6-10.3); EGFR African American 46.5 (>60); EGFR Non-African American 38.5 (>60); Magnesium 1.9 mg/dL (1.9-2.7); Potassium 4.8 mmol/L (3.5-5.0)
[2020-10-22 07:35] LABS: Hematocrit 30 % (35-47); Hemoglobin 10.1 g/dL (12.0-16.0); Mean Corpuscular HGB Conc 33 g/dL (31-36); Mean Corpuscular Hemoglobin 35 pg (27-31); Mean Corpuscular Volume 104 fL (80-97); Mean Platelet Volume 9.2 fL (7.4-10.4); Platelet Count 187 10^3/uL (150-450); Red Cell Distribution Width 14 % (10-15); White Blood Count 7.7 10^3/uL (3.5-10.8)
[2020-10-22] MEDS: Potassium Chlor 10 meq TAB PO SCH (08:08)
[2020-10-22] MEDS: Aspirin EC 81 mg TAB.EC (enteric coated) PO SCH (08:09)
[2020-10-22] MEDS: Isosorbide Mononit ER 60mg TAB PO SCH (08:10)
[2020-10-22] MEDS: Mometasone/Formoter 200/5 MDI INH SCH ×2 (08:24→19:42)
[2020-10-22] MEDS: LUBIPROSTONE 8 MCG PO SCH ×2 (11:08→20:05)
[2020-10-22] MEDS: CMC: Ranolazine 500 mg TAB (NF) PO SCH ×2 (11:09→20:05)
[2020-10-22] MEDS: cefTRIAXone 1 gm/50 mL NS BAG 1 GM/50 ML BAG IVPB SCH (14:58)
[2020-10-22] MEDS: CMC:Rosuvastatin 20 mg TAB (NF) PO SCH (17:40)
[2020-10-22] MEDS: Enoxaparin 40 MG/0.4 ML SYR SUBCUT SCH (20:04)
[2020-10-22] MEDS ORDERED: Insulin GLARGINE 100 un/ml 10 ml VIAL SUBCUT SCH (21:00)
[2020-10-23] MEDS: Mometasone/Formoter 200/5 MDI INH SCH ×2 (07:58→19:39)
[2020-10-23] MEDS: Aspirin EC 81 mg TAB.EC (enteric coated) PO SCH (08:12)
[2020-10-23] MEDS: Isosorbide Mononit ER 60mg TAB PO SCH (08:13)
[2020-10-23] MEDS: Potassium Chlor 10 meq TAB PO SCH (08:14)
[2020-10-23] MEDS: CMC: Ranolazine 500 mg TAB (NF) PO SCH ×2 (08:21→21:53)
[2020-10-23] MEDS: LUBIPROSTONE 8 MCG PO SCH ×2 (08:22→21:56)
[2020-10-23 08:23] LABS: ABS Eosinophils 0.1 10^3/ul (0-0.6); ABS Lymphocytes 1.5 10^3/ul (1.0-4.8); ABS Monocytes 0.6 10^3/ul (0-0.8); ABS Neutrophils 5.6 10^3/ul (1.5-7.7); Eosinophil % 0.9 %; Hematocrit 30 % (35-47); Hemoglobin 10.3 g/dL (12.0-16.0); Lymphocyte % 19.2 %; Mean Corpuscular HGB Conc 35 g/dL (31-36); Mean Corpuscular Hemoglobin 35 pg (27-31); Mean Corpuscular Volume 100 fL (80-97); Mean Platelet Volume 8.5 fL (7.4-10.4); Platelet Count 217 10^3/uL (150-450); Red Blood Count 2.98 10^6 /uL (3.70-4.87); Red Cell Distribution Width 13 % (10-15); White Blood Count 7.9 10^3/uL (3.5-10.8)
[2020-10-23 08:25] LABS: BUN/Creatinine Ratio 20.7 (8-20); Calcium 8.8 mg/dL (8.6-10.3); EGFR African American 52.3 (>60); EGFR Non-African American 43.3 (>60); Potassium 4.8 mmol/L (3.5-5.0)
[2020-10-23] MEDS: cefTRIAXone 1 gm/50 mL NS BAG 1 GM/50 ML BAG IVPB SCH (13:04)
[2020-10-23] MEDS: CMC:Rosuvastatin 20 mg TAB (NF) PO SCH (18:02)
[2020-10-23] MEDS ORDERED: Insulin GLARGINE 100 un/ml 10 ml VIAL SUBCUT SCH (21:00)
[2020-10-23] MEDS: Tapentadol 50 mg TAB (NF) PO PRN (21:52)
[2020-10-23] MEDS: Enoxaparin 40 MG/0.4 ML SYR SUBCUT SCH (21:52)
[2020-10-23] MEDS: Insulin GLARGINE 100 un/ml 10 ml VIAL SUBCUT SCH (21:53)
[2020-10-24 06:49] LABS: ABS Eosinophils 0.1 10^3/ul (0-0.6); ABS Lymphocytes 1.5 10^3/ul (1.0-4.8); ABS Monocytes 0.7 10^3/ul (0-0.8); ABS Neutrophils 5.6 10^3/ul (1.5-7.7); Eosinophil % 0.9 %; Hematocrit 29 % (35-47); Hemoglobin 10.1 g/dL (12.0-16.0); Mean Corpuscular HGB Conc 35 g/dL (31-36); Mean Corpuscular Hemoglobin 34 pg (27-31); Mean Corpuscular Volume 99 fL (80-97); Platelet Count 233 10^3/uL (150-450); Red Blood Count 2.96 10^6 /uL (3.70-4.87); Red Cell Distribution Width 14 % (10-15); White Blood Count 7.9 10^3/uL (3.5-10.8)
[2020-10-24 07:05] LABS: BUN/Creatinine Ratio 18.6 (8-20); C Reactive Protein 24.34 mg/L (<8.01); EGFR African American 56.6 (>60); EGFR Non-African American 46.8 (>60); Potassium 4.6 mmol/L (3.5-5.0)
[2020-10-24] MEDS: Mometasone/Formoter 200/5 MDI INH SCH ×2 (08:21→20:12)
[2020-10-24] MEDS: Aspirin EC 81 mg TAB.EC (enteric coated) PO SCH (09:27)
[2020-10-24] MEDS: Isosorbide Mononit ER 60mg TAB PO SCH (09:27)
[2020-10-24] MEDS: Potassium Chlor 10 meq TAB PO SCH (09:28)
[2020-10-24] MEDS: CMC: Ranolazine 500 mg TAB (NF) PO SCH ×2 (09:29→22:41)
[2020-10-24] MEDS: LUBIPROSTONE 8 MCG PO SCH ×2 (09:29→19:55)
[2020-10-24] MEDS: cefTRIAXone 1 gm/50 mL NS BAG 1 GM/50 ML BAG IVPB SCH (13:27)
[2020-10-24] MEDS: CMC:Rosuvastatin 20 mg TAB (NF) PO SCH (17:31)
[2020-10-24] MEDS: Enoxaparin 40 MG/0.4 ML SYR SUBCUT SCH (19:53)
[2020-10-24] MEDS: Insulin GLARGINE 100 un/ml 10 ml VIAL SUBCUT SCH (19:54)
[2020-10-25] MEDS: Mometasone/Formoter 200/5 MDI INH SCH (07:51)
[2020-10-25 09:12] VITALS: BP 146/61
[2020-10-25] MEDS: Isosorbide Mononit ER 60mg TAB PO SCH (09:19)
[2020-10-25] MEDS: Aspirin EC 81 mg TAB.EC (enteric coated) PO SCH (09:20)
[2020-10-25] MEDS: LUBIPROSTONE 8 MCG PO SCH (09:21)
[2020-10-25] MEDS: Potassium Chlor 10 meq TAB PO SCH (09:21)
[2020-10-25] MEDS: CMC: Ranolazine 500 mg TAB (NF) PO SCH (11:29)
== END 2020-10-25 11:35 | disposition home health service (06) | DRG 638 ==
LOC: ED 10:18 → MED 10:18 → SSU 10-20 23:05 → MED 10-21 05:07
PROVIDERS: ADMIT Hospitalist; ATTEND Student in an Organized Health Care Education/Training Program

== ENCOUNTER 2022-04-19 08:44 | Inpatient (IN) ==
[2022-04-19 10:42] LABS: CO2 Carbon Dioxide 27 mmol/L (22-32); Chloride 102 mmol/L (101-111); Sodium 136 mmol/L (135-145)
[2022-04-19 10:48] LABS: Blood Urea Nitrogen 27 mg/dL (6-24); Glucose 133 mg/dL (70-100); eGFR CKD-EPI 40.2 (>60)
[2022-04-19 10:53] LABS: Anion Gap 7 mmol/L (2-11)
[2022-04-19] MEDS ORDERED: Metoprolol Tartrate 5 mg VIAL 5 ml VIAL (1 mg/ml) ONE (11:07)
[2022-04-19 11:37] LABS: Potassium, Whole Blood 4.4 mmol/L (3.4-4.5)
[2022-04-19] MEDS ORDERED: Iohexol 350 (CONTRAST) 500 ML MDV IV ONE (12:04)
[2022-04-19] MEDS ORDERED: Albuterol HFA INHALER 8 gm MDI INH PRN (16:02)
[2022-04-19] MEDS ORDERED: Levalbuterol 0.63MG/3ML NEB UNIT OF USE INH PRN (16:02)
[2022-04-19] MEDS ORDERED: INSULIN LISPRO 100 UNIT/ML SUBCUT SCH (16:15)
[2022-04-19] MEDS ORDERED: Dextrose 50% Syringe 50 ml 25 GM/50 ML SYRINGE IV PUSH PRN (16:22)
[2022-04-19 16:47] LABS: ABS Eosinophils 0.2 10^3/ul (0-0.6); ABS Lymphocytes 1.9 10^3/ul (1.0-4.8); ABS Monocytes 0.5 10^3/ul (0-0.8); ABS Neutrophils 2.8 10^3/ul (1.5-7.7); Eosinophil % 3.1 %; Hematocrit 36 % (35-47); Hemoglobin 11.7 g/dL (12.0-16.0); Lymphocyte % 34.6 %; Mean Corpuscular HGB Conc 33 g/dL (31-36); Mean Corpuscular Hemoglobin 32 pg (27-31); Mean Corpuscular Volume 98 fL (80-97); Mean Platelet Volume 7.9 fL (7.4-10.4); Nucleated Red Blood Cells % 0.1; Platelet Count 220 10^3/uL (150-450); Red Blood Count 3.64 10^6 /uL (3.70-4.87); Red Cell Distribution Width 14 % (10-15); White Blood Count 5.4 10^3/uL (3.5-10.8)
[2022-04-19 17:56] LABS: TSH Ultra Thyroid Stim Horm 1.36 mcIU/mL (0.34-5.60)
[2022-04-19 18:15] LABS: High Sensitivity Troponin 1 Hr 11 pg/mL (<15)
[2022-04-19] MEDS ORDERED: Heparin 5000 UNITS/ML 1 mL VIAL SUBCUT ONE (19:33)
[2022-04-19] MEDS: Mometasone/Formoter 200/5 MDI INH SCH (19:41)
[2022-04-19] MEDS ORDERED: NS 0.9% 1000 ml BAG 1,000 ML IV ONE (21:17)
[2022-04-19] MEDS: Ranolazine 500 mg TAB ER (NF) PO SCH (21:45)
[2022-04-20] MEDS ORDERED: Midazolam 5 mg/5 ml VIAL 1 mg/ml 5 ml VIAL (5 mg) ONE (07:15)
[2022-04-20] MEDS ORDERED: VERAPAMIL 2.5 MG/ML 2 ML VIAL ** 5 mg/2 ml ONE (07:15)
[2022-04-20] MEDS ORDERED: fentaNYL 100 mcg/2 ml 50 MCG/ML VIAL ONE (07:15)
[2022-04-20] MEDS ORDERED: Heparin 1,000 UNIT/ML 10 ml (10,000 UNITS) CATHLAB/DIALYSIS ONE (07:16)
[2022-04-20] MEDS ORDERED: Heparin 2 UNITS/ML 1000 mls 2,000 ML IV ONE (07:16)
[2022-04-20] MEDS ORDERED: nitroGLYCERIN DRIP 25,000 MCG/250 ML BTL ONE (07:16)
[2022-04-20] MEDS ORDERED: Lidocaine 1% MPF 5 ML VIAL ONE (07:17)
[2022-04-20] MEDS ORDERED: Iohexol 350 (CONTRAST) 50 ML SDV IV ONE (07:17)
[2022-04-20] MEDS: Mometasone/Formoter 200/5 MDI INH SCH ×3 (07:54→20:54)
[2022-04-20] MEDS ORDERED: Iohexol 350 (CONTRAST) 200 ML MDV IV ONE (08:07)
[2022-04-20] MEDS ORDERED: Bivalirudin 250 MG VIAL ONE (08:10)
[2022-04-20] MEDS ORDERED: Aspirin EC 81 mg TAB.EC (enteric coated) PO SCH ×2 (09:00)
[2022-04-20] MEDS ORDERED: NS 0.9% 1000 ml BAG 1,000 ML IV SCH (09:15)
[2022-04-20] MEDS: Cholecalciferol (VIT D3) 1,000 unit TAB PO SCH (09:24)
[2022-04-20] MEDS: Isosorbide Mononit ER 60mg TAB PO SCH (09:25)
[2022-04-20 13:10] LABS: Calcium 9.3 mg/dL (8.6-10.3); eGFR CKD-EPI 50.3 (>60)
[2022-04-20] MEDS: Ranolazine 500 mg TAB ER (NF) PO SCH ×2 (14:16→21:05)
[2022-04-20 15:56] LABS: HDL Cholesterol 46.4 mg/dL
[2022-04-20 22:23] LABS: High Sensitivity Troponin 1 Hr 17 pg/mL (<15)
[2022-04-21 05:28] LABS: ABS Eosinophils 0.2 10^3/ul (0-0.6); ABS Lymphocytes 1.3 10^3/ul (1.0-4.8); ABS Monocytes 0.5 10^3/ul (0-0.8); ABS Neutrophils 4.2 10^3/ul (1.5-7.7); Eosinophil % 3.6 %; Hematocrit 32 % (35-47); Hemoglobin 10.5 g/dL (12.0-16.0); Lymphocyte % 21.1 %; Mean Corpuscular HGB Conc 33 g/dL (31-36); Mean Corpuscular Hemoglobin 32 pg (27-31); Mean Corpuscular Volume 96 fL (80-97); Mean Platelet Volume 7.7 fL (7.4-10.4); Platelet Count 214 10^3/uL (150-450); Red Blood Count 3.35 10^6 /uL (3.70-4.87); Red Cell Distribution Width 15 % (10-15); White Blood Count 6.3 10^3/uL (3.5-10.8)
[2022-04-21 05:54] LABS: Albumin 3.4 g/dL (3.2-5.2); Albumin/Globulin Ratio 1.2 (1-3); Calcium 9.2 mg/dL (8.6-10.3); Globulin 2.9 g/dL (2-4); Magnesium 1.8 mg/dL (1.9-2.7); Potassium 4.6 mmol/L (3.5-5.0); Total Bilirubin 0.4 mg/dL (0.2-1.0); Total Protein 6.3 g/dL (6.4-8.9); eGFR CKD-EPI 48.8 (>60)
[2022-04-21] MEDS ORDERED: Magnesium Sulfate IV 1GM/100ML 1 GM/100 ML BAG IV ONE (07:23)
[2022-04-21] MEDS: Isosorbide Mononit ER 60mg TAB PO SCH (07:56)
[2022-04-21] MEDS: Cholecalciferol (VIT D3) 1,000 unit TAB PO SCH (07:57)
[2022-04-21] MEDS: Ranolazine 500 mg TAB ER (NF) PO SCH (07:57)
[2022-04-21 09:48] VITALS: BP 146/99
== END 2022-04-21 09:00 | disposition home or self-care (01) | DRG 247 ==
LOC: CHICATH 08:44 → MEDTELE 08:44 → OBSVTOIN 13:45 → ICU 04-20 09:12
PROVIDERS: ATTEND Internal Medicine

== ENCOUNTER 2022-08-04 00:32 | Inpatient (IN) ==
[2022-08-04] MEDS ORDERED: NS 0.9% 1000 ml BAG 1,000 ML IV ONE (00:49)
[2022-08-04 00:58] LABS: ABS Basophils 0.1 10^3/ul (0-0.2); ABS Eosinophils 0.1 10^3/ul (0-0.6); ABS Lymphocytes 1.7 10^3/ul (1.0-4.8); ABS Monocytes 0.2 10^3/ul (0-0.8); ABS Neutrophils 8.4 10^3/ul (1.5-7.7); Eosinophil % 0.6 %; Hematocrit 34 % (35-47); Lymphocyte % 16.5 %; Mean Corpuscular HGB Conc 33 g/dL (31-36); Mean Corpuscular Hemoglobin 32 pg (27-31); Mean Corpuscular Volume 98 fL (80-97); Mean Platelet Volume 8.1 fL (7.4-10.4); Nucleated Red Blood Cells % 0.1; Platelet Count 195 10^3/uL (150-450); Red Blood Count 3.46 10^6 /uL (3.70-4.87); Red Cell Distribution Width 14 % (10-15); White Blood Count 10.5 10^3/uL (3.5-10.8)
[2022-08-04 01:04] LABS: INR 1.21 (0.89-1.11)
[2022-08-04 01:34] LABS: Albumin 3.7 g/dL (3.2-5.2); Albumin/Globulin Ratio 1.2 (1-3); Calcium 9.6 mg/dL (8.6-10.3); Total Bilirubin 0.7 mg/dL (0.2-1.0); Total Protein 6.7 g/dL (6.4-8.9); eGFR CKD-EPI 24.5 (>60)
[2022-08-04] MEDS ORDERED: metroNIDAZOLE IV 500 MG/100ML 500 MG/100 ML BAG IVPB ONE (01:36)
[2022-08-04] MEDS ORDERED: Lactated Ringers SEPSIS* BAG 1,850 ML IV ONE (01:36)
[2022-08-04] MEDS ORDERED: Cefepime 2 GM in Dextrose 2 GM/50 ML BAG IV ONE (01:36)
[2022-08-04 01:53] LABS: Urine Appearance Cloudy; Urine Bilirubin Negative (Negative); Urine Blood Negative (Negative); Urine Color Yellow; Urine Glucose Negative (Negative); Urine Ketones Negative (Negative); Urine Nitrite Negative (Negative); Urine Protein Negative (Negative); Urine Urobilinogen Negative (Negative)
[2022-08-04 01:54] LABS: Activated Partial Thrombo Time 31.3 seconds (26.0-38.0)
[2022-08-04 01:59] LABS: Urine Bacteria 1+ (Absent); Urine Red Blood Cell Trace(0-2/hpf) (Absent); Urine Squamous Epithelial Cell Present (Absent); Urine White Blood Cell 3+(>20/hpf) (Absent)
[2022-08-04] MEDS ORDERED: Vancomycin 1,500 MG in NS 0.9% 250 ml 250 ML IVPB SCH (02:00)
[2022-08-04] MEDS ORDERED: Vancomycin 2,000 MG in NS 0.9% 500 ml BAG 500 ML IVPB ONE (02:00)
[2022-08-04 02:03] LABS: C Reactive Protein 7.05 mg/L (<8.01)
[2022-08-04] MEDS ORDERED: Ondansetron 4 mg VIAL 2 MG/ML 2 ml VIAL IV PRN (02:47)
[2022-08-04] MEDS ORDERED: Polyethylene Glycol 3350 17 GM PACKET PO PRN (02:50)
[2022-08-04] MEDS ORDERED: Senna TAB 8.6 mg TAB PO PRN (02:50)
[2022-08-04] MEDS ORDERED: Magnesium Hydroxide LIQ 30 ML UDC PO PRN (02:50)
[2022-08-04] MEDS ORDERED: Levalbuterol 0.63MG/3ML NEB UNIT OF USE INH PRN (02:58)
[2022-08-04] MEDS ORDERED: Dextrose 50% Syringe 50 ml 25 GM/50 ML SYRINGE IV PUSH PRN (03:00)
[2022-08-04] MEDS ORDERED: Norepinephrine 16MCG/ML BAG NS 4,000 MCG/250 ML BAG IV SCH (03:00)
[2022-08-04] MEDS ORDERED: Ondansetron 4 mg VIAL 2 MG/ML 2 ml VIAL ONE (03:44)
[2022-08-04] MEDS ORDERED: NS 0.9% 1000 ml BAG 1,000 ML IV SCH ×2 (05:15→06:15)
[2022-08-04 05:16] LABS: Hematocrit 35 % (35-47); Mean Corpuscular HGB Conc 32 g/dL (31-36); Mean Corpuscular Hemoglobin 32 pg (27-31); Mean Corpuscular Volume 99 fL (80-97); Mean Platelet Volume 8.2 fL (7.4-10.4); Platelet Count 202 10^3/uL (150-450); Red Blood Count 3.48 10^6 /uL (3.70-4.87); Red Cell Distribution Width 15 % (10-15); White Blood Count 15.1 10^3/uL (3.5-10.8)
[2022-08-04 05:33] LABS: ABS Lymphocytes 0.9 10^3/ul (1.0-4.8); ABS Monocytes 0.9 10^3/ul (0-0.8); ABS Neutrophils 13.7 10^3/ul (1.5-7.7); Eosinophil % 0.1 %; Lymphocyte % 5.8 %
[2022-08-04 05:38] LABS: High Sensitivity Troponin 1 Hr 17 pg/mL (<15)
[2022-08-04] MEDS: Magnesium Hydroxide LIQ 30 ML UDC PO SCH ×2 (06:00→09:40)
[2022-08-04] MEDS ORDERED: Enoxaparin 40 MG/0.4 ML SYR SUBCUT SCH (06:00)
[2022-08-04] MEDS ORDERED: Mometasone/Formoter 200/5 MDI INH SCH (07:00)
[2022-08-04] MEDS: Norepinephrine 16MCG/ML BAGD5W 4,000 MCG/250 ML BAG IV SCH ×2 (07:37→11:11)
[2022-08-04] MEDS ORDERED: Aspirin EC 81 mg TAB.EC (enteric coated) PO SCH (09:00)
[2022-08-04 09:23] LABS: Venous Bicarbonate HCO3 9.1 mmol/L (24-28)
[2022-08-04 09:54] LABS: Calcium 8.4 mg/dL (8.6-10.3); eGFR CKD-EPI 23.3 (>60)
[2022-08-04] MEDS ORDERED: metroNIDAZOLE IV 500 MG/100ML 500 MG/100 ML BAG IVPB SCH (10:00)
[2022-08-04] MEDS ORDERED: Hydrocortisone INJ 100 MG/2ML 2 ML VIAL IV SCH (10:00)
[2022-08-04] MEDS ORDERED: Pantoprazole VIAL 40 MG VIAL IV SCH (10:00)
[2022-08-04] MEDS ORDERED: Meropenem 2 GM in NS 0.9% 100 ml BAG 100 ML IVPB SCH (10:00)
[2022-08-04 10:15] LABS: Potassium 5.5 mmol/L (3.5-5.0)
[2022-08-04] MEDS ORDERED: Sodium Bicarbonate 8.4% SYR 50 ml SYRINGE IV ONE (10:25)
[2022-08-04] MEDS ORDERED: Lactated Ringers 1000 ml BAG 1,000 ML IV ONE (10:27)
[2022-08-04] MEDS ORDERED: Lactated Ringers 500 ml BAG 500 ML IV ONE (10:30)
[2022-08-04] MEDS ORDERED: Sodium Bicarbonate 8.4% SYR 50 ml SYRINGE ONE (10:31)
[2022-08-04 10:39] LABS: Albumin 3.4 g/dL (3.2-5.2); Albumin/Globulin Ratio 1.2 (1-3); Direct Bilirubin 0.2 mg/dL (0.03-0.18); Globulin 2.8 g/dL (2-4); Indirect Bilirubin 0.4 mg/dL (0.3-1.0); Total Bilirubin 0.6 mg/dL (0.2-1.0); Total Protein 6.2 g/dL (6.4-8.9)
[2022-08-04] MEDS: Lactated Ringers 1000 ml BAG 1,000 ML IV SCH ×2 (10:48→11:04)
[2022-08-04] MEDS ORDERED: Meropenem 1 GM PREMIX 1 GM/50 ML BAG IV SCH (11:00)
[2022-08-04 12:56] LABS: Calcium 8.4 mg/dL (8.6-10.3); eGFR CKD-EPI 23.1 (>60)
[2022-08-04 13:06] LABS: Potassium 5.3 mmol/L (3.5-5.0)
[2022-08-04] MEDS ORDERED: Lorazepam PYXIS KEY PRN (13:13)
[2022-08-04] MEDS ORDERED: LORazepam 2 mg VIAL 1 ml IV PUSH PRN (13:13)
[2022-08-04] MEDS ORDERED: fentaNYL 100 mcg/2 ml 50 MCG/ML VIAL IV SLOW PU PRN (13:14)
[2022-08-04] MEDS ORDERED: Lorazepam PYXIS KEY ONE (13:15)
[2022-08-04] MEDS ORDERED: LORazepam 2 mg VIAL 1 ml ONE (13:16)
[2022-08-04 15:19] VITALS: BP 90/43
[2022-08-04] MEDS ORDERED: cefTRIAXone 2 gm/50 mL D5W 2 GM/50 ML BAG IV SCH (22:00)
[2022-08-05] MEDS ORDERED: Heparin 5000 UNITS/ML 1 mL VIAL SUBCUT SCH (06:00)
[2022-08-05] MEDS ORDERED: Levothyroxine 100 MCG/5 ML VIAL IV SCH (06:00)
== END 2022-08-04 15:23 | disposition expired | DRG 871 ==
LOC: ED 00:32 → EDHOLD 02:47 → ICU 04:23
PROVIDERS: ADMIT Student in an Organized Health Care Education/Training Program; ATTEND Student in an Organized Health Care Education/Training Program